=== PATIENT | female | born 1955 | race Caucasian/White ===

== ENCOUNTER 2017-02-09 13:16 | Emergency (ER) | payer MEDICAID ==
--- NOTE | 2017-02-09 13:21 | EDM.PDOC ---
ED HPI GENERAL MEDICAL PROBLEM - General Stated Complaint: HIGH BP Time Seen by Provider: 02/09/17 13:18 Source of Information: Reports: Patient History Limitations: Reports: No Limitations - History of Present Illness INITIAL COMMENTS - FREE TEXT/NARRATIVE: HISTORY AND PHYSICAL: Hypertension HISTORY AND PHYSICAL: Hypertension History of present illness: Patient is a 68-year-old female that presents to the emergency room today from the [facility] with complaints of high blood pressure. This morning patient states she was in a hurry and did not take her blood pressure medication and continued to her doctor's appointment with Dr. Jackson. She reports that she was seeing Dr. Scout Jackson for a COPD exacerbation follow-up. Reports she has had productive cough with thick yellow sputum and mild low back pain when coughing/week. She was seen in the clinic on Sunday02/06/2017 and put on doxycycline and a Z-Deng which she has been taking. While being seen in the clinic Dr. Jackson noted a blood pressure of 218/108 and had been given 0.2 of clonidine by mouth without any change in blood pressure reading. Patient denies any chest pain, nausea, vomiting, change in vision. History of COPD, hypertension, depression Review of systems: As per history of present illness and below otherwise all systems reviewed and negative. Past medical history: As per history of present illness and as reviewed below otherwise noncontributory. Surgical history: As per history of present illness and as reviewed below otherwise noncontributory. Social history: No reported history of drug or alcohol abuse. Family history: As per history of present illness and as reviewed below otherwise noncontributory. Physical exam: HEENT: Atraumatic, normocephalic, pupils reactive, negative for conjunctival pallor or scleral icterus, mucous membranes moist, throat clear, neck supple, nontender, trachea midline. Lungs: Clear to auscultation, breath sounds equal bilaterally, chest nontender. Loose cough noted. Heart: S1S2, regular, negative for clicks, rubs, or JVD. Abdomen: Soft, nondistended, nontender. Negative for masses or hepatosplenomegaly. Negative for costovertebral tenderness. Pelvis: Stable nontender. Genitourinary: Deferred. Rectal: Deferred. Extremities: Atraumatic, negative for cords or calf pain. Neurovascular unremarkable. Neuro: Awake, alert, oriented. Cranial nerves II through XII unremarkable. Cerebellum unremarkable. Motor and sensory unremarkable throughout. Exam nonfocal. Diagnostics: CBC, CMP, EKG, CXR Therapeutics: BP monitoring Impression: Hypertension Definitive disposition and diagnosis as appropriate pending reevaluation and review of above. Onset: Today Improves with: Reports: None Worsens with: Reports: Other (Coughing) Associated Symptoms: Reports: Cough head Pain Score (Numeric/FACES): 5 chest Pain Score (Numeric/FACES): 3 - Related Data Allergies Allergy/AdvReac Type Severity Reaction Status Date / Time No Known Allergies Allergy Verified 02/09/17 13:20 Home Meds: Home Meds Venlafaxine [Effexor XR] 75 mg PO DAILY 11/07/13 [History] Albuterol [Proair HFA] 1 - 2 puff INH Q4H PRN 06/02/14 [History] Verapamil HCl [Calan Sr] 180 mg PO DAILY 05/22/16 [History] Albuterol/Ipratropium [DuoNeb 3.0-0.5 MG/3 ML] 3 ml NEB Q6H PRN #1 box 05/26/16 [Rx] Citalopram [Celexa] 20 mg PO DAILY #30 tablet 05/26/16 [Rx] Fluticasone/Salmeterol [Advair Diskus 500-50] 1 puff INH BID #1 diskus 05/26/16 [Rx] Levofloxacin [Levaquin] 750 mg PO Q48H #3 tablet 05/26/16 [Rx] Lisinopril 20 mg PO DAILY #30 tablet 05/26/16 [Rx] Multivitamin [Multi-Day Vitamins] 1 each PO DAILY #1 bottle 05/26/16 [Rx] Venlafaxine [Effexor] 75 mg PO DAILY #60 tablet 05/26/16 [Rx] predniSONE 10 mg PO .TAPER #30 tablet 05/26/16 [Rx] Past Medical History HEENT History: Reports: None Cardiovascular History: Reports: Hypertension Respiratory History: Reports: COPD Gastrointestinal History: Reports: Diverticulosis Other Genitourinary History: kidney stones 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 Denies: Diabetes, Type II, Hypothyroidism Hematologic History: Reports: None Dermatologic History: Reports: None - Infectious Disease History Infectious Disease History: Reports: Chicken Pox, Hepatitis C, Measles, Mumps - Past Surgical History HEENT Surgical History: Reports: None Cardiovascular Surgical History: Reports: None GI Surgical History: Reports: Appendectomy Female Surgical History: Reports: None Other Musculoskeletal Surgeries/Procedures:: rt shoulder surg Social & Family History - Family History Family Medical History: Noncontributory - Tobacco Use Smoking Status *Q: Former Smoker Years of Tobacco use: 30 Packs/Tins Daily: 0.2 Used Tobacco, but Quit: No Month Tobacco Last Used: 11/2014 Second Hand Smoke Exposure: Yes - Caffeine Use Caffeine Use: Reports: Coffee, Soda, Tea - Alcohol Use Days Per Week of Alcohol Use: 7 Number of Drinks Per Day: 4 Total Drinks Per Week: 28 - Recreational Drug Use Recreational Drug Use: No Drug Use in Last 12 Months: Yes Recreational Drug Type: Reports: Methamphetamine ED ROS GENERAL - Review of Systems Review Of Systems: ROS reveals no pertinent complaints other than HPI. ED EXAM, GENERAL - Physical Exam Exam: See Below (See dictation) Course - Vital Signs Last Recorded V/S: Last Vital Signs Temp 36.2 C 02/09/17 13:16 Pulse 79 02/09/17 14:57 Resp 18 02/09/17 14:57 BP 194/109 H 02/09/17 14:57 Pulse Ox 95 02/09/17 14:57 - Orders/Labs/Meds Orders: Active Orders 24 hr Category Date Time Status EKG Documentation Completion [RC] STAT Care 02/09/17 13:35 Active Labs: Laboratory Tests 02/09/17 02/09/17 Range/Units 13:40 13:40 WBC 11.68 H (4.0-11.0) K/uL RBC 4.79 (4.30-5.90) M/uL Hgb 13.8 (12.0-16.0) g/dL Hct 40.1 (36.0-46.0) % MCV 83.7 (80.0-98.0) fL MCH 28.8 (27.0-32.0) pg MCHC 34.4 (31.0-37.0) g/dL RDW Std Deviation 42.7 (28.0-62.0) fl RDW Coeff of Jamil 14 (11.0-15.0) % Plt Count 225 (150-400) K/uL MPV 9.30 (7.40-12.00) fL Neut % (Auto) 73.4 (48.0-80.0) % Lymph % (Auto) 17.2 (16.0-40.0) % [place] % (Auto) 8.8 (0.0-15.0) % Eos % (Auto) 0.4 (0.0-7.0) % Baso % (Auto) 0.2 (0.0-1.5) % Neut # (Auto) 8.6 H (1.4-5.7) K/uL Lymph # (Auto) 2.0 (0.6-2.4) K/uL [place] # (Auto) 1.0 H (0.0-0.8) K/uL Eos # (Auto) 0.1 (0.0-0.7) K/uL Baso # (Auto) 0.0 (0.0-0.1) K/uL Nucleated RBC % 0.0 /100WBC Nucleated RBCs # 0 K/uL Sodium 136 (136-146) mmol/L Potassium 4.0 (3.5-5.1) mmol/L Chloride 104 (98-110) mmol/L Carbon Dioxide 21 (21-31) mmol/L BUN 30 H (6.0-23.0) mg/dL Creatinine 1.2 (0.6-1.5) mg/dL Est Cr Clr Drug Dosing TNP Estimated GFR (MDRD) 45.8 ml/min Glucose 107 (60-110) mg/dL Calcium 9.7 (8.8-10.8) mg/dL Total Bilirubin 0.4 (0.1-1.5) mg/dL AST 19 (5-40) IU/L ALT 12 (8-54) IU/L Alkaline Phosphatase 128 (40-150) Total Protein 8.0 (6.0-8.0) g/dL Albumin 4.2 (3.4-4.8) g/dL Globulin 3.8 H (2.0-3.5) g/dL Albumin/Globulin Ratio 1.1 L (1.3-2.8) Meds: Medications Discontinued Medications Generic Name Dose Route Start Last Admin Trade Name Nancy PRN Reason Stop Dose Admin Lisinopril 20 mg 02/09/17 13:53 02/09/17 14:04 Prinivil PO 02/09/17 13:54 20 mg ONETIME ONE Administration Verapamil HCl 180 mg 02/09/17 13:53 02/09/17 14:12 Calan Sr PO 02/09/17 13:54 180 mg ONETIME ONE Administration Departure - Departure Time of Disposition: 15:27 Disposition: Home, Self-Care 01 Clinical Impression: Hypertension Qualifiers: Hypertension type: essential hypertension Qualified Code(s): I10 - Essential ( primary) hypertension - Discharge Information Additional Instructions: The following information is given to patients seen in the emergency department who are being discharged to home. This information is to outline your options for follow-up care. We provide all patients seen in our emergency department with a follow-up referral. The need for follow-up, as well as the timing and circumstances, are variable depending upon the specifics of your emergency department visit. If you don't have a primary care physician on staff, we will provide you with a referral. We always advise you to contact your personal physician following an emergency department visit to inform them of the circumstance of the visit and for follow-up with them and/or the need for any referrals to a consulting specialist. The emergency department will also refer you to a specialist when appropriate. This referral assures that you have the opportunity for followup care with a specialist. All of these measure are taken in an effort to provide you with optimal care, which includes your followup. Under all circumstances we always encourage you to contact your private physician who remains a resource for coordinating your care. When calling for followup care, please make the office aware that this follow-up is from your recent emergency room visit. If for any reason you are refused follow-up, please contact the [facility] emergency department at and asked to speak to the emergency department charge nurse. [facility] [address] [place] [id number] 1. Please take all your medications as prescribed. 2. Follow-up with her primary care provider in the next 1-2 days. Return to the ED as needed as discussed - My Orders Last 24 Hours: My Active Orders 02/09/17 13:35 EKG Documentation Completion [RC] STAT - Assessment/Plan Last 24 Hours: My Active Orders 02/09/17 13:35 EKG Documentation Completion [RC] STAT
[2017-02-09] MEDS ORDERED: Lisinopril 10 MG Tab PO ONE (13:53)
[2017-02-09] MEDS ORDERED: Verapamil 180 MG Tab.ER PO ONE (13:53)
[2017-02-09 14:05] LABS: CHLORIDE,CL 104 mmol/L (98-110); SODIUM,NA 136 mmol/L (136-146)
--- NOTE | 2017-02-09 14:38 | CR ---
EXAMINATION: Two-view chest (PA and Lateral views). HISTORY: Hypertension. Comparison: 08/02/2016. FINDINGS: The trachea is midline. The cardiomediastinal silhouette is within normal limits. No pulmonary infilt rates, effusions or pneumothorax. Mild chronic interstitial prominence most prominent within the lung bases. Osseous structures appear unremarkable. IMPRESSION: No acute cardiopulmonary process.
[2017-02-09 15:56] VITALS: BP 156/92
== END 2017-02-09 15:54 | disposition home or self-care (01) ==
LOC: MW.ED 13:16
DX: I10 Essential (primary) hypertension (principal); J44.9 Chronic obstructive pulmonary disease, unspecified; F32.9 Major depressive disorder, single episode, unspecified; Z79.899 Other long term (current) drug therapy; Z87.442 Personal history of urinary calculi; Z90.49 Acquired absence of other specified parts of digestive tract; Z87.891 Personal history of nicotine dependence
CPT/HCPCS: 36415; 71020; 80053; 85025; 93005; 99284; A9270

== ENCOUNTER 2017-05-14 18:23 | Emergency (ER) | payer SELFPAY ==
--- NOTE | 2017-05-14 18:31 | EDM.PDOC ---
ED HPI GENERAL MEDICAL PROBLEM - General Stated Complaint: PT HAS HIGH BLOOD PRESSURE Time Seen by Provider: 05/14/17 18:55 Source of Information: Reports: Patient History Limitations: Reports: No Limitations - History of Present Illness INITIAL COMMENTS - FREE TEXT/NARRATIVE: HISTORY AND PHYSICAL: High Blood Pressure History of present illness: Patient is a 61-year-old female who presents to the emergency room today with complaints of high blood pressure. She is currently incarcerated in [facility] and is chaperoned by a law officer. Today she has had a headache with some nausea. She' s had similar symptoms when her blood pressure high. Today's reading was 173/ 118. States she is on lisinopril, which she takes daily. Sees Dr. Scout Jackson regularly, which she saw approximately 2 months ago. She is on a where she had an adjustment in her blood pressure medication at that time. Denies any change in vision, chest pain, shortness of breath, vomiting or diarrhea. She denies any recent trauma, head injury, loss of consciousness or seizures. Denies any dysuria, change in bowel pattern. Patient has a past medical history of COPD, hypertension, and diabetes. She was seen in the emergency room 02/09/2017 complaints of high blood pressure. Review of systems: As per history of present illness and below otherwise all systems reviewed and negative. Past medical history: As per history of present illness and as reviewed below otherwise noncontributory. Surgical history: As per history of present illness and as reviewed below otherwise noncontributory. Social history: No reported history of drug or alcohol abuse. Family history: As per history of present illness and as reviewed below otherwise noncontributory. Physical exam: Gen.: Well-developed and under-nourished 61-year-old female. Appears nontoxic and in no acute distress. Alert and oriented HEENT: Atraumatic, normocephalic, pupils reactive, negative for conjunctival pallor or scleral icterus, mucous membranes moist, throat clear, neck supple, nontender, trachea midline. Lungs: Clear to auscultation, breath sounds equal bilaterally, chest nontender. Heart: S1S2, regular, negative for clicks, rubs, or JVD. Abdomen: Soft, nondistended, nontender. Negative for masses or hepatosplenomegaly. Negative for costovertebral tenderness. Pelvis: Stable, suprapubic tenderness. Genitourinary: Deferred. Rectal: Deferred. Extremities: Atraumatic, negative for cords or calf pain. Neurovascular unremarkable. Neuro: Awake, alert, oriented. Cranial nerves II through XII unremarkable. Cerebellum unremarkable. Motor and sensory unremarkable throughout. Exam nonfocal. Upon physical examination patient states she has had an upset stomach and has some suprapubic tenderness with palpation. I will add a UA on to assess for UTI , long with routine lab work. CT scan is negative. Lab work is within normal limits, other than a urinalysis that shows a UTI. Will increase her lisinopril to 30 mg once daily (from 20mg QD ), I will only dispense 15 tablets as I do want her to follow-up with her primary caregiver for reevaluation of her blood pressure. Current blood pressure is 178/98, which has improved since her first arrival. Her headache has also improved at a 3 out of 10. Macrobid 100 mg 1 tab twice a day 5 days will be dispensed for her UTI. I also would like her to follow-up with her primary care provider to make sure that this has resolved. 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 She voices understanding and is agreeable to plan of care. Diagnostics: CBC, CMP, UA Therapeutics: IV fluid, Zofran, Toradol, clonidine, Benadryl Impression: Hypertension UTI Plan: 1. Blood pressure continues to be elevated. Will increase the lisinopril from 20 mg now to 30 mg once daily. Only 15 tablets have been prescribed at this time as I do want to to follow-up with your primary care provider for reevaluation. He may benefit just your medications as he sees fit. 2. Your urinalysis shows a UTI. I will treat that with Macrobid 100 mg, 1 tab twice daily for 5 days. Please follow-up with your primary caregiver to ensure that this has resolved. Increase your oral fluid intake. May take Azo over-the- counter as needed. 3. Follow-up with your primary caregiver in the next 1-2 days. Return to the ED as needed and as discussed. Definitive disposition and diagnosis as appropriate pending reevaluation and review of above. Head Pain Score (Numeric/FACES): 9 - Related Data Allergies Allergy/AdvReac Type Severity Reaction Status Date / Time No Known Allergies Allergy Verified 02/09/17 13:20 Home Meds: Home Meds Lisinopril 20 mg PO DAILY #30 tablet 05/26/16 [Rx] Venlafaxine [Effexor] 75 mg PO DAILY #60 tablet 05/26/16 [Rx] Past Medical History - Past Health History Medical/Surgical History: Denies Medical/Surgical History HEENT History: Reports: None Cardiovascular History: Reports: Hypertension Respiratory History: Reports: COPD Gastrointestinal History: Reports: Diverticulosis Other Genitourinary History: kidney stones 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 Denies: Diabetes, Type II, Hypothyroidism Hematologic History: Reports: None Dermatologic History: Reports: None - Infectious Disease History Infectious Disease History: Reports: Chicken Pox, Hepatitis C, Measles, Mumps - Past Surgical History HEENT Surgical History: Reports: None Cardiovascular Surgical History: Reports: None GI Surgical History: Reports: Appendectomy Female Surgical History: Reports: None Other Musculoskeletal Surgeries/Procedures:: rt shoulder surg Social & Family History - Family History Family Medical History: Noncontributory - Tobacco Use Smoking Status *Q: Former Smoker Years of Tobacco use: 30 Packs/Tins Daily: 0.2 Used Tobacco, but Quit: No Month Tobacco Last Used: 11/2014 Second Hand Smoke Exposure: Yes - Caffeine Use Caffeine Use: Reports: Coffee, Soda, Tea - Alcohol Use Days Per Week of Alcohol Use: 7 Number of Drinks Per Day: 4 Total Drinks Per Week: 28 - Recreational Drug Use Recreational Drug Use: No Drug Use in Last 12 Months: Yes Recreational Drug Type: Reports: Methamphetamine ED ROS GENERAL - Review of Systems Review Of Systems: ROS reveals no pertinent complaints other than HPI. ED EXAM, GENERAL - Physical Exam Exam: See Below (See dictation) Course - Vital Signs Last Recorded V/S: Last Vital Signs Temp 98.8 F 05/14/17 18:41 Pulse 118 H 05/14/17 18:41 Resp 20 05/14/17 18:41 BP 184/112 H 05/14/17 19:16 Pulse Ox 97 05/14/17 18:41 - Orders/Labs/Meds Orders: Active Orders 24 hr Category Date Time Status Head wo Cont [CT] Stat Exams 05/14/17 19:23 Taken Labs: Laboratory Tests 05/14/17 05/14/17 05/14/17 Range/Units 19:06 19:06 19:50 WBC 8.58 (4.0-11.0) K/uL RBC 5.20 (4.30-5.90) M/uL Hgb 14.8 (12.0-16.0) g/dL Hct 42.5 (36.0-46.0) % MCV 81.7 (80.0-98.0) fL MCH 28.5 (27.0-32.0) pg MCHC 34.8 (31.0-37.0) g/dL RDW Std Deviation 37.9 (28.0-62.0) fl RDW Coeff of Jamil 13 (11.0-15.0) % Plt Count 189 (150-400) K/uL MPV 9.20 (7.40-12.00) fL Neut % (Auto) 68.3 (48.0-80.0) % Lymph % (Auto) 25.9 (16.0-40.0) % [place] % (Auto) 4.8 (0.0-15.0) % Eos % (Auto) 0.8 (0.0-7.0) % Baso % (Auto) 0.2 (0.0-1.5) % Neut # (Auto) 5.9 H (1.4-5.7) K/uL Lymph # (Auto) 2.2 (0.6-2.4) K/uL [place] # (Auto) 0.4 (0.0-0.8) K/uL Eos # (Auto) 0.1 (0.0-0.7) K/uL Baso # (Auto) 0.0 (0.0-0.1) K/uL Nucleated RBC % 0.0 /100WBC Nucleated RBCs # 0 K/uL Sodium 138 (136-146) mmol/L Potassium 4.1 (3.5-5.1) mmol/L Chloride 107 (98-110) mmol/L Carbon Dioxide 21 (21-31) mmol/L BUN 23 (6.0-23.0) mg/dL Creatinine 1.3 (0.6-1.5) mg/dL Est Cr Clr Drug Dosing TNP Estimated GFR (MDRD) 41.8 ml/min Glucose 142 H (60-110) mg/dL Calcium 10.1 (8.8-10.8) mg/dL Total Bilirubin 0.5 (0.1-1.5) mg/dL AST 24 (5-40) IU/L ALT 19 (8-54) IU/L Alkaline Phosphatase 86 (40-150) Total Protein 8.0 (6.0-8.0) g/dL Albumin 4.5 (3.4-4.8) g/dL Globulin 3.5 (2.0-3.5) g/dL Albumin/Globulin Ratio 1.29 Urine Color YELLOW Urine Appearance CLEAR Urine pH 6.5 (5.0-8.0) Ur Specific [place] <= 1.005 (1.001-1.035) Urine Protein NEGATIVE (NEGATIVE) mg/dL Urine Glucose (UA) NEGATIVE (NEGATIVE) mg/dL Urine Ketones NEGATIVE (NEGATIVE) mg/dL Urine Occult Blood MODERATE (NEGATIVE) Urine Nitrite NEGATIVE (NEGATIVE) Urine Bilirubin NEGATIVE (NEGATIVE) Urine Urobilinogen 0.2 (<2.0) EU/dL Ur Leukocyte Esterase LARGE (NEGATIVE) Urine RBC 2-3 (0-2/HPF) Urine WBC 8-12 (0-5/HPF) Ur Epithelial Cells MODERATE (NONE-FEW) Urine Bacteria 2+ H (NEGATIVE) Meds: Medications Discontinued Medications Generic Name Dose Route Start Last Admin Trade Name Freq PRN Reason Stop Dose Admin Clonidine HCl 0.1 mg 05/14/17 18:51 05/14/17 19:16 Catapres PO 05/14/17 18:52 0.1 mg ONETIME ONE Administration Diphenhydramine HCl 25 mg 05/14/17 20:17 Benadryl IVPUSH 05/14/17 20:18 ONETIME ONE Sodium Chloride 1,000 mls @ 999 mls/hr 05/14/17 18:50 05/14/17 19:16 Normal Saline IV 05/14/17 19:50 999 mls/hr STAT ONE Administration Ketorolac Tromethamine 30 mg 05/14/17 18:54 05/14/17 19:16 Toradol IVPUSH 05/14/17 18:55 30 mg ONETIME ONE Administration Nitrofurantoin Macrocrystals 100 mg 05/14/17 20:24 Macrobid PO 05/14/17 20:25 ONETIME ONE Ondansetron HCl 4 mg 05/14/17 18:50 05/14/17 19:17 Zofran IVPUSH 05/14/17 18:51 4 mg ONETIME ONE Administration Departure - Departure Time of Disposition: 20:32 Disposition: Home, Self-Care 01 Clinical Impression: Hypertension Qualifiers: Hypertension type: essential hypertension Qualified Code(s): I10 - Essential ( primary) hypertension UTI (urinary tract infection) Qualifiers: Urinary tract infection type: site unspecified Hematuria presence: without hematuria Qualified Code(s): N39.0 - Urinary tract infection, site not specified - Discharge Information Referrals: PCP,None [Primary Care Provider] - Additional Instructions: My general discharge The following information is given to patients seen in the emergency department who are being discharged to home. This information is to outline your options for follow-up care. We provide all patients seen in our emergency department with a follow-up referral. The need for follow-up, as well as the timing and circumstances, are variable depending upon the specifics of your emergency department visit. If you don't have a primary care physician on staff, we will provide you with a referral. We always advise you to contact your personal physician following an emergency department visit to inform them of the circumstance of the visit and for follow-up with them and/or the need for any referrals to a consulting specialist. The emergency department will also refer you to a specialist when appropriate. This referral assures that you have the opportunity for follow-up care with a specialist. All of these measure are taken in an effort to provide you with optimal care, which includes your follow-up. Under all circumstances we always encourage you to contact your private physician who remains a resource for coordinating your care. When calling for follow-up care, please make the office aware that this follow-up is from your recent emergency room visit. If for any reason you are refused follow-up, please contact the [facility] Emergency Department at and asked to speak to the emergency department charge nurse. [facility] [address] [place] [id number] 1. Blood pressure continues to be elevated, though has decreased since arrival. Will increase the lisinopril from 20 mg now to 30 mg once daily. Only 15 tablets have been prescribed at this time as I do want to to follow-up with your primary care provider for reevaluation. He may benefit just your medications as he sees fit. 2. Your urinalysis shows a UTI. I will treat that with Macrobid 100 mg, 1 tab twice daily for 5 days. Please follow-up with your primary caregiver to ensure that this has resolved. Increase your oral fluid intake. May take Azo over-the- counter as needed. 3. Follow-up with your primary caregiver in the next 1-2 days. Return to the ED as needed and as discussed. - My Orders Last 24 Hours: My Active Orders 05/14/17 19:23 Head wo Cont [CT] Stat - Assessment/Plan Last 24 Hours: My Active Orders 05/14/17 19:23 Head wo Cont [CT] Stat
[2017-05-14] MEDS ORDERED: Ondansetron 4 MG/2 ML SDV IVPUSH ONE (18:50)
[2017-05-14] MEDS ORDERED: Sodium Chloride 0.9% 1,000 ML IV ONE (18:50)
[2017-05-14] MEDS ORDERED: cloNIDine 0.1 MG Tab PO ONE (18:51)
[2017-05-14] MEDS ORDERED: Ketorolac 30 MG/ML SDV IVPUSH ONE (18:54)
[2017-05-14 19:42] LABS: CHLORIDE,CL 107 mmol/L (98-110); SODIUM,NA 138 mmol/L (136-146)
[2017-05-14] MEDS ORDERED: diphenhydrAMINE 50 MG/ML SDV IVPUSH ONE (20:17)
[2017-05-14] MEDS ORDERED: Nitrofurantoin Monohydrate/Macrocrystalline 100 MG Cap PO ONE (20:24)
[2017-05-15 02:49] VITALS: BP 136/58
--- NOTE | 2017-05-15 11:01 | CT ---
EXAM DATE: 05/14/17 PATIENT'S AGE: 61 Patient: BETTY VELEZ Facility: [place], [place] Site . Site : [id number] Study: CT Head [id number] 7:44:22 PM Ordering Physician: Doctor Dubon Final Report: INDICATION : Headache, elevated BP. TECHNIQUE : Noncontrast CT scan of brain. Axial images. Bone windows. COMPARISON: 05/23/16. FINDINGS : No acute intra or extra-axial hemorrhage. The ventricles and sulci are normal size, shape and configuration. No visualized intracranial mass or additional abnormal attenuation. Bony calvarium is intact. Retention cyst left maxillary sinus. IMPRESSION : No new visualized acute intracranial radiographic abnormality. No change previous. Please note that all CT scans at this facility use dose modulation, iterative reconstruction, and/or weight-based dosing when appropriate to reduce radiation dose to as low as reasonably achievable. Dictated by Enoch Tirado MD @ May 14 2017 7:50PM (Electronic Signature) Report Signed by Proxy. TELLY
== END 2017-05-14 21:25 | disposition home or self-care (01) ==
LOC: MW.ED 18:23
DX: I10 Essential (primary) hypertension (principal); N39.0 Urinary tract infection, site not specified; E11.9 Type 2 diabetes mellitus without complications; Z87.891 Personal history of nicotine dependence; Z79.899 Other long term (current) drug therapy
CPT/HCPCS: 36415; 70450; 80053; 81001; 85025; 96361; 96374; 96375; 99284; A9270; J1200; J1885; J2405; J7040

== ENCOUNTER 2017-05-21 12:25 | Emergency (ER) | payer SELFPAY ==
[2017-05-21] MEDS ORDERED: Aspirin 81 MG Tab.Chew PO ONE (13:04)
--- NOTE | 2017-05-21 13:05 | EDM.PDOC ---
ED HPI GENERAL MEDICAL PROBLEM - General Chief Complaint: Cardiovascular Problem Stated Complaint: HBP Time Seen by Provider: 05/21/17 12:55 Source of Information: Reports: Patient History Limitations: Reports: No Limitations - History of Present Illness INITIAL COMMENTS - FREE TEXT/NARRATIVE: HISTORY AND PHYSICAL: History of present illness: [Patient comes to the emergency room under the supervision of a records officer. She has a history of hypertension for which she takes lisinopril 30 mg daily, and verapamil 120mg daily. She has been taking her medication [facility]. She admits to a history of methamphetamine use approximately 30 days ago and cocaine use approximately one year ago. Describes the sensation in her chest as a sharp poking sensation in her left chest through to her back, like a stick poking her, dizziness and a pounding sensation in her chest. She also has a headache to the base of her skull. No recent falls or injury. She denies weakness and falls. No numbness or tingling. Review of systems: As per history of present illness and below otherwise all systems reviewed and negative. Past medical history: As per history of present illness and as reviewed below otherwise noncontributory. Surgical history: As per history of present illness and as reviewed below otherwise noncontributory. Social history: No reported history of drug or alcohol abuse. Family history: As per history of present illness and as reviewed below otherwise noncontributory. Physical exam: HEENT: Atraumatic, normocephalic. PERRLA. EOMI. oral mucous membranes are pink and moist. No tonsillar swelling, erythema or exudate. Lungs: Clear to auscultation, breath sounds equal bilaterally. Heart: S1S2, regular rate and rhythm Abdomen: Soft, nondistended, nontender. Bowel sounds are normoactive throughout. Negative for masses guarding or rebound. Pelvis: Stable nontender. Genitourinary: Deferred. Rectal: Deferred. Extremities: Atraumatic, no swelling or cyanosis to feet or legs Neurovascular unremarkable. Neuro: Awake, alert, oriented. Facial movements are symmetrical. Movement of upper and lower extremities are smooth and symmetrical. Cranial nerves II through XII unremarkable. No slurred speech. Motor and sensory unremarkable throughout. Exam nonfocal. Diagnostics: [CBC, CMP, troponin, chest x-ray, EKG] Therapeutics: [Clonidine 0.1 mg] Impression: [HTN] Plan: [[facility] for clonidine 0.1 mg #60 sig one tab twice a day prn, if systolic greater than 160 or diastolic greater than 95. 0 refills. Recommend follow-up with primary care upon release from [place]. Patient verbalized understanding of today's plan.] Definitive disposition and diagnosis as appropriate pending reevaluation and review of above. chest Pain Score (Numeric/FACES): 7 - Related Data Allergies Allergy/AdvReac Type Severity Reaction Status Date / Time No Known Allergies Allergy Verified 05/21/17 12:43 Home Meds: Home Meds Venlafaxine [Effexor] 75 mg PO DAILY #60 tablet 05/26/16 [Rx] Lisinopril 30 mg PO DAILY 05/21/17 [History] Nitrofurantoin Macrocrystal [Macrodantin] 100 mg PO BID 05/21/17 [History] Verapamil [Calan SR] 180 mg PO DAILY 05/21/17 [History] Past Medical History - Past Health History Medical/Surgical History: Denies Medical/Surgical History HEENT History: Reports: None Cardiovascular History: Reports: Hypertension Respiratory History: Reports: COPD Gastrointestinal History: Reports: Diverticulosis Other Genitourinary History: kidney stones 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 Musculoskeletal History: Reports: None Neurological History: Reports: None Psychiatric History: Reports: Addiction, Anxiety, Depression Endocrine/Metabolic History: Reports: None Hematologic History: Reports: None Dermatologic History: Reports: None - Infectious Disease History Infectious Disease History: Reports: Chicken Pox, Hepatitis C, Measles, Mumps - Past Surgical History HEENT Surgical History: Reports: None Cardiovascular Surgical History: Reports: None GI Surgical History: Reports: Appendectomy Female Surgical History: Reports: None Other Musculoskeletal Surgeries/Procedures:: rt shoulder surg Social & Family History - Family History Family Medical History: Noncontributory - Tobacco Use Smoking Status *Q: Former Smoker Years of Tobacco use: 30 Packs/Tins Daily: 0.2 Used Tobacco, but Quit: Yes Month Tobacco Last Used: 1 Second Hand Smoke Exposure: Yes - Caffeine Use Caffeine Use: Reports: Coffee, Soda, Tea - Alcohol Use Days Per Week of Alcohol Use: 7 Number of Drinks Per Day: 4 Total Drinks Per Week: 28 - Recreational Drug Use Recreational Drug Use: No Drug Use in Last 12 Months: Yes Recreational Drug Type: Reports: Methamphetamine ED ROS GENERAL - Review of Systems Review Of Systems: ROS reveals no pertinent complaints other than HPI. ED EXAM, GENERAL - Physical Exam Exam: See Below Course - Vital Signs Last Recorded V/S: Last Vital Signs Temp 97.1 F 05/21/17 12:40 Pulse 73 05/21/17 15:25 Resp 16 05/21/17 15:25 BP 114/87 05/21/17 15:25 Pulse Ox 95 05/21/17 15:25 - Orders/Labs/Meds Orders: Active Orders 24 hr Category Date Time Status EKG Documentation Completion [RC] STAT Care 05/21/17 12:50 Active Labs: Laboratory Tests 05/21/17 05/21/17 Range/Units 13:11 13:11 WBC 6.36 (4.0-11.0) K/uL RBC 4.92 (4.30-5.90) M/uL Hgb 13.7 (12.0-16.0) g/dL Hct 40.6 (36.0-46.0) % MCV 82.5 (80.0-98.0) fL MCH 27.8 (27.0-32.0) pg MCHC 33.7 (31.0-37.0) g/dL RDW Std Deviation 38.5 (28.0-62.0) fl RDW Coeff of Jamil 13 (11.0-15.0) % Plt Count 171 (150-400) K/uL MPV 9.60 (7.40-12.00) fL Neut % (Auto) 48.6 (48.0-80.0) % Lymph % (Auto) 35.4 (16.0-40.0) % [place] % (Auto) 11.3 (0.0-15.0) % Eos % (Auto) 4.4 (0.0-7.0) % Baso % (Auto) 0.3 (0.0-1.5) % Neut # (Auto) 3.1 (1.4-5.7) K/uL Lymph # (Auto) 2.3 (0.6-2.4) K/uL [place] # (Auto) 0.7 (0.0-0.8) K/uL Eos # (Auto) 0.3 (0.0-0.7) K/uL Baso # (Auto) 0.0 (0.0-0.1) K/uL Nucleated RBC % 0.0 /100WBC Nucleated RBCs # 0 K/uL Sodium 138 (136-146) mmol/L Potassium 4.8 (3.5-5.1) mmol/L Chloride 106 (98-110) mmol/L Carbon Dioxide 24 (21-31) mmol/L BUN 20 (6.0-23.0) mg/dL Creatinine 1.1 (0.6-1.5) mg/dL Est Cr Clr Drug Dosing TNP Estimated GFR (MDRD) 50.7 ml/min Glucose 84 (60-110) mg/dL Calcium 10.1 (8.8-10.8) mg/dL Total Bilirubin 0.4 (0.1-1.5) mg/dL AST 25 (5-40) IU/L ALT 19 (8-54) IU/L Alkaline Phosphatase 74 (40-150) Troponin I < 0.10 (0.0-0.29) NG/ML Total Protein 7.8 (6.0-8.0) g/dL Albumin 4.2 (3.4-4.8) g/dL Globulin 3.6 H (2.0-3.5) g/dL Albumin/Globulin Ratio 1.2 L (1.3-2.8) Meds: Medications Discontinued Medications Generic Name Dose Route Start Last Admin Trade Name Tristanq PRN Reason Stop Dose Admin Aspirin 324 mg 05/21/17 13:04 05/21/17 13:15 Aspirin PO 05/21/17 13:05 324 mg ONETIME ONE Administration Clonidine HCl 0.1 mg 05/21/17 14:06 05/21/17 14:17 Catapres PO 05/21/17 14:07 0.1 mg ONETIME ONE Administration Departure - Departure Time of Disposition: 15:15 Disposition: Home, Self-Care 01 Condition: Good Clinical Impression: Hypertension Qualifiers: Hypertension type: essential hypertension Qualified Code(s): I10 - Essential ( primary) hypertension Instructions: Hypertension Referrals: PCP,None [Primary Care Provider] - Forms: ED Department Discharge Additional Instructions: The following information is given to patients seen in the emergency department who are being discharged to home. This information is to outline your options for follow-up care. We provide all patients seen in our emergency department with a follow-up referral. The need for follow-up, as well as the timing and circumstances, are variable depending upon the specifics of your emergency department visit. If you don't have a primary care physician on staff, we will provide you with a referral. We always advise you to contact your personal physician following an emergency department visit to inform them of the circumstance of the visit and for follow-up with them and/or the need for any referrals to a consulting specialist. The emergency department will also refer you to a specialist when appropriate. This referral assures that you have the opportunity for follow-up care with a specialist. All of these measure are taken in an effort to provide you with optimal care, which includes your follow-up. Under all circumstances we always encourage you to contact your private physician who remains a resource for coordinating your care. When calling for follow-up care, please make the office aware that this follow-up is from your recent emergency room visit. If for any reason you are refused follow-up, please contact the [facility] emergency department at and asked to speak to the emergency department charge nurse. [facility] [address] [place] [id number] Follow-up with your primary care provider at the clinic listed above when you' re released [facility]. Add clonidine 0.1 mg twice a day. Continue to monitor blood pressure. Return to ER as needed as discussed. - My Orders Last 24 Hours: My Active Orders 05/21/17 12:50 EKG Documentation Completion [RC] STAT - Assessment/Plan Last 24 Hours: My Active Orders 05/21/17 12:50 EKG Documentation Completion [RC] STAT
[2017-05-21 13:43] LABS: CHLORIDE,CL 106 mmol/L (98-110); SODIUM,NA 138 mmol/L (136-146)
--- NOTE | 2017-05-21 13:57 | CR ---
EXAMINATION: Two-view chest (PA and Lateral views). HISTORY: Shortness of breath. FINDINGS: The trachea is midline. The cardiomediastinal silhouette is within normal limits. No pulmonary infilt rates, effusions or pneumothorax. Mild interstitial prominence and hyperinflation. Osseous structures appear unremarkable. IMPRESSION: No acute cardiopulmonary process.
[2017-05-21] MEDS ORDERED: cloNIDine 0.1 MG Tab PO ONE (14:06)
[2017-05-21 15:31] VITALS: BP 114/87
== END 2017-05-21 15:25 | disposition home or self-care (01) ==
LOC: MW.ED 12:25
DX: I10 Essential (primary) hypertension (principal); Z79.899 Other long term (current) drug therapy; Z87.891 Personal history of nicotine dependence
CPT/HCPCS: 36415; 71020; 80053; 84484; 85025; 93005; 99285; A9270; 99283

== ENCOUNTER 2017-06-07 10:43 | Emergency (ER) | payer SELFPAY ==
--- NOTE | 2017-06-07 11:16 | EDM.PDOC ---
ED HPI GENERAL MEDICAL PROBLEM - General Chief Complaint: Respiratory Problem Stated Complaint: SHORTNESS OF BREATH Time Seen by Provider: 06/07/17 11:14 Source of Information: Reports: Patient History Limitations: Reports: No Limitations - History of Present Illness INITIAL COMMENTS - FREE TEXT/NARRATIVE: History of present illness: [61-year-old female comes in complaining of left leg swelling and pain. Patient indicates that it is gotten progressively worse over the last 24 hours and she can barely tolerate ambulating.] Review of systems: As per history of present illness and below otherwise all systems reviewed and negative. Past medical history: As per history of present illness and as reviewed below otherwise noncontributory. Surgical history: As per history of present illness and as reviewed below otherwise noncontributory. Social history: No reported history of drug or alcohol abuse. Family history: As per history of present illness and as reviewed below otherwise noncontributory. Physical exam: HEENT: Atraumatic, normocephalic, pupils reactive, negative for conjunctival pallor or scleral icterus, mucous membranes moist, throat clear, neck supple, nontender, trachea midline. Lungs: Slightly diminished throughout with loose nonproductive cough, breath sounds equal bilaterally, chest nontender. Heart: S1S2, regular, negative for clicks, rubs, or JVD. Abdomen: Soft, nondistended, nontender. Negative for masses or hepatosplenomegaly. Negative for costovertebral tenderness. Pelvis: Stable nontender. Genitourinary: Deferred. Rectal: Deferred. Extremities: Left lower extremity with erythema and some amount of edema with cellulitic-looking changes, negative for cords or calf pain. Neurovascular unremarkable. Neuro: Awake, alert, oriented. Cranial nerves II through XII unremarkable. Cerebellum unremarkable. Motor and sensory unremarkable throughout. Exam nonfocal. Patient indicating some amount of pain while ambulating to the bathroom. Venous Doppler of left lower extremity obtained results were negative. Diagnostics: [CBC, CMP, influenza AB, strep, BNP, venous Doppler of left lower extremity] Therapeutics: [] Impression: [#1 cellulitis #2 leg pain #3 methamphetamine abuse] Plan: [Outpatient antibiotics follow-up with PCP] Definitive disposition and diagnosis as appropriate pending reevaluation and review of above. Left Lower Leg Pain Score (Numeric/FACES): 9 - Related Data Allergies Allergy/AdvReac Type Severity Reaction Status Date / Time No Known Allergies Allergy Verified 06/07/17 10:49 Home Meds: Home Meds Lisinopril 30 mg PO DAILY 05/21/17 [History] Cephalexin [Keflex] 500 mg PO QID #40 capsule 06/07/17 [Rx] Venlafaxine HCl [Venlafaxine ER] 75 mg PO DAILY 06/07/17 [History] cloNIDine [Catapres] 0.1 mg PO DAILY 06/07/17 [History] Past Medical History - Past Health History Medical/Surgical History: Denies Medical/Surgical History HEENT History: Reports: None Cardiovascular History: Reports: Hypertension Respiratory History: Reports: COPD Gastrointestinal History: Reports: Diverticulosis Other Genitourinary History: kidney stones [employer]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 Musculoskeletal History: Reports: None Neurological History: Reports: None Psychiatric History: Reports: Addiction, Anxiety, Depression Endocrine/Metabolic History: Reports: None Hematologic History: Reports: None Dermatologic History: Reports: None - Infectious Disease History Infectious Disease History: Reports: Chicken Pox, Hepatitis C, Measles, Mumps - Past Surgical History HEENT Surgical History: Reports: None Cardiovascular Surgical History: Reports: None GI Surgical History: Reports: Appendectomy Female Surgical History: Reports: None Other Musculoskeletal Surgeries/Procedures:: rt shoulder surg Social & Family History - Family History Family Medical History: Noncontributory - Tobacco Use Smoking Status *Q: Former Smoker Years of Tobacco use: 35 Packs/Tins Daily: 1 Used Tobacco, but Quit: Yes Month Tobacco Last Used: march Second Hand Smoke Exposure: No - Caffeine Use Caffeine Use: Reports: Coffee, Energy Drinks, Soda, Tea Caffeine Use Comment: 5 cups avg per day - Alcohol Use Days Per Week of Alcohol Use: 7 Number of Drinks Per Day: 2 Total Drinks Per Week: 14 - Recreational Drug Use Recreational Drug Use: Yes Drug Use in Last 12 Months: Yes Recreational Drug Type: Reports: Methamphetamine Recreational Drug Use Frequency: Rarely Recreational Drug Last Use: 50 days ED ROS GENERAL - Review of Systems Review Of Systems: See Below (See history of present illness) ED EXAM, GENERAL - Physical Exam Exam: See Below (See history of present illness) Course - Vital Signs Last Recorded V/S: Last Vital Signs Temp 36.3 C 06/07/17 10:54 Pulse Resp 22 H 06/07/17 10:54 BP 175/107 H 12/28/17 10:54 Pulse Ox 96 06/07/17 10:54 - Orders/Labs/Meds Orders: Active Orders 24 hr Category Date Time Status EKG Documentation Completion [RC] STAT Care 06/07/17 11:06 Active Venous Doppler Lwr Ext Lt [US] Stat Exams 06/07/17 12:33 Taken CULTURE STREP A CONFIRMATION [] Stat Lab 06/07/17 12:35 Results STREP SCRN A RAPID W CULT CONF [] Stat Lab 06/07/17 12:35 Results Labs: Laboratory Tests 06/07/17 06/07/17 06/07/17 Range/Units 11:01 11:01 11:01 WBC 6.54 (4.0-11.0) K/uL RBC 4.02 L (4.30-5.90) M/uL Hgb 11.2 L (12.0-16.0) g/dL Hct 33.1 L (36.0-46.0) % MCV 82.3 (80.0-98.0) fL MCH 27.9 (27.0-32.0) pg MCHC 33.8 (31.0-37.0) g/dL RDW Std Deviation 40.7 (28.0-62.0) fl RDW Coeff of Jamil 13 (11.0-15.0) % Plt Count 183 (150-400) K/uL MPV 9.20 (7.40-12.00) fL Neut % (Auto) 51.3 (48.0-80.0) % Lymph % (Auto) 32.0 (16.0-40.0) % [place] % (Auto) 10.9 (0.0-15.0) % Eos % (Auto) 5.5 (0.0-7.0) % Baso % (Auto) 0.3 (0.0-1.5) % Neut # (Auto) 3.4 (1.4-5.7) K/uL Lymph # (Auto) 2.1 (0.6-2.4) K/uL [place] # (Auto) 0.7 (0.0-0.8) K/uL Eos # (Auto) 0.4 (0.0-0.7) K/uL Baso # (Auto) 0.0 (0.0-0.1) K/uL Nucleated RBC % 0.0 /100WBC Nucleated RBCs # 0 K/uL D-Dimer, Quantitative (0.0-0.52) mg/LFEU Sodium 140 (136-146) mmol/L Potassium 3.2 L (3.5-5.1) mmol/L Chloride 104 (98-110) mmol/L Carbon Dioxide 24 (21-31) mmol/L BUN 15 (6.0-23.0) mg/dL Creatinine 1.1 (0.6-1.5) mg/dL Est Cr Clr Drug Dosing 56.84 mL/min Estimated GFR (MDRD) 50.7 ml/min Glucose 92 (60-110) mg/dL Calcium 8.9 (8.8-10.8) mg/dL Total Bilirubin 0.5 (0.1-1.5) mg/dL AST 36 (5-40) IU/L ALT 27 (8-54) IU/L Alkaline Phosphatase 67 (40-150) Troponin I < 0.10 (0.0-0.29) NG/ML Total Protein 6.8 (6.0-8.0) g/dL Albumin 3.9 (3.4-4.8) g/dL Globulin 2.9 (2.0-3.5) g/dL Albumin/Globulin Ratio 1.3 (1.3-2.8) Urine Color Urine Appearance Urine pH (5.0-8.0) Ur Specific [place] (1.001-1.035) Urine Protein (NEGATIVE) mg/dL Urine Glucose (UA) (NEGATIVE) mg/dL Urine Ketones (NEGATIVE) mg/dL Urine Occult Blood (NEGATIVE) Urine Nitrite (NEGATIVE) Urine Bilirubin (NEGATIVE) Urine Urobilinogen (<2.0) EU/dL Ur Leukocyte Esterase (NEGATIVE) Urine RBC (0-2/HPF) Urine WBC (0-5/HPF) Ur Epithelial Cells (NONE-FEW) Urine Bacteria (NEGATIVE) Urine Opiates Screen (NEGATIVE) Ur Oxycodone Screen (NEGATIVE) Urine Methadone Screen (NEGATIVE) Ur Barbiturates Screen (NEGATIVE) Ur Phencyclidine Scrn (NEGATIVE) Ur Amphetamine Screen (NEGATIVE) U Methamphetamines Scrn (NEGATIVE) U Benzodiazepines Scrn (NEGATIVE) U Cocaine Metab Screen (NEGATIVE) U Marijuana (THC) Screen (NEGATIVE) 06/07/17 06/07/17 06/07/17 Range/Units 11:01 12:00 12:33 WBC (4.0-11.0) K/uL RBC (4.30-5.90) M/uL Hgb (12.0-16.0) g/dL Hct (36.0-46.0) % MCV (80.0-98.0) fL MCH (27.0-32.0) pg MCHC (31.0-37.0) g/dL RDW Std Deviation (28.0-62.0) fl RDW Coeff of Jamil (11.0-15.0) % Plt Count (150-400) K/uL MPV (7.40-12.00) fL Neut % (Auto) (48.0-80.0) % Lymph % (Auto) (16.0-40.0) % [place] % (Auto) (0.0-15.0) % Eos % (Auto) (0.0-7.0) % Baso % (Auto) (0.0-1.5) % Neut # (Auto) (1.4-5.7) K/uL Lymph # (Auto) (0.6-2.4) K/uL [place] # (Auto) (0.0-0.8) K/uL Eos # (Auto) (0.0-0.7) K/uL Baso # (Auto) (0.0-0.1) K/uL Nucleated RBC % /100WBC Nucleated RBCs # K/uL D-Dimer, Quantitative 0.83 H (0.0-0.52) mg/LFEU Sodium (136-146) mmol/L Potassium (3.5-5.1) mmol/L Chloride (98-110) mmol/L Carbon Dioxide (21-31) mmol/L BUN (6.0-23.0) mg/dL Creatinine (0.6-1.5) mg/dL Est Cr Clr Drug Dosing mL/min Estimated GFR (MDRD) ml/min Glucose (60-110) mg/dL Calcium (8.8-10.8) mg/dL Total Bilirubin (0.1-1.5) mg/dL AST (5-40) IU/L ALT (8-54) IU/L Alkaline Phosphatase (40-150) Troponin I (0.0-0.29) NG/ML Total Protein (6.0-8.0) g/dL Albumin (3.4-4.8) g/dL Globulin (2.0-3.5) g/dL Albumin/Globulin Ratio (1.3-2.8) Urine Color YELLOW Urine Appearance CLEAR Urine pH 7.5 (5.0-8.0) Ur Specific [place] 1.010 (1.001-1.035) Urine Protein NEGATIVE (NEGATIVE) mg/dL Urine Glucose (UA) NEGATIVE (NEGATIVE) mg/dL Urine Ketones NEGATIVE (NEGATIVE) mg/dL Urine Occult Blood NEGATIVE (NEGATIVE) Urine Nitrite NEGATIVE (NEGATIVE) Urine Bilirubin NEGATIVE (NEGATIVE) Urine Urobilinogen 0.2 (<2.0) EU/dL Ur Leukocyte Esterase TRACE (NEGATIVE) Urine RBC 0-1 (0-2/HPF) Urine WBC 0-1 (0-5/HPF) Ur Epithelial Cells RARE (NONE-FEW) Urine Bacteria RARE (NEGATIVE) Urine Opiates Screen NEGATIVE (NEGATIVE) Ur Oxycodone Screen NEGATIVE (NEGATIVE) Urine Methadone Screen NEGATIVE (NEGATIVE) Ur Barbiturates Screen NEGATIVE (NEGATIVE) Ur Phencyclidine Scrn NEGATIVE (NEGATIVE) Ur Amphetamine Screen NEGATIVE (NEGATIVE) U Methamphetamines Scrn POSITIVE (NEGATIVE) U Benzodiazepines Scrn NEGATIVE (NEGATIVE) U Cocaine Metab Screen NEGATIVE (NEGATIVE) U Marijuana (THC) Screen NEGATIVE (NEGATIVE) Departure - Departure Time of Disposition: 13:31 Disposition: Home, Self-Care 01 Condition: Good Clinical Impression: Drug abuse, episodic use Cellulitis Qualifiers: Site of cellulitis: extremity Site of cellulitis of extremity: lower extremity Laterality: left Qualified Code(s): L03.116 - Cellulitis of left lower limb - Discharge Information Prescriptions: Cephalexin [Keflex] 500 mg PO QID #40 capsule Forms: ED Department Discharge Additional Instructions: The following information is given to patients seen in the emergency department who are being discharged to home. This information is to outline your options for follow-up care. We provide all patients seen in our emergency department with a follow-up referral. The need for follow-up, as well as the timing and circumstances, are variable depending upon the specifics of your emergency department visit. If you don't have a primary care physician on staff, we will provide you with a referral. We always advise you to contact your personal physician following an emergency department visit to inform them of the circumstance of the visit and for follow-up with them and/or the need for any referrals to a consulting specialist. The emergency department will also refer you to a specialist when appropriate. This referral assures that you have the opportunity for follow-up care with a specialist. All of these measure are taken in an effort to provide you with optimal care, which includes your follow-up. Under all circumstances we always encourage you to contact your private physician who remains a resource for coordinating your care. When calling for follow-up care, please make the office aware that this follow-up is from your recent emergency room visit. If for any reason you are refused follow-up, please contact the [facility] Emergency Department at and asked to speak to the emergency department charge nurse. Take medication as directed Follow-up with PCP in 3-5 days Return to ED as needed as discussed - My Orders Last 24 Hours: My Active Orders 06/07/17 12:33 Venous Doppler Lwr Ext Lt [US] Stat 06/07/17 12:35 CULTURE STREP A CONFIRMATION [RM] Stat STREP SCRN A RAPID W CULT CONF [RM] Stat - Assessment/Plan Last 24 Hours: My Active Orders 06/07/17 12:33 Venous Doppler Lwr Ext Lt [US] Stat 06/07/17 12:35 CULTURE STREP A CONFIRMATION [RM] Stat STREP SCRN A RAPID W CULT CONF [RM] Stat
[2017-06-07 13:53] VITALS: BP 166/115
--- NOTE | 2017-06-07 17:15 | US ---
EXAM DATE: 06/07/17 PATIENT'S AGE: 61 Patient: BETTY VELEZ Facility: [place], [place] Site . Site : [id number] Study: US Extremity Venous LT [id number]/07/2017 1:26:03 PM Ordering Physician: Doctor Dubon Final Report: INDICATION: Left leg pain and swelling. TECHNIQUE: Ultrasound venous duplex lower left extremity. Compression venous exam was performed using borden-scale, color Doppler, and spectral Doppler analysis. COMPARISON: None. FINDINGS: Sonographic imaging demonstrates the left common femoral, deep femoral, superficial femoral, popliteal, posterior tibial veins to be fully compressible with normal color Doppler blood flow. IMPRESSION: 1. No evidence of left lower extremity DVT. Dictated by Leonardo Rodriguez MD @ 06/07/2017 1:52:50 PM Dictated by: Leonardo Rodriguez MD @ 06/07/2017 13:52:56 (Electronic Signature) Report Signed by Proxy. [facility]ITALLenore
== END 2017-06-07 14:02 | disposition home or self-care (01) ==
LOC: MW.ED 10:43
DX: L03.116 Cellulitis of left lower limb (principal); F15.10 Other stimulant abuse, uncomplicated; I10 Essential (primary) hypertension; F32.9 Major depressive disorder, single episode, unspecified; Z87.891 Personal history of nicotine dependence; Z79.899 Other long term (current) drug therapy
CPT/HCPCS: 36415; 80053; 80305; 81001; 84484; 85025; 85379; 87081; 87804; 87880; 93005; 93971-26-LT; 93971-LT; 99284; 99284-25

== ENCOUNTER 2018-09-22 17:17 | Emergency (ER) | payer MEDICAID, OTHER ==
[2018-09-22] MEDS ORDERED: Albuterol/Ipratropium 3.0-0.5 MG/3 ML Neb Soln NEB ONE (17:59)
[2018-09-22] MEDS ORDERED: methylPREDNISolone Sodium Succinate 125 MG/2 ML SDV IVPUSH ONE (18:00)
[2018-09-22] MEDS ORDERED: Sodium Chloride 0.9% 2.5 ML Syringe FLUSH PRN (18:01)
[2018-09-22] MEDS ORDERED: Sodium Chloride 0.9% 10 ML Syringe FLUSH PRN (18:01)
--- NOTE | 2018-09-22 18:05 | EDM.PDOC ---
ED HPI GENERAL MEDICAL PROBLEM - General Chief Complaint: Respiratory Problem Stated Complaint: SOB Time Seen by Provider: 09/22/18 17:54 Source of Information: Reports: Patient History Limitations: Reports: No Limitations - History of Present Illness INITIAL COMMENTS - FREE TEXT/NARRATIVE: HISTORY AND PHYSICAL: History of present illness: Patient is a 63-year-old female who presents to the ED today with concern for shortness of breath. Patient states that she feels as if she is unsure if she inhaled food 2 days ago as she has been feeling more short of breath. Patient states she does have a history of underlying COPD and thinks that this may be related to her symptoms. Patient states she also recently ran out of her Symbicort inhaler and does not have a refill and has an appointment in a few weeks. Patient states she does have an increase in sputum production over the past couple days as well. Patient denies fever, chills, chest pain, or cough. Denies headache, neck stiff ness, change in vision, syncope, or near syncope. Denies nausea, vomiting, abdominal pain, diarrhea, constipation, or dysuria. Has not noted any blood in urine or stool. Patient has been eating and drinking appropriately. Patient also has a history of hypertension. Review of systems: As per history of present illness and below otherwise all systems reviewed and negative. Past medical history: As per history of present illness and as reviewed below otherwise noncontributory. Surgical history: As per history of present illness and as reviewed below otherwise noncontributory. Social history: See social history for further information Family history: As per history of present illness and as reviewed below otherwise noncontributory. Physical exam: General: Patient is alert, oriented, and in no acute distress. Patient sitting comfortably on exam table. Patient speaking in full sentences but does appear chronically ill. HEENT: Atraumatic, normocephalic, pupils equal and reactive bilaterally, negative for conjunctival pallor or scleral icterus, mucous membranes moist, TMs normal bilaterally, throat clear, neck supple, nontender, trachea midline. No drooling or trismus noted. No meningeal signs. No hot potato voice noted. Lungs: Diffuse wheezing to auscultation of bilateral lung bases, breath sounds equal bilaterally, chest nontender. No stridor or retractions. Patient is breathing comfortably on exam. Heart: Heart sounds limited to 2 wheezing of the lungs. S1S2, regular rate and rhythm without overt murmur Abdomen: Soft, nondistended, nontender. Negative for masses or hepatosplenomegaly. Negative for costovertebral tenderness. Pelvis: Stable nontender. Genitourinary: Deferred. Rectal: Deferred. Skin: Intact, warm, dry. No lesions or rashes noted. Extremities: Atraumatic, negative for cords or calf pain. Neurovascular unremarkable. Neuro: Awake, alert, oriented. Cranial nerves II through XII unremarkable. Cerebellum unremarkable. Motor and sensory unremarkable throughout. Exam nonfocal. Notes: Dr. Villafana was verbally involved in patients care. Patient has recently run out of her Symbicort inhaler and has an appointment scheduled with her primary care provider. Patient does have nebulizers at home but not albuterol inhaler. Patient expresses resolution of symptoms following DuoNeb and Solu-Medrol. Patient states she does have Duonebs at home. I will give patient 1 refill of Symbicort and albuterol inhaler as well as treatment for her COPD exacerbation. Discussed the need to follow up with her primary care provider for further care and management. Discussed the importance for follow-up with a primary care provider. Voices understanding and is agreeable to plan of care. Denies any further questions or concerns at this time. Diagnostics: CBC, CMP, UA, chest x-ray, EKG, troponin, Therapeutics: DuoNeb, Solu-Medrol, saline lock Prescription: Prednisone, Azithromycin, Symbicort inhaler, Proair inhaler Impression: COPD Exacerbation Plan: 1. Take medications as prescribed. 2. Follow-up with primary care provider as discussed. 3. Return to the ED as needed and as discussed. Definitive disposition and diagnosis as appropriate pending reevaluation and review of above. chest Pain Score (Numeric/FACES): 7 - Related Data Allergies Allergy/AdvReac Type Severity Reaction Status Date / Time No Known Allergies Allergy Verified 09/22/18 17:36 Home Meds: Home Meds Albuterol [Proventil HFA] 1 puff INH QID PRN 09/22/18 [History] Albuterol/Ipratropium [DuoNeb 3.0-0.5 MG/3 ML] 3 ml .XX Q8HR PRN 09/22/18 [ History] Budesonide/Formoterol Fumarate [Symbicort 80-4.5 Mcg Inhaler] 1 puff IH DAILY [History] Citalopram [Citalopram HBr] 20 mg PO DAILY 09/22/18 [History] Prazosin HCl [Prazosin] 2 mg PO DAILY 09/22/18 [History] Simvastatin [Zocor] 10 mg PO BEDTIME 09/22/18 [History] Venlafaxine HCl [Venlafaxine ER] 1 tab PO DAILY 09/22/18 [History] cloNIDine [Catapres] 0.1 mg PO DAILY 09/22/18 [History] Past Medical History - Past Health History Medical/Surgical History: Denies Medical/Surgical History HEENT History: Reports: None Cardiovascular History: Reports: Hypertension Respiratory History: Reports: COPD Gastrointestinal History: Reports: Diverticulosis Other Genitourinary History: kidney stones 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 Musculoskeletal History: Reports: None Neurological History: Reports: None Psychiatric History: Reports: Addiction, Anxiety, Depression Endocrine/Metabolic History: Reports: None Hematologic History: Reports: None Dermatologic History: Reports: None - Infectious Disease History Infectious Disease History: Reports: Hepatitis A, Hepatitis B, Hepatitis C Other Infectious Disease History: unsure of which kind of hepatitis - Past Surgical History HEENT Surgical History: Reports: None Cardiovascular Surgical History: Reports: None GI Surgical History: Reports: Appendectomy Female Surgical History: Reports: None Other Musculoskeletal Surgeries/Procedures:: rt shoulder surg Social & Family History - Family History Family Medical History: Noncontributory - Tobacco Use Smoking Status *Q: Light Tobacco Smoker Years of Tobacco use: 50 Packs/Tins Daily: 0.1 Used Tobacco, but Quit: No - Caffeine Use Caffeine Use: Reports: Coffee, Energy Drinks, Soda, Tea Caffeine Use Comment: 5 cups avg per day - Recreational Drug Use Recreational Drug Use: No ED ROS GENERAL - Review of Systems Review Of Systems: ROS reveals no pertinent complaints other than HPI. ED EXAM, GENERAL - Physical Exam Exam: See Below (See dictation) Course - Vital Signs Last Recorded V/S: Last Vital Signs Temp 36.3 C 09/22/18 19:24 Pulse 78 09/22/18 19:24 Resp 19 09/22/18 19:24 BP 107/100 H 09/22/18 19:24 Pulse Ox 93 L 09/22/18 19:24 - Orders/Labs/Meds Orders: Active Orders 24 hr Category Date Time Status EKG Documentation Completion [RC] STAT Care 09/22/18 18:01 Active RT Aerosol Therapy [RC] ASDIRECTED Care 09/22/18 18:00 Active Sodium Chloride 0.9% [Saline Flush] Med 09/22/18 18:01 Active 10 ml FLUSH ASDIRECTED PRN Sodium Chloride 0.9% [Saline Flush] Med 09/22/18 18:01 Active 2.5 ml FLUSH ASDIRECTED PRN Saline Lock Insert [OM.PC] Stat Oth 09/22/18 18:01 Ordered Medication Orders Sodium Chloride (Saline Flush) 10 ml FLUSH ASDIRECTED PRN PRN Reason: Keep Vein Open Sodium Chloride (Saline Flush) 2.5 ml FLUSH ASDIRECTED PRN PRN Reason: Keep Vein Open Labs: Laboratory Tests 09/22/18 09/22/18 09/22/18 Range/Units 18:10 18:10 18:30 WBC 8.05 (4.0-11.0) K/uL RBC 4.52 (4.30-5.90) M/uL Hgb 13.2 (12.0-16.0) g/dL Hct 38.5 (36.0-46.0) % MCV 85.2 (80.0-98.0) fL MCH 29.2 (27.0-32.0) pg MCHC 34.3 (31.0-37.0) g/dL RDW Std Deviation 42.2 (28.0-62.0) fl RDW Coeff of Jamil 14 (11.0-15.0) % Plt Count 258 (150-400) K/uL MPV 9.10 (7.40-12.00) fL Neut % (Auto) 54.8 (48.0-80.0) % Lymph % (Auto) 34.9 (16.0-40.0) % [place] % (Auto) 5.6 (0.0-15.0) % Eos % (Auto) 4.5 (0.0-7.0) % Baso % (Auto) 0.2 (0.0-1.5) % Neut # (Auto) 4.4 (1.4-5.7) K/uL Lymph # (Auto) 2.8 H (0.6-2.4) K/uL [place] # (Auto) 0.5 (0.0-0.8) K/uL Eos # (Auto) 0.4 (0.0-0.7) K/uL Baso # (Auto) 0.0 (0.0-0.1) K/uL Nucleated RBC % 0.0 /100WBC Nucleated RBCs # 0 K/uL Sodium 139 (136-145) mmol/L Potassium 4.4 (3.5-5.1) mmol/L Chloride 103 (98-107) mmol/L Carbon Dioxide 26.9 (21.0-32.0) mmol/L BUN 17 (7.0-18.0) mg/dL Creatinine 1.1 H (0.6-1.0) mg/dL Est Cr Clr Drug Dosing 53.16 mL/min Estimated GFR (MDRD) 50.3 ml/min Glucose 95 (74-106) mg/dL Calcium 9.5 (8.5-10.1) mg/dL Total Bilirubin 0.3 (0.2-1.0) mg/dL AST 18 (15-37) IU/L ALT 16 (14-63) IU/L Alkaline Phosphatase 96 (46-116) U/L Troponin I < 0.050 (0.000-0.056) ng/mL Total Protein 8.2 (6.4-8.2) g/dL Albumin 3.9 (3.4-5.0) g/dL Globulin 4.3 H (2.6-4.0) g/dL Albumin/Globulin Ratio 0.9 (0.9-1.6) Urine Color YELLOW Urine Appearance CLEAR Urine pH 5.5 (5.0-8.0) Ur Specific [place] 1.015 (1.001-1.035) Urine Protein NEGATIVE (NEGATIVE) mg/dL Urine Glucose (UA) NEGATIVE (NEGATIVE) mg/dL Urine Ketones NEGATIVE (NEGATIVE) mg/dL Urine Occult Blood NEGATIVE (NEGATIVE) Urine Nitrite NEGATIVE (NEGATIVE) Urine Bilirubin NEGATIVE (NEGATIVE) Urine Urobilinogen 0.2 (<2.0) EU/dL Ur Leukocyte Esterase NEGATIVE (NEGATIVE) Meds: Medications Generic Name Dose Route Start Last Admin Trade Name Freq PRN Reason Stop Dose Admin Sodium Chloride 10 ml 04/14/19 18:01 Saline Flush FLUSH ASDIRECTED PRN Keep Vein Open Sodium Chloride 2.5 ml 09/22/18 18:01 Saline Flush FLUSH ASDIRECTED PRN Keep Vein Open Discontinued Medications Generic Name Dose Route Start Last Admin Trade Name Freq PRN Reason Stop Dose Admin Albuterol/Ipratropium 3 ml 09/22/18 17:59 09/22/18 18:15 Duoneb 3.0-0.5 Mg/3 Ml NEB 09/22/18 18:00 3 ml ONETIME ONE Administration Methylprednisolone Sodium Succinate 125 mg 09/22/18 18:00 09/22/18 18:15 Solu-Medrol IVPUSH 09/22/18 18:01 125 mg ONETIME ONE Administration Departure - Departure Time of Disposition: 19:51 Disposition: Home, Self-Care 01 Clinical Impression: COPD exacerbation - Discharge Information Instructions: Chronic Obstructive Pulmonary Disease, [id number] Referrals: PCP,None [Primary Care Provider] - Forms: ED Department Discharge Additional Instructions: The following information is given to patients seen in the emergency department who are being discharged to home. This information is to outline your options for follow-up care. We provide all patients seen in our emergency department with a follow-up referral. The need for follow-up, as well as the timing and circumstances, are variable depending upon the specifics of your emergency department visit. If you don't have a primary care physician on staff, we will provide you with a referral. We always advise you to contact your personal physician following an emergency department visit to inform them of the circumstance of the visit and for follow-up with them and/or the need for any referrals to a consulting specialist. The emergency department will also refer you to a specialist when appropriate. This referral assures that you have the opportunity for follow-up care with a specialist. All of these measure are taken in an effort to provide you with optimal care, which includes your follow-up. Under all circumstances we always encourage you to contact your private physician who remains a resource for coordinating your care. When calling for follow-up care, please make the office aware that this follow-up is from your recent emergency room visit. If for any reason you are refused follow-up, please contact the [facility] Emergency Department at and asked to speak to the emergency department charge nurse. [facility] [address] [place] [address] [facility] [address] [place] [address] 1. Take medications as prescribed. You can alternate ibuprofen and Tylenol as directed for pain and discomfort. 2. Follow up with her primary care provider as discussed. 3. Return to the ED as needed and as discussed. - My Orders Last 24 Hours: My Active Orders 09/22/18 18:00 RT Aerosol Therapy [RC] ASDIRECTED 09/22/18 18:01 EKG Documentation Completion [RC] STAT Sodium Chloride 0.9% [Saline Flush] 10 ml FLUSH ASDIRECTED PRN Sodium Chloride 0.9% [Saline Flush] 2.5 ml FLUSH ASDIRECTED PRN Saline Lock Insert [OM.PC] Stat - Assessment/Plan Last 24 Hours: My Active Orders 09/22/18 18:00 RT Aerosol Therapy [RC] ASDIRECTED 09/22/18 18:01 EKG Documentation Completion [RC] STAT Sodium Chloride 0.9% [Saline Flush] 10 ml FLUSH ASDIRECTED PRN Sodium Chloride 0.9% [Saline Flush] 2.5 ml FLUSH ASDIRECTED PRN Saline Lock Insert [OM.PC] Stat
[2018-09-22 18:48] LABS: CHLORIDE,CL 103 mmol/L (98-107); SODIUM,NA 139 mmol/L (136-145)
--- NOTE | 2018-09-22 19:33 | CR ---
INDICATION: pain/sob TECHNIQUE: Chest 1 view. COMPARISON: None. FINDINGS: Cardiovascular and mediastinum: Heart size and vasculature are normal in caliber and appearance. Mediastinum is within normal limits. Lungs and pleural space: Lungs are clear. No sign of infiltrate or mass. No sign of pleural effusion. No pneumothorax. Bones and soft tissues: No significant findings. IMPRESSION: Unremarkable chest. Dictated by: Scout Campbell MD @ 09/22/2018 19:31:30 (Electronically Signed)
[2018-09-22 20:08] VITALS: BP 165/100
== END 2018-09-22 20:00 | disposition home or self-care (01) ==
LOC: MW.ED 17:17
DX: J44.1 Chronic obstructive pulmonary disease with (acute) exacerbation (principal); I10 Essential (primary) hypertension; J44.9 Chronic obstructive pulmonary disease, unspecified; F41.9 Anxiety disorder, unspecified; F32.9 Major depressive disorder, single episode, unspecified; F17.210 Nicotine dependence, cigarettes, uncomplicated; Z79.899 Other long term (current) drug therapy
CPT/HCPCS: 71045; 80053; 81003; 84484; 85025; 93005; 94640; 96374; 99285; J2930; 99284; J7620-GY

== ENCOUNTER 2018-09-30 20:47 | Inpatient (IN) | payer MEDICAID ==
[2018-09-30] MEDS ORDERED: Albuterol 0.083% 2.5 MG/3 ML Neb Soln NEB ONE (20:50)
[2018-09-30] MEDS ORDERED: methylPREDNISolone Sodium Succinate 125 MG/2 ML SDV IVPUSH ONE (20:50)
--- NOTE | 2018-09-30 20:53 | EDM.PDOC ---
ED HPI GENERAL MEDICAL PROBLEM - General Chief Complaint: Respiratory Problem Stated Complaint: BREATHING PROBLEMS Time Seen by Provider: 09/30/18 20:52 Source of Information: Reports: Patient - History of Present Illness INITIAL COMMENTS - FREE TEXT/NARRATIVE: HISTORY AND PHYSICAL: History of present illness: [A shunt arrives via EMS with shortness of breath or wheeze ] Review of systems: As per history of present illness and below otherwise all systems reviewed and negative. Past medical history: As per history of present illness and as reviewed below otherwise noncontributory. Surgical history: As per history of present illness and as reviewed below otherwise noncontributory. Social history: No reported history of drug or alcohol abuse. Family history: As per history of present illness and as reviewed below otherwise noncontributory. Physical exam: HEENT: Atraumatic, normocephalic, pupils reactive, negative for conjunctival pallor or scleral icterus, mucous membranes moist, throat clear, neck supple, nontender, trachea midline. Lungs: Clear to auscultation, breath sounds equal bilaterally, chest nontender. Heart: S1S2, regular, negative for clicks, rubs, or JVD. Abdomen: Soft, nondistended, nontender. Negative for masses or hepatosplenomegaly. Negative for costovertebral tenderness. Pelvis: Stable nontender. Genitourinary: Deferred. Rectal: Deferred. Extremities: Atraumatic, negative for cords or calf pain. Neurovascular unremarkable. Neuro: Awake, alert, oriented. Cranial nerves II through XII unremarkable. Cerebellum unremarkable. Motor and sensory unremarkable throughout. Exam nonfocal. Diagnostics: [CBC CMP UA troponin d-dimer CPK G Chest 1 view ABG] Therapeutics: [ normal saline Solu-Medrol Albuterol neb Other: 750 mg IV ] Impression: [ COPD ] Infiltrate on chest x-ray Chronic history of baseline Definitive disposition and diagnosis as appropriate pending reevaluation and review of above. 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 - Related Data Allergies Allergy/AdvReac Type Severity Reaction Status Date / Time No Known Allergies Allergy Verified 09/22/18 17:36 Home Meds: Home Meds Albuterol [Proventil HFA] 1 puff INH QID PRN 09/22/18 [History] Albuterol/Ipratropium [DuoNeb 3.0-0.5 MG/3 ML] 3 ml .XX Q8HR PRN 09/22/18 [ History] Budesonide/Formoterol Fumarate [Symbicort 80-4.5 Mcg Inhaler] 1 puff IH DAILY [History] Prazosin HCl [Prazosin] 2 mg PO DAILY 09/22/18 [History] Simvastatin [Zocor] 10 mg PO BEDTIME 09/22/18 [History] Venlafaxine HCl [Venlafaxine ER] 1 tab PO DAILY 09/22/18 [History] cloNIDine [Catapres] 0.1 mg PO DAILY 09/22/18 [History] Escitalopram [Lexapro] 10 mg PO DAILY 09/30/18 [History] Verapamil [Calan SR] 180 mg PO DAILY 09/30/18 [History] Past Medical History - Past Health History Medical/Surgical History: Denies Medical/Surgical History HEENT History: Reports: None Cardiovascular History: Reports: Hypertension Respiratory History: Reports: COPD Gastrointestinal History: Reports: Diverticulosis Other Genitourinary History: kidney stones 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 Musculoskeletal History: Reports: None Neurological History: Reports: None Psychiatric History: Reports: Addiction, Anxiety, Depression Endocrine/Metabolic History: Reports: None Hematologic History: Reports: None Dermatologic History: Reports: None - Infectious Disease History Infectious Disease History: Reports: Hepatitis A, Hepatitis B, Hepatitis C Other Infectious Disease History: unsure of which kind of hepatitis - Past Surgical History HEENT Surgical History: Reports: None Cardiovascular Surgical History: Reports: None GI Surgical History: Reports: Appendectomy Female Surgical History: Reports: None Other Musculoskeletal Surgeries/Procedures:: rt shoulder surg Social & Family History - Family History Family Medical History: Noncontributory - Caffeine Use Caffeine Use: Reports: Coffee, Energy Drinks, Soda, Tea Caffeine Use Comment: 5 cups avg per day ED ROS GENERAL - Review of Systems Review Of Systems: See Below ED EXAM, GENERAL - Physical Exam Exam: See Below Course - Vital Signs Last Recorded V/S: Last Vital Signs Temp 97.1 F 09/30/18 20:49 Pulse 96 09/30/18 21:14 Resp 26 H 09/30/18 21:44 BP 170/111 H 09/30/18 21:14 Pulse Ox 94 L 09/30/18 21:44 - Orders/Labs/Meds Orders: Active Orders 24 hr Category Date Time Status EKG Documentation Completion [RC] STAT Care 09/30/18 20:51 Active Oxygen Therapy Adult [Oxygen Therapy, ED] [RC] Care 09/30/18 21:06 Active ASDIRECTED RT Aerosol Therapy [RC] ASDIRECTED Care 09/30/18 20:51 Active RT Aerosol Therapy [RC] ASDIRECTED Care 09/30/18 20:58 Active UA RFX RYLEE AND CULT IF INDIC [URIN] Stat Lab 09/30/18 20:51 Ordered Levofloxacin/Dextrose 5%-Water [Levaquin in D5W 750 MG/ Med 09/30/18 22:08 Active 150 ML] 750 mg Premix Bag 1 bag IV ONETIME Sodium Chloride 0.9% [Normal Saline] 1,000 ml Med 09/30/18 21:00 Active IV STAT Medication Orders Sodium Chloride (Normal Saline) 1,000 mls @ 125 mls/hr IV STAT YASIR Last Admin: 09/30/18 20:58 Dose: 125 mls/hr Levofloxacin/Dextrose 750 mg/ (Premix) 150 mls @ 100 mls/hr IV ONETIME ONE Stop: 09/30/18 23:37 Labs: Laboratory Tests 09/30/18 09/30/18 09/30/18 Range/Units 20:50 20:50 20:50 WBC 20.01 H (4.0-11.0) K/uL RBC 5.00 (4.30-5.90) M/uL Hgb 14.4 (12.0-16.0) g/dL Hct 44.2 (36.0-46.0) % MCV 88.4 (80.0-98.0) fL MCH 28.8 (27.0-32.0) pg MCHC 32.6 (31.0-37.0) g/dL RDW Std Deviation 44.6 (28.0-62.0) fl RDW Coeff of Jamil 14 (11.0-15.0) % Plt Count 272 (150-400) K/uL MPV 9.60 (7.40-12.00) fL Add Manual Diff YES Neutrophils % (Manual) 76 (48.0-80.0) % Band Neutrophils % 6 % Lymphocytes % (Manual) 12 L (16.0-40.0) % Monocytes % (Manual) 3 (0.0-15.0) % Eosinophils % (Manual) 2 (0.0-7.0) % Myelocytes % 1 % Nucleated RBC % 0.0 /100WBC Absolute Seg Neuts 15.2 H (1.4-5.7) Band Neutrophils # 1.2 Lymphocytes # (Manual) 2.4 (0.6-2.4) Monocytes # (Manual) 0.6 (0.0-0.8) Eosinophils # (Manual) 0.4 (0.0-0.7) Absolute Myelocytes 0.2 Nucleated RBCs # 0 K/uL INR 0.98 D-Dimer, Quantitative 0.26 (0.0-0.50) mg/L FEU ABG pH (7.35-7.45) ABG pCO2 (35-45) mmHG ABG pO2 (75-100) mmHG ABG HCO3 (22-26) mEq/L ABG Total CO2 ABG Base Excess (-2.0-2.0) Sodium (136-145) mmol/L Potassium (3.5-5.1) mmol/L Chloride (98-107) mmol/L Carbon Dioxide (21.0-32.0) mmol/L BUN (7.0-18.0) mg/dL Creatinine (0.6-1.0) mg/dL Est Cr Clr Drug Dosing mL/min Estimated GFR (MDRD) ml/min Glucose (74-106) mg/dL Calcium (8.5-10.1) mg/dL Total Bilirubin (0.2-1.0) mg/dL AST (15-37) IU/L ALT (14-63) IU/L Alkaline Phosphatase (46-116) U/L Creatine Kinase (26-308) U/L Troponin I (0.000-0.056) ng/mL Total Protein (6.4-8.2) g/dL Albumin (3.4-5.0) g/dL Globulin (2.6-4.0) g/dL Albumin/Globulin Ratio (0.9-1.6) 09/30/18 09/30/18 Range/Units 20:50 21:15 WBC (4.0-11.0) K/uL RBC (4.30-5.90) M/uL Hgb (12.0-16.0) g/dL Hct (36.0-46.0) % MCV (80.0-98.0) fL MCH (27.0-32.0) pg MCHC (31.0-37.0) g/dL RDW Std Deviation (28.0-62.0) fl RDW Coeff of Jamil (11.0-15.0) % Plt Count (150-400) K/uL MPV (7.40-12.00) fL Add Manual Diff Neutrophils % (Manual) (48.0-80.0) % Band Neutrophils % % Lymphocytes % (Manual) (16.0-40.0) % Monocytes % (Manual) (0.0-15.0) % Eosinophils % (Manual) (0.0-7.0) % Myelocytes % % Nucleated RBC % /100WBC Absolute Seg Neuts (1.4-5.7) Band Neutrophils # Lymphocytes # (Manual) (0.6-2.4) Monocytes # (Manual) (0.0-0.8) Eosinophils # (Manual) (0.0-0.7) Absolute Myelocytes Nucleated RBCs # K/uL INR D-Dimer, Quantitative (0.0-0.50) mg/L FEU ABG pH 7.447 (7.35-7.45) ABG pCO2 36 (35-45) mmHG ABG pO2 65 L (75-100) mmHG ABG HCO3 25 (22-26) mEq/L ABG Total CO2 22.1 ABG Base Excess 1.2 (-2.0-2.0) Sodium 135 L (136-145) mmol/L Potassium 4.2 (3.5-5.1) mmol/L Chloride 101 (98-107) mmol/L Carbon Dioxide 26.6 (21.0-32.0) mmol/L BUN 26 H (7.0-18.0) mg/dL Creatinine 1.2 H (0.6-1.0) mg/dL Est Cr Clr Drug Dosing 48.73 mL/min Estimated GFR (MDRD) 45.5 ml/min Glucose 100 (74-106) mg/dL Calcium 9.2 (8.5-10.1) mg/dL Total Bilirubin 0.6 (0.2-1.0) mg/dL AST 17 (15-37) IU/L ALT 28 (14-63) IU/L Alkaline Phosphatase 105 (46-116) U/L Creatine Kinase 65 (26-308) U/L Troponin I < 0.050 (0.000-0.056) ng/mL Total Protein 8.2 (6.4-8.2) g/dL Albumin 3.9 (3.4-5.0) g/dL Globulin 4.3 H (2.6-4.0) g/dL Albumin/Globulin Ratio 0.9 (0.9-1.6) Meds: Medications Generic Name Dose Route Start Last Admin Trade Name Freq PRN Reason Stop Dose Admin Sodium Chloride 1,000 mls @ 125 mls/hr 09/30/18 21:00 09/30/18 20:58 Normal Saline IV 125 mls/hr STAT YASIR Administration Levofloxacin/Dextrose 750 mg/ 150 mls @ 100 mls/hr 09/30/18 22:08 Premix IV 09/30/18 23:37 ONETIME ONE Discontinued Medications Generic Name Dose Route Start Last Admin Trade Name Freq PRN Reason Stop Dose Admin Albuterol 2.5 mg 09/30/18 20:50 09/30/18 21:07 Proventil Neb Soln NEB 09/30/18 20:51 2.5 mg ONETIME ONE Administration Albuterol/Ipratropium 3 ml 09/30/18 20:58 09/30/18 20:50 Duoneb 3.0-0.5 Mg/3 Ml NEB 09/30/18 20:59 3 ml ONETIME ONE Administration Piperacillin Sod/Tazobactam 50 mls @ 100 mls/hr 09/30/18 21:58 09/30/18 22:05 Sod 3.375 gm/ Sodium Chloride IV 09/30/18 22:27 100 mls/hr ONETIME ONE Administration Methylprednisolone Sodium Succinate 125 mg 09/30/18 20:50 09/30/18 20:58 Solu-Medrol IVPUSH 09/30/18 20:51 125 mg ONETIME ONE Administration Departure - Departure Time of Disposition: 22:11 Disposition: Admitted As Inpatient 67 Condition: Fair Clinical Impression: Infiltrate of lung present on chest x-ray COPD (chronic obstructive pulmonary disease) Qualifiers: COPD type: COPD with acute exacerbation Qualified Code(s): J44.1 - Chronic obstructive pulmonary disease with (acute) exacerbation - Discharge Information Forms: ED Department Discharge - My Orders Last 24 Hours: My Active Orders 09/30/18 20:51 EKG Documentation Completion [RC] STAT RT Aerosol Therapy [RC] ASDIRECTED UA RFX RYLEE AND CULT IF INDIC [URIN] Stat 09/30/18 20:58 RT Aerosol Therapy [RC] ASDIRECTED 09/30/18 21:00 Sodium Chloride 0.9% [Normal Saline] 1,000 ml IV STAT 09/30/18 21:06 Oxygen Therapy Adult [Oxygen Therapy, ED] [RC] ASDIRECTED 09/30/18 22:08 Levofloxacin/Dextrose 5%-Water [Levaquin in D5W 750 MG/150 ML] 750 mg Premix Bag 1 bag IV ONETIME - Assessment/Plan Last 24 Hours: My Active Orders 09/30/18 20:51 EKG Documentation Completion [RC] STAT RT Aerosol Therapy [RC] ASDIRECTED UA RFX RYLEE AND CULT IF INDIC [URIN] Stat 09/30/18 20:58 RT Aerosol Therapy [RC] ASDIRECTED 09/30/18 21:00 Sodium Chloride 0.9% [Normal Saline] 1,000 ml IV STAT 09/30/18 21:06 Oxygen Therapy Adult [Oxygen Therapy, ED] [RC] ASDIRECTED 09/30/18 22:08 Levofloxacin/Dextrose 5%-Water [Levaquin in D5W 750 MG/150 ML] 750 mg Premix Bag 1 bag IV ONETIME
[2018-09-30] MEDS: Sodium Chloride 0.9% 1,000 ML IV SCH (20:58)
[2018-09-30] MEDS ORDERED: Albuterol/Ipratropium 3.0-0.5 MG/3 ML Neb Soln NEB ONE (20:58)
[2018-09-30 21:27] LABS: CHLORIDE,CL 101 mmol/L (98-107); SODIUM,NA 135 mmol/L (136-145)
--- NOTE | 2018-09-30 21:45 | CR ---
Indication: COPD, shortness of breath Technique: Chest 1 view Comparison: None Findings: Cardiovascular and mediastinum: Heart size and vasculature are normal in caliber and appearance. Mediastinum is within normal limits. Lungs and pleural space: Mild lung hyperexpansion. Lungs are clear. No sign of infiltrate or mass. No sign of pleural effusion. No pneumothorax. Bones and soft tissues: No significant findings. Impression: : Mild lung hyperexpansion. No focal infiltrate, effusion, or pneumothorax. Dictated by Luz Elena Arriola MD @ Sep 30 2018 9:42PM Signed by Dr. Luz Elena Arriola @ Sep 30 2018 9:44PM
[2018-09-30] MEDS ORDERED: Piperacillin/Tazobactam 3.375 GM in Sodium Chloride 0.9% 50 ML IV ONE ×2 (21:58→22:17)
[2018-09-30] MEDS ORDERED: Levofloxacin/Dextrose 5%-Water 750 MG in Premix Bag 1 BAG IV ONE (22:08)
--- NOTE | 2018-09-30 23:33 | PCM.HP ---
H&P History of Present Illness - General Date of Service: 09/30/18 Admit Problem/Dx: Admission Diagnosis/Problem Admission Diagnosis/Problem COPD with acute lower respiratory infection - History of Present Illness Initial Comments - Free Text/Narative: 63 yo female with pmh of COPD who presents with shortness of breath for two weeks. She reports this started after something got stuck in her chest after swallowing food that inflamed her COPD. Since then she is having difficuly walking to the bathroom due to her shortness of breath. She reports chest congestion, and sweats. She has been using her nebulizer frequently. She has a productive cough that is tinged yellow. - Related Data Allergies/Adverse Reactions: Allergies Allergy/AdvReac Type Severity Reaction Status Date / Time No Known Allergies Allergy Verified 09/22/18 17:36 Home Medications: Home Meds Albuterol [Proventil HFA] 1 puff INH QID PRN 09/22/18 [History] Albuterol/Ipratropium [DuoNeb 3.0-0.5 MG/3 ML] 3 ml .XX Q8HR PRN 09/22/18 [ History] Budesonide/Formoterol Fumarate [Symbicort 80-4.5 Mcg Inhaler] 1 puff IH DAILY [History] Prazosin HCl [Prazosin] 2 mg PO DAILY 09/22/18 [History] Simvastatin [Zocor] 10 mg PO BEDTIME 09/22/18 [History] Venlafaxine HCl [Venlafaxine ER] 1 tab PO DAILY 09/22/18 [History] cloNIDine [Catapres] 0.1 mg PO DAILY 09/22/18 [History] Escitalopram [Lexapro] 10 mg PO DAILY 09/30/18 [History] Verapamil [Calan SR] 180 mg PO DAILY 09/30/18 [History] Past Medical History - Past Health History Medical/Surgical History: Denies Medical/Surgical History HEENT History: Reports: None Cardiovascular History: Reports: Hypertension Respiratory History: Reports: COPD Gastrointestinal History: Reports: Diverticulosis Other Genitourinary History: kidney stones [employer] History: Reports: None Musculoskeletal History: Reports: None Neurological History: Reports: None Psychiatric History: Reports: Addiction, Anxiety, Depression Endocrine/Metabolic History: Reports: None Hematologic History: Reports: None Dermatologic History: Reports: None - Infectious Disease History Infectious Disease History: Reports: Hepatitis A, Hepatitis B, Hepatitis C Other Infectious Disease History: unsure of which kind of hepatitis - Past Surgical History HEENT Surgical History: Reports: None Cardiovascular Surgical History: Reports: None GI Surgical History: Reports: Appendectomy Female Surgical History: Reports: None Other Musculoskeletal Surgeries/Procedures:: rt shoulder surg Social & Family History - Family History Family Medical History: Noncontributory - Tobacco Use Smoking Status *Q: Current Every Day Smoker Years of Tobacco use: 40 Packs/Tins Daily: 0.1 - Caffeine Use Caffeine Use: Reports: Coffee, Energy Drinks, Soda, Tea Caffeine Use Comment: 5 cups avg per day - Recreational Drug Use Recreational Drug Use: No H&P Review of Systems - Review of Systems: Review Of Systems: ROS reveals no pertinent complaints other than HPI. Exam - Exam Exam: See Below - Vital Signs Vital Signs: Last Vital Signs Temp 36.1 C 09/30/18 21:44 Pulse 76 09/30/18 21:44 Resp 26 H 09/30/18 21:44 BP 179/107 H 09/30/18 21:44 Pulse Ox 94 L 09/30/18 21:44 Weight: 63.503 kg - Exam General: Alert, Severe Distress HEENT: Hearing Intact, Mucosa Moist & Lucien Lungs: Decreased Breath Sounds, Wheezing Cardiovascular: Regular Rate, Regular Rhythm GI/Abdominal Exam: Soft, Non-Tender Extremities: Non-Tender, No Pedal Edema Skin: Warm, Dry, Intact - Patient Data Lab Results Last 24 hrs: Laboratory Results - last 24 hr 09/30/18 09/30/18 09/30/18 Range/Units 20:50 20:50 20:50 WBC 20.01 H (4.0-11.0) K/uL RBC 5.00 (4.30-5.90) M/uL Hgb 14.4 (12.0-16.0) g/dL Hct 44.2 (36.0-46.0) % MCV 88.4 (80.0-98.0) fL MCH 28.8 (27.0-32.0) pg MCHC 32.6 (31.0-37.0) g/dL RDW Std Deviation 44.6 (28.0-62.0) fl RDW Coeff of Jamil 14 (11.0-15.0) % Plt Count 272 (150-400) K/uL MPV 9.60 (7.40-12.00) fL Add Manual Diff YES Neutrophils % (Manual) 76 (48.0-80.0) % Band Neutrophils % 6 % Lymphocytes % (Manual) 12 L (16.0-40.0) % Monocytes % (Manual) 3 (0.0-15.0) % Eosinophils % (Manual) 2 (0.0-7.0) % Myelocytes % 1 % Nucleated RBC % 0.0 /100WBC Absolute Seg Neuts 15.2 H (1.4-5.7) Band Neutrophils # 1.2 Lymphocytes # (Manual) 2.4 (0.6-2.4) Monocytes # (Manual) 0.6 (0.0-0.8) Eosinophils # (Manual) 0.4 (0.0-0.7) Absolute Myelocytes 0.2 Nucleated RBCs # 0 K/uL INR 0.98 D-Dimer, Quantitative 0.26 (0.0-0.50) mg/L FEU ABG pH (7.35-7.45) ABG pCO2 (35-45) mmHG ABG pO2 (75-100) mmHG ABG HCO3 (22-26) mEq/L ABG Total CO2 ABG Base Excess (-2.0-2.0) Sodium (136-145) mmol/L Potassium (3.5-5.1) mmol/L Chloride (98-107) mmol/L Carbon Dioxide (21.0-32.0) mmol/L BUN (7.0-18.0) mg/dL Creatinine (0.6-1.0) mg/dL Est Cr Clr Drug Dosing mL/min Estimated GFR (MDRD) ml/min Glucose (74-106) mg/dL Calcium (8.5-10.1) mg/dL Total Bilirubin (0.2-1.0) mg/dL AST (15-37) IU/L ALT (14-63) IU/L Alkaline Phosphatase (46-116) U/L Creatine Kinase (26-308) U/L Troponin I (0.000-0.056) ng/mL Total Protein (6.4-8.2) g/dL Albumin (3.4-5.0) g/dL Globulin (2.6-4.0) g/dL Albumin/Globulin Ratio (0.9-1.6) 09/30/18 09/30/18 Range/Units 20:50 21:15 WBC (4.0-11.0) K/uL RBC (4.30-5.90) M/uL Hgb (12.0-16.0) g/dL Hct (36.0-46.0) % MCV (80.0-98.0) fL MCH (27.0-32.0) pg MCHC (31.0-37.0) g/dL RDW Std Deviation (28.0-62.0) fl RDW Coeff of Jamil (11.0-15.0) % Plt Count (150-400) K/uL MPV (7.40-12.00) fL Add Manual Diff Neutrophils % (Manual) (48.0-80.0) % Band Neutrophils % % Lymphocytes % (Manual) (16.0-40.0) % Monocytes % (Manual) (0.0-15.0) % Eosinophils % (Manual) (0.0-7.0) % Myelocytes % % Nucleated RBC % /100WBC Absolute Seg Neuts (1.4-5.7) Band Neutrophils # Lymphocytes # (Manual) (0.6-2.4) Monocytes # (Manual) (0.0-0.8) Eosinophils # (Manual) (0.0-0.7) Absolute Myelocytes Nucleated RBCs # K/uL INR D-Dimer, Quantitative (0.0-0.50) mg/L FEU ABG pH 7.447 (7.35-7.45) ABG pCO2 36 (35-45) mmHG ABG pO2 65 L (75-100) mmHG ABG HCO3 25 (22-26) mEq/L ABG Total CO2 22.1 ABG Base Excess 1.2 (-2.0-2.0) Sodium 135 L (136-145) mmol/L Potassium 4.2 (3.5-5.1) mmol/L Chloride 101 (98-107) mmol/L Carbon Dioxide 26.6 (21.0-32.0) mmol/L BUN 26 H (7.0-18.0) mg/dL Creatinine 1.2 H (0.6-1.0) mg/dL Est Cr Clr Drug Dosing 48.73 mL/min Estimated GFR (MDRD) 45.5 ml/min Glucose 100 (74-106) mg/dL Calcium 9.2 (8.5-10.1) mg/dL Total Bilirubin 0.6 (0.2-1.0) mg/dL AST 17 (15-37) IU/L ALT 28 (14-63) IU/L Alkaline Phosphatase 105 (46-116) U/L Creatine Kinase 65 (26-308) U/L Troponin I < 0.050 (0.000-0.056) ng/mL Total Protein 8.2 (6.4-8.2) g/dL Albumin 3.9 (3.4-5.0) g/dL Globulin 4.3 H (2.6-4.0) g/dL Albumin/Globulin Ratio 0.9 (0.9-1.6) Result Diagrams: 09/30/18 20:50 09/30/18 20:50 Problem List Initiated/Reviewed/Updated: Yes Orders Last 24hrs: Active Orders 24 hr Category Date Time Status Admission Status [Patient Status] [ADT] Stat ADT 09/30/18 22:11 Active Antiembolic Devices [RC] PER UNIT ROUTINE Care 09/30/18 23:26 Ordered EKG Documentation Completion [RC] STAT Care 09/30/18 20:51 Active Oxygen Therapy Adult [Oxygen Therapy, ED] [RC] Care 09/30/18 21:06 Active ASDIRECTED Oxygen Therapy [RC] PRN Care 09/30/18 23:25 Ordered RT Aerosol Therapy [RC] ASDIRECTED Care 09/30/18 20:51 Active RT Aerosol Therapy [RC] ASDIRECTED Care 09/30/18 20:58 Active RT Aerosol Therapy [RC] ASDIRECTED Care 09/30/18 23:25 Ordered RT Aerosol Therapy [RC] ASDIRECTED Care 09/30/18 23:26 Ordered Up ad Elma [RC] ASDIRECTED Care 09/30/18 23:25 Ordered VTE/DVT Education [RC] PER UNIT ROUTINE Care 09/30/18 23:25 Ordered Vital Signs [RC] Q4H Care 09/30/18 23:25 Ordered Regular Diet [DIET] Diet 09/30/18 Breakfast Ordered BASIC METABOLIC PANEL,BMP [CHEM] AM Lab 10/01/18 05:11 Ordered CBC WITH AUTO DIFF [HEME] AM Lab 10/01/18 05:11 Ordered UA RFX RYLEE AND CULT IF INDIC [URIN] Stat Lab 09/30/18 20:51 Ordered Albuterol/Ipratropium [DuoNeb 3.0-0.5 MG/3 ML] Med 09/30/18 23:25 Ordered 3 ml NEB Q2H PRN Albuterol/Ipratropium [DuoNeb 3.0-0.5 MG/3 ML] Med 10/01/18 00:00 Ordered 3 ml NEB Q6HRRT Enoxaparin [Lovenox] Med 09/30/18 23:30 Ordered 40 mg SUBCUT Q24H Escitalopram [Lexapro] Med 10/01/18 09:00 Ordered 10 mg PO DAILY Levofloxacin/Dextrose 5%-Water [Levaquin in D5W 750 MG/ Med 09/30/18 22:08 Active 150 ML] 750 mg Premix Bag 1 bag IV ONETIME Levofloxacin/Dextrose 5%-Water [Levaquin in D5W 750 MG/ Med 10/01/18 23:30 Ordered 150 ML] 750 mg Premix Bag 1 bag IV Q24H Prazosin HCl [Prazosin] Med 10/01/18 09:00 Ordered 2 mg PO DAILY Simvastatin [Zocor] Med 10/01/18 21:00 Ordered 10 mg PO BEDTIME Sodium Chloride 0.9% [Normal Saline] 1,000 ml Med 09/30/18 21:00 Active IV STAT Venlafaxine [Effexor XR] Med 10/01/18 09:00 Ordered 75 mg PO DAILY Verapamil [Calan SR] Med 10/01/18 09:00 Ordered 180 mg PO DAILY cloNIDine [Catapres] Med 10/01/18 09:00 Ordered 0.1 mg PO DAILY methylPREDNISolone Sod Succ [Solu-MEDROL] Med 10/01/18 07:00 Ordered 125 mg IVPUSH Q6H Sequential Compression Device [OM.PC] Per Unit Routine Oth 09/30/18 23:25 Ordered Resuscitation Status Routine Resus Stat 09/30/18 23:25 Ordered Medication Orders Albuterol/Ipratropium (Duoneb 3.0-0.5 Mg/3 Ml) 3 ml NEB Q6HRRT YASIR Albuterol/Ipratropium (Duoneb 3.0-0.5 Mg/3 Ml) 3 ml NEB Q2H PRN PRN Reason: Shortness Of Breath/wheezing Enoxaparin Sodium (Lovenox) 40 mg SUBCUT Q24H YASRI Sodium Chloride (Normal Saline) 1,000 mls @ 125 mls/hr IV STAT YASIR Last Admin: 09/30/18 20:58 Dose: 125 mls/hr Levofloxacin/Dextrose 750 mg/ (Premix) 150 mls @ 100 mls/hr IV ONETIME ONE Stop: 09/30/18 23:37 Last Admin: 09/30/18 22:47 Dose: 100 mls/hr Levofloxacin/Dextrose 750 mg/ (Premix) 150 mls @ 100 mls/hr IV Q24H YASIR Methylprednisolone Sodium Succinate (Solu-Medrol) 125 mg IVPUSH Q6H [facility] Assessment/Plan Comment:: 63 yo female admitted for COPD exacerbation. We will treat with solumedrol, duonebs and levaquin.
[2018-09-30] MEDS: Enoxaparin 40 MG/0.4 ML Syringe SUBCUT SCH (23:36)
[2018-09-30] MEDS: Albuterol/Ipratropium 3.0-0.5 MG/3 ML Neb Soln NEB SCH (23:36)
[2018-10-01] MEDS: Albuterol/Ipratropium 3.0-0.5 MG/3 ML Neb Soln NEB SCH ×4 (06:10→23:55)
[2018-10-01] MEDS: methylPREDNISolone Sodium Succinate 125 MG/2 ML SDV IVPUSH SCH ×3 (06:10→20:56)
[2018-10-01] MEDS: Sodium Chloride 0.9% 1,000 ML IV SCH ×2 (06:34→15:53)
[2018-10-01] MEDS: Escitalopram 10 MG Tab PO SCH (08:36)
[2018-10-01] MEDS: Verapamil 180 MG Tab.ER PO SCH (08:36)
[2018-10-01] MEDS: Venlafaxine 75 MG Cap.ER PO SCH (08:36)
[2018-10-01] MEDS: Prazosin 1 MG Cap PO SCH (08:45)
[2018-10-01] MEDS ORDERED: cloNIDine 0.1 MG Tab PO SCH (09:00)
[2018-10-01] MEDS: cloNIDine 0.1 MG Tab PO SCH ×2 (09:10→20:54)
--- NOTE | 2018-10-01 14:19 | PCM.PN ---
- General Info Date of Service: 10/01/18 - Patient Data Vitals - Most Recent: Last Vital Signs Temp 35.6 C 10/01/18 11:44 Pulse 83 10/01/18 11:44 Resp 22 H 10/01/18 11:44 BP 146/71 H 10/01/18 11:44 Pulse Ox 94 L 10/01/18 11:44 Weight - Most Recent: 64.954 kg I&O - Last 24 Hours: Intake & Output 09/30/18 10/01/18 10/01/18 22:59 06:59 14:59 Intake Total 735 Output Total 300 Balance 435 Lab Results Last 24 Hours: Laboratory Results - last 24 hr 09/30/18 09/30/18 09/30/18 Range/Units 20:50 20:50 20:50 WBC 20.01 H (4.0-11.0) K/uL RBC 5.00 (4.30-5.90) M/uL Hgb 14.4 (12.0-16.0) g/dL Hct 44.2 (36.0-46.0) % MCV 88.4 (80.0-98.0) fL MCH 28.8 (27.0-32.0) pg MCHC 32.6 (31.0-37.0) g/dL RDW Std Deviation 44.6 (28.0-62.0) fl RDW Coeff of Jamil 14 (11.0-15.0) % Plt Count 272 (150-400) K/uL MPV 9.60 (7.40-12.00) fL Neut % (Auto) (48.0-80.0) % Lymph % (Auto) (16.0-40.0) % [place] % (Auto) (0.0-15.0) % Eos % (Auto) (0.0-7.0) % Baso % (Auto) (0.0-1.5) % Neut # (Auto) (1.4-5.7) K/uL Lymph # (Auto) (0.6-2.4) K/uL [place] # (Auto) (0.0-0.8) K/uL Eos # (Auto) (0.0-0.7) K/uL Baso # (Auto) (0.0-0.1) K/uL Add Manual Diff YES Neutrophils % (Manual) 76 (48.0-80.0) % Band Neutrophils % 6 % Lymphocytes % (Manual) 12 L (16.0-40.0) % Monocytes % (Manual) 3 (0.0-15.0) % Eosinophils % (Manual) 2 (0.0-7.0) % Myelocytes % 1 % Nucleated RBC % 0.0 /100WBC Absolute Seg Neuts 15.2 H (1.4-5.7) Band Neutrophils # 1.2 Lymphocytes # (Manual) 2.4 (0.6-2.4) Monocytes # (Manual) 0.6 (0.0-0.8) Eosinophils # (Manual) 0.4 (0.0-0.7) Absolute Myelocytes 0.2 Nucleated RBCs # 0 K/uL INR 0.98 D-Dimer, Quantitative 0.26 (0.0-0.50) mg/L FEU ABG pH (7.35-7.45) ABG pCO2 (35-45) mmHG ABG pO2 (75-100) mmHG ABG HCO3 (22-26) mEq/L ABG Total CO2 ABG Base Excess (-2.0-2.0) Sodium (136-145) mmol/L Potassium (3.5-5.1) mmol/L Chloride (98-107) mmol/L Carbon Dioxide (21.0-32.0) mmol/L BUN (7.0-18.0) mg/dL Creatinine (0.6-1.0) mg/dL Est Cr Clr Drug Dosing mL/min Estimated GFR (MDRD) ml/min Glucose (74-106) mg/dL Calcium (8.5-10.1) mg/dL Total Bilirubin (0.2-1.0) mg/dL AST (15-37) IU/L ALT (14-63) IU/L Alkaline Phosphatase (46-116) U/L Creatine Kinase (26-308) U/L Troponin I (0.000-0.056) ng/mL Total Protein (6.4-8.2) g/dL Albumin (3.4-5.0) g/dL Globulin (2.6-4.0) g/dL Albumin/Globulin Ratio (0.9-1.6) Urine Color Urine Appearance Urine pH (5.0-8.0) Ur Specific [place] (1.001-1.035) Urine Protein (NEGATIVE) mg/dL Urine Glucose (UA) (NEGATIVE) mg/dL Urine Ketones (NEGATIVE) mg/dL Urine Occult Blood (NEGATIVE) Urine Nitrite (NEGATIVE) Urine Bilirubin (NEGATIVE) Urine Urobilinogen (<2.0) EU/dL Ur Leukocyte Esterase (NEGATIVE) 09/30/18 09/30/18 10/01/18 Range/Units 20:50 21:15 00:30 WBC (4.0-11.0) K/uL RBC (4.30-5.90) M/uL Hgb (12.0-16.0) g/dL Hct (36.0-46.0) % MCV (80.0-98.0) fL MCH (27.0-32.0) pg MCHC (31.0-37.0) g/dL RDW Std Deviation (28.0-62.0) fl RDW Coeff of Jamil (11.0-15.0) % Plt Count (150-400) K/uL MPV (7.40-12.00) fL Neut % (Auto) (48.0-80.0) % Lymph % (Auto) (16.0-40.0) % [place] % (Auto) (0.0-15.0) % Eos % (Auto) (0.0-7.0) % Baso % (Auto) (0.0-1.5) % Neut # (Auto) (1.4-5.7) K/uL Lymph # (Auto) (0.6-2.4) K/uL [place] # (Auto) (0.0-0.8) K/uL Eos # (Auto) (0.0-0.7) K/uL Baso # (Auto) (0.0-0.1) K/uL Add Manual Diff Neutrophils % (Manual) (48.0-80.0) % Band Neutrophils % % Lymphocytes % (Manual) (16.0-40.0) % Monocytes % (Manual) (0.0-15.0) % Eosinophils % (Manual) (0.0-7.0) % Myelocytes % % Nucleated RBC % /100WBC Absolute Seg Neuts (1.4-5.7) Band Neutrophils # Lymphocytes # (Manual) (0.6-2.4) Monocytes # (Manual) (0.0-0.8) Eosinophils # (Manual) (0.0-0.7) Absolute Myelocytes Nucleated RBCs # K/uL INR D-Dimer, Quantitative (0.0-0.50) mg/L FEU ABG pH 7.447 (7.35-7.45) ABG pCO2 36 (35-45) mmHG ABG pO2 65 L (75-100) mmHG ABG HCO3 25 (22-26) mEq/L ABG Total CO2 22.1 ABG Base Excess 1.2 (-2.0-2.0) Sodium 135 L (136-145) mmol/L Potassium 4.2 (3.5-5.1) mmol/L Chloride 101 (98-107) mmol/L Carbon Dioxide 26.6 (21.0-32.0) mmol/L BUN 26 H (7.0-18.0) mg/dL Creatinine 1.2 H (0.6-1.0) mg/dL Est Cr Clr Drug Dosing 48.73 mL/min Estimated GFR (MDRD) 45.5 ml/min Glucose 100 (74-106) mg/dL Calcium 9.2 (8.5-10.1) mg/dL Total Bilirubin 0.6 (0.2-1.0) mg/dL AST 17 (15-37) IU/L ALT 28 (14-63) IU/L Alkaline Phosphatase 105 (46-116) U/L Creatine Kinase 65 (26-308) U/L Troponin I < 0.050 (0.000-0.056) ng/mL Total Protein 8.2 (6.4-8.2) g/dL Albumin 3.9 (3.4-5.0) g/dL Globulin 4.3 H (2.6-4.0) g/dL Albumin/Globulin Ratio 0.9 (0.9-1.6) Urine Color YELLOW Urine Appearance CLEAR Urine pH 5.5 (5.0-8.0) Ur Specific [place] 1.025 (1.001-1.035) Urine Protein NEGATIVE (NEGATIVE) mg/dL Urine Glucose (UA) NEGATIVE (NEGATIVE) mg/dL Urine Ketones NEGATIVE (NEGATIVE) mg/dL Urine Occult Blood NEGATIVE (NEGATIVE) Urine Nitrite NEGATIVE (NEGATIVE) Urine Bilirubin NEGATIVE (NEGATIVE) Urine Urobilinogen 0.2 (<2.0) EU/dL Ur Leukocyte Esterase NEGATIVE (NEGATIVE) 10/01/18 10/01/18 Range/Units 04:52 04:52 WBC 14.45 H (4.0-11.0) K/uL RBC 4.90 (4.30-5.90) M/uL Hgb 13.9 (12.0-16.0) g/dL Hct 43.4 (36.0-46.0) % MCV 88.6 (80.0-98.0) fL MCH 28.4 (27.0-32.0) pg MCHC 32.0 (31.0-37.0) g/dL RDW Std Deviation 44.5 (28.0-62.0) fl RDW Coeff of Jamil 14 (11.0-15.0) % Plt Count 230 (150-400) K/uL MPV 9.80 (7.40-12.00) fL Neut % (Auto) 92.5 H (48.0-80.0) % Lymph % (Auto) 6.4 L (16.0-40.0) % [place] % (Auto) 1.0 (0.0-15.0) % Eos % (Auto) 0.0 (0.0-7.0) % Baso % (Auto) 0.1 (0.0-1.5) % Neut # (Auto) 13.4 H (1.4-5.7) K/uL Lymph # (Auto) 0.9 (0.6-2.4) K/uL [place] # (Auto) 0.2 (0.0-0.8) K/uL Eos # (Auto) 0.0 (0.0-0.7) K/uL Baso # (Auto) 0.0 (0.0-0.1) K/uL Add Manual Diff Neutrophils % (Manual) (48.0-80.0) % Band Neutrophils % % Lymphocytes % (Manual) (16.0-40.0) % Monocytes % (Manual) (0.0-15.0) % Eosinophils % (Manual) (0.0-7.0) % Myelocytes % % Nucleated RBC % 0.0 /100WBC Absolute Seg Neuts (1.4-5.7) Band Neutrophils # Lymphocytes # (Manual) (0.6-2.4) Monocytes # (Manual) (0.0-0.8) Eosinophils # (Manual) (0.0-0.7) Absolute Myelocytes Nucleated RBCs # 0 K/uL INR D-Dimer, Quantitative (0.0-0.50) mg/L FEU ABG pH (7.35-7.45) ABG pCO2 (35-45) mmHG ABG pO2 (75-100) mmHG ABG HCO3 (22-26) mEq/L ABG Total CO2 ABG Base Excess (-2.0-2.0) Sodium 137 (136-145) mmol/L Potassium 4.7 (3.5-5.1) mmol/L Chloride 102 (98-107) mmol/L Carbon Dioxide 26.3 (21.0-32.0) mmol/L BUN 23 H (7.0-18.0) mg/dL Creatinine 1.2 H (0.6-1.0) mg/dL Est Cr Clr Drug Dosing 49.03 mL/min Estimated GFR (MDRD) 45.5 ml/min Glucose 157 H (74-106) mg/dL Calcium 9.3 (8.5-10.1) mg/dL Total Bilirubin (0.2-1.0) mg/dL AST (15-37) IU/L ALT (14-63) IU/L Alkaline Phosphatase (46-116) U/L Creatine Kinase (26-308) U/L Troponin I (0.000-0.056) ng/mL Total Protein (6.4-8.2) g/dL Albumin (3.4-5.0) g/dL Globulin (2.6-4.0) g/dL Albumin/Globulin Ratio (0.9-1.6) Urine Color Urine Appearance Urine pH (5.0-8.0) Ur Specific [place] (1.001-1.035) Urine Protein (NEGATIVE) mg/dL Urine Glucose (UA) (NEGATIVE) mg/dL Urine Ketones (NEGATIVE) mg/dL Urine Occult Blood (NEGATIVE) Urine Nitrite (NEGATIVE) Urine Bilirubin (NEGATIVE) Urine Urobilinogen (<2.0) EU/dL Ur Leukocyte Esterase (NEGATIVE) Med Orders - Current: Current Medications Albuterol/Ipratropium (Duoneb 3.0-0.5 Mg/3 Ml) 3 ml NEB Q6HRRT [facility] Last Admin: 10/01/18 11:11 Dose: 3 ml Albuterol/Ipratropium (Duoneb 3.0-0.5 Mg/3 Ml) 3 ml NEB Q2H PRN PRN Reason: Shortness Of Breath/wheezing Clonidine HCl (Catapres) 0.1 mg PO BID [facility] Last Admin: 10/01/18 09:10 Dose: Not Given Enoxaparin Sodium (Lovenox) 40 mg SUBCUT Q24H [facility] Last Admin: 09/30/18 23:36 Dose: 40 mg Escitalopram Oxalate (Lexapro) 10 mg PO DAILY [facility] Last Admin: 10/01/18 08:36 Dose: 10 mg Sodium Chloride (Normal Saline) 1,000 mls @ 125 mls/hr IV STAT [facility] Last Admin: 10/01/18 06:34 Dose: 125 mls/hr Levofloxacin/Dextrose 750 mg/ (Premix) 150 mls @ 100 mls/hr IV Q24H [facility] Methylprednisolone Sodium Succinate (Solu-Medrol) 125 mg IVPUSH Q6H [facility] Last Admin: 10/01/18 13:08 Dose: 125 mg Prazosin HCl (Minpress) 2 mg PO DAILY [facility] Last Admin: 10/01/18 08:45 Dose: 2 mg Simvastatin (Zocor) 10 mg PO BEDTIME [facility] Venlafaxine HCl (Effexor Xr) 75 mg PO DAILY [facility] Last Admin: 10/01/18 08:36 Dose: 75 mg Verapamil HCl (Calan Sr) 180 mg PO DAILY [facility] Last Admin: 10/01/18 08:36 Dose: 180 mg Discontinued Medications Albuterol (Proventil Neb Soln) 2.5 mg NEB ONETIME ONE Stop: 09/30/18 20:51 Last Admin: 09/30/18 21:07 Dose: 2.5 mg Albuterol/Ipratropium (Duoneb 3.0-0.5 Mg/3 Ml) 3 ml NEB ONETIME ONE Stop: 09/30/18 20:59 Last Admin: 09/30/18 20:50 Dose: 3 ml Clonidine HCl (Catapres) 0.1 mg PO DAILY [facility] Last Admin: 10/01/18 08:36 Dose: 0.1 mg Piperacillin Sod/Tazobactam (Sod 3.375 gm/ Sodium Chloride) 50 mls @ 100 mls/ hr IV ONETIME ONE Stop: 09/30/18 22:27 Last Admin: 09/30/18 22:05 Dose: 100 mls/hr Levofloxacin/Dextrose 750 mg/ (Premix) 150 mls @ 100 mls/hr IV ONETIME ONE Stop: 09/30/18 23:37 Last Admin: 09/30/18 22:47 Dose: 100 mls/hr Piperacillin Sod/Tazobactam (Sod 3.375 gm/ Sodium Chloride) 50 mls @ 100 mls/ hr IV ONETIME ONE Stop: 09/30/18 22:46 Last Admin: 09/30/18 22:50 Dose: Not Given Methylprednisolone Sodium Succinate (Solu-Medrol) 125 mg IVPUSH ONETIME ONE Stop: 09/30/18 20:51 Last Admin: 09/30/18 20:58 Dose: 125 mg - Exam General: Alert, Oriented HEENT: Pupils Equal Neck: Supple Lungs: Decreased Breath Sounds, Rhonchi, Wheezing Cardiovascular: Regular Rate, Regular Rhythm GI/Abdominal Exam: Normal Bowel Sounds, Soft, Non-Tender Skin: Warm, Dry, Intact - Problem List Review Problem List Initiated/Reviewed/Updated: Yes - My Orders Last 24 Hours: My Active Orders 09/30/18 22:11 Telemetry Monitoring [Cardiac Monitoring] [RC] . DIRECTED 09/30/18 23:25 Oxygen Therapy [RC] PRN RT Aerosol Therapy [RC] ASDIRECTED Up ad [place] [RC] ASDIRECTED VTE/DVT Education [RC] PER UNIT ROUTINE Vital Signs [RC] Q4H Albuterol/Ipratropium [DuoNeb 3.0-0.5 MG/3 ML] 3 ml NEB Q2H PRN Sequential Compression Device [OM.PC] Per Unit Routine Resuscitation Status Routine 09/30/18 23:26 Antiembolic Devices [RC] PER UNIT ROUTINE RT Aerosol Therapy [RC] ASDIRECTED 09/30/18 23:30 Enoxaparin [Lovenox] 40 mg SUBCUT Q24H 10/01/18 00:00 Albuterol/Ipratropium [DuoNeb 3.0-0.5 MG/3 ML] 3 ml NEB Q6HRRT 10/01/18 07:00 methylPREDNISolone Sod Succ [Solu-MEDROL] 125 mg IVPUSH Q6H 10/01/18 09:00 Escitalopram [Lexapro] 10 mg PO DAILY Prazosin [Minpress] 2 mg PO DAILY Venlafaxine [Effexor XR] 75 mg PO DAILY Verapamil [Calan SR] 180 mg PO DAILY 10/01/18 21:00 Simvastatin [Zocor] 10 mg PO BEDTIME 10/01/18 23:30 Levofloxacin/Dextrose 5%-Water [Levaquin in D5W 750 MG/150 ML] 750 mg Premix Bag 1 bag IV Q24H 10/02/18 05:11 BASIC METABOLIC PANEL,BMP [CHEM] AM CBC WITH AUTO DIFF [HEME] AM 10/03/18 05:11 BASIC METABOLIC PANEL,BMP [CHEM] AM CBC WITH AUTO DIFF [HEME] AM - Plan Plan:: 63 yo female admitted for COPD exacerbation. White count has improved and patient is feeling better. We will continue with solumedrol, duonebs and Levaquin. We will wean oxygen as tolerated.
[2018-10-01] MEDS ORDERED: methylPREDNISolone Sodium Succinate 125 MG/2 ML SDV IVPUSH SCH (14:30)
[2018-10-01] MEDS: Acetaminophen 325 MG Tab PO PRN (20:16)
[2018-10-01] MEDS: Simvastatin 10 MG Tab PO SCH (20:54)
[2018-10-01] MEDS: Enoxaparin 40 MG/0.4 ML Syringe SUBCUT SCH (23:04)
[2018-10-01] MEDS: Levofloxacin/Dextrose 5%-Water 750 MG in Premix Bag 1 BAG IV SCH (23:04)
[2018-10-02] MEDS: Sodium Chloride 0.9% 1,000 ML IV SCH (01:29)
[2018-10-02] MEDS: Acetaminophen 325 MG Tab PO PRN ×2 (03:45→14:52)
[2018-10-02] MEDS: methylPREDNISolone Sodium Succinate 125 MG/2 ML SDV IVPUSH SCH ×2 (04:45→16:11)
[2018-10-02] MEDS: Albuterol/Ipratropium 3.0-0.5 MG/3 ML Neb Soln NEB SCH ×3 (06:00→17:26)
[2018-10-02] MEDS: cloNIDine 0.1 MG Tab PO SCH ×3 (06:04→20:49)
[2018-10-02] MEDS: Escitalopram 10 MG Tab PO SCH (08:46)
[2018-10-02] MEDS: Venlafaxine 75 MG Cap.ER PO SCH (08:46)
[2018-10-02] MEDS: Verapamil 180 MG Tab.ER PO SCH (08:46)
[2018-10-02] MEDS: Prazosin 1 MG Cap PO SCH (08:53)
--- NOTE | 2018-10-02 10:43 | PCM.PN ---
- General Info Date of Service: 10/02/18 - Review of Systems Systems Review Comment:: feeling better, wheezing and shortness of breath improved. - Patient Data Vitals - Most Recent: Last Vital Signs Temp 36.4 C 10/02/18 07:53 Pulse 75 10/02/18 07:53 Resp 18 10/02/18 07:53 BP 181/92 H 10/02/18 08:53 Pulse Ox 96 10/02/18 07:53 Weight - Most Recent: 63.503 kg I&O - Last 24 Hours: Intake & Output 10/01/18 10/02/18 10/02/18 22:59 06:59 14:59 Intake Total 2618 1465 937 Output Total 940 600 Balance 1678 865 937 Lab Results Last 24 Hours: Laboratory Results - last 24 hr 10/02/18 10/02/18 Range/Units 04:55 04:55 WBC 20.82 H (4.0-11.0) K/uL RBC 4.36 (4.30-5.90) M/uL Hgb 12.4 (12.0-16.0) g/dL Hct 38.2 (36.0-46.0) % MCV 87.6 (80.0-98.0) fL MCH 28.4 (27.0-32.0) pg MCHC 32.5 (31.0-37.0) g/dL RDW Std Deviation 43.3 (28.0-62.0) fl RDW Coeff of Jamil 14 (11.0-15.0) % Plt Count 201 (150-400) K/uL MPV 9.60 (7.40-12.00) fL Neut % (Auto) 91.8 H (48.0-80.0) % Lymph % (Auto) 5.7 L (16.0-40.0) % [place] % (Auto) 2.4 (0.0-15.0) % Eos % (Auto) 0.0 (0.0-7.0) % Baso % (Auto) 0.1 (0.0-1.5) % Neut # (Auto) 19.1 H (1.4-5.7) K/uL Lymph # (Auto) 1.2 (0.6-2.4) K/uL [place] # (Auto) 0.5 (0.0-0.8) K/uL Eos # (Auto) 0.0 (0.0-0.7) K/uL Baso # (Auto) 0.0 (0.0-0.1) K/uL Nucleated RBC % 0.0 /100WBC Nucleated RBCs # 0 K/uL Sodium 136 (136-145) mmol/L Potassium 4.4 (3.5-5.1) mmol/L Chloride 103 (98-107) mmol/L Carbon Dioxide 23.1 (21.0-32.0) mmol/L BUN 23 H (7.0-18.0) mg/dL Creatinine 1.0 (0.6-1.0) mg/dL Est Cr Clr Drug Dosing 58.47 mL/min Estimated GFR (MDRD) 56.2 ml/min Glucose 149 H (74-106) mg/dL Calcium 8.8 (8.5-10.1) mg/dL Med Orders - Current: Current Medications Acetaminophen (Tylenol) 650 mg PO Q6H PRN PRN Reason: Pain Last Admin: 10/02/18 03:45 Dose: 650 mg Albuterol/Ipratropium (Duoneb 3.0-0.5 Mg/3 Ml) 3 ml NEB Q6HRRT [facility] Last Admin: 10/02/18 06:00 Dose: 3 ml Albuterol/Ipratropium (Duoneb 3.0-0.5 Mg/3 Ml) 3 ml NEB Q2H PRN PRN Reason: Shortness Of Breath/wheezing Clonidine HCl (Catapres) 0.1 mg PO BID [facility] Last Admin: 10/02/18 09:24 Dose: Not Given Enoxaparin Sodium (Lovenox) 40 mg SUBCUT Q24H [facility] Last Admin: 10/01/18 23:04 Dose: 40 mg Escitalopram Oxalate (Lexapro) 10 mg PO DAILY [facility] Last Admin: 10/02/18 08:46 Dose: 10 mg Levofloxacin/Dextrose 750 mg/ (Premix) 150 mls @ 100 mls/hr IV Q24H [facility] Last Admin: 10/01/18 23:04 Dose: 100 mls/hr Methylprednisolone Sodium Succinate (Solu-Medrol) 125 mg IVPUSH Q12H [facility] Prazosin HCl (Minpress) 2 mg PO DAILY [facility] Last Admin: 10/02/18 08:53 Dose: 2 mg Simvastatin (Zocor) 10 mg PO BEDTIME [facility] Last Admin: 10/01/18 20:54 Dose: 10 mg Venlafaxine HCl (Effexor Xr) 75 mg PO DAILY [facility] Last Admin: 10/02/18 08:46 Dose: 75 mg Verapamil HCl (Calan Sr) 180 mg PO DAILY [facility] Last Admin: 10/02/18 08:46 Dose: 180 mg Discontinued Medications Albuterol (Proventil Neb Soln) 2.5 mg NEB ONETIME ONE Stop: 09/30/18 20:51 Last Admin: 09/30/18 21:07 Dose: 2.5 mg Albuterol/Ipratropium (Duoneb 3.0-0.5 Mg/3 Ml) 3 ml NEB ONETIME ONE Stop: 09/30/18 20:59 Last Admin: 09/30/18 20:50 Dose: 3 ml Clonidine HCl (Catapres) 0.1 mg PO DAILY [facility] Last Admin: 10/01/18 08:36 Dose: 0.1 mg Sodium Chloride (Normal Saline) 1,000 mls @ 125 mls/hr IV STAT [facility] Last Admin: 10/02/18 01:29 Dose: 125 mls/hr Piperacillin Sod/Tazobactam (Sod 3.375 gm/ Sodium Chloride) 50 mls @ 100 mls/ hr IV ONETIME ONE Stop: 09/30/18 22:27 Last Admin: 09/30/18 22:05 Dose: 100 mls/hr Levofloxacin/Dextrose 750 mg/ (Premix) 150 mls @ 100 mls/hr IV ONETIME ONE Stop: 09/30/18 23:37 Last Admin: 09/30/18 22:47 Dose: 100 mls/hr Piperacillin Sod/Tazobactam (Sod 3.375 gm/ Sodium Chloride) 50 mls @ 100 mls/ hr IV ONETIME ONE Stop: 09/30/18 22:46 Last Admin: 09/30/18 22:50 Dose: Not Given Methylprednisolone Sodium Succinate (Solu-Medrol) 125 mg IVPUSH ONETIME ONE Stop: 09/30/18 20:51 Last Admin: 09/30/18 20:58 Dose: 125 mg Methylprednisolone Sodium Succinate (Solu-Medrol) 125 mg IVPUSH Q6H [facility] Last Admin: 10/01/18 13:08 Dose: 125 mg Methylprednisolone Sodium Succinate (Solu-Medrol) 125 mg IVPUSH Q8H [facility] Last Admin: 10/01/18 15:49 Dose: Not Given Methylprednisolone Sodium Succinate (Solu-Medrol) 125 mg IVPUSH Q8H [facility] Last Admin: 10/02/18 04:45 Dose: 125 mg - Exam General: Alert, Oriented Neck: Supple Lungs: Normal Respiratory Effort, Wheezing Cardiovascular: Regular Rate, Regular Rhythm GI/Abdominal Exam: Soft, Non-Tender Skin: Warm, Dry, Intact - Problem List Review Problem List Initiated/Reviewed/Updated: Yes - My Orders Last 24 Hours: My Active Orders 10/01/18 19:58 Acetaminophen [Tylenol] 650 mg PO Q6H PRN 10/01/18 21:00 Simvastatin [Zocor] 10 mg PO BEDTIME 10/01/18 23:30 Levofloxacin/Dextrose 5%-Water [Levaquin in D5W 750 MG/150 ML] 750 mg Premix Bag 1 bag IV Q24H 10/03/18 05:11 BASIC METABOLIC PANEL,BMP [CHEM] AM CBC WITH AUTO DIFF [HEME] AM - Plan Plan:: 63 yo female admitted for COPD exacerbation. We will continue solumedrol, duonebs and levaquin. We will wean oxygen as tolerated. Dispo home in next 1- 2 days
[2018-10-02] MEDS: Albuterol/Ipratropium 3.0-0.5 MG/3 ML Neb Soln NEB PRN ×2 (14:34→21:47)
[2018-10-02] MEDS: Simvastatin 10 MG Tab PO SCH (20:49)
[2018-10-02] MEDS: Levofloxacin/Dextrose 5%-Water 750 MG in Premix Bag 1 BAG IV SCH (23:26)
[2018-10-02] MEDS: Enoxaparin 40 MG/0.4 ML Syringe SUBCUT SCH (23:27)
[2018-10-03] MEDS: Albuterol/Ipratropium 3.0-0.5 MG/3 ML Neb Soln NEB SCH ×5 (00:21→21:12)
[2018-10-03] MEDS: methylPREDNISolone Sodium Succinate 125 MG/2 ML SDV IVPUSH SCH ×2 (04:36→16:23)
[2018-10-03] MEDS: Venlafaxine 75 MG Cap.ER PO SCH (09:42)
[2018-10-03] MEDS: Escitalopram 10 MG Tab PO SCH (09:43)
[2018-10-03] MEDS: Acetaminophen 325 MG Tab PO PRN ×2 (09:43→16:26)
[2018-10-03] MEDS: Verapamil 180 MG Tab.ER PO SCH (09:43)
[2018-10-03] MEDS: cloNIDine 0.1 MG Tab PO SCH ×2 (09:43→21:00)
--- NOTE | 2018-10-03 10:06 | PCM.PN ---
- General Info Date of Service: 10/03/18 - Review of Systems Systems Review Comment:: feeling better, cough and shortness of breath is improving. - Patient Data Vitals - Most Recent: Last Vital Signs Temp 36.1 C 10/03/18 08:00 Pulse 73 10/03/18 08:00 Resp 20 10/03/18 08:00 BP 194/108 H 10/03/18 09:43 Pulse Ox 97 10/03/18 08:00 Weight - Most Recent: 63.503 kg I&O - Last 24 Hours: Intake & Output 10/02/18 10/03/18 10/03/18 22:59 06:59 14:59 Intake Total 900 850 Output Total 1200 800 Balance -300 50 Lab Results Last 24 Hours: Laboratory Results - last 24 hr 10/03/18 10/03/18 Range/Units 05:16 05:16 WBC 23.27 H (4.0-11.0) K/uL RBC 4.36 (4.30-5.90) M/uL Hgb 12.4 (12.0-16.0) g/dL Hct 38.3 (36.0-46.0) % MCV 87.8 (80.0-98.0) fL MCH 28.4 (27.0-32.0) pg MCHC 32.4 (31.0-37.0) g/dL RDW Std Deviation 43.8 (28.0-62.0) fl RDW Coeff of Jamil 14 (11.0-15.0) % Plt Count 227 (150-400) K/uL MPV 9.60 (7.40-12.00) fL Add Manual Diff YES Neutrophils % (Manual) 85 H (48.0-80.0) % Band Neutrophils % 10 % Lymphocytes % (Manual) 4 L (16.0-40.0) % Monocytes % (Manual) 1 (0.0-15.0) % Nucleated RBC % 0.0 /100WBC Absolute Seg Neuts 19.8 H (1.4-5.7) Band Neutrophils # 2.3 Lymphocytes # (Manual) 0.9 (0.6-2.4) Monocytes # (Manual) 0.2 (0.0-0.8) Nucleated RBCs # 0 K/uL Sodium 137 (136-145) mmol/L Potassium 4.5 (3.5-5.1) mmol/L Chloride 103 (98-107) mmol/L Carbon Dioxide 23.9 (21.0-32.0) mmol/L BUN 25 H (7.0-18.0) mg/dL Creatinine 1.0 (0.6-1.0) mg/dL Est Cr Clr Drug Dosing 58.47 mL/min Estimated GFR (MDRD) 56.2 ml/min Glucose 144 H (74-106) mg/dL Calcium 8.7 (8.5-10.1) mg/dL Med Orders - Current: Current Medications Acetaminophen (Tylenol) 650 mg PO Q6H PRN PRN Reason: Pain Last Admin: 10/03/18 09:43 Dose: 650 mg Albuterol/Ipratropium (Duoneb 3.0-0.5 Mg/3 Ml) 3 ml NEB Q6HRRT [facility] Last Admin: 10/03/18 06:04 Dose: 3 ml Albuterol/Ipratropium (Duoneb 3.0-0.5 Mg/3 Ml) 3 ml NEB Q2H PRN PRN Reason: Shortness Of Breath/wheezing Last Admin: 10/02/18 21:47 Dose: 3 ml Clonidine HCl (Catapres) 0.1 mg PO BID [facility] Last Admin: 10/03/18 09:43 Dose: 0.1 mg Enoxaparin Sodium (Lovenox) 40 mg SUBCUT Q24H [facility] Last Admin: 10/02/18 23:27 Dose: 40 mg Escitalopram Oxalate (Lexapro) 10 mg PO DAILY [facility] Last Admin: 10/03/18 09:43 Dose: 10 mg Levofloxacin/Dextrose 750 mg/ (Premix) 150 mls @ 100 mls/hr IV Q24H [facility] Last Admin: 10/02/18 23:26 Dose: 100 mls/hr Methylprednisolone Sodium Succinate (Solu-Medrol) 125 mg IVPUSH Q12H [facility] Last Admin: 10/03/18 04:36 Dose: 125 mg Prazosin HCl (Minpress) 2 mg PO DAILY [facility] Last Admin: 10/02/18 08:53 Dose: 2 mg Simvastatin (Zocor) 10 mg PO BEDTIME [facility] Last Admin: 10/02/18 20:49 Dose: 10 mg Venlafaxine HCl (Effexor Xr) 75 mg PO DAILY [facility] Last Admin: 10/03/18 09:42 Dose: 75 mg Verapamil HCl (Calan Sr) 180 mg PO DAILY [facility] Last Admin: 10/03/18 09:43 Dose: 180 mg Discontinued Medications Albuterol (Proventil Neb Soln) 2.5 mg NEB ONETIME ONE Stop: 09/30/18 20:51 Last Admin: 09/30/18 21:07 Dose: 2.5 mg Albuterol/Ipratropium (Duoneb 3.0-0.5 Mg/3 Ml) 3 ml NEB ONETIME ONE Stop: 09/30/18 20:59 Last Admin: 09/30/18 20:50 Dose: 3 ml Clonidine HCl (Catapres) 0.1 mg PO DAILY [facility] Last Admin: 10/01/18 08:36 Dose: 0.1 mg Sodium Chloride (Normal Saline) 1,000 mls @ 125 mls/hr IV STAT [facility] Last Admin: 10/02/18 01:29 Dose: 125 mls/hr Piperacillin Sod/Tazobactam (Sod 3.375 gm/ Sodium Chloride) 50 mls @ 100 mls/ hr IV ONETIME ONE Stop: 09/30/18 22:27 Last Admin: 09/30/18 22:05 Dose: 100 mls/hr Levofloxacin/Dextrose 750 mg/ (Premix) 150 mls @ 100 mls/hr IV ONETIME ONE Stop: 09/30/18 23:37 Last Admin: 09/30/18 22:47 Dose: 100 mls/hr Piperacillin Sod/Tazobactam (Sod 3.375 gm/ Sodium Chloride) 50 mls @ 100 mls/ hr IV ONETIME ONE Stop: 09/30/18 22:46 Last Admin: 09/30/18 22:50 Dose: Not Given Methylprednisolone Sodium Succinate (Solu-Medrol) 125 mg IVPUSH ONETIME ONE Stop: 09/30/18 20:51 Last Admin: 09/30/18 20:58 Dose: 125 mg Methylprednisolone Sodium Succinate (Solu-Medrol) 125 mg IVPUSH Q6H [facility] Last Admin: 10/01/18 13:08 Dose: 125 mg Methylprednisolone Sodium Succinate (Solu-Medrol) 125 mg IVPUSH Q8H [facility] Last Admin: 10/01/18 15:49 Dose: Not Given Methylprednisolone Sodium Succinate (Solu-Medrol) 125 mg IVPUSH Q8H [facility] Last Admin: 10/02/18 04:45 Dose: 125 mg - Exam General: Alert, Oriented Lungs: Normal Respiratory Effort, Wheezing GI/Abdominal Exam: Normal Bowel Sounds, Soft Extremities: Normal Inspection, Non-Tender Skin: Warm, Dry, Intact Neurological: No New Focal Deficit - Problem List Review Problem List Initiated/Reviewed/Updated: Yes - Plan Plan:: 63 yo female admitted for COPD exacerbation. We will continue solumedrol, duonebs and levaquin. We will wean oxygen as tolerated. Anticipate discharge home tomorrow.
[2018-10-03] MEDS: Prazosin 1 MG Cap PO SCH (10:32)
[2018-10-03] MEDS: Simvastatin 10 MG Tab PO SCH (21:00)
[2018-10-03] MEDS: Levofloxacin/Dextrose 5%-Water 750 MG in Premix Bag 1 BAG IV SCH (23:18)
[2018-10-03] MEDS: Enoxaparin 40 MG/0.4 ML Syringe SUBCUT SCH (23:24)
[2018-10-04] MEDS: Albuterol/Ipratropium 3.0-0.5 MG/3 ML Neb Soln NEB SCH ×6 (01:56→21:03)
[2018-10-04] MEDS: methylPREDNISolone Sodium Succinate 125 MG/2 ML SDV IVPUSH SCH ×2 (04:01→16:18)
[2018-10-04] MEDS: cloNIDine 0.1 MG Tab PO SCH ×3 (05:07→20:19)
[2018-10-04] MEDS: Verapamil 180 MG Tab.ER PO SCH (08:35)
[2018-10-04] MEDS: Escitalopram 10 MG Tab PO SCH (08:35)
[2018-10-04] MEDS: Venlafaxine 75 MG Cap.ER PO SCH (08:35)
[2018-10-04] MEDS: Prazosin 1 MG Cap PO SCH (08:36)
--- NOTE | 2018-10-04 10:11 | PCM.PN ---
- General Info Date of Service: 10/04/18 Admission Dx/Problem (Free Text): Admission Diagnosis/Problem Admission Diagnosis/Problem COPD with acute lower respiratory infection Subjective Update: Continues to feel poor today, mild improvement. Doesn't feel ready to go home. Dyspnea better, but not near baseline. No chest pain. Continues to require oxygen. Functional Status: Reports: Pain Controlled, Tolerating Diet, Ambulating, Urinating - Review of Systems General: Reports: Malaise. Denies: Fever HEENT: Reports: No Symptoms. Denies: Headaches, Sore Throat, Visual Changes Pulmonary: Reports: Shortness of Breath, Cough, Wheezing. Denies: Hemoptysis Cardiovascular: Reports: No Symptoms. Denies: Chest Pain, Palpitations Gastrointestinal: Reports: No Symptoms. Denies: Abdominal Pain, Nausea, Vomiting Genitourinary: Reports: No Symptoms Musculoskeletal: Reports: No Symptoms Skin: Reports: No Symptoms Neurological: Reports: No Symptoms Psychiatric: Reports: No Symptoms - Patient Data Vitals - Most Recent: Last Vital Signs Temp 97.4 F 10/04/18 08:00 Pulse 70 10/04/18 04:00 Resp 16 10/04/18 08:00 BP 186/96 H 10/04/18 08:36 Pulse Ox 96 10/04/18 09:08 Weight - Most Recent: 63.503 kg I&O - Last 24 Hours: Intake & Output 10/03/18 10/04/18 10/04/18 22:59 06:59 14:59 Intake Total 710 640 Output Total 250 900 Balance 460 -260 Lab Results Last 24 Hours: Laboratory Results - last 24 hr 10/04/18 10/04/18 Range/Units 05:23 05:23 WBC 15.27 H (4.0-11.0) K/uL RBC 4.64 (4.30-5.90) M/uL Hgb 13.3 (12.0-16.0) g/dL Hct 40.4 (36.0-46.0) % MCV 87.1 (80.0-98.0) fL MCH 28.7 (27.0-32.0) pg MCHC 32.9 (31.0-37.0) g/dL RDW Std Deviation 43.1 (28.0-62.0) fl RDW Coeff of Jamil 14 (11.0-15.0) % Plt Count 207 (150-400) K/uL MPV 9.20 (7.40-12.00) fL Neut % (Auto) 92.0 H (48.0-80.0) % Lymph % (Auto) 5.4 L (16.0-40.0) % [place] % (Auto) 2.5 (0.0-15.0) % Eos % (Auto) 0.0 (0.0-7.0) % Baso % (Auto) 0.1 (0.0-1.5) % Neut # (Auto) 14.1 H (1.4-5.7) K/uL Lymph # (Auto) 0.8 (0.6-2.4) K/uL [place] # (Auto) 0.4 (0.0-0.8) K/uL Eos # (Auto) 0.0 (0.0-0.7) K/uL Baso # (Auto) 0.0 (0.0-0.1) K/uL Nucleated RBC % 0.0 /100WBC Nucleated RBCs # 0 K/uL Sodium 136 (136-145) mmol/L Potassium 4.4 (3.5-5.1) mmol/L Chloride 101 (98-107) mmol/L Carbon Dioxide 25.8 (21.0-32.0) mmol/L BUN 27 H (7.0-18.0) mg/dL Creatinine 1.0 (0.6-1.0) mg/dL Est Cr Clr Drug Dosing 58.47 mL/min Estimated GFR (MDRD) 56.2 ml/min Glucose 150 H (74-106) mg/dL Calcium 9.1 (8.5-10.1) mg/dL Med Orders - Current: Current Medications Acetaminophen (Tylenol) 650 mg PO Q6H PRN PRN Reason: Pain Last Admin: 10/03/18 16:26 Dose: 650 mg Albuterol/Ipratropium (Duoneb 3.0-0.5 Mg/3 Ml) 3 ml NEB Q2H PRN PRN Reason: Shortness Of Breath/wheezing Last Admin: 10/02/18 21:47 Dose: 3 ml Albuterol/Ipratropium (Duoneb 3.0-0.5 Mg/3 Ml) 3 ml NEB Q4HRRT [facility] Last Admin: 10/04/18 09:08 Dose: 3 ml Clonidine HCl (Catapres) 0.1 mg PO BID [facility] Last Admin: 10/04/18 05:07 Dose: 0.1 mg Enoxaparin Sodium (Lovenox) 40 mg SUBCUT Q24H [facility] Last Admin: 10/03/18 23:24 Dose: 40 mg Escitalopram Oxalate (Lexapro) 10 mg PO DAILY [facility] Last Admin: 10/04/18 08:35 Dose: 10 mg Levofloxacin/Dextrose 750 mg/ (Premix) 150 mls @ 100 mls/hr IV Q24H [facility] Last Admin: 10/03/18 23:18 Dose: 100 mls/hr Methylprednisolone Sodium Succinate (Solu-Medrol) 125 mg IVPUSH Q12H [facility] Last Admin: 10/04/18 04:01 Dose: 125 mg Prazosin HCl (Minpress) 2 mg PO DAILY [facility] Last Admin: 10/04/18 08:36 Dose: 2 mg Simvastatin (Zocor) 10 mg PO BEDTIME [facility] Last Admin: 10/03/18 21:00 Dose: 10 mg Venlafaxine HCl (Effexor Xr) 75 mg PO DAILY [facility] Last Admin: 10/04/18 08:35 Dose: 75 mg Verapamil HCl (Calan Sr) 180 mg PO DAILY [facility] Last Admin: 10/04/18 08:35 Dose: 180 mg Discontinued Medications Albuterol (Proventil Neb Soln) 2.5 mg NEB ONETIME ONE Stop: 09/30/18 20:51 Last Admin: 09/30/18 21:07 Dose: 2.5 mg Albuterol/Ipratropium (Duoneb 3.0-0.5 Mg/3 Ml) 3 ml NEB ONETIME ONE Stop: 09/30/18 20:59 Last Admin: 09/30/18 20:50 Dose: 3 ml Albuterol/Ipratropium (Duoneb 3.0-0.5 Mg/3 Ml) 3 ml NEB Q6HRRT [facility] Last Admin: 10/03/18 11:11 Dose: 3 ml Clonidine HCl (Catapres) 0.1 mg PO DAILY [facility] Last Admin: 10/01/18 08:36 Dose: 0.1 mg Sodium Chloride (Normal Saline) 1,000 mls @ 125 mls/hr IV STAT [facility] Last Admin: 10/02/18 01:29 Dose: 125 mls/hr Piperacillin Sod/Tazobactam (Sod 3.375 gm/ Sodium Chloride) 50 mls @ 100 mls/ hr IV ONETIME ONE Stop: 09/30/18 22:27 Last Admin: 09/30/18 22:05 Dose: 100 mls/hr Levofloxacin/Dextrose 750 mg/ (Premix) 150 mls @ 100 mls/hr IV ONETIME ONE Stop: 09/30/18 23:37 Last Admin: 09/30/18 22:47 Dose: 100 mls/hr Piperacillin Sod/Tazobactam (Sod 3.375 gm/ Sodium Chloride) 50 mls @ 100 mls/ hr IV ONETIME ONE Stop: 09/30/18 22:46 Last Admin: 09/30/18 22:50 Dose: Not Given Methylprednisolone Sodium Succinate (Solu-Medrol) 125 mg IVPUSH ONETIME ONE Stop: 09/30/18 20:51 Last Admin: 09/30/18 20:58 Dose: 125 mg Methylprednisolone Sodium Succinate (Solu-Medrol) 125 mg IVPUSH Q6H [facility] Last Admin: 10/01/18 13:08 Dose: 125 mg Methylprednisolone Sodium Succinate (Solu-Medrol) 125 mg IVPUSH Q8H [facility] Last Admin: 10/01/18 15:49 Dose: Not Given Methylprednisolone Sodium Succinate (Solu-Medrol) 125 mg IVPUSH Q8H [facility] Last Admin: 10/02/18 04:45 Dose: 125 mg - Exam Quality Assessment: Supplemental Oxygen, DVT Prophylaxis General: Alert, Oriented, Cooperative HEENT: Pupils Equal, Mucous Membr. Moist/[place] Neck: Supple Lungs: Wheezing (throughout lung lerma, improved from previous day.). No: Normal Respiratory Effort (dyspnea with speech and acitivity), Rhonchi Cardiovascular: Regular Rate, Regular Rhythm, No Murmurs GI/Abdominal Exam: Normal Bowel Sounds, Soft, Non-Tender Extremities: Normal Inspection, Normal Range of Motion, Non-Tender Neurological: No New Focal Deficit Psy/Mental Status: Alert, Normal Affect, Normal Mood - Problem List & Annotations (1) COPD (chronic obstructive pulmonary disease) SNOMED Code(s): 77311735 Code(s): J44.9 - CHRONIC OBSTRUCTIVE PULMONARY DISEASE, UNSPECIFIED Status : Acute Current Visit: Yes Qualifiers: COPD type: COPD with acute exacerbation Qualified Code(s): J44.1 - Chronic obstructive pulmonary disease with (acute) exacerbation (2) Depression SNOMED Code(s): 50446324 Code(s): F32.9 - MAJOR DEPRESSIVE DISORDER, SINGLE EPISODE, UNSPECIFIED Status: Chronic Current Visit: No Qualifiers: Depression Type: unspecified Qualified Code(s): F32.9 - Major depressive disorder, single episode, unspecified (3) HTN (hypertension) SNOMED Code(s): 62148679 Code(s): I10 - ESSENTIAL (PRIMARY) HYPERTENSION Status: Chronic Current Visit: No Qualifiers: Hypertension type: essential hypertension Qualified Code(s): I10 - Essential (primary) hypertension - Problem List Review Problem List Initiated/Reviewed/Updated: Yes - My Orders Last 24 Hours: My Active Orders 10/03/18 11:19 Consult to Respiratory Therapy [Respiratory Care Assess and Treatment] [CONS] Routine 10/03/18 15:36 [place] Discontinue [Cardiac Monitoring Discontinue] [RC] Click to Edit 10/03/18 18:00 Albuterol/Ipratropium [DuoNeb 3.0-0.5 MG/3 ML] 3 ml NEB Q4HRRT - Plan Plan:: 63 yo female admitted for COPD exacerbation. 1. COPD exacerbation: Slow steady improvement noted. We will continue Solumedrol , duonebs and Levaquin. Wean oxygen as tolerated, remains on 1.5 L NC. RT consulted for COPD education. Continue inhalers 2. HTN: Elevated intermittently. Continue home medications VTE prophylaxis: Lovenox Dispo: 1-2 days pending improvement
[2018-10-04] MEDS: Acetaminophen 325 MG Tab PO PRN (19:01)
[2018-10-04] MEDS: Simvastatin 10 MG Tab PO SCH (20:19)
[2018-10-04] MEDS: Levofloxacin/Dextrose 5%-Water 750 MG in Premix Bag 1 BAG IV SCH (22:34)
[2018-10-04] MEDS: Enoxaparin 40 MG/0.4 ML Syringe SUBCUT SCH (22:34)
[2018-10-05] MEDS: Albuterol/Ipratropium 3.0-0.5 MG/3 ML Neb Soln NEB SCH ×4 (02:30→13:35)
[2018-10-05] MEDS: methylPREDNISolone Sodium Succinate 125 MG/2 ML SDV IVPUSH SCH (03:38)
[2018-10-05] MEDS: Verapamil 180 MG Tab.ER PO SCH (10:18)
[2018-10-05] MEDS: cloNIDine 0.1 MG Tab PO SCH (10:18)
[2018-10-05] MEDS: Venlafaxine 75 MG Cap.ER PO SCH (10:18)
[2018-10-05] MEDS: Escitalopram 10 MG Tab PO SCH (10:18)
[2018-10-05] MEDS: Prazosin 1 MG Cap PO SCH (10:32)
[2018-10-05 13:12] VITALS: BP 174/103
--- NOTE | 2018-10-05 13:25 | PCM.DCSUM1 ---
Discharge Summary - Discharge Data Discharge Date: 10/05/18 Discharge Disposition: Home, Self-Care 01 Condition: Fair - Patient Summary/Data Consults: Consultations 10/03/18 11:19 Consult to Respiratory Therapy [Respiratory Care Assess and Treatment] [CONS] Routine Hospital Course: 63 yo female with pmh of COPD who was admitted for COPD exacerbation. She presented with shortness of breath and productive cough for two weeks. WBC was 20,000 and CXR reported hyperexpanded lungs. She was treated with Solumedrol, duonebs and levaquin. Today patient is requesting discharge home. She is satting 90% on room air. She is to follow up with Dr. Bran. - Patient Instructions Diet: Usual Diet as Tolerated Activity: As Tolerated Notify Provider of: Fever - Discharge Plan Prescriptions/Med Rec: predniSONE [Prednisone] 40 mg PO DAILY #5 tablet Home Medications: Home Meds Albuterol [Proventil HFA] 1 puff INH QID PRN 09/22/18 [History] Albuterol/Ipratropium [DuoNeb 3.0-0.5 MG/3 ML] 3 ml NEB Q8HR PRN 09/22/18 [ History] Budesonide/Formoterol Fumarate [Symbicort 80-4.5 Mcg Inhaler] 1 puff IH DAILY [History] Prazosin HCl [Prazosin] 2 mg PO DAILY 09/22/18 [History] Simvastatin [Zocor] 10 mg PO BEDTIME 09/22/18 [History] Venlafaxine HCl [Venlafaxine ER] 75 mg PO DAILY 09/22/18 [History] cloNIDine [Catapres] 0.1 mg PO BID 09/22/18 [History] Escitalopram [Lexapro] 10 mg PO DAILY 09/30/18 [History] Verapamil [Calan SR] 180 mg PO DAILY 09/30/18 [History] predniSONE [Prednisone] 40 mg PO DAILY #5 tablet 10/05/18 [Rx] Referrals: Elda Bran MD [Physician] - 10/16/18 3:15 pm - Discharge Summary/Plan Comment DC Time >30 min.: No - Patient Data Vitals - Most Recent: Last Vital Signs Temp 36.1 C 10/05/18 12:00 Pulse 79 10/05/18 12:00 Resp 22 H 04/27/19 12:00 BP 174/103 H 10/05/18 12:00 Pulse Ox 90 L 10/05/18 12:00 Weight - Most Recent: 63.503 kg I&O - Last 24 hours: Intake & Output 10/04/18 10/05/18 10/05/18 22:59 06:59 14:59 Intake Total 250 50 Output Total 950 500 Balance -700 -450 Med Orders - Current: Current Medications Acetaminophen (Tylenol) 650 mg PO Q6H PRN PRN Reason: Pain Last Admin: 10/04/18 19:01 Dose: 650 mg Albuterol/Ipratropium (Duoneb 3.0-0.5 Mg/3 Ml) 3 ml NEB Q2H PRN PRN Reason: Shortness Of Breath/wheezing Last Admin: 10/02/18 21:47 Dose: 3 ml Albuterol/Ipratropium (Duoneb 3.0-0.5 Mg/3 Ml) 3 ml NEB Q4HRRT [facility] Last Admin: 10/05/18 09:28 Dose: 3 ml Clonidine HCl (Catapres) 0.1 mg PO BID [facility] Last Admin: 10/05/18 10:18 Dose: 0.1 mg Enoxaparin Sodium (Lovenox) 40 mg SUBCUT Q24H [facility] Last Admin: 10/04/18 22:34 Dose: 40 mg Escitalopram Oxalate (Lexapro) 10 mg PO DAILY [facility] Last Admin: 10/05/18 10:18 Dose: 10 mg Levofloxacin/Dextrose 750 mg/ (Premix) 150 mls @ 100 mls/hr IV Q24H [facility] Last Admin: 10/04/18 22:34 Dose: 100 mls/hr Methylprednisolone Sodium Succinate (Solu-Medrol) 125 mg IVPUSH Q12H [facility] Last Admin: 10/05/18 03:38 Dose: 125 mg Prazosin HCl (Minpress) 2 mg PO DAILY [facility] Last Admin: 10/05/18 10:32 Dose: 2 mg Simvastatin (Zocor) 10 mg PO BEDTIME [facility] Last Admin: 10/04/18 20:19 Dose: 10 mg Venlafaxine HCl (Effexor Xr) 75 mg PO DAILY [facility] Last Admin: 10/05/18 10:18 Dose: 75 mg Verapamil HCl (Calan Sr) 180 mg PO DAILY [facility] Last Admin: 10/05/18 10:18 Dose: 180 mg Discontinued Medications Albuterol (Proventil Neb Soln) 2.5 mg NEB ONETIME ONE Stop: 09/30/18 20:51 Last Admin: 09/30/18 21:07 Dose: 2.5 mg Albuterol/Ipratropium (Duoneb 3.0-0.5 Mg/3 Ml) 3 ml NEB ONETIME ONE Stop: 09/30/18 20:59 Last Admin: 09/30/18 20:50 Dose: 3 ml Albuterol/Ipratropium (Duoneb 3.0-0.5 Mg/3 Ml) 3 ml NEB Q6HRRT [facility] Last Admin: 10/03/18 11:11 Dose: 3 ml Clonidine HCl (Catapres) 0.1 mg PO DAILY [facility] Last Admin: 10/01/18 08:36 Dose: 0.1 mg Sodium Chloride (Normal Saline) 1,000 mls @ 125 mls/hr IV STAT [facility] Last Admin: 10/02/18 01:29 Dose: 125 mls/hr Piperacillin Sod/Tazobactam (Sod 3.375 gm/ Sodium Chloride) 50 mls @ 100 mls/ hr IV ONETIME ONE Stop: 09/30/18 22:27 Last Admin: 09/30/18 22:05 Dose: 100 mls/hr Levofloxacin/Dextrose 750 mg/ (Premix) 150 mls @ 100 mls/hr IV ONETIME ONE Stop: 09/30/18 23:37 Last Admin: 09/30/18 22:47 Dose: 100 mls/hr Piperacillin Sod/Tazobactam (Sod 3.375 gm/ Sodium Chloride) 50 mls @ 100 mls/ hr IV ONETIME ONE Stop: 09/30/18 22:46 Last Admin: 09/30/18 22:50 Dose: Not Given Methylprednisolone Sodium Succinate (Solu-Medrol) 125 mg IVPUSH ONETIME ONE Stop: 09/30/18 20:51 Last Admin: 09/30/18 20:58 Dose: 125 mg Methylprednisolone Sodium Succinate (Solu-Medrol) 125 mg IVPUSH Q6H [facility] Last Admin: 10/01/18 13:08 Dose: 125 mg Methylprednisolone Sodium Succinate (Solu-Medrol) 125 mg IVPUSH Q8H [facility] Last Admin: 10/01/18 15:49 Dose: Not Given Methylprednisolone Sodium Succinate (Solu-Medrol) 125 mg IVPUSH Q8H [facility] Last Admin: 10/02/18 04:45 Dose: 125 mg
== END 2018-10-05 14:20 | disposition home or self-care (01) | DRG 192 ==
LOC: MW.ED 20:47 → MW.MS 22:11
PROVIDERS: ADMIT Internal Medicine; ATTEND Internal Medicine
DX: J44.1 Chronic obstructive pulmonary disease with (acute) exacerbation (principal); I10 Essential (primary) hypertension; F41.9 Anxiety disorder, unspecified; F32.9 Major depressive disorder, single episode, unspecified; F17.210 Nicotine dependence, cigarettes, uncomplicated; Z79.899 Other long term (current) drug therapy; Z87.442 Personal history of urinary calculi; Z90.49 Acquired absence of other specified parts of digestive tract
CPT/HCPCS: 36415; 36600; 71045; 71045-26; 80048; 80053; 81003; 82550; 82803; 84484; 85025; 85379; 85610; 93005; 94640; 94667; 96361; 96365; 96367; 96375; 99285-25; A9270-GY; J1650; J1956; J2543; J2930; J7040; J7050; J7620-GY

== ENCOUNTER 2018-12-22 17:57 | Emergency (ER) | payer MEDICARE, MEDICAID ==
[2018-12-22] MEDS ORDERED: Sodium Chloride 0.9% 10 ML Syringe FLUSH PRN (18:18)
[2018-12-22] MEDS ORDERED: cefTRIAXone 1 GM in Premix Bag 1 BAG IV ONE (18:18)
[2018-12-22] MEDS ORDERED: Sodium Chloride 0.9% 2.5 ML Syringe FLUSH PRN (18:18)
[2018-12-22] MEDS ORDERED: Ketorolac 30 MG/ML SDV IVPUSH ONE (18:21)
[2018-12-22] MEDS ORDERED: Diphtheria/Tetanus Toxoids,Adult (Td) 0.5 ML Syringe IM ONE (18:21)
--- NOTE | 2018-12-22 18:22 | EDM.PDOC ---
ED HPI GENERAL MEDICAL PROBLEM - General Chief Complaint: Upper Extremity Injury/Pain Stated Complaint: LEFT HAND SWOLLEN Time Seen by Provider: 12/22/18 18:01 Source of Information: Reports: Patient History Limitations: Reports: No Limitations - History of Present Illness INITIAL COMMENTS - FREE TEXT/NARRATIVE: History of present illness: []Patient dropped an oxygen bottle on her left ankle 3 days ago and the next day developed left hand swelling, pain and redness. She has been having subjective fevers. Review of systems: As per history of present illness and below otherwise all systems reviewed and negative. Past medical history: As per history of present illness and as reviewed below otherwise noncontributory. Surgical history: As per history of present illness and as reviewed below otherwise noncontributory. Social history: No reported history of drug or alcohol abuse. Family history: As per history of present illness and as reviewed below otherwise noncontributory. Physical exam: General: Well developed, well nourished in NAD HEENT: Atraumatic, normocephalic, pupils reactive, negative for conjunctival pallor or scleral icterus, mucous membranes moist, throat clear, neck supple, nontender, trachea midline. Lungs: Clear to auscultation, breath sounds equal bilaterally, chest nontender. Heart: S1S2, regular, negative for clicks, rubs, or JVD. Abdomen: NABS, Soft, nondistended, nontender. Negative for masses or hepatosplenomegaly. Negative for costovertebral tenderness. Pelvis: Stable nontender. Genitourinary: Deferred. Rectal: Deferred. Extremities: Left medial ankle no swelling or decreased range of motion, left hand is edematous and erythematous tenderness with movement of her thumb she is able to move all fingers is brisk capillary refill and sensations intact., negative for cords or calf pain. Neurovascular unremarkable. Neuro: Awake, alert, oriented. Cranial nerves II through XII unremarkable. Cerebellum unremarkable. Motor and sensory unremarkable throughout. Exam nonfocal. Skin:warm and dry Diagnostics: X-ray left hand, ceftriaxone, blood cultures, CBC, tetanus update Therapeutics: ED Course: Impression: Prescriptions: Plan: Definitive disposition and diagnosis as appropriate pending reevaluation and review of above. left hand Pain Score (Numeric/FACES): 7 left ankle Pain Score (Numeric/FACES): 7 - Related Data Allergies Allergy/AdvReac Type Severity Reaction Status Date / Time No Known Allergies Allergy Verified 12/22/18 18:07 Home Meds: Home Meds Albuterol [Proventil HFA] 1 puff INH QID PRN 09/22/18 [History] Albuterol/Ipratropium [DuoNeb 3.0-0.5 MG/3 ML] 3 ml NEB Q8HR PRN 09/22/18 [ History] Budesonide/Formoterol Fumarate [Symbicort 80-4.5 Mcg Inhaler] 1 puff IH DAILY [History] Prazosin HCl [Prazosin] 2 mg PO DAILY 09/22/18 [History] Simvastatin [Zocor] 10 mg PO BEDTIME 09/22/18 [History] Venlafaxine HCl [Venlafaxine ER] 75 mg PO DAILY 09/22/18 [History] cloNIDine [Catapres] 0.1 mg PO BID 09/22/18 [History] Escitalopram [Lexapro] 10 mg PO DAILY 09/30/18 [History] Diclofenac Sodium [Voltaren] 75 mg PO BIDMEALS PRN #20 tab.cr 12/22/18 [Rx] Sulfamethoxazole/Trimethoprim [Bactrim Ds Tablet] 1 each PO BID #20 tablet 12/22 [Rx] Past Medical History - Past Health History Medical/Surgical History: Denies Medical/Surgical History HEENT History: Reports: None Cardiovascular History: Reports: Hypertension Respiratory History: Reports: COPD Gastrointestinal History: Reports: Diverticulosis Genitourinary History: Reports: Other (See Below) Other Genitourinary History: kidney stones SIGNAL PERSON History: Reports: None Musculoskeletal History: Reports: None Neurological History: Reports: None Psychiatric History: Reports: Addiction, Anxiety, Depression Endocrine/Metabolic History: Reports: None Hematologic History: Reports: None Immunologic History: Reports: None Oncologic (Cancer) History: Reports: None Dermatologic History: Reports: None - Infectious Disease History Infectious Disease History: Reports: Hepatitis A, Hepatitis B, Hepatitis C Other Infectious Disease History: unsure of which kind of hepatitis - Past Surgical History Head Surgeries/Procedures: Reports: None HEENT Surgical History: Reports: None Cardiovascular Surgical History: Reports: None Respiratory Surgical History: Reports: None GI Surgical History: Reports: Appendectomy Female Surgical History: Reports: None Endocrine Surgical History: Reports: None Neurological Surgical History: Reports: None Musculoskeletal Surgical History: Reports: Other (See Below) Other Musculoskeletal Surgeries/Procedures:: rt shoulder surg Oncologic Surgical History: Reports: None Dermatological Surgical History: Reports: None Social & Family History - Family History Family Medical History: Noncontributory - Tobacco Use Smoking Status *Q: Current Every Day Smoker Years of Tobacco use: 40 Packs/Tins Daily: 0.1 - Caffeine Use Caffeine Use: Reports: Coffee, Soda Caffeine Use Comment: 5 cups avg per day - Recreational Drug Use Recreational Drug Use: No Review of Systems - Review of Systems Review Of Systems: See Below ED EXAM, GENERAL - Physical Exam Exam: See Below Course - Vital Signs Last Recorded V/S: Last Vital Signs Temp 97.6 F 12/22/18 18:07 Pulse 87 12/22/18 18:07 Resp 20 12/22/18 18:07 BP 158/94 H 12/22/18 18:07 Pulse Ox 92 L 12/22/18 18:07 - Orders/Labs/Meds Orders: Active Orders 24 hr Category Date Time Status Vaccines to be Administered [RC] PER UNIT ROUTINE Care 12/22/18 18:22 Active CULTURE BLOOD [BC] Stat Lab 12/22/18 18:28 Received CULTURE BLOOD [BC] Stat Lab 12/22/18 18:36 Received Sodium Chloride 0.9% [Saline Flush] Med 12/22/18 18:18 Active 10 ml FLUSH ASDIRECTED PRN Sodium Chloride 0.9% [Saline Flush] Med 12/22/18 18:18 Active 2.5 ml FLUSH ASDIRECTED PRN Blood Culture x2 Reflex Set [OM.PC] Stat Oth 12/22/18 18:18 Ordered Saline Lock Insert [OM.PC] Stat Oth 12/22/18 18:18 Ordered Medication Orders Sodium Chloride (Saline Flush) 10 ml FLUSH ASDIRECTED PRN PRN Reason: Keep Vein Open Sodium Chloride (Saline Flush) 2.5 ml FLUSH ASDIRECTED PRN PRN Reason: Keep Vein Open Labs: Laboratory Tests 12/22/18 Range/Units 18:28 WBC 10.07 (4.0-11.0) K/uL RBC 4.56 (4.30-5.90) M/uL Hgb 12.9 (12.0-16.0) g/dL Hct 39.0 (36.0-46.0) % MCV 85.5 (80.0-98.0) fL MCH 28.3 (27.0-32.0) pg MCHC 33.1 (31.0-37.0) g/dL RDW Std Deviation 42.9 (28.0-62.0) fl RDW Coeff of Jamil 14 (11.0-15.0) % Plt Count 210 (150-400) K/uL MPV 9.30 (7.40-12.00) fL Neut % (Auto) 68.9 (48.0-80.0) % Lymph % (Auto) 21.6 (16.0-40.0) % [place] % (Auto) 7.0 (0.0-15.0) % Eos % (Auto) 2.3 (0.0-7.0) % Baso % (Auto) 0.2 (0.0-1.5) % Neut # (Auto) 6.9 H (1.4-5.7) K/uL Lymph # (Auto) 2.2 (0.6-2.4) K/uL [place] # (Auto) 0.7 (0.0-0.8) K/uL Eos # (Auto) 0.2 (0.0-0.7) K/uL Baso # (Auto) 0.0 (0.0-0.1) K/uL Nucleated RBC % 0.0 /100WBC Nucleated RBCs # 0 K/uL Meds: Medications Generic Name Dose Route Start Last Admin Trade Name Freq PRN Reason Stop Dose Admin Sodium Chloride 10 ml 12/22/18 18:18 Saline Flush FLUSH ASDIRECTED PRN Keep Vein Open Sodium Chloride 2.5 ml 12/22/18 18:18 Saline Flush FLUSH ASDIRECTED PRN Keep Vein Open Discontinued Medications Generic Name Dose Route Start Last Admin Trade Name Freq PRN Reason Stop Dose Admin Ceftriaxone Sodium/Dextrose 1 50 mls @ 100 mls/hr 12/22/18 18:18 12/22/18 18: 33 gm/ Premix IV 12/22/18 18:47 100 mls/hr ONETIME ONE Administration Ketorolac Tromethamine 15 mg 12/22/18 18:21 12/22/18 18:32 Toradol IVPUSH 12/22/18 18:22 15 mg ONETIME ONE Administration Tetanus/Diphtheria Toxoids 0.5 ml 12/22/18 18:21 12/22/18 18:33 Tenivac IM 12/22/18 18:22 0.5 ml .ONCE ONE Administration Departure - Departure Time of Disposition: 19:04 Disposition: Home, Self-Care 01 Condition: Good Clinical Impression: Cellulitis of left hand, Abrasion, left ankle, initial encounter - Discharge Information *PRESCRIPTION DRUG MONITORING PROGRAM REVIEWED*: No *COPY OF PRESCRIPTION DRUG MONITORING REPORT IN PATIENT KARIE: No Prescriptions: Diclofenac Sodium [Voltaren] 75 mg PO BIDMEALS PRN #20 tab.cr PRN Reason: Pain Sulfamethoxazole/Trimethoprim [Bactrim Ds Tablet] 1 each PO BID #20 tablet Referrals: Elda Bran MD [Primary Care Provider] - Forms: ED Department Discharge Additional Instructions: The following information is given to patients seen in the emergency department who are being discharged to home. This information is to outline your options for follow-up care. We provide all patients seen in our emergency department with a follow-up referral. The need for follow-up, as well as the timing and circumstances, are variable depending upon the specifics of your emergency department visit. If you don't have a primary care physician on staff, we will provide you with a referral. We always advise you to contact your personal physician following an emergency department visit to inform them of the circumstance of the visit and for follow-up with them and/or the need for any referrals to a consulting specialist. The emergency department will also refer you to a specialist when appropriate. This referral assures that you have the opportunity for follow-up care with a specialist. All of these measure are taken in an effort to provide you with optimal care, which includes your follow-up. Under all circumstances we always encourage you to contact your private physician who remains a resource for coordinating your care. When calling for follow-up care, please make the office aware that this follow-up is from your recent emergency room visit. If for any reason you are refused follow-up, please contact the [facility] Emergency Department at and asked to speak to the emergency department charge nurse. Take meds as directed, follow up with your primary care physician, return to ER if symptoms worsen or change. [facility] [address] [place] [id number] - My Orders Last 24 Hours: My Active Orders 12/22/18 18:18 Sodium Chloride 0.9% [Saline Flush] 10 ml FLUSH ASDIRECTED PRN Sodium Chloride 0.9% [Saline Flush] 2.5 ml FLUSH ASDIRECTED PRN Blood Culture x2 Reflex Set [OM.PC] Stat Saline Lock Insert [OM.PC] Stat 12/22/18 18:22 Vaccines to be Administered [RC] PER UNIT ROUTINE 12/22/18 18:28 CULTURE BLOOD [BC] Stat 12/22/18 18:36 CULTURE BLOOD [BC] Stat - Assessment/Plan Last 24 Hours: My Active Orders 12/22/18 18:18 Sodium Chloride 0.9% [Saline Flush] 10 ml FLUSH ASDIRECTED PRN Sodium Chloride 0.9% [Saline Flush] 2.5 ml FLUSH ASDIRECTED PRN Blood Culture x2 Reflex Set [OM.PC] Stat Saline Lock Insert [OM.PC] Stat 12/22/18 18:22 Vaccines to be Administered [RC] PER UNIT ROUTINE 12/22/18 18:28 CULTURE BLOOD [BC] Stat 12/22/18 18:36 CULTURE BLOOD [BC] Stat
--- NOTE | 2018-12-22 18:59 | CR ---
Indication: Pain and swelling. Findings: : Three views of the left hand show no evidence of acute fracture or dislocation. Soft tissue swelling over the dorsum of the hand. No other bony or soft tissue abnormalities identified. Dictated by Laron Rosado MD @ 12/22/2018 6:57:14 PM Dictated by: Laron Rosado MD @ 12/22/2018 18:57:36 (Electronically Signed)
[2018-12-23 00:03] VITALS: BP 126/86
== END 2018-12-22 19:50 | disposition home or self-care (01) ==
LOC: MW.ED 17:57
DX: S90.512A Abrasion, left ankle, initial encounter (principal); L03.114 Cellulitis of left upper limb; I10 Essential (primary) hypertension; F41.9 Anxiety disorder, unspecified; F32.9 Major depressive disorder, single episode, unspecified; J44.9 Chronic obstructive pulmonary disease, unspecified; F17.210 Nicotine dependence, cigarettes, uncomplicated; Z79.899 Other long term (current) drug therapy; Z90.49 Acquired absence of other specified parts of digestive tract; W20.8XXA Other cause of strike by thrown, projected or falling object, initial encounter
CPT/HCPCS: 36415; 73130; 85025; 87040; 90471; 90714; 96365; 96375; 99283; A4217; J0696; J1885

== ENCOUNTER 2019-04-01 19:03 | Emergency (ER) | payer MEDICARE, MEDICAID ==
--- NOTE | 2019-04-01 19:46 | EDM.PDOC ---
ED HPI GENERAL MEDICAL PROBLEM - General Chief Complaint: Respiratory Problem Stated Complaint: MEDICAL CLEARANCE Time Seen by Provider: 04/01/19 19:45 Source of Information: Reports: Patient - History of Present Illness INITIAL COMMENTS - FREE TEXT/NARRATIVE: HISTORY AND PHYSICAL: History of present illness: Patient is a 63-year-old female presents to the ED with maritime officer for medical clearance. Patient has no complaints at this time other than needing inhalers and oxygen for COPD. Patient is on 2.5L O2 24 hours per day and does not have enough oxygen in her tank for an overnight stay in retirement. Officer states they need a kit to do an etoh level as she refused breathalyzer test. Police will book patient tonight then release her home tonight so she will not need refills or oxygen at this time. Review of systems: As per history of present illness and below otherwise all systems reviewed and negative. Past medical history: As per history of present illness and as reviewed below otherwise noncontributory. Surgical history: As per history of present illness and as reviewed below otherwise noncontributory. Social history: No reported history of drug or alcohol abuse. Family history: As per history of present illness and as reviewed below otherwise noncontributory. Physical exam: General: Patient sitting comfortably in no acute distress and nontoxic appearing HEENT: Atraumatic, normocephalic, pupils reactive, negative for conjunctival pallor or scleral icterus, mucous membranes moist, throat clear, neck supple, nontender, trachea midline. No meningeal signs. Lungs: Clear to auscultation, breath sounds equal bilaterally, chest nontender. Heart: S1S2, regular, negative for clicks, rubs, or overt murmur. Abdomen: Soft, nondistended, nontender. Negative for masses or hepatosplenomegaly. Negative for costovertebral tenderness. No rigidity, rebound , guarding. Pelvis: Stable nontender. Genitourinary: Deferred. Rectal: Deferred. Extremities: Atraumatic, negative for cords or calf pain. Neurovascular unremarkable. Neuro: Awake, alert, oriented. Cranial nerves II through XII unremarkable. Cerebellum unremarkable. Motor and sensory unremarkable throughout. Exam nonfocal. Notes: Diagnostics: none Therapeutics: [] Prescriptions: Impression: Medical clearance for incarceration Plan: Follow up with Primary care provider Return to ED as needed as discussed Definitive disposition and diagnosis as appropriate pending reevaluation and review of above. - Related Data Allergies Allergy/AdvReac Type Severity Reaction Status Date / Time No Known Allergies Allergy Verified 12/22/18 18:07 Home Meds: Home Meds Albuterol [Proventil HFA] 1 puff INH QID PRN 09/22/18 [History] Albuterol/Ipratropium [DuoNeb 3.0-0.5 MG/3 ML] 3 ml NEB Q8HR PRN 09/22/18 [ History] Budesonide/Formoterol Fumarate [Symbicort 80-4.5 MCG] 1 puff IH DAILY 09/22/18 [ History] Prazosin HCl [Prazosin] 2 mg PO DAILY 09/22/18 [History] Simvastatin [Zocor] 10 mg PO BEDTIME 09/22/18 [History] Venlafaxine HCl [Venlafaxine ER] 75 mg PO DAILY 09/22/18 [History] cloNIDine [Catapres] 0.1 mg PO BID 09/22/18 [History] Escitalopram [Lexapro] 10 mg PO DAILY 09/30/18 [History] Diclofenac Sodium [Voltaren] 75 mg PO BIDMEALS PRN #20 tab.cr 12/22/18 [Rx] Sulfamethoxazole/Trimethoprim [Bactrim Ds Tablet] 1 each PO BID #20 tablet 12/22 [Rx] Past Medical History - Past Health History Medical/Surgical History: Denies Medical/Surgical History HEENT History: Reports: None Cardiovascular History: Reports: Hypertension Respiratory History: Reports: COPD Gastrointestinal History: Reports: Diverticulosis Genitourinary History: Reports: Other (See Below) Other Genitourinary History: kidney stones INSURANCE RATER History: Reports: None Musculoskeletal History: Reports: None Neurological History: Reports: None Psychiatric History: Reports: Addiction, Anxiety, Depression Endocrine/Metabolic History: Reports: None Hematologic History: Reports: None Immunologic History: Reports: None Oncologic (Cancer) History: Reports: None Dermatologic History: Reports: None - Infectious Disease History Infectious Disease History: Reports: Hepatitis A, Hepatitis B, Hepatitis C Other Infectious Disease History: unsure of which kind of hepatitis - Past Surgical History Head Surgeries/Procedures: Reports: None HEENT Surgical History: Reports: None Cardiovascular Surgical History: Reports: None Respiratory Surgical History: Reports: None GI Surgical History: Reports: Appendectomy Female Surgical History: Reports: None Endocrine Surgical History: Reports: None Neurological Surgical History: Reports: None Musculoskeletal Surgical History: Reports: Other (See Below) Other Musculoskeletal Surgeries/Procedures:: rt shoulder surg Oncologic Surgical History: Reports: None Dermatological Surgical History: Reports: None Social & Family History - Family History Family Medical History: Noncontributory - Caffeine Use Caffeine Use: Reports: Coffee, Soda Caffeine Use Comment: 5 cups avg per day ED ROS GENERAL - Review of Systems Review Of Systems: ROS reveals no pertinent complaints other than HPI. ED EXAM, GENERAL - Physical Exam Exam: See Below (see dictation) Departure - Departure Time of Disposition: 19:45 Disposition: Home, Self-Care 01 Condition: Good Clinical Impression: Encounter for medical screening examination - Discharge Information Referrals: PCP,None [Primary Care Provider] - Forms: ED Department Discharge Additional Instructions: The following information is given to patients seen in the emergency department who are being discharged to home. This information is to outline your options for follow-up care. We provide all patients seen in our emergency department with a follow-up referral. The need for follow-up, as well as the timing and circumstances, are variable depending upon the specifics of your emergency department visit. If you don't have a primary care physician on staff, we will provide you with a referral. We always advise you to contact your personal physician following an emergency department visit to inform them of the circumstance of the visit and for follow-up with them and/or the need for any referrals to a consulting specialist. The emergency department will also refer you to a specialist when appropriate. This referral assures that you have the opportunity for follow-up care with a specialist. All of these measure are taken in an effort to provide you with optimal care, which includes your follow-up. Under all circumstances we always encourage you to contact your private physician who remains a resource for coordinating your care. When calling for follow-up care, please make the office aware that this follow-up is from your recent emergency room visit. If for any reason you are refused follow-up, please contact the [facility] Emergency Department at and asked to speak to the emergency department charge nurse. [facility] Primary [facility] [address] [place] [address] [id number] [address] [address] Follow up with Primary care provider Return to ED as needed as discussed
[2019-04-01 20:53] VITALS: BP 225/118; PULSE 84
== END 2019-04-01 20:59 | disposition home or self-care (01) ==
LOC: MW.ED 19:03
DX: Z02.89 Encounter for other administrative examinations (principal); J44.9 Chronic obstructive pulmonary disease, unspecified; I10 Essential (primary) hypertension; F41.9 Anxiety disorder, unspecified; F32.9 Major depressive disorder, single episode, unspecified; Z79.899 Other long term (current) drug therapy; Z79.51 Long term (current) use of inhaled steroids
CPT/HCPCS: 93005; 99282; 99283-25

== ENCOUNTER 2019-05-19 09:39 | Inpatient (IN) | payer MEDICAID, MEDICARE ==
[2019-05-19] MEDS ORDERED: Albuterol/Ipratropium 3.0-0.5 MG/3 ML Neb Soln ONE ×2 (09:42→10:01)
[2019-05-19] MEDS ORDERED: methylPREDNISolone Sodium Succinate 125 MG/2 ML SDV IVPUSH ONE ×2 (09:47→10:30)
--- NOTE | 2019-05-19 09:48 | EDM.PDOC ---
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 Past medical history: As per history of present illness and as reviewed below otherwise noncontributory. Surgical history: As per history of present illness and as reviewed below otherwise noncontributory. Social history: No reported history of drug or alcohol abuse. Family history: As per history of present illness and as reviewed below otherwise noncontributory. Physical exam: HEENT: Atraumatic, normocephalic, pupils reactive, negative for conjunctival pallor or scleral icterus, mucous membranes moist, throat clear, neck supple, nontender, trachea midline. Lungs: On arrivawheeze throughout, breath sounds equal bilaterally, chest nontender. Improved with DuoNeb and Solu-Medrol Heart: S1S2, regular, negative for clicks, rubs, or JVD. Abdomen: Soft, nondistended, nontender. Negative for masses or hepatosplenomegaly. Negative for costovertebral tenderness. Pelvis: Stable nontender. Genitourinary: Deferred. Rectal: Deferred. Extremities: Atraumatic, negative for cords or calf pain. Neurovascular unremarkable. Neuro: Awake, alert, oriented. Cranial nerves II through XII unremarkable. Cerebellum unremarkable. Motor and sensory unremarkable throughout. Exam nonfocal. Diagnostics: [CBC CMP troponin UA EKG Chest 1 view ] Therapeutics: [ saline neb Solu-Medrol IV ] vasotec Impression: []C OPD exacerbation Oxygen dependence Hypertension Chronic history of baseline Definitive disposition and diagnosis as appropriate pending reevaluation and review of above. chest pain when breathing Pain Score (Numeric/FACES): 5 - Related Data Allergies Allergy/AdvReac Type Severity Reaction Status Date / Time No Known Allergies Allergy Verified 12/22/18 18:07 Home Meds: Home Meds Albuterol [Proventil HFA] 1 puff INH QID PRN 09/22/18 [History] Albuterol/Ipratropium [DuoNeb 3.0-0.5 MG/3 ML] 3 ml NEB Q8HR PRN 09/22/18 [ History] Budesonide/Formoterol Fumarate [Symbicort 80-4.5 MCG] 1 puff IH DAILY 09/22/18 [ History] Prazosin HCl [Prazosin] 2 mg PO DAILY 09/22/18 [History] Simvastatin [Zocor] 10 mg PO BEDTIME 09/22/18 [History] Venlafaxine HCl [Venlafaxine ER] 75 mg PO DAILY 09/22/18 [History] cloNIDine [Catapres] 0.1 mg PO BID 09/22/18 [History] Escitalopram [Lexapro] 10 mg PO DAILY 09/30/18 [History] Diclofenac Sodium [Voltaren] 75 mg PO BIDMEALS PRN #20 tab.cr 12/22/18 [Rx] Sulfamethoxazole/Trimethoprim [Bactrim Ds Tablet] 1 each PO BID #20 tablet 12/22 [Rx] Past Medical History - Past Health History Medical/Surgical History: Denies Medical/Surgical History HEENT History: Reports: None Cardiovascular History: Reports: Hypertension Respiratory History: Reports: COPD, Other (See Below) Other Respiratory History: Home O2 @ 2LPM Gastrointestinal History: Reports: Diverticulosis Genitourinary History: Reports: Other (See Below) Other Genitourinary History: kidney stones 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 History: Reports: None Musculoskeletal History: Reports: None Neurological History: Reports: None Psychiatric History: Reports: Addiction, Anxiety, Depression Endocrine/Metabolic History: Reports: None Hematologic History: Reports: None Immunologic History: Reports: None Oncologic (Cancer) History: Reports: None Dermatologic History: Reports: None - Infectious Disease History Infectious Disease History: Reports: Hepatitis A, Hepatitis B, Hepatitis C Other Infectious Disease History: unsure of which kind of hepatitis - Past Surgical History Head Surgeries/Procedures: Reports: None HEENT Surgical History: Reports: None Cardiovascular Surgical History: Reports: None Respiratory Surgical History: Reports: None GI Surgical History: Reports: Appendectomy Female Surgical History: Reports: None Endocrine Surgical History: Reports: None Neurological Surgical History: Reports: None Musculoskeletal Surgical History: Reports: Other (See Below) Other Musculoskeletal Surgeries/Procedures:: rt shoulder surg Oncologic Surgical History: Reports: None Dermatological Surgical History: Reports: None Social & Family History - Family History Family Medical History: Noncontributory - Caffeine Use Caffeine Use: Reports: Coffee, Soda Caffeine Use Comment: 5 cups avg per day ED ROS GENERAL - Review of Systems Review Of Systems: See Below ED EXAM, GENERAL - Physical Exam Exam: See Below Course - Vital Signs Last Recorded V/S: Last Vital Signs Temp 97.4 F 05/19/19 09:47 Pulse 77 05/19/19 11:38 Resp 18 05/19/19 11:38 BP 186/104 H 05/19/19 11:38 Pulse Ox 98 05/19/19 11:38 - Orders/Labs/Meds Orders: Active Orders 24 hr Category Date Time Status EKG Documentation Completion [RC] STAT Care 05/19/19 09:58 Active RT Aerosol Therapy [RC] ASDIRECTED Care 05/19/19 10:03 Active RT Aerosol Therapy [RC] ASDIRECTED Care 05/19/19 11:32 Active Sodium Chloride 0.9% [Normal Saline] 1,000 ml Med 05/19/19 11:30 Active IV STAT cloNIDine [Catapres] Med 05/19/19 11:39 Once 0.1 mg PO ONETIME ONE Medication Orders Clonidine HCl (Catapres) 0.1 mg PO ONETIME ONE Stop: 05/19/19 11:40 Sodium Chloride (Normal Saline) 1,000 mls @ 125 mls/hr IV STAT YASIR Last Admin: 05/19/19 11:30 Dose: 125 mls/hr Labs: Laboratory Tests 05/19/19 05/19/19 05/19/19 Range/Units 09:50 09:50 09:50 WBC 11.29 H (4.0-11.0) K/uL RBC 4.88 (4.30-5.90) M/uL Hgb 13.8 (12.0-16.0) g/dL Hct 42.1 (36.0-46.0) % MCV 86.3 (80.0-98.0) fL MCH 28.3 (27.0-32.0) pg MCHC 32.8 (31.0-37.0) g/dL RDW Std Deviation 41.7 (28.0-62.0) fl RDW Coeff of Jamil 13 (11.0-15.0) % Plt Count 226 (150-400) K/uL MPV 9.70 (7.40-12.00) fL Neut % (Auto) 65.6 (48.0-80.0) % Lymph % (Auto) 25.2 (16.0-40.0) % Sutter % (Auto) 7.2 (0.0-15.0) % Eos % (Auto) 1.7 (0.0-7.0) % Baso % (Auto) 0.3 (0.0-1.5) % Neut # (Auto) 7.4 H (1.4-5.7) K/uL Lymph # (Auto) 2.8 H (0.6-2.4) K/uL Sutter # (Auto) 0.8 (0.0-0.8) K/uL Eos # (Auto) 0.2 (0.0-0.7) K/uL Baso # (Auto) 0.0 (0.0-0.1) K/uL Nucleated RBC % 0.0 /100WBC Nucleated RBCs # 0 K/uL INR 1.01 Sodium 138 (136-145) mmol/L Potassium 4.2 (3.5-5.1) mmol/L Chloride 102 (98-107) mmol/L Carbon Dioxide 24.9 (21.0-32.0) mmol/L BUN 17 (7.0-18.0) mg/dL Creatinine 1.1 H (0.6-1.0) mg/dL Est Cr Clr Drug Dosing 53.16 mL/min Estimated GFR (MDRD) 50.3 ml/min Glucose 102 (74-106) mg/dL Calcium 9.1 (8.5-10.1) mg/dL Total Bilirubin 0.4 (0.2-1.0) mg/dL AST 22 (15-37) IU/L ALT 17 (14-63) IU/L Alkaline Phosphatase 100 (46-116) U/L Troponin I < 0.050 (0.000-0.056) ng/mL Total Protein 8.1 (6.4-8.2) g/dL Albumin 4.1 (3.4-5.0) g/dL Globulin 4.0 (2.6-4.0) g/dL Albumin/Globulin Ratio 1.0 (0.9-1.6) Urine Color Urine Appearance Urine pH (5.0-8.0) Ur Specific [place] (1.001-1.035) Urine Protein (NEGATIVE) mg/dL Urine Glucose (UA) (NEGATIVE) mg/dL Urine Ketones (NEGATIVE) mg/dL Urine Occult Blood (NEGATIVE) Urine Nitrite (NEGATIVE) Urine Bilirubin (NEGATIVE) Urine Urobilinogen (<2.0) EU/dL Ur Leukocyte Esterase (NEGATIVE) 05/19/19 Range/Units 10:49 WBC (4.0-11.0) K/uL RBC (4.30-5.90) M/uL Hgb (12.0-16.0) g/dL Hct (36.0-46.0) % MCV (80.0-98.0) fL MCH (27.0-32.0) pg MCHC (31.0-37.0) g/dL RDW Std Deviation (28.0-62.0) fl RDW Coeff of Jamil (11.0-15.0) % Plt Count (150-400) K/uL MPV (7.40-12.00) fL Neut % (Auto) (48.0-80.0) % Lymph % (Auto) (16.0-40.0) % Sutter % (Auto) (0.0-15.0) % Eos % (Auto) (0.0-7.0) % Baso % (Auto) (0.0-1.5) % Neut # (Auto) (1.4-5.7) K/uL Lymph # (Auto) (0.6-2.4) K/uL Sutter # (Auto) (0.0-0.8) K/uL Eos # (Auto) (0.0-0.7) K/uL Baso # (Auto) (0.0-0.1) K/uL Nucleated RBC % /100WBC Nucleated RBCs # K/uL INR Sodium (136-145) mmol/L Potassium (3.5-5.1) mmol/L Chloride (98-107) mmol/L Carbon Dioxide (21.0-32.0) mmol/L BUN (7.0-18.0) mg/dL Creatinine (0.6-1.0) mg/dL Est Cr Clr Drug Dosing mL/min Estimated GFR (MDRD) ml/min Glucose (74-106) mg/dL Calcium (8.5-10.1) mg/dL Total Bilirubin (0.2-1.0) mg/dL AST (15-37) IU/L ALT (14-63) IU/L Alkaline Phosphatase (46-116) U/L Troponin I (0.000-0.056) ng/mL Total Protein (6.4-8.2) g/dL Albumin (3.4-5.0) g/dL Globulin (2.6-4.0) g/dL Albumin/Globulin Ratio (0.9-1.6) Urine Color YELLOW Urine Appearance CLEAR Urine pH 6.0 (5.0-8.0) Ur Specific [place] 1.015 (1.001-1.035) Urine Protein NEGATIVE (NEGATIVE) mg/dL Urine Glucose (UA) NEGATIVE (NEGATIVE) mg/dL Urine Ketones NEGATIVE (NEGATIVE) mg/dL Urine Occult Blood NEGATIVE (NEGATIVE) Urine Nitrite NEGATIVE (NEGATIVE) Urine Bilirubin NEGATIVE (NEGATIVE) Urine Urobilinogen 0.2 (<2.0) EU/dL Ur Leukocyte Esterase NEGATIVE (NEGATIVE) Meds: Medications Generic Name Dose Route Start Last Admin Trade Name Freq PRN Reason Stop Dose Admin Clonidine HCl 0.1 mg 05/19/19 11:39 Catapres PO 05/19/19 11:40 ONETIME ONE Sodium Chloride 1,000 mls @ 125 mls/hr 05/19/19 11:30 05/19/19 11:30 Normal Saline IV 125 mls/hr STAT YASIR Administration Discontinued Medications Generic Name Dose Route Start Last Admin Trade Name Freq PRN Reason Stop Dose Admin Albuterol 2.5 mg 05/19/19 11:32 Proventil Neb Soln NEB 05/19/19 11:33 ONETIME ONE Albuterol/Ipratropium Confirm 05/19/19 09:42 05/19/19 09:55 Duoneb 3.0-0.5 Mg/3 Ml Administered 05/19/19 09:43 3 ml Dose Administration 3 ml .ROUTE .STK-MED ONE Albuterol/Ipratropium 3 ml 05/19/19 10:02 05/19/19 10:04 Duoneb 3.0-0.5 Mg/3 Ml NEB 05/19/19 10:03 3 ml ONETIME ONE Administration Albuterol/Ipratropium Confirm 05/19/19 10:01 05/19/19 10:05 Duoneb 3.0-0.5 Mg/3 Ml Administered 05/19/19 10:02 Not Given Dose 3 ml .ROUTE .STK-MED ONE Enalaprilat 1.25 mg 05/19/19 11:20 05/19/19 11:31 Vasotec Iv IVPUSH 05/19/19 11:21 1.25 mg ONETIME ONE Administration Methylprednisolone Sodium Succinate 125 mg 05/19/19 09:47 05/19/19 09:55 Solu-Medrol IVPUSH 05/19/19 09:48 125 mg ONETIME ONE Administration Methylprednisolone Sodium Succinate 125 mg 05/19/19 10:30 05/19/19 10:42 Solu-Medrol IVPUSH 05/19/19 10:31 125 mg ONETIME ONE Administration Departure - Departure Time of Disposition: 11:40 Disposition: Admitted As Inpatient 67 Condition: Poor Clinical Impression: COPD exacerbation - Discharge Information Referrals: Elda Bran MD [Primary Care Provider] - Forms: ED Department Discharge - My Orders Last 24 Hours: My Active Orders 05/19/19 09:58 EKG Documentation Completion [RC] STAT 05/19/19 10:03 RT Aerosol Therapy [RC] ASDIRECTED 05/19/19 11:30 Sodium Chloride 0.9% [Normal Saline] 1,000 ml IV STAT 05/19/19 11:32 RT Aerosol Therapy [RC] ASDIRECTED 05/19/19 11:39 cloNIDine [Catapres] 0.1 mg PO ONETIME ONE - Assessment/Plan Last 24 Hours: My Active Orders 05/19/19 09:58 EKG Documentation Completion [RC] STAT 05/19/19 10:03 RT Aerosol Therapy [RC] ASDIRECTED 05/19/19 11:30 Sodium Chloride 0.9% [Normal Saline] 1,000 ml IV STAT 05/19/19 11:32 RT Aerosol Therapy [RC] ASDIRECTED 05/19/19 11:39 cloNIDine [Catapres] 0.1 mg PO ONETIME ONE
[2019-05-19] MEDS ORDERED: Albuterol/Ipratropium 3.0-0.5 MG/3 ML Neb Soln NEB ONE (10:02)
--- NOTE | 2019-05-19 10:27 | CR ---
EXAM DATE: 05/19/19 PATIENT'S AGE: 63 Chest: Portable view of the chest was obtained in AP projection. Comparison: Prior chest x-ray 09/30/18 as well as prior chest CT exam of . Heart size and mediastinum are normal. Lungs are hyperinflated compatible with emphysematous change. No acute parenchymal process is seen. Heart size and mediastinum are normal. Impression: 1. Emphysematous change. 2. Nothing acute is appreciated on AP portable chest x-ray. Diagnostic code #2 This report was dictated in [place] Standard Time Report Signed by Proxy. TELLY
[2019-05-19 10:45] LABS: BLOOD UREA NITROGEN,BUN 17 mg/dL (7.0-18.0); CARBON DIOXIDE,CO2 24.9 mmol/L (21.0-32.0); CHLORIDE,CL 102 mmol/L (98-107); GLUCOSE RANDOM 102 mg/dL (74-106); POTASSIUM,K 4.2 mmol/L (3.5-5.1); SODIUM,NA 138 mmol/L (136-145)
[2019-05-19] MEDS ORDERED: Enalaprilat 1.25 MG/ML SDV IVPUSH ONE (11:20)
[2019-05-19] MEDS: Sodium Chloride 0.9% 1,000 ML IV SCH ×2 (11:30→21:15)
[2019-05-19] MEDS ORDERED: Albuterol 0.083% 2.5 MG/3 ML Neb Soln NEB ONE (11:32)
[2019-05-19] MEDS ORDERED: cloNIDine 0.1 MG Tab PO ONE (11:39)
[2019-05-19] MEDS ORDERED: Ondansetron 4 MG Tab.DIS PO PRN (12:20)
[2019-05-19] MEDS ORDERED: Ondansetron 4 MG/2 ML SDV IVPUSH PRN (12:20)
--- NOTE | 2019-05-19 12:20 | PCM.HP.2 ---
<Evangelist Vernon M - Last Filed: 05/19/19 18:08> H&P History of Present Illness - General Date of Service: 05/19/19 Admit Problem/Dx: Admission Diagnosis/Problem Admission Diagnosis/Problem COPD, Moderate chronic obstructive pulmonary disease Source of Information: Patient History Limitations: Reports: No Limitations - History of Present Illness Initial Comments - Free Text/Narative: 63-year-old female presented to ER with complaints of shortness of breath. She has a PMH of COPD, HTN, Hep C, anxiety and panic attacks. Patient reports that for the past week she has had to increase her home oxygen from 2 L to 3L and she has been coughing for the past few days. Her cough is productive of green/ whitish colored sputum. She had been taking her home inhalers but they have not seemed to help. Furthermore, she reports that last night part of her hamburger "went down the wrong pipe" and worsened her breathing even more. She reports having an occasional headache and nausea. She also reports urinating more frequently over the past few weeks. She denies fevers, chills, chest pain, vomiting, diarrhea, abdominal pain, blood in urine, pain when urinating, blood in stool, hemoptysis or leg swelling. Quit tobacco 5 years ago. Currently drinks alcohol 1 beer every 2-3 days. Denies illicit drug use. In the ER, patient was requiring 4 L of oxygen, received duonebs x3 and solumedrol 125 mg x2. WBC was 11.29. Creatinine 1.1. She was given her home dose of enalapril. CXR showed emphysema but no acute processes. UA was unremarkable. Patient admitted for further evaluation. chest pain when breathing Pain Score (Numeric/FACES): 5 - Related Data Allergies/Adverse Reactions: Allergies Allergy/AdvReac Type Severity Reaction Status Date / Time No Known Allergies Allergy Verified 05/19/19 13:48 Home Medications: Home Meds Albuterol [Proventil HFA] 1 puff INH QID PRN 09/22/18 [History] Albuterol/Ipratropium [DuoNeb 3.0-0.5 MG/3 ML] 3 ml NEB Q8HR PRN 09/22/18 [ History] Budesonide/Formoterol Fumarate [Symbicort 80-4.5 MCG] 1 puff IH BID 09/22/18 [ History] Prazosin HCl [Prazosin] 2 mg PO DAILY 09/22/18 [History] Simvastatin [Zocor] 10 mg PO BEDTIME 09/22/18 [History] Venlafaxine HCl [Venlafaxine ER] 75 mg PO DAILY 09/22/18 [History] cloNIDine [Catapres] 0.1 mg PO BID 09/22/18 [History] Escitalopram [Lexapro] 10 mg PO DAILY 09/30/18 [History] Fluticasone/Salmeterol [Advair 500-50] 1 puff IH DAILY 05/19/19 [History] Umeclidinium Imbler [Incruse Ellipta*] 1 puff DAILY 05/19/19 [History] Varenicline Tartrate [Chantix] 1 mg PO BID 05/19/19 [History] Past Medical History - Past Health History Medical/Surgical History: Denies Medical/Surgical History HEENT History: Reports: None Cardiovascular History: Reports: Hypertension Respiratory History: Reports: COPD, Other (See Below) Other Respiratory History: Home O2 @ 2LPM Gastrointestinal History: Reports: Diverticulosis Genitourinary History: Reports: Other (See Below) Other Genitourinary History: kidney stones [employer]IED [employer]ICIAN History: Reports: None Musculoskeletal History: Reports: None Neurological History: Reports: None Psychiatric History: Reports: Addiction, Anxiety, Depression Endocrine/Metabolic History: Reports: None Hematologic History: Reports: None Immunologic History: Reports: None Oncologic (Cancer) History: Reports: None Dermatologic History: Reports: None - Infectious Disease History Infectious Disease History: Reports: Hepatitis A, Hepatitis B, Hepatitis C Other Infectious Disease History: unsure of which kind of hepatitis - Past Surgical History Head Surgeries/Procedures: Reports: None HEENT Surgical History: Reports: None Cardiovascular Surgical History: Reports: None Respiratory Surgical History: Reports: None GI Surgical History: Reports: Appendectomy Female Surgical History: Reports: None Endocrine Surgical History: Reports: None Neurological Surgical History: Reports: None Musculoskeletal Surgical History: Reports: Other (See Below) Other Musculoskeletal Surgeries/Procedures:: rt shoulder surg Oncologic Surgical History: Reports: None Dermatological Surgical History: Reports: None Social & Family History - Family History Family Medical History: Noncontributory - Tobacco Use Smoking Status *Q: Former Smoker Used Tobacco, but Quit: Yes Month/Year Tobacco Last Used: 4 months - Caffeine Use Caffeine Use: Reports: Coffee, Soda Caffeine Use Comment: 5 cups avg per day - Recreational Drug Use Recreational Drug Use: No H&P Review of Systems - Review of Systems: Review Of Systems: Comprehensive ROS is negative, except as noted in HPI. Exam - Exam Exam: See Below - Vital Signs Vital Signs: Last Vital Signs Temp 97.4 F 05/19/19 09:47 Pulse 77 05/19/19 11:38 Resp 18 05/19/19 11:38 BP 181/103 H 05/19/19 11:48 Pulse Ox 98 05/19/19 11:38 Weight: 63.503 kg - Exam General: Alert, Oriented, Cooperative, Mild Distress HEENT: Conjunctiva Clear, EOMI, Hearing Intact, Mucosa Moist & [place], Posterior Pharynx Clear Neck: Supple, Trachea Midline Lungs: Other (scattered wheezing bilaterally.) Cardiovascular: Regular Rate, Regular Rhythm GI/Abdominal Exam: Normal Bowel Sounds, Soft, Non-Tender, No Distention Extremities: Normal Inspection, No Pedal Edema Peripheral Pulses: 1+: Posterior Tibial (L), Posterior Tibial (R) Skin: Warm, Dry, Intact Neurological: Cranial Nerves Intact, Strength Equal Bilateral, Normal Speech, Normal Tone Neuro Extensive - Mental Status: Alert, Oriented x3, Normal Mood/Affect - Patient Data Lab Results Last 24 hrs: Laboratory Results - last 24 hr 05/19/19 05/19/19 05/19/19 Range/Units 09:50 09:50 09:50 WBC 11.29 H (4.0-11.0) K/uL RBC 4.88 (4.30-5.90) M/uL Hgb 13.8 (12.0-16.0) g/dL Hct 42.1 (36.0-46.0) % MCV 86.3 (80.0-98.0) fL MCH 28.3 (27.0-32.0) pg MCHC 32.8 (31.0-37.0) g/dL RDW Std Deviation 41.7 (28.0-62.0) fl RDW Coeff of Jamil 13 (11.0-15.0) % Plt Count 226 (150-400) K/uL MPV 9.70 (7.40-12.00) fL Neut % (Auto) 65.6 (48.0-80.0) % Lymph % (Auto) 25.2 (16.0-40.0) % Mckinley % (Auto) 7.2 (0.0-15.0) % Eos % (Auto) 1.7 (0.0-7.0) % Baso % (Auto) 0.3 (0.0-1.5) % Neut # (Auto) 7.4 H (1.4-5.7) K/uL Lymph # (Auto) 2.8 H (0.6-2.4) K/uL Mckinley # (Auto) 0.8 (0.0-0.8) K/uL Eos # (Auto) 0.2 (0.0-0.7) K/uL Baso # (Auto) 0.0 (0.0-0.1) K/uL Nucleated RBC % 0.0 /100WBC Nucleated RBCs # 0 K/uL INR 1.01 Sodium 138 (136-145) mmol/L Potassium 4.2 (3.5-5.1) mmol/L Chloride 102 (98-107) mmol/L Carbon Dioxide 24.9 (21.0-32.0) mmol/L BUN 17 (7.0-18.0) mg/dL Creatinine 1.1 H (0.6-1.0) mg/dL Est Cr Clr Drug Dosing 53.16 mL/min Estimated GFR (MDRD) 50.3 ml/min Glucose 102 (74-106) mg/dL Calcium 9.1 (8.5-10.1) mg/dL Total Bilirubin 0.4 (0.2-1.0) mg/dL AST 22 (15-37) IU/L ALT 17 (14-63) IU/L Alkaline Phosphatase 100 (46-116) U/L Troponin I < 0.050 (0.000-0.056) ng/mL Total Protein 8.1 (6.4-8.2) g/dL Albumin 4.1 (3.4-5.0) g/dL Globulin 4.0 (2.6-4.0) g/dL Albumin/Globulin Ratio 1.0 (0.9-1.6) Urine Color Urine Appearance Urine pH (5.0-8.0) Ur Specific Ewing (1.001-1.035) Urine Protein (NEGATIVE) mg/dL Urine Glucose (UA) (NEGATIVE) mg/dL Urine Ketones (NEGATIVE) mg/dL Urine Occult Blood (NEGATIVE) Urine Nitrite (NEGATIVE) Urine Bilirubin (NEGATIVE) Urine Urobilinogen (<2.0) EU/dL Ur Leukocyte Esterase (NEGATIVE) 05/19/19 Range/Units 10:49 WBC (4.0-11.0) K/uL RBC (4.30-5.90) M/uL Hgb (12.0-16.0) g/dL Hct (36.0-46.0) % MCV (80.0-98.0) fL MCH (27.0-32.0) pg MCHC (31.0-37.0) g/dL RDW Std Deviation (28.0-62.0) fl RDW Coeff of Jamil (11.0-15.0) % Plt Count (150-400) K/uL MPV (7.40-12.00) fL Neut % (Auto) (48.0-80.0) % Lymph % (Auto) (16.0-40.0) % Mckinley % (Auto) (0.0-15.0) % Eos % (Auto) (0.0-7.0) % Baso % (Auto) (0.0-1.5) % Neut # (Auto) (1.4-5.7) K/uL Lymph # (Auto) (0.6-2.4) K/uL Mckinley # (Auto) (0.0-0.8) K/uL Eos # (Auto) (0.0-0.7) K/uL Baso # (Auto) (0.0-0.1) K/uL Nucleated RBC % /100WBC Nucleated RBCs # K/uL INR Sodium (136-145) mmol/L Potassium (3.5-5.1) mmol/L Chloride (98-107) mmol/L Carbon Dioxide (21.0-32.0) mmol/L BUN (7.0-18.0) mg/dL Creatinine (0.6-1.0) mg/dL Est Cr Clr Drug Dosing mL/min Estimated GFR (MDRD) ml/min Glucose (74-106) mg/dL Calcium (8.5-10.1) mg/dL Total Bilirubin (0.2-1.0) mg/dL AST (15-37) IU/L ALT (14-63) IU/L Alkaline Phosphatase (46-116) U/L Troponin I (0.000-0.056) ng/mL Total Protein (6.4-8.2) g/dL Albumin (3.4-5.0) g/dL Globulin (2.6-4.0) g/dL Albumin/Globulin Ratio (0.9-1.6) Urine Color YELLOW Urine Appearance CLEAR Urine pH 6.0 (5.0-8.0) Ur Specific Ewing 1.015 (1.001-1.035) Urine Protein NEGATIVE (NEGATIVE) mg/dL Urine Glucose (UA) NEGATIVE (NEGATIVE) mg/dL Urine Ketones NEGATIVE (NEGATIVE) mg/dL Urine Occult Blood NEGATIVE (NEGATIVE) Urine Nitrite NEGATIVE (NEGATIVE) Urine Bilirubin NEGATIVE (NEGATIVE) Urine Urobilinogen 0.2 (<2.0) EU/dL Ur Leukocyte Esterase NEGATIVE (NEGATIVE) Result Diagrams: 05/19/19 09:50 05/19/19 09:50 Problem List Initiated/Reviewed/Updated: Yes Orders Last 24hrs: Active Orders 24 hr Category Date Time Status Admission Status [Patient Status] [ADT] Stat ADT 05/19/19 11:40 Active EKG Documentation Completion [RC] STAT Care 05/19/19 09:58 Active RT Aerosol Therapy [RC] ASDIRECTED Care 05/19/19 10:03 Active RT Aerosol Therapy [RC] ASDIRECTED Care 05/19/19 11:32 Active Sodium Chloride 0.9% [Normal Saline] 1,000 ml Med 05/19/19 11:30 Active IV STAT Medication Orders Sodium Chloride (Normal Saline) 1,000 mls @ 125 mls/hr IV STAT YASIR Last Admin: 05/19/19 11:30 Dose: 125 mls/hr Assessment/Plan Comment:: Assessment and Plan: 1. Acute on chronic hypoxic respiratory failure secondary to COPD exacerbation: Continue supplemental oxygen, duonebs q4, solumedrol 40 mg q8 and will start PO azithromycin. Patient currently on 4L of oxygen. Home baseline oxygen requirement is 2 L. CXR showed emphysema with no acute processes. Troponin negative. Patient is non-toxic appearing. No suspicion of sepsis at this time, WBC mildly elevated, VSS stable, no source of infection. 2. Hypertension: Continue home medications, will continue to monitor. 3. ALICIA: IV NS 1L @ 100 cc/hr. Will monitor. 4. Past medical history of Hep C, anxiety, depression and panic attacks: Will continue home medications. Patient reports her hepatitis C was treated many years ago. 5. VTE prophylaxis: heparin. <Wisam Young - Last Filed: 05/20/19 11:00> H&P History of Present Illness - General Admit Problem/Dx: Admission Diagnosis/Problem Admission Diagnosis/Problem COPD, Moderate chronic obstructive pulmonary disease - History of Present Illness Initial Comments - Free Text/Narative: I performed a history and physical exam of the patient and discussed management with resident. I have reviewed the residents note and agree with documented findings and plan unless otherwise specified in my note. Exam - Vital Signs Vital Signs: Last Vital Signs Temp 36.3 C 05/20/19 07:57 Pulse 89 05/20/19 07:57 Resp 20 05/20/19 07:57 BP 174/85 H 05/20/19 10:09 Pulse Ox 94 L 05/20/19 07:57 - Patient Data Lab Results Last 24 hrs: Laboratory Results - last 24 hr 05/19/19 05/20/19 05/20/19 Range/Units 10:49 06:04 06:04 WBC 13.91 H (4.0-11.0) K/uL RBC 4.51 (4.30-5.90) M/uL Hgb 12.5 (12.0-16.0) g/dL Hct 38.8 (36.0-46.0) % MCV 86.0 (80.0-98.0) fL MCH 27.7 (27.0-32.0) pg MCHC 32.2 (31.0-37.0) g/dL RDW Std Deviation 40.9 (28.0-62.0) fl RDW Coeff of Jamil 13 (11.0-15.0) % Plt Count 211 (150-400) K/uL MPV 10.10 (7.40-12.00) fL Neut % (Auto) 90.5 H (48.0-80.0) % Lymph % (Auto) 7.3 L (16.0-40.0) % Mckinley % (Auto) 2.2 (0.0-15.0) % Eos % (Auto) 0.0 (0.0-7.0) % Baso % (Auto) 0.0 (0.0-1.5) % Neut # (Auto) 12.6 H (1.4-5.7) K/uL Lymph # (Auto) 1.0 (0.6-2.4) K/uL Mckinley # (Auto) 0.3 (0.0-0.8) K/uL Eos # (Auto) 0.0 (0.0-0.7) K/uL Baso # (Auto) 0.0 (0.0-0.1) K/uL Nucleated RBC % 0.0 /100WBC Nucleated RBCs # 0 K/uL Sodium 137 (136-145) mmol/L Potassium 4.5 (3.5-5.1) mmol/L Chloride 104 (98-107) mmol/L Carbon Dioxide 23.7 (21.0-32.0) mmol/L BUN 20 H (7.0-18.0) mg/dL Creatinine 1.0 (0.6-1.0) mg/dL Est Cr Clr Drug Dosing 58.47 mL/min Estimated GFR (MDRD) 56.2 ml/min Glucose 143 H (74-106) mg/dL Calcium 8.7 (8.5-10.1) mg/dL Total Bilirubin 0.2 (0.2-1.0) mg/dL AST 16 (15-37) IU/L ALT 15 (14-63) IU/L Alkaline Phosphatase 85 (46-116) U/L Total Protein 7.2 (6.4-8.2) g/dL Albumin 3.4 (3.4-5.0) g/dL Globulin 3.8 (2.6-4.0) g/dL Albumin/Globulin Ratio 0.9 (0.9-1.6) Urine Color YELLOW Urine Appearance CLEAR Urine pH 6.0 (5.0-8.0) Ur Specific Ewing 1.015 (1.001-1.035) Urine Protein NEGATIVE (NEGATIVE) mg/dL Urine Glucose (UA) NEGATIVE (NEGATIVE) mg/dL Urine Ketones NEGATIVE (NEGATIVE) mg/dL Urine Occult Blood NEGATIVE (NEGATIVE) Urine Nitrite NEGATIVE (NEGATIVE) Urine Bilirubin NEGATIVE (NEGATIVE) Urine Urobilinogen 0.2 (<2.0) EU/dL Ur Leukocyte Esterase NEGATIVE (NEGATIVE) Result Diagrams: 05/20/19 06:04 05/20/19 06:04 Sepsis Event Note - Focused Exam Vital Signs: Vital Signs Temp Pulse Resp BP BP BP Pulse Ox 05/20/19 10:09 174/85 H 05/20/19 08:13 163/86 H 05/20/19 07:57 36.3 C 89 20 163/86 H 94 L 05/20/19 07:11 89 20 148/95 H 95 05/20/19 07:06 88 20 192/102 H 95 05/20/19 07:00 102 H 40 H 226/130 H 95 05/20/19 06:00 74 191/101 H 05/20/19 04:56 36.3 C 80 20 191/96 H 97 05/20/19 00:14 36.5 C 80 20 170/89 H 93 L Date Exam was Performed: 05/20/19 Time Exam was Performed: 10:57 Orders Last 24hrs: Active Orders 24 hr Category Date Time Status Admission Status [Patient Status] [ADT] Stat ADT 05/19/19 11:40 Active Oxygen Therapy [RC] PRN Care 05/19/19 12:20 Active RT Aerosol Therapy [RC] ASDIRECTED Care 05/19/19 12:24 Active RT Aerosol Therapy [RC] ASDIRECTED Care 05/20/19 09:56 Active Telemetry Monitoring [Cardiac Monitoring] [RC] Q8H Care 05/19/19 12:10 Active Up ad Elma [RC] ASDIRECTED Care 05/19/19 12:20 Active VTE/DVT Education [RC] PER UNIT ROUTINE Care 05/19/19 12:20 Active Vital Signs [RC] Q4H Care 05/19/19 12:20 Active Heart Healthy Diet [DIET] Diet 05/19/19 Lunch Active Acetaminophen [Tylenol] Med 05/19/19 12:20 Active 650 mg PO Q4H PRN Albuterol/Ipratropium [DuoNeb 3.0-0.5 MG/3 ML] Med 05/20/19 09:56 Active 3 ml NEB Q4H PRN Benzonatate [Tessalon Perles] Med 05/20/19 10:00 Active 200 mg PO TID PRN Escitalopram [Lexapro] Med 05/20/19 09:00 Active 10 mg PO DAILY Heparin Sodium Med 05/19/19 12:30 Active 5,000 units SUBCUT Q8H Lisinopril [Prinivil] Med 05/20/19 10:00 Active 10 mg PO DAILY Ondansetron [Zofran ODT] Med 05/19/19 12:20 Active 4 mg PO Q4H PRN Ondansetron [Zofran] Med 05/19/19 12:20 Active 4 mg IVPUSH Q4H PRN Pantoprazole [ProTONIX] Med 05/19/19 12:30 Active 40 mg PO DAILY Patient's Own Medication [Ptom] Med 05/19/19 21:00 Active 1 each PO BID Simvastatin [Zocor] Med 05/19/19 21:00 Active 10 mg PO BEDTIME Venlafaxine [Effexor XR] Med 05/20/19 09:00 Active 75 mg PO DAILY cloNIDine [Catapres] Med 05/19/19 21:00 Active 0.1 mg PO BID methylPREDNISolone Sod Succ [Solu-MEDROL] Med 05/20/19 21:00 Active 40 mg IV Q12H Resuscitation Status Routine Resus Stat 05/19/19 12:20 Ordered Medication Orders Acetaminophen (Tylenol) 650 mg PO Q4H PRN PRN Reason: Pain (Mild 1-3)/fever Last Admin: 05/20/19 10:00 Dose: 650 mg Admin: 05/20/19 00:30 Dose: 650 mg Albuterol/Ipratropium (Duoneb 3.0-0.5 Mg/3 Ml) 3 ml NEB Q4H PRN PRN Reason: SOB/wheezing Benzonatate (Tessalon Perles) 200 mg PO TID PRN PRN Reason: Cough Last Admin: 05/20/19 10:10 Dose: 200 mg Clonidine HCl (Catapres) 0.1 mg PO BID [facility] Last Admin: 05/20/19 08:13 Dose: 0.1 mg Admin: 05/19/19 21:19 Dose: 0.1 mg Escitalopram Oxalate (Lexapro) 10 mg PO DAILY YASIR Last Admin: 05/20/19 08:14 Dose: 10 mg Heparin Sodium (Porcine) (Heparin Sodium) 5,000 units SUBCUT Q8H YASIR Last Admin: 05/20/19 05:03 Dose: 5,000 units Admin: 05/19/19 21:19 Dose: 5,000 units Admin: 05/19/19 13:43 Dose: 5,000 units Lisinopril (Prinivil) 10 mg PO DAILY [facility] Last Admin: 05/20/19 10:09 Dose: 10 mg Methylprednisolone Sodium Succinate (Solu-Medrol) 40 mg IV Q12H [facility] Ondansetron HCl (Zofran Odt) 4 mg PO Q4H PRN PRN Reason: nausea, able to take PO Ondansetron HCl (Zofran) 4 mg IVPUSH Q4H PRN PRN Reason: Nausea Pantoprazole Sodium (Protonix) 40 mg PO DAILY [facility] Last Admin: 05/20/19 08:13 Dose: 40 mg Admin: 05/19/19 13:42 Dose: 40 mg Varenicline Tartrate ([Chantix] 1 Mg) 1 each PO BID [facility] Last Admin: 05/20/19 08:14 Dose: 1 each Admin: 05/19/19 22:03 Dose: 1 each Simvastatin (Zocor) 10 mg PO BEDTIME [facility] Last Admin: 05/19/19 21:19 Dose: 10 mg Venlafaxine HCl (Effexor Xr) 75 mg PO DAILY [facility] Last Admin: 05/20/19 08:13 Dose: 75 mg
[2019-05-19] MEDS ORDERED: Azithromycin 250 MG Tab PO ONE (12:25)
[2019-05-19] MEDS ORDERED: methylPREDNISolone Sodium Succinate 40 MG/1 ML SDV IV SCH (12:30)
[2019-05-19] MEDS ORDERED: Albuterol/Ipratropium 3.0-0.5 MG/3 ML Neb Soln NEB SCH (12:30)
[2019-05-19] MEDS ORDERED: Sodium Chloride 0.9% 1,000 ML IV ONE (12:38)
[2019-05-19] MEDS: Pantoprazole 40 MG Tab.CR PO SCH (13:42)
[2019-05-19] MEDS: Heparin Sodium 5,000 Units/ML Vial SUBCUT SCH ×2 (13:43→21:19)
[2019-05-19] MEDS: methylPREDNISolone Sodium Succinate 40 MG/1 ML SDV IV SCH (17:39)
[2019-05-19] MEDS: Albuterol/Ipratropium 3.0-0.5 MG/3 ML Neb Soln NEB SCH ×2 (18:02→21:48)
[2019-05-19] MEDS: Simvastatin 10 MG Tab PO SCH (21:19)
[2019-05-19] MEDS: cloNIDine 0.1 MG Tab PO SCH (21:19)
[2019-05-19] MEDS: Varenicline Tartrate [Chantix] 1 MG PO SCH (22:03)
[2019-05-20] MEDS: Acetaminophen 325 MG Tab PO PRN ×3 (00:30→16:53)
[2019-05-20] MEDS: Albuterol/Ipratropium 3.0-0.5 MG/3 ML Neb Soln NEB SCH ×2 (02:04→05:56)
[2019-05-20] MEDS: methylPREDNISolone Sodium Succinate 40 MG/1 ML SDV IV SCH ×3 (02:05→20:42)
[2019-05-20] MEDS: Heparin Sodium 5,000 Units/ML Vial SUBCUT SCH ×3 (05:03→20:42)
[2019-05-20] MEDS ORDERED: hydrALAZINE 20 MG/ML SDV IVPUSH ONE (05:43)
[2019-05-20] MEDS ORDERED: amLODIPine 5 MG Tab PO ONE (05:46)
[2019-05-20 07:16] LABS: CARBON DIOXIDE,CO2 23.7 mmol/L (21.0-32.0); POTASSIUM,K 4.5 mmol/L (3.5-5.1)
[2019-05-20] MEDS: cloNIDine 0.1 MG Tab PO SCH ×2 (08:13→20:42)
[2019-05-20] MEDS: Pantoprazole 40 MG Tab.CR PO SCH (08:13)
[2019-05-20] MEDS: Venlafaxine 75 MG Cap.ER PO SCH (08:13)
[2019-05-20] MEDS: Escitalopram 10 MG Tab PO SCH (08:14)
[2019-05-20] MEDS: Varenicline Tartrate [Chantix] 1 MG PO SCH ×2 (08:14→20:50)
--- NOTE | 2019-05-20 08:44 | PCM.PN ---
<Evangelist Vernon M - Last Filed: 05/20/19 12:05> - General Info Date of Service: 05/20/19 Subjective Update: Reports breathing has improved significantly since yesterday. Tolerating PO diet. Urinating frequently. Reports elevated blood pressure this morning with headache but has since resolved with blood pressure going down. - Patient Data Vitals - Most Recent: Last Vital Signs Temp 97.4 F 05/20/19 07:57 Pulse 89 05/20/19 07:57 Resp 20 05/20/19 07:57 BP 163/86 H 05/20/19 08:13 Pulse Ox 94 L 05/20/19 07:57 Weight - Most Recent: 63.503 kg I&O - Last 24 Hours: Intake & Output 05/19/19 05/20/19 05/20/19 22:59 06:59 14:59 Intake Total 578 2238 Output Total 700 Balance 578 1538 Lab Results Last 24 Hours: Laboratory Results - last 24 hr 05/19/19 05/19/19 05/19/19 Range/Units 09:50 09:50 09:50 WBC 11.29 H (4.0-11.0) K/uL RBC 4.88 (4.30-5.90) M/uL Hgb 13.8 (12.0-16.0) g/dL Hct 42.1 (36.0-46.0) % MCV 86.3 (80.0-98.0) fL MCH 28.3 (27.0-32.0) pg MCHC 32.8 (31.0-37.0) g/dL RDW Std Deviation 41.7 (28.0-62.0) fl RDW Coeff of Jamil 13 (11.0-15.0) % Plt Count 226 (150-400) K/uL MPV 9.70 (7.40-12.00) fL Neut % (Auto) 65.6 (48.0-80.0) % Lymph % (Auto) 25.2 (16.0-40.0) % Webb % (Auto) 7.2 (0.0-15.0) % Eos % (Auto) 1.7 (0.0-7.0) % Baso % (Auto) 0.3 (0.0-1.5) % Neut # (Auto) 7.4 H (1.4-5.7) K/uL Lymph # (Auto) 2.8 H (0.6-2.4) K/uL Webb # (Auto) 0.8 (0.0-0.8) K/uL Eos # (Auto) 0.2 (0.0-0.7) K/uL Baso # (Auto) 0.0 (0.0-0.1) K/uL Nucleated RBC % 0.0 /100WBC Nucleated RBCs # 0 K/uL INR 1.01 Sodium 138 (136-145) mmol/L Potassium 4.2 (3.5-5.1) mmol/L Chloride 102 (98-107) mmol/L Carbon Dioxide 24.9 (21.0-32.0) mmol/L BUN 17 (7.0-18.0) mg/dL Creatinine 1.1 H (0.6-1.0) mg/dL Est Cr Clr Drug Dosing 53.16 mL/min Estimated GFR (MDRD) 50.3 ml/min Glucose 102 (74-106) mg/dL Calcium 9.1 (8.5-10.1) mg/dL Total Bilirubin 0.4 (0.2-1.0) mg/dL AST 22 (15-37) IU/L ALT 17 (14-63) IU/L Alkaline Phosphatase 100 (46-116) U/L Troponin I < 0.050 (0.000-0.056) ng/mL Total Protein 8.1 (6.4-8.2) g/dL Albumin 4.1 (3.4-5.0) g/dL Globulin 4.0 (2.6-4.0) g/dL Albumin/Globulin Ratio 1.0 (0.9-1.6) Urine Color Urine Appearance Urine pH (5.0-8.0) Ur Specific [place] (1.001-1.035) Urine Protein (NEGATIVE) mg/dL Urine Glucose (UA) (NEGATIVE) mg/dL Urine Ketones (NEGATIVE) mg/dL Urine Occult Blood (NEGATIVE) Urine Nitrite (NEGATIVE) Urine Bilirubin (NEGATIVE) Urine Urobilinogen (<2.0) EU/dL Ur Leukocyte Esterase (NEGATIVE) 05/19/19 05/20/19 05/20/19 Range/Units 10:49 06:04 06:04 WBC 13.91 H (4.0-11.0) K/uL RBC 4.51 (4.30-5.90) M/uL Hgb 12.5 (12.0-16.0) g/dL Hct 38.8 (36.0-46.0) % MCV 86.0 (80.0-98.0) fL MCH 27.7 (27.0-32.0) pg MCHC 32.2 (31.0-37.0) g/dL RDW Std Deviation 40.9 (28.0-62.0) fl RDW Coeff of Jamil 13 (11.0-15.0) % Plt Count 211 (150-400) K/uL MPV 10.10 (7.40-12.00) fL Neut % (Auto) 90.5 H (48.0-80.0) % Lymph % (Auto) 7.3 L (16.0-40.0) % Webb % (Auto) 2.2 (0.0-15.0) % Eos % (Auto) 0.0 (0.0-7.0) % Baso % (Auto) 0.0 (0.0-1.5) % Neut # (Auto) 12.6 H (1.4-5.7) K/uL Lymph # (Auto) 1.0 (0.6-2.4) K/uL Webb # (Auto) 0.3 (0.0-0.8) K/uL Eos # (Auto) 0.0 (0.0-0.7) K/uL Baso # (Auto) 0.0 (0.0-0.1) K/uL Nucleated RBC % 0.0 /100WBC Nucleated RBCs # 0 K/uL INR Sodium 137 (136-145) mmol/L Potassium 4.5 (3.5-5.1) mmol/L Chloride 104 (98-107) mmol/L Carbon Dioxide 23.7 (21.0-32.0) mmol/L BUN 20 H (7.0-18.0) mg/dL Creatinine 1.0 (0.6-1.0) mg/dL Est Cr Clr Drug Dosing 58.47 mL/min Estimated GFR (MDRD) 56.2 ml/min Glucose 143 H (74-106) mg/dL Calcium 8.7 (8.5-10.1) mg/dL Total Bilirubin 0.2 (0.2-1.0) mg/dL AST 16 (15-37) IU/L ALT 15 (14-63) IU/L Alkaline Phosphatase 85 (46-116) U/L Troponin I (0.000-0.056) ng/mL Total Protein 7.2 (6.4-8.2) g/dL Albumin 3.4 (3.4-5.0) g/dL Globulin 3.8 (2.6-4.0) g/dL Albumin/Globulin Ratio 0.9 (0.9-1.6) Urine Color YELLOW Urine Appearance CLEAR Urine pH 6.0 (5.0-8.0) Ur Specific [place] 1.015 (1.001-1.035) Urine Protein NEGATIVE (NEGATIVE) mg/dL Urine Glucose (UA) NEGATIVE (NEGATIVE) mg/dL Urine Ketones NEGATIVE (NEGATIVE) mg/dL Urine Occult Blood NEGATIVE (NEGATIVE) Urine Nitrite NEGATIVE (NEGATIVE) Urine Bilirubin NEGATIVE (NEGATIVE) Urine Urobilinogen 0.2 (<2.0) EU/dL Ur Leukocyte Esterase NEGATIVE (NEGATIVE) Med Orders - Current: Current Medications Acetaminophen (Tylenol) 650 mg PO Q4H PRN PRN Reason: Pain (Mild 1-3)/fever Last Admin: 05/20/19 00:30 Dose: 650 mg Albuterol/Ipratropium (Duoneb 3.0-0.5 Mg/3 Ml) 3 ml NEB Q4HRRT [facility] Last Admin: 05/20/19 05:56 Dose: 3 ml Clonidine HCl (Catapres) 0.1 mg PO BID [facility] Last Admin: 05/20/19 08:13 Dose: 0.1 mg Escitalopram Oxalate (Lexapro) 10 mg PO DAILY [facility] Last Admin: 05/20/19 08:14 Dose: 10 mg Heparin Sodium (Porcine) (Heparin Sodium) 5,000 units SUBCUT Q8H [facility] Last Admin: 05/20/19 05:03 Dose: 5,000 units Methylprednisolone Sodium Succinate (Solu-Medrol) 40 mg IV Q8H [facility] Last Admin: 05/20/19 02:05 Dose: 40 mg Ondansetron HCl (Zofran Odt) 4 mg PO Q4H PRN PRN Reason: nausea, able to take PO Ondansetron HCl (Zofran) 4 mg IVPUSH Q4H PRN PRN Reason: Nausea Pantoprazole Sodium (Protonix) 40 mg PO DAILY [facility] Last Admin: 05/20/19 08:13 Dose: 40 mg Varenicline Tartrate ([Chantix] 1 Mg) 1 each PO BID [facility] Last Admin: 05/20/19 08:14 Dose: 1 each Simvastatin (Zocor) 10 mg PO BEDTIME [facility] Last Admin: 05/19/19 21:19 Dose: 10 mg Venlafaxine HCl (Effexor Xr) 75 mg PO DAILY [facility] Last Admin: 05/20/19 08:13 Dose: 75 mg Discontinued Medications Albuterol (Proventil Neb Soln) 2.5 mg NEB ONETIME ONE Stop: 05/19/19 11:33 Last Admin: 05/19/19 11:40 Dose: 2.5 mg Albuterol/Ipratropium (Duoneb 3.0-0.5 Mg/3 Ml) Confirm Administered Dose 3 ml .ROUTE .STK-MED ONE Stop: 05/19/19 09:43 Last Admin: 05/19/19 09:55 Dose: 3 ml Albuterol/Ipratropium (Duoneb 3.0-0.5 Mg/3 Ml) 3 ml NEB ONETIME ONE Stop: 05/19/19 10:03 Last Admin: 05/19/19 10:04 Dose: 3 ml Albuterol/Ipratropium (Duoneb 3.0-0.5 Mg/3 Ml) Confirm Administered Dose 3 ml .ROUTE .STK-MED ONE Stop: 05/19/19 10:02 Last Admin: 05/19/19 10:05 Dose: Not Given Albuterol/Ipratropium (Duoneb 3.0-0.5 Mg/3 Ml) 3 ml NEB Q4H [facility] Last Admin: 05/19/19 19:46 Dose: Not Given Amlodipine Besylate (Norvasc) 10 mg PO ONETIME ONE Stop: 05/20/19 05:47 Last Admin: 05/20/19 06:00 Dose: 10 mg Azithromycin (Zithromax) 500 mg PO Q24H ONE Stop: 05/19/19 12:26 Last Admin: 05/19/19 13:42 Dose: 500 mg Clonidine HCl (Catapres) 0.1 mg PO ONETIME ONE Stop: 05/19/19 11:40 Last Admin: 05/19/19 11:48 Dose: 0.1 mg Enalaprilat (Vasotec Iv) 1.25 mg IVPUSH ONETIME ONE Stop: 05/19/19 11:21 Last Admin: 05/19/19 11:31 Dose: 1.25 mg Hydralazine HCl (Apresoline) 20 mg IVPUSH ONETIME ONE Stop: 05/20/19 05:44 Last Admin: 05/20/19 06:00 Dose: 20 mg Sodium Chloride (Normal Saline) 1,000 mls @ 125 mls/hr IV STAT [facility] Last Admin: 05/19/19 21:15 Dose: 100 mls/hr Sodium Chloride (Normal Saline) 1,000 mls @ 100 mls/hr IV STAT ONE Stop: 05/19/19 22:37 Last Admin: 05/19/19 14:42 Dose: Not Given Methylprednisolone Sodium Succinate (Solu-Medrol) 125 mg IVPUSH ONETIME ONE Stop: 05/19/19 09:48 Last Admin: 05/19/19 09:55 Dose: 125 mg Methylprednisolone Sodium Succinate (Solu-Medrol) 125 mg IVPUSH ONETIME ONE Stop: 05/19/19 10:31 Last Admin: 05/19/19 10:42 Dose: 125 mg Methylprednisolone Sodium Succinate (Solu-Medrol) 40 mg IV Q8H [facility] Last Admin: 05/19/19 19:46 Dose: Not Given - Exam General: Alert, Oriented, Cooperative, Mild Distress Lungs: Other (Wheezing bilaterally.) Cardiovascular: Regular Rate, Regular Rhythm GI/Abdominal Exam: Normal Bowel Sounds, Soft, Non-Tender, No Distention Extremities: Normal Inspection, No Pedal Edema - Problem List Review Problem List Initiated/Reviewed/Updated: Yes - My Orders Last 24 Hours: My Active Orders 05/19/19 12:20 Oxygen Therapy [RC] PRN Up ad Elma [RC] ASDIRECTED VTE/DVT Education [RC] PER UNIT ROUTINE Vital Signs [RC] Q4H Acetaminophen [Tylenol] 650 mg PO Q4H PRN Ondansetron [Zofran ODT] 4 mg PO Q4H PRN Ondansetron [Zofran] 4 mg IVPUSH Q4H PRN Resuscitation Status Routine 05/19/19 12:24 RT Aerosol Therapy [RC] ASDIRECTED 05/19/19 12:30 Heparin Sodium 5,000 units SUBCUT Q8H Pantoprazole [ProTONIX] 40 mg PO DAILY 05/19/19 18:00 Albuterol/Ipratropium [DuoNeb 3.0-0.5 MG/3 ML] 3 ml NEB Q4HRRT methylPREDNISolone Sod Succ [Solu-MEDROL] 40 mg IV Q8H 05/19/19 21:00 Patient's Own Medication [Ptom] 1 each PO BID Simvastatin [Zocor] 10 mg PO BEDTIME cloNIDine [Catapres] 0.1 mg PO BID 05/19/19 Lunch Heart Healthy Diet [DIET] 05/20/19 09:00 Escitalopram [Lexapro] 10 mg PO DAILY Venlafaxine [Effexor XR] 75 mg PO DAILY - Plan Plan:: Assessment and Plan: 1. Acute on chronic hypoxic respiratory failure secondary to COPD exacerbation: Continue supplemental oxygen. Will change to duonebs q4 prn and solumedrol 40 mg BID. Continue PO azithromycin. Patient has been weaned down to 3L of oxygen. Will add Tessalon pearles. 2. Hypertension: Continue home dose of clonidine. Will add lisinopril 10 mg qd. Will continue to monitor. 3. ALICIA, resolved. 4. Past medical history of Hep C, anxiety, depression and panic attacks: Will continue home medications. Patient reports her hepatitis C was treated many years ago. 5. VTE prophylaxis: heparin. <Wisam Young - Last Filed: 05/24/19 21:04> - Patient Data Vitals - Most Recent: Last Vital Signs Temp 36.1 C 05/22/19 09:00 Pulse 77 05/22/19 09:00 Resp 18 05/22/19 09:00 BP 166/90 H 05/22/19 09:51 Pulse Ox 97 05/22/19 09:00 Med Orders - Current: Current Medications Discontinued Medications Acetaminophen (Tylenol) 650 mg PO Q4H PRN PRN Reason: Pain (Mild 1-3)/fever Last Admin: 05/21/19 18:12 Dose: 650 mg Albuterol (Proventil Neb Soln) 2.5 mg NEB ONETIME ONE Stop: 05/19/19 11:33 Last Admin: 05/19/19 11:40 Dose: 2.5 mg Albuterol/Ipratropium (Duoneb 3.0-0.5 Mg/3 Ml) Confirm Administered Dose 3 ml .ROUTE .STK-MED ONE Stop: 05/19/19 09:43 Last Admin: 05/19/19 09:55 Dose: 3 ml Albuterol/Ipratropium (Duoneb 3.0-0.5 Mg/3 Ml) 3 ml NEB ONETIME ONE Stop: 05/19/19 10:03 Last Admin: 05/19/19 10:04 Dose: 3 ml Albuterol/Ipratropium (Duoneb 3.0-0.5 Mg/3 Ml) Confirm Administered Dose 3 ml .ROUTE .STK-MED ONE Stop: 05/19/19 10:02 Last Admin: 05/19/19 10:05 Dose: Not Given Albuterol/Ipratropium (Duoneb 3.0-0.5 Mg/3 Ml) 3 ml NEB Q4H [facility] Last Admin: 05/19/19 19:46 Dose: Not Given Albuterol/Ipratropium (Duoneb 3.0-0.5 Mg/3 Ml) 3 ml NEB Q4HRRT [facility] Last Admin: 05/20/19 05:56 Dose: 3 ml Albuterol/Ipratropium (Duoneb 3.0-0.5 Mg/3 Ml) 3 ml NEB Q4H PRN PRN Reason: SOB/wheezing Last Admin: 05/22/19 06:33 Dose: 3 ml Amlodipine Besylate (Norvasc) 10 mg PO ONETIME ONE Stop: 05/20/19 05:47 Last Admin: 05/20/19 06:00 Dose: 10 mg Azithromycin (Zithromax) 500 mg PO Q24H ONE Stop: 05/19/19 12:26 Last Admin: 05/19/19 13:42 Dose: 500 mg Benzonatate (Tessalon Perles) 200 mg PO TID PRN PRN Reason: Cough Last Admin: 05/21/19 20:01 Dose: 200 mg Clonidine HCl (Catapres) 0.1 mg PO ONETIME ONE Stop: 05/19/19 11:40 Last Admin: 05/19/19 11:48 Dose: 0.1 mg Clonidine HCl (Catapres) 0.1 mg PO BID [facility] Last Admin: 05/22/19 09:51 Dose: 0.1 mg Enalaprilat (Vasotec Iv) 1.25 mg IVPUSH ONETIME ONE Stop: 05/19/19 11:21 Last Admin: 05/19/19 11:31 Dose: 1.25 mg Escitalopram Oxalate (Lexapro) 10 mg PO DAILY [facility] Last Admin: 05/22/19 09:51 Dose: 10 mg Heparin Sodium (Porcine) (Heparin Sodium) 5,000 units SUBCUT Q8H [facility] Last Admin: 05/22/19 05:08 Dose: 5,000 units Hydralazine HCl (Apresoline) 20 mg IVPUSH ONETIME ONE Stop: 05/20/19 05:44 Last Admin: 05/20/19 06:00 Dose: 20 mg Sodium Chloride (Normal Saline) 1,000 mls @ 125 mls/hr IV STAT [facility] Last Admin: 05/19/19 21:15 Dose: 100 mls/hr Sodium Chloride (Normal Saline) 1,000 mls @ 100 mls/hr IV STAT ONE Stop: 05/19/19 22:37 Last Admin: 05/19/19 14:42 Dose: Not Given Lisinopril (Prinivil) 10 mg PO DAILY [facility] Last Admin: 05/22/19 09:51 Dose: 10 mg Methylprednisolone Sodium Succinate (Solu-Medrol) 125 mg IVPUSH ONETIME ONE Stop: 05/19/19 09:48 Last Admin: 05/19/19 09:55 Dose: 125 mg Methylprednisolone Sodium Succinate (Solu-Medrol) 125 mg IVPUSH ONETIME ONE Stop: 05/19/19 10:31 Last Admin: 05/19/19 10:42 Dose: 125 mg Methylprednisolone Sodium Succinate (Solu-Medrol) 40 mg IV Q8H [facility] Last Admin: 05/19/19 19:46 Dose: Not Given Methylprednisolone Sodium Succinate (Solu-Medrol) 40 mg IV Q8H [facility] Last Admin: 05/20/19 09:50 Dose: 40 mg Methylprednisolone Sodium Succinate (Solu-Medrol) 40 mg IV Q12H [facility] Last Admin: 05/22/19 09:51 Dose: 40 mg Ondansetron HCl (Zofran Odt) 4 mg PO Q4H PRN PRN Reason: nausea, able to take PO Ondansetron HCl (Zofran) 4 mg IVPUSH Q4H PRN PRN Reason: Nausea Pantoprazole Sodium (Protonix) 40 mg PO DAILY [facility] Last Admin: 05/22/19 09:51 Dose: 40 mg Varenicline Tartrate ([Chantix] 1 Mg) 1 each PO BID [facility] Last Admin: 05/22/19 09:52 Dose: Not Given Simvastatin (Zocor) 10 mg PO BEDTIME [facility] Last Admin: 05/21/19 20:24 Dose: 10 mg Venlafaxine HCl (Effexor Xr) 75 mg PO DAILY [facility] Last Admin: 05/22/19 09:51 Dose: 75 mg - Plan Plan:: I have seen and evaluated the patient and agree with the residents note unless specified in my note
[2019-05-20] MEDS: Lisinopril 10 MG Tab PO SCH (10:09)
[2019-05-20] MEDS: Benzonatate 100 MG Cap PO PRN ×2 (10:10→22:44)
[2019-05-20] MEDS: Albuterol/Ipratropium 3.0-0.5 MG/3 ML Neb Soln NEB PRN ×2 (13:01→22:25)
[2019-05-20] MEDS: Simvastatin 10 MG Tab PO SCH (20:43)
[2019-05-21] MEDS: Albuterol/Ipratropium 3.0-0.5 MG/3 ML Neb Soln NEB PRN ×2 (04:11→18:51)
[2019-05-21] MEDS: Heparin Sodium 5,000 Units/ML Vial SUBCUT SCH ×3 (04:12→20:22)
[2019-05-21 05:57] LABS: CARBON DIOXIDE,CO2 25.9 mmol/L (21.0-32.0); POTASSIUM,K 4.3 mmol/L (3.5-5.1)
[2019-05-21] MEDS: Pantoprazole 40 MG Tab.CR PO SCH (09:38)
[2019-05-21] MEDS: Escitalopram 10 MG Tab PO SCH (09:38)
[2019-05-21] MEDS: Venlafaxine 75 MG Cap.ER PO SCH (09:38)
[2019-05-21] MEDS: Lisinopril 10 MG Tab PO SCH (09:38)
[2019-05-21] MEDS: cloNIDine 0.1 MG Tab PO SCH ×2 (09:38→20:23)
[2019-05-21] MEDS: Varenicline Tartrate [Chantix] 1 MG PO SCH ×2 (09:39→20:24)
[2019-05-21] MEDS: methylPREDNISolone Sodium Succinate 40 MG/1 ML SDV IV SCH ×2 (09:39→20:24)
--- NOTE | 2019-05-21 11:24 | PCM.PN ---
- General Info Date of Service: 05/21/19 Subjective Update: Reports continued improvement in breathing today. No complaints at bedside this morning. Has not been ambulating very much. - Patient Data Vitals - Most Recent: Last Vital Signs Temp 98.1 F 05/21/19 08:00 Pulse 71 05/21/19 08:00 Resp 16 05/21/19 08:00 BP 164/92 H 05/21/19 09:38 Pulse Ox 97 05/21/19 08:00 Weight - Most Recent: 140 lb I&O - Last 24 Hours: Intake & Output 05/20/19 05/21/19 05/21/19 22:59 06:59 14:59 Intake Total 400 Output Total 600 Balance -200 Lab Results Last 24 Hours: Laboratory Results - last 24 hr 05/21/19 05/21/19 Range/Units 05:25 05:25 WBC 20.84 H (4.0-11.0) K/uL RBC 4.57 (4.30-5.90) M/uL Hgb 12.8 (12.0-16.0) g/dL Hct 39.1 (36.0-46.0) % MCV 85.6 (80.0-98.0) fL MCH 28.0 (27.0-32.0) pg MCHC 32.7 (31.0-37.0) g/dL RDW Std Deviation 41.8 (28.0-62.0) fl RDW Coeff of Jamil 14 (11.0-15.0) % Plt Count 217 (150-400) K/uL MPV 9.50 (7.40-12.00) fL Neut % (Auto) 88.2 H (48.0-80.0) % Lymph % (Auto) 7.1 L (16.0-40.0) % Wilson % (Auto) 4.7 (0.0-15.0) % Eos % (Auto) 0.0 (0.0-7.0) % Baso % (Auto) 0.0 (0.0-1.5) % Neut # (Auto) 18.4 H (1.4-5.7) K/uL Lymph # (Auto) 1.5 (0.6-2.4) K/uL Wilson # (Auto) 1.0 H (0.0-0.8) K/uL Eos # (Auto) 0.0 (0.0-0.7) K/uL Baso # (Auto) 0.0 (0.0-0.1) K/uL Nucleated RBC % 0.0 /100WBC Nucleated RBCs # 0 K/uL Sodium 136 (136-145) mmol/L Potassium 4.3 (3.5-5.1) mmol/L Chloride 102 (98-107) mmol/L Carbon Dioxide 25.9 (21.0-32.0) mmol/L BUN 22 H (7.0-18.0) mg/dL Creatinine 1.0 (0.6-1.0) mg/dL Est Cr Clr Drug Dosing 58.47 mL/min Estimated GFR (MDRD) 56.2 ml/min Glucose 155 H (74-106) mg/dL Calcium 8.9 (8.5-10.1) mg/dL Total Bilirubin 0.2 (0.2-1.0) mg/dL AST 13 L (15-37) IU/L ALT 17 (14-63) IU/L Alkaline Phosphatase 81 (46-116) U/L Total Protein 7.1 (6.4-8.2) g/dL Albumin 3.3 L (3.4-5.0) g/dL Globulin 3.8 (2.6-4.0) g/dL Albumin/Globulin Ratio 0.9 (0.9-1.6) Med Orders - Current: Current Medications Acetaminophen (Tylenol) 650 mg PO Q4H PRN PRN Reason: Pain (Mild 1-3)/fever Last Admin: 05/20/19 16:53 Dose: 650 mg Albuterol/Ipratropium (Duoneb 3.0-0.5 Mg/3 Ml) 3 ml NEB Q4H PRN PRN Reason: SOB/wheezing Last Admin: 05/21/19 04:11 Dose: 3 ml Benzonatate (Tessalon Perles) 200 mg PO TID PRN PRN Reason: Cough Last Admin: 05/20/19 22:44 Dose: 200 mg Clonidine HCl (Catapres) 0.1 mg PO BID [facility] Last Admin: 05/21/19 09:38 Dose: 0.1 mg Escitalopram Oxalate (Lexapro) 10 mg PO DAILY [facility] Last Admin: 05/21/19 09:38 Dose: 10 mg Heparin Sodium (Porcine) (Heparin Sodium) 5,000 units SUBCUT Q8H [facility] Last Admin: 05/21/19 04:12 Dose: 5,000 units Lisinopril (Prinivil) 10 mg PO DAILY [facility] Last Admin: 05/21/19 09:38 Dose: 10 mg Methylprednisolone Sodium Succinate (Solu-Medrol) 40 mg IV Q12H [facility] Last Admin: 05/21/19 09:39 Dose: 40 mg Ondansetron HCl (Zofran Odt) 4 mg PO Q4H PRN PRN Reason: nausea, able to take PO Ondansetron HCl (Zofran) 4 mg IVPUSH Q4H PRN PRN Reason: Nausea Pantoprazole Sodium (Protonix) 40 mg PO DAILY [facility] Last Admin: 05/21/19 09:38 Dose: 40 mg Varenicline Tartrate ([Chantix] 1 Mg) 1 each PO BID [facility] Last Admin: 05/21/19 09:39 Dose: 1 each Simvastatin (Zocor) 10 mg PO BEDTIME [facility] Last Admin: 05/20/19 20:43 Dose: 10 mg Venlafaxine HCl (Effexor Xr) 75 mg PO DAILY [facility] Last Admin: 05/21/19 09:38 Dose: 75 mg Discontinued Medications Albuterol (Proventil Neb Soln) 2.5 mg NEB ONETIME ONE Stop: 05/19/19 11:33 Last Admin: 05/19/19 11:40 Dose: 2.5 mg Albuterol/Ipratropium (Duoneb 3.0-0.5 Mg/3 Ml) Confirm Administered Dose 3 ml .ROUTE .STK-MED ONE Stop: 05/19/19 09:43 Last Admin: 05/19/19 09:55 Dose: 3 ml Albuterol/Ipratropium (Duoneb 3.0-0.5 Mg/3 Ml) 3 ml NEB ONETIME ONE Stop: 05/19/19 10:03 Last Admin: 05/19/19 10:04 Dose: 3 ml Albuterol/Ipratropium (Duoneb 3.0-0.5 Mg/3 Ml) Confirm Administered Dose 3 ml .ROUTE .STK-MED ONE Stop: 05/19/19 10:02 Last Admin: 05/19/19 10:05 Dose: Not Given Albuterol/Ipratropium (Duoneb 3.0-0.5 Mg/3 Ml) 3 ml NEB Q4H [facility] Last Admin: 05/19/19 19:46 Dose: Not Given Albuterol/Ipratropium (Duoneb 3.0-0.5 Mg/3 Ml) 3 ml NEB Q4HRRT [facility] Last Admin: 05/20/19 05:56 Dose: 3 ml Amlodipine Besylate (Norvasc) 10 mg PO ONETIME ONE Stop: 05/20/19 05:47 Last Admin: 05/20/19 06:00 Dose: 10 mg Azithromycin (Zithromax) 500 mg PO Q24H ONE Stop: 05/19/19 12:26 Last Admin: 05/19/19 13:42 Dose: 500 mg Clonidine HCl (Catapres) 0.1 mg PO ONETIME ONE Stop: 05/19/19 11:40 Last Admin: 05/19/19 11:48 Dose: 0.1 mg Enalaprilat (Vasotec Iv) 1.25 mg IVPUSH ONETIME ONE Stop: 05/19/19 11:21 Last Admin: 05/19/19 11:31 Dose: 1.25 mg Hydralazine HCl (Apresoline) 20 mg IVPUSH ONETIME ONE Stop: 05/20/19 05:44 Last Admin: 05/20/19 06:00 Dose: 20 mg Sodium Chloride (Normal Saline) 1,000 mls @ 125 mls/hr IV STAT [facility] Last Admin: 05/19/19 21:15 Dose: 100 mls/hr Sodium Chloride (Normal Saline) 1,000 mls @ 100 mls/hr IV STAT ONE Stop: 05/19/19 22:37 Last Admin: 05/19/19 14:42 Dose: Not Given Methylprednisolone Sodium Succinate (Solu-Medrol) 125 mg IVPUSH ONETIME ONE Stop: 05/19/19 09:48 Last Admin: 05/19/19 09:55 Dose: 125 mg Methylprednisolone Sodium Succinate (Solu-Medrol) 125 mg IVPUSH ONETIME ONE Stop: 05/19/19 10:31 Last Admin: 05/19/19 10:42 Dose: 125 mg Methylprednisolone Sodium Succinate (Solu-Medrol) 40 mg IV Q8H [facility] Last Admin: 05/19/19 19:46 Dose: Not Given Methylprednisolone Sodium Succinate (Solu-Medrol) 40 mg IV Q8H [facility] Last Admin: 05/20/19 09:50 Dose: 40 mg - Exam General: Alert, Oriented, No Acute Distress Lungs: Other (mild wheezing bilaterally) Cardiovascular: Regular Rate, Regular Rhythm GI/Abdominal Exam: Normal Bowel Sounds, Non-Tender, No Distention Extremities: Normal Inspection, No Pedal Edema Sepsis Event Note - Evaluation Sepsis Screening Result: No Definite Risk - Focused Exam Vital Signs: Vital Signs Temp Pulse Resp BP BP Pulse Ox 05/21/19 09:38 164/92 H 05/21/19 08:00 98.1 F 71 16 164/92 H 97 05/21/19 04:00 97.7 F 77 18 161/86 H 97 05/21/19 00:00 97.8 F 91 20 143/86 H 96 Date Exam was Performed: 05/21/19 Time Exam was Performed: 11:19 - Problem List Review Problem List Initiated/Reviewed/Updated: Yes - Plan Plan:: Assessment and Plan: 1. Acute on chronic hypoxic respiratory failure secondary to COPD exacerbation, improving: Continue supplemental oxygen. Patient currently weaned down to 2L. Continue duonebs q4 prn and solumedrol 40 mg BID. Continue PO azithromycin. Will encourage ambulation today. WBC increased which is likely secondary to steroids. Will monitor. 2. Hypertension: Currently on clonidine and lisinopril 10 mg qd. Will continue to monitor. 3. ALICIA, resolved. 4. Past medical history of Hep C, anxiety, depression and panic attacks: Will continue home medications. Patient reports her hepatitis C was treated many years ago. 5. VTE prophylaxis: heparin.
[2019-05-21] MEDS: Acetaminophen 325 MG Tab PO PRN (18:12)
[2019-05-21] MEDS: Benzonatate 100 MG Cap PO PRN (20:01)
[2019-05-21] MEDS: Simvastatin 10 MG Tab PO SCH (20:24)
[2019-05-22] MEDS: Heparin Sodium 5,000 Units/ML Vial SUBCUT SCH (05:08)
[2019-05-22 05:58] LABS: CARBON DIOXIDE,CO2 25.7 mmol/L (21.0-32.0); POTASSIUM,K 4.7 mmol/L (3.5-5.1)
[2019-05-22] MEDS: Albuterol/Ipratropium 3.0-0.5 MG/3 ML Neb Soln NEB PRN (06:33)
[2019-05-22 09:50] VITALS: BP 166/90; PULSE 77
[2019-05-22] MEDS: Varenicline Tartrate [Chantix] 1 MG PO SCH ×2 (09:51→09:52)
[2019-05-22] MEDS: Venlafaxine 75 MG Cap.ER PO SCH (09:51)
[2019-05-22] MEDS: Escitalopram 10 MG Tab PO SCH (09:51)
[2019-05-22] MEDS: Lisinopril 10 MG Tab PO SCH (09:51)
[2019-05-22] MEDS: cloNIDine 0.1 MG Tab PO SCH (09:51)
[2019-05-22] MEDS: methylPREDNISolone Sodium Succinate 40 MG/1 ML SDV IV SCH (09:51)
[2019-05-22] MEDS: Pantoprazole 40 MG Tab.CR PO SCH (09:51)
--- NOTE | 2019-05-22 10:25 | PCM.DCSUM1 ---
<Evangelist Vernon - Last Filed: 05/22/19 10:25> Discharge Summary - Hospital Course Free Text/Narrative:: 63-year-old female admitted for acute on chronic hypoxic respiratory failure secondary to COPD exacerbation. She has a PMH of HTN, anxiety, depression and hepatitis C. She was treated with supplemental oxygen, duonebs and solumedrol. Patient was successfully weaned down to her baseline home oxygen requirement of 2 L. She was discharged on course of azithromycin x 5 days and prednisone 40 mg qd x 4 days. Her blood pressures were also elevated during hospitalization. She was started on lisinopril 10 mg qd in addition to her clonidine which she takes for her blood pressure. Advised to follow-up with PCP on discharge. - Discharge Data Discharge Date: 05/22/19 Discharge Disposition: Home, Self-Care 01 Condition: Stable - Referral to Home Health Primary Care Physician: Elda Bran MD - Patient Instructions Diet: Heart Healthy Diet Activity: As Tolerated Notify Provider of: Fever, Increased Pain, Swelling and Redness, Drainage, Nausea and/or Vomiting - Discharge Plan *PRESCRIPTION DRUG MONITORING PROGRAM REVIEWED*: Not Applicable *COPY OF PRESCRIPTION DRUG MONITORING REPORT IN PATIENT KARIE: Not Applicable Prescriptions/Med Rec: Azithromycin [Zithromax] 250 mg PO DAILY 5 Days #6 tab Benzonatate 100 mg PO TID PRN 3 Days #9 capsule PRN Reason: Cough Lisinopril [Prinivil] 10 mg PO DAILY 30 Days #30 tablet predniSONE [Prednisone] 40 mg PO DAILY 4 Days #8 tablet Home Medications: Home Meds Albuterol [Proventil HFA] 1 puff INH QID PRN 09/22/18 [History] Albuterol/Ipratropium [DuoNeb 3.0-0.5 MG/3 ML] 3 ml NEB Q8HR PRN 09/22/18 [ History] Budesonide/Formoterol Fumarate [Symbicort 80-4.5 MCG] 1 puff IH BID 09/22/18 [ History] Simvastatin [Zocor] 10 mg PO BEDTIME 09/22/18 [History] Venlafaxine HCl [Venlafaxine ER] 75 mg PO DAILY 09/22/18 [History] cloNIDine [Catapres] 0.1 mg PO BID 09/22/18 [History] Escitalopram [Lexapro] 10 mg PO DAILY 09/30/18 [History] Fluticasone/Salmeterol [Advair 500-50] 1 puff IH DAILY 05/19/19 [History] Umeclidinium Gore [Incruse Ellipta*] 1 puff DAILY 05/19/19 [History] Varenicline Tartrate [Chantix] 1 mg PO BID 05/19/19 [History] Azithromycin [Zithromax] 250 mg PO DAILY 5 Days #6 tab 05/22/19 [Rx] Benzonatate 100 mg PO TID PRN 3 Days #9 capsule 05/22/19 [Rx] Lisinopril [Prinivil] 10 mg PO DAILY 30 Days #30 tablet 05/22/19 [Rx] predniSONE [Prednisone] 40 mg PO DAILY 4 Days #8 tablet 05/22/19 [Rx] Oxygen Therapy Mode: Nasal Cannula Patient Handouts: Chronic Obstructive Pulmonary Disease Exacerbation, Easy-to- Read, Azithromycin tablets, Lisinopril tablets, Prednisone tablets Referrals: [facility] [Outside] Madyson Vera THERMAL INTELLIGENCE ANALYST [Nurse Practitioner] - 05/26/19 4:30 pm - Discharge Summary/Plan Comment DC Time >30 min.: No - Patient Data Vitals - Most Recent: Last Vital Signs Temp 97 F 05/22/19 09:00 Pulse 77 05/22/19 09:00 Resp 18 05/22/19 09:00 BP 166/90 H 05/22/19 09:51 Pulse Ox 97 05/22/19 09:00 Weight - Most Recent: 63.503 kg I&O - Last 24 hours: Intake & Output 05/21/19 05/22/19 05/22/19 22:59 06:59 14:59 Intake Total 600 1140 Output Total 500 800 Balance 100 340 Lab Results - Last 24 hrs: Laboratory Results - last 24 hr 05/22/19 05/22/19 Range/Units 05:16 05:16 WBC 15.69 H (4.0-11.0) K/uL RBC 4.59 (4.30-5.90) M/uL Hgb 12.9 (12.0-16.0) g/dL Hct 39.4 (36.0-46.0) % MCV 85.8 (80.0-98.0) fL MCH 28.1 (27.0-32.0) pg MCHC 32.7 (31.0-37.0) g/dL RDW Std Deviation 41.7 (28.0-62.0) fl RDW Coeff of Jamil 13 (11.0-15.0) % Plt Count 227 (150-400) K/uL MPV 9.60 (7.40-12.00) fL Neut % (Auto) 88.4 H (48.0-80.0) % Lymph % (Auto) 7.7 L (16.0-40.0) % [place] % (Auto) 3.8 (0.0-15.0) % Eos % (Auto) 0.0 (0.0-7.0) % Baso % (Auto) 0.1 (0.0-1.5) % Neut # (Auto) 13.9 H (1.4-5.7) K/uL Lymph # (Auto) 1.2 (0.6-2.4) K/uL [place] # (Auto) 0.6 (0.0-0.8) K/uL Eos # (Auto) 0.0 (0.0-0.7) K/uL Baso # (Auto) 0.0 (0.0-0.1) K/uL Nucleated RBC % 0.0 /100WBC Nucleated RBCs # 0 K/uL Sodium 136 (136-145) mmol/L Potassium 4.7 (3.5-5.1) mmol/L Chloride 102 (98-107) mmol/L Carbon Dioxide 25.7 (21.0-32.0) mmol/L BUN 27 H (7.0-18.0) mg/dL Creatinine 1.0 (0.6-1.0) mg/dL Est Cr Clr Drug Dosing 58.47 mL/min Estimated GFR (MDRD) 56.2 ml/min Glucose 128 H (74-106) mg/dL Calcium 8.9 (8.5-10.1) mg/dL Total Bilirubin 0.2 (0.2-1.0) mg/dL AST 12 L (15-37) IU/L ALT 21 (14-63) IU/L Alkaline Phosphatase 74 (46-116) U/L Total Protein 6.7 (6.4-8.2) g/dL Albumin 3.2 L (3.4-5.0) g/dL Globulin 3.5 (2.6-4.0) g/dL Albumin/Globulin Ratio 0.9 (0.9-1.6) Med Orders - Current: Current Medications Acetaminophen (Tylenol) 650 mg PO Q4H PRN PRN Reason: Pain (Mild 1-3)/fever Last Admin: 05/21/19 18:12 Dose: 650 mg Albuterol/Ipratropium (Duoneb 3.0-0.5 Mg/3 Ml) 3 ml NEB Q4H PRN PRN Reason: SOB/wheezing Last Admin: 05/22/19 06:33 Dose: 3 ml Benzonatate (Tessalon Perles) 200 mg PO TID PRN PRN Reason: Cough Last Admin: 05/21/19 20:01 Dose: 200 mg Clonidine HCl (Catapres) 0.1 mg PO BID [facility] Last Admin: 05/22/19 09:51 Dose: 0.1 mg Escitalopram Oxalate (Lexapro) 10 mg PO DAILY [facility] Last Admin: 05/22/19 09:51 Dose: 10 mg Heparin Sodium (Porcine) (Heparin Sodium) 5,000 units SUBCUT Q8H [facility] Last Admin: 05/22/19 05:08 Dose: 5,000 units Lisinopril (Prinivil) 10 mg PO DAILY [facility] Last Admin: 05/22/19 09:51 Dose: 10 mg Methylprednisolone Sodium Succinate (Solu-Medrol) 40 mg IV Q12H [facility] Last Admin: 05/22/19 09:51 Dose: 40 mg Ondansetron HCl (Zofran Odt) 4 mg PO Q4H PRN PRN Reason: nausea, able to take PO Ondansetron HCl (Zofran) 4 mg IVPUSH Q4H PRN PRN Reason: Nausea Pantoprazole Sodium (Protonix) 40 mg PO DAILY [facility] Last Admin: 05/22/19 09:51 Dose: 40 mg Varenicline Tartrate ([Chantix] 1 Mg) 1 each PO BID [facility] Last Admin: 05/22/19 09:52 Dose: Not Given Simvastatin (Zocor) 10 mg PO BEDTIME [facility] Last Admin: 05/21/19 20:24 Dose: 10 mg Venlafaxine HCl (Effexor Xr) 75 mg PO DAILY [facility] Last Admin: 05/22/19 09:51 Dose: 75 mg Discontinued Medications Albuterol (Proventil Neb Soln) 2.5 mg NEB ONETIME ONE Stop: 05/19/19 11:33 Last Admin: 05/19/19 11:40 Dose: 2.5 mg Albuterol/Ipratropium (Duoneb 3.0-0.5 Mg/3 Ml) Confirm Administered Dose 3 ml .ROUTE .STK-MED ONE Stop: 05/19/19 09:43 Last Admin: 05/19/19 09:55 Dose: 3 ml Albuterol/Ipratropium (Duoneb 3.0-0.5 Mg/3 Ml) 3 ml NEB ONETIME ONE Stop: 05/19/19 10:03 Last Admin: 05/19/19 10:04 Dose: 3 ml Albuterol/Ipratropium (Duoneb 3.0-0.5 Mg/3 Ml) Confirm Administered Dose 3 ml .ROUTE .STK-MED ONE Stop: 05/19/19 10:02 Last Admin: 05/19/19 10:05 Dose: Not Given Albuterol/Ipratropium (Duoneb 3.0-0.5 Mg/3 Ml) 3 ml NEB Q4H [facility] Last Admin: 05/19/19 19:46 Dose: Not Given Albuterol/Ipratropium (Duoneb 3.0-0.5 Mg/3 Ml) 3 ml NEB Q4HRRT [facility] Last Admin: 05/20/19 05:56 Dose: 3 ml Amlodipine Besylate (Norvasc) 10 mg PO ONETIME ONE Stop: 05/20/19 05:47 Last Admin: 05/20/19 06:00 Dose: 10 mg Azithromycin (Zithromax) 500 mg PO Q24H ONE Stop: 05/19/19 12:26 Last Admin: 05/19/19 13:42 Dose: 500 mg Clonidine HCl (Catapres) 0.1 mg PO ONETIME ONE Stop: 05/19/19 11:40 Last Admin: 05/19/19 11:48 Dose: 0.1 mg Enalaprilat (Vasotec Iv) 1.25 mg IVPUSH ONETIME ONE Stop: 05/19/19 11:21 Last Admin: 05/19/19 11:31 Dose: 1.25 mg Hydralazine HCl (Apresoline) 20 mg IVPUSH ONETIME ONE Stop: 05/20/19 05:44 Last Admin: 05/20/19 06:00 Dose: 20 mg Sodium Chloride (Normal Saline) 1,000 mls @ 125 mls/hr IV STAT YASIR Last Admin: 05/19/19 21:15 Dose: 100 mls/hr Sodium Chloride (Normal Saline) 1,000 mls @ 100 mls/hr IV STAT ONE Stop: 05/19/19 22:37 Last Admin: 05/19/19 14:42 Dose: Not Given Methylprednisolone Sodium Succinate (Solu-Medrol) 125 mg IVPUSH ONETIME ONE Stop: 05/19/19 09:48 Last Admin: 05/19/19 09:55 Dose: 125 mg Methylprednisolone Sodium Succinate (Solu-Medrol) 125 mg IVPUSH ONETIME ONE Stop: 05/19/19 10:31 Last Admin: 05/19/19 10:42 Dose: 125 mg Methylprednisolone Sodium Succinate (Solu-Medrol) 40 mg IV Q8H YASIR Last Admin: 05/19/19 19:46 Dose: Not Given Methylprednisolone Sodium Succinate (Solu-Medrol) 40 mg IV Q8H [facility] Last Admin: 05/20/19 09:50 Dose: 40 mg <Didier King - Last Filed: 05/23/19 19:50> Discharge Summary - Referral to Home Health Primary Care Physician: Elda Bran MD - Patient Data Vitals - Most Recent: Last Vital Signs Temp 36.1 C 05/22/19 09:00 Pulse 77 05/22/19 09:00 Resp 18 05/22/19 09:00 BP 166/90 H 05/22/19 09:51 Pulse Ox 97 05/22/19 09:00 Med Orders - Current: Current Medications Discontinued Medications Acetaminophen (Tylenol) 650 mg PO Q4H PRN PRN Reason: Pain (Mild 1-3)/fever Last Admin: 05/21/19 18:12 Dose: 650 mg Albuterol (Proventil Neb Soln) 2.5 mg NEB ONETIME ONE Stop: 05/19/19 11:33 Last Admin: 05/19/19 11:40 Dose: 2.5 mg Albuterol/Ipratropium (Duoneb 3.0-0.5 Mg/3 Ml) Confirm Administered Dose 3 ml .ROUTE .STK-MED ONE Stop: 05/19/19 09:43 Last Admin: 05/19/19 09:55 Dose: 3 ml Albuterol/Ipratropium (Duoneb 3.0-0.5 Mg/3 Ml) 3 ml NEB ONETIME ONE Stop: 05/19/19 10:03 Last Admin: 05/19/19 10:04 Dose: 3 ml Albuterol/Ipratropium (Duoneb 3.0-0.5 Mg/3 Ml) Confirm Administered Dose 3 ml .ROUTE .STK-MED ONE Stop: 05/19/19 10:02 Last Admin: 05/19/19 10:05 Dose: Not Given Albuterol/Ipratropium (Duoneb 3.0-0.5 Mg/3 Ml) 3 ml NEB Q4H [facility] Last Admin: 05/19/19 19:46 Dose: Not Given Albuterol/Ipratropium (Duoneb 3.0-0.5 Mg/3 Ml) 3 ml NEB Q4HRRT YASIR Last Admin: 05/20/19 05:56 Dose: 3 ml Albuterol/Ipratropium (Duoneb 3.0-0.5 Mg/3 Ml) 3 ml NEB Q4H PRN PRN Reason: SOB/wheezing Last Admin: 05/22/19 06:33 Dose: 3 ml Amlodipine Besylate (Norvasc) 10 mg PO ONETIME ONE Stop: 05/20/19 05:47 Last Admin: 05/20/19 06:00 Dose: 10 mg Azithromycin (Zithromax) 500 mg PO Q24H ONE Stop: 05/19/19 12:26 Last Admin: 05/19/19 13:42 Dose: 500 mg Benzonatate (Tessalon Perles) 200 mg PO TID PRN PRN Reason: Cough Last Admin: 05/21/19 20:01 Dose: 200 mg Clonidine HCl (Catapres) 0.1 mg PO ONETIME ONE Stop: 05/19/19 11:40 Last Admin: 05/19/19 11:48 Dose: 0.1 mg Clonidine HCl (Catapres) 0.1 mg PO BID YASIR Last Admin: 05/22/19 09:51 Dose: 0.1 mg Enalaprilat (Vasotec Iv) 1.25 mg IVPUSH ONETIME ONE Stop: 05/19/19 11:21 Last Admin: 05/19/19 11:31 Dose: 1.25 mg Escitalopram Oxalate (Lexapro) 10 mg PO DAILY [facility] Last Admin: 05/22/19 09:51 Dose: 10 mg Heparin Sodium (Porcine) (Heparin Sodium) 5,000 units SUBCUT Q8H [facility] Last Admin: 05/22/19 05:08 Dose: 5,000 units Hydralazine HCl (Apresoline) 20 mg IVPUSH ONETIME ONE Stop: 05/20/19 05:44 Last Admin: 05/20/19 06:00 Dose: 20 mg Sodium Chloride (Normal Saline) 1,000 mls @ 125 mls/hr IV STAT [facility] Last Admin: 05/19/19 21:15 Dose: 100 mls/hr Sodium Chloride (Normal Saline) 1,000 mls @ 100 mls/hr IV STAT ONE Stop: 05/19/19 22:37 Last Admin: 05/19/19 14:42 Dose: Not Given Lisinopril (Prinivil) 10 mg PO DAILY [facility] Last Admin: 05/22/19 09:51 Dose: 10 mg Methylprednisolone Sodium Succinate (Solu-Medrol) 125 mg IVPUSH ONETIME ONE Stop: 05/19/19 09:48 Last Admin: 05/19/19 09:55 Dose: 125 mg Methylprednisolone Sodium Succinate (Solu-Medrol) 125 mg IVPUSH ONETIME ONE Stop: 05/19/19 10:31 Last Admin: 05/19/19 10:42 Dose: 125 mg Methylprednisolone Sodium Succinate (Solu-Medrol) 40 mg IV Q8H [facility] Last Admin: 05/19/19 19:46 Dose: Not Given Methylprednisolone Sodium Succinate (Solu-Medrol) 40 mg IV Q8H [facility] Last Admin: 05/20/19 09:50 Dose: 40 mg Methylprednisolone Sodium Succinate (Solu-Medrol) 40 mg IV Q12H [facility] Last Admin: 05/22/19 09:51 Dose: 40 mg Ondansetron HCl (Zofran Odt) 4 mg PO Q4H PRN PRN Reason: nausea, able to take PO Ondansetron HCl (Zofran) 4 mg IVPUSH Q4H PRN PRN Reason: Nausea Pantoprazole Sodium (Protonix) 40 mg PO DAILY YASIR Last Admin: 05/22/19 09:51 Dose: 40 mg Varenicline Tartrate ([Chantix] 1 Mg) 1 each PO BID [facility] Last Admin: 05/22/19 09:52 Dose: Not Given Simvastatin (Zocor) 10 mg PO BEDTIME [facility] Last Admin: 05/21/19 20:24 Dose: 10 mg Venlafaxine HCl (Effexor Xr) 75 mg PO DAILY [facility] Last Admin: 05/22/19 09:51 Dose: 75 mg - Free Text/Narrative Note: I have seen and examined the patient with the resident. I have discussed findings and treatment plan with the resident. I agree with the assessment and plan outlined in the following note.
== END 2019-05-22 13:00 | disposition home or self-care (01) | DRG 189 ==
LOC: MW.ED 09:39 → MW.MS 11:40
PROVIDERS: ADMIT Student in an Organized Health Care Education/Training Program; ATTEND Student in an Organized Health Care Education/Training Program
DX: J96.21 Acute and chronic respiratory failure with hypoxia (principal); N17.9 Acute kidney failure, unspecified; J43.9 Emphysema, unspecified; Z79.899 Other long term (current) drug therapy; I10 Essential (primary) hypertension; F41.0 Panic disorder [episodic paroxysmal anxiety]; F32.9 Major depressive disorder, single episode, unspecified; Z86.19 Personal history of other infectious and parasitic diseases; Z99.81 Dependence on supplemental oxygen; Z79.51 Long term (current) use of inhaled steroids; Z79.52 Long term (current) use of systemic steroids; Z87.442 Personal history of urinary calculi; Z87.891 Personal history of nicotine dependence
CPT/HCPCS: 36415; 71045; 80053; 81003; 84484; 85025; 85610; 93005; 94640; 96374; 96375; 96376; 99285; J2930 ×2; J7030; 99284; A9270-GY; J0360; J1644; J2920; J7620-GY

== ENCOUNTER 2019-07-30 12:39 | Observation (INO) | payer MEDICAID, MEDICARE, OTHER ==
[2019-07-30] MEDS ORDERED: Albuterol/Ipratropium 3.0-0.5 MG/3 ML Neb Soln NEB ONE ×3 (12:46→14:20)
[2019-07-30] MEDS ORDERED: methylPREDNISolone Sodium Succinate 2 GM Vial IV ONE (12:46)
--- NOTE | 2019-07-30 13:17 | EDM.PDOC ---
ED HPI GENERAL MEDICAL PROBLEM - General Chief Complaint: Respiratory Problem Stated Complaint: TROUBLE BREATHING Time Seen by Provider: 07/30/19 13:15 Source of Information: Reports: Patient History Limitations: Reports: No Limitations - History of Present Illness INITIAL COMMENTS - FREE TEXT/NARRATIVE: 64-year-old female with a past medical history of hypertension and COPD. Patient presents with a chief complaint of shortness of breath. Patient states the symptom started last night. Patient reports symptoms similar to prior COPD exacerbations. Patient took nebulizer and inhaler without any improvement of her symptoms. Patient reports mild increase in cough but nonproductive. Shortness of breath is moderate in nature. Patient denies any palpitations. Patient does report some right-sided chest discomfort which she says is worsened with coughing. Patient denies any lower extremity swelling. Patient denies any cardiovascular history. Pmhx: COPD Pshx: None Family Hx: noncontributory Smoking history? Yes Etoh use? none Drug use? none In addition to that documented in the HPI above, the additional ROS was obtained : Constitutional: Denies fevers or chills Eyes: Denies vision changes ENMT: Denies sore throat CV: Denies chest pain Resp: Per HPI GI: Denies vomiting or diarrhea : Denies painful urination MSK: Denies recent trauma Skin: Denies new rashes Neuro: Denies new numbness or tingling or weakness Endocrine: Denies unexpected weight loss Heme: Denies bleeding disorders I have reviewed the triage vital signs Const: Well nourished, well developed, appears stated age. Mildly anxious but nontoxic in appearance Eyes: PERRL, no conjunctival injection HENT: NCAT, Neck supple without meningismus CV: RRR, Warm, well-perfused extremities RESP: No shortness of breath increased respiratory rate, bilateral wheezing on lung exam GI: soft, non-tender, non-distended, no masses MSK: No gross deformities appreciated Skin: Warm, dry. No rashes Neuro: Alert, worship director II-XII grossly intact. Sensation and motor function of extremities grossly intact. Psych: Appropriate mood and affect Assessment and plan: Patient is 64-year-old female with COPD presenting with shortness of breath. Patient has no evidence of pneumonia on chest x-ray but continues to be dyspneic and have wheezing on pulmonary exam. Patient mildly improved with steroids and several rounds of duo nebs. Patient will require observation in the hospital for respiratory status. Other differentials include pneumonia, PE. However, these seem less likely given the clinical presentation and work- up. - Related Data Allergies Allergy/AdvReac Type Severity Reaction Status Date / Time No Known Allergies Allergy Verified 07/30/19 12:51 Home Meds: Home Meds Albuterol [Proventil HFA] 1 puff INH QID PRN 09/22/18 [History] Albuterol/Ipratropium [DuoNeb 3.0-0.5 MG/3 ML] 3 ml NEB Q8HR PRN 09/22/18 [ History] Budesonide/Formoterol Fumarate [Symbicort 80-4.5 MCG] 1 puff IH BID 09/22/18 [ History] Simvastatin [Zocor] 10 mg PO BEDTIME 09/22/18 [History] Venlafaxine HCl [Venlafaxine ER] 75 mg PO DAILY 09/22/18 [History] cloNIDine [Catapres] 0.1 mg PO BID 09/22/18 [History] Escitalopram [Lexapro] 10 mg PO DAILY 09/30/18 [History] Fluticasone/Salmeterol [Advair 500-50] 1 puff IH DAILY 05/19/19 [History] Umeclidinium Sylvia [Incruse Ellipta*] 1 puff DAILY 05/19/19 [History] Varenicline Tartrate [Chantix] 1 mg PO BID 05/19/19 [History] Azithromycin [Zithromax] 250 mg PO DAILY 5 Days #6 tab 05/22/19 [Rx] Benzonatate 100 mg PO TID PRN 3 Days #9 capsule 05/22/19 [Rx] lisinopriL [Prinivil] 10 mg PO DAILY 30 Days #30 tablet 05/22/19 [Rx] predniSONE [Prednisone] 40 mg PO DAILY 4 Days #8 tablet 05/22/19 [Rx] Past Medical History - Past Health History Medical/Surgical History: Denies Medical/Surgical History HEENT History: Reports: None Cardiovascular History: Reports: Hypertension Respiratory History: Reports: COPD, Other (See Below) Other Respiratory History: Home O2 @ 2LPM Gastrointestinal History: Reports: Diverticulosis Genitourinary History: Reports: Other (See Below) Other Genitourinary History: kidney stones ASSOCIATE PROFESSOR OF LITERACY History: Reports: None Musculoskeletal History: Reports: None Neurological History: Reports: None Psychiatric History: Reports: Addiction, Anxiety, Depression Endocrine/Metabolic History: Reports: None Hematologic History: Reports: None Immunologic History: Reports: None Oncologic (Cancer) History: Reports: None Dermatologic History: Reports: None - Infectious Disease History Infectious Disease History: Reports: Hepatitis C Other Infectious Disease History: unsure of which kind of hepatitis - Past Surgical History Head Surgeries/Procedures: Reports: None HEENT Surgical History: Reports: None Cardiovascular Surgical History: Reports: None Respiratory Surgical History: Reports: None GI Surgical History: Reports: Appendectomy Female Surgical History: Reports: None Endocrine Surgical History: Reports: None Neurological Surgical History: Reports: None Musculoskeletal Surgical History: Reports: Other (See Below) Other Musculoskeletal Surgeries/Procedures:: rt shoulder surg Oncologic Surgical History: Reports: None Dermatological Surgical History: Reports: None Social & Family History - Family History Family Medical History: Noncontributory Endocrine/Metabolic: Reports: Diabetes, type II Oncologic: Reports: Hodgkin's Lymphoma - Tobacco Use Smoking Status *Q: Never Smoker - Caffeine Use Caffeine Use: Reports: Coffee, Soda Caffeine Use Comment: 5 cups avg per day - Recreational Drug Use Recreational Drug Use: No ED ROS GENERAL - Review of Systems Review Of Systems: See Below ED EXAM, GENERAL - Physical Exam Exam: See Below Course - Vital Signs Last Recorded V/S: Last Vital Signs Temp 36.1 C 07/30/19 13:24 Pulse 74 07/30/19 14:34 Resp 20 07/30/19 14:34 BP 155/85 H 07/30/19 14:34 Pulse Ox 98 07/30/19 14:34 - Orders/Labs/Meds Orders: Active Orders 24 hr Category Date Time Status EKG 12 Lead [EKG Documentation Completion] [RC] ROUTINE Care 07/30/19 13:48 Active RT Aerosol Therapy [RC] ASDIRECTED Care 07/30/19 12:47 Active RT Aerosol Therapy [RC] ASDIRECTED Care 07/30/19 13:50 Active RT Aerosol Therapy [RC] ASDIRECTED Care 07/30/19 14:20 Active Labs: Laboratory Tests 07/30/19 07/30/19 07/30/19 Range/Units 12:55 12:55 12:55 WBC 8.73 (4.0-11.0) K/uL RBC 5.04 (4.30-5.90) M/uL Hgb 14.3 (12.0-16.0) g/dL Hct 43.4 (36.0-46.0) % MCV 86.1 (80.0-98.0) fL MCH 28.4 (27.0-32.0) pg MCHC 32.9 (31.0-37.0) g/dL RDW Std Deviation 45.0 (28.0-62.0) fl RDW Coeff of Jamil 15 (11.0-15.0) % Plt Count 261 (150-400) K/uL MPV 9.30 (7.40-12.00) fL Neut % (Auto) 51.0 (48.0-80.0) % Lymph % (Auto) 34.6 (16.0-40.0) % [place] % (Auto) 8.8 (0.0-15.0) % Eos % (Auto) 5.3 (0.0-7.0) % Baso % (Auto) 0.3 (0.0-1.5) % Neut # (Auto) 4.5 (1.4-5.7) K/uL Lymph # (Auto) 3.0 H (0.6-2.4) K/uL [place] # (Auto) 0.8 (0.0-0.8) K/uL Eos # (Auto) 0.5 (0.0-0.7) K/uL Baso # (Auto) 0.0 (0.0-0.1) K/uL Nucleated RBC % 0.0 /100WBC Nucleated RBCs # 0 K/uL VBG pH 7.35 (7.31-7.41) VBG pCO2 49 H (35-45) mmHG VBG pO2 31 (30-40) mmHG VBG HCO3 27 (22-30) mEq/L VBG Total CO2 28 L (41-51) mmol/L VBG Base Excess 1 (-3.0-3.0) Sodium 143 (136-145) mmol/L Potassium 4.2 (3.5-5.1) mmol/L Chloride 105 (98-107) mmol/L Carbon Dioxide 26.9 (21.0-32.0) mmol/L BUN 22 H (7.0-18.0) mg/dL Creatinine 1.1 H (0.6-1.0) mg/dL Est Cr Clr Drug Dosing 52.48 mL/min Estimated GFR (MDRD) 50.2 ml/min Glucose 91 (74-106) mg/dL Calcium 9.4 (8.5-10.1) mg/dL Troponin I < 0.050 (0.000-0.056) ng/mL Meds: Medications Discontinued Medications Generic Name Dose Route Start Last Admin Trade Name Freq PRN Reason Stop Dose Admin Albuterol/Ipratropium 3 ml 07/30/19 12:46 07/30/19 12:50 Duoneb 3.0-0.5 Mg/3 Ml NEB 07/30/19 12:47 3 ml ONETIME ONE Administration Albuterol/Ipratropium 3 ml 07/30/19 13:50 07/30/19 13:58 Duoneb 3.0-0.5 Mg/3 Ml NEB 07/30/19 13:51 3 ml ONETIME ONE Administration Albuterol/Ipratropium 3 ml 07/30/19 14:20 07/30/19 14:27 Duoneb 3.0-0.5 Mg/3 Ml NEB 07/30/19 14:21 3 ml ONETIME ONE Administration Methylprednisolone Sodium Succinate 125 mg 07/30/19 14:24 07/30/19 14:33 Solu-Medrol IV 07/30/19 14:25 125 mg ONETIME ONE Administration Departure - Departure Time of Disposition: 15:07 Disposition: Refer to Observation Clinical Impression: COPD exacerbation - Discharge Information Referrals: Elda Bran MD [Primary Care Provider] - Forms: ED Department Discharge Sepsis Event Note - Evaluation Sepsis Screening Result: No Definite Risk - Focused Exam Vital Signs: Vital Signs Temp Pulse Resp BP Pulse Ox 07/30/19 14:34 74 20 155/85 H 98 07/30/19 13:48 80 22 H 148/94 H 98 07/30/19 13:24 36.1 C 81 147/82 H 98 07/30/19 12:47 36.5 C 84 30 H 169/109 H 96 Date Exam was Performed: 07/30/19 Time Exam was Performed: 15:05 - My Orders Last 24 Hours: My Active Orders 07/30/19 12:47 RT Aerosol Therapy [RC] ASDIRECTED 07/30/19 13:48 EKG 12 Lead [EKG Documentation Completion] [RC] ROUTINE 07/30/19 13:50 RT Aerosol Therapy [RC] ASDIRECTED 07/30/19 14:20 RT Aerosol Therapy [RC] ASDIRECTED - Assessment/Plan Last 24 Hours: My Active Orders 07/30/19 12:47 RT Aerosol Therapy [RC] ASDIRECTED 07/30/19 13:48 EKG 12 Lead [EKG Documentation Completion] [RC] ROUTINE 07/30/19 13:50 RT Aerosol Therapy [RC] ASDIRECTED 07/30/19 14:20 RT Aerosol Therapy [RC] ASDIRECTED
[2019-07-30 13:35] LABS: BLOOD UREA NITROGEN,BUN 22 mg/dL (7.0-18.0); CARBON DIOXIDE,CO2 26.9 mmol/L (21.0-32.0); CHLORIDE,CL 105 mmol/L (98-107); GLUCOSE RANDOM 91 mg/dL (74-106); POTASSIUM,K 4.2 mmol/L (3.5-5.1); SODIUM,NA 143 mmol/L (136-145)
[2019-07-30] MEDS ORDERED: methylPREDNISolone Sodium Succinate 125 MG/2 ML SDV IV ONE (14:24)
--- NOTE | 2019-07-30 14:24 | CR ---
Chest: Frontal view of the chest was obtained utilizing portable technique. Comparison: Prior chest x-ray of 05/19/19. Heart size and mediastinum are within normal limits. Lungs are hyperinflated compatible with emphysematous change. Slight scarring is noted within the right midlung. Lungs otherwise are clear with no acute parenchymal change. Bony structures are grossly intact. Impression: 1. Emphysematous change. 2. Slight scarring within the right midlung. 3. Nothing acute is otherwise seen. Diagnostic code #2 Study was dictated in [place] [employer] Time
--- NOTE | 2019-07-30 16:15 | PCM.HP.2 ---
H&P History of Present Illness - General Date of Service: 07/30/19 Admit Problem/Dx: Admission Diagnosis/Problem Admission Diagnosis/Problem COPD, Moderate chronic obstructive pulmonary disease Source of Information: Patient History Limitations: Reports: No Limitations - History of Present Illness Initial Comments - Free Text/Narative: This 64 year old female with pmh of oxygen dependent COPD, HTN, Hep C, anxiety and hx tobacco use presented to the ED with complaints of dyspnea and cough which started approximately 4 days ago. She was previously admitted for COPD exacerbation May 2019 and done well outpatient, but was recently around grandchildren who had some colds, then she started getting sick. She denies fevers or chills. Reports generalized malaise, non productive cough, dyspnea with exertion and significant wheezing, which does not improve with rescue inhaler. She uses Symbicort and Incruse at home as well as rescue inhaler. She called the clinic today for appointment but they directed her here due to severity of symptoms. She denies chest pain. Reports dysuria and lower abdominal along with foul smelling urine. She reports she feels dehydrated due to mild nausea and poor appetite with this cold. She denies tobacco use now, quit approximately 5 years ago, rare social alcohol use and no recreational drug use. In the ED no leukocytosis noted, mild BUN cr elevation, which is near baseline. CXR revealed emphysematous changes, no acute process noted. She was treated with Solumedrol and Duonebs in the ED. She reports feeling improved since then. She will be admitted observation for COPD exacerbation. PCP, Dr. Bran - Related Data Allergies/Adverse Reactions: Allergies Allergy/AdvReac Type Severity Reaction Status Date / Time No Known Allergies Allergy Verified 07/30/19 12:51 Home Medications: Home Meds Albuterol [Proventil HFA] 1 puff INH QID PRN 09/22/18 [History] Albuterol/Ipratropium [DuoNeb 3.0-0.5 MG/3 ML] 3 ml NEB Q8HR PRN 09/22/18 [ History] Budesonide/Formoterol Fumarate [Symbicort 80-4.5 MCG] 1 puff IH BID 09/22/18 [ History] Simvastatin [Zocor] 10 mg PO BEDTIME 09/22/18 [History] Venlafaxine HCl [Venlafaxine ER] 75 mg PO DAILY 09/22/18 [History] cloNIDine [Catapres] 0.1 mg PO BID 09/22/18 [History] Escitalopram [Lexapro] 10 mg PO DAILY 09/30/18 [History] Fluticasone/Salmeterol [Advair 500-50] 1 puff IH DAILY 05/19/19 [History] Umeclidinium [place] [Incruse Ellipta*] 1 puff DAILY 05/19/19 [History] Varenicline Tartrate [Chantix] 1 mg PO BID 05/19/19 [History] Azithromycin [Zithromax] 250 mg PO DAILY 5 Days #6 tab 05/22/19 [Rx] Benzonatate 100 mg PO TID PRN 3 Days #9 capsule 05/22/19 [Rx] lisinopriL [Prinivil] 10 mg PO DAILY 30 Days #30 tablet 05/22/19 [Rx] predniSONE [Prednisone] 40 mg PO DAILY 4 Days #8 tablet 05/22/19 [Rx] Past Medical History - Past Health History Medical/Surgical History: Denies Medical/Surgical History HEENT History: Reports: None Cardiovascular History: Reports: Hypertension Respiratory History: Reports: COPD, Other (See Below) Other Respiratory History: Home O2 @ 2LPM Gastrointestinal History: Reports: Diverticulosis Genitourinary History: Reports: Other (See Below) Other Genitourinary History: kidney stones [employer] History: Reports: None Musculoskeletal History: Reports: None Neurological History: Reports: None Psychiatric History: Reports: Addiction, Anxiety, Depression Endocrine/Metabolic History: Reports: None Hematologic History: Reports: None Immunologic History: Reports: None Oncologic (Cancer) History: Reports: None Dermatologic History: Reports: None - Infectious Disease History Infectious Disease History: Reports: Hepatitis C Other Infectious Disease History: unsure of which kind of hepatitis - Past Surgical History Head Surgeries/Procedures: Reports: None HEENT Surgical History: Reports: None Cardiovascular Surgical History: Reports: None Respiratory Surgical History: Reports: None GI Surgical History: Reports: Appendectomy Female Surgical History: Reports: None Endocrine Surgical History: Reports: None Neurological Surgical History: Reports: None Musculoskeletal Surgical History: Reports: Other (See Below) Other Musculoskeletal Surgeries/Procedures:: rt shoulder surg Oncologic Surgical History: Reports: None Dermatological Surgical History: Reports: None Social & Family History - Family History Family Medical History: Noncontributory Endocrine/Metabolic: Reports: Diabetes, type II Oncologic: Reports: Hodgkin's Lymphoma - Tobacco Use Smoking Status *Q: Never Smoker - Caffeine Use Caffeine Use: Reports: Coffee, Soda Caffeine Use Comment: 5 cups avg per day - Alcohol Use Alcohol Use History: No - Recreational Drug Use Recreational Drug Use: No - Living Situation & Occupation Living situation: Reports: Single H&P Review of Systems - Review of Systems: Review Of Systems: See Below General: Reports: Malaise. Denies: Fever, Chills Pulmonary: Reports: Shortness of Breath, Wheezing, Cough. Denies: Sputum, Hemoptysis Cardiovascular: Reports: No Symptoms. Denies: Chest Pain, Lightheadedness Gastrointestinal: Reports: Abdominal Pain (lower abdominal pain), Nausea. Denies: Black Stool, Bloody Stool Genitourinary: Reports: Dysuria Musculoskeletal: Reports: No Symptoms Psychiatric: Reports: No Symptoms Neurological: Reports: No Symptoms Hematologic/Lymphatic: Reports: No Symptoms Immunologic: Reports: No Symptoms Exam - Exam Exam: See Below - Vital Signs Vital Signs: Last Vital Signs Temp 96.9 F 07/30/19 13:24 Pulse 74 07/30/19 14:34 Resp 20 07/30/19 14:34 BP 155/85 H 07/30/19 14:34 Pulse Ox 98 07/30/19 14:34 Weight: 63.503 kg - Exam Quality Assessment: Supplemental Oxygen (3 L NC, baseline 2 L ) General: Alert, Oriented Lungs: Decreased Breath Sounds (bibasilar). No: Normal Respiratory Effort ( dyspnea with speech, pursed lip breathing) Cardiovascular: Regular Rate, Regular Rhythm GI/Abdominal Exam: Normal Bowel Sounds, Soft, Non-Tender Back Exam: Normal Inspection, Full Range of Motion Extremities: Normal Inspection, Normal Range of Motion, Non-Tender, No Pedal Edema Neuro Extensive - Mental Status: Alert, Oriented x3 Neuro Extensive - Motor, Sensory, Reflexes: CN II-XII Intact Psychiatric: Alert, Normal Affect, Normal Mood - Patient Data Lab Results Last 24 hrs: Laboratory Results - last 24 hr 07/30/19 07/30/19 07/30/19 Range/Units 12:55 12:55 12:55 WBC 8.73 (4.0-11.0) K/uL RBC 5.04 (4.30-5.90) M/uL Hgb 14.3 (12.0-16.0) g/dL Hct 43.4 (36.0-46.0) % MCV 86.1 (80.0-98.0) fL MCH 28.4 (27.0-32.0) pg MCHC 32.9 (31.0-37.0) g/dL RDW Std Deviation 45.0 (28.0-62.0) fl RDW Coeff of Jamil 15 (11.0-15.0) % Plt Count 261 (150-400) K/uL MPV 9.30 (7.40-12.00) fL Neut % (Auto) 51.0 (48.0-80.0) % Lymph % (Auto) 34.6 (16.0-40.0) % [place] % (Auto) 8.8 (0.0-15.0) % Eos % (Auto) 5.3 (0.0-7.0) % Baso % (Auto) 0.3 (0.0-1.5) % Neut # (Auto) 4.5 (1.4-5.7) K/uL Lymph # (Auto) 3.0 H (0.6-2.4) K/uL [place] # (Auto) 0.8 (0.0-0.8) K/uL Eos # (Auto) 0.5 (0.0-0.7) K/uL Baso # (Auto) 0.0 (0.0-0.1) K/uL Nucleated RBC % 0.0 /100WBC Nucleated RBCs # 0 K/uL VBG pH 7.35 (7.31-7.41) VBG pCO2 49 H (35-45) mmHG VBG pO2 31 (30-40) mmHG VBG HCO3 27 (22-30) mEq/L VBG Total CO2 28 L (41-51) mmol/L VBG Base Excess 1 (-3.0-3.0) Sodium 143 (136-145) mmol/L Potassium 4.2 (3.5-5.1) mmol/L Chloride 105 (98-107) mmol/L Carbon Dioxide 26.9 (21.0-32.0) mmol/L BUN 22 H (7.0-18.0) mg/dL Creatinine 1.1 H (0.6-1.0) mg/dL Est Cr Clr Drug Dosing 52.48 mL/min Estimated GFR (MDRD) 50.2 ml/min Glucose 91 (74-106) mg/dL Calcium 9.4 (8.5-10.1) mg/dL Troponin I < 0.050 (0.000-0.056) ng/mL Result Diagrams: 07/30/19 12:55 07/30/19 12:55 Sepsis Event Note - Evaluation Sepsis Screening Result: No Definite Risk - Focused Exam Vital Signs: Vital Signs Temp Pulse Resp BP Pulse Ox 07/30/19 14:34 74 20 155/85 H 98 07/30/19 13:48 80 22 H 148/94 H 98 07/30/19 13:24 96.9 F 81 147/82 H 98 07/30/19 12:47 97.7 F 84 30 H 169/109 H 96 Date Exam was Performed: 07/30/19 Time Exam was Performed: 16:07 - Problem List (1) COPD exacerbation SNOMED Code(s): 122905975, 090780419 ICD Code: J44.1 - CHRONIC OBSTRUCTIVE PULMONARY DISEASE W (ACUTE) EXACERBATION Status: Acute Current Visit: Yes (2) Hx of hepatitis C SNOMED Code(s): 77977048228479, 36681563707798 ICD Code: Z86.19 - PERSONAL HISTORY OF OTHER INFECTIOUS AND PARASITIC DISEASES Status: Chronic Current Visit: Yes (3) HTN (hypertension) SNOMED Code(s): 31550123 ICD Code: I10 - ESSENTIAL (PRIMARY) HYPERTENSION Status: Chronic Current Visit: No Qualifiers: Hypertension type: essential hypertension Qualified Code(s): I10 - Essential (primary) hypertension (4) Depression SNOMED Code(s): 27595596 ICD Code: F32.9 - MAJOR DEPRESSIVE DISORDER, SINGLE EPISODE, UNSPECIFIED Status: Chronic Current Visit: No Qualifiers: Depression Type: unspecified Qualified Code(s): F32.9 - Major depressive disorder, single episode, unspecified (5) Anxiety SNOMED Code(s): 33466221 ICD Code: F41.9 - ANXIETY DISORDER, UNSPECIFIED Status: Chronic Current Visit: Yes (6) Oxygen dependent SNOMED Code(s): 444838650297 ICD Code: Z99.81 - DEPENDENCE ON SUPPLEMENTAL OXYGEN Status: Chronic Current Visit: Yes (7) History of tobacco abuse SNOMED Code(s): 609793204, 484267616 ICD Code: Z87.891 - PERSONAL HISTORY OF NICOTINE DEPENDENCE Status: Chronic Current Visit: Yes Problem List Initiated/Reviewed/Updated: Yes Orders Last 24hrs: Active Orders 24 hr Category Date Time Status Admission Status [Patient Status] [ADT] Stat ADT 07/30/19 15:51 Active EKG 12 Lead [EKG Documentation Completion] [RC] ROUTINE Care 07/30/19 13:48 Active RT Aerosol Therapy [RC] ASDIRECTED Care 07/30/19 12:47 Active RT Aerosol Therapy [RC] ASDIRECTED Care 07/30/19 13:50 Active RT Aerosol Therapy [RC] ASDIRECTED Care 07/30/19 14:20 Active Assessment/Plan Comment:: This 64 year old female admitted with COPD exacerbation 1. COPD exacerbation - Obtain influenza swab due to sick contacts, exacerbation likely due to URI - Duonebs Q4hrs as well as PRN - Solumedrol 80 mg Q8hr IV - Levaquin 750 mg IV for COPD exacerbation - Oxygen PRN, keep sats 88% or higher. Does wear 2 L NC at home continuously 2. dysuria - Obtain UA/UC - Give 1 L NS for mild dehydration 3. HTN - Stable, will continue home medications 4. Anxiety -Stable, continue home medications. Diet: Regular VTE prophylaxis: Heparin CODE Status: Full Code Disposition: 1-2 days pending improvement - Mortality Measure Prognosis:: Good
[2019-07-30] MEDS ORDERED: Sodium Chloride 0.9% 10 ML Syringe FLUSH PRN (16:26)
[2019-07-30] MEDS ORDERED: Sodium Chloride 0.9% 1,000 ML IV ONE (16:27)
[2019-07-30] MEDS ORDERED: Albuterol 0.083% 2.5 MG/3 ML Neb Soln NEB PRN (16:35)
[2019-07-30] MEDS: Levofloxacin/Dextrose 5%-Water 750 MG in Premix Bag 1 BAG IV SCH (18:04)
[2019-07-30] MEDS: Albuterol/Ipratropium 3.0-0.5 MG/3 ML Neb Soln NEB SCH ×2 (18:15→21:10)
[2019-07-30] MEDS ORDERED: Thiamine 100 MG Tab PO SCH (21:00)
[2019-07-30] MEDS: Ondansetron 4 MG/2 ML SDV IVPUSH PRN (21:49)
[2019-07-30] MEDS: Thiamine 100 MG in Sodium Chloride 0.9% 50 ML IV SCH (21:51)
[2019-07-30] MEDS: Heparin Sodium 5,000 Units/ML Vial SUBCUT SCH (21:55)
[2019-07-30] MEDS: Folic Acid 1 MG Tab PO SCH (21:58)
[2019-07-30] MEDS: cloNIDine 0.1 MG Tab PO SCH (21:58)
[2019-07-30] MEDS: FORMOTEROL INH SCH (23:14)
[2019-07-30] MEDS: BUDESONIDE INH SCH (23:14)
[2019-07-30] MEDS: Acetaminophen 325 MG Tab PO PRN (23:15)
[2019-07-30] MEDS: methylPREDNISolone Sodium Succinate 40 MG/1 ML SDV IVPUSH SCH (23:16)
[2019-07-31] MEDS: Albuterol/Ipratropium 3.0-0.5 MG/3 ML Neb Soln NEB SCH ×6 (01:59→21:20)
[2019-07-31] MEDS: Acetaminophen 325 MG Tab PO PRN (05:57)
[2019-07-31] MEDS: Ondansetron 4 MG/2 ML SDV IVPUSH PRN (06:06)
[2019-07-31 06:31] LABS: CARBON DIOXIDE,CO2 25.8 mmol/L (21.0-32.0)
[2019-07-31] MEDS: methylPREDNISolone Sodium Succinate 40 MG/1 ML SDV IVPUSH SCH (06:40)
[2019-07-31] MEDS ORDERED: Benzonatate 100 MG Cap PO PRN (08:26)
[2019-07-31] MEDS ORDERED: Ketorolac 30 MG/ML SDV IVPUSH ONE ×2 (08:26→12:37)
--- NOTE | 2019-07-31 08:38 | PCM.PN ---
- General Info Date of Service: 07/31/19 Admission Dx/Problem (Free Text): Admission Diagnosis/Problem Admission Diagnosis/Problem COPD, Moderate chronic obstructive pulmonary disease Subjective Update: Feeling improved today, still dyspneic with walking more than usual. At baseline 2 L. No chest pain. reports headache, started last night, Tylenol helped slightly, but back again this morning. Mild nausea as well. Reports cough , non productive. Functional Status: Reports: Tolerating Diet, Ambulating, Urinating. Denies: Pain Controlled - Review of Systems General: Reports: No Symptoms HEENT: Reports: Headaches. Denies: Visual Changes Pulmonary: Reports: Shortness of Breath, Cough, Wheezing. Denies: Sputum Cardiovascular: Reports: Dyspnea on Exertion Gastrointestinal: Reports: Nausea. Denies: Abdominal Pain, Vomiting Genitourinary: Reports: No Symptoms Musculoskeletal: Reports: No Symptoms Skin: Reports: No Symptoms Neurological: Reports: No Symptoms Psychiatric: Reports: No Symptoms - Patient Data Vitals - Most Recent: Last Vital Signs Temp 97.5 F 07/31/19 03:45 Pulse 75 07/31/19 03:45 Resp 20 07/31/19 03:45 BP 152/79 H 07/31/19 03:45 Pulse Ox 96 07/31/19 03:45 Weight - Most Recent: 62.686 kg I&O - Last 24 Hours: Intake & Output 07/30/19 07/31/19 07/31/19 22:59 06:59 14:59 Intake Total 200 1514 Output Total 350 Balance 200 1164 Lab Results Last 24 Hours: Laboratory Results - last 24 hr 07/30/19 07/30/19 07/30/19 Range/Units 12:55 12:55 12:55 WBC 8.73 (4.0-11.0) K/uL RBC 5.04 (4.30-5.90) M/uL Hgb 14.3 (12.0-16.0) g/dL Hct 43.4 (36.0-46.0) % MCV 86.1 (80.0-98.0) fL MCH 28.4 (27.0-32.0) pg MCHC 32.9 (31.0-37.0) g/dL RDW Std Deviation 45.0 (28.0-62.0) fl RDW Coeff of Jamil 15 (11.0-15.0) % Plt Count 261 (150-400) K/uL MPV 9.30 (7.40-12.00) fL Neut % (Auto) 51.0 (48.0-80.0) % Lymph % (Auto) 34.6 (16.0-40.0) % [place] % (Auto) 8.8 (0.0-15.0) % Eos % (Auto) 5.3 (0.0-7.0) % Baso % (Auto) 0.3 (0.0-1.5) % Neut # (Auto) 4.5 (1.4-5.7) K/uL Lymph # (Auto) 3.0 H (0.6-2.4) K/uL [place] # (Auto) 0.8 (0.0-0.8) K/uL Eos # (Auto) 0.5 (0.0-0.7) K/uL Baso # (Auto) 0.0 (0.0-0.1) K/uL Nucleated RBC % 0.0 /100WBC Nucleated RBCs # 0 K/uL VBG pH 7.35 (7.31-7.41) VBG pCO2 49 H (35-45) mmHG VBG pO2 31 (30-40) mmHG VBG HCO3 27 (22-30) mEq/L VBG Total CO2 28 L (41-51) mmol/L VBG Base Excess 1 (-3.0-3.0) Sodium 143 (136-145) mmol/L Potassium 4.2 (3.5-5.1) mmol/L Chloride 105 (98-107) mmol/L Carbon Dioxide 26.9 (21.0-32.0) mmol/L BUN 22 H (7.0-18.0) mg/dL Creatinine 1.1 H (0.6-1.0) mg/dL Est Cr Clr Drug Dosing 52.48 mL/min Estimated GFR (MDRD) 50.2 ml/min Glucose 91 (74-106) mg/dL Calcium 9.4 (8.5-10.1) mg/dL Troponin I < 0.050 (0.000-0.056) ng/mL Urine Color Urine Appearance Urine pH (5.0-8.0) Ur Specific [place] (1.001-1.035) Urine Protein (NEGATIVE) mg/dL Urine Glucose (UA) (NEGATIVE) mg/dL Urine Ketones (NEGATIVE) mg/dL Urine Occult Blood (NEGATIVE) Urine Nitrite (NEGATIVE) Urine Bilirubin (NEGATIVE) Urine Urobilinogen (<2.0) EU/dL Ur Leukocyte Esterase (NEGATIVE) Urine RBC (0-2/HPF) Urine WBC (0-5/HPF) Ur Epithelial Cells (NONE-FEW) Urine Bacteria (NEGATIVE) Urine Mucus (NONE-MOD) 07/30/19 07/31/19 07/31/19 Range/Units 18:00 05:49 05:49 WBC 8.89 (4.0-11.0) K/uL RBC 4.53 (4.30-5.90) M/uL Hgb 12.6 (12.0-16.0) g/dL Hct 38.2 (36.0-46.0) % MCV 84.3 (80.0-98.0) fL MCH 27.8 (27.0-32.0) pg MCHC 33.0 (31.0-37.0) g/dL RDW Std Deviation 42.7 (28.0-62.0) fl RDW Coeff of Jamil 14 (11.0-15.0) % Plt Count 215 (150-400) K/uL MPV 10.00 (7.40-12.00) fL Neut % (Auto) 89.2 H (48.0-80.0) % Lymph % (Auto) 10.2 L (16.0-40.0) % [place] % (Auto) 0.6 (0.0-15.0) % Eos % (Auto) 0.0 (0.0-7.0) % Baso % (Auto) 0.0 (0.0-1.5) % Neut # (Auto) 7.9 H (1.4-5.7) K/uL Lymph # (Auto) 0.9 (0.6-2.4) K/uL [place] # (Auto) 0.1 (0.0-0.8) K/uL Eos # (Auto) 0.0 (0.0-0.7) K/uL Baso # (Auto) 0.0 (0.0-0.1) K/uL Nucleated RBC % 0.0 /100WBC Nucleated RBCs # 0 K/uL VBG pH (7.31-7.41) VBG pCO2 (35-45) mmHG VBG pO2 (30-40) mmHG VBG HCO3 (22-30) mEq/L VBG Total CO2 (41-51) mmol/L VBG Base Excess (-3.0-3.0) Sodium 140 (136-145) mmol/L Potassium 5.0 (3.5-5.1) mmol/L Chloride 105 (98-107) mmol/L Carbon Dioxide 25.8 (21.0-32.0) mmol/L BUN 22 H (7.0-18.0) mg/dL Creatinine 1.1 H (0.6-1.0) mg/dL Est Cr Clr Drug Dosing 51.80 mL/min Estimated GFR (MDRD) 50.2 ml/min Glucose 150 H (74-106) mg/dL Calcium 9.1 (8.5-10.1) mg/dL Troponin I (0.000-0.056) ng/mL Urine Color YELLOW Urine Appearance SLT CLOUDY Urine pH 6.0 (5.0-8.0) Ur Specific [place] >= 1.030 (1.001-1.035) Urine Protein NEGATIVE (NEGATIVE) mg/dL Urine Glucose (UA) NEGATIVE (NEGATIVE) mg/dL Urine Ketones NEGATIVE (NEGATIVE) mg/dL Urine Occult Blood NEGATIVE (NEGATIVE) Urine Nitrite POSITIVE H (NEGATIVE) Urine Bilirubin NEGATIVE (NEGATIVE) Urine Urobilinogen 1.0 (<2.0) EU/dL Ur Leukocyte Esterase NEGATIVE (NEGATIVE) Urine RBC 0-2 (0-2/HPF) Urine WBC 0-3 (0-5/HPF) Ur Epithelial Cells FEW (NONE-FEW) Urine Bacteria 4+ H (NEGATIVE) Urine Mucus LIGHT (NONE-MOD) Yran Results Last 24 Hours: Microbiology 07/30/19 18:00 Influenza Type A Antigen Screen - Final Nasopharyngeal Swab NEGATIVE INFLUENZA A VIRUS AG REFERENCE RANGE: NEGATIVE Influenza Type B Antigen Screen - Final NEGATIVE INFLUENZA B VIRUS AG REFERENCE RANGE: NEGATIVE Med Orders - Current: Current Medications Acetaminophen (Tylenol) 650 mg PO Q4H PRN PRN Reason: Pain Last Admin: 07/31/19 05:57 Dose: 650 mg Albuterol (Proventil Neb Soln) 2.5 mg NEB Q2H PRN PRN Reason: Shortness Of Breath/wheezing Albuterol/Ipratropium (Duoneb 3.0-0.5 Mg/3 Ml) 3 ml NEB Q4HRRT [facility] Last Admin: 07/31/19 06:15 Dose: 3 ml Benzonatate (Tessalon Perles) 100 mg PO TID PRN PRN Reason: Cough Clonidine HCl (Catapres) 0.1 mg PO Q12HR [facility] Last Admin: 07/30/19 21:58 Dose: 0.1 mg Escitalopram Oxalate (Lexapro) 20 mg PO DAILY [facility] Folic Acid (Folic Acid) 1 mg PO BEDTIME [facility] Last Admin: 07/30/19 21:58 Dose: 1 mg Heparin Sodium (Porcine) (Heparin Sodium) 5,000 units SUBCUT Q12H [facility] Last Admin: 07/30/19 21:55 Dose: 5,000 units Levofloxacin/Dextrose 750 mg/ (Premix) 150 mls @ 100 mls/hr IV Q24H [facility] Last Admin: 07/30/19 18:04 Dose: 100 mls/hr Thiamine HCl 100 mg/ Sodium (Chloride) 51 mls @ 204 mls/hr IV BEDTIME [facility] Last Admin: 07/30/19 21:51 Dose: 204 mls/hr Lisinopril (Prinivil) 10 mg PO DAILY [facility] Ondansetron HCl (Zofran) 4 mg IVPUSH Q4H PRN PRN Reason: Nausea Last Admin: 07/31/19 06:06 Dose: 4 mg Oxybutynin Chloride (Oxybutynin) 5 mg PO BEDTIME [facility] Budesonide/Formoterol [ Symbicort] 160-4.5 Mcg/Puff 6 Gm Inhaler 0 each INH BID [facility] Last Admin: 07/30/19 23:14 Dose: Not Given Varenicline Tartrate ([Chantix] 1 Mg) 1 each PO BID [facility] Prednisone (Prednisone) 40 mg PO WITHBREAKFAST [facility] Sodium Chloride (Saline Flush) 10 ml FLUSH ASDIRECTED PRN PRN Reason: Keep Vein Open Sodium Chloride (Saline Flush) 2.5 ml FLUSH ASDIRECTED PRN PRN Reason: Keep Vein Open Venlafaxine HCl (Effexor Xr) 75 mg PO DAILY [facility] Discontinued Medications Albuterol/Ipratropium (Duoneb 3.0-0.5 Mg/3 Ml) 3 ml NEB ONETIME ONE Stop: 07/30/19 12:47 Last Admin: 07/30/19 12:50 Dose: 3 ml Albuterol/Ipratropium (Duoneb 3.0-0.5 Mg/3 Ml) 3 ml NEB ONETIME ONE Stop: 07/30/19 13:51 Last Admin: 07/30/19 13:58 Dose: 3 ml Albuterol/Ipratropium (Duoneb 3.0-0.5 Mg/3 Ml) 3 ml NEB ONETIME ONE Stop: 07/30/19 14:21 Last Admin: 07/30/19 14:27 Dose: 3 ml Sodium Chloride (Normal Saline) 1,000 mls @ 125 mls/hr IV ONETIME ONE Stop: 07/31/19 00:26 Last Admin: 07/30/19 17:56 Dose: 125 mls/hr Ketorolac Tromethamine (Toradol) 15 mg IVPUSH ONETIME ONE Stop: 07/31/19 08:27 Methylprednisolone Sodium Succinate (Solu-Medrol) 125 mg IV ONETIME ONE Stop: 07/30/19 14:25 Last Admin: 07/30/19 14:33 Dose: 125 mg Methylprednisolone Sodium Succinate (Solu-Medrol) 80 mg IVPUSH Q8H [facility] Last Admin: 07/31/19 06:40 Dose: 80 mg - Exam General: Alert, Oriented, Cooperative, No Acute Distress HEENT: Pupils Equal, Pupils Reactive Lungs: Normal Respiratory Effort, Decreased Breath Sounds, Rhonchi, Wheezing ( scant heard to L lung lerma) Cardiovascular: Regular Rate, Regular Rhythm GI/Abdominal Exam: Normal Bowel Sounds, Soft, Non-Tender Extremities: Normal Inspection, Normal Range of Motion, Non-Tender Neurological: No New Focal Deficit Psy/Mental Status: Alert, Normal Affect, Normal Mood Sepsis Event Note - Evaluation Sepsis Screening Result: No Definite Risk - Focused Exam Vital Signs: Vital Signs Temp Pulse Resp BP BP Pulse Ox 07/31/19 03:45 97.5 F 75 20 152/79 H 96 07/30/19 23:13 97.8 F 82 20 132/73 96 07/30/19 21:58 158/88 H Date Exam was Performed: 07/31/19 Time Exam was Performed: 08:33 - Problem List & Annotations (1) COPD exacerbation SNOMED Code(s): 131922292, 052090968 Code(s): J44.1 - CHRONIC OBSTRUCTIVE PULMONARY DISEASE W (ACUTE) EXACERBATION Status: Acute Current Visit: Yes (2) Hx of hepatitis C SNOMED Code(s): 90629519726490, 86188504215844 Code(s): Z86.19 - PERSONAL HISTORY OF OTHER INFECTIOUS AND PARASITIC DISEASES Status: Chronic Current Visit: Yes (3) HTN (hypertension) SNOMED Code(s): 13822768 Code(s): I10 - ESSENTIAL (PRIMARY) HYPERTENSION Status: Chronic Current Visit: No Qualifiers: Hypertension type: essential hypertension Qualified Code(s): I10 - Essential (primary) hypertension (4) Depression SNOMED Code(s): 29052805 Code(s): F32.9 - MAJOR DEPRESSIVE DISORDER, SINGLE EPISODE, UNSPECIFIED Status: Chronic Current Visit: No Qualifiers: Depression Type: unspecified Qualified Code(s): F32.9 - Major depressive disorder, single episode, unspecified (5) Anxiety SNOMED Code(s): 71655208 Code(s): F41.9 - ANXIETY DISORDER, UNSPECIFIED Status: Chronic Current Visit: Yes (6) Oxygen dependent SNOMED Code(s): 818031928830 Code(s): Z99.81 - DEPENDENCE ON SUPPLEMENTAL OXYGEN Status: Chronic Current Visit: Yes (7) History of tobacco abuse SNOMED Code(s): 726672861, 796628406 Code(s): Z87.891 - PERSONAL HISTORY OF NICOTINE DEPENDENCE Status: Chronic Current Visit: Yes - Problem List Review Problem List Initiated/Reviewed/Updated: Yes - My Orders Last 24 Hours: My Active Orders 07/30/19 16:26 Intake and Output [RC] Q12H May Shower [RC] ASDIRECTED Oxygen Therapy [RC] PRN Up With Assistance [RC] ASDIRECTED VTE/DVT Education [RC] PER UNIT ROUTINE Vital Signs [RC] Q4H Sodium Chloride 0.9% [Saline Flush] 10 ml FLUSH ASDIRECTED PRN Sodium Chloride 0.9% [Saline Flush] 2.5 ml FLUSH ASDIRECTED PRN Saline Lock Insert [OM.PC] Routine Resuscitation Status Routine 07/30/19 16:30 Acetaminophen [Tylenol] 650 mg PO Q4H PRN Levofloxacin/Dextrose 5%-Water [Levaquin in D5W 750 MG/150 ML] 750 mg Premix Bag 1 bag IV Q24H Ondansetron [Zofran] 4 mg IVPUSH Q4H PRN 07/30/19 16:32 RT Aerosol Therapy [RC] ASDIRECTED 07/30/19 16:35 RT Aerosol Therapy [RC] ASDIRECTED Consult to Respiratory Therapy [Respiratory Care Assess and Treatment] [CONS] Routine Albuterol [Proventil Neb Soln] 2.5 mg NEB Q2H PRN 07/30/19 16:37 RT Post Treatment Assessment [RC] Click to Edit RT Pre-Treatment Assessment [RC] Click to Edit 07/30/19 18:00 CULTURE URINE [RM] Urgent Albuterol/Ipratropium [DuoNeb 3.0-0.5 MG/3 ML] 3 ml NEB Q4HRRT 07/30/19 21:00 Folic Acid 1 mg PO BEDTIME Heparin Sodium 5,000 units SUBCUT Q12H Patient's Own Medication [Ptom] See Dose Instructions INH BID Thiamine [Vitamin B-1] 100 mg Sodium Chloride 0.9% [Normal Saline] 50 ml IV BEDTIME cloNIDine [Catapres] 0.1 mg PO Q12HR 07/30/19 Dinner Regular Diet [DIET] 07/31/19 08:26 Benzonatate [Tessalon Perles] 100 mg PO TID PRN 07/31/19 09:00 Escitalopram [Lexapro] 20 mg PO DAILY Varenicline Tartrate [Chantix] 1 mg PO BID Venlafaxine [Effexor XR] 75 mg PO DAILY lisinopriL [Prinivil] 10 mg PO DAILY 07/31/19 21:00 Oxybutynin 5 mg PO BEDTIME 08/01/19 05:11 BMP [BASIC METABOLIC PANEL,BMP] [CHEM] AM CBC WITH AUTO DIFF [HEME] AM 08/01/19 08:00 predniSONE 40 mg PO WITHBREAKFAST - Plan Plan:: This 64 year old female admitted with COPD exacerbation 1. COPD exacerbation - Improved - Influenza swab negative exacerbation likely due to URI - Duonebs Q4hrs as well as PRN - Prednisone 40 mg daily starting tomorrow - Levaquin 750 mg IV for COPD exacerbation - Oxygen PRN, keep sats 88% or higher. Does wear 2 L NC at home continuously - Continue Symbicort and Incruse. 2. UTI - UC pending - Continue Levaquin as above. 3. HTN - Stable, will continue home medications of Clonidine and Lisinopril 4. Anxiety -Stable, continue home medications. Diet: Regular VTE prophylaxis: Heparin CODE Status: Full Code Disposition: 1 day
[2019-07-31] MEDS: Sodium Chloride 0.9% 2.5 ML Syringe FLUSH PRN ×2 (08:47→13:23)
[2019-07-31] MEDS: Escitalopram 10 MG Tab PO SCH (08:51)
[2019-07-31] MEDS: Venlafaxine 75 MG Cap.ER PO SCH (08:51)
[2019-07-31] MEDS: cloNIDine 0.1 MG Tab PO SCH ×2 (08:51→20:52)
[2019-07-31] MEDS: Lisinopril 10 MG Tab PO SCH (08:52)
[2019-07-31] MEDS: Heparin Sodium 5,000 Units/ML Vial SUBCUT SCH ×2 (08:53→20:52)
[2019-07-31] MEDS: UMECLIDINIUM BROMIDE 62.5 MG INH SCH ×2 (10:50→11:15)
[2019-07-31] MEDS: Varenicline Tartrate [Chantix] 1 MG PO SCH ×3 (10:50→20:55)
[2019-07-31] MEDS: FORMOTEROL INH SCH ×2 (11:24→20:54)
[2019-07-31] MEDS: BUDESONIDE INH SCH ×2 (11:24→20:54)
[2019-07-31] MEDS ORDERED: diphenhydrAMINE 50 MG/ML SDV IVPUSH ONE (12:37)
[2019-07-31] MEDS ORDERED: Metoclopramide 10 MG/2 ML SDV IVPUSH ONE (12:37)
[2019-07-31] MEDS: Levofloxacin/Dextrose 5%-Water 750 MG in Premix Bag 1 BAG IV SCH (17:16)
[2019-07-31] MEDS: Folic Acid 1 MG Tab PO SCH (20:51)
[2019-07-31] MEDS: Thiamine 100 MG in Sodium Chloride 0.9% 50 ML IV SCH (20:54)
[2019-07-31] MEDS ORDERED: Oxybutynin 5 MG Tab PO SCH (21:00)
[2019-08-01] MEDS: Albuterol/Ipratropium 3.0-0.5 MG/3 ML Neb Soln NEB SCH ×2 (02:14→06:15)
[2019-08-01 06:45] LABS: POTASSIUM,K 4.7 mmol/L (3.5-5.1)
[2019-08-01] MEDS ORDERED: predniSONE 20 MG Tab PO SCH (08:00)
[2019-08-01] MEDS: Escitalopram 10 MG Tab PO SCH (09:19)
[2019-08-01] MEDS: Venlafaxine 75 MG Cap.ER PO SCH (09:20)
[2019-08-01] MEDS: cloNIDine 0.1 MG Tab PO SCH (09:21)
[2019-08-01] MEDS: Lisinopril 10 MG Tab PO SCH (09:22)
[2019-08-01] MEDS: Heparin Sodium 5,000 Units/ML Vial SUBCUT SCH (09:23)
[2019-08-01 09:31] VITALS: BP 140/78
[2019-08-01] MEDS: UMECLIDINIUM BROMIDE 62.5 MG INH SCH (09:50)
[2019-08-01] MEDS: FORMOTEROL INH SCH (09:51)
[2019-08-01] MEDS: BUDESONIDE INH SCH (09:51)
[2019-08-01] MEDS: Varenicline Tartrate [Chantix] 1 MG PO SCH (09:52)
--- NOTE | 2019-08-01 10:36 | PCM.DCSUM1 ---
Discharge Summary - Hospital Course Brief History: This 64 year old female with pmh of oxygen dependent COPD, HTN, Hep C, anxiety and hx tobacco use presented to the ED with complaints of dyspnea and cough which started approximately 4 days ago. She was previously admitted for COPD exacerbation May 2019 and done well outpatient, but was recently around grandchildren who had some colds, then she started getting sick. She denies fevers or chills. Reports generalized malaise, non productive cough, dyspnea with exertion and significant wheezing, which does not improve with rescue inhaler. She uses Symbicort and Incruse at home as well as rescue inhaler. She called the clinic today for appointment but they directed her here due to severity of symptoms. She denies chest pain. Reports dysuria and lower abdominal along with foul smelling urine. She reports she feels dehydrated due to mild nausea and poor appetite with this cold. She denies tobacco use now, quit approximately 5 years ago, rare social alcohol use and no recreational drug use. In the ED no leukocytosis noted, mild BUN cr elevation, which is near baseline. CXR revealed emphysematous changes, no acute process noted. She was treated with Solumedrol and Duonebs in the ED. She reports feeling improved since then. She will be admitted observation for COPD exacerbation. PCP, Dr. Bran Diagnosis: Stroke: No - Discharge Data Discharge Date: 08/01/19 Discharge Disposition: Home, Self-Care 01 Condition: Stable - Referral to Home Health Primary Care Physician: Elda Bran MD - Discharge Diagnosis/Problem(s) (1) COPD exacerbation SNOMED Code(s): 792232549, 567328661 ICD Code: J44.1 - CHRONIC OBSTRUCTIVE PULMONARY DISEASE W (ACUTE) EXACERBATION Status: Acute (2) Hx of hepatitis C SNOMED Code(s): 79768022621922, 00088006891866 ICD Code: Z86.19 - PERSONAL HISTORY OF OTHER INFECTIOUS AND PARASITIC DISEASES Status: Chronic (3) HTN (hypertension) SNOMED Code(s): 64131471 ICD Code: I10 - ESSENTIAL (PRIMARY) HYPERTENSION Status: Chronic Qualifiers: Hypertension type: essential hypertension Qualified Code(s): I10 - Essential (primary) hypertension (4) Depression SNOMED Code(s): 48077076 ICD Code: F32.9 - MAJOR DEPRESSIVE DISORDER, SINGLE EPISODE, UNSPECIFIED Status: Chronic Qualifiers: Depression Type: unspecified Qualified Code(s): F32.9 - Major depressive disorder, single episode, unspecified (5) Anxiety SNOMED Code(s): 52046420 ICD Code: F41.9 - ANXIETY DISORDER, UNSPECIFIED Status: Chronic (6) Oxygen dependent SNOMED Code(s): 281735433275 ICD Code: Z99.81 - DEPENDENCE ON SUPPLEMENTAL OXYGEN Status: Chronic (7) History of tobacco abuse SNOMED Code(s): 073528542, 632886734 ICD Code: Z87.891 - PERSONAL HISTORY OF NICOTINE DEPENDENCE Status: Chronic - Patient Summary/Data Consults: Consultations 07/30/19 16:35 Consult to Respiratory Therapy [Respiratory Care Assess and Treatment] [CONS] Routine - Patient Instructions Diet: Regular Diet as Tolerated Activity: As Tolerated, No Strenuous Activities Showering/Bathing: May Shower Notify Provider of: Fever, Increased Pain, Swelling and Redness, Drainage, Nausea and/or Vomiting - Discharge Plan *PRESCRIPTION DRUG MONITORING PROGRAM REVIEWED*: Not Applicable *COPY OF PRESCRIPTION DRUG MONITORING REPORT IN PATIENT KARIE: Not Applicable Prescriptions/Med Rec: levoFLOXacin [Levaquin] 750 mg PO DAILY #5 tab predniSONE 40 mg PO WITHBREAKFAST #8 tablet Home Medications: Home Meds Albuterol [Proventil HFA] 1 puff INH QID PRN 09/22/18 [History] Albuterol/Ipratropium [DuoNeb 3.0-0.5 MG/3 ML] 3 ml NEB Q8HR PRN 09/22/18 [ History] Budesonide/Formoterol Fumarate [Symbicort 80-4.5 MCG] 1 puff IH BID 09/22/18 [ History] Venlafaxine HCl [Venlafaxine ER] 75 mg PO DAILY 09/22/18 [History] cloNIDine [Catapres] 0.1 mg PO BID 09/22/18 [History] Umeclidinium Irving [Incruse Ellipta*] 1 puff DAILY 05/19/19 [History] Varenicline Tartrate [Chantix] 1 mg PO BID 05/19/19 [History] Prazosin HCl [Prazosin] 2 mg PO DAILY 07/31/19 [History] levoFLOXacin [Levaquin] 750 mg PO DAILY #5 tab 08/01/19 [Rx] predniSONE 40 mg PO WITHBREAKFAST #8 tablet 08/01/19 [Rx] Oxygen Therapy Mode: Room Air Patient Handouts: Chronic Obstructive Pulmonary Disease Exacerbation, Easy-to- Read, Levofloxacin tablets, Prednisone tablets Referrals: Mandie Cantrell PA [Physician Control Center Operator] - 08/07/19 10:00 am - Discharge Summary/Plan Comment DC Time >30 min.: No Discharge Summary/Plan Comment: Admitting Diagnoses: COPD exacerbation UTI Discharge Diagnoses: COPD exacerbation UTI- E coli Other PMH: HTN Hep C Shanta was admitted for COPD exacerbation as well as UTI. She was treated with Duonebs and Solumedrol along with Levaquin. SHe steadily improved and today she reports she is feeling much better. UC returned with E coli sensitive to Levaquin. She is back on her baseline 2 L NC and breathing much better. She will be sent home on Prednison 40 mg X4 days and Levaquin for 5 more days. She is to continue at home inhalers. She is to see PCP in 1 week and return to ED or clinic sooner if concerns should arise - Patient Data Vitals - Most Recent: Last Vital Signs Temp 97.5 F 08/01/19 07:38 Pulse 62 08/01/19 07:38 Resp 18 08/01/19 07:38 BP 140/78 08/01/19 09:22 Pulse Ox 97 08/01/19 07:38 Weight - Most Recent: 62.686 kg I&O - Last 24 hours: Intake & Output 07/31/19 08/01/19 08/01/19 22:59 06:59 14:59 Intake Total 500 591 Output Total 500 400 Balance 0 191 Lab Results - Last 24 hrs: Laboratory Results - last 24 hr 08/01/19 08/01/19 Range/Units 06:06 06:06 WBC 15.15 H (4.0-11.0) K/uL RBC 4.08 L (4.30-5.90) M/uL Hgb 11.2 L (12.0-16.0) g/dL Hct 35.0 L (36.0-46.0) % MCV 85.8 (80.0-98.0) fL MCH 27.5 (27.0-32.0) pg MCHC 32.0 (31.0-37.0) g/dL RDW Std Deviation 43.5 (28.0-62.0) fl RDW Coeff of Jamil 14 (11.0-15.0) % Plt Count 190 (150-400) K/uL MPV 9.40 (7.40-12.00) fL Neut % (Auto) 76.9 (48.0-80.0) % Lymph % (Auto) 15.6 L (16.0-40.0) % [place] % (Auto) 7.3 (0.0-15.0) % Eos % (Auto) 0.1 (0.0-7.0) % Baso % (Auto) 0.1 (0.0-1.5) % Neut # (Auto) 11.7 H (1.4-5.7) K/uL Lymph # (Auto) 2.4 (0.6-2.4) K/uL [place] # (Auto) 1.1 H (0.0-0.8) K/uL Eos # (Auto) 0.0 (0.0-0.7) K/uL Baso # (Auto) 0.0 (0.0-0.1) K/uL Nucleated RBC % 0.0 /100WBC Nucleated RBCs # 0 K/uL Sodium 140 (136-145) mmol/L Potassium 4.7 (3.5-5.1) mmol/L Chloride 105 (98-107) mmol/L Carbon Dioxide 27.0 (21.0-32.0) mmol/L BUN 28 H (7.0-18.0) mg/dL Creatinine 1.2 H (0.6-1.0) mg/dL Est Cr Clr Drug Dosing 47.49 mL/min Estimated GFR (MDRD) 45.4 ml/min Glucose 112 H (74-106) mg/dL Calcium 8.9 (8.5-10.1) mg/dL RYLEE Results - Last 24 hrs: Microbiology 07/30/19 18:00 Urine Culture - Final Urine, Clean Catch Escherichia Coli Med Orders - Current: Current Medications Acetaminophen (Tylenol) 650 mg PO Q4H PRN PRN Reason: Pain Last Admin: 07/31/19 05:57 Dose: 650 mg Albuterol (Proventil Neb Soln) 2.5 mg NEB Q2H PRN PRN Reason: Shortness Of Breath/wheezing Albuterol/Ipratropium (Duoneb 3.0-0.5 Mg/3 Ml) 3 ml NEB Q4HRRT [facility] Last Admin: 08/01/19 06:15 Dose: 3 ml Benzonatate (Tessalon Perles) 100 mg PO TID PRN PRN Reason: Cough Last Admin: 07/31/19 08:52 Dose: 100 mg Budesonide/Formoterol Fumarate (Symbicort 160-4.5 Mcg) 0 gm INH BID [facility] Last Admin: 08/01/19 09:51 Dose: 2 puff Clonidine HCl (Catapres) 0.1 mg PO Q12HR [facility] Last Admin: 08/01/19 09:21 Dose: 0.1 mg Escitalopram Oxalate (Lexapro) 20 mg PO DAILY [facility] Last Admin: 08/01/19 09:19 Dose: 20 mg Folic Acid (Folic Acid) 1 mg PO BEDTIME [facility] Last Admin: 07/31/19 20:51 Dose: 1 mg Heparin Sodium (Porcine) (Heparin Sodium) 5,000 units SUBCUT Q12H [facility] Last Admin: 08/01/19 09:23 Dose: 5,000 units Levofloxacin/Dextrose 750 mg/ (Premix) 150 mls @ 100 mls/hr IV Q24H [facility] Last Admin: 07/31/19 17:16 Dose: 100 mls/hr Thiamine HCl 100 mg/ Sodium (Chloride) 51 mls @ 204 mls/hr IV BEDTIME [facility] Last Admin: 07/31/19 20:54 Dose: 204 mls/hr Lisinopril (Prinivil) 10 mg PO DAILY [facility] Last Admin: 08/01/19 09:22 Dose: 10 mg Ondansetron HCl (Zofran) 4 mg IVPUSH Q4H PRN PRN Reason: Nausea Last Admin: 07/31/19 06:06 Dose: 4 mg Oxybutynin Chloride (Oxybutynin) 5 mg PO BEDTIME [facility] Last Admin: 07/31/19 20:51 Dose: 5 mg Varenicline Tartrate ([Chantix] 1 Mg) 1 each PO BID [facility] Last Admin: 08/01/19 09:52 Dose: 1 each Umeclidinium Irving [Incruse Ellipta*] 62.5mg 1 Puff 1 each INH DAILY [facility] Last Admin: 08/01/19 09:50 Dose: 1 each Prednisone (Prednisone) 40 mg PO WITHBREAKFAST [facility] Last Admin: 08/01/19 09:18 Dose: 40 mg Sodium Chloride (Saline Flush) 10 ml FLUSH ASDIRECTED PRN PRN Reason: Keep Vein Open Sodium Chloride (Saline Flush) 2.5 ml FLUSH ASDIRECTED PRN PRN Reason: Keep Vein Open Last Admin: 07/31/19 13:23 Dose: 2.5 ml Venlafaxine HCl (Effexor Xr) 75 mg PO DAILY [facility] Last Admin: 08/01/19 09:20 Dose: 75 mg Discontinued Medications Albuterol/Ipratropium (Duoneb 3.0-0.5 Mg/3 Ml) 3 ml NEB ONETIME ONE Stop: 07/30/19 12:47 Last Admin: 07/30/19 12:50 Dose: 3 ml Albuterol/Ipratropium (Duoneb 3.0-0.5 Mg/3 Ml) 3 ml NEB ONETIME ONE Stop: 07/30/19 13:51 Last Admin: 07/30/19 13:58 Dose: 3 ml Albuterol/Ipratropium (Duoneb 3.0-0.5 Mg/3 Ml) 3 ml NEB ONETIME ONE Stop: 07/30/19 14:21 Last Admin: 07/30/19 14:27 Dose: 3 ml Diphenhydramine HCl (Benadryl) 25 mg IVPUSH ONETIME ONE Stop: 07/31/19 12:38 Last Admin: 07/31/19 13:14 Dose: 25 mg Sodium Chloride (Normal Saline) 1,000 mls @ 125 mls/hr IV ONETIME ONE Stop: 07/31/19 00:26 Last Admin: 07/30/19 17:56 Dose: 125 mls/hr Ketorolac Tromethamine (Toradol) 15 mg IVPUSH ONETIME ONE Stop: 07/31/19 08:27 Last Admin: 07/31/19 08:43 Dose: 15 mg Ketorolac Tromethamine (Toradol) 15 mg IVPUSH ONETIME ONE Stop: 07/31/19 12:38 Last Admin: 07/31/19 13:16 Dose: 15 mg Methylprednisolone Sodium Succinate (Solu-Medrol) 125 mg IV ONETIME ONE Stop: 07/30/19 14:25 Last Admin: 07/30/19 14:33 Dose: 125 mg Methylprednisolone Sodium Succinate (Solu-Medrol) 80 mg IVPUSH Q8H [facility] Last Admin: 07/31/19 06:40 Dose: 80 mg Metoclopramide HCl (Reglan) 10 mg IVPUSH ONETIME ONE Stop: 07/31/19 12:38 Last Admin: 07/31/19 13:07 Dose: 10 mg Budesonide/Formoterol [ Symbicort] 160-4.5 Mcg/Puff 6 Gm Inhaler 0 each INH BID [facility] Last Admin: 07/31/19 11:24 Dose: Not Given
[2019-08-01 11:42] VITALS: PULSE 76
== END 2019-08-01 12:30 | disposition home or self-care (01) ==
LOC: MW.ED 12:39 → MW.MS 15:51
PROVIDERS: ADMIT Internal Medicine; ATTEND Internal Medicine
DX: J44.1 Chronic obstructive pulmonary disease with (acute) exacerbation (principal); N39.0 Urinary tract infection, site not specified; B96.20 Unspecified Escherichia coli [E. coli] as the cause of diseases classified elsewhere; E86.0 Dehydration; I10 Essential (primary) hypertension; F32.9 Major depressive disorder, single episode, unspecified; F41.9 Anxiety disorder, unspecified; Z86.19 Personal history of other infectious and parasitic diseases; Z99.81 Dependence on supplemental oxygen; Z87.891 Personal history of nicotine dependence; Z79.899 Other long term (current) drug therapy
CPT/HCPCS: 36415; 71045; 80048; 81001; 82803; 84484; 85025; 87086; 87088; 87186; 87804; 93005; 94640; 96361; 96365; 96366; 96372; 96375; 96376; 99285; A9270; G0378; J1200; J1644; J1885; J1956; J2405; J2765; J2920; J2930; J3411; J7030; J7050; 96374; 99284; J7620-GY

== ENCOUNTER 2019-08-06 09:18 | Observation (INO) | payer MEDICAID, MEDICARE ==
[2019-08-06] MEDS ORDERED: Albuterol/Ipratropium 3.0-0.5 MG/3 ML Neb Soln NEB ONE ×2 (09:35→09:59)
[2019-08-06] MEDS ORDERED: methylPREDNISolone Sodium Succinate 125 MG/2 ML SDV IVPUSH ONE (09:37)
[2019-08-06] MEDS ORDERED: Magnesium Sulfate/Water 2 GM in Premix Bag 1 BAG IV ONE (09:38)
--- NOTE | 2019-08-06 09:39 | EDM.PDOC ---
ED HPI GENERAL MEDICAL PROBLEM - General Chief Complaint: Respiratory Problem Stated Complaint: CHEST PAIN Time Seen by Provider: 08/06/19 09:30 Source of Information: Reports: Patient History Limitations: Reports: No Limitations - History of Present Illness Severity: Mild (TO) Epigastric Pain Score (Numeric/FACES): 8 Chest Pain Score (Numeric/FACES): 7 - Related Data Allergies Allergy/AdvReac Type Severity Reaction Status Date / Time No Known Allergies Allergy Verified 08/06/19 15:09 Home Meds: Home Meds Albuterol [Proventil HFA] 1 puff INH QID PRN 09/22/18 [History] Albuterol/Ipratropium [DuoNeb 3.0-0.5 MG/3 ML] 3 ml NEB Q8HR PRN 09/22/18 [ History] Budesonide/Formoterol Fumarate [Symbicort 80-4.5 MCG] 1 puff IH BID 09/22/18 [ History] Venlafaxine HCl [Venlafaxine ER] 75 mg PO DAILY 09/22/18 [History] cloNIDine [Catapres] 0.1 mg PO BID 09/22/18 [History] Umeclidinium [place] [Incruse Ellipta*] 1 puff DAILY 05/19/19 [History] Varenicline Tartrate [Chantix] 1 mg PO BID 05/19/19 [History] Prazosin HCl [Prazosin] 2 mg PO DAILY 07/31/19 [History] levoFLOXacin [Levaquin] 750 mg PO DAILY #5 tab 08/01/19 [Rx] predniSONE 40 mg PO WITHBREAKFAST #8 tablet 08/01/19 [Rx] Albuterol Sulfate [Albuterol Sulfate Hfa] 2 puff INH ASDIRECTED PRN 08/06/19 [ History] Albuterol [Ventolin HFA] 2 puff INH ASDIRECTED PRN 08/06/19 [History] Escitalopram [Lexapro] 20 mg PO DAILY 08/06/19 [History] Cronin Seal/Echinacea Purpurea [Echinacea & Goldenseal] 1 cap PO DAILY 08/06/19 [History] Lisinopril [Zestril] 10 mg PO DAILY 08/06/19 [History] Oxybutynin 5 mg PO BEDTIME 08/06/19 [History] Zinc Gluconate [Zinc] 50 mg PO DAILY 08/06/19 [History] Past Medical History - Past Health History Medical/Surgical History: Denies Medical/Surgical History HEENT History: Reports: None Cardiovascular History: Reports: Hypertension Respiratory History: Reports: COPD, Other (See Below) Other Respiratory History: Home O2 @ 2LPM Gastrointestinal History: Reports: Diverticulosis Genitourinary History: Reports: Other (See Below) Other Genitourinary History: kidney stones [employer]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 Musculoskeletal History: Reports: None Neurological History: Reports: None Psychiatric History: Reports: Addiction, Anxiety, Depression Endocrine/Metabolic History: Reports: None Hematologic History: Reports: None Immunologic History: Reports: None Oncologic (Cancer) History: Reports: None Dermatologic History: Reports: None - Infectious Disease History Infectious Disease History: Reports: Hepatitis C Other Infectious Disease History: unsure of which kind of hepatitis - Past Surgical History Head Surgeries/Procedures: Reports: None HEENT Surgical History: Reports: None Cardiovascular Surgical History: Reports: None Respiratory Surgical History: Reports: None GI Surgical History: Reports: Appendectomy Female Surgical History: Reports: None Endocrine Surgical History: Reports: None Neurological Surgical History: Reports: None Musculoskeletal Surgical History: Reports: Other (See Below) Other Musculoskeletal Surgeries/Procedures:: rt shoulder surg Oncologic Surgical History: Reports: None Dermatological Surgical History: Reports: None Social & Family History - Family History Family Medical History: Noncontributory Endocrine/Metabolic: Reports: Diabetes, type II Oncologic: Reports: Hodgkin's Lymphoma - Caffeine Use Caffeine Use: Reports: Coffee, Soda Caffeine Use Comment: 5 cups avg per day - Living Situation & Occupation Living situation: Reports: Single ED ROS GENERAL - Review of Systems Review Of Systems: See Below Constitutional: Reports: No Symptoms HEENT: Reports: No Symptoms Respiratory: Reports: Shortness of Breath (mild) Cardiovascular: Reports: Chest Pain (with pressure and mild SOB) Endocrine: Reports: No Symptoms GI/Abdominal: Reports: Nausea : Reports: No Symptoms Musculoskeletal: Reports: No Symptoms Skin: Reports: No Symptoms Neurological: Reports: No Symptoms ED EXAM, GENERAL - Physical Exam Exam: See Below Exam Limited By: No Limitations General Appearance: Alert, WD/WN, No Apparent Distress Eye Exam: Bilateral Eye: EOMI, Normal Inspection, PERRL Ears: Normal External Exam, Normal Canal, Hearing Grossly Normal, Normal TMs Ear Exam: Bilateral Ear: Auricle Normal, Canal Normal, TM normal Nose: Normal Inspection, Normal Mucosa, No Blood Throat/Mouth: Normal Inspection, Normal Lips, Normal Teeth, Normal Gums, Normal Oropharynx, Normal Voice, No Airway Compromise Head: Atraumatic, Normocephalic Neck: Normal Inspection, Supple, Non-Tender, Full Range of Motion Respiratory/Chest: No Respiratory Distress, Lungs Clear, Normal Breath Sounds, No Accessory Muscle Use, Chest Non-Tender Cardiovascular: Normal Peripheral Pulses, Regular Rate, Rhythm, No Edema, No Gallop, Systolic Murmur (systolic ejection murmur at the apex 2/6 without radiation) Peripheral Pulses: 3+: Carotid (L), Carotid (R), Radial (L), Radial (R), Dorsalis Pedis (L), Dorsalis Pedis (R) GI/Abdominal: Normal Bowel Sounds, Soft, Non-Tender, No Organomegaly, No Distention, No Abnormal Bruit, No Mass (Female) Exam: Deferred Rectal (Female) Exam: Deferred Back Exam: Normal Inspection Extremities: Normal Inspection, Normal Range of Motion, Non-Tender, Normal Capillary Refill, No Pedal Edema Neurological: Alert, Oriented, CN II-XII Intact, Normal Cognition, Normal Reflexes, No Motor/Sensory Deficits Psychiatric: Normal Affect, Normal Mood Skin Exam: Warm, Dry, Intact, Normal Color, No Rash Lymphatic: No Adenopathy Course - Vital Signs Text/Narrative:: With the exception of an elevated white count, all cardiac work up is negative. I spoke with Dr. King regarding this patient. She will be admitted to [facility] for further evaluation. The patient agrees with the admission plan. Last Recorded V/S: Last Vital Signs Temp 97.4 F 08/08/19 04:00 Pulse 82 08/08/19 04:00 Resp 20 08/08/19 04:00 BP 135/79 08/08/19 04:00 Pulse Ox 96 08/08/19 04:00 - Orders/Labs/Meds Orders: Medication Orders Acetaminophen (Tylenol) 650 mg PO Q4H PRN PRN Reason: Pain (Mild 1-3)/fever Last Admin: 08/06/19 23:55 Dose: 650 mg Albuterol/Ipratropium (Duoneb 3.0-0.5 Mg/3 Ml) 3 ml NEB Q4HRRT [facility] Last Admin: 08/08/19 06:14 Dose: 3 ml Admin: 08/08/19 01:51 Dose: 3 ml Admin: 08/07/19 21:06 Dose: 3 ml Admin: 08/07/19 17:41 Dose: 3 ml Admin: 08/07/19 14:07 Dose: 3 ml Admin: 08/07/19 09:29 Dose: 3 ml Admin: 08/07/19 05:58 Dose: 3 ml Admin: 08/07/19 01:32 Dose: 3 ml Admin: 08/06/19 21:36 Dose: 3 ml Admin: 08/06/19 17:40 Dose: 3 ml Admin: 08/06/19 14:30 Dose: 3 ml Azithromycin (Zithromax) 500 mg PO Q24H [facility] Last Admin: 08/07/19 16:00 Dose: 500 mg Admin: 08/06/19 16:39 Dose: 500 mg Benzonatate (Tessalon Perles) 200 mg PO TID PRN PRN Reason: Cough Last Admin: 08/06/19 17:54 Dose: 200 mg Clonidine HCl (Catapres) 0.1 mg PO BID [facility] Last Admin: 08/07/19 21:27 Dose: 0.1 mg Admin: 08/07/19 08:07 Dose: 0.1 mg Admin: 08/06/19 22:36 Dose: 0.1 mg Docusate Sodium (Colace) 100 mg PO BID PRN PRN Reason: Constipation Escitalopram Oxalate (Lexapro) 20 mg PO DAILY [facility] Last Admin: 08/07/19 08:05 Dose: 20 mg Magnesium Hydroxide (Milk Of Magnesia) 30 ml PO DAILY PRN PRN Reason: Constipation Methylprednisolone Sodium Succinate (Solu-Medrol) 40 mg IVPUSH DAILY [facility] Nitroglycerin (Nitrostat) 0.4 mg SL Q5M PRN PRN Reason: Chest Pain Last Admin: 08/07/19 07:54 Dose: 0.4 mg Admin: 08/07/19 07:46 Dose: 0.4 mg Oxybutynin Chloride (Oxybutynin) 5 mg PO BEDTIME [facility] Last Admin: 08/07/19 21:27 Dose: 5 mg Admin: 08/06/19 21:24 Dose: 5 mg Pantoprazole Sodium (Protonix) 40 mg PO ACBREAKFAST [facility] Last Admin: 08/08/19 06:46 Dose: 40 mg Admin: 08/07/19 06:30 Dose: 40 mg Budesonide/Formoterol Fumarate 1 Puff 1 each INH BID [facility] Last Admin: 08/07/19 21:06 Dose: 1 each Admin: 08/07/19 08:16 Dose: 1 each Admin: 08/06/19 21:36 Dose: 1 each Umeclidinium [place] [Incruse Ellipta*] 1 Puff 1 each INH DAILY [facility] Last Admin: 08/07/19 08:16 Dose: 1 each Varenicline Tartrate ([Chantix] 1 Mg) 1 each PO BID [facility] Last Admin: 08/07/19 21:27 Dose: 1 each Admin: 08/07/19 08:15 Dose: 1 each Admin: 08/06/19 21:21 Dose: 1 each Zinc Gluconate 50 Mg 1 each PO DAILY [facility] Last Admin: 08/07/19 08:17 Dose: Not Given Sodium Chloride (Saline Flush) 10 ml FLUSH ASDIRECTED PRN PRN Reason: Keep Vein Open Sodium Chloride (Saline Flush) 2.5 ml FLUSH ASDIRECTED PRN PRN Reason: Keep Vein Open Sucralfate (Carafate) 1 gm PO TIDAC [facility] Last Admin: 08/08/19 06:46 Dose: 1 gm Admin: 08/07/19 16:00 Dose: 1 gm Admin: 08/07/19 11:40 Dose: 1 gm Venlafaxine HCl (Effexor Xr) 75 mg PO DAILY [facility] Last Admin: 08/07/19 08:07 Dose: 75 mg Labs: Laboratory Tests 08/06/19 08/06/19 08/06/19 Range/Units 09:37 09:37 09:37 WBC 15.86 H (4.0-11.0) K/uL RBC 4.79 (4.30-5.90) M/uL Hgb 13.2 (12.0-16.0) g/dL Hct 41.3 (36.0-46.0) % MCV 86.2 (80.0-98.0) fL MCH 27.6 (27.0-32.0) pg MCHC 32.0 (31.0-37.0) g/dL RDW Std Deviation 45.0 (28.0-62.0) fl RDW Coeff of Jamil 14 (11.0-15.0) % Plt Count 264 (150-400) K/uL MPV 9.00 (7.40-12.00) fL Neut % (Auto) 56.2 (48.0-80.0) % Lymph % (Auto) 32.8 (16.0-40.0) % [place] % (Auto) 7.6 (0.0-15.0) % Eos % (Auto) 3.2 (0.0-7.0) % Baso % (Auto) 0.2 (0.0-1.5) % Neut # (Auto) 8.9 H (1.4-5.7) K/uL Lymph # (Auto) 5.2 H (0.6-2.4) K/uL [place] # (Auto) 1.2 H (0.0-0.8) K/uL Eos # (Auto) 0.5 (0.0-0.7) K/uL Baso # (Auto) 0.0 (0.0-0.1) K/uL Nucleated RBC % 0.0 /100WBC Nucleated RBCs # 0 K/uL Sodium 137 (136-145) mmol/L Potassium 5.0 (3.5-5.1) mmol/L Chloride 99 (98-107) mmol/L Carbon Dioxide 27.7 (21.0-32.0) mmol/L BUN 54 H (7.0-18.0) mg/dL Creatinine 2.0 H (0.6-1.0) mg/dL Est Cr Clr Drug Dosing 27.63 mL/min Estimated GFR (MDRD) 25.2 ml/min Glucose 90 (74-106) mg/dL Calcium 9.6 (8.5-10.1) mg/dL Magnesium 2.2 (1.8-2.4) mg/dL Total Bilirubin 0.6 (0.2-1.0) mg/dL AST 19 (15-37) IU/L ALT 21 (14-63) IU/L Alkaline Phosphatase 77 (46-116) U/L Troponin I < 0.050 (0.000-0.056) ng/mL B-Natriuretic Peptide 36 (<100) PG/ML Total Protein 7.8 (6.4-8.2) g/dL Albumin 4.2 (3.4-5.0) g/dL Globulin 3.6 (2.6-4.0) g/dL Albumin/Globulin Ratio 1.2 (0.9-1.6) Meds: Medications Generic Name Dose Route Start Last Admin Trade Name Freq PRN Reason Stop Dose Admin Acetaminophen 650 mg 08/06/19 13:38 08/06/19 23:55 Tylenol PO 650 mg Q4H PRN Administration Pain (Mild 1-3)/fever Albuterol/Ipratropium 3 ml 08/06/19 14:00 08/08/19 06:14 Duoneb 3.0-0.5 Mg/3 Ml NEB 3 ml Q4HRRT YASIR Administration Azithromycin 500 mg 08/06/19 16:00 08/07/19 16:00 Zithromax PO 500 mg Q24H YASIR Administration Benzonatate 200 mg 08/06/19 13:42 08/06/19 17:54 Tessalon Perles PO 200 mg TID PRN Administration Cough Clonidine HCl 0.1 mg 08/06/19 21:00 08/07/19 21:27 Catapres PO 0.1 mg BID YASIR Administration Docusate Sodium 100 mg 08/07/19 14:44 Colace PO BID PRN Constipation Escitalopram Oxalate 20 mg 08/07/19 09:00 08/07/19 08:05 Lexapro PO 20 mg DAILY YASIR Administration Magnesium Hydroxide 30 ml 08/07/19 14:44 Milk Of Magnesia PO DAILY PRN Constipation Methylprednisolone Sodium Succinate 40 mg 08/08/19 09:00 Solu-Medrol IVPUSH DAILY [facility] Nitroglycerin 0.4 mg 08/07/19 07:19 08/07/19 07:54 Nitrostat SL 0.4 mg Q5M PRN Administration Chest Pain Oxybutynin Chloride 5 mg 08/06/19 21:00 08/07/19 21:27 Oxybutynin PO 5 mg BEDTIME YASIR Administration Pantoprazole Sodium 40 mg 08/07/19 07:30 08/08/19 06:46 Protonix PO 40 mg ACBREAKFAST YASIR Administration Budesonide/ 1 each 08/06/19 21:00 08/07/19 21:06 Formoterol Fumarate INH 1 each 1 Puff BID YASIR Administration Umeclidinium [place] 1 each 08/07/19 09:00 08/07/19 08:16 [Incruse Ellipta*] INH 1 each 1 Puff DAILY [facility]ASIR Administration Varenicline Tartrate 1 each 08/06/19 21:00 08/07/19 21:27 [Chantix] 1 Mg PO 1 each BID YASIR Administration Zinc Gluconate 50 Mg 1 each 08/07/19 09:00 08/07/19 08:17 PO Not Given DAILY YASIR Sodium Chloride 10 ml 08/06/19 13:38 Saline Flush FLUSH ASDIRECTED PRN Keep Vein Open Sodium Chloride 2.5 ml 08/06/19 13:38 Saline Flush FLUSH ASDIRECTED PRN Keep Vein Open Sucralfate 1 gm 08/07/19 11:30 08/08/19 06:46 Carafate PO 1 gm TIDAC YASIR Administration Venlafaxine HCl 75 mg 08/07/19 09:00 08/07/19 08:07 Effexor Xr PO 75 mg DAILY [facility]IR Administration Discontinued Medications Generic Name Dose Route Start Last Admin Trade Name Freq PRN Reason Stop Dose Admin Albuterol/Ipratropium 3 ml 08/06/19 09:35 08/06/19 10:00 Duoneb 3.0-0.5 Mg/3 Ml NEB 08/06/19 09:36 3 ml ONETIME ONE Administration Albuterol/Ipratropium Confirm 08/06/19 09:54 08/06/19 10:00 Duoneb 3.0-0.5 Mg/3 Ml Administered 08/06/19 09:55 6 ml Dose Administration 6 ml .ROUTE .STK-MED ONE Albuterol/Ipratropium 6 ml 08/06/19 09:59 08/06/19 10:01 Duoneb 3.0-0.5 Mg/3 Ml NEB 08/06/19 10:00 Not Given ONETIME ONE Aspirin 325 mg 08/07/19 07:25 08/07/19 07:45 Aspirin PO 08/07/19 07:26 325 mg ONETIME ONE Administration Aspirin 325 mg 08/07/19 07:45 08/07/19 07:40 Aspirin PO 08/07/19 07:46 Not Given ONETIME ONE Aspirin Confirm 08/07/19 07:41 08/07/19 09:39 Aspirin Administered 08/07/19 07:42 Not Given Dose 325 mg .ROUTE .STK-MED ONE Calcium Gluconate 1 gm 08/07/19 07:40 08/07/19 07:52 Calcium Gluconate IVPUSH 08/07/19 07:41 1 gm ONETIME ONE Administration Calcium Gluconate Confirm 08/07/19 07:51 08/07/19 09:40 Calcium Gluconate Administered 08/07/19 07:52 Not Given Dose 1 gm .ROUTE .STK-MED ONE Al Hydroxide/Mg Hydroxide 15 0 ml 08/06/19 11:11 08/06/19 11:33 ml/ Metoclopramide HCl 5 mg/ PO 08/06/19 11:12 1 each Lidocaine HCl 5 ml STAT ONE Administration Al Hydroxide/Mg Hydroxide 15 0 ml 08/07/19 08:30 08/07/19 08:55 ml/ Lidocaine HCl 5 ml PO 08/07/19 08:31 20 each ONETIME ONE Administration Magnesium Sulfate 2 gm/ Premix 50 mls @ 50 mls/hr 08/06/19 09:38 08/06/19 10: 24 IV 08/06/19 10:37 Not Given ONETIME ONE Magnesium Sulfate 1 gm/ Sodium 52 mls @ 52 mls/hr 08/06/19 10:00 08/06/19 10: 08 Chloride IV 08/06/19 10:59 52 mls/hr ONETIME ONE Administration Sodium Chloride 1,000 mls @ 75 mls/hr 08/06/19 15:15 08/07/19 03:45 Normal Saline IV 75 mls/hr Q13H YASIR Administration Pantoprazole Sodium 40 mg/ 10 mls @ 300 mls/hr 08/06/19 15:05 08/06/19 15:25 Sodium Chloride IV 08/06/19 15:06 300 mls/hr NOW ONE Administration Lisinopril 10 mg 08/07/19 09:00 Prinivil PO DAILY YASIR Methylprednisolone Sodium Succinate 125 mg 08/06/19 09:37 08/06/19 10:08 Solu-Medrol IVPUSH 08/06/19 09:38 125 mg ONETIME ONE Administration Methylprednisolone Sodium Succinate 40 mg 08/06/19 16:00 08/07/19 08:08 Solu-Medrol IVPUSH 40 mg Q8H YASIR Administration Nitroglycerin Confirm 08/07/19 07:42 08/07/19 09:40 Nitrostat Administered 08/07/19 07:43 Not Given Dose 0.4 mg .ROUTE .STK-MED ONE Prazosin HCl 2 mg 08/07/19 09:00 Minpress PO DAILY YASIR Departure - Departure Time of Disposition: 14:02 (08/06/2019) Disposition: Refer to Observation Condition: Good Clinical Impression: Chest pain with low risk of acute coronary syndrome - Discharge Information *PRESCRIPTION DRUG MONITORING PROGRAM REVIEWED*: Yes *COPY OF PRESCRIPTION DRUG MONITORING REPORT IN PATIENT KARIE: Yes Sepsis Event Note - Evaluation Sepsis Screening Result: No Definite Risk - Focused Exam Date Exam was Performed: 08/08/19 Time Exam was Performed: 07:24
[2019-08-06] MEDS ORDERED: Albuterol/Ipratropium 3.0-0.5 MG/3 ML Neb Soln ONE (09:54)
--- NOTE | 2019-08-06 10:18 | CR ---
Chest: Portable view of the chest was obtained. Comparison: Prior chest x-ray of 07/30/19. Heart size and mediastinum are normal. Emphysematous change is noted. Stable scar is noted within the right mid lung. Lungs otherwise are clear. Bony structures are grossly intact. Impression: 1. Emphysematous change. 2. Stable right mid lung scar. 3. Nothing acute is seen. Diagnostic code #2 This report was dictated in [place] Standard Time
[2019-08-06 10:19] LABS: CARBON DIOXIDE,CO2 27.7 mmol/L (21.0-32.0); CHLORIDE,CL 99 mmol/L (98-107); GLUCOSE RANDOM 90 mg/dL (74-106); SODIUM,NA 137 mmol/L (136-145)
[2019-08-06 10:30] LABS: BLOOD UREA NITROGEN,BUN 54 mg/dL (7.0-18.0)
[2019-08-06] MEDS ORDERED: Alum Hydrox/Mag Hydrox/Simeth 15 ML, Metoclopramide 5 MG, Lidocaine 2% 5 ML PO ONE ×3 (11:11)
[2019-08-06] MEDS ORDERED: Sodium Chloride 0.9% 2.5 ML Syringe FLUSH PRN (13:38)
[2019-08-06] MEDS ORDERED: Acetaminophen 325 MG Tab PO PRN (13:38)
[2019-08-06] MEDS ORDERED: Sodium Chloride 0.9% 10 ML Syringe FLUSH PRN (13:38)
[2019-08-06] MEDS ORDERED: Benzonatate 100 MG Cap PO PRN (13:42)
--- NOTE | 2019-08-06 13:46 | PCM.HP.2 ---
H&P History of Present Illness - General Date of Service: 08/06/19 Admit Problem/Dx: Admission Diagnosis/Problem Admission Diagnosis/Problem COPD, Severe chronic obstructive pulmonary disease Source of Information: Patient History Limitations: Reports: No Limitations - History of Present Illness Initial Comments - Free Text/Narative: This 64 year old female with pmh of oxygen dependent COPD, HTN, Hep C, anxiety and hx tobacco use presented to the ED with complaints of dyspnea and cough along with nausea, vomiting and heartburn that started on Sunday. She was previously admitted for COPD exacerbation and discharged August 01 with Prednisone and Levaquin. She reports she picked up her meds and the pharmacy also gave her a bottle of Prazosin. She started taking these all and felt very light headed and dizzy, so on Sunday she stopped all the new medicines and haven't taken any since. SHe has felt nauseated and not eating or drinking much. She denies fevers or chills. Reports generalized malaise, non productive cough, dyspnea with exertion and significant wheezing. She uses Symbicort and Incruse at home as well as rescue inhaler. She denies chest pain. She denies tobacco use now, quit approximately 5 years ago, rare social alcohol use, used to use heavily and no recreational drug use. In the ED leukocytosis noted at 15,000, mild BUN cr elevation, 54/2.0. CXR reviews emphysematous changes, no acute process noted. She was treated with Solumedrol and Duonebs in the ED. She reports feeling improved since then. She will be admitted observation for COPD exacerbation and dehydration. Epigastric Pain Score (Numeric/FACES): 8 - Related Data Allergies/Adverse Reactions: Allergies Allergy/AdvReac Type Severity Reaction Status Date / Time No Known Allergies Allergy Verified 08/06/19 15:09 Home Medications: Home Meds Albuterol [Proventil HFA] 1 puff INH QID PRN 09/22/18 [History] Albuterol/Ipratropium [DuoNeb 3.0-0.5 MG/3 ML] 3 ml NEB Q8HR PRN 09/22/18 [ History] Budesonide/Formoterol Fumarate [Symbicort 80-4.5 MCG] 1 puff IH BID 09/22/18 [ History] Venlafaxine HCl [Venlafaxine ER] 75 mg PO DAILY 09/22/18 [History] cloNIDine [Catapres] 0.1 mg PO BID 09/22/18 [History] Umeclidinium [place] [Incruse Ellipta*] 1 puff DAILY 05/19/19 [History] Varenicline Tartrate [Chantix] 1 mg PO BID 05/19/19 [History] Prazosin HCl [Prazosin] 2 mg PO DAILY 07/31/19 [History] levoFLOXacin [Levaquin] 750 mg PO DAILY #5 tab 08/01/19 [Rx] predniSONE 40 mg PO WITHBREAKFAST #8 tablet 08/01/19 [Rx] Albuterol Sulfate [Albuterol Sulfate Hfa] 2 puff INH ASDIRECTED PRN 08/06/19 [ History] Albuterol [Ventolin HFA] 2 puff INH ASDIRECTED PRN 08/06/19 [History] Escitalopram [Lexapro] 20 mg PO DAILY 08/06/19 [History] Cronin Seal/Echinacea Purpurea [Echinacea & Goldenseal] 1 cap PO DAILY 08/06/19 [History] Lisinopril [Zestril] 10 mg PO DAILY 08/06/19 [History] Oxybutynin 5 mg PO BEDTIME 08/06/19 [History] Zinc Gluconate [Zinc] 50 mg PO DAILY 08/06/19 [History] Past Medical History - Past Health History Medical/Surgical History: Denies Medical/Surgical History HEENT History: Reports: None Cardiovascular History: Reports: Hypertension Respiratory History: Reports: COPD, Other (See Below) Other Respiratory History: Home O2 @ 2LPM Gastrointestinal History: Reports: Diverticulosis Genitourinary History: Reports: Other (See Below) Other Genitourinary History: kidney stones [employer] History: Reports: None Musculoskeletal History: Reports: None Neurological History: Reports: None Psychiatric History: Reports: Addiction, Anxiety, Depression Endocrine/Metabolic History: Reports: None Hematologic History: Reports: None Immunologic History: Reports: None Oncologic (Cancer) History: Reports: None Dermatologic History: Reports: None - Infectious Disease History Infectious Disease History: Reports: Hepatitis C Other Infectious Disease History: unsure of which kind of hepatitis - Past Surgical History Head Surgeries/Procedures: Reports: None HEENT Surgical History: Reports: None Cardiovascular Surgical History: Reports: None Respiratory Surgical History: Reports: None GI Surgical History: Reports: Appendectomy Female Surgical History: Reports: None Endocrine Surgical History: Reports: None Neurological Surgical History: Reports: None Musculoskeletal Surgical History: Reports: Other (See Below) Other Musculoskeletal Surgeries/Procedures:: rt shoulder surg Oncologic Surgical History: Reports: None Dermatological Surgical History: Reports: None Social & Family History - Family History Family Medical History: Noncontributory Endocrine/Metabolic: Reports: Diabetes, type II Oncologic: Reports: Hodgkin's Lymphoma - Tobacco Use Smoking Status *Q: Former Smoker Used Tobacco, but Quit: Yes Month/Year Tobacco Last Used: 2 months - Caffeine Use Caffeine Use: Reports: Coffee, Soda Caffeine Use Comment: 5 cups avg per day - Recreational Drug Use Recreational Drug Use: No - Living Situation & Occupation Living situation: Reports: Single H&P Review of Systems - Review of Systems: Review Of Systems: See Below General: Reports: Malaise, Weakness, Fatigue. Denies: Fever, Chills Pulmonary: Reports: Shortness of Breath, Wheezing, Cough. Denies: Sputum, Hemoptysis Cardiovascular: Reports: Lightheadedness. Denies: Chest Pain Gastrointestinal: Reports: Decreased Appetite, Nausea, Vomiting. Denies: Abdominal Pain, Black Stool, Bloody Stool Genitourinary: Reports: No Symptoms. Denies: Dysuria, Frequency, Burning Skin: Reports: No Symptoms Psychiatric: Reports: No Symptoms Neurological: Reports: No Symptoms Hematologic/Lymphatic: Reports: No Symptoms Immunologic: Reports: No Symptoms Exam - Exam Exam: See Below - Vital Signs Vital Signs: Last Vital Signs Temp 96.6 F L 08/06/19 09:26 Pulse 85 08/06/19 09:26 Resp 22 H 08/06/19 09:26 BP 136/77 08/06/19 09:26 Pulse Ox 97 08/06/19 09:26 Weight: 60.8 kg - Exam Quality Assessment: Supplemental Oxygen, DVT Prophylaxis General: Alert, Oriented HEENT: Conjunctiva Clear. No: Mucosa Moist & [place] (dry) Lungs: Wheezing. No: Normal Respiratory Effort Cardiovascular: Regular Rate, Regular Rhythm GI/Abdominal Exam: Normal Bowel Sounds, Soft, Non-Tender Back Exam: Normal Inspection, Full Range of Motion Extremities: Normal Inspection, Normal Range of Motion, Non-Tender, No Pedal Edema Skin: Warm Neurological: Cranial Nerves Intact Neuro Extensive - Mental Status: Alert, Oriented x3 Neuro Extensive - Motor, Sensory, Reflexes: CN II-XII Intact, Normal Gait Psychiatric: Alert, Normal Affect, Normal Mood - Patient Data Lab Results Last 24 hrs: Laboratory Results - last 24 hr 08/06/19 08/06/19 08/06/19 Range/Units 09:37 09:37 09:37 WBC 15.86 H (4.0-11.0) K/uL RBC 4.79 (4.30-5.90) M/uL Hgb 13.2 (12.0-16.0) g/dL Hct 41.3 (36.0-46.0) % MCV 86.2 (80.0-98.0) fL MCH 27.6 (27.0-32.0) pg MCHC 32.0 (31.0-37.0) g/dL RDW Std Deviation 45.0 (28.0-62.0) fl RDW Coeff of Jamil 14 (11.0-15.0) % Plt Count 264 (150-400) K/uL MPV 9.00 (7.40-12.00) fL Neut % (Auto) 56.2 (48.0-80.0) % Lymph % (Auto) 32.8 (16.0-40.0) % [place] % (Auto) 7.6 (0.0-15.0) % Eos % (Auto) 3.2 (0.0-7.0) % Baso % (Auto) 0.2 (0.0-1.5) % Neut # (Auto) 8.9 H (1.4-5.7) K/uL Lymph # (Auto) 5.2 H (0.6-2.4) K/uL [place] # (Auto) 1.2 H (0.0-0.8) K/uL Eos # (Auto) 0.5 (0.0-0.7) K/uL Baso # (Auto) 0.0 (0.0-0.1) K/uL Nucleated RBC % 0.0 /100WBC Nucleated RBCs # 0 K/uL Sodium 137 (136-145) mmol/L Potassium 5.0 (3.5-5.1) mmol/L Chloride 99 (98-107) mmol/L Carbon Dioxide 27.7 (21.0-32.0) mmol/L BUN 54 H (7.0-18.0) mg/dL Creatinine 2.0 H (0.6-1.0) mg/dL Est Cr Clr Drug Dosing 27.63 mL/min Estimated GFR (MDRD) 25.2 ml/min Glucose 90 (74-106) mg/dL Calcium 9.6 (8.5-10.1) mg/dL Magnesium 2.2 (1.8-2.4) mg/dL Total Bilirubin 0.6 (0.2-1.0) mg/dL AST 19 (15-37) IU/L ALT 21 (14-63) IU/L Alkaline Phosphatase 77 (46-116) U/L Troponin I < 0.050 (0.000-0.056) ng/mL B-Natriuretic Peptide 36 (<100) PG/ML Total Protein 7.8 (6.4-8.2) g/dL Albumin 4.2 (3.4-5.0) g/dL Globulin 3.6 (2.6-4.0) g/dL Albumin/Globulin Ratio 1.2 (0.9-1.6) Result Diagrams: 08/06/19 09:37 08/06/19 09:37 Sepsis Event Note - Evaluation Sepsis Screening Result: No Definite Risk - Focused Exam Vital Signs: Vital Signs Temp Pulse Resp BP Pulse Ox 08/06/19 09:26 96.6 F L 85 22 H 136/77 97 Date Exam was Performed: 08/06/19 Time Exam was Performed: 15:53 - Problem List (1) COPD (chronic obstructive pulmonary disease) SNOMED Code(s): 27095501 ICD Code: J44.9 - CHRONIC OBSTRUCTIVE PULMONARY DISEASE, UNSPECIFIED Status : Chronic Current Visit: No Qualifiers: COPD type: COPD with acute exacerbation Qualified Code(s): J44.1 - Chronic obstructive pulmonary disease with (acute) exacerbation (2) ETOH abuse SNOMED Code(s): 87735451 ICD Code: F10.10 - ALCOHOL ABUSE, UNCOMPLICATED Status: Chronic Current Visit: No (3) HTN (hypertension) SNOMED Code(s): 63876170 ICD Code: I10 - ESSENTIAL (PRIMARY) HYPERTENSION Status: Chronic Current Visit: No Qualifiers: Hypertension type: essential hypertension Qualified Code(s): I10 - Essential (primary) hypertension (4) History of tobacco abuse SNOMED Code(s): 358283733, 676134938 ICD Code: Z87.891 - PERSONAL HISTORY OF NICOTINE DEPENDENCE Status: Chronic Current Visit: No (5) Hx of hepatitis C SNOMED Code(s): 55046923623499, 55225203946140 ICD Code: Z86.19 - PERSONAL HISTORY OF OTHER INFECTIOUS AND PARASITIC DISEASES Status: Chronic Current Visit: No (6) Oxygen dependent SNOMED Code(s): 925794957304 ICD Code: Z99.81 - DEPENDENCE ON SUPPLEMENTAL OXYGEN Status: Chronic Current Visit: No Problem List Initiated/Reviewed/Updated: Yes Orders Last 24hrs: Active Orders 24 hr Category Date Time Status Admission Status [Patient Status] [ADT] Stat ADT 08/06/19 13:10 Active EKG 12 Lead [EKG Documentation Completion] [RC] STAT Care 08/06/19 09:52 Active IS (RT) [RT Incentive Spirometry] [RC] Q1HWA Care 08/06/19 13:42 Ordered Intake and Output [RC] QSHIFT Care 08/06/19 13:39 Ordered May Shower [RC] ASDIRECTED Care 08/06/19 13:38 Ordered Oxygen Therapy [RC] PRN Care 08/06/19 13:38 Ordered RT Aerosol Therapy [RC] ASDIRECTED Care 08/06/19 09:36 Active RT Aerosol Therapy [RC] ASDIRECTED Care 08/06/19 09:59 Active RT Aerosol Therapy [RC] ASDIRECTED Care 08/06/19 13:40 Ordered Telemetry Monitoring [Cardiac Monitoring] [RC] . Care 08/06/19 13:41 Ordered DIRECTED Up ad [place]ma [RC] ASDIRECTED Care 08/06/19 13:38 Ordered VTE/DVT Education [RC] PER UNIT ROUTINE Care 08/06/19 13:38 Ordered Vital Signs [RC] Q4H Care 08/06/19 13:38 Ordered Regular Diet [DIET] Diet 08/06/19 Lunch Ordered BASIC METABOLIC PANEL,BMP [CHEM] AM Lab 08/07/19 05:11 Ordered CBC WITH AUTO DIFF [HEME] AM Lab 08/07/19 05:11 Ordered Acetaminophen [Tylenol] Med 08/06/19 13:38 Ordered 650 mg PO Q4H PRN Albuterol/Ipratropium [DuoNeb 3.0-0.5 MG/3 ML] Med 08/06/19 14:00 Ordered 3 ml NEB Q4HRRT Benzonatate [Tessalon Perles] Med 08/06/19 13:42 Ordered 200 mg PO TID PRN Budesonide/Formoterol Fumarate Med 08/06/19 21:00 Ordered 1 puff IH BID Escitalopram Med 08/07/19 09:00 Ordered 20 mg PO DAILY Oxybutynin Med 08/06/19 21:00 Ordered 5 mg PO BEDTIME Prazosin HCl [Prazosin] Med 08/07/19 09:00 Ordered 2 mg PO DAILY Sodium Chloride 0.9% [Saline Flush] Med 08/06/19 13:38 Ordered 10 ml FLUSH ASDIRECTED PRN Sodium Chloride 0.9% [Saline Flush] Med 08/06/19 13:38 Ordered 2.5 ml FLUSH ASDIRECTED PRN Umeclidinium [place] [Incruse Ellipta*] Med 08/07/19 09:00 Ordered 1 puff INH DAILY Varenicline Tartrate [Chantix] Med 08/06/19 21:00 Ordered 1 mg PO BID Venlafaxine [Effexor XR] Med 08/07/19 09:00 Ordered 75 mg PO DAILY Zinc Gluconate Med 08/07/19 09:00 Ordered 50 mg PO DAILY cloNIDine [Catapres] Med 08/06/19 21:00 Ordered 0.1 mg PO BID lisinopriL [Prinivil] Med 08/07/19 09:00 Ordered 10 mg PO DAILY methylPREDNISolone Sod Succ [Solu-MEDROL] Med 08/06/19 16:00 Ordered 40 mg IVPUSH Q8H Saline Lock Insert [OM.PC] Routine Oth 08/06/19 13:38 Ordered Resuscitation Status Routine Resus Stat 08/06/19 13:38 Ordered Medication Orders Acetaminophen (Tylenol) 650 mg PO Q4H PRN PRN Reason: Pain (Mild 1-3)/fever Albuterol/Ipratropium (Duoneb 3.0-0.5 Mg/3 Ml) 3 ml NEB Q4HRRT YASIR Benzonatate (Tessalon Perles) 200 mg PO TID PRN PRN Reason: Cough Clonidine HCl (Catapres) 0.1 mg PO BID YASIR Lisinopril (Prinivil) 10 mg PO DAILY YASIR Methylprednisolone Sodium Succinate (Solu-Medrol) 40 mg IVPUSH Q8H YASIR Non-Formulary Medication (Budesonide/Formoterol Fumarate) 1 puff IH BID YASIR Non-Formulary Medication (Escitalopram) 20 mg PO DAILY YASIR Non-Formulary Medication (Prazosin Hcl [Prazosin]) 2 mg PO DAILY YASIR Non-Formulary Medication (Umeclidinium [place] [Incruse Ellipta*]) 1 puff INH DAILY YASIR Non-Formulary Medication (Varenicline Tartrate [Chantix]) 1 mg PO BID YASIR Non-Formulary Medication (Zinc Gluconate) 50 mg PO DAILY YASIR Oxybutynin Chloride (Oxybutynin) 5 mg PO BEDTIME YASIR Sodium Chloride (Saline Flush) 10 ml FLUSH ASDIRECTED PRN PRN Reason: Keep Vein Open Sodium Chloride (Saline Flush) 2.5 ml FLUSH ASDIRECTED PRN PRN Reason: Keep Vein Open Venlafaxine HCl (Effexor Xr) 75 mg PO DAILY [facility] Assessment/Plan Comment:: This 64 year old female admitted with COPD exacerbation 1. COPD exacerbation - Solumedrol 40 mg Q8hr IV - Duonebs Q4hrs as well as PRN - Oxygen PRN, keep sats 88% or higher. Does wear 2 L NC at home continuously - Azithromycin 2. Dehydration - Give gentle IVF recheck labwork in am 3. HTN - Stable, will continue home medications - Reports dizziness after starting to take Prazosin, which was given at some point outpatient. Will hold this monitor BP. 4. Anxiety -Stable, continue home medications. Diet: Regular VTE prophylaxis: SCDs CODE Status: Full Code Disposition: 1-2 days pending improvement - Mortality Measure Prognosis:: Good
[2019-08-06] MEDS: Albuterol/Ipratropium 3.0-0.5 MG/3 ML Neb Soln NEB SCH ×3 (14:30→21:36)
[2019-08-06] MEDS ORDERED: Pantoprazole 40 MG in Sodium Chloride 0.9% 10 ML IV ONE (15:05)
[2019-08-06] MEDS: Sodium Chloride 0.9% 1,000 ML IV SCH (15:24)
[2019-08-06] MEDS: methylPREDNISolone Sodium Succinate 40 MG/1 ML SDV IVPUSH SCH ×2 (15:25→23:46)
[2019-08-06] MEDS: Azithromycin 250 MG Tab PO SCH (16:39)
[2019-08-06] MEDS: Varenicline Tartrate [Chantix] 1 MG PO SCH (21:21)
[2019-08-06] MEDS: Oxybutynin 5 MG Tab PO SCH (21:24)
[2019-08-06] MEDS: FORMOTEROL FUMARATE INH SCH (21:36)
[2019-08-06] MEDS: BUDESONIDE INH SCH (21:36)
[2019-08-06] MEDS: cloNIDine 0.1 MG Tab PO SCH (22:36)
[2019-08-07] MEDS: Albuterol/Ipratropium 3.0-0.5 MG/3 ML Neb Soln NEB SCH ×6 (01:32→21:06)
[2019-08-07] MEDS: Sodium Chloride 0.9% 1,000 ML IV SCH (03:45)
[2019-08-07 05:44] LABS: CARBON DIOXIDE,CO2 22.4 mmol/L (21.0-32.0); POTASSIUM,K 5.3 mmol/L (3.5-5.1)
[2019-08-07] MEDS: Pantoprazole 40 MG Tab.CR PO SCH (06:30)
[2019-08-07] MEDS ORDERED: Aspirin 325 MG Tab PO ONE ×2 (07:25→07:45)
[2019-08-07] MEDS ORDERED: Calcium Gluconate 10% 1 GM/10 ML SDV IVPUSH ONE (07:40)
[2019-08-07] MEDS ORDERED: Aspirin 325 MG Tab ONE (07:41)
[2019-08-07] MEDS ORDERED: Nitroglycerin 0.4 MG Tab.SL ONE (07:42)
[2019-08-07] MEDS: Nitroglycerin 0.4 MG Tab.SL SL PRN ×2 (07:46→07:54)
[2019-08-07] MEDS ORDERED: Calcium Gluconate 10% 1 GM/10 ML SDV ONE (07:51)
[2019-08-07] MEDS: Escitalopram 10 MG Tab PO SCH (08:05)
[2019-08-07] MEDS: Venlafaxine 75 MG Cap.ER PO SCH (08:07)
[2019-08-07] MEDS: cloNIDine 0.1 MG Tab PO SCH ×2 (08:07→21:27)
[2019-08-07] MEDS: methylPREDNISolone Sodium Succinate 40 MG/1 ML SDV IVPUSH SCH (08:08)
[2019-08-07] MEDS: Varenicline Tartrate [Chantix] 1 MG PO SCH ×2 (08:15→21:27)
[2019-08-07] MEDS: UMECLIDINIUM BROMIDE INH SCH (08:16)
[2019-08-07] MEDS: FORMOTEROL FUMARATE INH SCH ×2 (08:16→21:06)
[2019-08-07] MEDS: BUDESONIDE INH SCH ×2 (08:16→21:06)
[2019-08-07] MEDS: Zinc Gluconate 50 MG PO SCH (08:17)
--- NOTE | 2019-08-07 08:19 | CR ---
Chest: Portable view of the chest was obtained. Comparison: Prior chest x-ray of 08/06/19. Scar is noted over the right hilum. This is stable from prior chest x-ray. Emphysematous change is present. No acute parenchymal change is seen within either lung. Heart size and mediastinum are normal. Scoliosis is noted. Impression: 1. Findings as described above which are stable from prior chest x-ray. 2. Nothing acute is otherwise seen. Diagnostic code #2 This report was dictated in [place] Standard Time
[2019-08-07] MEDS ORDERED: Alum Hydrox/Mag Hydrox/Simeth 15 ML, Lidocaine 2% 5 ML PO ONE ×2 (08:30)
[2019-08-07] MEDS ORDERED: Prazosin 1 MG Cap PO SCH (09:00)
[2019-08-07] MEDS ORDERED: Lisinopril 10 MG Tab PO SCH (09:00)
--- NOTE | 2019-08-07 10:35 | PCM.PN ---
- General Info Date of Service: 08/07/19 Admission Dx/Problem (Free Text): Admission Diagnosis/Problem Admission Diagnosis/Problem COPD, Severe chronic obstructive pulmonary disease Subjective Update: Had episode of chest pain, heartburn this morning, after starting to eat breakfast. Breathing improving. No other complaints. Functional Status: Reports: Pain Controlled, Tolerating Diet, Ambulating, Urinating - Review of Systems General: Reports: No Symptoms. Denies: Fever, Fatigue HEENT: Reports: No Symptoms. Denies: Headaches, Sore Throat Pulmonary: Reports: Shortness of Breath (much improved) Gastrointestinal: Reports: No Symptoms. Denies: Abdominal Pain, Nausea, Vomiting Genitourinary: Reports: No Symptoms. Denies: Dysuria, Frequency, Burning Musculoskeletal: Reports: No Symptoms Skin: Reports: No Symptoms Neurological: Reports: No Symptoms Psychiatric: Reports: No Symptoms - Patient Data Vitals - Most Recent: Last Vital Signs Temp 96.5 F L 08/07/19 07:10 Pulse 74 08/07/19 07:10 Resp 19 08/07/19 07:10 BP 137/67 08/07/19 08:30 Pulse Ox 96 08/07/19 07:10 Weight - Most Recent: 60.8 kg I&O - Last 24 Hours: Intake & Output 08/06/19 08/07/19 08/07/19 22:59 06:59 14:59 Intake Total 60 1418 Output Total 200 600 Balance -140 818 Lab Results Last 24 Hours: Laboratory Results - last 24 hr 08/06/19 08/06/19 08/07/19 Range/Units 09:37 21:43 02:00 WBC (4.0-11.0) K/uL RBC (4.30-5.90) M/uL Hgb (12.0-16.0) g/dL Hct (36.0-46.0) % MCV (80.0-98.0) fL MCH (27.0-32.0) pg MCHC (31.0-37.0) g/dL RDW Std Deviation (28.0-62.0) fl RDW Coeff of Jamil (11.0-15.0) % Plt Count (150-400) K/uL MPV (7.40-12.00) fL Neut % (Auto) (48.0-80.0) % Lymph % (Auto) (16.0-40.0) % [place] % (Auto) (0.0-15.0) % Eos % (Auto) (0.0-7.0) % Baso % (Auto) (0.0-1.5) % Neut # (Auto) (1.4-5.7) K/uL Lymph # (Auto) (0.6-2.4) K/uL [place] # (Auto) (0.0-0.8) K/uL Eos # (Auto) (0.0-0.7) K/uL Baso # (Auto) (0.0-0.1) K/uL Nucleated RBC % /100WBC Nucleated RBCs # K/uL Sodium (136-145) mmol/L Potassium (3.5-5.1) mmol/L Chloride (98-107) mmol/L Carbon Dioxide (21.0-32.0) mmol/L BUN (7.0-18.0) mg/dL Creatinine (0.6-1.0) mg/dL Est Cr Clr Drug Dosing mL/min Estimated GFR (MDRD) ml/min Glucose (74-106) mg/dL Calcium (8.5-10.1) mg/dL Troponin I < 0.050 (0.000-0.056) ng/mL B-Natriuretic Peptide 36 (<100) PG/ML Lipase (73-393) U/L Urine Color YELLOW Urine Appearance CLEAR Urine pH 6.5 (5.0-8.0) Ur Specific [place] 1.015 (1.001-1.035) Urine Protein NEGATIVE (NEGATIVE) mg/dL Urine Glucose (UA) 250 H (NEGATIVE) mg/dL Urine Ketones NEGATIVE (NEGATIVE) mg/dL Urine Occult Blood NEGATIVE (NEGATIVE) Urine Nitrite NEGATIVE (NEGATIVE) Urine Bilirubin NEGATIVE (NEGATIVE) Urine Urobilinogen 0.2 (<2.0) EU/dL Ur Leukocyte Esterase NEGATIVE (NEGATIVE) 08/07/19 08/07/19 08/07/19 Range/Units 05:14 05:14 05:14 WBC 10.87 (4.0-11.0) K/uL RBC 4.06 L (4.30-5.90) M/uL Hgb 11.2 L (12.0-16.0) g/dL Hct 34.6 L (36.0-46.0) % MCV 85.2 (80.0-98.0) fL MCH 27.6 (27.0-32.0) pg MCHC 32.4 (31.0-37.0) g/dL RDW Std Deviation 44.5 (28.0-62.0) fl RDW Coeff of Jamil 14 (11.0-15.0) % Plt Count 207 (150-400) K/uL MPV 9.20 (7.40-12.00) fL Neut % (Auto) 88.8 H (48.0-80.0) % Lymph % (Auto) 8.5 L (16.0-40.0) % [place] % (Auto) 2.7 (0.0-15.0) % Eos % (Auto) 0.0 (0.0-7.0) % Baso % (Auto) 0.0 (0.0-1.5) % Neut # (Auto) 9.7 H (1.4-5.7) K/uL Lymph # (Auto) 0.9 (0.6-2.4) K/uL [place] # (Auto) 0.3 (0.0-0.8) K/uL Eos # (Auto) 0.0 (0.0-0.7) K/uL Baso # (Auto) 0.0 (0.0-0.1) K/uL Nucleated RBC % 0.0 /100WBC Nucleated RBCs # 0 K/uL Sodium 136 (136-145) mmol/L Potassium 5.3 H (3.5-5.1) mmol/L Chloride 103 (98-107) mmol/L Carbon Dioxide 22.4 (21.0-32.0) mmol/L BUN 43 H (7.0-18.0) mg/dL Creatinine 1.4 H (0.6-1.0) mg/dL Est Cr Clr Drug Dosing 39.48 mL/min Estimated GFR (MDRD) 38.0 ml/min Glucose 167 H (74-106) mg/dL Calcium 9.0 (8.5-10.1) mg/dL Troponin I < 0.050 (0.000-0.056) ng/mL B-Natriuretic Peptide (<100) PG/ML Lipase (73-393) U/L Urine Color Urine Appearance Urine pH (5.0-8.0) Ur Specific [place] (1.001-1.035) Urine Protein (NEGATIVE) mg/dL Urine Glucose (UA) (NEGATIVE) mg/dL Urine Ketones (NEGATIVE) mg/dL Urine Occult Blood (NEGATIVE) Urine Nitrite (NEGATIVE) Urine Bilirubin (NEGATIVE) Urine Urobilinogen (<2.0) EU/dL Ur Leukocyte Esterase (NEGATIVE) 08/07/19 Range/Units 05:14 WBC (4.0-11.0) K/uL RBC (4.30-5.90) M/uL Hgb (12.0-16.0) g/dL Hct (36.0-46.0) % MCV (80.0-98.0) fL MCH (27.0-32.0) pg MCHC (31.0-37.0) g/dL RDW Std Deviation (28.0-62.0) fl RDW Coeff of Jamil (11.0-15.0) % Plt Count (150-400) K/uL MPV (7.40-12.00) fL Neut % (Auto) (48.0-80.0) % Lymph % (Auto) (16.0-40.0) % [place] % (Auto) (0.0-15.0) % Eos % (Auto) (0.0-7.0) % Baso % (Auto) (0.0-1.5) % Neut # (Auto) (1.4-5.7) K/uL Lymph # (Auto) (0.6-2.4) K/uL [place] # (Auto) (0.0-0.8) K/uL Eos # (Auto) (0.0-0.7) K/uL Baso # (Auto) (0.0-0.1) K/uL Nucleated RBC % /100WBC Nucleated RBCs # K/uL Sodium (136-145) mmol/L Potassium (3.5-5.1) mmol/L Chloride (98-107) mmol/L Carbon Dioxide (21.0-32.0) mmol/L BUN (7.0-18.0) mg/dL Creatinine (0.6-1.0) mg/dL Est Cr Clr Drug Dosing mL/min Estimated GFR (MDRD) ml/min Glucose (74-106) mg/dL Calcium (8.5-10.1) mg/dL Troponin I (0.000-0.056) ng/mL B-Natriuretic Peptide (<100) PG/ML Lipase 118 (73-393) U/L Urine Color Urine Appearance Urine pH (5.0-8.0) Ur Specific [place] (1.001-1.035) Urine Protein (NEGATIVE) mg/dL Urine Glucose (UA) (NEGATIVE) mg/dL Urine Ketones (NEGATIVE) mg/dL Urine Occult Blood (NEGATIVE) Urine Nitrite (NEGATIVE) Urine Bilirubin (NEGATIVE) Urine Urobilinogen (<2.0) EU/dL Ur Leukocyte Esterase (NEGATIVE) Med Orders - Current: Current Medications Acetaminophen (Tylenol) 650 mg PO Q4H PRN PRN Reason: Pain (Mild 1-3)/fever Last Admin: 08/06/19 23:55 Dose: 650 mg Albuterol/Ipratropium (Duoneb 3.0-0.5 Mg/3 Ml) 3 ml NEB Q4HRRT [facility] Last Admin: 08/07/19 09:29 Dose: 3 ml Azithromycin (Zithromax) 500 mg PO Q24H [facility] Last Admin: 08/06/19 16:39 Dose: 500 mg Benzonatate (Tessalon Perles) 200 mg PO TID PRN PRN Reason: Cough Last Admin: 08/06/19 17:54 Dose: 200 mg Clonidine HCl (Catapres) 0.1 mg PO BID [facility] Last Admin: 08/07/19 08:07 Dose: 0.1 mg Escitalopram Oxalate (Lexapro) 20 mg PO DAILY [facility] Last Admin: 08/07/19 08:05 Dose: 20 mg Sodium Chloride (Normal Saline) 1,000 mls @ 75 mls/hr IV Q13H [facility] Last Admin: 08/07/19 03:45 Dose: 75 mls/hr Methylprednisolone Sodium Succinate (Solu-Medrol) 40 mg IVPUSH Q8H [facility] Last Admin: 08/07/19 08:08 Dose: 40 mg Nitroglycerin (Nitrostat) 0.4 mg SL Q5M PRN PRN Reason: Chest Pain Last Admin: 08/07/19 07:54 Dose: 0.4 mg Oxybutynin Chloride (Oxybutynin) 5 mg PO BEDTIME [facility] Last Admin: 08/06/19 21:24 Dose: 5 mg Pantoprazole Sodium (Protonix) 40 mg PO ACBREAKFAST [facility] Last Admin: 08/07/19 06:30 Dose: 40 mg Budesonide/Formoterol Fumarate 1 Puff 1 each INH BID [facility] Last Admin: 08/07/19 08:16 Dose: 1 each Umeclidinium [place] [Incruse Ellipta*] 1 Puff 1 each INH DAILY [facility] Last Admin: 08/07/19 08:16 Dose: 1 each Varenicline Tartrate ([Chantix] 1 Mg) 1 each PO BID [facility] Last Admin: 08/07/19 08:15 Dose: 1 each Zinc Gluconate 50 Mg 1 each PO DAILY [facility] Last Admin: 08/07/19 08:17 Dose: Not Given Sodium Chloride (Saline Flush) 10 ml FLUSH ASDIRECTED PRN PRN Reason: Keep Vein Open Sodium Chloride (Saline Flush) 2.5 ml FLUSH ASDIRECTED PRN PRN Reason: Keep Vein Open Sucralfate (Carafate) 1 gm PO TIDAC [facility] Venlafaxine HCl (Effexor Xr) 75 mg PO DAILY [facility] Last Admin: 08/07/19 08:07 Dose: 75 mg Discontinued Medications Albuterol/Ipratropium (Duoneb 3.0-0.5 Mg/3 Ml) 3 ml NEB ONETIME ONE Stop: 08/06/19 09:36 Last Admin: 08/06/19 10:00 Dose: 3 ml Albuterol/Ipratropium (Duoneb 3.0-0.5 Mg/3 Ml) Confirm Administered Dose 6 ml .ROUTE .STK-MED ONE Stop: 08/06/19 09:55 Last Admin: 08/06/19 10:00 Dose: 6 ml Albuterol/Ipratropium (Duoneb 3.0-0.5 Mg/3 Ml) 6 ml NEB ONETIME ONE Stop: 08/06/19 10:00 Last Admin: 08/06/19 10:01 Dose: Not Given Aspirin (Aspirin) 325 mg PO ONETIME ONE Stop: 08/07/19 07:26 Last Admin: 08/07/19 07:45 Dose: 325 mg Aspirin (Aspirin) 325 mg PO ONETIME ONE Stop: 08/07/19 07:46 Last Admin: 08/07/19 07:40 Dose: Not Given Aspirin (Aspirin) Confirm Administered Dose 325 mg .ROUTE .STK-MED ONE Stop: 08/07/19 07:42 Last Admin: 08/07/19 09:39 Dose: Not Given Calcium Gluconate (Calcium Gluconate) 1 gm IVPUSH ONETIME ONE Stop: 08/07/19 07:41 Last Admin: 08/07/19 07:52 Dose: 1 gm Calcium Gluconate (Calcium Gluconate) Confirm Administered Dose 1 gm .ROUTE .STK -MED ONE Stop: 08/07/19 07:52 Last Admin: 08/07/19 09:40 Dose: Not Given Al Hydroxide/Mg Hydroxide 15 ml/ Metoclopramide HCl 5 mg/Lidocaine HCl 5 ml 0 ml PO STAT ONE Stop: 08/06/19 11:12 Last Admin: 08/06/19 11:33 Dose: 1 each Al Hydroxide/Mg Hydroxide 15 (ml/ Lidocaine HCl 5 ml) 0 ml PO ONETIME ONE Stop: 08/07/19 08:31 Last Admin: 08/07/19 08:55 Dose: 20 each Magnesium Sulfate 2 gm/ Premix 50 mls @ 50 mls/hr IV ONETIME ONE Stop: 08/06/19 10:37 Last Admin: 08/06/19 10:24 Dose: Not Given Magnesium Sulfate 1 gm/ Sodium (Chloride) 52 mls @ 52 mls/hr IV ONETIME ONE Stop: 08/06/19 10:59 Last Admin: 08/06/19 10:08 Dose: 52 mls/hr Pantoprazole Sodium 40 mg/ (Sodium Chloride) 10 mls @ 300 mls/hr IV NOW ONE Stop: 08/06/19 15:06 Last Admin: 08/06/19 15:25 Dose: 300 mls/hr Lisinopril (Prinivil) 10 mg PO DAILY [facility] Methylprednisolone Sodium Succinate (Solu-Medrol) 125 mg IVPUSH ONETIME ONE Stop: 08/06/19 09:38 Last Admin: 08/06/19 10:08 Dose: 125 mg Nitroglycerin (Nitrostat) Confirm Administered Dose 0.4 mg .ROUTE .STK-MED ONE Stop: 08/07/19 07:43 Last Admin: 08/07/19 09:40 Dose: Not Given Prazosin HCl (Minpress) 2 mg PO DAILY [facility] - Exam General: Alert, Oriented, Cooperative, No Acute Distress Lungs: Wheezing. No: Normal Respiratory Effort (dyspnea noted with speech) Cardiovascular: Regular Rate, Regular Rhythm GI/Abdominal Exam: Normal Bowel Sounds, Soft, Non-Tender Extremities: Normal Inspection, Normal Range of Motion, Non-Tender, No Pedal Edema Psy/Mental Status: Alert, Normal Affect, Normal Mood Sepsis Event Note - Evaluation Sepsis Screening Result: No Definite Risk - Focused Exam Vital Signs: Vital Signs Temp Pulse Resp BP BP Pulse Ox 08/07/19 08:30 137/67 08/07/19 08:07 130/75 08/07/19 08:01 130/75 08/07/19 08:00 130/75 08/07/19 07:54 143/72 H 08/07/19 07:46 160/90 H 08/07/19 07:10 96.5 F L 74 19 160/90 H 96 08/07/19 03:48 97.6 F 76 20 143/81 H 98 08/07/19 00:02 97.4 F 78 22 H 128/78 98 08/06/19 22:36 136/73 Date Exam was Performed: 08/07/19 Time Exam was Performed: 11:13 - Problem List & Annotations (1) COPD (chronic obstructive pulmonary disease) SNOMED Code(s): 23462587 Code(s): J44.9 - CHRONIC OBSTRUCTIVE PULMONARY DISEASE, UNSPECIFIED Status : Chronic Current Visit: No Qualifiers: COPD type: COPD with acute exacerbation Qualified Code(s): J44.1 - Chronic obstructive pulmonary disease with (acute) exacerbation (2) ETOH abuse SNOMED Code(s): 83210064 Code(s): F10.10 - ALCOHOL ABUSE, UNCOMPLICATED Status: Chronic Current Visit: No (3) HTN (hypertension) SNOMED Code(s): 19386297 Code(s): I10 - ESSENTIAL (PRIMARY) HYPERTENSION Status: Chronic Current Visit: No Qualifiers: Hypertension type: essential hypertension Qualified Code(s): I10 - Essential (primary) hypertension (4) History of tobacco abuse SNOMED Code(s): 495202299, 386172318 Code(s): Z87.891 - PERSONAL HISTORY OF NICOTINE DEPENDENCE Status: Chronic Current Visit: No (5) Hx of hepatitis C SNOMED Code(s): 14813495721669, 70943717913291 Code(s): Z86.19 - PERSONAL HISTORY OF OTHER INFECTIOUS AND PARASITIC DISEASES Status: Chronic Current Visit: No (6) Oxygen dependent SNOMED Code(s): 777468994384 Code(s): Z99.81 - DEPENDENCE ON SUPPLEMENTAL OXYGEN Status: Chronic Current Visit: No (7) Chest pain SNOMED Code(s): 02243131 Code(s): R07.9 - CHEST PAIN, UNSPECIFIED Status: Acute Current Visit: Yes - Problem List Review Problem List Initiated/Reviewed/Updated: Yes - My Orders Last 24 Hours: My Active Orders 08/06/19 13:38 May Shower [RC] ASDIRECTED Oxygen Therapy [RC] PRN Up ad [place] [RC] ASDIRECTED VTE/DVT Education [RC] PER UNIT ROUTINE Vital Signs [RC] Q4H Acetaminophen [Tylenol] 650 mg PO Q4H PRN Sodium Chloride 0.9% [Saline Flush] 10 ml FLUSH ASDIRECTED PRN Sodium Chloride 0.9% [Saline Flush] 2.5 ml FLUSH ASDIRECTED PRN Saline Lock Insert [OM.PC] Routine Resuscitation Status Routine 08/06/19 13:39 Intake and Output [RC] Q12H 08/06/19 13:40 RT Aerosol Therapy [RC] ASDIRECTED 08/06/19 13:41 Telemetry Monitoring [Cardiac Monitoring] [RC] Q8H 08/06/19 13:42 IS (RT) [RT Incentive Spirometry] [RC] Q1HWA Benzonatate [Tessalon Perles] 200 mg PO TID PRN 08/06/19 14:00 Albuterol/Ipratropium [DuoNeb 3.0-0.5 MG/3 ML] 3 ml NEB Q4HRRT 08/06/19 15:15 Sodium Chloride 0.9% [Normal Saline] 1,000 ml IV Q13H 08/06/19 16:00 Azithromycin [Zithromax] 500 mg PO Q24H methylPREDNISolone Sod Succ [Solu-MEDROL] 40 mg IVPUSH Q8H 08/06/19 21:00 Oxybutynin 5 mg PO BEDTIME Patient's Own Medication [Ptom] 1 each INH BID Patient's Own Medication [Ptom] 1 each PO BID cloNIDine [Catapres] 0.1 mg PO BID 08/06/19 Lunch Regular Diet [DIET] 08/07/19 07:30 Pantoprazole [ProTONIX] 40 mg PO ACBREAKFAST 08/07/19 09:00 Escitalopram [Lexapro] 20 mg PO DAILY Patient's Own Medication [Ptom] 1 each INH DAILY Patient's Own Medication [Ptom] 1 each PO DAILY Venlafaxine [Effexor XR] 75 mg PO DAILY 08/07/19 11:30 Sucralfate [Carafate] 1 gm PO TIDAC 08/07/19 13:00 TROPONIN I [CHEM] Q6H 08/07/19 19:00 TROPONIN I [CHEM] Q6H - Plan Plan:: This 64 year old female admitted with COPD exacerbation 1. COPD exacerbation - Solumedrol 40 daily - Duonebs Q4hrs as well as PRN - Oxygen PRN, keep sats 88% or higher. Does wear 2 L NC at home continuously - Azithromycin 2. Chest pain: - Likely gastritis, but will trend troponins today and monitor on telemetry. 3. Dehydration - Resolved. 4. HTN - Stable, will continue home medications - Reports dizziness after starting to take Prazosin, which was given at some point outpatient. Will hold this monitor BP. 5. Anxiety -Stable, continue home medications. Diet: Regular VTE prophylaxis: SCDs CODE Status: Full Code Disposition: 1-2 days pending improvement
[2019-08-07] MEDS: Sucralfate Suspension 1 GM/10 ML Cup PO SCH ×2 (11:40→16:00)
[2019-08-07] MEDS ORDERED: Docusate Sodium 100 MG Cap PO PRN (14:44)
[2019-08-07] MEDS ORDERED: Magnesium Hydroxide 400 MG/5 ML Susp 30 ML Cup PO PRN (14:44)
[2019-08-07] MEDS: Azithromycin 250 MG Tab PO SCH (16:00)
[2019-08-07] MEDS: Oxybutynin 5 MG Tab PO SCH (21:27)
[2019-08-08] MEDS: Albuterol/Ipratropium 3.0-0.5 MG/3 ML Neb Soln NEB SCH ×3 (01:51→09:50)
[2019-08-08 06:04] LABS: CARBON DIOXIDE,CO2 22.1 mmol/L (21.0-32.0); POTASSIUM,K 4.1 mmol/L (3.5-5.1)
[2019-08-08] MEDS: Sucralfate Suspension 1 GM/10 ML Cup PO SCH ×2 (06:46→12:00)
[2019-08-08] MEDS: Pantoprazole 40 MG Tab.CR PO SCH (06:46)
[2019-08-08] MEDS: UMECLIDINIUM BROMIDE INH SCH (08:32)
[2019-08-08] MEDS: BUDESONIDE INH SCH (08:32)
[2019-08-08] MEDS: FORMOTEROL FUMARATE INH SCH (08:32)
--- NOTE | 2019-08-08 08:55 | PCM.DCSUM1 ---
Discharge Summary - Hospital Course Brief History: This 64 year old female with pmh of oxygen dependent COPD, HTN, Hep C, anxiety and hx tobacco use presented to the ED with complaints of dyspnea and cough along with nausea, vomiting and heartburn that started on Sunday. She was previously admitted for COPD exacerbation and discharged August 01 with Prednisone and Levaquin. She reports she picked up her meds and the pharmacy also gave her a bottle of Prazosin. She started taking these all and felt very light headed and dizzy, so on Sunday she stopped all the new medicines and haven't taken any since. SHe has felt nauseated and not eating or drinking much. She denies fevers or chills. Reports generalized malaise, non productive cough, dyspnea with exertion and significant wheezing. She uses Symbicort and Incruse at home as well as rescue inhaler. She denies chest pain. She denies tobacco use now, quit approximately 5 years ago, rare social alcohol use, used to use heavily and no recreational drug use. In the ED leukocytosis noted at 15,000, mild BUN cr elevation, 54/2.0. CXR reviews emphysematous changes, no acute process noted. She was treated with Solumedrol and Duonebs in the ED. She reports feeling improved since then. She will be admitted observation for COPD exacerbation and dehydration. Diagnosis: Stroke: No - Discharge Data Discharge Date: 08/08/19 Discharge Disposition: Home, Self-Care 01 Condition: Good - Referral to Home Health Primary Care Physician: PCP Unobtainable - Discharge Diagnosis/Problem(s) (1) COPD (chronic obstructive pulmonary disease) SNOMED Code(s): 65403807 ICD Code: J44.9 - CHRONIC OBSTRUCTIVE PULMONARY DISEASE, UNSPECIFIED Status : Chronic Current Visit: No Qualifiers: COPD type: COPD with acute exacerbation Qualified Code(s): J44.1 - Chronic obstructive pulmonary disease with (acute) exacerbation (2) ETOH abuse SNOMED Code(s): 01901634 ICD Code: F10.10 - ALCOHOL ABUSE, UNCOMPLICATED Status: Chronic Current Visit: No (3) HTN (hypertension) SNOMED Code(s): 06945111 ICD Code: I10 - ESSENTIAL (PRIMARY) HYPERTENSION Status: Chronic Current Visit: No Qualifiers: Hypertension type: essential hypertension Qualified Code(s): I10 - Essential (primary) hypertension (4) History of tobacco abuse SNOMED Code(s): 742273657, 615362719 ICD Code: Z87.891 - PERSONAL HISTORY OF NICOTINE DEPENDENCE Status: Chronic Current Visit: No (5) Hx of hepatitis C SNOMED Code(s): 19786237147026, 33373874550180 ICD Code: Z86.19 - PERSONAL HISTORY OF OTHER INFECTIOUS AND PARASITIC DISEASES Status: Chronic Current Visit: No (6) Oxygen dependent SNOMED Code(s): 990597661130 ICD Code: Z99.81 - DEPENDENCE ON SUPPLEMENTAL OXYGEN Status: Chronic Current Visit: No (7) Chest pain SNOMED Code(s): 08189830 ICD Code: R07.9 - CHEST PAIN, UNSPECIFIED Status: Acute Current Visit: Yes - Patient Instructions Diet: Heart Healthy Diet Activity: As Tolerated, No Strenuous Activities Showering/Bathing: May Shower Notify Provider of: Fever, Increased Pain, Swelling and Redness, Drainage, Nausea and/or Vomiting - Discharge Plan *PRESCRIPTION DRUG MONITORING PROGRAM REVIEWED*: Yes *COPY OF PRESCRIPTION DRUG MONITORING REPORT IN PATIENT KARIE: Yes Prescriptions/Med Rec: Azithromycin [Zithromax] 500 mg PO Q24H #6 tablet Pantoprazole [ProTONIX] 40 mg PO ACBREAKFAST #30 tab.cr Sucralfate [Carafate] 1 gm PO QIDACANDBED #120 tablet Home Medications: Home Meds Albuterol [Proventil HFA] 1 puff INH QID PRN 09/22/18 [History] Albuterol/Ipratropium [DuoNeb 3.0-0.5 MG/3 ML] 3 ml NEB Q8HR PRN 09/22/18 [ History] Budesonide/Formoterol Fumarate [Symbicort 80-4.5 MCG] 1 puff IH BID 09/22/18 [ History] Venlafaxine HCl [Venlafaxine ER] 75 mg PO DAILY 09/22/18 [History] cloNIDine [Catapres] 0.1 mg PO BID 09/22/18 [History] Umeclidinium [place] [Incruse Ellipta*] 1 puff DAILY 05/19/19 [History] Varenicline Tartrate [Chantix] 1 mg PO BID 05/19/19 [History] predniSONE 40 mg PO WITHBREAKFAST #8 tablet 08/01/19 [Rx] Albuterol Sulfate [Albuterol Sulfate Hfa] 2 puff INH ASDIRECTED PRN 08/06/19 [ History] Albuterol [Ventolin HFA] 2 puff INH ASDIRECTED PRN 08/06/19 [History] Escitalopram [Lexapro] 20 mg PO DAILY 08/06/19 [History] Cronin Seal/Echinacea Purpurea [Echinacea & Goldenseal] 1 cap PO DAILY 08/06/19 [History] Lisinopril [Zestril] 10 mg PO DAILY 08/06/19 [History] Oxybutynin 5 mg PO BEDTIME 08/06/19 [History] Zinc Gluconate [Zinc] 50 mg PO DAILY 08/06/19 [History] Azithromycin [Zithromax] 500 mg PO Q24H #6 tablet 08/08/19 [Rx] Pantoprazole [ProTONIX] 40 mg PO ACBREAKFAST #30 tab.cr 08/08/19 [Rx] Sucralfate [Carafate] 1 gm PO QIDACANDBED #120 tablet 08/08/19 [Rx] Oxygen Therapy Mode: Nasal Cannula Oxygen Flow Rate (L/min): 2 Patient Handouts: Chronic Obstructive Pulmonary Disease Exacerbation, Easy-to- Read, Azithromycin tablets, Sucralfate tablets, Pantoprazole tablets Referrals: [facility] [Outside] Mandie Cantrell PA [Physician Credit Card Control Clerk] - 08/19/19 10:30 am - Discharge Summary/Plan Comment DC Time >30 min.: No Discharge Summary/Plan Comment: Admitting Diagnoses: Chest pain- atypical COPD exacerbation ALICIA Discharge Diagnoses: Gastritis COPD exacerbation ALICIA resolved Shanta was admitted secondary to some atypical chest pain. She was monitored for this, troponins negative. EKG remains SR with no ST elevated. Pain likely secondary to gastritis, she was recently prescribed oral prednisone for COPD exacerbation. Pain relieved with GI cocktail. She was started on Protonic and Carafate. Solumedrol and Azithromycin started. She was also given IVFs for ALICIA, which improved and MELVI improved. She is doing much better today, no further pain. Will discharged home today with Protonix daily and Carafate QID for 1 month. She is to continue previous prednisone taper, only 2 days remaining. She is to continue all home inhalers. She is to return to the ED or clinic if concerns should arise. Follow up as outpatient in 1 week. - General Info Date of Service: 08/08/19 Admission Dx/Problem (Free Text: Admission Diagnosis/Problem Admission Diagnosis/Problem COPD, Severe chronic obstructive pulmonary disease Subjective Update: Feeling improved today, eating well no nausea. No chest pain. Breathing is at baseline. Functional Status: Reports: Pain Controlled, Tolerating Diet, Ambulating, Urinating - Review of Systems General: Reports: No Symptoms HEENT: Reports: No Symptoms Pulmonary: Reports: Cough. Denies: Shortness of Breath, Sputum Cardiovascular: Reports: No Symptoms. Denies: Chest Pain Gastrointestinal: Reports: No Symptoms. Denies: Abdominal Pain, Nausea, Vomiting Neurological: Reports: No Symptoms Psychiatric: Reports: No Symptoms - Patient Data Vitals - Most Recent: Last Vital Signs Temp 97.5 F 08/08/19 08:00 Pulse 62 08/08/19 08:00 Resp 22 H 08/08/19 08:00 BP 138/86 08/08/19 08:00 Pulse Ox 98 08/08/19 08:00 Weight - Most Recent: 60.8 kg I&O - Last 24 hours: Intake & Output 08/07/19 08/08/19 08/08/19 22:59 06:59 14:59 Intake Total 500 1724 Output Total 1000 850 Balance -500 874 Lab Results - Last 24 hrs: Laboratory Results - last 24 hr 08/07/19 08/07/19 08/07/19 Range/Units 05:14 13:15 19:10 WBC (4.0-11.0) K/uL RBC (4.30-5.90) M/uL Hgb (12.0-16.0) g/dL Hct (36.0-46.0) % MCV (80.0-98.0) fL MCH (27.0-32.0) pg MCHC (31.0-37.0) g/dL RDW Std Deviation (28.0-62.0) fl RDW Coeff of Jamil (11.0-15.0) % Plt Count (150-400) K/uL MPV (7.40-12.00) fL Neut % (Auto) (48.0-80.0) % Lymph % (Auto) (16.0-40.0) % Chaves % (Auto) (0.0-15.0) % Eos % (Auto) (0.0-7.0) % Baso % (Auto) (0.0-1.5) % Neut # (Auto) (1.4-5.7) K/uL Lymph # (Auto) (0.6-2.4) K/uL Chaves # (Auto) (0.0-0.8) K/uL Eos # (Auto) (0.0-0.7) K/uL Baso # (Auto) (0.0-0.1) K/uL Nucleated RBC % /100WBC Nucleated RBCs # K/uL Sodium (136-145) mmol/L Potassium (3.5-5.1) mmol/L Chloride (98-107) mmol/L Carbon Dioxide (21.0-32.0) mmol/L BUN (7.0-18.0) mg/dL Creatinine (0.6-1.0) mg/dL Est Cr Clr Drug Dosing mL/min Estimated GFR (MDRD) ml/min Glucose (74-106) mg/dL Calcium (8.5-10.1) mg/dL Troponin I < 0.050 < 0.050 (0.000-0.056) ng/mL Lipase 118 (73-393) U/L 08/08/19 08/08/19 Range/Units 05:17 05:17 WBC 17.36 H (4.0-11.0) K/uL RBC 4.41 (4.30-5.90) M/uL Hgb 12.2 (12.0-16.0) g/dL Hct 38.2 (36.0-46.0) % MCV 86.6 (80.0-98.0) fL MCH 27.7 (27.0-32.0) pg MCHC 31.9 (31.0-37.0) g/dL RDW Std Deviation 45.7 (28.0-62.0) fl RDW Coeff of Jamil 14 (11.0-15.0) % Plt Count 173 (150-400) K/uL MPV 10.70 (7.40-12.00) fL Neut % (Auto) 68.4 (48.0-80.0) % Lymph % (Auto) 22.9 (16.0-40.0) % Chaves % (Auto) 7.9 (0.0-15.0) % Eos % (Auto) 0.7 (0.0-7.0) % Baso % (Auto) 0.1 (0.0-1.5) % Neut # (Auto) 11.9 H (1.4-5.7) K/uL Lymph # (Auto) 4.0 H (0.6-2.4) K/uL Chaves # (Auto) 1.4 H (0.0-0.8) K/uL Eos # (Auto) 0.1 (0.0-0.7) K/uL Baso # (Auto) 0.0 (0.0-0.1) K/uL Nucleated RBC % 0.0 /100WBC Nucleated RBCs # 0 K/uL Sodium 137 (136-145) mmol/L Potassium 4.1 (3.5-5.1) mmol/L Chloride 104 (98-107) mmol/L Carbon Dioxide 22.1 (21.0-32.0) mmol/L BUN 29 H (7.0-18.0) mg/dL Creatinine 1.1 H (0.6-1.0) mg/dL Est Cr Clr Drug Dosing 50.24 mL/min Estimated GFR (MDRD) 50.2 ml/min Glucose 143 H (74-106) mg/dL Calcium 8.7 (8.5-10.1) mg/dL Troponin I (0.000-0.056) ng/mL Lipase (73-393) U/L Med Orders - Current: Current Medications Acetaminophen (Tylenol) 650 mg PO Q4H PRN PRN Reason: Pain (Mild 1-3)/fever Last Admin: 08/06/19 23:55 Dose: 650 mg Albuterol/Ipratropium (Duoneb 3.0-0.5 Mg/3 Ml) 3 ml NEB Q4HRRT [facility] Last Admin: 08/08/19 06:14 Dose: 3 ml Azithromycin (Zithromax) 500 mg PO Q24H [facility] Last Admin: 08/07/19 16:00 Dose: 500 mg Benzonatate (Tessalon Perles) 200 mg PO TID PRN PRN Reason: Cough Last Admin: 08/06/19 17:54 Dose: 200 mg Clonidine HCl (Catapres) 0.1 mg PO BID [facility] Last Admin: 08/07/19 21:27 Dose: 0.1 mg Docusate Sodium (Colace) 100 mg PO BID PRN PRN Reason: Constipation Escitalopram Oxalate (Lexapro) 20 mg PO DAILY [facility] Last Admin: 08/07/19 08:05 Dose: 20 mg Magnesium Hydroxide (Milk Of Magnesia) 30 ml PO DAILY PRN PRN Reason: Constipation Methylprednisolone Sodium Succinate (Solu-Medrol) 40 mg IVPUSH DAILY [facility] Nitroglycerin (Nitrostat) 0.4 mg SL Q5M PRN PRN Reason: Chest Pain Last Admin: 08/07/19 07:54 Dose: 0.4 mg Oxybutynin Chloride (Oxybutynin) 5 mg PO BEDTIME [facility] Last Admin: 08/07/19 21:27 Dose: 5 mg Pantoprazole Sodium (Protonix) 40 mg PO ACBREAKFAST [facility] Last Admin: 08/08/19 06:46 Dose: 40 mg Budesonide/Formoterol Fumarate 1 Puff 1 each INH BID [facility] Last Admin: 08/08/19 08:32 Dose: 1 each Umeclidinium [place] [Incruse Ellipta*] 1 Puff 1 each INH DAILY [facility] Last Admin: 08/08/19 08:32 Dose: 1 each Varenicline Tartrate ([Chantix] 1 Mg) 1 each PO BID [facility] Last Admin: 08/07/19 21:27 Dose: 1 each Zinc Gluconate 50 Mg 1 each PO DAILY [facility] Last Admin: 08/07/19 08:17 Dose: Not Given Sodium Chloride (Saline Flush) 10 ml FLUSH ASDIRECTED PRN PRN Reason: Keep Vein Open Sodium Chloride (Saline Flush) 2.5 ml FLUSH ASDIRECTED PRN PRN Reason: Keep Vein Open Sucralfate (Carafate) 1 gm PO TIDAC [facility] Last Admin: 08/08/19 06:46 Dose: 1 gm Venlafaxine HCl (Effexor Xr) 75 mg PO DAILY [facility] Last Admin: 08/07/19 08:07 Dose: 75 mg Discontinued Medications Albuterol/Ipratropium (Duoneb 3.0-0.5 Mg/3 Ml) 3 ml NEB ONETIME ONE Stop: 08/06/19 09:36 Last Admin: 08/06/19 10:00 Dose: 3 ml Albuterol/Ipratropium (Duoneb 3.0-0.5 Mg/3 Ml) Confirm Administered Dose 6 ml .ROUTE .STK-MED ONE Stop: 08/06/19 09:55 Last Admin: 08/06/19 10:00 Dose: 6 ml Albuterol/Ipratropium (Duoneb 3.0-0.5 Mg/3 Ml) 6 ml NEB ONETIME ONE Stop: 08/06/19 10:00 Last Admin: 08/06/19 10:01 Dose: Not Given Aspirin (Aspirin) 325 mg PO ONETIME ONE Stop: 08/07/19 07:26 Last Admin: 08/07/19 07:45 Dose: 325 mg Aspirin (Aspirin) 325 mg PO ONETIME ONE Stop: 08/07/19 07:46 Last Admin: 08/07/19 07:40 Dose: Not Given Aspirin (Aspirin) Confirm Administered Dose 325 mg .ROUTE .STK-MED ONE Stop: 08/07/19 07:42 Last Admin: 08/07/19 09:39 Dose: Not Given Calcium Gluconate (Calcium Gluconate) 1 gm IVPUSH ONETIME ONE Stop: 08/07/19 07:41 Last Admin: 08/07/19 07:52 Dose: 1 gm Calcium Gluconate (Calcium Gluconate) Confirm Administered Dose 1 gm .ROUTE .STK -MED ONE Stop: 08/07/19 07:52 Last Admin: 08/07/19 09:40 Dose: Not Given Al Hydroxide/Mg Hydroxide 15 ml/ Metoclopramide HCl 5 mg/Lidocaine HCl 5 ml 0 ml PO STAT ONE Stop: 08/06/19 11:12 Last Admin: 08/06/19 11:33 Dose: 1 each Al Hydroxide/Mg Hydroxide 15 (ml/ Lidocaine HCl 5 ml) 0 ml PO ONETIME ONE Stop: 08/07/19 08:31 Last Admin: 08/07/19 08:55 Dose: 20 each Magnesium Sulfate 2 gm/ Premix 50 mls @ 50 mls/hr IV ONETIME ONE Stop: 08/06/19 10:37 Last Admin: 08/06/19 10:24 Dose: Not Given Magnesium Sulfate 1 gm/ Sodium (Chloride) 52 mls @ 52 mls/hr IV ONETIME ONE Stop: 08/06/19 10:59 Last Admin: 08/06/19 10:08 Dose: 52 mls/hr Sodium Chloride (Normal Saline) 1,000 mls @ 75 mls/hr IV Q13H [facility] Last Admin: 08/07/19 03:45 Dose: 75 mls/hr Pantoprazole Sodium 40 mg/ (Sodium Chloride) 10 mls @ 300 mls/hr IV NOW ONE Stop: 08/06/19 15:06 Last Admin: 08/06/19 15:25 Dose: 300 mls/hr Lisinopril (Prinivil) 10 mg PO DAILY [facility] Methylprednisolone Sodium Succinate (Solu-Medrol) 125 mg IVPUSH ONETIME ONE Stop: 08/06/19 09:38 Last Admin: 08/06/19 10:08 Dose: 125 mg Methylprednisolone Sodium Succinate (Solu-Medrol) 40 mg IVPUSH Q8H [facility] Last Admin: 08/07/19 08:08 Dose: 40 mg Nitroglycerin (Nitrostat) Confirm Administered Dose 0.4 mg .ROUTE .STK-MED ONE Stop: 08/07/19 07:43 Last Admin: 08/07/19 09:40 Dose: Not Given Prazosin HCl (Minpress) 2 mg PO DAILY [facility] - Exam General: Reports: Alert, Oriented, Cooperative Lungs: Reports: Clear to Auscultation Cardiovascular: Reports: Regular Rate, Regular Rhythm GI/Abdominal Exam: Normal Bowel Sounds, Soft, Non-Tender Extremities: Normal Inspection, Normal Range of Motion Wound/Incisions: Reports: Healing Well Neurological: Reports: No New Focal Deficit Psy/Mental Status: Reports: Alert, Normal Affect, Normal Mood
[2019-08-08] MEDS ORDERED: methylPREDNISolone Sodium Succinate 40 MG/1 ML SDV IVPUSH SCH (09:00)
[2019-08-08] MEDS: cloNIDine 0.1 MG Tab PO SCH (09:23)
[2019-08-08] MEDS: Escitalopram 10 MG Tab PO SCH (09:23)
[2019-08-08] MEDS: Venlafaxine 75 MG Cap.ER PO SCH (09:23)
[2019-08-08] MEDS: Varenicline Tartrate [Chantix] 1 MG PO SCH (09:24)
[2019-08-08] MEDS: Zinc Gluconate 50 MG PO SCH (09:25)
[2019-08-08 11:50] VITALS: BP 136/84; PULSE 74
== END 2019-08-08 13:37 | disposition home or self-care (01) ==
LOC: MW.ED 09:18 → MW.MS 13:10
PROVIDERS: ADMIT Internal Medicine; ATTEND Internal Medicine
DX: J44.1 Chronic obstructive pulmonary disease with (acute) exacerbation (principal); E86.0 Dehydration; N17.9 Acute kidney failure, unspecified; K52.9 Noninfective gastroenteritis and colitis, unspecified; F10.10 Alcohol abuse, uncomplicated; I10 Essential (primary) hypertension; F41.9 Anxiety disorder, unspecified; F32.9 Major depressive disorder, single episode, unspecified; Z87.891 Personal history of nicotine dependence; Z99.81 Dependence on supplemental oxygen; Z86.19 Personal history of other infectious and parasitic diseases; Z79.899 Other long term (current) drug therapy
CPT/HCPCS: 36415; 71045; 80048; 80053; 81003; 83690; 83735; 83880; 84484; 85025; 93005; 94640; A9270; C9113; J0610; J2920; J2930; J3475; J7030; J7050; J7620-GY

== ENCOUNTER 2019-09-01 11:50 | Inpatient (IN) | payer MEDICARE, MEDICAID ==
--- NOTE | 2019-09-01 11:59 | EDM.PDOC ---
ED HPI GENERAL MEDICAL PROBLEM - General Chief Complaint: Respiratory Problem Stated Complaint: SOB Time Seen by Provider: 09/01/19 11:57 Source of Information: Reports: Patient History Limitations: Reports: No Limitations - History of Present Illness INITIAL COMMENTS - FREE TEXT/NARRATIVE: Patient is a 64-year-old female with a known history of COPD O2 dependent on 2 L and frequent admissions for her COPD and pneumonia. Patient is complaining of having a productive cough producing a yellow-colored mucus for the past 4 days. She is complaining of both fever and chills none today but had some yesterday. She denies any swelling to her ankles or calfs. Patient is having severe dyspnea with exertion dates she cannot take more than a few steps before having to sit down. Pain no nausea vomiting or diarrhea. She has had no bloody or tarry stools. Patient was admitted August 06 for similar symptoms. She denies any dysuria or having a headache. Patient has a neck cigarette smoker and has not traveled outside the state recently. Duration: Day(s): (4) Location: Reports: Chest Worsens with: Reports: Movement Associated Symptoms: Reports: cough w sputum, Fever/Chills, Malaise, Shortness of Breath. Denies: Diaphoresis, Nausea/Vomiting headache Pain Score (Numeric/FACES): 6 - Related Data Allergies Allergy/AdvReac Type Severity Reaction Status Date / Time No Known Allergies Allergy Verified 09/01/19 11:54 Home Meds: Home Meds Albuterol [Proventil HFA] 1 puff INH QID PRN 09/22/18 [History] Albuterol/Ipratropium [DuoNeb 3.0-0.5 MG/3 ML] 3 ml NEB Q8HR PRN 09/22/18 [ History] Budesonide/Formoterol Fumarate [Symbicort 80-4.5 MCG] 1 puff IH BID 09/22/18 [ History] Venlafaxine HCl [Venlafaxine ER] 75 mg PO DAILY 09/22/18 [History] cloNIDine [Catapres] 0.1 mg PO BID 09/22/18 [History] Umeclidinium [place] [Incruse Ellipta*] 1 puff DAILY 05/19/19 [History] Varenicline Tartrate [Chantix] 1 mg PO BID 05/19/19 [History] Albuterol Sulfate [Albuterol Sulfate Hfa] 2 puff INH ASDIRECTED PRN 08/06/19 [ History] Albuterol [Ventolin HFA] 2 puff INH ASDIRECTED PRN 08/06/19 [History] Escitalopram [Lexapro] 20 mg PO DAILY 08/06/19 [History] Lisinopril [Zestril] 10 mg PO DAILY 08/06/19 [History] Oxybutynin 5 mg PO BEDTIME 08/06/19 [History] Pantoprazole [ProTONIX] 40 mg PO ACBREAKFAST #30 tab.cr 08/08/19 [Rx] Sucralfate [Carafate] 1 gm PO QIDACANDBED #120 tablet 08/08/19 [Rx] Ibuprofen mg PO ASDIRECTED PRN 09/01/19 [History] Phenylephrine/Dm/Acetaminop/Gg [Mucinex Fast-Max Cold-Flu Liq] ml PO ASDIRECTED PRN 09/01/19 [History] Simvastatin [Zocor] 10 mg PO DAILY 09/01/19 [History] diphenhydrAMINE HCL [Diphenhydramine HCl] 25 mg PO BEDTIME 09/01/19 [History] Past Medical History - Past Health History Medical/Surgical History: Denies Medical/Surgical History HEENT History: Reports: None Cardiovascular History: Reports: Hypertension Respiratory History: Reports: COPD, Other (See Below) Other Respiratory History: Home O2 @ 2LPM Gastrointestinal History: Reports: Diverticulosis Genitourinary History: Reports: Other (See Below) Other Genitourinary History: kidney stones [employer]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: Reports: None Musculoskeletal History: Reports: None Neurological History: Reports: None Psychiatric History: Reports: Addiction, Anxiety, Depression Endocrine/Metabolic History: Reports: None Hematologic History: Reports: None Immunologic History: Reports: None Oncologic (Cancer) History: Reports: None Dermatologic History: Reports: None - Infectious Disease History Infectious Disease History: Reports: Hepatitis C Other Infectious Disease History: unsure of which kind of hepatitis - Past Surgical History Head Surgeries/Procedures: Reports: None HEENT Surgical History: Reports: None Cardiovascular Surgical History: Reports: None Respiratory Surgical History: Reports: None GI Surgical History: Reports: Appendectomy Female Surgical History: Reports: None Endocrine Surgical History: Reports: None Neurological Surgical History: Reports: None Musculoskeletal Surgical History: Reports: Other (See Below) Other Musculoskeletal Surgeries/Procedures:: rt shoulder surg Oncologic Surgical History: Reports: None Dermatological Surgical History: Reports: None Social & Family History - Family History Family Medical History: Noncontributory Endocrine/Metabolic: Reports: Diabetes, type II Oncologic: Reports: Hodgkin's Lymphoma - Caffeine Use Caffeine Use: Reports: Coffee, Soda Caffeine Use Comment: 5 cups avg per day - Living Situation & Occupation Living situation: Reports: Single ED ROS GENERAL - Review of Systems Review Of Systems: Comprehensive ROS is negative, except as noted in HPI. ED EXAM, GENERAL - Physical Exam Exam: See Below Exam Limited By: Respiratory Distress General Appearance: Alert, Anxious, Moderate Distress Throat/Mouth: Normal Inspection Head: Atraumatic, Normocephalic Neck: Normal Inspection, Supple Respiratory/Chest: Decreased Breath Sounds, Rhonchi (On right base.), Wheezing, Prolonged Expiration (Increased work of breathing with end expiratory wheezing. No area of consolidation appreciated.) Cardiovascular: Normal Peripheral Pulses, Regular Rate, Rhythm, No Edema, No JVD GI/Abdominal: Normal Bowel Sounds, Soft, Non-Tender, No Distention Back Exam: No: CVA Tenderness (R) Extremities: Normal Inspection, No Pedal Edema Neurological: Alert, Normal Cognition Psychiatric: Anxious Skin Exam: Warm, Dry, No Rash Course - Vital Signs Text/Narrative:: Patient is feeling better though still working hard and still short of breath. She has had 2 DuoNeb treatments Solu-Medrol 125 mg IV and 2 g magnesium. Lab work is unremarkable with a lactate of 0.7. X-ray shows no change from previous though she does have a lack of lung markings which is more pronounced on the right upper lung. Since repeat lung exam shows very to have rhonchi on the right base and expiratory wheezing on the left side. She still appears very short of breath but does not want additional DuoNeb treatment currently. Feels she is too sick to go home at this time. Last Recorded V/S: Last Vital Signs Temp 36.2 C 09/01/19 11:54 Pulse 79 09/01/19 11:54 Resp 26 H 09/01/19 11:54 BP 137/87 09/01/19 11:54 Pulse Ox 96 09/01/19 11:54 - Orders/Labs/Meds Orders: Active Orders 24 hr Category Date Time Status RT Aerosol Therapy [RC] ASDIRECTED Care 09/01/19 12:08 Active RT Aerosol Therapy [RC] ASDIRECTED Care 09/01/19 12:40 Active CULTURE BLOOD [BC] Stat Lab 09/01/19 12:28 Received CULTURE BLOOD [BC] Stat Lab 09/01/19 12:48 Received Magnesium Sulfate/Water [Magnesium Sulfate in Water Med 09/01/19 12:10 Active Premix] 2 gm Premix Bag 1 bag IV ONETIME Blood Culture x2 Reflex Set [OM.PC] Stat Oth 09/01/19 12:11 Ordered Medication Orders Magnesium Sulfate 2 gm/ Premix 50 mls @ 50 mls/hr IV ONETIME ONE Stop: 09/01/19 13:09 Last Admin: 09/01/19 12:40 Dose: 50 mls/hr Labs: Laboratory Tests 09/01/19 09/01/19 09/01/19 Range/Units 12:28 12:28 12:28 WBC 7.21 (4.0-11.0) K/uL RBC 4.70 (4.30-5.90) M/uL Hgb 13.0 (12.0-16.0) g/dL Hct 40.6 (36.0-46.0) % MCV 86.4 (80.0-98.0) fL MCH 27.7 (27.0-32.0) pg MCHC 32.0 (31.0-37.0) g/dL RDW Std Deviation 45.0 (28.0-62.0) fl RDW Coeff of Jamil 14 (11.0-15.0) % Plt Count 205 (150-400) K/uL MPV 9.10 (7.40-12.00) fL Neut % (Auto) 55.8 (48.0-80.0) % Lymph % (Auto) 28.3 (16.0-40.0) % [place] % (Auto) 10.0 (0.0-15.0) % Eos % (Auto) 5.5 (0.0-7.0) % Baso % (Auto) 0.4 (0.0-1.5) % Neut # (Auto) 4.0 (1.4-5.7) K/uL Lymph # (Auto) 2.0 (0.6-2.4) K/uL [place] # (Auto) 0.7 (0.0-0.8) K/uL Eos # (Auto) 0.4 (0.0-0.7) K/uL Baso # (Auto) 0.0 (0.0-0.1) K/uL Nucleated RBC % 0.0 /100WBC Nucleated RBCs # 0 K/uL Lactate 0.7 (0.20-2.00) mmol/L Sodium 139 (136-145) mmol/L Potassium 4.1 (3.5-5.1) mmol/L Chloride 104 (98-107) mmol/L Carbon Dioxide 25.5 (21.0-32.0) mmol/L BUN 24 H (7.0-18.0) mg/dL Creatinine 1.1 H (0.6-1.0) mg/dL Est Cr Clr Drug Dosing 48.73 mL/min Estimated GFR (MDRD) 50.2 ml/min Glucose 102 (74-106) mg/dL Calcium 8.8 (8.5-10.1) mg/dL Total Bilirubin 0.4 (0.2-1.0) mg/dL AST 19 (15-37) IU/L ALT 19 (14-63) IU/L Alkaline Phosphatase 85 (46-116) U/L Total Protein 7.3 (6.4-8.2) g/dL Albumin 3.6 (3.4-5.0) g/dL Globulin 3.7 (2.6-4.0) g/dL Albumin/Globulin Ratio 1.0 (0.9-1.6) Meds: Medications Generic Name Dose Route Start Last Admin Trade Name Freq PRN Reason Stop Dose Admin Magnesium Sulfate 2 gm/ Premix 50 mls @ 50 mls/hr 09/01/19 12:10 09/01/19 12: 40 IV 09/01/19 13:09 50 mls/hr ONETIME ONE Administration Discontinued Medications Generic Name Dose Route Start Last Admin Trade Name Freq PRN Reason Stop Dose Admin Albuterol/Ipratropium 3 ml 09/01/19 12:07 09/01/19 12:34 Duoneb 3.0-0.5 Mg/3 Ml NEB 09/01/19 12:08 3 ml ONETIME ONE Administration Albuterol/Ipratropium Confirm 09/01/19 12:36 09/01/19 12:43 Duoneb 3.0-0.5 Mg/3 Ml Administered 09/01/19 12:37 Not Given Dose 3 ml .ROUTE .STK-MED ONE Albuterol/Ipratropium 3 ml 09/01/19 12:40 09/01/19 12:43 Duoneb 3.0-0.5 Mg/3 Ml NEB 09/01/19 12:41 3 ml ONETIME ONE Administration Methylprednisolone Sodium Succinate 125 mg 09/01/19 12:07 09/01/19 12:36 Solu-Medrol IV 09/01/19 12:08 125 mg ONETIME ONE Administration Departure - Departure Time of Disposition: 13:27 Disposition: Admitted As Inpatient 67 Condition: Fair Clinical Impression: COPD exacerbation, Dyspnea on minimal exertion - Discharge Information Forms: ED Department Discharge Sepsis Event Note - Evaluation Sepsis Screening Result: Possible Sepsis Risk - Focused Exam Vital Signs: Vital Signs Temp Pulse Resp BP Pulse Ox 09/01/19 11:54 36.2 C 79 26 H 137/87 96 Date Exam was Performed: 09/01/19 Time Exam was Performed: 13:07 - My Orders Last 24 Hours: My Active Orders 09/01/19 12:08 RT Aerosol Therapy [RC] ASDIRECTED 09/01/19 12:10 Magnesium Sulfate/Water [Magnesium Sulfate in Water Premix] 2 gm Premix Bag 1 bag IV ONETIME 09/01/19 12:11 Blood Culture x2 Reflex Set [OM.PC] Stat 09/01/19 12:28 CULTURE BLOOD [BC] Stat 09/01/19 12:40 RT Aerosol Therapy [RC] ASDIRECTED 09/01/19 12:48 CULTURE BLOOD [BC] Stat - Assessment/Plan Last 24 Hours: My Active Orders 09/01/19 12:08 RT Aerosol Therapy [RC] ASDIRECTED 09/01/19 12:10 Magnesium Sulfate/Water [Magnesium Sulfate in Water Premix] 2 gm Premix Bag 1 bag IV ONETIME 09/01/19 12:11 Blood Culture x2 Reflex Set [OM.PC] Stat 09/01/19 12:28 CULTURE BLOOD [BC] Stat 09/01/19 12:40 RT Aerosol Therapy [RC] ASDIRECTED 09/01/19 12:48 CULTURE BLOOD [BC] Stat
[2019-09-01] MEDS ORDERED: Albuterol/Ipratropium 3.0-0.5 MG/3 ML Neb Soln NEB ONE ×3 (12:07→14:08)
[2019-09-01] MEDS ORDERED: methylPREDNISolone Sodium Succinate 125 MG/2 ML SDV IV ONE (12:07)
[2019-09-01] MEDS ORDERED: Magnesium Sulfate/Water 2 GM in Premix Bag 1 BAG IV ONE (12:10)
[2019-09-01] MEDS ORDERED: Albuterol/Ipratropium 3.0-0.5 MG/3 ML Neb Soln ONE (12:36)
[2019-09-01 13:00] LABS: CARBON DIOXIDE,CO2 25.5 mmol/L (21.0-32.0); POTASSIUM,K 4.1 mmol/L (3.5-5.1)
--- NOTE | 2019-09-01 13:06 | CR ---
Chest: Frontal view of the chest was obtained utilizing portable technique. Comparison: Prior chest x-ray of 08/07/19. Heart size and mediastinum are normal. Lung markings are mildly increased which appears stable. Slight oligemic change is noted within the right upper chest which is believed to be due to more focal emphysematous change. Lungs otherwise are clear with no acute parenchymal change. Bony structures are grossly intact. Impression: 1. Emphysematous change. 2. Nothing acute is appreciated on frontal chest x-ray. Diagnostic code #3 This report was dictated in MDT
--- NOTE | 2019-09-01 14:37 | PCM.HP.2 ---
Addendum entered and electronically signed by Fifi Nelson NP 09/01/19 15:05 : R index finger abscess, correction. Original Note: H&P History of Present Illness - General Date of Service: 09/01/19 Admit Problem/Dx: Admission Diagnosis/Problem Admission Diagnosis/Problem COPD, Severe chronic obstructive pulmonary disease Source of Information: Patient, Old Records History Limitations: Reports: No Limitations - History of Present Illness Initial Comments - Free Text/Narative: This 64 year old female with pmh of oxygen dependent COPD, HTN, Hep C, anxiety and hx tobacco use presented to the ED with complaints of dyspnea and cough, she reports 4 days ago she noticed increased shortness of breath and productive cough with yellow sputum, which is a change for her. She reports she has been using inhalers as prescribed at home. Has not yet made it to see pulmonology yet. She denies fevers, reports temp of 99 yesterday. reports she has blisters in her nose and lips, reports history of cold sores. No sinus congestion or ear pain. No sore throat. No chest pain. No palpitations. No abdominal pain or Urinary concerns. Reports pain to R index had hang nail now swollen and painful to touch, no purulence noted. No focal neurological deficits. Former smoker, quit 5 years ago, rare social alcohol use, former heavy alcohol use, and no recreational drug use. In the ED no leukocytosis noted, BUN 24, Cr 1.1. CXR negative, showing emphysematous changes only. She was treated with Magnesium, Solumedrol and Duonebs. She continues to be dyspnea and has increased work of breathing. She will be admitted for acute on chronic respiratory failure, COPD exacerbation. headache Pain Score (Numeric/FACES): 6 - Related Data Allergies/Adverse Reactions: Allergies Allergy/AdvReac Type Severity Reaction Status Date / Time No Known Allergies Allergy Verified 09/01/19 11:54 Home Medications: Home Meds Albuterol [Proventil HFA] 1 puff INH QID PRN 09/22/18 [History] Albuterol/Ipratropium [DuoNeb 3.0-0.5 MG/3 ML] 3 ml NEB Q8HR PRN 09/22/18 [ History] Budesonide/Formoterol Fumarate [Symbicort 80-4.5 MCG] 1 puff IH BID 09/22/18 [ History] Venlafaxine HCl [Venlafaxine ER] 75 mg PO DAILY 09/22/18 [History] cloNIDine [Catapres] 0.1 mg PO BID 09/22/18 [History] Umeclidinium [place] [Incruse Ellipta*] 1 puff DAILY 05/19/19 [History] Varenicline Tartrate [Chantix] 1 mg PO BID 05/19/19 [History] Albuterol Sulfate [Albuterol Sulfate Hfa] 2 puff INH ASDIRECTED PRN 08/06/19 [ History] Albuterol [Ventolin HFA] 2 puff INH ASDIRECTED PRN 08/06/19 [History] Escitalopram [Lexapro] 20 mg PO DAILY 08/06/19 [History] Lisinopril [Zestril] 10 mg PO DAILY 08/06/19 [History] Oxybutynin 5 mg PO BEDTIME 08/06/19 [History] Pantoprazole [ProTONIX] 40 mg PO ACBREAKFAST #30 tab.cr 08/08/19 [Rx] Sucralfate [Carafate] 1 gm PO QIDACANDBED #120 tablet 08/08/19 [Rx] Ibuprofen mg PO ASDIRECTED PRN 09/01/19 [History] Phenylephrine/Dm/Acetaminop/Gg [Mucinex Fast-Max Cold-Flu Liq] ml PO ASDIRECTED PRN 09/01/19 [History] Simvastatin [Zocor] 10 mg PO DAILY 09/01/19 [History] diphenhydrAMINE HCL [Diphenhydramine HCl] 25 mg PO BEDTIME 09/01/19 [History] Past Medical History - Past Health History Medical/Surgical History: Denies Medical/Surgical History HEENT History: Reports: None Cardiovascular History: Reports: Hypertension Respiratory History: Reports: COPD, Other (See Below) Other Respiratory History: Home O2 @ 2LPM Gastrointestinal History: Reports: Diverticulosis Genitourinary History: Reports: Other (See Below) Other Genitourinary History: kidney stones [employer] History: Reports: None Musculoskeletal History: Reports: None Neurological History: Reports: None Psychiatric History: Reports: Addiction, Anxiety, Depression Endocrine/Metabolic History: Reports: None Hematologic History: Reports: None Immunologic History: Reports: None Oncologic (Cancer) History: Reports: None Dermatologic History: Reports: None - Infectious Disease History Infectious Disease History: Reports: Hepatitis C Other Infectious Disease History: unsure of which kind of hepatitis - Past Surgical History Head Surgeries/Procedures: Reports: None HEENT Surgical History: Reports: None Cardiovascular Surgical History: Reports: None Respiratory Surgical History: Reports: None GI Surgical History: Reports: Appendectomy Female Surgical History: Reports: None Endocrine Surgical History: Reports: None Neurological Surgical History: Reports: None Musculoskeletal Surgical History: Reports: Other (See Below) Other Musculoskeletal Surgeries/Procedures:: rt shoulder surg Oncologic Surgical History: Reports: None Dermatological Surgical History: Reports: None Social & Family History - Family History Family Medical History: Noncontributory Endocrine/Metabolic: Reports: Diabetes, type II Oncologic: Reports: Hodgkin's Lymphoma - Tobacco Use Smoking Status *Q: Former Smoker Used Tobacco, but Quit: Yes Month/Year Tobacco Last Used: 2018 - Caffeine Use Caffeine Use: Reports: Coffee, Soda Caffeine Use Comment: 5 cups avg per day - Recreational Drug Use Recreational Drug Use: No - Living Situation & Occupation Living situation: Reports: Single H&P Review of Systems - Review of Systems: Review Of Systems: See Below General: Reports: Malaise, Weakness. Denies: Fever, Chills HEENT: Reports: Other (soreness to L nare, blister. Blistering and dryness noted to oral labia). Denies: Sinus Congestion Pulmonary: Reports: Shortness of Breath, Wheezing, Cough, Sputum. Denies: Hemoptysis Cardiovascular: Reports: No Symptoms. Denies: Chest Pain, Palpitations, Lightheadedness Gastrointestinal: Reports: No Symptoms. Denies: Abdominal Pain, Black Stool, Bloody Stool, Distension, Nausea, Vomiting Genitourinary: Reports: No Symptoms. Denies: Dysuria, Frequency, Burning Musculoskeletal: Reports: No Symptoms. Denies: Neck Pain, Shoulder Pain Skin: Reports: No Symptoms Psychiatric: Reports: No Symptoms. Denies: Depression, Anxiety Neurological: Reports: No Symptoms Hematologic/Lymphatic: Reports: No Symptoms Immunologic: Reports: No Symptoms Exam - Exam Exam: See Below - Vital Signs Vital Signs: Last Vital Signs Temp 97.1 F 09/01/19 11:54 Pulse 73 09/01/19 13:50 Resp 22 H 09/01/19 13:50 BP 136/78 09/01/19 13:50 Pulse Ox 96 09/01/19 13:50 Weight: 58.967 kg - Exam General: Alert, Oriented HEENT: Conjunctiva Clear, Mucosa Moist & [place]. No: Pupils Reactive Lungs: Rhonchi (throughout), Wheezing (throughout). No: Normal Respiratory Effort Cardiovascular: Regular Rate, Regular Rhythm GI/Abdominal Exam: Normal Bowel Sounds, Soft, Non-Tender Back Exam: Normal Inspection, Full Range of Motion Extremities: Normal Inspection, Normal Range of Motion, Non-Tender, No Pedal Edema Skin: Wound (L index finger noted to have erythema, swelling and tenders, small fluctuant area noted just below nail bed. No drainage. ) Neurological: Cranial Nerves Intact Neuro Extensive - Mental Status: Alert, Oriented x3 Neuro Extensive - Motor, Sensory, Reflexes: CN II-XII Intact - Patient Data Lab Results Last 24 hrs: Laboratory Results - last 24 hr 09/01/19 09/01/19 09/01/19 Range/Units 12:28 12:28 12:28 WBC 7.21 (4.0-11.0) K/uL RBC 4.70 (4.30-5.90) M/uL Hgb 13.0 (12.0-16.0) g/dL Hct 40.6 (36.0-46.0) % MCV 86.4 (80.0-98.0) fL MCH 27.7 (27.0-32.0) pg MCHC 32.0 (31.0-37.0) g/dL RDW Std Deviation 45.0 (28.0-62.0) fl RDW Coeff of Jamil 14 (11.0-15.0) % Plt Count 205 (150-400) K/uL MPV 9.10 (7.40-12.00) fL Neut % (Auto) 55.8 (48.0-80.0) % Lymph % (Auto) 28.3 (16.0-40.0) % Esmeralda % (Auto) 10.0 (0.0-15.0) % Eos % (Auto) 5.5 (0.0-7.0) % Baso % (Auto) 0.4 (0.0-1.5) % Neut # (Auto) 4.0 (1.4-5.7) K/uL Lymph # (Auto) 2.0 (0.6-2.4) K/uL Esmeralda # (Auto) 0.7 (0.0-0.8) K/uL Eos # (Auto) 0.4 (0.0-0.7) K/uL Baso # (Auto) 0.0 (0.0-0.1) K/uL Nucleated RBC % 0.0 /100WBC Nucleated RBCs # 0 K/uL Lactate 0.7 (0.20-2.00) mmol/L Sodium 139 (136-145) mmol/L Potassium 4.1 (3.5-5.1) mmol/L Chloride 104 (98-107) mmol/L Carbon Dioxide 25.5 (21.0-32.0) mmol/L BUN 24 H (7.0-18.0) mg/dL Creatinine 1.1 H (0.6-1.0) mg/dL Est Cr Clr Drug Dosing 48.73 mL/min Estimated GFR (MDRD) 50.2 ml/min Glucose 102 (74-106) mg/dL Calcium 8.8 (8.5-10.1) mg/dL Total Bilirubin 0.4 (0.2-1.0) mg/dL AST 19 (15-37) IU/L ALT 19 (14-63) IU/L Alkaline Phosphatase 85 (46-116) U/L Total Protein 7.3 (6.4-8.2) g/dL Albumin 3.6 (3.4-5.0) g/dL Globulin 3.7 (2.6-4.0) g/dL Albumin/Globulin Ratio 1.0 (0.9-1.6) Result Diagrams: 09/01/19 12:28 09/01/19 12:28 Ryan Results Last 24 hrs: Microbiology 09/01/19 12:48 Anaerobic Blood Culture - Final Blood - Venous - Lab Draw Sepsis Event Note - Evaluation Sepsis Screening Result: Possible Sepsis Risk - Focused Exam Vital Signs: Vital Signs Temp Pulse Resp BP Pulse Ox 09/01/19 13:50 73 22 H 136/78 96 09/01/19 13:20 77 26 H 133/78 96 09/01/19 12:55 74 18 129/75 94 L 09/01/19 12:25 78 24 H 120/84 95 09/01/19 11:54 97.1 F 79 26 H 137/87 96 Date Exam was Performed: 09/01/19 Time Exam was Performed: 14:31 - Problem List (1) COPD exacerbation SNOMED Code(s): 856347191 ICD Code: J44.1 - CHRONIC OBSTRUCTIVE PULMONARY DISEASE W (ACUTE) EXACERBATION Status: Acute Current Visit: Yes (2) Anxiety SNOMED Code(s): 35891903 ICD Code: F41.9 - ANXIETY DISORDER, UNSPECIFIED Status: Chronic Current Visit: No (3) COPD (chronic obstructive pulmonary disease) SNOMED Code(s): 75444686 ICD Code: J44.9 - CHRONIC OBSTRUCTIVE PULMONARY DISEASE, UNSPECIFIED Status : Chronic Current Visit: No Qualifiers: COPD type: COPD with acute exacerbation Qualified Code(s): J44.1 - Chronic obstructive pulmonary disease with (acute) exacerbation (4) Depression SNOMED Code(s): 77549128 ICD Code: F32.9 - MAJOR DEPRESSIVE DISORDER, SINGLE EPISODE, UNSPECIFIED Status: Chronic Current Visit: No Qualifiers: Depression Type: unspecified Qualified Code(s): F32.9 - Major depressive disorder, single episode, unspecified (5) ETOH abuse SNOMED Code(s): 82863494 ICD Code: F10.10 - ALCOHOL ABUSE, UNCOMPLICATED Status: Chronic Current Visit: No (6) HTN (hypertension) SNOMED Code(s): 19489007 ICD Code: I10 - ESSENTIAL (PRIMARY) HYPERTENSION Status: Chronic Current Visit: No Qualifiers: Hypertension type: essential hypertension Qualified Code(s): I10 - Essential (primary) hypertension (7) History of tobacco abuse SNOMED Code(s): 767187813, 648693039 ICD Code: Z87.891 - PERSONAL HISTORY OF NICOTINE DEPENDENCE Status: Chronic Current Visit: No (8) Hx of hepatitis C SNOMED Code(s): 06457274280593, 04519477635878 ICD Code: Z86.19 - PERSONAL HISTORY OF OTHER INFECTIOUS AND PARASITIC DISEASES Status: Chronic Current Visit: No (9) Oxygen dependent SNOMED Code(s): 386127537425 ICD Code: Z99.81 - DEPENDENCE ON SUPPLEMENTAL OXYGEN Status: Chronic Current Visit: No Problem List Initiated/Reviewed/Updated: Yes Orders Last 24hrs: Active Orders 24 hr Category Date Time Status Admission Status [Patient Status] [ADT] Stat ADT 09/01/19 13:32 Active CULTURE BLOOD [BC] Stat Lab 09/01/19 12:28 Received CULTURE BLOOD [BC] Stat Lab 09/01/19 12:48 Results Blood Culture x2 Reflex Set [OM.PC] Stat Oth 09/01/19 12:11 Ordered Assessment/Plan Comment:: This 64 year old female admitted for acute on chronic respiratory failure and COPD exacerbation 1. Acute on chronic respiratory failure - Tachypnea noted on arrival with tachycardia. - Continue oxygen therapy 2 L NC per home use - IS, flutter valve - Duonebs scheduled and PRN 2. COPD exacerbation - Duonebs - Solumedrol TID - Respiratory consult - Continue home inhalers - Continue to recommend pulmonology outpatient evaluation - Azithromycin 500 mg PO daily 3. Oral/nasal herpes labialis - Acyclovir PO 4. L index abscess - No leukocytosis - Bactrim DS - Monitor labs in am - Warm compress PRN pain 5. HTN - Stable, continue home medications 6. Anxiety - Stable, continue home medications. Diet: Regular VTE prophylaxis: SCDs Code Status: Full Dispo: 2-3 days pending. - Mortality Measure Prognosis:: Good
[2019-09-01] MEDS ORDERED: Docusate Sodium 100 MG Cap PO PRN (15:00)
[2019-09-01] MEDS ORDERED: Acetaminophen 325 MG Tab PO PRN (15:00)
[2019-09-01] MEDS ORDERED: Sodium Chloride 0.9% 2.5 ML Syringe FLUSH PRN (15:00)
[2019-09-01] MEDS ORDERED: Albuterol 0.083% 2.5 MG/3 ML Neb Soln NEB PRN (15:00)
[2019-09-01] MEDS ORDERED: Ondansetron 4 MG/2 ML SDV IVPUSH PRN (15:00)
[2019-09-01] MEDS: Sulfamethoxazole/Trimethoprim 800-160 MG Tab PO SCH ×2 (16:03→21:34)
[2019-09-01] MEDS: Azithromycin 250 MG Tab PO SCH (16:03)
[2019-09-01] MEDS: Acyclovir 200 MG Cap PO SCH ×2 (16:04→21:34)
[2019-09-01] MEDS: Sucralfate 1 GM Tab PO SCH ×2 (16:04→21:31)
[2019-09-01] MEDS: Albuterol/Ipratropium 3.0-0.5 MG/3 ML Neb Soln NEB SCH ×2 (17:53→21:08)
[2019-09-01] MEDS ORDERED: cloNIDine 0.1 MG Tab PO SCH (21:00)
[2019-09-01] MEDS: Oxybutynin 5 MG Tab PO SCH (21:33)
[2019-09-01] MEDS: Simvastatin 10 MG Tab PO SCH (21:33)
[2019-09-01] MEDS: BUDESONIDE INH SCH (21:42)
[2019-09-01] MEDS: FORMOTEROL FUMARATE INH SCH (21:42)
[2019-09-01] MEDS: methylPREDNISolone Sodium Succinate 125 MG/2 ML SDV IV SCH (21:42)
[2019-09-02] MEDS: Albuterol/Ipratropium 3.0-0.5 MG/3 ML Neb Soln NEB SCH ×6 (01:43→21:26)
[2019-09-02] MEDS: Benzonatate 100 MG Cap PO PRN ×2 (01:43→13:26)
[2019-09-02] MEDS: Acyclovir 200 MG Cap PO SCH ×3 (06:38→21:40)
[2019-09-02] MEDS: Pantoprazole 40 MG Tab.CR PO SCH (06:38)
[2019-09-02] MEDS: Sucralfate 1 GM Tab PO SCH ×4 (06:38→20:19)
[2019-09-02 07:13] LABS: CARBON DIOXIDE,CO2 25.4 mmol/L (21.0-32.0); POTASSIUM,K 4.9 mmol/L (3.5-5.1)
[2019-09-02] MEDS ORDERED: Lisinopril 10 MG Tab PO SCH (09:00)
[2019-09-02] MEDS: Sulfamethoxazole/Trimethoprim 800-160 MG Tab PO SCH ×2 (09:10→20:19)
[2019-09-02] MEDS: Escitalopram 10 MG Tab PO SCH (09:10)
[2019-09-02] MEDS: methylPREDNISolone Sodium Succinate 125 MG/2 ML SDV IV SCH ×2 (09:12→20:19)
[2019-09-02] MEDS: Acetaminophen 325 MG Tab PO PRN ×2 (09:17→14:23)
[2019-09-02] MEDS: FORMOTEROL FUMARATE INH SCH ×2 (09:32→20:22)
[2019-09-02] MEDS: UMECLIDINIUM BROMIDE INH SCH (09:32)
[2019-09-02] MEDS: BUDESONIDE INH SCH ×2 (09:32→20:22)
--- NOTE | 2019-09-02 10:01 | PCM.PN ---
- General Info Date of Service: 09/02/19 Admission Dx/Problem (Free Text): Admission Diagnosis/Problem Admission Diagnosis/Problem COPD, Severe chronic obstructive pulmonary disease Subjective Update: Feeling sob of breath still, little improvement. Having a frontal headache. No chest pain. Finger hurts, but is improving Functional Status: Reports: Pain Controlled, Tolerating Diet, Ambulating, Urinating - Review of Systems HEENT: Reports: Headaches (frontal) Pulmonary: Reports: Shortness of Breath, Cough, Sputum, Wheezing. Denies: Hemoptysis Cardiovascular: Denies: Chest Pain, Palpitations Gastrointestinal: Denies: Abdominal Pain, Nausea, Vomiting Genitourinary: Reports: No Symptoms. Denies: Dysuria, Frequency, Burning Musculoskeletal: Reports: No Symptoms Skin: Reports: No Symptoms Neurological: Reports: No Symptoms Psychiatric: Reports: No Symptoms - Patient Data Vitals - Most Recent: Last Vital Signs Temp 96.8 F L 09/02/19 04:08 Pulse 84 09/02/19 04:08 Resp 20 09/02/19 04:08 BP 116/68 09/02/19 04:08 Pulse Ox 90 L 09/02/19 04:08 Weight - Most Recent: 58.967 kg I&O - Last 24 Hours: Intake & Output 09/01/19 09/02/19 09/02/19 22:59 06:59 14:59 Intake Total 240 350 Balance 240 350 Lab Results Last 24 Hours: Laboratory Results - last 24 hr 09/01/19 09/01/19 09/01/19 Range/Units 12:28 12:28 12:28 WBC 7.21 (4.0-11.0) K/uL RBC 4.70 (4.30-5.90) M/uL Hgb 13.0 (12.0-16.0) g/dL Hct 40.6 (36.0-46.0) % MCV 86.4 (80.0-98.0) fL MCH 27.7 (27.0-32.0) pg MCHC 32.0 (31.0-37.0) g/dL RDW Std Deviation 45.0 (28.0-62.0) fl RDW Coeff of Jamil 14 (11.0-15.0) % Plt Count 205 (150-400) K/uL MPV 9.10 (7.40-12.00) fL Neut % (Auto) 55.8 (48.0-80.0) % Lymph % (Auto) 28.3 (16.0-40.0) % [place] % (Auto) 10.0 (0.0-15.0) % Eos % (Auto) 5.5 (0.0-7.0) % Baso % (Auto) 0.4 (0.0-1.5) % Neut # (Auto) 4.0 (1.4-5.7) K/uL Lymph # (Auto) 2.0 (0.6-2.4) K/uL [place] # (Auto) 0.7 (0.0-0.8) K/uL Eos # (Auto) 0.4 (0.0-0.7) K/uL Baso # (Auto) 0.0 (0.0-0.1) K/uL Nucleated RBC % 0.0 /100WBC Nucleated RBCs # 0 K/uL Lactate 0.7 (0.20-2.00) mmol/L Sodium 139 (136-145) mmol/L Potassium 4.1 (3.5-5.1) mmol/L Chloride 104 (98-107) mmol/L Carbon Dioxide 25.5 (21.0-32.0) mmol/L BUN 24 H (7.0-18.0) mg/dL Creatinine 1.1 H (0.6-1.0) mg/dL Est Cr Clr Drug Dosing 48.73 mL/min Estimated GFR (MDRD) 50.2 ml/min Glucose 102 (74-106) mg/dL Calcium 8.8 (8.5-10.1) mg/dL Total Bilirubin 0.4 (0.2-1.0) mg/dL AST 19 (15-37) IU/L ALT 19 (14-63) IU/L Alkaline Phosphatase 85 (46-116) U/L Total Protein 7.3 (6.4-8.2) g/dL Albumin 3.6 (3.4-5.0) g/dL Globulin 3.7 (2.6-4.0) g/dL Albumin/Globulin Ratio 1.0 (0.9-1.6) 09/02/19 09/02/19 Range/Units 06:26 06:26 WBC 5.54 (4.0-11.0) K/uL RBC 4.57 (4.30-5.90) M/uL Hgb 12.6 (12.0-16.0) g/dL Hct 39.4 (36.0-46.0) % MCV 86.2 (80.0-98.0) fL MCH 27.6 (27.0-32.0) pg MCHC 32.0 (31.0-37.0) g/dL RDW Std Deviation 44.1 (28.0-62.0) fl RDW Coeff of Jamil 14 (11.0-15.0) % Plt Count 206 (150-400) K/uL MPV 9.70 (7.40-12.00) fL Neut % (Auto) 81.1 H (48.0-80.0) % Lymph % (Auto) 15.5 L (16.0-40.0) % [place] % (Auto) 3.4 (0.0-15.0) % Eos % (Auto) 0.0 (0.0-7.0) % Baso % (Auto) 0.0 (0.0-1.5) % Neut # (Auto) 4.5 (1.4-5.7) K/uL Lymph # (Auto) 0.9 (0.6-2.4) K/uL [place] # (Auto) 0.2 (0.0-0.8) K/uL Eos # (Auto) 0.0 (0.0-0.7) K/uL Baso # (Auto) 0.0 (0.0-0.1) K/uL Nucleated RBC % 0.0 /100WBC Nucleated RBCs # 0 K/uL Lactate (0.20-2.00) mmol/L Sodium 137 (136-145) mmol/L Potassium 4.9 (3.5-5.1) mmol/L Chloride 102 (98-107) mmol/L Carbon Dioxide 25.4 (21.0-32.0) mmol/L BUN 29 H (7.0-18.0) mg/dL Creatinine 1.2 H (0.6-1.0) mg/dL Est Cr Clr Drug Dosing 44.67 mL/min Estimated GFR (MDRD) 45.4 ml/min Glucose 190 H (74-106) mg/dL Calcium 9.4 (8.5-10.1) mg/dL Total Bilirubin (0.2-1.0) mg/dL AST (15-37) IU/L ALT (14-63) IU/L Alkaline Phosphatase (46-116) U/L Total Protein (6.4-8.2) g/dL Albumin (3.4-5.0) g/dL Globulin (2.6-4.0) g/dL Albumin/Globulin Ratio (0.9-1.6) Ryan Results Last 24 Hours: Microbiology 09/01/19 12:48 Anaerobic Blood Culture - Final Blood - Venous - Lab Draw Med Orders - Current: Current Medications Acetaminophen (Tylenol) 650 mg PO Q6H PRN PRN Reason: Pain Last Admin: 09/02/19 09:17 Dose: 650 mg Acyclovir (Zovirax) 400 mg PO TID [facility] Last Admin: 09/02/19 06:38 Dose: 400 mg Albuterol (Proventil Neb Soln) 2.5 mg NEB Q2H PRN PRN Reason: Shortness Of Breath/wheezing Albuterol/Ipratropium (Duoneb 3.0-0.5 Mg/3 Ml) 3 ml NEB Q4HRRT [facility] Last Admin: 09/02/19 06:46 Dose: 3 ml Azithromycin (Zithromax) 500 mg PO Q24H [facility] Last Admin: 09/01/19 16:03 Dose: 500 mg Benzonatate (Tessalon Perles) 100 mg PO Q4H PRN PRN Reason: Cough Last Admin: 09/02/19 01:43 Dose: 100 mg Docusate Sodium (Colace) 100 mg PO BID PRN PRN Reason: Constipation Escitalopram Oxalate (Lexapro) 20 mg PO DAILY [facility] Last Admin: 09/02/19 09:10 Dose: 20 mg Methylprednisolone Sodium Succinate (Solu-Medrol) 125 mg IV BID [facility] Last Admin: 09/02/19 09:12 Dose: 125 mg Ondansetron HCl (Zofran) 4 mg IVPUSH Q4H PRN PRN Reason: Nausea Oxybutynin Chloride (Oxybutynin) 5 mg PO BEDTIME [facility] Last Admin: 09/01/19 21:33 Dose: 5 mg Pantoprazole Sodium (Protonix) 40 mg PO ACBREAKFAST [facility] Last Admin: 09/02/19 06:38 Dose: 40 mg Budesonide/ (Formoterol Fumarate) 1 each INH BID [facility] Last Admin: 09/02/19 09:32 Dose: 1 each Umeclidinium [place] ([Incruse Ellipta) 1 each INH DAILY [facility] Last Admin: 09/02/19 09:32 Dose: 1 each Simvastatin (Zocor) 10 mg PO BEDTIME [facility] Last Admin: 09/01/19 21:33 Dose: 10 mg Sodium Chloride (Saline Flush) 2.5 ml FLUSH ASDIRECTED PRN PRN Reason: Keep Vein Open Sucralfate (Carafate) 1 gm PO QIDACANDBED [facility] Last Admin: 09/02/19 06:38 Dose: 1 gm Trimethoprim/Sulfamethoxazole (Septra Ds) 1 tab PO BID [facility] Last Admin: 09/02/19 09:10 Dose: 1 tab Discontinued Medications Acetaminophen (Tylenol) 650 mg PO Q4H PRN PRN Reason: Pain (Mild 1-3)/fever Last Admin: 09/01/19 16:09 Dose: 650 mg Albuterol/Ipratropium (Duoneb 3.0-0.5 Mg/3 Ml) 3 ml NEB ONETIME ONE Stop: 09/01/19 12:08 Last Admin: 09/01/19 12:34 Dose: 3 ml Albuterol/Ipratropium (Duoneb 3.0-0.5 Mg/3 Ml) Confirm Administered Dose 3 ml .ROUTE .STK-MED ONE Stop: 09/01/19 12:37 Last Admin: 09/01/19 12:43 Dose: Not Given Albuterol/Ipratropium (Duoneb 3.0-0.5 Mg/3 Ml) 3 ml NEB ONETIME ONE Stop: 09/01/19 12:41 Last Admin: 09/01/19 12:43 Dose: 3 ml Albuterol/Ipratropium (Duoneb 3.0-0.5 Mg/3 Ml) 3 ml NEB ONETIME ONE Stop: 09/01/19 14:09 Last Admin: 09/01/19 14:13 Dose: 3 ml Clonidine HCl (Catapres) 0.1 mg PO BID [facility] Last Admin: 09/01/19 21:31 Dose: 0.1 mg Magnesium Sulfate 2 gm/ Premix 50 mls @ 50 mls/hr IV ONETIME ONE Stop: 09/01/19 13:09 Last Admin: 09/01/19 12:40 Dose: 50 mls/hr Lisinopril (Prinivil) 10 mg PO DAILY [facility] Methylprednisolone Sodium Succinate (Solu-Medrol) 125 mg IV ONETIME ONE Stop: 09/01/19 12:08 Last Admin: 09/01/19 12:36 Dose: 125 mg - Exam General: Alert, Oriented, Cooperative, Mild Distress (dyspnea with talking) HEENT: Pupils Equal, Pupils Reactive Neck: Supple Lungs: Rhonchi, Wheezing. No: Normal Respiratory Effort (dyspnea) Cardiovascular: Regular Rate, Regular Rhythm GI/Abdominal Exam: Normal Bowel Sounds, Soft, Non-Tender Extremities: Normal Inspection, Normal Range of Motion, Non-Tender Wound/Incisions: Erythema Improving (R index finger) Neurological: No New Focal Deficit Psy/Mental Status: Alert, Normal Affect, Normal Mood Sepsis Event Note - Evaluation Sepsis Screening Result: No Definite Risk - Focused Exam Vital Signs: Vital Signs Temp Pulse Resp BP Pulse Ox 09/02/19 04:08 96.8 F L 84 20 116/68 90 L 09/01/19 23:23 97.3 F 67 22 H 104/53 L 91 L Date Exam was Performed: 09/02/19 Time Exam was Performed: 09:58 - Problem List & Annotations (1) COPD exacerbation SNOMED Code(s): 637797421 Code(s): J44.1 - CHRONIC OBSTRUCTIVE PULMONARY DISEASE W (ACUTE) EXACERBATION Status: Acute Current Visit: Yes (2) Anxiety SNOMED Code(s): 29220197 Code(s): F41.9 - ANXIETY DISORDER, UNSPECIFIED Status: Chronic Current Visit: No (3) COPD (chronic obstructive pulmonary disease) SNOMED Code(s): 05549701 Code(s): J44.9 - CHRONIC OBSTRUCTIVE PULMONARY DISEASE, UNSPECIFIED Status : Chronic Current Visit: No Qualifiers: COPD type: COPD with acute exacerbation Qualified Code(s): J44.1 - Chronic obstructive pulmonary disease with (acute) exacerbation (4) Depression SNOMED Code(s): 11484691 Code(s): F32.9 - MAJOR DEPRESSIVE DISORDER, SINGLE EPISODE, UNSPECIFIED Status: Chronic Current Visit: No Qualifiers: Depression Type: unspecified Qualified Code(s): F32.9 - Major depressive disorder, single episode, unspecified (5) ETOH abuse SNOMED Code(s): 79688147 Code(s): F10.10 - ALCOHOL ABUSE, UNCOMPLICATED Status: Chronic Current Visit: No (6) HTN (hypertension) SNOMED Code(s): 31974297 Code(s): I10 - ESSENTIAL (PRIMARY) HYPERTENSION Status: Chronic Current Visit: No Qualifiers: Hypertension type: essential hypertension Qualified Code(s): I10 - Essential (primary) hypertension (7) History of tobacco abuse SNOMED Code(s): 368705287, 826632019 Code(s): Z87.891 - PERSONAL HISTORY OF NICOTINE DEPENDENCE Status: Chronic Current Visit: No (8) Hx of hepatitis C SNOMED Code(s): 31707319706317, 97835272659823 Code(s): Z86.19 - PERSONAL HISTORY OF OTHER INFECTIOUS AND PARASITIC DISEASES Status: Chronic Current Visit: No (9) Oxygen dependent SNOMED Code(s): 033926696545 Code(s): Z99.81 - DEPENDENCE ON SUPPLEMENTAL OXYGEN Status: Chronic Current Visit: No - Problem List Review Problem List Initiated/Reviewed/Updated: Yes - My Orders Last 24 Hours: My Active Orders 09/01/19 15:00 Communication Order [RC] PRN Intake and Output [RC] Q12H May Shower [RC] ASDIRECTED Oxygen Therapy [RC] PRN Up With Assistance [RC] ASDIRECTED Up to Chair [RC] ASDIRECTED VTE/DVT Education [RC] Q12H Vital Signs [RC] Q4H Albuterol [Proventil Neb Soln] 2.5 mg NEB Q2H PRN Azithromycin [Zithromax] 500 mg PO Q24H Docusate Sodium [Colace] 100 mg PO BID PRN Ondansetron [Zofran] 4 mg IVPUSH Q4H PRN Sodium Chloride 0.9% [Saline Flush] 2.5 ml FLUSH ASDIRECTED PRN Saline Lock Insert [OM.PC] Routine Sequential Compression Device [OM.PC] Per Unit Routine Resuscitation Status Routine 09/01/19 15:01 Antiembolic Devices [RC] PER UNIT ROUTINE 09/01/19 15:03 RT Aerosol Therapy [RC] ASDIRECTED 09/01/19 15:07 RT Incentive Spirometry [RC] Q1HWA Consult to Respiratory Therapy [Respiratory Care Assess and Treatment] [CONS] Routine Acyclovir [Zovirax] 400 mg PO TID RT Flutter Valve Therapy [RT Acapella] [RESPCARE] Routine 09/01/19 15:15 Sulfamethoxazole/Trimethoprim [Septra DS] 1 tab PO BID 09/01/19 17:00 Sucralfate [Carafate] 1 gm PO QIDACANDBED 09/01/19 18:00 Albuterol/Ipratropium [DuoNeb 3.0-0.5 MG/3 ML] 3 ml NEB Q4HRRT 09/01/19 21:00 Oxybutynin 5 mg PO BEDTIME Patient's Own Medication [Ptom] 1 each INH BID Simvastatin [Zocor] 10 mg PO BEDTIME methylPREDNISolone Sod Succ [Solu-MEDROL] 125 mg IV BID 09/01/19 Lunch Regular Diet [DIET] 09/02/19 07:30 Pantoprazole [ProTONIX] 40 mg PO ACBREAKFAST 09/02/19 08:15 Consult to Home Health [CONS] Routine 09/02/19 09:00 Escitalopram [Lexapro] 20 mg PO DAILY Patient's Own Medication [Ptom] 1 each INH DAILY - Plan Plan:: This 64 year old female admitted for acute on chronic respiratory failure and COPD exacerbation 1. Acute on chronic respiratory failure - Slow improvement - Continue oxygen therapy 2 L NC per home use - IS, flutter valve - Duonebs scheduled and PRN 2. COPD exacerbation, slow improvement - Duonebs - Solumedrol TID - Respiratory consult - Continue home inhalers - Continue to recommend pulmonology outpatient evaluation - Azithromycin 500 mg PO daily 3. Oral/nasal herpes labialis - Acyclovir PO 4. R index abscess - Bactrim DS - Monitor labs in am - Warm compress PRN pain 5. HTN - Stable, continue home medications 6. Anxiety - Stable, continue home medications. Diet: Regular VTE prophylaxis: SCDs Code Status: Full Dispo: 2-3 days pending.
[2019-09-02] MEDS: Venlafaxine 75 MG Cap.ER PO SCH (12:30)
--- NOTE | 2019-09-02 13:43 | PCM.SN ---
- Free Text/Narrative Note: Bedside I/D to R index abscess patient positioned appropriately. Time out performed with patient, consent signed after risks of procedure discussed. No lidocaine used as abscess very minor. Skin cleansed with chlorhexidine used to cleanse skin. #11 blade scalpel used for single tiny incision 1/4 in, immediate purulent drainage, wound culture obtained. Further manipulation of abscess produce approximately 1/2 to 1 cc purulent drainage. Pain improved with I & D. Corner or sterile 2x2 inserted into incision and bandaid placed. Patient tolerated procedure well without complications. Dressing change PRN for drainage. Continue Bactrim. Monitor in am.
[2019-09-02] MEDS: cloNIDine 0.1 MG Tab PO SCH ×2 (14:25→22:00)
[2019-09-02] MEDS: Azithromycin 250 MG Tab PO SCH (14:25)
[2019-09-02] MEDS ORDERED: Ketorolac 30 MG/ML SDV IVPUSH ONE (14:53)
[2019-09-02] MEDS ORDERED: diphenhydrAMINE 50 MG/ML SDV IVPUSH ONE (14:53)
[2019-09-02] MEDS ORDERED: Metoclopramide 10 MG/2 ML SDV IVPUSH ONE (14:53)
[2019-09-02] MEDS: Simvastatin 10 MG Tab PO SCH (20:20)
[2019-09-02] MEDS: Oxybutynin 5 MG Tab PO SCH (21:40)
[2019-09-03] MEDS: Albuterol/Ipratropium 3.0-0.5 MG/3 ML Neb Soln NEB SCH ×6 (01:06→21:04)
[2019-09-03] MEDS: Benzonatate 100 MG Cap PO PRN ×2 (01:06→19:04)
[2019-09-03] MEDS: Acyclovir 200 MG Cap PO SCH ×3 (06:33→22:04)
[2019-09-03] MEDS: Pantoprazole 40 MG Tab.CR PO SCH (06:33)
[2019-09-03] MEDS: Sucralfate 1 GM Tab PO SCH ×4 (06:33→22:05)
[2019-09-03 06:39] LABS: CARBON DIOXIDE,CO2 25.7 mmol/L (21.0-32.0); POTASSIUM,K 4.9 mmol/L (3.5-5.1)
[2019-09-03] MEDS: Venlafaxine 75 MG Cap.ER PO SCH (08:35)
[2019-09-03] MEDS: Escitalopram 10 MG Tab PO SCH (08:36)
[2019-09-03] MEDS: cloNIDine 0.1 MG Tab PO SCH ×2 (08:36→22:15)
[2019-09-03] MEDS: methylPREDNISolone Sodium Succinate 125 MG/2 ML SDV IV SCH ×2 (08:36→22:03)
[2019-09-03] MEDS: Sulfamethoxazole/Trimethoprim 800-160 MG Tab PO SCH ×2 (08:37→22:05)
--- NOTE | 2019-09-03 09:01 | PCM.PN ---
- General Info Date of Service: 09/03/19 Admission Dx/Problem (Free Text): Admission Diagnosis/Problem Admission Diagnosis/Problem COPD, Severe chronic obstructive pulmonary disease Subjective Update: Feeling sob of breath still, little improvement. Feels like it is breaking up more and coughing more sputum up. Having a frontal headache, but much improved. No chest pain. Finger hurts, but is improving after I&D yesterday. Functional Status: Reports: Pain Controlled, Tolerating Diet, Ambulating, Urinating - Review of Systems HEENT: Reports: Headaches (improved). Denies: Sore Throat, Rhinitis Pulmonary: Reports: Shortness of Breath, Cough, Sputum, Wheezing Cardiovascular: Denies: Chest Pain Gastrointestinal: Denies: Abdominal Pain, Nausea, Vomiting Genitourinary: Reports: No Symptoms. Denies: Dysuria, Frequency, Burning Musculoskeletal: Reports: No Symptoms Skin: Reports: No Symptoms Neurological: Reports: No Symptoms Psychiatric: Reports: No Symptoms - Patient Data Vitals - Most Recent: Last Vital Signs Temp 97.8 F 09/03/19 04:00 Pulse 75 09/03/19 04:00 Resp 20 09/03/19 04:00 BP 131/78 09/03/19 08:36 Pulse Ox 92 L 09/03/19 04:00 Weight - Most Recent: 58.967 kg I&O - Last 24 Hours: Intake & Output 09/02/19 09/03/19 09/03/19 22:59 06:59 14:59 Intake Total 1000 500 Output Total 300 400 Balance 700 100 Lab Results Last 24 Hours: Laboratory Results - last 24 hr 09/03/19 09/03/19 Range/Units 06:19 06:19 WBC 17.01 H (4.0-11.0) K/uL RBC 4.53 (4.30-5.90) M/uL Hgb 12.4 (12.0-16.0) g/dL Hct 38.6 (36.0-46.0) % MCV 85.2 (80.0-98.0) fL MCH 27.4 (27.0-32.0) pg MCHC 32.1 (31.0-37.0) g/dL RDW Std Deviation 43.1 (28.0-62.0) fl RDW Coeff of Jamil 14 (11.0-15.0) % Plt Count 212 (150-400) K/uL MPV 9.50 (7.40-12.00) fL Neut % (Auto) 90.8 H (48.0-80.0) % Lymph % (Auto) 6.2 L (16.0-40.0) % [place] % (Auto) 2.9 (0.0-15.0) % Eos % (Auto) 0.0 (0.0-7.0) % Baso % (Auto) 0.1 (0.0-1.5) % Neut # (Auto) 15.4 H (1.4-5.7) K/uL Lymph # (Auto) 1.1 (0.6-2.4) K/uL [place] # (Auto) 0.5 (0.0-0.8) K/uL Eos # (Auto) 0.0 (0.0-0.7) K/uL Baso # (Auto) 0.0 (0.0-0.1) K/uL Nucleated RBC % 0.0 /100WBC Nucleated RBCs # 0 K/uL Sodium 137 (136-145) mmol/L Potassium 4.9 (3.5-5.1) mmol/L Chloride 102 (98-107) mmol/L Carbon Dioxide 25.7 (21.0-32.0) mmol/L BUN 33 H (7.0-18.0) mg/dL Creatinine 1.3 H (0.6-1.0) mg/dL Est Cr Clr Drug Dosing 41.23 mL/min Estimated GFR (MDRD) 41.4 ml/min Glucose 127 H (74-106) mg/dL Calcium 9.0 (8.5-10.1) mg/dL Ryan Results Last 24 Hours: Microbiology 09/01/19 12:48 Aerobic Blood Culture - Preliminary Blood - Venous - Lab Draw NO GROWTH AFTER 1 DAY Anaerobic Blood Culture - Final 09/01/19 12:28 Aerobic Blood Culture - Preliminary Blood - Venous NO GROWTH AFTER 1 DAY Anaerobic Blood Culture - Preliminary NO GROWTH AFTER 1 DAY Med Orders - Current: Current Medications Acetaminophen (Tylenol) 650 mg PO Q6H PRN PRN Reason: Pain Last Admin: 09/02/19 14:23 Dose: 650 mg Acyclovir (Zovirax) 400 mg PO TID [facility] Last Admin: 09/03/19 06:33 Dose: 400 mg Albuterol (Proventil Neb Soln) 2.5 mg NEB Q2H PRN PRN Reason: Shortness Of Breath/wheezing Albuterol/Ipratropium (Duoneb 3.0-0.5 Mg/3 Ml) 3 ml NEB Q4HRRT [facility] Last Admin: 09/03/19 05:08 Dose: 3 ml Azithromycin (Zithromax) 500 mg PO Q24H [facility] Last Admin: 09/02/19 14:25 Dose: 500 mg Benzonatate (Tessalon Perles) 100 mg PO Q4H PRN PRN Reason: Cough Last Admin: 09/03/19 01:06 Dose: 100 mg Clonidine HCl (Catapres) 0.1 mg PO Q12HR [facility] Last Admin: 09/03/19 08:36 Dose: 0.1 mg Docusate Sodium (Colace) 100 mg PO BID PRN PRN Reason: Constipation Escitalopram Oxalate (Lexapro) 20 mg PO DAILY [facility] Last Admin: 09/03/19 08:36 Dose: 20 mg Methylprednisolone Sodium Succinate (Solu-Medrol) 125 mg IV BID [facility] Last Admin: 09/03/19 08:36 Dose: 125 mg Ondansetron HCl (Zofran) 4 mg IVPUSH Q4H PRN PRN Reason: Nausea Oxybutynin Chloride (Oxybutynin) 5 mg PO BEDTIME [facility] Last Admin: 09/02/19 21:40 Dose: 5 mg Pantoprazole Sodium (Protonix) 40 mg PO ACBREAKFAST [facility] Last Admin: 09/03/19 06:33 Dose: 40 mg Budesonide/ (Formoterol Fumarate) 1 each INH BID [facility] Last Admin: 09/02/19 20:22 Dose: 1 each Umeclidinium [place] ([Incruse Ellipta) 1 each INH DAILY [facility] Last Admin: 09/02/19 09:32 Dose: 1 each Simvastatin (Zocor) 10 mg PO BEDTIME [facility] Last Admin: 09/02/19 20:20 Dose: 10 mg Sodium Chloride (Saline Flush) 2.5 ml FLUSH ASDIRECTED PRN PRN Reason: Keep Vein Open Sucralfate (Carafate) 1 gm PO QIDACANDBED [facility] Last Admin: 09/03/19 06:33 Dose: 1 gm Trimethoprim/Sulfamethoxazole (Septra Ds) 1 tab PO BID [facility] Last Admin: 09/03/19 08:37 Dose: 1 tab Venlafaxine HCl (Effexor Xr) 75 mg PO DAILY [facility] Last Admin: 09/03/19 08:35 Dose: 75 mg Discontinued Medications Acetaminophen (Tylenol) 650 mg PO Q4H PRN PRN Reason: Pain (Mild 1-3)/fever Last Admin: 09/01/19 16:09 Dose: 650 mg Albuterol/Ipratropium (Duoneb 3.0-0.5 Mg/3 Ml) 3 ml NEB ONETIME ONE Stop: 09/01/19 12:08 Last Admin: 09/01/19 12:34 Dose: 3 ml Albuterol/Ipratropium (Duoneb 3.0-0.5 Mg/3 Ml) Confirm Administered Dose 3 ml .ROUTE .STK-MED ONE Stop: 09/01/19 12:37 Last Admin: 09/01/19 12:43 Dose: Not Given Albuterol/Ipratropium (Duoneb 3.0-0.5 Mg/3 Ml) 3 ml NEB ONETIME ONE Stop: 09/01/19 12:41 Last Admin: 09/01/19 12:43 Dose: 3 ml Albuterol/Ipratropium (Duoneb 3.0-0.5 Mg/3 Ml) 3 ml NEB ONETIME ONE Stop: 09/01/19 14:09 Last Admin: 09/01/19 14:13 Dose: 3 ml Clonidine HCl (Catapres) 0.1 mg PO BID [facility] Last Admin: 09/01/19 21:31 Dose: 0.1 mg Diphenhydramine HCl (Benadryl) 25 mg IVPUSH ONETIME ONE Stop: 09/02/19 14:54 Last Admin: 09/02/19 15:10 Dose: 25 mg Magnesium Sulfate 2 gm/ Premix 50 mls @ 50 mls/hr IV ONETIME ONE Stop: 09/01/19 13:09 Last Admin: 09/01/19 12:40 Dose: 50 mls/hr Ketorolac Tromethamine (Toradol) 30 mg IVPUSH ONETIME ONE Stop: 09/02/19 14:54 Last Admin: 09/02/19 15:11 Dose: 30 mg Lisinopril (Prinivil) 10 mg PO DAILY [facility] Methylprednisolone Sodium Succinate (Solu-Medrol) 125 mg IV ONETIME ONE Stop: 09/01/19 12:08 Last Admin: 09/01/19 12:36 Dose: 125 mg Metoclopramide HCl (Reglan) 10 mg IVPUSH ONETIME ONE Stop: 09/02/19 14:54 Last Admin: 09/02/19 15:10 Dose: 10 mg - Exam Quality Assessment: Supplemental Oxygen, DVT Prophylaxis General: Alert, Oriented Lungs: Decreased Breath Sounds, Rhonchi, Wheezing Cardiovascular: Regular Rate, Regular Rhythm, No Murmurs GI/Abdominal Exam: Normal Bowel Sounds, Soft, Non-Tender, No Organomegaly Back Exam: Normal Inspection, Full Range of Motion Extremities: Normal Inspection, Normal Range of Motion, Non-Tender, No Pedal Edema Neurological: No New Focal Deficit Psy/Mental Status: Alert, Normal Affect, Normal Mood Sepsis Event Note - Evaluation Sepsis Screening Result: No Definite Risk - Focused Exam Vital Signs: Vital Signs Temp Pulse Resp BP BP Pulse Ox 09/03/19 08:36 131/78 09/03/19 04:00 97.8 F 75 20 120/69 92 L 09/03/19 00:00 97.2 F 84 19 121/77 91 L 09/02/19 21:41 101/57 L Date Exam was Performed: 09/03/19 Time Exam was Performed: 09:34 - Problem List & Annotations (1) COPD exacerbation SNOMED Code(s): 933647772 Code(s): J44.1 - CHRONIC OBSTRUCTIVE PULMONARY DISEASE W (ACUTE) EXACERBATION Status: Acute Current Visit: Yes (2) Anxiety SNOMED Code(s): 47406007 Code(s): F41.9 - ANXIETY DISORDER, UNSPECIFIED Status: Chronic Current Visit: No (3) COPD (chronic obstructive pulmonary disease) SNOMED Code(s): 58354504 Code(s): J44.9 - CHRONIC OBSTRUCTIVE PULMONARY DISEASE, UNSPECIFIED Status : Chronic Current Visit: No Qualifiers: COPD type: COPD with acute exacerbation Qualified Code(s): J44.1 - Chronic obstructive pulmonary disease with (acute) exacerbation (4) Depression SNOMED Code(s): 83024298 Code(s): F32.9 - MAJOR DEPRESSIVE DISORDER, SINGLE EPISODE, UNSPECIFIED Status: Chronic Current Visit: No Qualifiers: Depression Type: unspecified Qualified Code(s): F32.9 - Major depressive disorder, single episode, unspecified (5) ETOH abuse SNOMED Code(s): 90813807 Code(s): F10.10 - ALCOHOL ABUSE, UNCOMPLICATED Status: Chronic Current Visit: No (6) HTN (hypertension) SNOMED Code(s): 36556408 Code(s): I10 - ESSENTIAL (PRIMARY) HYPERTENSION Status: Chronic Current Visit: No Qualifiers: Hypertension type: essential hypertension Qualified Code(s): I10 - Essential (primary) hypertension (7) History of tobacco abuse SNOMED Code(s): 365319912, 860448843 Code(s): Z87.891 - PERSONAL HISTORY OF NICOTINE DEPENDENCE Status: Chronic Current Visit: No (8) Hx of hepatitis C SNOMED Code(s): 37952173467275, 13421729599972 Code(s): Z86.19 - PERSONAL HISTORY OF OTHER INFECTIOUS AND PARASITIC DISEASES Status: Chronic Current Visit: No (9) Oxygen dependent SNOMED Code(s): 945599433806 Code(s): Z99.81 - DEPENDENCE ON SUPPLEMENTAL OXYGEN Status: Chronic Current Visit: No - Problem List Review Problem List Initiated/Reviewed/Updated: Yes - My Orders Last 24 Hours: My Active Orders 09/02/19 08:15 Consult to Home Health [CONS] Routine 09/02/19 09:00 Escitalopram [Lexapro] 20 mg PO DAILY Patient's Own Medication [Ptom] 1 each INH DAILY 09/02/19 11:45 Venlafaxine [Effexor XR] 75 mg PO DAILY 09/02/19 12:00 CULTURE WOUND [RM] Routine 09/02/19 13:35 cloNIDine [Catapres] 0.1 mg PO Q12HR 09/04/19 05:11 BMP [BASIC METABOLIC PANEL,BMP] [CHEM] AM CBC WITH AUTO DIFF [HEME] AM - Plan Plan:: This 64 year old female admitted for acute on chronic respiratory failure and COPD exacerbation 1. Acute on chronic respiratory failure - Slow improvement, lung sounds clearing more and more ach day. Congestion loosing - Continue oxygen therapy 2 L NC per home use - IS, flutter valve - Duonebs scheduled and PRN 2. COPD exacerbation, slow improvement - Duonebs - Solumedrol BID, will decrease to 80 BID - Respiratory consult - Continue home inhalers - Continue to recommend pulmonology outpatient evaluation - Azithromycin 500 mg PO daily 3. Oral/nasal herpes labialis - Acyclovir PO 4. R index abscess - Bactrim DS - Monitor labs in am - Warm compress PRN pain - I&D yesterday, improving. Continue to monitor. wound culture pending. 5. HTN - slightly lower, will monitor and restart home medications 6. Anxiety - Stable, continue home medications. Diet: Regular VTE prophylaxis: SCDs Code Status: Full Dispo: 2-3 days pending.
[2019-09-03] MEDS: BUDESONIDE INH SCH ×2 (10:28→21:39)
[2019-09-03] MEDS: UMECLIDINIUM BROMIDE INH SCH (10:28)
[2019-09-03] MEDS: FORMOTEROL FUMARATE INH SCH ×2 (10:28→21:39)
[2019-09-03] MEDS ORDERED: Ketorolac 15 MG/ML SDV IVPUSH ONE (11:26)
[2019-09-03] MEDS: Azithromycin 250 MG Tab PO SCH (14:42)
[2019-09-03] MEDS: Oxybutynin 5 MG Tab PO SCH (22:07)
[2019-09-03] MEDS: Simvastatin 10 MG Tab PO SCH (22:08)
[2019-09-04] MEDS: Acetaminophen 325 MG Tab PO PRN ×2 (00:01→18:58)
[2019-09-04] MEDS: Albuterol/Ipratropium 3.0-0.5 MG/3 ML Neb Soln NEB SCH ×6 (02:14→21:18)
[2019-09-04 06:12] LABS: CARBON DIOXIDE,CO2 26.2 mmol/L (21.0-32.0); POTASSIUM,K 5.2 mmol/L (3.5-5.1)
[2019-09-04] MEDS: Acyclovir 200 MG Cap PO SCH ×3 (06:36→21:00)
[2019-09-04] MEDS: Sucralfate 1 GM Tab PO SCH ×4 (06:36→20:53)
[2019-09-04] MEDS: Pantoprazole 40 MG Tab.CR PO SCH (06:36)
[2019-09-04] MEDS: cloNIDine 0.1 MG Tab PO SCH ×2 (08:55→20:53)
[2019-09-04] MEDS: Venlafaxine 75 MG Cap.ER PO SCH (08:55)
[2019-09-04] MEDS: Sulfamethoxazole/Trimethoprim 800-160 MG Tab PO SCH ×2 (08:55→20:53)
[2019-09-04] MEDS: Escitalopram 10 MG Tab PO SCH (08:55)
[2019-09-04] MEDS: BUDESONIDE INH SCH ×2 (08:56→21:18)
[2019-09-04] MEDS: FORMOTEROL FUMARATE INH SCH ×2 (08:56→21:18)
[2019-09-04] MEDS: methylPREDNISolone Sodium Succinate 125 MG/2 ML SDV IV SCH (08:56)
[2019-09-04] MEDS: UMECLIDINIUM BROMIDE INH SCH (08:57)
--- NOTE | 2019-09-04 09:23 | PCM.PN ---
- General Info Date of Service: 09/04/19 Admission Dx/Problem (Free Text): Admission Diagnosis/Problem Admission Diagnosis/Problem COPD, Severe chronic obstructive pulmonary disease Subjective Update: Continues to improve, feeling better today but not quite ready to go home. Dyspnea improving. Encouraged to be up and moving. Finger improving as well. No chest pain. Productive sputum, improved and lessening. Feels like chest is more clear now. Functional Status: Reports: Pain Controlled - Review of Systems HEENT: Reports: No Symptoms Pulmonary: Reports: Shortness of Breath (improved), Cough, Sputum, Wheezing. Denies: Pleuritic Chest Pain Cardiovascular: Reports: No Symptoms. Denies: Chest Pain, Palpitations Gastrointestinal: Reports: No Symptoms. Denies: Abdominal Pain, Nausea, Vomiting Genitourinary: Reports: No Symptoms Musculoskeletal: Reports: No Symptoms Skin: Reports: Other (redness and pain to finger improving) Neurological: Reports: No Symptoms Psychiatric: Reports: No Symptoms - Patient Data Vitals - Most Recent: Last Vital Signs Temp 96.2 F L 09/04/19 04:28 Pulse 69 09/04/19 04:28 Resp 18 09/04/19 04:28 BP 124/70 09/04/19 08:55 Pulse Ox 92 L 09/04/19 04:28 Weight - Most Recent: 58.967 kg I&O - Last 24 Hours: Intake & Output 09/03/19 09/04/19 09/04/19 22:59 06:59 14:59 Intake Total 800 450 Output Total 800 450 Balance 0 0 Lab Results Last 24 Hours: Laboratory Results - last 24 hr 09/04/19 09/04/19 Range/Units 05:41 05:41 WBC 15.76 H (4.0-11.0) K/uL RBC 4.54 (4.30-5.90) M/uL Hgb 12.5 (12.0-16.0) g/dL Hct 39.0 (36.0-46.0) % MCV 85.9 (80.0-98.0) fL MCH 27.5 (27.0-32.0) pg MCHC 32.1 (31.0-37.0) g/dL RDW Std Deviation 43.7 (28.0-62.0) fl RDW Coeff of Jamil 14 (11.0-15.0) % Plt Count 203 (150-400) K/uL MPV 9.60 (7.40-12.00) fL Neut % (Auto) 92.0 H (48.0-80.0) % Lymph % (Auto) 5.8 L (16.0-40.0) % Daniels % (Auto) 2.2 (0.0-15.0) % Eos % (Auto) 0.0 (0.0-7.0) % Baso % (Auto) 0.0 (0.0-1.5) % Neut # (Auto) 14.5 H (1.4-5.7) K/uL Lymph # (Auto) 0.9 (0.6-2.4) K/uL Daniels # (Auto) 0.3 (0.0-0.8) K/uL Eos # (Auto) 0.0 (0.0-0.7) K/uL Baso # (Auto) 0.0 (0.0-0.1) K/uL Nucleated RBC % 0.0 /100WBC Nucleated RBCs # 0 K/uL Sodium 136 (136-145) mmol/L Potassium 5.2 H (3.5-5.1) mmol/L Chloride 102 (98-107) mmol/L Carbon Dioxide 26.2 (21.0-32.0) mmol/L BUN 35 H (7.0-18.0) mg/dL Creatinine 1.3 H (0.6-1.0) mg/dL Est Cr Clr Drug Dosing 41.23 mL/min Estimated GFR (MDRD) 41.4 ml/min Glucose 137 H (74-106) mg/dL Calcium 9.1 (8.5-10.1) mg/dL Ryan Results Last 24 Hours: Microbiology 09/02/19 12:00 Wound Culture - Final Finger, Right - Right Index (Mrsa) Staphylococcus Aureus 09/01/19 12:48 Aerobic Blood Culture - Preliminary Blood - Venous - Lab Draw NO GROWTH AFTER 2 DAYS Anaerobic Blood Culture - Final 09/01/19 12:28 Aerobic Blood Culture - Preliminary Blood - Venous NO GROWTH AFTER 2 DAYS Anaerobic Blood Culture - Preliminary NO GROWTH AFTER 2 DAYS Med Orders - Current: Current Medications Acetaminophen (Tylenol) 650 mg PO Q6H PRN PRN Reason: Pain Last Admin: 09/04/19 00:01 Dose: 650 mg Acyclovir (Zovirax) 400 mg PO TID [facility] Last Admin: 09/04/19 06:36 Dose: 400 mg Albuterol (Proventil Neb Soln) 2.5 mg NEB Q2H PRN PRN Reason: Shortness Of Breath/wheezing Albuterol/Ipratropium (Duoneb 3.0-0.5 Mg/3 Ml) 3 ml NEB Q4HRRT [facility] Last Admin: 09/04/19 06:25 Dose: 3 ml Azithromycin (Zithromax) 500 mg PO Q24H [facility] Last Admin: 09/03/19 14:42 Dose: 500 mg Benzonatate (Tessalon Perles) 100 mg PO Q4H PRN PRN Reason: Cough Last Admin: 09/03/19 19:04 Dose: 100 mg Clonidine HCl (Catapres) 0.1 mg PO Q12HR [facility] Last Admin: 09/04/19 08:55 Dose: 0.1 mg Docusate Sodium (Colace) 100 mg PO BID PRN PRN Reason: Constipation Escitalopram Oxalate (Lexapro) 20 mg PO DAILY [facility] Last Admin: 09/04/19 08:55 Dose: 20 mg Methylprednisolone Sodium Succinate (Solu-Medrol) 80 mg IV BID [facility] Last Admin: 09/04/19 08:56 Dose: 80 mg Ondansetron HCl (Zofran) 4 mg IVPUSH Q4H PRN PRN Reason: Nausea Oxybutynin Chloride (Oxybutynin) 5 mg PO BEDTIME [facility] Last Admin: 09/03/19 22:07 Dose: 5 mg Pantoprazole Sodium (Protonix) 40 mg PO ACBREAKFAST [facility] Last Admin: 09/04/19 06:36 Dose: 40 mg Budesonide/ (Formoterol Fumarate) 1 each INH BID [facility] Last Admin: 09/04/19 08:56 Dose: 1 each Umeclidinium [place] ([Incruse Ellipta) 1 each INH DAILY [facility] Last Admin: 09/04/19 08:57 Dose: 1 each Simvastatin (Zocor) 10 mg PO BEDTIME [facility] Last Admin: 09/03/19 22:08 Dose: 10 mg Sodium Chloride (Saline Flush) 2.5 ml FLUSH ASDIRECTED PRN PRN Reason: Keep Vein Open Sucralfate (Carafate) 1 gm PO QIDACANDBED [facility] Last Admin: 09/04/19 06:36 Dose: 1 gm Trimethoprim/Sulfamethoxazole (Septra Ds) 1 tab PO BID [facility] Last Admin: 09/04/19 08:55 Dose: 1 tab Venlafaxine HCl (Effexor Xr) 75 mg PO DAILY [facility] Last Admin: 09/04/19 08:55 Dose: 75 mg Discontinued Medications Acetaminophen (Tylenol) 650 mg PO Q4H PRN PRN Reason: Pain (Mild 1-3)/fever Last Admin: 09/01/19 16:09 Dose: 650 mg Albuterol/Ipratropium (Duoneb 3.0-0.5 Mg/3 Ml) 3 ml NEB ONETIME ONE Stop: 09/01/19 12:08 Last Admin: 09/01/19 12:34 Dose: 3 ml Albuterol/Ipratropium (Duoneb 3.0-0.5 Mg/3 Ml) Confirm Administered Dose 3 ml .ROUTE .STK-MED ONE Stop: 09/01/19 12:37 Last Admin: 09/01/19 12:43 Dose: Not Given Albuterol/Ipratropium (Duoneb 3.0-0.5 Mg/3 Ml) 3 ml NEB ONETIME ONE Stop: 09/01/19 12:41 Last Admin: 09/01/19 12:43 Dose: 3 ml Albuterol/Ipratropium (Duoneb 3.0-0.5 Mg/3 Ml) 3 ml NEB ONETIME ONE Stop: 09/01/19 14:09 Last Admin: 09/01/19 14:13 Dose: 3 ml Clonidine HCl (Catapres) 0.1 mg PO BID [facility] Last Admin: 09/01/19 21:31 Dose: 0.1 mg Diphenhydramine HCl (Benadryl) 25 mg IVPUSH ONETIME ONE Stop: 09/02/19 14:54 Last Admin: 09/02/19 15:10 Dose: 25 mg Magnesium Sulfate 2 gm/ Premix 50 mls @ 50 mls/hr IV ONETIME ONE Stop: 09/01/19 13:09 Last Admin: 09/01/19 12:40 Dose: 50 mls/hr Ketorolac Tromethamine (Toradol) 30 mg IVPUSH ONETIME ONE Stop: 09/02/19 14:54 Last Admin: 09/02/19 15:11 Dose: 30 mg Ketorolac Tromethamine (Toradol) 15 mg IVPUSH ONETIME ONE Stop: 09/03/19 11:27 Last Admin: 09/03/19 11:45 Dose: 15 mg Lisinopril (Prinivil) 10 mg PO DAILY [facility] Methylprednisolone Sodium Succinate (Solu-Medrol) 125 mg IV ONETIME ONE Stop: 09/01/19 12:08 Last Admin: 09/01/19 12:36 Dose: 125 mg Methylprednisolone Sodium Succinate (Solu-Medrol) 125 mg IV BID [facility] Last Admin: 09/03/19 08:36 Dose: 125 mg Metoclopramide HCl (Reglan) 10 mg IVPUSH ONETIME ONE Stop: 09/02/19 14:54 Last Admin: 09/02/19 15:10 Dose: 10 mg - Exam General: Alert, Oriented, Cooperative, No Acute Distress Lungs: Rhonchi (much improved, bibasilar), Wheezing. No: Normal Respiratory Effort (dyspnea, much improved. breathing appears more relaxed than previous days) Cardiovascular: Regular Rate, Regular Rhythm GI/Abdominal Exam: Normal Bowel Sounds, Soft, Non-Tender Extremities: Normal Inspection, Normal Range of Motion, Non-Tender, No Pedal Edema Neurological: No New Focal Deficit Psy/Mental Status: Alert, Normal Affect, Normal Mood Sepsis Event Note - Evaluation Sepsis Screening Result: No Definite Risk - Focused Exam Vital Signs: Vital Signs Temp Pulse Resp BP BP Pulse Ox 09/04/19 08:55 124/70 09/04/19 04:28 96.2 F L 69 18 131/77 92 L 09/03/19 22:15 128/60 09/03/19 22:00 86 128/60 Date Exam was Performed: 09/04/19 Time Exam was Performed: 09:28 - Problem List & Annotations (1) COPD exacerbation SNOMED Code(s): 152686870 Code(s): J44.1 - CHRONIC OBSTRUCTIVE PULMONARY DISEASE W (ACUTE) EXACERBATION Status: Acute Current Visit: Yes (2) Anxiety SNOMED Code(s): 39956098 Code(s): F41.9 - ANXIETY DISORDER, UNSPECIFIED Status: Chronic Current Visit: No (3) COPD (chronic obstructive pulmonary disease) SNOMED Code(s): 72306017 Code(s): J44.9 - CHRONIC OBSTRUCTIVE PULMONARY DISEASE, UNSPECIFIED Status : Chronic Current Visit: No Qualifiers: COPD type: COPD with acute exacerbation Qualified Code(s): J44.1 - Chronic obstructive pulmonary disease with (acute) exacerbation (4) Depression SNOMED Code(s): 56948451 Code(s): F32.9 - MAJOR DEPRESSIVE DISORDER, SINGLE EPISODE, UNSPECIFIED Status: Chronic Current Visit: No Qualifiers: Depression Type: unspecified Qualified Code(s): F32.9 - Major depressive disorder, single episode, unspecified (5) ETOH abuse SNOMED Code(s): 00428949 Code(s): F10.10 - ALCOHOL ABUSE, UNCOMPLICATED Status: Chronic Current Visit: No (6) HTN (hypertension) SNOMED Code(s): 44397283 Code(s): I10 - ESSENTIAL (PRIMARY) HYPERTENSION Status: Chronic Current Visit: No Qualifiers: Hypertension type: essential hypertension Qualified Code(s): I10 - Essential (primary) hypertension (7) History of tobacco abuse SNOMED Code(s): 425953260, 793408588 Code(s): Z87.891 - PERSONAL HISTORY OF NICOTINE DEPENDENCE Status: Chronic Current Visit: No (8) Hx of hepatitis C SNOMED Code(s): 64468791200074, 68080754142885 Code(s): Z86.19 - PERSONAL HISTORY OF OTHER INFECTIOUS AND PARASITIC DISEASES Status: Chronic Current Visit: No (9) Oxygen dependent SNOMED Code(s): 781262610987 Code(s): Z99.81 - DEPENDENCE ON SUPPLEMENTAL OXYGEN Status: Chronic Current Visit: No - Problem List Review Problem List Initiated/Reviewed/Updated: Yes - My Orders Last 24 Hours: My Active Orders 09/03/19 21:00 methylPREDNISolone Sod Succ [Solu-MEDROL] 80 mg IV BID 09/04/19 08:11 Isolation [COMM] Routine - Plan Plan:: This 64 year old female admitted for acute on chronic respiratory failure and COPD exacerbation 1. Acute on chronic respiratory failure - Good improvement overnight, lung sounds clearing more and more each day. Congestion loosing - Continue oxygen therapy 2 L NC per home use - IS, flutter valve - Duonebs scheduled and PRN 2. COPD exacerbation, slow improvement - Duonebs - Solumedrol 80 daily today - Respiratory consult - Continue home inhalers - Continue to recommend pulmonology outpatient evaluation - Azithromycin 500 mg PO daily 3. Oral/nasal herpes labialis - Acyclovir PO 4. R index abscess, MRSA positive - Continue Bactrim DS 5. HTN - slightly lower, will monitor and restart home medications 6. Anxiety - Stable, continue home medications. Diet: Regular VTE prophylaxis: SCDs Code Status: DNR/DNI- had long discussion regarding significant COPD and poor prognosis if needing ventilation. She decided after talk to be placed DNR/DNI. Dispo: 2-3 days pending.
[2019-09-04] MEDS ORDERED: Sodium Chloride 0.9% 1,000 ML IV ONE (09:30)
[2019-09-04] MEDS: Azithromycin 250 MG Tab PO SCH (15:59)
[2019-09-04] MEDS: Oxybutynin 5 MG Tab PO SCH (20:53)
[2019-09-04] MEDS: Simvastatin 10 MG Tab PO SCH (20:54)
[2019-09-05] MEDS: Benzonatate 100 MG Cap PO PRN (00:21)
[2019-09-05] MEDS: Albuterol/Ipratropium 3.0-0.5 MG/3 ML Neb Soln NEB SCH ×3 (02:52→09:28)
[2019-09-05] MEDS: Sucralfate 1 GM Tab PO SCH ×2 (06:29→11:36)
[2019-09-05] MEDS: Acyclovir 200 MG Cap PO SCH (06:29)
[2019-09-05] MEDS: Pantoprazole 40 MG Tab.CR PO SCH (06:29)
[2019-09-05 06:49] LABS: CARBON DIOXIDE,CO2 25.6 mmol/L (21.0-32.0); POTASSIUM,K 4.7 mmol/L (3.5-5.1)
[2019-09-05] MEDS ORDERED: methylPREDNISolone Sodium Succinate 125 MG/2 ML SDV IV SCH (09:00)
[2019-09-05] MEDS: Venlafaxine 75 MG Cap.ER PO SCH (09:22)
[2019-09-05] MEDS: Escitalopram 10 MG Tab PO SCH (09:22)
[2019-09-05] MEDS: cloNIDine 0.1 MG Tab PO SCH (09:22)
[2019-09-05] MEDS: Sulfamethoxazole/Trimethoprim 800-160 MG Tab PO SCH (09:22)
[2019-09-05] MEDS: FORMOTEROL FUMARATE INH SCH (09:28)
[2019-09-05] MEDS: UMECLIDINIUM BROMIDE INH SCH (09:28)
[2019-09-05] MEDS: BUDESONIDE INH SCH (09:28)
[2019-09-05] MEDS: Acetaminophen 325 MG Tab PO PRN (09:31)
[2019-09-05 11:41] VITALS: BP 138/80; PULSE 77
--- NOTE | 2019-09-05 13:19 | PCM.DCSUM1 ---
Discharge Summary - Hospital Course Free Text/Narrative:: This 64 year old female with pmh of oxygen dependent COPD, HTN, Hep C, anxiety and hx tobacco use presented to the ED with complaints of dyspnea and cough, she reports 4 days ago she noticed increased shortness of breath and productive cough with yellow sputum, which is a change for her. She reports she has been using inhalers as prescribed at home. Has not yet made it to see pulmonology yet. She denies fevers, reports temp of 99 yesterday. reports she has blisters in her nose and lips, reports history of cold sores. No sinus congestion or ear pain. No sore throat. No chest pain. No palpitations. No abdominal pain or Urinary concerns. Reports pain to R index had hang nail now swollen and painful to touch, no purulence noted. No focal neurological deficits. Former smoker, quit 5 years ago, rare social alcohol use, former heavy alcohol use, and no recreational drug use. In the ED no leukocytosis noted, BUN 24, Cr 1.1. CXR negative, showing emphysematous changes only. She was treated with Magnesium, Solumedrol and Duonebs. She continues to be dyspnea and has increased work of breathing. She will be admitted for acute on chronic respiratory failure, COPD exacerbation. Patient was started on IV steroids and IV azithromycin. Patient required high doses of steroids and regular DuoNebs through the stay. Eventfully patients COPD exacerbation resolved and she was back on 2L of 02 , felling much better. She did change priscilla code status to DNR/DNI, She did have a small abscess on her R index which was drained, culture grew MRSA, patient was started on Bactrim and recommended to fu with her PCP for further care. Patient is medially stable for dc today - Discharge Data Discharge Date: 09/05/19 Discharge Disposition: Home, Self-Care 01 Condition: Stable - Referral to Home Health Primary Care Physician: PCP None - Discharge Diagnosis/Problem(s) (1) MRSA cellulitis SNOMED Code(s): 571552977 ICD Code: L03.90 - CELLULITIS, UNSPECIFIED; B95.62 - METHICILLIN RESIS STAPH INFCT CAUSING DISEASES CLASSD ELSWHR Status: Acute Current Visit: Yes (2) COPD exacerbation SNOMED Code(s): 252395670 ICD Code: J44.1 - CHRONIC OBSTRUCTIVE PULMONARY DISEASE W (ACUTE) EXACERBATION Status: Acute Current Visit: Yes (3) Abscess SNOMED Code(s): 547971067 ICD Code: L02.91 - CUTANEOUS ABSCESS, UNSPECIFIED Status: Acute Current Visit: No Onset Date: 05/28/14 - Patient Summary/Data Consults: Consultations 09/01/19 15:07 Consult to Respiratory Therapy [Respiratory Care Assess and Treatment] [CONS] Routine 09/02/19 08:15 Consult to Home Health [CONS] Routine - Patient Instructions Wound/Incision Care: Keep Operative Site/Wound Site Clean and Dry Notify Provider of: Fever, Increased Pain, Swelling and Redness, Drainage, Nausea and/or Vomiting - Discharge Plan *PRESCRIPTION DRUG MONITORING PROGRAM REVIEWED*: Not Applicable *COPY OF PRESCRIPTION DRUG MONITORING REPORT IN PATIENT KARIE: Not Applicable Prescriptions/Med Rec: Acyclovir 400 mg PO TID #15 tablet predniSONE [Prednisone] 50 mg PO DAILY #5 tablet Sulfamethoxazole/Trimethoprim [Septra DS] 1 tab PO BID #10 tablet Home Medications: Home Meds Albuterol [Proventil HFA] 1 puff INH QID PRN 09/22/18 [History] Albuterol/Ipratropium [DuoNeb 3.0-0.5 MG/3 ML] 3 ml NEB Q8HR PRN 09/22/18 [ History] Budesonide/Formoterol Fumarate [Symbicort 80-4.5 MCG] 1 puff IH BID 09/22/18 [ History] Venlafaxine HCl [Venlafaxine ER] 75 mg PO DAILY 09/22/18 [History] cloNIDine [Catapres] 0.1 mg PO BID 09/22/18 [History] Umeclidinium [place] [Incruse Ellipta*] 1 puff DAILY 05/19/19 [History] Varenicline Tartrate [Chantix] 1 mg PO BID 05/19/19 [History] Albuterol Sulfate [Albuterol Sulfate Hfa] 2 puff INH ASDIRECTED PRN 08/06/19 [ History] Albuterol [Ventolin HFA] 2 puff INH ASDIRECTED PRN 08/06/19 [History] Escitalopram [Lexapro] 20 mg PO DAILY 08/06/19 [History] Lisinopril [Zestril] 10 mg PO DAILY 08/06/19 [History] Oxybutynin 5 mg PO BEDTIME 08/06/19 [History] Pantoprazole [ProTONIX] 40 mg PO ACBREAKFAST #30 tab.cr 08/08/19 [Rx] Sucralfate [Carafate] 1 gm PO QIDACANDBED #120 tablet 08/08/19 [Rx] Ibuprofen mg PO ASDIRECTED PRN 09/01/19 [History] Phenylephrine/Dm/Acetaminop/Gg [Mucinex Fast-Max Cold-Flu Liq] ml PO ASDIRECTED PRN 09/01/19 [History] Simvastatin [Zocor] 10 mg PO DAILY 09/01/19 [History] diphenhydrAMINE HCL [Diphenhydramine HCl] 25 mg PO BEDTIME 09/01/19 [History] Acyclovir 400 mg PO TID #15 tablet 09/05/19 [Rx] Sulfamethoxazole/Trimethoprim [Septra DS] 1 tab PO BID #10 tablet 09/05/19 [Rx] predniSONE [Prednisone] 50 mg PO DAILY #5 tablet 09/05/19 [Rx] Patient Handouts: Chronic Obstructive Pulmonary Disease Exacerbation, Easy-to- Read, Sulfamethoxazole; Trimethoprim, SMX-TMP tablets Referrals: Mandie Cantrell PA [Physician Product Technology Scientist] - 09/10/19 10:00 am - Discharge Summary/Plan Comment DC Time >30 min.: No - Patient Data Vitals - Most Recent: Last Vital Signs Temp 36.5 C 09/05/19 11:38 Pulse 77 09/05/19 11:38 Resp 22 H 09/05/19 11:38 BP 138/80 09/05/19 11:38 Pulse Ox 93 L 09/05/19 11:38 Weight - Most Recent: 58.967 kg I&O - Last 24 hours: Intake & Output 09/04/19 09/05/19 09/05/19 22:59 06:59 14:59 Intake Total 1225 640 Output Total 900 900 Balance 325 -260 Lab Results - Last 24 hrs: Laboratory Results - last 24 hr 09/05/19 09/05/19 Range/Units 06:10 06:10 WBC 15.68 H (4.0-11.0) K/uL RBC 4.80 (4.30-5.90) M/uL Hgb 13.2 (12.0-16.0) g/dL Hct 41.0 (36.0-46.0) % MCV 85.4 (80.0-98.0) fL MCH 27.5 (27.0-32.0) pg MCHC 32.2 (31.0-37.0) g/dL RDW Std Deviation 42.9 (28.0-62.0) fl RDW Coeff of Jamil 14 (11.0-15.0) % Plt Count 224 (150-400) K/uL MPV 9.50 (7.40-12.00) fL Neut % (Auto) 72.9 (48.0-80.0) % Lymph % (Auto) 17.1 (16.0-40.0) % Cass % (Auto) 9.9 (0.0-15.0) % Eos % (Auto) 0.0 (0.0-7.0) % Baso % (Auto) 0.1 (0.0-1.5) % Neut # (Auto) 11.4 H (1.4-5.7) K/uL Lymph # (Auto) 2.7 H (0.6-2.4) K/uL Cass # (Auto) 1.6 H (0.0-0.8) K/uL Eos # (Auto) 0.0 (0.0-0.7) K/uL Baso # (Auto) 0.0 (0.0-0.1) K/uL Nucleated RBC % 0.0 /100WBC Nucleated RBCs # 0 K/uL Sodium 135 L (136-145) mmol/L Potassium 4.7 (3.5-5.1) mmol/L Chloride 102 (98-107) mmol/L Carbon Dioxide 25.6 (21.0-32.0) mmol/L BUN 31 H (7.0-18.0) mg/dL Creatinine 1.1 H (0.6-1.0) mg/dL Est Cr Clr Drug Dosing 48.73 mL/min Estimated GFR (MDRD) 50.2 ml/min Glucose 93 (74-106) mg/dL Calcium 9.0 (8.5-10.1) mg/dL RYLEE Results - Last 24 hrs: Microbiology 09/01/19 12:48 Aerobic Blood Culture - Preliminary Blood - Venous - Lab Draw NO GROWTH AFTER 4 DAYS Anaerobic Blood Culture - Final 09/01/19 12:28 Aerobic Blood Culture - Preliminary Blood - Venous NO GROWTH AFTER 4 DAYS Anaerobic Blood Culture - Preliminary NO GROWTH AFTER 4 DAYS Med Orders - Current: Current Medications Acetaminophen (Tylenol) 650 mg PO Q6H PRN PRN Reason: Pain Last Admin: 09/05/19 09:31 Dose: 650 mg Acyclovir (Zovirax) 400 mg PO TID [facility] Last Admin: 09/05/19 06:29 Dose: 400 mg Albuterol (Proventil Neb Soln) 2.5 mg NEB Q2H PRN PRN Reason: Shortness Of Breath/wheezing Albuterol/Ipratropium (Duoneb 3.0-0.5 Mg/3 Ml) 3 ml NEB Q4HRRT [facility] Last Admin: 09/05/19 09:28 Dose: 3 ml Azithromycin (Zithromax) 500 mg PO Q24H [facility] Last Admin: 09/04/19 15:59 Dose: 500 mg Benzonatate (Tessalon Perles) 100 mg PO Q4H PRN PRN Reason: Cough Last Admin: 09/05/19 00:21 Dose: 100 mg Clonidine HCl (Catapres) 0.1 mg PO Q12HR [facility] Last Admin: 09/05/19 09:22 Dose: 0.1 mg Docusate Sodium (Colace) 100 mg PO BID PRN PRN Reason: Constipation Escitalopram Oxalate (Lexapro) 20 mg PO DAILY [facility] Last Admin: 09/05/19 09:22 Dose: 20 mg Methylprednisolone Sodium Succinate (Solu-Medrol) 80 mg IV DAILY [facility] Last Admin: 09/05/19 09:23 Dose: 80 mg Ondansetron HCl (Zofran) 4 mg IVPUSH Q4H PRN PRN Reason: Nausea Oxybutynin Chloride (Oxybutynin) 5 mg PO BEDTIME [facility] Last Admin: 09/04/19 20:53 Dose: 5 mg Pantoprazole Sodium (Protonix) 40 mg PO ACBREAKFAST [facility] Last Admin: 09/05/19 06:29 Dose: 40 mg Budesonide/ (Formoterol Fumarate) 1 each INH BID [facility] Last Admin: 09/05/19 09:28 Dose: 1 each Umeclidinium [place] ([Incruse Ellipta) 1 each INH DAILY [facility] Last Admin: 09/05/19 09:28 Dose: 1 each Simvastatin (Zocor) 10 mg PO BEDTIME [facility] Last Admin: 09/04/19 20:54 Dose: 10 mg Sodium Chloride (Saline Flush) 2.5 ml FLUSH ASDIRECTED PRN PRN Reason: Keep Vein Open Sucralfate (Carafate) 1 gm PO QIDACANDBED [facility] Last Admin: 09/05/19 11:36 Dose: 1 gm Trimethoprim/Sulfamethoxazole (Septra Ds) 1 tab PO BID [facility] Last Admin: 09/05/19 09:22 Dose: 1 tab Venlafaxine HCl (Effexor Xr) 75 mg PO DAILY [facility] Last Admin: 09/05/19 09:22 Dose: 75 mg Discontinued Medications Acetaminophen (Tylenol) 650 mg PO Q4H PRN PRN Reason: Pain (Mild 1-3)/fever Last Admin: 09/01/19 16:09 Dose: 650 mg Albuterol/Ipratropium (Duoneb 3.0-0.5 Mg/3 Ml) 3 ml NEB ONETIME ONE Stop: 09/01/19 12:08 Last Admin: 09/01/19 12:34 Dose: 3 ml Albuterol/Ipratropium (Duoneb 3.0-0.5 Mg/3 Ml) Confirm Administered Dose 3 ml .ROUTE .STK-MED ONE Stop: 09/01/19 12:37 Last Admin: 09/01/19 12:43 Dose: Not Given Albuterol/Ipratropium (Duoneb 3.0-0.5 Mg/3 Ml) 3 ml NEB ONETIME ONE Stop: 09/01/19 12:41 Last Admin: 09/01/19 12:43 Dose: 3 ml Albuterol/Ipratropium (Duoneb 3.0-0.5 Mg/3 Ml) 3 ml NEB ONETIME ONE Stop: 09/01/19 14:09 Last Admin: 09/01/19 14:13 Dose: 3 ml Clonidine HCl (Catapres) 0.1 mg PO BID [facility] Last Admin: 09/01/19 21:31 Dose: 0.1 mg Diphenhydramine HCl (Benadryl) 25 mg IVPUSH ONETIME ONE Stop: 09/02/19 14:54 Last Admin: 09/02/19 15:10 Dose: 25 mg Magnesium Sulfate 2 gm/ Premix 50 mls @ 50 mls/hr IV ONETIME ONE Stop: 09/01/19 13:09 Last Admin: 09/01/19 12:40 Dose: 50 mls/hr Sodium Chloride (Normal Saline) 1,000 mls @ 125 mls/hr IV ONETIME ONE Stop: 09/04/19 17:29 Last Admin: 09/04/19 10:31 Dose: 125 mls/hr Ketorolac Tromethamine (Toradol) 30 mg IVPUSH ONETIME ONE Stop: 09/02/19 14:54 Last Admin: 09/02/19 15:11 Dose: 30 mg Ketorolac Tromethamine (Toradol) 15 mg IVPUSH ONETIME ONE Stop: 09/03/19 11:27 Last Admin: 09/03/19 11:45 Dose: 15 mg Lisinopril (Prinivil) 10 mg PO DAILY [facility] Methylprednisolone Sodium Succinate (Solu-Medrol) 125 mg IV ONETIME ONE Stop: 09/01/19 12:08 Last Admin: 09/01/19 12:36 Dose: 125 mg Methylprednisolone Sodium Succinate (Solu-Medrol) 125 mg IV BID [facility] Last Admin: 09/03/19 08:36 Dose: 125 mg Methylprednisolone Sodium Succinate (Solu-Medrol) 80 mg IV BID [facility] Last Admin: 09/04/19 08:56 Dose: 80 mg Metoclopramide HCl (Reglan) 10 mg IVPUSH ONETIME ONE Stop: 09/02/19 14:54 Last Admin: 09/02/19 15:10 Dose: 10 mg
[2019-09-05] MEDS: Azithromycin 250 MG Tab PO SCH (13:25)
== END 2019-09-05 13:35 | disposition home health service (06) | DRG 189 ==
LOC: MW.ED 11:50 → MW.MS 13:54 → EEVIPCON 13:54
PROVIDERS: ADMIT Student in an Organized Health Care Education/Training Program; ATTEND Student in an Organized Health Care Education/Training Program
PROC: 0H9FXZZ Drainage of Right Hand Skin, External Approach (ICD-10-PCS; principal; 2019-09-02)
DX: J96.21 Acute and chronic respiratory failure with hypoxia (principal); L02.511 Cutaneous abscess of right hand; J44.1 Chronic obstructive pulmonary disease with (acute) exacerbation; Z66 Do not resuscitate; R06.00 Dyspnea, unspecified; J43.8 Other emphysema; B00.1 Herpesviral vesicular dermatitis; B95.62 Methicillin resistant Staphylococcus aureus infection as the cause of diseases classified elsewhere; I10 Essential (primary) hypertension; K57.90 Diverticulosis of intestine, part unspecified, without perforation or abscess without bleeding; Z87.891 Personal history of nicotine dependence; Z87.442 Personal history of urinary calculi; F32.9 Major depressive disorder, single episode, unspecified; F41.9 Anxiety disorder, unspecified; Z86.19 Personal history of other infectious and parasitic diseases; Z79.899 Other long term (current) drug therapy; Z99.81 Dependence on supplemental oxygen
CPT/HCPCS: 36415; 71045; 80053; 83605; 85025; 87040 ×2; 96365; 96375; 99285; J2930; J3475; 80048; 87070; 87077; 87186; 94640; 94668; 99284; A9270-GY; J1200; J1885; J2765; J7030; J7620-GY

== ENCOUNTER 2019-10-17 16:20 | Inpatient (IN) | payer MEDICARE, MEDICAID ==
[2019-10-17] MEDS ORDERED: Sodium Chloride 0.9% 2.5 ML Syringe FLUSH PRN ×2 (16:28)
[2019-10-17] MEDS ORDERED: Sodium Chloride 0.9% 1,000 ML IV ONE (16:28)
[2019-10-17] MEDS ORDERED: Sodium Chloride 0.9% 10 ML Syringe FLUSH PRN (16:28)
[2019-10-17] MEDS ORDERED: Ketorolac 30 MG/ML SDV IVPUSH ONE (16:37)
--- NOTE | 2019-10-17 16:37 | EDM.PDOC ---
ED HPI GENERAL MEDICAL PROBLEM - General Chief Complaint: Chest Pain Stated Complaint: RIGHT SIDE RIB CAGE PAIN/DIFFICULTY BREATHING Time Seen by Provider: 10/17/19 16:37 Source of Information: Reports: Patient History Limitations: Reports: No Limitations - History of Present Illness INITIAL COMMENTS - FREE TEXT/NARRATIVE: HISTORY AND PHYSICAL: History of present illness: Patient is a 64-year-old female with history of hepatitis C, COPD, hypertension , alcohol abuse, and GERD presents to the ED with complaint of right sided chest pain. Patient states she woke up this morning feeling sore below her right breast and on her right chest wall. She states she took a nap this afternoon and woke up with worsening pain. Patient denies any new or worsening cough or shortness of breath but states it is difficult to take a deep breath secondary to the pain. She reports some nausea, denies vomiting, diarrhea, abdominal pain, back or flank pain, fevers, chills, dysuria, hematuria, hemoptysis, calf pain. Review of systems: As per history of present illness and below otherwise all systems reviewed and negative. Past medical history: As per history of present illness and as reviewed below otherwise noncontributory. Surgical history: As per history of present illness and as reviewed below otherwise noncontributory. Social history: No reported history of drug or alcohol abuse. Family history: As per history of present illness and as reviewed below otherwise noncontributory. Physical exam: General: Patient sitting comfortably in no acute distress and nontoxic appearing HEENT: Atraumatic, normocephalic, pupils reactive, negative for conjunctival pallor or scleral icterus, mucous membranes moist, throat clear, neck supple, nontender, trachea midline. No meningeal signs. Lungs: Clear to auscultation, breath sounds equal bilaterally, Right anterior chest wall tenderness to palpation. Heart: S1S2, regular, negative for clicks, rubs, or overt murmur. Abdomen: Soft, nondistended. RUQ and epigastric tenderness to palpation. Negative for masses or hepatosplenomegaly. Negative for costovertebral tenderness. No rigidity, rebound, guarding. Pelvis: Stable nontender. Genitourinary: Deferred. Rectal: Deferred. Extremities: Atraumatic, negative for cords or calf pain. Neurovascular unremarkable. Neuro: Awake, alert, oriented. Cranial nerves II through XII unremarkable. Cerebellum unremarkable. Motor and sensory unremarkable throughout. Exam nonfocal. Notes: Diagnostics: CBC, CMP, troponin, EKG, right ribs with chest x-ray, blood culture x2 Therapeutics: 1L NS IV 30mg Toradol IV Zosyn IV Prescriptions: Impression: Pneumonia Plan: Discussed with Dr. Young, patient will be admitted to observation for IV antibiotics Definitive disposition and diagnosis as appropriate pending reevaluation and review of above. right ribs Pain Score (Numeric/FACES): 8 - Related Data Allergies Allergy/AdvReac Type Severity Reaction Status Date / Time No Known Allergies Allergy Verified 10/17/19 16:52 Home Meds: Home Meds Albuterol [Proventil HFA] 1 puff INH QID PRN 09/22/18 [History] Albuterol/Ipratropium [DuoNeb 3.0-0.5 MG/3 ML] 3 ml NEB Q8HR PRN 09/22/18 [ History] Budesonide/Formoterol Fumarate [Symbicort 80-4.5 MCG] 1 puff IH BID 09/22/18 [ History] Venlafaxine HCl [Venlafaxine ER] 75 mg PO DAILY 09/22/18 [History] cloNIDine [Catapres] 0.1 mg PO BID 09/22/18 [History] Umeclidinium Flom [Incruse Ellipta*] 1 puff DAILY 05/19/19 [History] Varenicline Tartrate [Chantix] 1 mg PO BID 05/19/19 [History] Albuterol Sulfate [Albuterol Sulfate Hfa] 2 puff INH ASDIRECTED PRN 08/06/19 [ History] Albuterol [Ventolin HFA] 2 puff INH ASDIRECTED PRN 08/06/19 [History] Escitalopram [Lexapro] 20 mg PO DAILY 08/06/19 [History] Oxybutynin 5 mg PO BEDTIME 08/06/19 [History] lisinopriL [Zestril] 10 mg PO DAILY 08/06/19 [History] Sucralfate [Carafate] 1 gm PO QIDACANDBED #120 tablet 08/08/19 [Rx] Ibuprofen mg PO ASDIRECTED PRN 09/01/19 [History] Phenylephrine/Dm/Acetaminop/Gg [Mucinex Fast-Max Cold-Flu Liq] ml PO ASDIRECTED PRN 09/01/19 [History] Simvastatin [Zocor] 10 mg PO DAILY 09/01/19 [History] diphenhydrAMINE HCL [Diphenhydramine HCl] 25 mg PO BEDTIME 09/01/19 [History] Past Medical History - Past Health History Medical/Surgical History: Denies Medical/Surgical History HEENT History: Reports: None Cardiovascular History: Reports: Hypertension Respiratory History: Reports: COPD, Other (See Below) Other Respiratory History: Home O2 @ 2LPM Gastrointestinal History: Reports: Diverticulosis Genitourinary History: Reports: Other (See Below) Other Genitourinary History: kidney stones [employer] History: Reports: None Musculoskeletal History: Reports: None Neurological History: Reports: None Psychiatric History: Reports: Addiction, Anxiety, Depression Endocrine/Metabolic History: Reports: None Hematologic History: Reports: None Immunologic History: Reports: None Oncologic (Cancer) History: Reports: None Dermatologic History: Reports: None - Infectious Disease History Infectious Disease History: Reports: Hepatitis C Other Infectious Disease History: unsure of which kind of hepatitis - Past Surgical History Head Surgeries/Procedures: Reports: None HEENT Surgical History: Reports: None Cardiovascular Surgical History: Reports: None Respiratory Surgical History: Reports: None GI Surgical History: Reports: Appendectomy Female Surgical History: Reports: None Endocrine Surgical History: Reports: None Neurological Surgical History: Reports: None Musculoskeletal Surgical History: Reports: Other (See Below) Other Musculoskeletal Surgeries/Procedures:: rt shoulder surg Oncologic Surgical History: Reports: None Dermatological Surgical History: Reports: None Social & Family History - Family History Family Medical History: Noncontributory Respiratory: Reports: Asthma, COPD : Reports: Renal Disease/Insufficiency Psychiatric: Reports: Anxiety, Depression Endocrine/Metabolic: Reports: Diabetes, type II Oncologic: Reports: Hodgkin's Lymphoma - Caffeine Use Caffeine Use: Reports: Coffee, Soda Caffeine Use Comment: 5 cups avg per day - Living Situation & Occupation Living situation: Reports: Single ED ROS GENERAL - Review of Systems Review Of Systems: Comprehensive ROS is negative, except as noted in HPI. ED EXAM, GENERAL - Physical Exam Exam: See Below (see dictation) Course - Vital Signs Last Recorded V/S: Last Vital Signs Temp 97.1 F 10/17/19 16:56 Pulse 101 H 10/17/19 16:56 Resp 22 H 10/17/19 16:56 BP 149/95 H 10/17/19 16:56 Pulse Ox 97 10/17/19 16:56 - Orders/Labs/Meds Orders: Active Orders 24 hr Category Date Time Status Admission Status [Patient Status] [ADT] Stat ADT 10/17/19 17:56 Ordered EKG Documentation Completion [RC] STAT Care 10/17/19 16:28 Active CORONAVIRUS COVID-19 PCR PHL Stat Lab 10/17/19 17:57 Ordered CULTURE BLOOD [BC] Stat Lab 10/17/19 17:55 Ordered CULTURE BLOOD [BC] Stat Lab 10/17/19 17:55 Ordered Sodium Chloride 0.9% [Saline Flush] Med 10/17/19 16:28 Active 10 ml FLUSH ASDIRECTED PRN Sodium Chloride 0.9% [Saline Flush] Med 10/17/19 16:28 Active 2.5 ml FLUSH ASDIRECTED PRN Sodium Chloride 0.9% [Saline Flush] Med 10/17/19 16:28 Active 2.5 ml FLUSH ASDIRECTED PRN Blood Culture x2 Reflex Set [OM.PC] Stat Oth 10/17/19 17:55 Ordered Saline Lock Insert [OM.PC] Stat Ot 10/17/19 16:28 Ordered Medication Orders Sodium Chloride (Saline Flush) 2.5 ml FLUSH ASDIRECTED PRN PRN Reason: Keep Vein Open Sodium Chloride (Saline Flush) 10 ml FLUSH ASDIRECTED PRN PRN Reason: Keep Vein Open Sodium Chloride (Saline Flush) 2.5 ml FLUSH ASDIRECTED PRN PRN Reason: Keep Vein Open Labs: Laboratory Tests 10/17/19 10/17/19 10/17/19 Range/Units 16:35 16:35 16:35 WBC 17.45 H (4.0-11.0) K/uL RBC 4.98 (4.30-5.90) M/uL Hgb 14.3 (12.0-16.0) g/dL Hct 44.0 (36.0-46.0) % MCV 88.4 (80.0-98.0) fL MCH 28.7 (27.0-32.0) pg MCHC 32.5 (31.0-37.0) g/dL RDW Std Deviation 47.2 (28.0-62.0) fl RDW Coeff of Jamil 15 (11.0-15.0) % Plt Count 275 (150-400) K/uL MPV 10.30 (7.40-12.00) fL Neut % (Auto) 74.9 (48.0-80.0) % Lymph % (Auto) 14.2 L (16.0-40.0) % [place] % (Auto) 9.3 (0.0-15.0) % Eos % (Auto) 1.4 (0.0-7.0) % Baso % (Auto) 0.2 (0.0-1.5) % Neut # (Auto) 13.1 H (1.4-5.7) K/uL Lymph # (Auto) 2.5 H (0.6-2.4) K/uL [place] # (Auto) 1.6 H (0.0-0.8) K/uL Eos # (Auto) 0.3 (0.0-0.7) K/uL Baso # (Auto) 0.0 (0.0-0.1) K/uL Nucleated RBC % 0.0 /100WBC Nucleated RBCs # 0 K/uL INR 1.00 Sodium 136 (136-145) mmol/L Potassium 4.3 (3.5-5.1) mmol/L Chloride 99 (98-107) mmol/L Carbon Dioxide 26.2 (21.0-32.0) mmol/L BUN 24 H (7.0-18.0) mg/dL Creatinine 1.2 H (0.6-1.0) mg/dL Est Cr Clr Drug Dosing 48.10 mL/min Estimated GFR (MDRD) 45.4 ml/min Glucose 92 (74-106) mg/dL Calcium 9.9 (8.5-10.1) mg/dL Total Bilirubin 0.4 (0.2-1.0) mg/dL AST 25 (15-37) IU/L ALT 15 (14-63) IU/L Alkaline Phosphatase 89 (46-116) U/L Troponin I < 0.050 (0.000-0.056) ng/mL Total Protein 8.4 H (6.4-8.2) g/dL Albumin 3.7 (3.4-5.0) g/dL Globulin 4.7 H (2.6-4.0) g/dL Albumin/Globulin Ratio 0.8 L (0.9-1.6) Meds: Medications Generic Name Dose Route Start Last Admin Trade Name Tristanq PRN Reason Stop Dose Admin Sodium Chloride 2.5 ml 10/17/19 16:28 Saline Flush FLUSH ASDIRECTED PRN Keep Vein Open Sodium Chloride 10 ml 10/17/19 16:28 Saline Flush FLUSH ASDIRECTED PRN Keep Vein Open Sodium Chloride 2.5 ml 10/17/19 16:28 Saline Flush FLUSH ASDIRECTED PRN Keep Vein Open Discontinued Medications Generic Name Dose Route Start Last Admin Trade Name Freq PRN Reason Stop Dose Admin Sodium Chloride 1,000 mls @ 999 mls/hr 10/17/19 16:28 10/17/19 16:42 Normal Saline IV 10/17/19 17:28 999 mls/hr BOLUS ONE Administration Piperacillin Sod/Tazobactam 50 mls @ 100 mls/hr 10/17/19 17:30 10/17/19 17:48 Sod 3.375 gm/ Sodium Chloride IV 10/17/19 17:59 100 mls/hr ONETIME ONE Administration Ketorolac Tromethamine 30 mg 10/17/19 16:37 10/17/19 16:40 Toradol IVPUSH 10/17/19 16:38 30 mg ONETIME ONE Administration Departure - Departure Time of Disposition: 18:01 Disposition: Refer to Observation Condition: Good Clinical Impression: Pneumonia - Discharge Information Forms: ED Department Discharge Sepsis Event Note - Focused Exam Vital Signs: Vital Signs Temp Pulse Resp BP Pulse Ox 10/17/19 16:56 97.1 F 101 H 22 H 149/95 H 97 Date Exam was Performed: 10/17/19 Time Exam was Performed: 17:59 - My Orders Last 24 Hours: My Active Orders 10/17/19 16:28 EKG Documentation Completion [RC] STAT Sodium Chloride 0.9% [Saline Flush] 10 ml FLUSH ASDIRECTED PRN Sodium Chloride 0.9% [Saline Flush] 2.5 ml FLUSH ASDIRECTED PRN Sodium Chloride 0.9% [Saline Flush] 2.5 ml FLUSH ASDIRECTED PRN Saline Lock Insert [OM.PC] Stat 10/17/19 17:55 CULTURE BLOOD [BC] Stat CULTURE BLOOD [BC] Stat Blood Culture x2 Reflex Set [OM.PC] Stat 10/17/19 17:56 Admission Status [Patient Status] [ADT] Stat - Assessment/Plan Last 24 Hours: My Active Orders 10/17/19 16:28 EKG Documentation Completion [RC] STAT Sodium Chloride 0.9% [Saline Flush] 10 ml FLUSH ASDIRECTED PRN Sodium Chloride 0.9% [Saline Flush] 2.5 ml FLUSH ASDIRECTED PRN Sodium Chloride 0.9% [Saline Flush] 2.5 ml FLUSH ASDIRECTED PRN Saline Lock Insert [OM.PC] Stat 10/17/19 17:55 CULTURE BLOOD [BC] Stat CULTURE BLOOD [BC] Stat Blood Culture x2 Reflex Set [OM.PC] Stat 10/17/19 17:56 Admission Status [Patient Status] [ADT] Stat
[2019-10-17 17:21] LABS: BLOOD UREA NITROGEN,BUN 24 mg/dL (7.0-18.0); CARBON DIOXIDE,CO2 26.2 mmol/L (21.0-32.0); CHLORIDE,CL 99 mmol/L (98-107); GLUCOSE RANDOM 92 mg/dL (74-106); POTASSIUM,K 4.3 mmol/L (3.5-5.1); SODIUM,NA 136 mmol/L (136-145)
[2019-10-17] MEDS ORDERED: Piperacillin/Tazobactam 3.375 GM in Sodium Chloride 0.9% 50 ML IV ONE (17:30)
--- NOTE | 2019-10-17 17:37 | CR ---
Chest and right ribs: Frontal view of the chest was obtained as well as additional 4 views of the right ribs. Comparison: Prior chest x-ray of 09/01/19. Increased density is noted within the right upper lung abutting the minor fissure. This is an interval change from previous study and most likely represents pneumonia. Lungs otherwise are clear. Heart size and mediastinum are normal. No discrete right-sided rib abnormality is appreciated. Impression: 1. Increased density within the right upper lung which is an interval change from previous study and most likely represents pneumonia. 2. No other acute abnormality is appreciated on chest and right rib exam. Diagnostic code #3 This report was dictated in MDT
--- NOTE | 2019-10-17 18:36 | PCM.HP.2 ---
<Liv Austin - Last Filed: 10/17/19 18:59> H&P History of Present Illness - General Date of Service: 10/17/19 Admit Problem/Dx: Admission Diagnosis/Problem Admission Diagnosis/Problem Pneumonia - History of Present Illness Initial Comments - Free Text/Narative: The patient is a 64 year old female with past medical history of oxygen dependant COPD, HTN, GERD, and treated Hep C who presented to the ER with right sided chest pain. Reports symptoms started last Sunday with headache but the chest pain hit her this afternoon. Pain is sharp and worse with deep breaths, no radiation. She reports associated shortness of breath, cough, body aches and fever/chills. She lost one of her inhalers, she is unsure which one, so she hasn't had it for the past few days. Was admitted in August 2019 for COPD exacerbation and treated with steroids and antibiotics. In the ER, labs revealed leukocytosis of 17, no anemia, elevated BUN/Cr of 24/ 1.2 (her baseline based previous labs), negative troponin. CXR showed right upper lung density consistent with pneumonia. In the ER her vitals were stable and she was at her baseline oxygen requirement of 2L. She was given Zosyn, IVF, and Toradol in the ER. PCP- Yina. right ribs Pain Score (Numeric/FACES): 8 - Related Data Allergies/Adverse Reactions: Allergies Allergy/AdvReac Type Severity Reaction Status Date / Time No Known Allergies Allergy Verified 10/17/19 20:03 Home Medications: Home Meds Albuterol [Proventil HFA] 1 puff INH QID PRN 09/22/18 [History] Albuterol/Ipratropium [DuoNeb 3.0-0.5 MG/3 ML] 3 ml NEB Q8HR PRN 09/22/18 [ History] Budesonide/Formoterol Fumarate [Symbicort 80-4.5 MCG] 1 puff IH BID 09/22/18 [ History] Venlafaxine HCl [Venlafaxine ER] 75 mg PO DAILY 09/22/18 [History] cloNIDine [Catapres] 0.1 mg PO BID 09/22/18 [History] Umeclidinium [place] [Incruse Ellipta*] 1 puff IH DAILY 05/19/19 [History] Varenicline Tartrate [Chantix] 1 mg PO BID 05/19/19 [History] Albuterol Sulfate [Albuterol Sulfate Hfa] 2 puff INH ASDIRECTED PRN 08/06/19 [ History] Albuterol [Ventolin HFA] 2 puff INH ASDIRECTED PRN 08/06/19 [History] Escitalopram [Lexapro] 20 mg PO DAILY 08/06/19 [History] Oxybutynin 5 mg PO BEDTIME 08/06/19 [History] lisinopriL [Zestril] 10 mg PO DAILY 08/06/19 [History] Sucralfate [Carafate] 1 gm PO QIDACANDBED #120 tablet 08/08/19 [Rx] Ibuprofen 200 mg PO ASDIRECTED PRN 09/01/19 [History] Simvastatin [Zocor] 10 mg PO DAILY 09/01/19 [History] diphenhydrAMINE HCL [Diphenhydramine HCl] 25 mg PO BEDTIME 09/01/19 [History] Past Medical History - Past Health History Medical/Surgical History: Denies Medical/Surgical History HEENT History: Reports: None Cardiovascular History: Reports: Hypertension Respiratory History: Reports: COPD, Other (See Below) Other Respiratory History: Home O2 @ 2LPM Gastrointestinal History: Reports: Diverticulosis Genitourinary History: Reports: Other (See Below) Other Genitourinary History: kidney stones [employer] History: Reports: None Musculoskeletal History: Reports: None Neurological History: Reports: None Psychiatric History: Reports: Addiction, Anxiety, Depression Endocrine/Metabolic History: Reports: None Hematologic History: Reports: None Immunologic History: Reports: None Oncologic (Cancer) History: Reports: None Dermatologic History: Reports: None - Infectious Disease History Infectious Disease History: Reports: Hepatitis C Other Infectious Disease History: unsure of which kind of hepatitis - Past Surgical History Head Surgeries/Procedures: Reports: None HEENT Surgical History: Reports: None Cardiovascular Surgical History: Reports: None Respiratory Surgical History: Reports: None GI Surgical History: Reports: Appendectomy Female Surgical History: Reports: None Endocrine Surgical History: Reports: None Neurological Surgical History: Reports: None Musculoskeletal Surgical History: Reports: Other (See Below) Other Musculoskeletal Surgeries/Procedures:: rt shoulder surg Oncologic Surgical History: Reports: None Dermatological Surgical History: Reports: None Social & Family History - Family History Family Medical History: Noncontributory Respiratory: Reports: Asthma, COPD : Reports: Renal Disease/Insufficiency Psychiatric: Reports: Anxiety, Depression Endocrine/Metabolic: Reports: Diabetes, type II Oncologic: Reports: Hodgkin's Lymphoma - Tobacco Use Smoking Status *Q: Former Smoker Used Tobacco, but Quit: Yes Month/Year Tobacco Last Used: 2019 - Caffeine Use Caffeine Use: Reports: Coffee, Soda Caffeine Use Comment: 5 cups avg per day - Recreational Drug Use Recreational Drug Use: No - Living Situation & Occupation Living situation: Reports: Single H&P Review of Systems - Review of Systems: Review Of Systems: See Below General: Reports: Fever, Chills HEENT: Reports: No Symptoms Pulmonary: Reports: Shortness of Breath, Pleuritic Chest Pain, Cough Cardiovascular: Denies: Edema Gastrointestinal: Reports: No Symptoms Genitourinary: Reports: No Symptoms Musculoskeletal: Reports: No Symptoms Skin: Reports: No Symptoms Psychiatric: Reports: No Symptoms Neurological: Reports: No Symptoms Hematologic/Lymphatic: Reports: No Symptoms Immunologic: Reports: No Symptoms Exam - Exam Exam: See Below - Vital Signs Vital Signs: Last Vital Signs Temp 97.1 F 10/17/19 16:56 Pulse 101 H 10/17/19 16:56 Resp 22 H 10/17/19 16:56 BP 149/95 H 10/17/19 16:56 Pulse Ox 97 10/17/19 16:56 Weight: 63.503 kg - Exam Quality Assessment: Supplemental Oxygen General: Alert, Oriented, Cooperative HEENT: Conjunctiva Clear, Mucosa Moist & [place], Posterior Pharynx Clear, Pupils Equal, Pupils Reactive Lungs: Normal Respiratory Effort, Rhonchi (right ) Cardiovascular: Regular Rate, Regular Rhythm GI/Abdominal Exam: Normal Bowel Sounds, Soft, Non-Tender, No Distention Extremities: No Pedal Edema Skin: Warm, Dry, Intact Psychiatric: Alert, Normal Affect, Normal Mood - Patient Data Lab Results Last 24 hrs: Laboratory Results - last 24 hr 10/17/19 10/17/19 10/17/19 Range/Units 16:35 16:35 16:35 WBC 17.45 H (4.0-11.0) K/uL RBC 4.98 (4.30-5.90) M/uL Hgb 14.3 (12.0-16.0) g/dL Hct 44.0 (36.0-46.0) % MCV 88.4 (80.0-98.0) fL MCH 28.7 (27.0-32.0) pg MCHC 32.5 (31.0-37.0) g/dL RDW Std Deviation 47.2 (28.0-62.0) fl RDW Coeff of Jamil 15 (11.0-15.0) % Plt Count 275 (150-400) K/uL MPV 10.30 (7.40-12.00) fL Neut % (Auto) 74.9 (48.0-80.0) % Lymph % (Auto) 14.2 L (16.0-40.0) % [place] % (Auto) 9.3 (0.0-15.0) % Eos % (Auto) 1.4 (0.0-7.0) % Baso % (Auto) 0.2 (0.0-1.5) % Neut # (Auto) 13.1 H (1.4-5.7) K/uL Lymph # (Auto) 2.5 H (0.6-2.4) K/uL [place] # (Auto) 1.6 H (0.0-0.8) K/uL Eos # (Auto) 0.3 (0.0-0.7) K/uL Baso # (Auto) 0.0 (0.0-0.1) K/uL Nucleated RBC % 0.0 /100WBC Nucleated RBCs # 0 K/uL INR 1.00 Sodium 136 (136-145) mmol/L Potassium 4.3 (3.5-5.1) mmol/L Chloride 99 (98-107) mmol/L Carbon Dioxide 26.2 (21.0-32.0) mmol/L BUN 24 H (7.0-18.0) mg/dL Creatinine 1.2 H (0.6-1.0) mg/dL Est Cr Clr Drug Dosing 48.10 mL/min Estimated GFR (MDRD) 45.4 ml/min Glucose 92 (74-106) mg/dL Calcium 9.9 (8.5-10.1) mg/dL Total Bilirubin 0.4 (0.2-1.0) mg/dL AST 25 (15-37) IU/L ALT 15 (14-63) IU/L Alkaline Phosphatase 89 (46-116) U/L Troponin I < 0.050 (0.000-0.056) ng/mL Total Protein 8.4 H (6.4-8.2) g/dL Albumin 3.7 (3.4-5.0) g/dL Globulin 4.7 H (2.6-4.0) g/dL Albumin/Globulin Ratio 0.8 L (0.9-1.6) Result Diagrams: 10/17/19 16:35 10/17/19 16:35 Sepsis Event Note - Evaluation Sepsis Screening Result: No Definite Risk - Focused Exam Vital Signs: Vital Signs Temp Pulse Resp BP Pulse Ox 10/17/19 16:56 97.1 F 101 H 22 H 149/95 H 97 Date Exam was Performed: 10/17/19 Time Exam was Performed: 18:59 Problem List Initiated/Reviewed/Updated: Yes Orders Last 24hrs: Active Orders 24 hr Category Date Time Status Admission Status [Patient Status] [ADT] Stat ADT 10/17/19 17:56 Active EKG Documentation Completion [RC] STAT Care 10/17/19 16:28 Active CORONAVIRUS COVID-19 PCR PHL Stat Lab 10/17/19 17:57 Ordered CULTURE BLOOD [BC] Stat Lab 10/17/19 17:55 Ordered CULTURE BLOOD [BC] Stat Lab 10/17/19 17:55 Ordered Sodium Chloride 0.9% [Saline Flush] Med 10/17/19 16:28 Active 10 ml FLUSH ASDIRECTED PRN Sodium Chloride 0.9% [Saline Flush] Med 10/17/19 16:28 Active 2.5 ml FLUSH ASDIRECTED PRN Sodium Chloride 0.9% [Saline Flush] Med 10/17/19 16:28 Active 2.5 ml FLUSH ASDIRECTED PRN Blood Culture x2 Reflex Set [OM.PC] Stat Oth 10/17/19 17:55 Ordered Saline Lock Insert [OM.PC] Stat Oth 10/17/19 16:28 Ordered Medication Orders Sodium Chloride (Saline Flush) 2.5 ml FLUSH ASDIRECTED PRN PRN Reason: Keep Vein Open Sodium Chloride (Saline Flush) 10 ml FLUSH ASDIRECTED PRN PRN Reason: Keep Vein Open Sodium Chloride (Saline Flush) 2.5 ml FLUSH ASDIRECTED PRN PRN Reason: Keep Vein Open Assessment/Plan Comment:: 1. Admit for observation 2. Code status- full 3. Vitals per routine 4. I/Os per routine 5. Diet- regular 6. DVT prophylaxis with lovenox 7. Community acquire pneumonia with underlying COPD- will continue to treat with Zosyn and add Vanco due to past hx of MRSA infection. Will have duonebs prn. Encourage incentive spirometry. Will obtain sputum culture. COVID and blood cultures pending. 8. Chronic conditions- HTN, hyperlipidemia, dep/anxiety- continue home meds <Wisam Young - Last Filed: 10/19/19 11:43> H&P History of Present Illness - General Admit Problem/Dx: Admission Diagnosis/Problem Admission Diagnosis/Problem Pneumonia Exam - Vital Signs Vital Signs: Last Vital Signs Temp 36.7 C 10/19/19 07:45 Pulse 89 10/19/19 07:45 Resp 18 10/19/19 07:45 BP 120/73 10/19/19 08:19 Pulse Ox 95 10/19/19 07:45 - Patient Data Lab Results Last 24 hrs: Laboratory Results - last 24 hr 10/19/19 10/19/19 10/19/19 Range/Units 07:08 07:08 07:08 WBC 10.85 (4.0-11.0) K/uL RBC 3.66 L (4.30-5.90) M/uL Hgb 10.5 L (12.0-16.0) g/dL Hct 32.8 L (36.0-46.0) % MCV 89.6 (80.0-98.0) fL MCH 28.7 (27.0-32.0) pg MCHC 32.0 (31.0-37.0) g/dL RDW Std Deviation 48.2 (28.0-62.0) fl RDW Coeff of Jamil 15 (11.0-15.0) % Plt Count 186 (150-400) K/uL MPV 9.70 (7.40-12.00) fL Neut % (Auto) 71.9 (48.0-80.0) % Lymph % (Auto) 17.1 (16.0-40.0) % [place] % (Auto) 8.3 (0.0-15.0) % Eos % (Auto) 2.5 (0.0-7.0) % Baso % (Auto) 0.2 (0.0-1.5) % Neut # (Auto) 7.8 H (1.4-5.7) K/uL Lymph # (Auto) 1.9 (0.6-2.4) K/uL [place] # (Auto) 0.9 H (0.0-0.8) K/uL Eos # (Auto) 0.3 (0.0-0.7) K/uL Baso # (Auto) 0.0 (0.0-0.1) K/uL Nucleated RBC % 0.0 /100WBC Nucleated RBCs # 0 K/uL Sodium 138 (136-145) mmol/L Potassium 4.4 (3.5-5.1) mmol/L Chloride 106 (98-107) mmol/L Carbon Dioxide 23.7 (21.0-32.0) mmol/L BUN 20 H (7.0-18.0) mg/dL Creatinine 1.1 H (0.6-1.0) mg/dL Est Cr Clr Drug Dosing 52.48 mL/min Estimated GFR (MDRD) 50.2 ml/min Glucose 130 H (74-106) mg/dL Calcium 8.0 L (8.5-10.1) mg/dL Vancomycin Trough 15.5 H (5.0-10.0) ug/mL Result Diagrams: 10/19/19 07:08 10/19/19 07:08 Ryan Results Last 24 hrs: Microbiology 10/17/19 18:18 Aerobic Blood Culture - Preliminary Blood - Venous - Lab Draw NO GROWTH AFTER 1 DAY Anaerobic Blood Culture - Final 10/17/19 18:06 Aerobic Blood Culture - Preliminary Blood - Venous NO GROWTH AFTER 1 DAY Anaerobic Blood Culture - Preliminary NO GROWTH AFTER 1 DAY Sepsis Event Note - Focused Exam Vital Signs: Vital Signs Temp Pulse Resp BP BP Pulse Ox Pulse Ox 10/19/19 08:19 120/73 10/19/19 08:18 120/73 10/19/19 07:45 36.7 C 89 18 120/72 95 10/19/19 06:22 97 10/19/19 03:56 36.3 C 75 20 134/78 96 10/19/19 00:29 37.2 C 79 22 H 140/81 93 L Date Exam was Performed: 10/19/19 Time Exam was Performed: 11:41 Orders Last 24hrs: Active Orders 24 hr Category Date Time Status VANCOMYCIN TROUGH [CHEM] Timed Lab 10/21/19 07:30 Ordered Medication Orders Acetaminophen (Tylenol) 650 mg PO Q4H PRN PRN Reason: Pain/Fever Last Admin: 10/18/19 22:47 Dose: 650 mg Admin: 10/18/19 16:53 Dose: 650 mg Admin: 10/18/19 10:15 Dose: 650 mg Admin: 10/18/19 03:07 Dose: 650 mg Admin: 10/17/19 19:02 Dose: 650 mg Albuterol/Ipratropium (Duoneb 3.0-0.5 Mg/3 Ml) 3 ml NEB Q4HRRT PRN PRN Reason: Shortness of Breath Last Admin: 10/19/19 10:38 Dose: 3 ml Admin: 10/19/19 06:21 Dose: 3 ml Admin: 10/19/19 00:24 Dose: 3 ml Admin: 10/18/19 16:59 Dose: 3 ml Admin: 10/18/19 03:17 Dose: 3 ml Clonidine HCl (Catapres) 0.1 mg PO BID [facility] Last Admin: 10/19/19 08:19 Dose: 0.1 mg Admin: 10/18/19 20:15 Dose: 0.1 mg Admin: 10/18/19 08:28 Dose: 0.1 mg Admin: 10/17/19 20:04 Dose: 0.1 mg Enoxaparin Sodium (Lovenox) 40 mg SUBCUT Q24H [facility] Last Admin: 10/18/19 18:36 Dose: 40 mg Admin: 10/17/19 19:55 Dose: 40 mg Piperacillin Sod/Tazobactam (Sod 4.5 gm/ Sodium Chloride) 100 mls @ 100 mls/hr IV Q6H [facility] Last Admin: 10/19/19 06:02 Dose: 100 mls/hr Infusion: 10/19/19 01:24 Dose: 100 mls/hr Admin: 10/19/19 00:24 Dose: 100 mls/hr Infusion: 10/18/19 19:34 Dose: 100 mls/hr Admin: 05/09/20 18:34 Dose: 100 mls/hr Infusion: 10/18/19 13:25 Dose: 100 mls/hr Admin: 10/18/19 12:25 Dose: 100 mls/hr Infusion: 10/18/19 07:19 Dose: 100 mls/hr Admin: 10/18/19 06:19 Dose: 100 mls/hr Infusion: 10/18/19 00:56 Dose: 100 mls/hr Admin: 10/17/19 23:56 Dose: 100 mls/hr Admin: 10/17/19 19:42 Dose: Vancomycin HCl 1 gm/ Sodium (Chloride) 250 mls @ 166 mls/hr IV Q12H [facility] Last Admin: 10/19/19 08:12 Dose: 166 mls/hr Infusion: 10/18/19 21:39 Dose: 166 mls/hr Admin: 10/18/19 20:08 Dose: 166 mls/hr Infusion: 10/18/19 10:08 Dose: 166 mls/hr Admin: 10/18/19 08:37 Dose: 166 mls/hr Sodium Chloride (Normal Saline) 1,000 mls @ 125 mls/hr IV ASDIRECTED [facility] Last Admin: 10/19/19 03:01 Dose: 125 mls/hr Infusion: 10/18/19 23:24 Dose: 125 mls/hr Admin: 10/18/19 15:24 Dose: 125 mls/hr Infusion: 10/18/19 14:20 Dose: 125 mls/hr Admin: 10/18/19 06:20 Dose: 125 mls/hr Ketorolac Tromethamine (Toradol) 30 mg IVPUSH Q12HR PRN PRN Reason: Pain Stop: 10/23/19 10:20 Last Admin: 10/19/19 00:24 Dose: 30 mg Admin: 10/18/19 12:24 Dose: 30 mg Lisinopril (Prinivil) 10 mg PO DAILY [facility] Last Admin: 10/19/19 08:18 Dose: 10 mg Admin: 10/18/19 08:25 Dose: 10 mg Non-Formulary Medication (Budesonide/Formoterol Fumarate [Symbicort 80-4.5 Mcg] ) 1 puff IH BID [facility] Last Admin: 10/19/19 08:18 Dose: Not Given Admin: 10/18/19 20:11 Dose: Admin: 10/18/19 08:37 Dose: Not Given Admin: 10/17/19 20:46 Dose: Non-Formulary Medication (Escitalopram) 20 mg PO DAILY [facility] Last Admin: 10/19/19 08:20 Dose: Not Given Admin: 10/18/19 08:37 Dose: Not Given Non-Formulary Medication (Umeclidinium [place] [Incruse Ellipta*]) 1 puff INH DAILY [facility] Last Admin: 10/19/19 08:20 Dose: Not Given Admin: 10/18/19 08:37 Dose: Not Given Ondansetron HCl (Zofran) 4 mg IVPUSH Q4H PRN PRN Reason: Nausea/Vomiting Oxybutynin Chloride (Oxybutynin) 5 mg PO BEDTIME [facility] Last Admin: 10/18/19 20:16 Dose: 5 mg Admin: 10/17/19 20:04 Dose: 5 mg Simvastatin (Zocor) 10 mg PO DAILY [facility] Last Admin: 10/19/19 08:19 Dose: 10 mg Admin: 10/18/19 08:27 Dose: 10 mg Sodium Chloride (Saline Flush) 2.5 ml FLUSH ASDIRECTED PRN PRN Reason: Keep Vein Open Sodium Chloride (Saline Flush) 10 ml FLUSH ASDIRECTED PRN PRN Reason: Keep Vein Open Vancomycin HCl (Pharmacy To Dose - Vancomycin) 1 dose .XX ASDIRECTED [facility] Venlafaxine HCl (Effexor Xr) 75 mg PO DAILY [facility] Last Admin: 10/19/19 08:18 Dose: 75 mg Admin: 10/18/19 08:25 Dose: 75 mg Assessment/Plan Comment:: HCAP: Patient has been in hospital setting within last 90 days, treat with vancomycin and Zosyn.,
[2019-10-17] MEDS ORDERED: Ondansetron 4 MG/2 ML SDV IVPUSH PRN (18:42)
[2019-10-17] MEDS ORDERED: Sodium Chloride 0.9% 1,000 ML IV SCH (19:00)
[2019-10-17] MEDS: Acetaminophen 325 MG Tab PO PRN (19:02)
[2019-10-17] MEDS: Piperacillin/Tazobactam 4.5 GM in Sodium Chloride 0.9% 100 ML IV SCH ×2 (19:42→23:56)
[2019-10-17] MEDS: Enoxaparin 40 MG/0.4 ML Syringe SUBCUT SCH (19:55)
[2019-10-17] MEDS: cloNIDine 0.1 MG Tab PO SCH (20:04)
[2019-10-17] MEDS: Oxybutynin 5 MG Tab PO SCH (20:04)
[2019-10-17] MEDS: BUDESONIDE IH SCH (20:46)
[2019-10-17] MEDS: FORMOTEROL FUMARATE IH SCH (20:46)
[2019-10-17] MEDS: [UNRECOGNIZED DRUG - OTHER] IH SCH (20:46)
[2019-10-18] MEDS: Acetaminophen 325 MG Tab PO PRN ×4 (03:07→22:47)
[2019-10-18] MEDS: Albuterol/Ipratropium 3.0-0.5 MG/3 ML Neb Soln NEB PRN ×2 (03:17→16:59)
[2019-10-18] MEDS: Piperacillin/Tazobactam 4.5 GM in Sodium Chloride 0.9% 100 ML IV SCH ×3 (06:19→18:34)
[2019-10-18] MEDS: Sodium Chloride 0.9% 1,000 ML IV SCH ×2 (06:20→15:24)
[2019-10-18 07:10] LABS: CARBON DIOXIDE,CO2 23.7 mmol/L (21.0-32.0)
[2019-10-18] MEDS: Lisinopril 10 MG Tab PO SCH (08:25)
[2019-10-18] MEDS: Venlafaxine 75 MG Cap.ER PO SCH (08:25)
[2019-10-18] MEDS: Simvastatin 10 MG Tab PO SCH (08:27)
[2019-10-18] MEDS: cloNIDine 0.1 MG Tab PO SCH ×2 (08:28→20:15)
[2019-10-18] MEDS: Non-Formulary Medication 1 Each (Umeclidinium Bromide [Incruse Ellipta*] 1 PUFF) INH SCH (08:37)
[2019-10-18] MEDS: [UNRECOGNIZED DRUG - OTHER] IH SCH ×2 (08:37→20:11)
[2019-10-18] MEDS: FORMOTEROL FUMARATE IH SCH ×2 (08:37→20:11)
[2019-10-18] MEDS: BUDESONIDE IH SCH ×2 (08:37→20:11)
[2019-10-18] MEDS: Non-Formulary Medication 1 Each (Escitalopram 20 MG) PO SCH (08:37)
--- NOTE | 2019-10-18 08:38 | PCM.PN ---
<Liv Austin - Last Filed: 10/18/19 11:01> - General Info Date of Service: 10/18/19 Subjective Update: Patient reports she feels a little better today but still has right sided chest wall pain. Still on baseline oxygen requirement and no fever overnight. Eating and drinking well. - Review of Systems General: Reports: No Symptoms HEENT: Reports: No Symptoms Pulmonary: Denies: Shortness of Breath, Cough Cardiovascular: Reports: No Symptoms Gastrointestinal: Reports: No Symptoms Genitourinary: Reports: No Symptoms Musculoskeletal: Reports: Other (anterior chest wall pain) Skin: Reports: No Symptoms Neurological: Reports: No Symptoms Psychiatric: Reports: No Symptoms - Patient Data Vitals - Most Recent: Last Vital Signs Temp 97.8 F 10/18/19 03:13 Pulse 68 10/18/19 03:13 Resp 20 10/18/19 03:13 BP 121/70 10/18/19 08:28 Pulse Ox 98 10/18/19 03:13 Weight - Most Recent: 63.5 kg I&O - Last 24 Hours: Intake & Output 10/17/19 10/18/19 10/18/19 22:59 06:59 14:59 Intake Total 250 400 Output Total 200 Balance 250 200 Lab Results Last 24 Hours: Laboratory Results - last 24 hr 10/17/19 10/17/19 10/17/19 Range/Units 16:35 16:35 16:35 WBC 17.45 H (4.0-11.0) K/uL RBC 4.98 (4.30-5.90) M/uL Hgb 14.3 (12.0-16.0) g/dL Hct 44.0 (36.0-46.0) % MCV 88.4 (80.0-98.0) fL MCH 28.7 (27.0-32.0) pg MCHC 32.5 (31.0-37.0) g/dL RDW Std Deviation 47.2 (28.0-62.0) fl RDW Coeff of Jamil 15 (11.0-15.0) % Plt Count 275 (150-400) K/uL MPV 10.30 (7.40-12.00) fL Neut % (Auto) 74.9 (48.0-80.0) % Lymph % (Auto) 14.2 L (16.0-40.0) % Mclennan % (Auto) 9.3 (0.0-15.0) % Eos % (Auto) 1.4 (0.0-7.0) % Baso % (Auto) 0.2 (0.0-1.5) % Neut # (Auto) 13.1 H (1.4-5.7) K/uL Lymph # (Auto) 2.5 H (0.6-2.4) K/uL Mclennan # (Auto) 1.6 H (0.0-0.8) K/uL Eos # (Auto) 0.3 (0.0-0.7) K/uL Baso # (Auto) 0.0 (0.0-0.1) K/uL Nucleated RBC % 0.0 /100WBC Nucleated RBCs # 0 K/uL INR 1.00 Sodium 136 (136-145) mmol/L Potassium 4.3 (3.5-5.1) mmol/L Chloride 99 (98-107) mmol/L Carbon Dioxide 26.2 (21.0-32.0) mmol/L BUN 24 H (7.0-18.0) mg/dL Creatinine 1.2 H (0.6-1.0) mg/dL Est Cr Clr Drug Dosing 48.10 mL/min Estimated GFR (MDRD) 45.4 ml/min Glucose 92 (74-106) mg/dL Calcium 9.9 (8.5-10.1) mg/dL Phosphorus (2.6-4.7) mg/dL Magnesium (1.8-2.4) mg/dL Total Bilirubin 0.4 (0.2-1.0) mg/dL AST 25 (15-37) IU/L ALT 15 (14-63) IU/L Alkaline Phosphatase 89 (46-116) U/L Troponin I < 0.050 (0.000-0.056) ng/mL Total Protein 8.4 H (6.4-8.2) g/dL Albumin 3.7 (3.4-5.0) g/dL Globulin 4.7 H (2.6-4.0) g/dL Albumin/Globulin Ratio 0.8 L (0.9-1.6) Urine Color Urine Appearance Urine pH (5.0-8.0) Ur Specific [place] (1.001-1.035) Urine Protein (NEGATIVE) mg/dL Urine Glucose (UA) (NEGATIVE) mg/dL Urine Ketones (NEGATIVE) mg/dL Urine Occult Blood (NEGATIVE) Urine Nitrite (NEGATIVE) Urine Bilirubin (NEGATIVE) Urine Urobilinogen (<2.0) EU/dL Ur Leukocyte Esterase (NEGATIVE) SARS-CoV-2 RNA (RT-PCR) (NEGATIVE) 10/17/19 10/17/19 10/18/19 Range/Units 16:35 18:25 03:25 WBC (4.0-11.0) K/uL RBC (4.30-5.90) M/uL Hgb (12.0-16.0) g/dL Hct (36.0-46.0) % MCV (80.0-98.0) fL MCH (27.0-32.0) pg MCHC (31.0-37.0) g/dL RDW Std Deviation (28.0-62.0) fl RDW Coeff of Jamil (11.0-15.0) % Plt Count (150-400) K/uL MPV (7.40-12.00) fL Neut % (Auto) (48.0-80.0) % Lymph % (Auto) (16.0-40.0) % Mclennan % (Auto) (0.0-15.0) % Eos % (Auto) (0.0-7.0) % Baso % (Auto) (0.0-1.5) % Neut # (Auto) (1.4-5.7) K/uL Lymph # (Auto) (0.6-2.4) K/uL Mclennan # (Auto) (0.0-0.8) K/uL Eos # (Auto) (0.0-0.7) K/uL Baso # (Auto) (0.0-0.1) K/uL Nucleated RBC % /100WBC Nucleated RBCs # K/uL INR Sodium (136-145) mmol/L Potassium (3.5-5.1) mmol/L Chloride (98-107) mmol/L Carbon Dioxide (21.0-32.0) mmol/L BUN (7.0-18.0) mg/dL Creatinine (0.6-1.0) mg/dL Est Cr Clr Drug Dosing mL/min Estimated GFR (MDRD) ml/min Glucose (74-106) mg/dL Calcium (8.5-10.1) mg/dL Phosphorus 3.3 (2.6-4.7) mg/dL Magnesium 1.8 (1.8-2.4) mg/dL Total Bilirubin (0.2-1.0) mg/dL AST (15-37) IU/L ALT (14-63) IU/L Alkaline Phosphatase (46-116) U/L Troponin I (0.000-0.056) ng/mL Total Protein (6.4-8.2) g/dL Albumin (3.4-5.0) g/dL Globulin (2.6-4.0) g/dL Albumin/Globulin Ratio (0.9-1.6) Urine Color YELLOW Urine Appearance CLEAR Urine pH 5.5 (5.0-8.0) Ur Specific [place] >= 1.030 (1.001-1.035) Urine Protein NEGATIVE (NEGATIVE) mg/dL Urine Glucose (UA) NEGATIVE (NEGATIVE) mg/dL Urine Ketones NEGATIVE (NEGATIVE) mg/dL Urine Occult Blood NEGATIVE (NEGATIVE) Urine Nitrite NEGATIVE (NEGATIVE) Urine Bilirubin NEGATIVE (NEGATIVE) Urine Urobilinogen 0.2 (<2.0) EU/dL Ur Leukocyte Esterase NEGATIVE (NEGATIVE) SARS-CoV-2 RNA (RT-PCR) NEGATIVE (NEGATIVE) 10/18/19 10/18/19 Range/Units 06:25 06:25 WBC 13.52 H (4.0-11.0) K/uL RBC 3.83 L (4.30-5.90) M/uL Hgb 10.9 L (12.0-16.0) g/dL Hct 33.9 L (36.0-46.0) % MCV 88.5 (80.0-98.0) fL MCH 28.5 (27.0-32.0) pg MCHC 32.2 (31.0-37.0) g/dL RDW Std Deviation 47.8 (28.0-62.0) fl RDW Coeff of Jamil 15 (11.0-15.0) % Plt Count 221 (150-400) K/uL MPV 9.50 (7.40-12.00) fL Neut % (Auto) 77.4 (48.0-80.0) % Lymph % (Auto) 12.6 L (16.0-40.0) % Mclennan % (Auto) 8.0 (0.0-15.0) % Eos % (Auto) 1.9 (0.0-7.0) % Baso % (Auto) 0.1 (0.0-1.5) % Neut # (Auto) 10.5 H (1.4-5.7) K/uL Lymph # (Auto) 1.7 (0.6-2.4) K/uL Mclennan # (Auto) 1.1 H (0.0-0.8) K/uL Eos # (Auto) 0.3 (0.0-0.7) K/uL Baso # (Auto) 0.0 (0.0-0.1) K/uL Nucleated RBC % 0.0 /100WBC Nucleated RBCs # 0 K/uL INR Sodium 138 (136-145) mmol/L Potassium 4.0 (3.5-5.1) mmol/L Chloride 105 (98-107) mmol/L Carbon Dioxide 23.7 (21.0-32.0) mmol/L BUN 22 H (7.0-18.0) mg/dL Creatinine 1.2 H (0.6-1.0) mg/dL Est Cr Clr Drug Dosing 48.10 mL/min Estimated GFR (MDRD) 45.4 ml/min Glucose 103 (74-106) mg/dL Calcium 8.1 L (8.5-10.1) mg/dL Phosphorus (2.6-4.7) mg/dL Magnesium (1.8-2.4) mg/dL Total Bilirubin (0.2-1.0) mg/dL AST (15-37) IU/L ALT (14-63) IU/L Alkaline Phosphatase (46-116) U/L Troponin I (0.000-0.056) ng/mL Total Protein (6.4-8.2) g/dL Albumin (3.4-5.0) g/dL Globulin (2.6-4.0) g/dL Albumin/Globulin Ratio (0.9-1.6) Urine Color Urine Appearance Urine pH (5.0-8.0) Ur Specific [place] (1.001-1.035) Urine Protein (NEGATIVE) mg/dL Urine Glucose (UA) (NEGATIVE) mg/dL Urine Ketones (NEGATIVE) mg/dL Urine Occult Blood (NEGATIVE) Urine Nitrite (NEGATIVE) Urine Bilirubin (NEGATIVE) Urine Urobilinogen (<2.0) EU/dL Ur Leukocyte Esterase (NEGATIVE) SARS-CoV-2 RNA (RT-PCR) (NEGATIVE) Ryan Results Last 24 Hours: Microbiology 10/17/19 18:18 Anaerobic Blood Culture - Final Blood - Venous - Lab Draw Med Orders - Current: Current Medications Acetaminophen (Tylenol) 650 mg PO Q4H PRN PRN Reason: Pain/Fever Last Admin: 10/18/19 03:07 Dose: 650 mg Albuterol/Ipratropium (Duoneb 3.0-0.5 Mg/3 Ml) 3 ml NEB Q4HRRT PRN PRN Reason: Shortness of Breath Last Admin: 10/18/19 03:17 Dose: 3 ml Clonidine HCl (Catapres) 0.1 mg PO BID [facility] Last Admin: 10/18/19 08:28 Dose: 0.1 mg Enoxaparin Sodium (Lovenox) 40 mg SUBCUT Q24H [facility] Last Admin: 10/17/19 19:55 Dose: 40 mg Piperacillin Sod/Tazobactam (Sod 4.5 gm/ Sodium Chloride) 100 mls @ 100 mls/hr IV Q6H [facility] Last Admin: 10/18/19 06:19 Dose: 100 mls/hr Vancomycin HCl 1 gm/ Sodium (Chloride) 250 mls @ 166 mls/hr IV Q12H [facility] Sodium Chloride (Normal Saline) 1,000 mls @ 125 mls/hr IV ASDIRECTED [facility] Last Admin: 10/18/19 06:20 Dose: 125 mls/hr Lisinopril (Prinivil) 10 mg PO DAILY [facility] Last Admin: 10/18/19 08:25 Dose: 10 mg Non-Formulary Medication (Budesonide/Formoterol Fumarate [Symbicort 80-4.5 Mcg] ) 1 puff IH BID [facility] Last Admin: 10/17/19 20:46 Dose: Not Given Non-Formulary Medication (Escitalopram) 20 mg PO DAILY [facility] Non-Formulary Medication (Umeclidinium [place] [Incruse Ellipta*]) 1 puff INH DAILY [facility] Ondansetron HCl (Zofran) 4 mg IVPUSH Q4H PRN PRN Reason: Nausea/Vomiting Oxybutynin Chloride (Oxybutynin) 5 mg PO BEDTIME [facility] Last Admin: 10/17/19 20:04 Dose: 5 mg Simvastatin (Zocor) 10 mg PO DAILY [facility] Last Admin: 10/18/19 08:27 Dose: 10 mg Sodium Chloride (Saline Flush) 2.5 ml FLUSH ASDIRECTED PRN PRN Reason: Keep Vein Open Sodium Chloride (Saline Flush) 10 ml FLUSH ASDIRECTED PRN PRN Reason: Keep Vein Open Sodium Chloride (Saline Flush) 2.5 ml FLUSH ASDIRECTED PRN PRN Reason: Keep Vein Open Vancomycin HCl (Pharmacy To Dose - Vancomycin) 1 dose .XX ASDIRECTED [facility] Venlafaxine HCl (Effexor Xr) 75 mg PO DAILY [facility] Last Admin: 10/18/19 08:25 Dose: 75 mg Discontinued Medications Sodium Chloride (Normal Saline) 1,000 mls @ 999 mls/hr IV BOLUS ONE Stop: 10/17/19 17:28 Last Admin: 10/17/19 16:42 Dose: 999 mls/hr Piperacillin Sod/Tazobactam (Sod 3.375 gm/ Sodium Chloride) 50 mls @ 100 mls/ hr IV ONETIME ONE Stop: 10/17/19 17:59 Last Admin: 10/17/19 17:48 Dose: 100 mls/hr Sodium Chloride (Normal Saline) 1,000 mls @ 100 mls/hr IV STAT [facility] Last Admin: 10/17/19 19:45 Dose: 100 mls/hr Vancomycin HCl 1 gm/ Sodium (Chloride) 250 mls @ 166 mls/hr IV Q12H [facility] Last Admin: 10/17/19 19:50 Dose: 166 mls/hr Vancomycin HCl 1 gm/ Sodium (Chloride) 250 mls @ 166 mls/hr IV Q12H [facility] Ketorolac Tromethamine (Toradol) 30 mg IVPUSH ONETIME ONE Stop: 10/17/19 16:38 Last Admin: 10/17/19 16:40 Dose: 30 mg - Exam General: Alert, Oriented, Cooperative Lungs: Normal Respiratory Effort, Rhonchi (right) Cardiovascular: Regular Rate, Regular Rhythm GI/Abdominal Exam: Normal Bowel Sounds, Soft, Non-Tender, No Distention Extremities: No Pedal Edema Skin: Warm, Dry Neurological: No New Focal Deficit Psy/Mental Status: Alert, Normal Affect, Normal Mood Sepsis Event Note - Evaluation Sepsis Screening Result: No Definite Risk - Focused Exam Vital Signs: Vital Signs Temp Pulse Resp BP BP Pulse Ox 10/18/19 08:28 121/70 10/18/19 08:25 121/70 10/18/19 03:13 97.8 F 68 20 136/65 98 10/18/19 00:00 97.2 F 75 18 104/59 L 94 L Date Exam was Performed: 10/18/19 Time Exam was Performed: 11:01 - Problem List Review Problem List Initiated/Reviewed/Updated: Yes - My Orders Last 24 Hours: My Active Orders 10/17/19 18:42 Intake and Output [RC] Q12H Vital Signs [RC] Q4H CULTURE SPUTUM + SMEAR [RM] Stat Acetaminophen [Tylenol] 650 mg PO Q4H PRN Ondansetron [Zofran] 4 mg IVPUSH Q4H PRN Resuscitation Status Stat 10/17/19 18:45 Incentive Spirometry [RT Incentive Spirometry] [RC] ASDIRECTED RT Aerosol Therapy [RC] ASDIRECTED Albuterol/Ipratropium [DuoNeb 3.0-0.5 MG/3 ML] 3 ml NEB Q4HRRT PRN Enoxaparin [Lovenox] 40 mg SUBCUT Q24H Piperacillin/Tazobactam [Piperacil-Tazobact] 4.5 gm Sodium Chloride 0.9% [ Normal Saline] 100 ml IV Q6H 10/17/19 19:00 Pharmacy to Dose - Vancomycin 1 dose .XX ASDIRECTED 10/17/19 21:00 Budesonide/Formoterol Fumarate [Symbicort 80-4.5 MCG] 1 puff IH BID Oxybutynin 5 mg PO BEDTIME cloNIDine [Catapres] 0.1 mg PO BID 10/18/19 08:00 Vancomycin [Vancocin] 1 gm Sodium Chloride 0.9% [Normal Saline (AdvBag)] 250 ml IV Q12H 10/18/19 09:00 Escitalopram 20 mg PO DAILY Simvastatin [Zocor] 10 mg PO DAILY Umeclidinium [place] [Incruse Ellipta*] 1 puff INH DAILY Venlafaxine [Effexor XR] 75 mg PO DAILY lisinopriL [Prinivil] 10 mg PO DAILY 10/18/19 Breakfast Regular Diet [DIET] - Plan Plan:: 1. Community acquire pneumonia with underlying oxygen dependent COPD- white count improving, will continue to treat with Zosyn and add Vanco due to past hx of MRSA infection. Will have duonebs prn. Encourage incentive spirometry. Will obtain sputum culture. COVID negative. Blood cultures pending. 2. Chronic conditions- HTN, hyperlipidemia, dep/anxiety- continue home meds <Wisam Young - Last Filed: 10/19/19 11:44> - Patient Data Vitals - Most Recent: Last Vital Signs Temp 36.7 C 10/19/19 07:45 Pulse 89 10/19/19 07:45 Resp 18 10/19/19 07:45 BP 120/73 10/19/19 08:19 Pulse Ox 95 10/19/19 07:45 I&O - Last 24 Hours: Intake & Output 10/18/19 10/19/19 10/19/19 22:59 06:59 14:59 Intake Total 1877 2251 Output Total 250 530 Balance 1627 1721 Lab Results Last 24 Hours: Laboratory Results - last 24 hr 10/19/19 10/19/19 10/19/19 Range/Units 07:08 07:08 07:08 WBC 10.85 (4.0-11.0) K/uL RBC 3.66 L (4.30-5.90) M/uL Hgb 10.5 L (12.0-16.0) g/dL Hct 32.8 L (36.0-46.0) % MCV 89.6 (80.0-98.0) fL MCH 28.7 (27.0-32.0) pg MCHC 32.0 (31.0-37.0) g/dL RDW Std Deviation 48.2 (28.0-62.0) fl RDW Coeff of Jamil 15 (11.0-15.0) % Plt Count 186 (150-400) K/uL MPV 9.70 (7.40-12.00) fL Neut % (Auto) 71.9 (48.0-80.0) % Lymph % (Auto) 17.1 (16.0-40.0) % [place] % (Auto) 8.3 (0.0-15.0) % Eos % (Auto) 2.5 (0.0-7.0) % Baso % (Auto) 0.2 (0.0-1.5) % Neut # (Auto) 7.8 H (1.4-5.7) K/uL Lymph # (Auto) 1.9 (0.6-2.4) K/uL [place] # (Auto) 0.9 H (0.0-0.8) K/uL Eos # (Auto) 0.3 (0.0-0.7) K/uL Baso # (Auto) 0.0 (0.0-0.1) K/uL Nucleated RBC % 0.0 /100WBC Nucleated RBCs # 0 K/uL Sodium 138 (136-145) mmol/L Potassium 4.4 (3.5-5.1) mmol/L Chloride 106 (98-107) mmol/L Carbon Dioxide 23.7 (21.0-32.0) mmol/L BUN 20 H (7.0-18.0) mg/dL Creatinine 1.1 H (0.6-1.0) mg/dL Est Cr Clr Drug Dosing 52.48 mL/min Estimated GFR (MDRD) 50.2 ml/min Glucose 130 H (74-106) mg/dL Calcium 8.0 L (8.5-10.1) mg/dL Vancomycin Trough 15.5 H (5.0-10.0) ug/mL Ryan Results Last 24 Hours: Microbiology 10/17/19 18:18 Aerobic Blood Culture - Preliminary Blood - Venous - Lab Draw NO GROWTH AFTER 1 DAY Anaerobic Blood Culture - Final 10/17/19 18:06 Aerobic Blood Culture - Preliminary Blood - Venous NO GROWTH AFTER 1 DAY Anaerobic Blood Culture - Preliminary NO GROWTH AFTER 1 DAY Med Orders - Current: Current Medications Acetaminophen (Tylenol) 650 mg PO Q4H PRN PRN Reason: Pain/Fever Last Admin: 10/18/19 22:47 Dose: 650 mg Albuterol/Ipratropium (Duoneb 3.0-0.5 Mg/3 Ml) 3 ml NEB Q4HRRT PRN PRN Reason: Shortness of Breath Last Admin: 10/19/19 10:38 Dose: 3 ml Clonidine HCl (Catapres) 0.1 mg PO BID [facility] Last Admin: 10/19/19 08:19 Dose: 0.1 mg Enoxaparin Sodium (Lovenox) 40 mg SUBCUT Q24H [facility] Last Admin: 10/18/19 18:36 Dose: 40 mg Piperacillin Sod/Tazobactam (Sod 4.5 gm/ Sodium Chloride) 100 mls @ 100 mls/hr IV Q6H [facility] Last Admin: 10/19/19 06:02 Dose: 100 mls/hr Vancomycin HCl 1 gm/ Sodium (Chloride) 250 mls @ 166 mls/hr IV Q12H [facility] Last Admin: 10/19/19 08:12 Dose: 166 mls/hr Sodium Chloride (Normal Saline) 1,000 mls @ 125 mls/hr IV ASDIRECTED [facility] Last Admin: 10/19/19 03:01 Dose: 125 mls/hr Ketorolac Tromethamine (Toradol) 30 mg IVPUSH Q12HR PRN PRN Reason: Pain Stop: 10/23/19 10:20 Last Admin: 10/19/19 00:24 Dose: 30 mg Lisinopril (Prinivil) 10 mg PO DAILY [facility] Last Admin: 10/19/19 08:18 Dose: 10 mg Non-Formulary Medication (Budesonide/Formoterol Fumarate [Symbicort 80-4.5 Mcg] ) 1 puff IH BID [facility] Last Admin: 10/19/19 08:18 Dose: Not Given Non-Formulary Medication (Escitalopram) 20 mg PO DAILY [facility] Last Admin: 10/19/19 08:20 Dose: Not Given Non-Formulary Medication (Umeclidinium [place] [Incruse Ellipta*]) 1 puff INH DAILY [facility] Last Admin: 10/19/19 08:20 Dose: Not Given Ondansetron HCl (Zofran) 4 mg IVPUSH Q4H PRN PRN Reason: Nausea/Vomiting Oxybutynin Chloride (Oxybutynin) 5 mg PO BEDTIME [facility] Last Admin: 10/18/19 20:16 Dose: 5 mg Simvastatin (Zocor) 10 mg PO DAILY [facility] Last Admin: 10/19/19 08:19 Dose: 10 mg Sodium Chloride (Saline Flush) 2.5 ml FLUSH ASDIRECTED PRN PRN Reason: Keep Vein Open Sodium Chloride (Saline Flush) 10 ml FLUSH ASDIRECTED PRN PRN Reason: Keep Vein Open Vancomycin HCl (Pharmacy To Dose - Vancomycin) 1 dose .XX ASDIRECTED [facility] Venlafaxine HCl (Effexor Xr) 75 mg PO DAILY [facility] Last Admin: 10/19/19 08:18 Dose: 75 mg Discontinued Medications Sodium Chloride (Normal Saline) 1,000 mls @ 999 mls/hr IV BOLUS ONE Stop: 10/17/19 17:28 Last Admin: 10/17/19 16:42 Dose: 999 mls/hr Piperacillin Sod/Tazobactam (Sod 3.375 gm/ Sodium Chloride) 50 mls @ 100 mls/ hr IV ONETIME ONE Stop: 10/17/19 17:59 Last Admin: 10/17/19 17:48 Dose: 100 mls/hr Sodium Chloride (Normal Saline) 1,000 mls @ 100 mls/hr IV STAT [facility] Last Admin: 10/17/19 19:45 Dose: 100 mls/hr Vancomycin HCl 1 gm/ Sodium (Chloride) 250 mls @ 166 mls/hr IV Q12H [facility] Last Admin: 10/17/19 19:50 Dose: 166 mls/hr Vancomycin HCl 1 gm/ Sodium (Chloride) 250 mls @ 166 mls/hr IV Q12H [facility] Ketorolac Tromethamine (Toradol) 30 mg IVPUSH ONETIME ONE Stop: 10/17/19 16:38 Last Admin: 10/17/19 16:40 Dose: 30 mg Sepsis Event Note - Focused Exam Vital Signs: Vital Signs Temp Pulse Resp BP BP Pulse Ox Pulse Ox 10/19/19 08:19 120/73 10/19/19 08:18 120/73 10/19/19 07:45 36.7 C 89 18 120/72 95 10/19/19 06:22 97 10/19/19 03:56 36.3 C 75 20 134/78 96 10/19/19 00:29 37.2 C 79 22 H 140/81 93 L Date Exam was Performed: 10/19/19 Time Exam was Performed: 11:43 - Plan Plan:: HCAP: cont IV antibiotics, fu on blood cultures, cont DuoNebs, cont IS
[2019-10-18] MEDS: Ketorolac 30 MG/ML SDV IVPUSH PRN (12:24)
[2019-10-18] MEDS: Enoxaparin 40 MG/0.4 ML Syringe SUBCUT SCH (18:36)
[2019-10-18] MEDS: Oxybutynin 5 MG Tab PO SCH (20:16)
[2019-10-19] MEDS: Ketorolac 30 MG/ML SDV IVPUSH PRN ×2 (00:24→13:02)
[2019-10-19] MEDS: Piperacillin/Tazobactam 4.5 GM in Sodium Chloride 0.9% 100 ML IV SCH ×4 (00:24→18:11)
[2019-10-19] MEDS: Albuterol/Ipratropium 3.0-0.5 MG/3 ML Neb Soln NEB PRN ×6 (00:24→23:11)
[2019-10-19] MEDS: Sodium Chloride 0.9% 1,000 ML IV SCH ×3 (03:01→23:49)
[2019-10-19 07:24] LABS: CARBON DIOXIDE,CO2 23.7 mmol/L (21.0-32.0); POTASSIUM,K 4.4 mmol/L (3.5-5.1)
[2019-10-19] MEDS: Lisinopril 10 MG Tab PO SCH (08:18)
[2019-10-19] MEDS: [UNRECOGNIZED DRUG - OTHER] IH SCH ×2 (08:18→20:09)
[2019-10-19] MEDS: FORMOTEROL FUMARATE IH SCH ×2 (08:18→20:09)
[2019-10-19] MEDS: BUDESONIDE IH SCH ×2 (08:18→20:09)
[2019-10-19] MEDS: Venlafaxine 75 MG Cap.ER PO SCH (08:18)
[2019-10-19] MEDS: cloNIDine 0.1 MG Tab PO SCH ×2 (08:19→20:07)
[2019-10-19] MEDS: Simvastatin 10 MG Tab PO SCH (08:19)
[2019-10-19] MEDS: Non-Formulary Medication 1 Each (Umeclidinium Bromide [Incruse Ellipta*] 1 PUFF) INH SCH (08:20)
[2019-10-19] MEDS: Non-Formulary Medication 1 Each (Escitalopram 20 MG) PO SCH (08:20)
--- NOTE | 2019-10-19 11:41 | PCM.PN ---
- General Info Date of Service: 10/19/19 Admission Dx/Problem (Free Text): Admission Diagnosis/Problem Admission Diagnosis/Problem Pneumonia Subjective Update: Patient reports she feels very exhausted and c/o back pain and severe head ache , Still on baseline oxygen requirement and no fever overnight. Eating and drinking well. - Review of Systems General: Reports: Weakness, Fatigue. Denies: Fever, Chills, Night Sweats Pulmonary: Reports: Pleuritic Chest Pain, Cough. Denies: Shortness of Breath, Sputum, Hemoptysis, Wheezing Cardiovascular: Reports: Dyspnea on Exertion. Denies: Chest Pain, Palpitations Gastrointestinal: Denies: Abdominal Pain, Constipation, Decreased Appetite Genitourinary: Denies: Dysuria, Frequency Musculoskeletal: Reports: Shoulder Pain, Back Pain Neurological: Reports: Headache. Denies: Numbness, Seizure, Syncope, Tingling, Tremors Psychiatric: Reports: Anxiety. Denies: Confusion, Depression, Agitation - Patient Data Vitals - Most Recent: Last Vital Signs Temp 36.7 C 10/19/19 07:45 Pulse 89 10/19/19 07:45 Resp 18 10/19/19 07:45 BP 120/73 10/19/19 08:19 Pulse Ox 95 10/19/19 07:45 Weight - Most Recent: 63.5 kg I&O - Last 24 Hours: Intake & Output 10/18/19 10/19/19 10/19/19 22:59 06:59 14:59 Intake Total 1877 2251 Output Total 250 530 Balance 1627 1721 Lab Results Last 24 Hours: Laboratory Results - last 24 hr 10/19/19 10/19/19 10/19/19 Range/Units 07:08 07:08 07:08 WBC 10.85 (4.0-11.0) K/uL RBC 3.66 L (4.30-5.90) M/uL Hgb 10.5 L (12.0-16.0) g/dL Hct 32.8 L (36.0-46.0) % MCV 89.6 (80.0-98.0) fL MCH 28.7 (27.0-32.0) pg MCHC 32.0 (31.0-37.0) g/dL RDW Std Deviation 48.2 (28.0-62.0) fl RDW Coeff of Jamil 15 (11.0-15.0) % Plt Count 186 (150-400) K/uL MPV 9.70 (7.40-12.00) fL Neut % (Auto) 71.9 (48.0-80.0) % Lymph % (Auto) 17.1 (16.0-40.0) % [place] % (Auto) 8.3 (0.0-15.0) % Eos % (Auto) 2.5 (0.0-7.0) % Baso % (Auto) 0.2 (0.0-1.5) % Neut # (Auto) 7.8 H (1.4-5.7) K/uL Lymph # (Auto) 1.9 (0.6-2.4) K/uL [place] # (Auto) 0.9 H (0.0-0.8) K/uL Eos # (Auto) 0.3 (0.0-0.7) K/uL Baso # (Auto) 0.0 (0.0-0.1) K/uL Nucleated RBC % 0.0 /100WBC Nucleated RBCs # 0 K/uL Sodium 138 (136-145) mmol/L Potassium 4.4 (3.5-5.1) mmol/L Chloride 106 (98-107) mmol/L Carbon Dioxide 23.7 (21.0-32.0) mmol/L BUN 20 H (7.0-18.0) mg/dL Creatinine 1.1 H (0.6-1.0) mg/dL Est Cr Clr Drug Dosing 52.48 mL/min Estimated GFR (MDRD) 50.2 ml/min Glucose 130 H (74-106) mg/dL Calcium 8.0 L (8.5-10.1) mg/dL Vancomycin Trough 15.5 H (5.0-10.0) ug/mL Ryan Results Last 24 Hours: Microbiology 10/17/19 18:18 Aerobic Blood Culture - Preliminary Blood - Venous - Lab Draw NO GROWTH AFTER 1 DAY Anaerobic Blood Culture - Final 10/17/19 18:06 Aerobic Blood Culture - Preliminary Blood - Venous NO GROWTH AFTER 1 DAY Anaerobic Blood Culture - Preliminary NO GROWTH AFTER 1 DAY Med Orders - Current: Current Medications Acetaminophen (Tylenol) 650 mg PO Q4H PRN PRN Reason: Pain/Fever Last Admin: 10/18/19 22:47 Dose: 650 mg Albuterol/Ipratropium (Duoneb 3.0-0.5 Mg/3 Ml) 3 ml NEB Q4HRRT PRN PRN Reason: Shortness of Breath Last Admin: 10/19/19 10:38 Dose: 3 ml Clonidine HCl (Catapres) 0.1 mg PO BID [facility] Last Admin: 10/19/19 08:19 Dose: 0.1 mg Enoxaparin Sodium (Lovenox) 40 mg SUBCUT Q24H [facility] Last Admin: 10/18/19 18:36 Dose: 40 mg Piperacillin Sod/Tazobactam (Sod 4.5 gm/ Sodium Chloride) 100 mls @ 100 mls/hr IV Q6H [facility] Last Admin: 10/19/19 06:02 Dose: 100 mls/hr Vancomycin HCl 1 gm/ Sodium (Chloride) 250 mls @ 166 mls/hr IV Q12H [facility] Last Admin: 10/19/19 08:12 Dose: 166 mls/hr Sodium Chloride (Normal Saline) 1,000 mls @ 125 mls/hr IV ASDIRECTED [facility] Last Admin: 10/19/19 03:01 Dose: 125 mls/hr Ketorolac Tromethamine (Toradol) 30 mg IVPUSH Q12HR PRN PRN Reason: Pain Stop: 10/23/19 10:20 Last Admin: 10/19/19 00:24 Dose: 30 mg Lisinopril (Prinivil) 10 mg PO DAILY [facility] Last Admin: 10/19/19 08:18 Dose: 10 mg Non-Formulary Medication (Budesonide/Formoterol Fumarate [Symbicort 80-4.5 Mcg] ) 1 puff IH BID [facility] Last Admin: 10/19/19 08:18 Dose: Not Given Non-Formulary Medication (Escitalopram) 20 mg PO DAILY [facility] Last Admin: 10/19/19 08:20 Dose: Not Given Non-Formulary Medication (Umeclidinium [place] [Incruse Ellipta*]) 1 puff INH DAILY [facility] Last Admin: 10/19/19 08:20 Dose: Not Given Ondansetron HCl (Zofran) 4 mg IVPUSH Q4H PRN PRN Reason: Nausea/Vomiting Oxybutynin Chloride (Oxybutynin) 5 mg PO BEDTIME [facility] Last Admin: 10/18/19 20:16 Dose: 5 mg Simvastatin (Zocor) 10 mg PO DAILY [facility] Last Admin: 10/19/19 08:19 Dose: 10 mg Sodium Chloride (Saline Flush) 2.5 ml FLUSH ASDIRECTED PRN PRN Reason: Keep Vein Open Sodium Chloride (Saline Flush) 10 ml FLUSH ASDIRECTED PRN PRN Reason: Keep Vein Open Vancomycin HCl (Pharmacy To Dose - Vancomycin) 1 dose .XX ASDIRECTED [facility] Venlafaxine HCl (Effexor Xr) 75 mg PO DAILY [facility] Last Admin: 10/19/19 08:18 Dose: 75 mg Discontinued Medications Sodium Chloride (Normal Saline) 1,000 mls @ 999 mls/hr IV BOLUS ONE Stop: 10/17/19 17:28 Last Admin: 10/17/19 16:42 Dose: 999 mls/hr Piperacillin Sod/Tazobactam (Sod 3.375 gm/ Sodium Chloride) 50 mls @ 100 mls/ hr IV ONETIME ONE Stop: 10/17/19 17:59 Last Admin: 10/17/19 17:48 Dose: 100 mls/hr Sodium Chloride (Normal Saline) 1,000 mls @ 100 mls/hr IV STAT [facility] Last Admin: 10/17/19 19:45 Dose: 100 mls/hr Vancomycin HCl 1 gm/ Sodium (Chloride) 250 mls @ 166 mls/hr IV Q12H [facility] Last Admin: 10/17/19 19:50 Dose: 166 mls/hr Vancomycin HCl 1 gm/ Sodium (Chloride) 250 mls @ 166 mls/hr IV Q12H [facility] Ketorolac Tromethamine (Toradol) 30 mg IVPUSH ONETIME ONE Stop: 10/17/19 16:38 Last Admin: 10/17/19 16:40 Dose: 30 mg - Exam General: Alert, Oriented Neck: Supple Lungs: Normal Respiratory Effort, Decreased Breath Sounds. No: Crackles Cardiovascular: No: Tachycardia GI/Abdominal Exam: Normal Bowel Sounds, Soft, Non-Tender Back Exam: Normal Inspection, Full Range of Motion Peripheral Pulses: 3+: Dorsalis Pedis (L), Dorsalis Pedis (R) Skin: Warm Sepsis Event Note - Evaluation Sepsis Screening Result: No Definite Risk - Focused Exam Vital Signs: Vital Signs Temp Pulse Resp BP BP Pulse Ox Pulse Ox 10/19/19 08:19 120/73 10/19/19 08:18 120/73 10/19/19 07:45 36.7 C 89 18 120/72 95 10/19/19 06:22 97 10/19/19 03:56 36.3 C 75 20 134/78 96 10/19/19 00:29 37.2 C 79 22 H 140/81 93 L Date Exam was Performed: 10/19/19 Time Exam was Performed: 11:44 - Problem List Review Problem List Initiated/Reviewed/Updated: Yes - Plan Plan:: 1.HCAP with underlying oxygen dependent COPD- white count resolved, will continue to treat with Zosyn and Vanco due to past hx of MRSA infection. Will have duonebs prn. Encourage incentive spirometry. Will obtain sputum culture. COVID negative. Blood cultures pending, negative so far, Patient feels she needs an extra day as she feels worn down and has severe headache and back pain requiring frequent IV Toradol. Will keep patient for another day 2. Chronic conditions- HTN, hyperlipidemia, dep/anxiety- continue home meds
[2019-10-19] MEDS: Acetaminophen 325 MG Tab PO PRN ×2 (12:59→20:05)
[2019-10-19] MEDS: Enoxaparin 40 MG/0.4 ML Syringe SUBCUT SCH (18:10)
[2019-10-19] MEDS: Oxybutynin 5 MG Tab PO SCH (20:07)
[2019-10-20] MEDS: Piperacillin/Tazobactam 4.5 GM in Sodium Chloride 0.9% 100 ML IV SCH ×4 (00:53→18:12)
[2019-10-20] MEDS: Ketorolac 30 MG/ML SDV IVPUSH PRN ×2 (00:54→13:48)
[2019-10-20] MEDS: Acetaminophen 325 MG Tab PO PRN ×2 (03:40→20:42)
[2019-10-20] MEDS: Albuterol/Ipratropium 3.0-0.5 MG/3 ML Neb Soln NEB PRN (04:57)
[2019-10-20] MEDS: Sodium Chloride 0.9% 1,000 ML IV SCH ×2 (06:23→18:11)
[2019-10-20 07:04] LABS: CARBON DIOXIDE,CO2 23.6 mmol/L (21.0-32.0); POTASSIUM,K 4.2 mmol/L (3.5-5.1)
[2019-10-20] MEDS: Escitalopram 10 MG Tab PO SCH (09:07)
[2019-10-20] MEDS: Venlafaxine 75 MG Cap.ER PO SCH (09:07)
[2019-10-20] MEDS: Lisinopril 10 MG Tab PO SCH (09:08)
[2019-10-20] MEDS: Simvastatin 10 MG Tab PO SCH (09:08)
[2019-10-20] MEDS: cloNIDine 0.1 MG Tab PO SCH ×2 (09:08→20:42)
[2019-10-20] MEDS: Non-Formulary Medication 1 Each (Umeclidinium Bromide [Incruse Ellipta*] 1 PUFF) INH SCH ×2 (09:50→12:47)
[2019-10-20] MEDS: BUDESONIDE IH SCH (09:50)
[2019-10-20] MEDS: FORMOTEROL FUMARATE IH SCH (09:50)
[2019-10-20] MEDS: [UNRECOGNIZED DRUG - OTHER] IH SCH (09:50)
[2019-10-20] MEDS: Albuterol/Ipratropium 3.0-0.5 MG/3 ML Neb Soln NEB SCH ×4 (09:52→21:12)
[2019-10-20] MEDS ORDERED: methylPREDNISolone Sodium Succinate 125 MG/2 ML SDV IV ONE (10:00)
[2019-10-20] MEDS: Budesonide/Formoterol 160-4.5 MCG/Puff 6 GM Inhaler INH SCH ×2 (10:11→20:44)
--- NOTE | 2019-10-20 10:13 | PCM.PN ---
- General Info Date of Service: 10/20/19 Subjective Update: Initially this morning, patient felt well and wanted to go home but then the patient developed respiratory distress after getting up and going to the bathroom. She became very wheezy and short of breath, oxygen sat was 91-92% at the time. Duonebs was administered. Patient has been eating and drinking fine. - Review of Systems General: Reports: No Symptoms HEENT: Reports: No Symptoms Pulmonary: Reports: Shortness of Breath, Wheezing Cardiovascular: Reports: No Symptoms Gastrointestinal: Reports: No Symptoms Genitourinary: Reports: No Symptoms Musculoskeletal: Reports: No Symptoms Skin: Reports: No Symptoms Neurological: Reports: No Symptoms Psychiatric: Reports: No Symptoms - Patient Data Vitals - Most Recent: Last Vital Signs Temp 98.8 F 10/20/19 08:00 Pulse 78 10/20/19 08:00 Resp 20 10/20/19 08:00 BP 161/86 H 10/20/19 09:08 Pulse Ox 93 L 10/20/19 08:00 Weight - Most Recent: 63.5 kg I&O - Last 24 Hours: Intake & Output 10/19/19 10/20/19 10/20/19 22:59 06:59 14:59 Intake Total 2326 2046 Output Total 1200 1400 Balance 1126 646 Lab Results Last 24 Hours: Laboratory Results - last 24 hr 10/20/19 10/20/19 Range/Units 05:51 06:34 WBC 11.68 H (4.0-11.0) K/uL RBC 3.80 L (4.30-5.90) M/uL Hgb 10.8 L (12.0-16.0) g/dL Hct 33.8 L (36.0-46.0) % MCV 88.9 (80.0-98.0) fL MCH 28.4 (27.0-32.0) pg MCHC 32.0 (31.0-37.0) g/dL RDW Std Deviation 48.0 (28.0-62.0) fl RDW Coeff of Jamil 15 (11.0-15.0) % Plt Count 195 (150-400) K/uL MPV 10.00 (7.40-12.00) fL Neut % (Auto) 72.6 (48.0-80.0) % Lymph % (Auto) 15.7 L (16.0-40.0) % [place] % (Auto) 8.4 (0.0-15.0) % Eos % (Auto) 3.1 (0.0-7.0) % Baso % (Auto) 0.2 (0.0-1.5) % Neut # (Auto) 8.5 H (1.4-5.7) K/uL Lymph # (Auto) 1.8 (0.6-2.4) K/uL [place] # (Auto) 1.0 H (0.0-0.8) K/uL Eos # (Auto) 0.4 (0.0-0.7) K/uL Baso # (Auto) 0.0 (0.0-0.1) K/uL Nucleated RBC % 0.0 /100WBC Nucleated RBCs # 0 K/uL Sodium 140 (136-145) mmol/L Potassium 4.2 (3.5-5.1) mmol/L Chloride 107 (98-107) mmol/L Carbon Dioxide 23.6 (21.0-32.0) mmol/L BUN 18 (7.0-18.0) mg/dL Creatinine 1.1 H (0.6-1.0) mg/dL Est Cr Clr Drug Dosing 52.48 mL/min Estimated GFR (MDRD) 50.2 ml/min Glucose 105 (74-106) mg/dL Calcium 8.5 (8.5-10.1) mg/dL Ryan Results Last 24 Hours: Microbiology 10/17/19 18:18 Aerobic Blood Culture - Preliminary Blood - Venous - Lab Draw NO GROWTH AFTER 2 DAYS Anaerobic Blood Culture - Final 10/17/19 18:06 Aerobic Blood Culture - Preliminary Blood - Venous NO GROWTH AFTER 2 DAYS Anaerobic Blood Culture - Preliminary NO GROWTH AFTER 2 DAYS Med Orders - Current: Current Medications Acetaminophen (Tylenol) 650 mg PO Q4H PRN PRN Reason: Pain/Fever Last Admin: 10/20/19 03:40 Dose: 650 mg Albuterol/Ipratropium (Duoneb 3.0-0.5 Mg/3 Ml) 3 ml NEB Q4HRRT [facility] Last Admin: 10/20/19 09:52 Dose: 3 ml Azithromycin (Zithromax) 500 mg PO Q24H [facility] Budesonide/Formoterol Fumarate (Symbicort 160-4.5 Mcg) 1 gm INH BIDRT [facility] Clonidine HCl (Catapres) 0.1 mg PO BID [facility] Last Admin: 10/20/19 09:08 Dose: 0.1 mg Enoxaparin Sodium (Lovenox) 40 mg SUBCUT Q24H [facility] Last Admin: 10/19/19 18:10 Dose: 40 mg Escitalopram Oxalate (Lexapro) 20 mg PO DAILY [facility] Last Admin: 10/20/19 09:07 Dose: 20 mg Piperacillin Sod/Tazobactam (Sod 4.5 gm/ Sodium Chloride) 100 mls @ 100 mls/hr IV Q6H [facility] Last Admin: 10/20/19 06:22 Dose: 100 mls/hr Vancomycin HCl 1 gm/ Sodium (Chloride) 250 mls @ 166 mls/hr IV Q12H [facility] Last Admin: 10/20/19 08:15 Dose: 166 mls/hr Sodium Chloride (Normal Saline) 1,000 mls @ 125 mls/hr IV ASDIRECTED [facility] Last Admin: 10/20/19 06:23 Dose: 125 mls/hr Ketorolac Tromethamine (Toradol) 30 mg IVPUSH Q12HR PRN PRN Reason: Pain Stop: 10/23/19 10:20 Last Admin: 10/20/19 00:54 Dose: 30 mg Lisinopril (Prinivil) 10 mg PO DAILY [facility] Last Admin: 10/20/19 09:08 Dose: 10 mg Non-Formulary Medication (Umeclidinium [place] [Incruse Ellipta*]) 1 puff INH DAILY [facility] Last Admin: 10/20/19 09:50 Dose: Not Given Ondansetron HCl (Zofran) 4 mg IVPUSH Q4H PRN PRN Reason: Nausea/Vomiting Oxybutynin Chloride (Oxybutynin) 5 mg PO BEDTIME [facility] Last Admin: 10/19/19 20:07 Dose: 5 mg Simvastatin (Zocor) 10 mg PO DAILY [facility] Last Admin: 10/20/19 09:08 Dose: 10 mg Sodium Chloride (Saline Flush) 2.5 ml FLUSH ASDIRECTED PRN PRN Reason: Keep Vein Open Sodium Chloride (Saline Flush) 10 ml FLUSH ASDIRECTED PRN PRN Reason: Keep Vein Open Vancomycin HCl (Pharmacy To Dose - Vancomycin) 1 dose .XX ASDIRECTED [facility] Venlafaxine HCl (Effexor Xr) 75 mg PO DAILY [facility] Last Admin: 10/20/19 09:07 Dose: 75 mg Discontinued Medications Albuterol/Ipratropium (Duoneb 3.0-0.5 Mg/3 Ml) 3 ml NEB Q4HRRT PRN PRN Reason: Shortness of Breath Last Admin: 10/20/19 04:57 Dose: 3 ml Sodium Chloride (Normal Saline) 1,000 mls @ 999 mls/hr IV BOLUS ONE Stop: 10/17/19 17:28 Last Admin: 10/17/19 16:42 Dose: 999 mls/hr Piperacillin Sod/Tazobactam (Sod 3.375 gm/ Sodium Chloride) 50 mls @ 100 mls/ hr IV ONETIME ONE Stop: 10/17/19 17:59 Last Admin: 10/17/19 17:48 Dose: 100 mls/hr Sodium Chloride (Normal Saline) 1,000 mls @ 100 mls/hr IV STAT [facility] Last Admin: 10/17/19 19:45 Dose: 100 mls/hr Vancomycin HCl 1 gm/ Sodium (Chloride) 250 mls @ 166 mls/hr IV Q12H [facility] Last Admin: 10/17/19 19:50 Dose: 166 mls/hr Vancomycin HCl 1 gm/ Sodium (Chloride) 250 mls @ 166 mls/hr IV Q12H [facility] Ketorolac Tromethamine (Toradol) 30 mg IVPUSH ONETIME ONE Stop: 10/17/19 16:38 Last Admin: 10/17/19 16:40 Dose: 30 mg Methylprednisolone Sodium Succinate (Solu-Medrol) 80 mg IV ONETIME ONE Stop: 10/20/19 10:01 Non-Formulary Medication (Budesonide/Formoterol Fumarate [Symbicort 80-4.5 Mcg] ) 1 puff IH BID [facility] Last Admin: 10/20/19 09:50 Dose: Not Given Non-Formulary Medication (Escitalopram) 20 mg PO DAILY [facility] Last Admin: 10/19/19 08:20 Dose: Not Given - Exam Quality Assessment: Supplemental Oxygen General: Alert, Oriented, Cooperative Lungs: Wheezing. No: Normal Respiratory Effort Cardiovascular: Regular Rate, Regular Rhythm GI/Abdominal Exam: Normal Bowel Sounds, Soft, Non-Tender, No Distention Extremities: No Pedal Edema Skin: Warm, Dry Neurological: No New Focal Deficit Psy/Mental Status: Alert, Normal Affect, Normal Mood Sepsis Event Note - Evaluation Sepsis Screening Result: No Definite Risk - Focused Exam Vital Signs: Vital Signs Temp Pulse Resp BP BP Pulse Ox 10/20/19 09:08 161/86 H 10/20/19 08:00 98.8 F 78 20 161/86 H 93 L 10/20/19 03:40 97.8 F 63 20 157/86 H 97 10/19/19 23:12 98 F 84 20 154/87 H 95 Date Exam was Performed: 10/20/19 Time Exam was Performed: 10:08 - Problem List Review Problem List Initiated/Reviewed/Updated: Yes - My Orders Last 24 Hours: My Active Orders 10/20/19 08:13 Escitalopram [Lexapro] 20 mg PO DAILY 10/20/19 10:15 Budesonide/Formoterol [Symbicort 160-4.5 MCG] 1 gm INH BIDRT - Plan Plan:: 1.HCAP with underlying oxygen dependent COPD- developed respiratory distress this AM. Switched duonebs to scheduled, given IV steroids, will continue to treat with Zosyn and Vanco and add Azithromycin. Will try to have someone bring home inhalers in as we don't carry them in the pharmacy. Encourage incentive spirometry. Will obtain sputum culture. COVID negative. Blood cultures negative. 2. Chronic conditions- HTN, hyperlipidemia, dep/anxiety- continue home meds
[2019-10-20] MEDS: Azithromycin 250 MG Tab PO SCH (10:26)
[2019-10-20] MEDS: Enoxaparin 40 MG/0.4 ML Syringe SUBCUT SCH (18:11)
[2019-10-20] MEDS: Oxybutynin 5 MG Tab PO SCH (20:42)
[2019-10-20] MEDS ORDERED: Calcium Carbonate 500 MG Tab.Chew PO PRN (22:11)
[2019-10-21] MEDS: Piperacillin/Tazobactam 4.5 GM in Sodium Chloride 0.9% 100 ML IV SCH ×2 (00:32→07:31)
[2019-10-21] MEDS: Albuterol/Ipratropium 3.0-0.5 MG/3 ML Neb Soln NEB SCH ×3 (03:37→09:30)
[2019-10-21] MEDS: Ketorolac 30 MG/ML SDV IVPUSH PRN (03:38)
[2019-10-21 06:06] LABS: CARBON DIOXIDE,CO2 22.8 mmol/L (21.0-32.0); POTASSIUM,K 4.6 mmol/L (3.5-5.1)
[2019-10-21] MEDS: Budesonide/Formoterol 160-4.5 MCG/Puff 6 GM Inhaler INH SCH (07:33)
[2019-10-21] MEDS: Acetaminophen 325 MG Tab PO PRN (07:53)
[2019-10-21] MEDS: cloNIDine 0.1 MG Tab PO SCH ×2 (07:55→08:12)
[2019-10-21] MEDS: Lisinopril 10 MG Tab PO SCH ×2 (07:55→08:13)
[2019-10-21] MEDS: Escitalopram 10 MG Tab PO SCH ×2 (07:56→08:13)
[2019-10-21] MEDS: Simvastatin 10 MG Tab PO SCH ×2 (07:56→08:13)
[2019-10-21] MEDS: Venlafaxine 75 MG Cap.ER PO SCH ×2 (07:57→08:13)
[2019-10-21] MEDS ORDERED: methylPREDNISolone Sodium Succinate 40 MG/1 ML SDV IVPUSH SCH (09:00)
[2019-10-21] MEDS: Non-Formulary Medication 1 Each (Umeclidinium Bromide [Incruse Ellipta*] 1 PUFF) INH SCH (09:30)
[2019-10-21 09:40] VITALS: BP 153/83; PULSE 84
--- NOTE | 2019-10-21 09:47 | PCM.DCSUM1 ---
Discharge Summary - Hospital Course HPI Initial Comments: Admission Date: 10/17/19 Discharge Date: 10/21/19 Admission Diagnosis: 1. Pneumonia in oxygen dependent COPD 2. Chronic conditions- HTN, hyperlipidemia, depression/anxiety Discharge Diagnosis: 1. HCAP in oxygen dependent COPD 2. Chronic conditions- HTN, hyperlipidemia, depression/anxiety Procedures: None Consults: None Hospital Course: The patient is a 64 year old female with past medical history of oxygen dependent COPD, HTN, GERD, and treated Hep C who presented to the ER with right sided chest pain, shortness of breath, cough, and fever/chills. In the ER, labs revealed leukocytosis of 17, no anemia, elevated BUN/Cr of 24/1.2 ( her baseline based on previous labs), negative troponin, negative COIVD. CXR showed right upper lung density consistent with pneumonia. In the ER her vitals were stable and she was at her baseline oxygen requirement of 2L. She was given Zosyn, IVF, and Toradol in the ER. She was admitted to the medical floor and treated with IV antibiotics- Zosyn and Vancomycin and Azithromycin for the infection. She was also started on IV steroids for COPD exacerbation. Over the course of the admission, she remained afebrile, and didnt require any oxygen above her baseline requirement. She was continued on her home meds for chronic conditions. By day of discharge, she reported improvement in symptoms and was requesting discharge. Disposition: Home Discharge Condition: vitals stable, tolerating oral diet, ambulating without difficulty, symptom improvement Discharge Instructions: regular diet as tolerated, activity as tolerated, take medications as prescribed. Symptoms to report to physician include fever/chills , chest pain, shortness of breath, abdominal pain, erythema, drainage/discharge , increased oxygen requirement, or not improving as expected. Discharge Medications: Albuterol [Proventil HFA] 1 puff INH QID PRN Albuterol/Ipratropium [DuoNeb 3.0-0.5 MG/3 ML] 3 ml NEB Q8HR PRN Venlafaxine HCl [Venlafaxine ER] 75 mg PO DAILY cloNIDine [Catapres] 0.1 mg PO BID Umeclidinium Stebbins [Incruse Ellipta*] 1 puff IH DAILY Varenicline Tartrate [Chantix] 1 mg PO BID Albuterol Sulfate [Albuterol Sulfate Hfa] 2 puff INH ASDIRECTED PRN Albuterol [Ventolin HFA] 2 puff INH ASDIRECTED PRN Escitalopram [Lexapro] 20 mg PO DAILY Oxybutynin 5 mg PO BEDTIME lisinopriL [Zestril] 10 mg PO DAILY Sucralfate [Carafate] 1 gm PO QIDACANDBED Ibuprofen 200 mg PO ASDIRECTED PRN Simvastatin [Zocor] 10 mg PO DAILY diphenhydrAMINE HCL [Diphenhydramine HCl] 25 mg PO BEDTIME Budesonide/Formoterol [Symbicort 160-4.5 MCG] 2 inh IH BID levoFLOXacin [Levaquin] 750 mg PO DAILY predniSONE [Prednisone] 40 mg PO DAILY Follow-up: 1. PCP- Dr. Bran - Discharge Data Discharge Date: 10/21/19 Discharge Disposition: Home, Self-Care 01 Condition: Stable - Referral to Home Health Primary Care Physician: Elda Bran MD - Patient Instructions Diet: Usual Diet as Tolerated Activity: As Tolerated Showering/Bathing: May Shower Notify Provider of: Fever, Increased Pain, Swelling and Redness, Drainage, Nausea and/or Vomiting Other/Special Instructions: Additional symptoms include chest pain, shortness of breath, abdominal pain, or increased oxygen requirement. - Discharge Plan *PRESCRIPTION DRUG MONITORING PROGRAM REVIEWED*: No *COPY OF PRESCRIPTION DRUG MONITORING REPORT IN PATIENT KARIE: No Prescriptions/Med Rec: levoFLOXacin [Levaquin] 750 mg PO DAILY 3 Days #3 tab predniSONE [Prednisone] 40 mg PO DAILY 3 Days #6 tablet Home Medications: Home Meds Albuterol [Proventil HFA] 1 puff INH QID PRN 09/22/18 [History] Albuterol/Ipratropium [DuoNeb 3.0-0.5 MG/3 ML] 3 ml NEB Q8HR PRN 09/22/18 [ History] Venlafaxine HCl [Venlafaxine ER] 75 mg PO DAILY 09/22/18 [History] cloNIDine [Catapres] 0.1 mg PO BID 09/22/18 [History] Umeclidinium Stebbins [Incruse Ellipta*] 1 puff IH DAILY 05/19/19 [History] Varenicline Tartrate [Chantix] 1 mg PO BID 05/19/19 [History] Albuterol Sulfate [Albuterol Sulfate Hfa] 2 puff INH ASDIRECTED PRN 08/06/19 [ History] Albuterol [Ventolin HFA] 2 puff INH ASDIRECTED PRN 08/06/19 [History] Escitalopram [Lexapro] 20 mg PO DAILY 08/06/19 [History] Oxybutynin 5 mg PO BEDTIME 08/06/19 [History] lisinopriL [Zestril] 10 mg PO DAILY 08/06/19 [History] Sucralfate [Carafate] 1 gm PO QIDACANDBED #120 tablet 08/08/19 [Rx] Ibuprofen 200 mg PO ASDIRECTED PRN 09/01/19 [History] Simvastatin [Zocor] 10 mg PO DAILY 09/01/19 [History] diphenhydrAMINE HCL [Diphenhydramine HCl] 25 mg PO BEDTIME 09/01/19 [History] Budesonide/Formoterol [Symbicort 160-4.5 MCG] 2 inh IH BID 10/20/19 [History] levoFLOXacin [Levaquin] 750 mg PO DAILY 3 Days #3 tab 10/21/19 [Rx] predniSONE [Prednisone] 40 mg PO DAILY 3 Days #6 tablet 10/21/19 [Rx] Oxygen Therapy Mode: Nasal Cannula Patient Handouts: Community-Acquired Pneumonia, Adult, [id number] Referrals: Elda Bran MD [Primary Care Provider] - 10/29/19 3:15 pm - Discharge Summary/Plan Comment DC Time >30 min.: No - Patient Data Vitals - Most Recent: Last Vital Signs Temp 97.6 F 10/21/19 07:52 Pulse 84 10/21/19 09:40 Resp 22 H 10/21/19 07:52 BP 153/83 H 10/21/19 09:40 Pulse Ox 96 10/21/19 07:52 Weight - Most Recent: 63.5 kg I&O - Last 24 hours: Intake & Output 10/20/19 10/21/19 10/21/19 22:59 06:59 14:59 Intake Total 1527 370 Output Total 800 Balance 727 370 Lab Results - Last 24 hrs: Laboratory Results - last 24 hr 05/12/20 05/12/20 05/12/20 Range/Units 05:40 05:40 07:45 WBC 14.66 H (4.0-11.0) K/uL RBC 3.86 L (4.30-5.90) M/uL Hgb 10.6 L (12.0-16.0) g/dL Hct 33.7 L (36.0-46.0) % MCV 87.3 (80.0-98.0) fL MCH 27.5 (27.0-32.0) pg MCHC 31.5 (31.0-37.0) g/dL RDW Std Deviation 46.1 (28.0-62.0) fl RDW Coeff of Jamil 14 (11.0-15.0) % Plt Count 213 (150-400) K/uL MPV 9.30 (7.40-12.00) fL Neut % (Auto) 87.7 H (48.0-80.0) % Lymph % (Auto) 7.2 L (16.0-40.0) % Woods % (Auto) 5.1 (0.0-15.0) % Eos % (Auto) 0.0 (0.0-7.0) % Baso % (Auto) 0.0 (0.0-1.5) % Neut # (Auto) 12.9 H (1.4-5.7) K/uL Lymph # (Auto) 1.1 (0.6-2.4) K/uL [place] # (Auto) 0.8 (0.0-0.8) K/uL Eos # (Auto) 0.0 (0.0-0.7) K/uL Baso # (Auto) 0.0 (0.0-0.1) K/uL Nucleated RBC % 0.0 /100WBC Nucleated RBCs # 0 K/uL Sodium 139 (136-145) mmol/L Potassium 4.6 (3.5-5.1) mmol/L Chloride 106 (98-107) mmol/L Carbon Dioxide 22.8 (21.0-32.0) mmol/L BUN 17 (7.0-18.0) mg/dL Creatinine 1.1 H (0.6-1.0) mg/dL Est Cr Clr Drug Dosing 52.48 mL/min Estimated GFR (MDRD) 50.2 ml/min Glucose 127 H (74-106) mg/dL Calcium 8.9 (8.5-10.1) mg/dL Vancomycin Trough 18.9 H (5.0-10.0) ug/mL RYLEE Results - Last 24 hrs: Microbiology 10/17/19 18:18 Aerobic Blood Culture - Preliminary Blood - Venous - Lab Draw NO GROWTH AFTER 3 DAYS Anaerobic Blood Culture - Final 10/17/19 18:06 Aerobic Blood Culture - Preliminary Blood - Venous NO GROWTH AFTER 3 DAYS Anaerobic Blood Culture - Preliminary NO GROWTH AFTER 3 DAYS Med Orders - Current: Current Medications Acetaminophen (Tylenol) 650 mg PO Q4H PRN PRN Reason: Pain/Fever Last Admin: 10/21/19 07:53 Dose: 650 mg Albuterol/Ipratropium (Duoneb 3.0-0.5 Mg/3 Ml) 3 ml NEB Q4HRRT [facility] Last Admin: 10/21/19 09:30 Dose: 3 ml Azithromycin (Zithromax) 500 mg PO Q24H [facility] Last Admin: 10/20/19 10:26 Dose: 500 mg Budesonide/Formoterol Fumarate (Symbicort 160-4.5 Mcg) 1 gm INH BIDRT [facility] Last Admin: 10/21/19 07:33 Dose: 1 inhalation Calcium Carbonate/Glycine (Tums) 500 mg PO TID PRN PRN Reason: Heartburn Last Admin: 10/20/19 22:25 Dose: 500 mg Clonidine HCl (Catapres) 0.1 mg PO BID [facility] Last Admin: 10/21/19 08:12 Dose: Not Given Enoxaparin Sodium (Lovenox) 40 mg SUBCUT Q24H [facility] Last Admin: 10/20/19 18:11 Dose: 40 mg Escitalopram Oxalate (Lexapro) 20 mg PO DAILY [facility] Last Admin: 10/21/19 08:13 Dose: Not Given Piperacillin Sod/Tazobactam (Sod 4.5 gm/ Sodium Chloride) 100 mls @ 100 mls/hr IV Q6H [facility] Last Admin: 10/21/19 07:31 Dose: 100 mls/hr Vancomycin HCl 1 gm/ Sodium (Chloride) 250 mls @ 166 mls/hr IV Q12H [facility] Last Admin: 10/21/19 08:48 Dose: 166 mls/hr Ketorolac Tromethamine (Toradol) 30 mg IVPUSH Q12HR PRN PRN Reason: Pain Stop: 10/23/19 10:20 Last Admin: 10/21/19 03:38 Dose: 30 mg Lisinopril (Prinivil) 10 mg PO DAILY [facility] Last Admin: 10/21/19 08:13 Dose: Not Given Methylprednisolone Sodium Succinate (Solu-Medrol) 80 mg IVPUSH DAILY [facility] Last Admin: 10/21/19 08:11 Dose: 80 mg Non-Formulary Medication (Umeclidinium Stebbins [Incruse Ellipta*]) 1 puff INH DAILY [facility] Last Admin: 10/21/19 09:30 Dose: 1 puff Ondansetron HCl (Zofran) 4 mg IVPUSH Q4H PRN PRN Reason: Nausea/Vomiting Oxybutynin Chloride (Oxybutynin) 5 mg PO BEDTIME [facility] Last Admin: 10/20/19 20:42 Dose: 5 mg Simvastatin (Zocor) 10 mg PO DAILY [facility] Last Admin: 10/21/19 08:13 Dose: Not Given Sodium Chloride (Saline Flush) 2.5 ml FLUSH ASDIRECTED PRN PRN Reason: Keep Vein Open Sodium Chloride (Saline Flush) 10 ml FLUSH ASDIRECTED PRN PRN Reason: Keep Vein Open Vancomycin HCl (Pharmacy To Dose - Vancomycin) 1 dose .XX ASDIRECTED [facility] Venlafaxine HCl (Effexor Xr) 75 mg PO DAILY [facility] Last Admin: 10/21/19 08:13 Dose: Not Given Discontinued Medications Albuterol/Ipratropium (Duoneb 3.0-0.5 Mg/3 Ml) 3 ml NEB Q4HRRT PRN PRN Reason: Shortness of Breath Last Admin: 10/20/19 04:57 Dose: 3 ml Sodium Chloride (Normal Saline) 1,000 mls @ 999 mls/hr IV BOLUS ONE Stop: 10/17/19 17:28 Last Admin: 10/17/19 16:42 Dose: 999 mls/hr Piperacillin Sod/Tazobactam (Sod 3.375 gm/ Sodium Chloride) 50 mls @ 100 mls/ hr IV ONETIME ONE Stop: 10/17/19 17:59 Last Admin: 10/17/19 17:48 Dose: 100 mls/hr Sodium Chloride (Normal Saline) 1,000 mls @ 100 mls/hr IV STAT [facility] Last Admin: 10/17/19 19:45 Dose: 100 mls/hr Vancomycin HCl 1 gm/ Sodium (Chloride) 250 mls @ 166 mls/hr IV Q12H [facility] Last Admin: 10/17/19 19:50 Dose: 166 mls/hr Vancomycin HCl 1 gm/ Sodium (Chloride) 250 mls @ 166 mls/hr IV Q12H [facility] Sodium Chloride (Normal Saline) 1,000 mls @ 125 mls/hr IV ASDIRECTED [facility] Last Admin: 10/20/19 18:11 Dose: 125 mls/hr Ketorolac Tromethamine (Toradol) 30 mg IVPUSH ONETIME ONE Stop: 10/17/19 16:38 Last Admin: 10/17/19 16:40 Dose: 30 mg Methylprednisolone Sodium Succinate (Solu-Medrol) 80 mg IV ONETIME ONE Stop: 10/20/19 10:01 Last Admin: 10/20/19 10:13 Dose: 80 mg Non-Formulary Medication (Budesonide/Formoterol Fumarate [Symbicort 80-4.5 Mcg] ) 1 puff IH BID [facility] Last Admin: 10/20/19 09:50 Dose: Not Given Non-Formulary Medication (Escitalopram) 20 mg PO DAILY [facility] Last Admin: 10/19/19 08:20 Dose: Not Given
[2019-10-21] MEDS: Azithromycin 250 MG Tab PO SCH (10:42)
== END 2019-10-21 12:20 | disposition home or self-care (01) | DRG 194 ==
LOC: MW.ED 16:20 → OBSVTOIN 17:56 → MW.MS 17:56
PROVIDERS: ADMIT Student in an Organized Health Care Education/Training Program; ATTEND Student in an Organized Health Care Education/Training Program
PROC: 8E0ZXY6 Isolation (ICD-10-PCS; principal; 2019-10-17)
DX: J18.9 Pneumonia, unspecified organism (principal); J44.1 Chronic obstructive pulmonary disease with (acute) exacerbation; J44.0 Chronic obstructive pulmonary disease with (acute) lower respiratory infection; K57.90 Diverticulosis of intestine, part unspecified, without perforation or abscess without bleeding; I10 Essential (primary) hypertension; E78.5 Hyperlipidemia, unspecified; K21.9 Gastro-esophageal reflux disease without esophagitis; F41.9 Anxiety disorder, unspecified; F32.9 Major depressive disorder, single episode, unspecified; Z86.19 Personal history of other infectious and parasitic diseases; Z79.51 Long term (current) use of inhaled steroids; Z79.899 Other long term (current) drug therapy; Z79.52 Long term (current) use of systemic steroids; Y95 Nosocomial condition; Z99.81 Dependence on supplemental oxygen; Z87.891 Personal history of nicotine dependence; Z20.828 Contact with and (suspected) exposure to other viral communicable diseases; Z87.442 Personal history of urinary calculi
CPT/HCPCS: 36415; 71101; 80053; 83735; 84100; 84484; 85025; 85610; 93005; 96365; 96375; 99285; J1885; J2543; J7030; J7050; 80048; 80202; 81003; 87040; 94640; 99283; A9270-GY; J1650; J2920; J2930; J3370; J7620-GY; U0002

== ENCOUNTER 2019-11-13 21:03 | Inpatient (IN) | payer MEDICARE, MEDICAID ==
[2019-11-13] MEDS ORDERED: Sodium Chloride 0.9% 1,000 ML IV ONE (21:32)
[2019-11-13] MEDS ORDERED: Sodium Chloride 0.9% 10 ML Syringe FLUSH PRN (21:32)
[2019-11-13] MEDS ORDERED: Sodium Chloride 0.9% 2.5 ML Syringe FLUSH PRN ×2 (21:32)
[2019-11-13] MEDS ORDERED: Ondansetron 4 MG/2 ML SDV IVPUSH ONE (21:32)
[2019-11-13] MEDS ORDERED: Dicyclomine 10 MG Cap PO ONE (21:33)
--- NOTE | 2019-11-13 21:35 | EDM.PDOC ---
ED HPI GENERAL MEDICAL PROBLEM - General Chief Complaint: Gastrointestinal Problem Stated Complaint: ABDOMINAL PAIN,BLOODY STOOL Time Seen by Provider: 11/13/19 21:12 - History of Present Illness INITIAL COMMENTS - FREE TEXT/NARRATIVE: History of present illness: [Notes with 1 day of lower abdominal cramping pain and dark red stools she states she had crampy pain that came on suddenly with some nausea she threw up once and had multiple episodes of bloody diarrhea no foreign travel she has not had this problem before no fever no chills there was some nausea and vomiting but this is past no prior surgeries nothing seems to make it better or worse] Review of systems: As per history of present illness and below otherwise all systems reviewed and negative. Past medical history: As per history of present illness and as reviewed below otherwise noncontributory. Surgical history: As per history of present illness and as reviewed below otherwise noncontributory. Social history: No reported history of drug or alcohol abuse. Family history: As per history of present illness and as reviewed below otherwise noncontributory. Physical exam: HEENT: Atraumatic, normocephalic, pupils reactive, negative for conjunctival pallor or scleral icterus, mucous membranes moist, throat clear, neck supple, nontender, trachea midline. Lungs: Clear to auscultation, breath sounds equal bilaterally, chest nontender. Heart: S1S2, regular, negative for clicks, rubs, or JVD. Abdomen: Soft, nondistended, diffuse abdominal tenderness that seems to be worse in the left upper and lower quadrants. Negative for masses or hepatosplenomegaly. Negative for costovertebral tenderness. Pelvis: Stable nontender. Genitourinary: Deferred. Rectal: No lesions normal tone no gross blood no stool the Hemoccult was trace positive. Extremities: Atraumatic, negative for cords or calf pain. Neurovascular unremarkable. Neuro: Awake, alert, oriented. Cranial nerves II through XII unremarkable. Cerebellum unremarkable. Motor and sensory unremarkable throughout. Exam nonfocal. Diagnostics: [] Therapeutics: [] Impression: Abdominal pain and hematochezia [] Plan: Labs CT abdomen and pelvis reassess [] Definitive disposition and diagnosis as appropriate pending reevaluation and review of above. Abdomen Pain Score (Numeric/FACES): 8 - Related Data Allergies Allergy/AdvReac Type Severity Reaction Status Date / Time No Known Allergies Allergy Verified 11/13/19 21:20 Home Meds: Home Meds Albuterol [Proventil HFA] 1 puff INH QID PRN 09/22/18 [History] Albuterol/Ipratropium [DuoNeb 3.0-0.5 MG/3 ML] 3 ml NEB Q8HR PRN 09/22/18 [ History] Venlafaxine HCl [Venlafaxine ER] 75 mg PO DAILY 09/22/18 [History] cloNIDine [Catapres] 0.1 mg PO BID 09/22/18 [History] Umeclidinium Addison [Incruse Ellipta*] 1 puff IH DAILY 05/19/19 [History] Varenicline Tartrate [Chantix] 1 mg PO BID 05/19/19 [History] Albuterol Sulfate [Albuterol Sulfate Hfa] 2 puff INH ASDIRECTED PRN 08/06/19 [ History] Albuterol [Ventolin HFA] 2 puff INH ASDIRECTED PRN 08/06/19 [History] Escitalopram [Lexapro] 20 mg PO DAILY 08/06/19 [History] Oxybutynin 5 mg PO BEDTIME 08/06/19 [History] lisinopriL [Zestril] 10 mg PO DAILY 08/06/19 [History] Sucralfate [Carafate] 1 gm PO QIDACANDBED #120 tablet 08/08/19 [Rx] Ibuprofen 200 mg PO ASDIRECTED PRN 09/01/19 [History] Simvastatin [Zocor] 10 mg PO DAILY 09/01/19 [History] diphenhydrAMINE HCL [Diphenhydramine HCl] 25 mg PO BEDTIME 09/01/19 [History] Budesonide/Formoterol [Symbicort 160-4.5 MCG] 2 inh IH BID 10/20/19 [History] levoFLOXacin [Levaquin] 750 mg PO DAILY 3 Days #3 tab 10/21/19 [Rx] predniSONE [Prednisone] 40 mg PO DAILY 3 Days #6 tablet 10/21/19 [Rx] Past Medical History - Past Health History Medical/Surgical History: Denies Medical/Surgical History HEENT History: Reports: None Cardiovascular History: Reports: Hypertension Respiratory History: Reports: COPD, Other (See Below) Other Respiratory History: Home O2 @ 2LPM Gastrointestinal History: Reports: Diverticulosis Genitourinary History: Reports: Other (See Below) Other Genitourinary History: kidney stones [employer]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: Musculoskeletal History: Reports: None Neurological History: Reports: None Psychiatric History: Reports: Addiction, Anxiety, Depression Endocrine/Metabolic History: Reports: None Hematologic History: Reports: None Immunologic History: Reports: None Oncologic (Cancer) History: Reports: None Dermatologic History: Reports: None - Infectious Disease History Infectious Disease History: Reports: Hepatitis C Other Infectious Disease History: unsure of which kind of hepatitis - Past Surgical History Head Surgeries/Procedures: Reports: None HEENT Surgical History: Reports: None Cardiovascular Surgical History: Reports: None Respiratory Surgical History: Reports: None GI Surgical History: Reports: Appendectomy Female Surgical History: Reports: None Endocrine Surgical History: Reports: None Neurological Surgical History: Reports: None Musculoskeletal Surgical History: Reports: Other (See Below) Other Musculoskeletal Surgeries/Procedures:: rt shoulder surg Oncologic Surgical History: Reports: None Dermatological Surgical History: Reports: None Social & Family History - Family History Family Medical History: Noncontributory Respiratory: Reports: Asthma, COPD : Reports: Renal Disease/Insufficiency Psychiatric: Reports: Anxiety, Depression Endocrine/Metabolic: Reports: Diabetes, type II Oncologic: Reports: Hodgkin's Lymphoma - Caffeine Use Caffeine Use: Reports: None Caffeine Use Comment: 5 cups avg per day - Living Situation & Occupation Living situation: Reports: Single ED ROS GENERAL - Review of Systems Review Of Systems: See Below ED EXAM, GENERAL - Physical Exam Exam: See Below Course - Vital Signs Text/Narrative:: Patient's H&H and vital signs are stable however she has worsening renal failure wanted to put her in the hospital with volume depletion and evaluation of her GI bleed. Discussed the case with Dr. King at 11:45 PM he will admit the patient. Last Recorded V/S: Last Vital Signs Temp 36.1 C 11/13/19 21:20 Pulse 84 11/13/19 22:53 Resp 18 11/13/19 22:53 BP 106/58 L 11/13/19 22:53 Pulse Ox 95 11/13/19 22:53 - Orders/Labs/Meds Orders: Active Orders 24 hr Category Date Time Status Sodium Chloride 0.9% [Saline Flush] Med 11/13/19 21:32 Active 10 ml FLUSH ASDIRECTED PRN Sodium Chloride 0.9% [Saline Flush] Med 11/13/19 21:32 Active 2.5 ml FLUSH ASDIRECTED PRN Sodium Chloride 0.9% [Saline Flush] Med 11/13/19 21:32 Active 2.5 ml FLUSH ASDIRECTED PRN Saline Lock Insert [OM.PC] Stat Oth 11/13/19 21:32 Ordered Medication Orders Sodium Chloride (Saline Flush) 2.5 ml FLUSH ASDIRECTED PRN PRN Reason: Keep Vein Open Sodium Chloride (Saline Flush) 10 ml FLUSH ASDIRECTED PRN PRN Reason: Keep Vein Open Sodium Chloride (Saline Flush) 2.5 ml FLUSH ASDIRECTED PRN PRN Reason: Keep Vein Open Labs: Laboratory Tests 11/13/19 11/13/19 11/13/19 Range/Units 21:30 21:30 21:30 WBC 13.62 H (4.0-11.0) K/uL RBC 4.40 (4.30-5.90) M/uL Hgb 12.3 (12.0-16.0) g/dL Hct 37.6 (36.0-46.0) % MCV 85.5 (80.0-98.0) fL MCH 28.0 (27.0-32.0) pg MCHC 32.7 (31.0-37.0) g/dL RDW Std Deviation 44.8 (28.0-62.0) fl RDW Coeff of Jamil 14 (11.0-15.0) % Plt Count 261 (150-400) K/uL MPV 9.50 (7.40-12.00) fL Neut % (Auto) 76.2 (48.0-80.0) % Lymph % (Auto) 14.8 L (16.0-40.0) % [place] % (Auto) 8.1 (0.0-15.0) % Eos % (Auto) 0.8 (0.0-7.0) % Baso % (Auto) 0.1 (0.0-1.5) % Neut # (Auto) 10.4 H (1.4-5.7) K/uL Lymph # (Auto) 2.0 (0.6-2.4) K/uL [place] # (Auto) 1.1 H (0.0-0.8) K/uL Eos # (Auto) 0.1 (0.0-0.7) K/uL Baso # (Auto) 0.0 (0.0-0.1) K/uL Nucleated RBC % 0.0 /100WBC Nucleated RBCs # 0 K/uL INR 1.03 APTT 26.6 (18.6-31.3) SEC Sodium 135 L (136-145) mmol/L Potassium 4.8 (3.5-5.1) mmol/L Chloride 100 (98-107) mmol/L Carbon Dioxide 24.0 (21.0-32.0) mmol/L BUN 52 H (7.0-18.0) mg/dL Creatinine 3.0 H (0.6-1.0) mg/dL Est Cr Clr Drug Dosing 17.87 mL/min Estimated GFR (MDRD) 15.8 ml/min Glucose 104 (74-106) mg/dL Calcium 9.3 (8.5-10.1) mg/dL Total Bilirubin 0.7 (0.2-1.0) mg/dL AST 24 (15-37) IU/L ALT 17 (14-63) IU/L Alkaline Phosphatase 104 (46-116) U/L Total Protein 7.8 (6.4-8.2) g/dL Albumin 4.0 (3.4-5.0) g/dL Globulin 3.8 (2.6-4.0) g/dL Albumin/Globulin Ratio 1.1 (0.9-1.6) Lipase 99 (73-393) U/L Urine Color Urine Appearance Urine pH (5.0-8.0) Ur Specific [place] (1.001-1.035) Urine Protein (NEGATIVE) mg/dL Urine Glucose (UA) (NEGATIVE) mg/dL Urine Ketones (NEGATIVE) mg/dL Urine Occult Blood (NEGATIVE) Urine Nitrite (NEGATIVE) Urine Bilirubin (NEGATIVE) Urine Ictotest Urine Urobilinogen (<2.0) EU/dL Ur Leukocyte Esterase (NEGATIVE) Urine RBC (0-2/HPF) Urine WBC (0-5/HPF) Ur Epithelial Cells (NONE-FEW) Urine Bacteria (NEGATIVE) 11/13/19 Range/Units 22:35 WBC (4.0-11.0) K/uL RBC (4.30-5.90) M/uL Hgb (12.0-16.0) g/dL Hct (36.0-46.0) % MCV (80.0-98.0) fL MCH (27.0-32.0) pg MCHC (31.0-37.0) g/dL RDW Std Deviation (28.0-62.0) fl RDW Coeff of Jamil (11.0-15.0) % Plt Count (150-400) K/uL MPV (7.40-12.00) fL Neut % (Auto) (48.0-80.0) % Lymph % (Auto) (16.0-40.0) % [place] % (Auto) (0.0-15.0) % Eos % (Auto) (0.0-7.0) % Baso % (Auto) (0.0-1.5) % Neut # (Auto) (1.4-5.7) K/uL Lymph # (Auto) (0.6-2.4) K/uL [place] # (Auto) (0.0-0.8) K/uL Eos # (Auto) (0.0-0.7) K/uL Baso # (Auto) (0.0-0.1) K/uL Nucleated RBC % /100WBC Nucleated RBCs # K/uL INR APTT (18.6-31.3) SEC Sodium (136-145) mmol/L Potassium (3.5-5.1) mmol/L Chloride (98-107) mmol/L Carbon Dioxide (21.0-32.0) mmol/L BUN (7.0-18.0) mg/dL Creatinine (0.6-1.0) mg/dL Est Cr Clr Drug Dosing mL/min Estimated GFR (MDRD) ml/min Glucose (74-106) mg/dL Calcium (8.5-10.1) mg/dL Total Bilirubin (0.2-1.0) mg/dL AST (15-37) IU/L ALT (14-63) IU/L Alkaline Phosphatase (46-116) U/L Total Protein (6.4-8.2) g/dL Albumin (3.4-5.0) g/dL Globulin (2.6-4.0) g/dL Albumin/Globulin Ratio (0.9-1.6) Lipase (73-393) U/L Urine Color YELLOW Urine Appearance CLEAR Urine pH 6.0 (5.0-8.0) Ur Specific [place] >= 1.030 (1.001-1.035) Urine Protein 30 H (NEGATIVE) mg/dL Urine Glucose (UA) NEGATIVE (NEGATIVE) mg/dL Urine Ketones NEGATIVE (NEGATIVE) mg/dL Urine Occult Blood SMALL H (NEGATIVE) Urine Nitrite NEGATIVE (NEGATIVE) Urine Bilirubin SMALL H (NEGATIVE) Urine Ictotest NEGATIVE Urine Urobilinogen 0.2 (<2.0) EU/dL Ur Leukocyte Esterase SMALL H (NEGATIVE) Urine RBC 1-2 (0-2/HPF) Urine WBC 1-2 (0-5/HPF) Ur Epithelial Cells RARE (NONE-FEW) Urine Bacteria RARE (NEGATIVE) Meds: Medications Generic Name Dose Route Start Last Admin Trade Name Nancy PRN Reason Stop Dose Admin Sodium Chloride 2.5 ml 11/13/19 21:32 Saline Flush FLUSH ASDIRECTED PRN Keep Vein Open Sodium Chloride 10 ml 11/13/19 21:32 Saline Flush FLUSH ASDIRECTED PRN Keep Vein Open Sodium Chloride 2.5 ml 11/13/19 21:32 Saline Flush FLUSH ASDIRECTED PRN Keep Vein Open Discontinued Medications Generic Name Dose Route Start Last Admin Trade Name Nancy PRN Reason Stop Dose Admin Dicyclomine HCl 20 mg 11/13/19 21:33 11/13/19 21:41 Bentyl PO 11/13/19 21:34 20 mg ONETIME ONE Administration Sodium Chloride 1,000 mls @ 999 mls/hr 11/13/19 21:32 11/13/19 21:40 Normal Saline IV 11/13/19 22:32 999 mls/hr BOLUS ONE Administration Pantoprazole Sodium 40 mg/ 10 mls @ 300 mls/hr 11/13/19 23:15 11/13/19 23:32 Sodium Chloride IV 11/13/19 23:16 300 mls/hr NOW ONE Administration Ondansetron HCl 4 mg 11/13/19 21:32 11/13/19 21:41 Zofran IVPUSH 11/13/19 21:33 4 mg ONETIME ONE Administration Departure - Departure Time of Disposition: 23:52 Disposition: Refer to Observation Condition: Good Clinical Impression: GI bleed Qualifiers: GI bleed type/associated pathology: unspecified gastrointestinal hemorrhage type Qualified Code(s): K92.2 - Gastrointestinal hemorrhage, unspecified - Discharge Information Referrals: Elda Bran MD [Primary Care Provider] - Forms: ED Department Discharge Sepsis Event Note - Evaluation Sepsis Screening Result: No Definite Risk - Focused Exam Vital Signs: Vital Signs Temp Pulse Resp BP Pulse Ox 11/13/19 22:53 84 18 106/58 L 95 11/13/19 21:20 36.1 C 94 18 113/61 94 L Date Exam was Performed: 11/13/19 Time Exam was Performed: 23:49 - My Orders Last 24 Hours: My Active Orders 11/13/19 21:32 Sodium Chloride 0.9% [Saline Flush] 10 ml FLUSH ASDIRECTED PRN Sodium Chloride 0.9% [Saline Flush] 2.5 ml FLUSH ASDIRECTED PRN Sodium Chloride 0.9% [Saline Flush] 2.5 ml FLUSH ASDIRECTED PRN Saline Lock Insert [OM.PC] Stat - Assessment/Plan Last 24 Hours: My Active Orders 11/13/19 21:32 Sodium Chloride 0.9% [Saline Flush] 10 ml FLUSH ASDIRECTED PRN Sodium Chloride 0.9% [Saline Flush] 2.5 ml FLUSH ASDIRECTED PRN Sodium Chloride 0.9% [Saline Flush] 2.5 ml FLUSH ASDIRECTED PRN Saline Lock Insert [OM.PC] Stat
[2019-11-13 21:57] LABS: POTASSIUM,K 4.8 mmol/L (3.5-5.1)
--- NOTE | 2019-11-13 22:50 | CT ---
INDICATION: Abdominal pain, blood in stool TECHNIQUE: CT Abdomen and pelvis without i.v. contrast. Coronal and sagittal reformats were obtained. COMPARISON: None FINDINGS: Moderate to severe degradation of image quality is present due to the patient`s inability to maintain a breath hold. Lower chest: Moderate panlobular emphysema seen in the lung bases. Liver: Unremarkable. Spleen: Unremarkable. Pancreas: Unremarkable. Gallbladder: Unremarkable. Kidney: There is a low-density lesion in the upper pole of the left kidney that measures 1.7 cm and is incompletely characterized without intravenous contrast. Adrenal: Unremarkable. Bowel: Mild sigmoid diverticulosis is present with no evidence of diverticulitis. The descending and transverse colon are collapsed and difficult to evaluate. The appendix is normal in appearance and size. Vascular: Unremarkable. Lymph: Unremarkable. Peritoneum: Unremarkable. No pneumoperitoneum is seen. No significant ascites is noted. Pelvis: Unremarkable. Soft tissue: Unremarkable. Bone: Unremarkable for age. IMPRESSION: 1. Unremarkable with no CT correlate for the patient`s symptoms seen. Dictated by Joaquin Richardson MD @ 11/13/2019 10:41:07 PM Please note that all CT scans at this facility use dose modulation, iterative reconstruction, and/or weight-based dosing when appropriate to reduce radiation dose to as low as reasonably achievable. Dictated by: Joaquin Richardson MD @ 11/13/2019 22:49:59 (Electronically Signed)
[2019-11-13] MEDS ORDERED: Pantoprazole 40 MG in Sodium Chloride 0.9% 10 ML IV ONE (23:15)
[2019-11-14] MEDS: Sodium Chloride 0.9% 1,000 ML IV SCH ×3 (01:34→18:15)
[2019-11-14] MEDS: Acetaminophen 325 MG Tab PO PRN ×2 (01:37→23:25)
[2019-11-14 06:12] LABS: CARBON DIOXIDE,CO2 22.4 mmol/L (21.0-32.0); POTASSIUM,K 4.9 mmol/L (3.5-5.1)
[2019-11-14] MEDS: Insulin Aspart 100 Units/ML 3 ML Pen SUBCUT SCH ×3 (06:18→17:26)
[2019-11-14] MEDS ORDERED: Metoclopramide 10 MG/2 ML SDV IVPUSH ONE (09:51)
[2019-11-14] MEDS ORDERED: diphenhydrAMINE 50 MG/ML SDV IVPUSH ONE (09:51)
[2019-11-14] MEDS: Pantoprazole 40 MG in Sodium Chloride 0.9% 10 ML IV SCH ×2 (10:56→20:55)
[2019-11-14] MEDS: cefTRIAXone 1 GM in Premix Bag 1 BAG IV SCH (10:59)
--- NOTE | 2019-11-14 11:13 | PCM.HP.2 ---
H&P History of Present Illness - General Date of Service: 11/14/19 Admit Problem/Dx: Admission Diagnosis/Problem Admission Diagnosis/Problem GI bleed not requiring more than 4 units of blood in 24 hours, ICU, or surgery Source of Information: Patient History Limitations: Reports: No Limitations - History of Present Illness Initial Comments - Free Text/Narative: Patient is a 64-year-old female with a significant past medical history of COPD , hypertension, chronic migraines, chronic NSAID use presenting yesterday for intractable nausea and vomiting x2 to 3 days. Mentions abdominal pain and discomfort had induced significant nausea and vomiting causing decreased appetite; patient also endorsed having dark stools x2 days. Otherwise denies any fevers, chills, body aches, fatigue, chest pain, shortness of breath. Was recently discharged secondary to COPD exacerbation. Patient does use on a daily basis prednisone for her COPD and recently completed a course of antibiotics for her exacerbation. Patient received 2 L of IV fluids in ED and CT abdomen pelvis was negative for any acute processes. Bedside: Patient endorses having 1-2 possibly 3 tabs of NSAIDs daily secondary to her migraine. Mentions migraines have been going on for couple months since her previous admission. Denies use of any other drugs including illicit drugs. Mentions to me having a colonoscopy in the past; cannot recall exact date; states no acute processes except for some noncancerous polyp removal. A.m.: Endorses interval improvement since admission. Complaining of a migraine but states this is a chronic issue moving forward. Abdomen Pain Score (Numeric/FACES): 8 - Related Data Allergies/Adverse Reactions: Allergies Allergy/AdvReac Type Severity Reaction Status Date / Time No Known Allergies Allergy Verified 11/13/19 21:20 Home Medications: Home Meds Albuterol [Proventil HFA] 1 puff INH QID PRN 09/22/18 [History] Albuterol/Ipratropium [DuoNeb 3.0-0.5 MG/3 ML] 3 ml NEB Q8HR PRN 09/22/18 [ History] Venlafaxine HCl [Venlafaxine ER] 75 mg PO DAILY 09/22/18 [History] cloNIDine [Catapres] 0.1 mg PO BID 09/22/18 [History] Umeclidinium [place] [Incruse Ellipta*] 1 puff IH DAILY 05/19/19 [History] Varenicline Tartrate [Chantix] 1 mg PO BID 05/19/19 [History] Albuterol Sulfate [Albuterol Sulfate Hfa] 2 puff INH ASDIRECTED PRN 08/06/19 [ History] Albuterol [Ventolin HFA] 2 puff INH ASDIRECTED PRN 08/06/19 [History] Escitalopram [Lexapro] 20 mg PO DAILY 08/06/19 [History] Oxybutynin 5 mg PO BEDTIME 08/06/19 [History] lisinopriL [Zestril] 10 mg PO DAILY 08/06/19 [History] Sucralfate [Carafate] 1 gm PO QIDACANDBED #120 tablet 08/08/19 [Rx] Ibuprofen 200 mg PO ASDIRECTED PRN 09/01/19 [History] Simvastatin [Zocor] 10 mg PO DAILY 09/01/19 [History] diphenhydrAMINE HCL [Diphenhydramine HCl] 25 mg PO BEDTIME 09/01/19 [History] Budesonide/Formoterol [Symbicort 160-4.5 MCG] 2 inh IH BID 10/20/19 [History] predniSONE [Prednisone] 40 mg PO DAILY 3 Days #6 tablet 10/21/19 [Rx] Past Medical History - Past Health History Medical/Surgical History: Denies Medical/Surgical History HEENT History: Reports: None Cardiovascular History: Reports: Hypertension Respiratory History: Reports: COPD, Other (See Below) Other Respiratory History: Home O2 @ 2LPM Gastrointestinal History: Reports: Diverticulosis Genitourinary History: Reports: Other (See Below) Other Genitourinary History: kidney stones INTEGRATION AIDE History: Reports: Musculoskeletal History: Reports: None Neurological History: Reports: None Psychiatric History: Reports: Addiction, Anxiety, Depression Endocrine/Metabolic History: Reports: None Insulin Pump Model and Dining Service Inspector: None Hematologic History: Reports: None Immunologic History: Reports: None Oncologic (Cancer) History: Reports: None Dermatologic History: Reports: None - Infectious Disease History Infectious Disease History: Reports: Hepatitis C Other Infectious Disease History: unsure of which kind of hepatitis - Past Surgical History Head Surgeries/Procedures: Reports: None HEENT Surgical History: Reports: None Cardiovascular Surgical History: Reports: None Respiratory Surgical History: Reports: None GI Surgical History: Reports: Appendectomy Female Surgical History: Reports: None Endocrine Surgical History: Reports: None Neurological Surgical History: Reports: None Musculoskeletal Surgical History: Reports: Other (See Below) Other Musculoskeletal Surgeries/Procedures:: rt shoulder surg Oncologic Surgical History: Reports: None Dermatological Surgical History: Reports: None Social & Family History - Family History Family Medical History: Noncontributory Respiratory: Reports: Asthma, COPD : Reports: Renal Disease/Insufficiency Psychiatric: Reports: Anxiety, Depression Endocrine/Metabolic: Reports: Diabetes, type II Oncologic: Reports: Hodgkin's Lymphoma - Tobacco Use Smoking Status *Q: Former Smoker Years of Tobacco use: 40 Used Tobacco, but Quit: Yes Month/Year Tobacco Last Used: 07/2019 - Caffeine Use Caffeine Use: Reports: None Caffeine Use Comment: 5 cups avg per day - Recreational Drug Use Recreational Drug Use: No - Living Situation & Occupation Living situation: Reports: Single H&P Review of Systems - Review of Systems: Review Of Systems: See Below General: Denies: Fever, Chills, Malaise HEENT: Reports: No Symptoms Pulmonary: Reports: Cough. Denies: Shortness of Breath, Wheezing Cardiovascular: Reports: No Symptoms Gastrointestinal: Reports: Abdominal Pain, Black Stool, Decreased Appetite. Denies: Constipation, Diarrhea Genitourinary: Reports: Dysuria, Burning Musculoskeletal: Reports: No Symptoms Skin: Reports: No Symptoms Psychiatric: Reports: No Symptoms Neurological: Reports: Headache Exam - Exam Exam: See Below - Vital Signs Vital Signs: Last Vital Signs Temp 97.7 F 11/14/19 08:00 Pulse 72 11/14/19 08:00 Resp 18 11/14/19 08:00 BP 118/63 11/14/19 08:00 Pulse Ox 93 L 11/14/19 08:00 Weight: 59.965 kg - Exam General: Alert, Oriented, Mild Distress HEENT: EOMI, Hearing Intact Neck: Supple, Trachea Midline Lungs: Clear to Auscultation, Normal Respiratory Effort Cardiovascular: Regular Rate, Regular Rhythm GI/Abdominal Exam: Other (mild periumbilical tenderness; no rebound tenderness) (Female) Exam: Normal External Exam Rectal (Female) Exam: Normal Exam Back Exam: Normal Inspection Extremities: Normal Range of Motion, Non-Tender Skin: Warm Neurological: Cranial Nerves Intact Neuro Extensive - Mental Status: Alert, Oriented x3, Normal Mood/Affect, Normal Cognition - Patient Data Lab Results Last 24 hrs: Laboratory Results - last 24 hr 11/13/19 11/13/19 11/13/19 Range/Units 21:30 21:30 21:30 WBC 13.62 H (4.0-11.0) K/uL RBC 4.40 (4.30-5.90) M/uL Hgb 12.3 (12.0-16.0) g/dL Hct 37.6 (36.0-46.0) % MCV 85.5 (80.0-98.0) fL MCH 28.0 (27.0-32.0) pg MCHC 32.7 (31.0-37.0) g/dL RDW Std Deviation 44.8 (28.0-62.0) fl RDW Coeff of Jamil 14 (11.0-15.0) % Plt Count 261 (150-400) K/uL MPV 9.50 (7.40-12.00) fL Neut % (Auto) 76.2 (48.0-80.0) % Lymph % (Auto) 14.8 L (16.0-40.0) % [place] % (Auto) 8.1 (0.0-15.0) % Eos % (Auto) 0.8 (0.0-7.0) % Baso % (Auto) 0.1 (0.0-1.5) % Neut # (Auto) 10.4 H (1.4-5.7) K/uL Lymph # (Auto) 2.0 (0.6-2.4) K/uL Fann[place] # (Auto) 1.1 H (0.0-0.8) K/uL Eos # (Auto) 0.1 (0.0-0.7) K/uL Baso # (Auto) 0.0 (0.0-0.1) K/uL Nucleated RBC % 0.0 /100WBC Nucleated RBCs # 0 K/uL INR 1.03 APTT 26.6 (18.6-31.3) SEC Sodium 135 L (136-145) mmol/L Potassium 4.8 (3.5-5.1) mmol/L Chloride 100 (98-107) mmol/L Carbon Dioxide 24.0 (21.0-32.0) mmol/L BUN 52 H (7.0-18.0) mg/dL Creatinine 3.0 H (0.6-1.0) mg/dL Est Cr Clr Drug Dosing 17.87 mL/min Estimated GFR (MDRD) 15.8 ml/min Glucose 104 (74-106) mg/dL POC Glucose (60-110) mg/dL Calcium 9.3 (8.5-10.1) mg/dL Total Bilirubin 0.7 (0.2-1.0) mg/dL AST 24 (15-37) IU/L ALT 17 (14-63) IU/L Alkaline Phosphatase 104 (46-116) U/L Total Protein 7.8 (6.4-8.2) g/dL Albumin 4.0 (3.4-5.0) g/dL Globulin 3.8 (2.6-4.0) g/dL Albumin/Globulin Ratio 1.1 (0.9-1.6) Lipase 99 (73-393) U/L Urine Color Urine Appearance Urine pH (5.0-8.0) Ur Specific [place] (1.001-1.035) Urine Protein (NEGATIVE) mg/dL Urine Glucose (UA) (NEGATIVE) mg/dL Urine Ketones (NEGATIVE) mg/dL Urine Occult Blood (NEGATIVE) Urine Nitrite (NEGATIVE) Urine Bilirubin (NEGATIVE) Urine Ictotest Urine Urobilinogen (<2.0) EU/dL Ur Leukocyte Esterase (NEGATIVE) Urine RBC (0-2/HPF) Urine WBC (0-5/HPF) Ur Epithelial Cells (NONE-FEW) Urine Bacteria (NEGATIVE) 11/13/19 11/14/19 11/14/19 Range/Units 22:35 05:29 05:30 WBC 9.06 (4.0-11.0) K/uL RBC 3.67 L (4.30-5.90) M/uL Hgb 10.2 L (12.0-16.0) g/dL Hct 31.8 L (36.0-46.0) % MCV 86.6 (80.0-98.0) fL MCH 27.8 (27.0-32.0) pg MCHC 32.1 (31.0-37.0) g/dL RDW Std Deviation 45.4 (28.0-62.0) fl RDW Coeff of Jamil 14 (11.0-15.0) % Plt Count 196 (150-400) K/uL MPV 9.70 (7.40-12.00) fL Neut % (Auto) 63.1 (48.0-80.0) % Lymph % (Auto) 23.7 (16.0-40.0) % Fann[place] % (Auto) 9.3 (0.0-15.0) % Eos % (Auto) 3.6 (0.0-7.0) % Baso % (Auto) 0.3 (0.0-1.5) % Neut # (Auto) 5.7 (1.4-5.7) K/uL Lymph # (Auto) 2.2 (0.6-2.4) K/uL Fannin # (Auto) 0.8 (0.0-0.8) K/uL Eos # (Auto) 0.3 (0.0-0.7) K/uL Baso # (Auto) 0.0 (0.0-0.1) K/uL Nucleated RBC % 0.0 /100WBC Nucleated RBCs # 0 K/uL INR APTT (18.6-31.3) SEC Sodium (136-145) mmol/L Potassium (3.5-5.1) mmol/L Chloride (98-107) mmol/L Carbon Dioxide (21.0-32.0) mmol/L BUN (7.0-18.0) mg/dL Creatinine (0.6-1.0) mg/dL Est Cr Clr Drug Dosing mL/min Estimated GFR (MDRD) ml/min Glucose (74-106) mg/dL POC Glucose 93 (60-110) mg/dL Calcium (8.5-10.1) mg/dL Total Bilirubin (0.2-1.0) mg/dL AST (15-37) IU/L ALT (14-63) IU/L Alkaline Phosphatase (46-116) U/L Total Protein (6.4-8.2) g/dL Albumin (3.4-5.0) g/dL Globulin (2.6-4.0) g/dL Albumin/Globulin Ratio (0.9-1.6) Lipase (73-393) U/L Urine Color YELLOW Urine Appearance CLEAR Urine pH 6.0 (5.0-8.0) Ur Specific [place] >= 1.030 (1.001-1.035) Urine Protein 30 H (NEGATIVE) mg/dL Urine Glucose (UA) NEGATIVE (NEGATIVE) mg/dL Urine Ketones NEGATIVE (NEGATIVE) mg/dL Urine Occult Blood SMALL H (NEGATIVE) Urine Nitrite NEGATIVE (NEGATIVE) Urine Bilirubin SMALL H (NEGATIVE) Urine Ictotest NEGATIVE Urine Urobilinogen 0.2 (<2.0) EU/dL Ur Leukocyte Esterase SMALL H (NEGATIVE) Urine RBC 1-2 (0-2/HPF) Urine WBC 1-2 (0-5/HPF) Ur Epithelial Cells RARE (NONE-FEW) Urine Bacteria RARE (NEGATIVE) 11/14/19 Range/Units 05:30 WBC (4.0-11.0) K/uL RBC (4.30-5.90) M/uL Hgb (12.0-16.0) g/dL Hct (36.0-46.0) % MCV (80.0-98.0) fL MCH (27.0-32.0) pg MCHC (31.0-37.0) g/dL RDW Std Deviation (28.0-62.0) fl RDW Coeff of Jamil (11.0-15.0) % Plt Count (150-400) K/uL MPV (7.40-12.00) fL Neut % (Auto) (48.0-80.0) % Lymph % (Auto) (16.0-40.0) % Fannin % (Auto) (0.0-15.0) % Eos % (Auto) (0.0-7.0) % Baso % (Auto) (0.0-1.5) % Neut # (Auto) (1.4-5.7) K/uL Lymph # (Auto) (0.6-2.4) K/uL Fannin # (Auto) (0.0-0.8) K/uL Eos # (Auto) (0.0-0.7) K/uL Baso # (Auto) (0.0-0.1) K/uL Nucleated RBC % /100WBC Nucleated RBCs # K/uL INR APTT (18.6-31.3) SEC Sodium 137 (136-145) mmol/L Potassium 4.9 (3.5-5.1) mmol/L Chloride 105 (98-107) mmol/L Carbon Dioxide 22.4 (21.0-32.0) mmol/L BUN 48 H (7.0-18.0) mg/dL Creatinine 2.6 H (0.6-1.0) mg/dL Est Cr Clr Drug Dosing 20.97 mL/min Estimated GFR (MDRD) 18.6 ml/min Glucose 97 (74-106) mg/dL POC Glucose (60-110) mg/dL Calcium 8.1 L (8.5-10.1) mg/dL Total Bilirubin (0.2-1.0) mg/dL AST (15-37) IU/L ALT (14-63) IU/L Alkaline Phosphatase (46-116) U/L Total Protein (6.4-8.2) g/dL Albumin (3.4-5.0) g/dL Globulin (2.6-4.0) g/dL Albumin/Globulin Ratio (0.9-1.6) Lipase (73-393) U/L Urine Color Urine Appearance Urine pH (5.0-8.0) Ur Specific [place] (1.001-1.035) Urine Protein (NEGATIVE) mg/dL Urine Glucose (UA) (NEGATIVE) mg/dL Urine Ketones (NEGATIVE) mg/dL Urine Occult Blood (NEGATIVE) Urine Nitrite (NEGATIVE) Urine Bilirubin (NEGATIVE) Urine Ictotest Urine Urobilinogen (<2.0) EU/dL Ur Leukocyte Esterase (NEGATIVE) Urine RBC (0-2/HPF) Urine WBC (0-5/HPF) Ur Epithelial Cells (NONE-FEW) Urine Bacteria (NEGATIVE) Result Diagrams: 11/14/19 05:30 11/14/19 05:30 Sepsis Event Note - Evaluation Sepsis Screening Result: No Definite Risk - Focused Exam Vital Signs: Vital Signs Temp Pulse Resp BP Pulse Ox 11/14/19 08:00 97.7 F 72 18 118/63 93 L 11/14/19 04:31 97.9 F 86 18 113/60 93 L 11/14/19 01:00 98.0 F 90 17 121/67 93 L 11/14/19 00:19 97.1 F 84 18 96/54 L 95 Date Exam was Performed: 11/14/19 Time Exam was Performed: 11:21 Problem List Initiated/Reviewed/Updated: Yes Orders Last 24hrs: Active Orders 24 hr Category Date Time Status Admission Status [Patient Status] [ADT] Stat ADT 11/13/19 23:50 Active Blood Glucose Check, Bedside [RC] Q6HR Care 11/14/19 06:00 Active RT Aerosol Therapy [RC] ASDIRECTED Care 11/14/19 01:30 Active Telemetry Monitoring [Cardiac Monitoring] [RC] . Care 11/14/19 00:25 Active DIRECTED Clear Liquid Diet [DIET] Diet 11/14/19 Breakfast Active Guaiac [OCCULT BLOOD DIAGNOSTIC] [OP] Routine Lab 11/14/19 08:10 Ordered Acetaminophen [Tylenol] Med 11/14/19 01:28 Active 650 mg PO Q6H PRN Albuterol/Ipratropium [DuoNeb 3.0-0.5 MG/3 ML] Med 11/14/19 01:28 Active 3 ml NEB Q6HRRT PRN Insulin Aspart [NovoLOG] Med 11/14/19 06:00 Active See Protocol SUBCUT Q6H Pantoprazole [ProTONIX IV] 40 mg Med 11/14/19 09:45 Active Sodium Chloride 0.9% [Normal Saline] 10 ml IV Q12H Sodium Chloride 0.9% [Normal Saline] 1,000 ml Med 11/14/19 01:30 Active IV ASDIRECTED Sodium Chloride 0.9% [Saline Flush] Med 11/13/19 21:32 Active 10 ml FLUSH ASDIRECTED PRN Sodium Chloride 0.9% [Saline Flush] Med 11/13/19 21:32 Active 2.5 ml FLUSH ASDIRECTED PRN Sodium Chloride 0.9% [Saline Flush] Med 11/13/19 21:32 Active 2.5 ml FLUSH ASDIRECTED PRN cefTRIAXone [Rocephin in Dextrose,Iso-Osm 1 GM/50 ML] 1 Med 11/14/19 10:00 Active gm Premix Bag 1 bag IV Q24H Saline Lock Insert [OM.PC] Stat Oth 11/13/19 21:32 Ordered Medication Orders Acetaminophen (Tylenol) 650 mg PO Q6H PRN PRN Reason: Pain Last Admin: 11/14/19 01:37 Dose: 650 mg Albuterol/Ipratropium (Duoneb 3.0-0.5 Mg/3 Ml) 3 ml NEB Q6HRRT PRN PRN Reason: Shortness of Breath Sodium Chloride (Normal Saline) 1,000 mls @ 125 mls/hr IV ASDIRECTED [facility] Last Admin: 11/14/19 09:41 Dose: 125 mls/hr Infusion: 11/14/19 09:34 Dose: 125 mls/hr Admin: 11/14/19 01:34 Dose: 125 mls/hr Pantoprazole Sodium 40 mg/ (Sodium Chloride) 10 mls @ 300 mls/hr IV Q12H [facility] Last Admin: 11/14/19 10:56 Dose: 300 mls/hr Ceftriaxone Sodium/Dextrose 1 (gm/ Premix) 50 mls @ 100 mls/hr IV Q24H [facility] Last Admin: 11/14/19 10:59 Dose: 100 mls/hr Insulin Aspart (Novolog) 0 unit SUBCUT Q6H [facility]; Protocol Last Admin: 11/14/19 06:18 Dose: Not Given Sodium Chloride (Saline Flush) 2.5 ml FLUSH ASDIRECTED PRN PRN Reason: Keep Vein Open Sodium Chloride (Saline Flush) 10 ml FLUSH ASDIRECTED PRN PRN Reason: Keep Vein Open Sodium Chloride (Saline Flush) 2.5 ml FLUSH ASDIRECTED PRN PRN Reason: Keep Vein Open Assessment/Plan Comment:: Assessment: 1. Intractable Nausea and vomiting w. chronic NSAID use 2. Episode of Dark stool in chronic NSAID use 3. UTI w. dysuria 4. ALICIA in setting of dehydration and chronic NSAID use Plan Admit to obs. Full code. Clear liquid diet. DVT prophylaxis: SCD. IV PPI BID 1. Nausea/vomit: possibly secondary to chronic NSAID use; will avoid NSAID, provide IV fluids rehydration w. IV PPI. NSAID used for chronic migraine; will trial reglan and bendaryl with possible add on of Imitrex if pain control not sustained.Require outpatient colonoscopy for now; ordered a stool guaic . HGB and vitals stable this AM 2. UTI: +UA; started on IV Rocephin; will follow and adjust w. cultures/ sensitivities. 3. IV hydration continue; advance to clear liquid for now; if pain returns; then NPO. Lipase negative 4. Continue home medications except for NSAIDs.
[2019-11-14] MEDS ORDERED: Albuterol 8 GM Inhaler INH PRN (18:13)
[2019-11-14] MEDS: ESCITALOPRAM 20 MG PO SCH (18:48)
[2019-11-14] MEDS: Simvastatin 10 MG Tab PO SCH (20:59)
[2019-11-14] MEDS: Oxybutynin 5 MG Tab PO SCH (20:59)
[2019-11-14] MEDS: Sucralfate 1 GM Tab PO SCH (20:59)
[2019-11-15] MEDS: Insulin Aspart 100 Units/ML 3 ML Pen SUBCUT SCH ×4 (01:25→18:01)
[2019-11-15] MEDS: Sodium Chloride 0.9% 1,000 ML IV SCH ×2 (06:11→14:56)
[2019-11-15] MEDS: Sucralfate 1 GM Tab PO SCH ×4 (06:39→22:11)
[2019-11-15] MEDS: Albuterol/Ipratropium 3.0-0.5 MG/3 ML Neb Soln NEB PRN (08:09)
[2019-11-15] MEDS ORDERED: Ondansetron 4 MG Tab.DIS PO ONE (08:28)
[2019-11-15] MEDS: Pantoprazole 40 MG in Sodium Chloride 0.9% 10 ML IV SCH ×2 (08:48→22:08)
[2019-11-15] MEDS: ESCITALOPRAM 20 MG PO SCH (08:54)
[2019-11-15] MEDS: Lisinopril 10 MG Tab PO SCH (08:55)
[2019-11-15] MEDS: cloNIDine 0.1 MG Tab PO SCH ×2 (08:55→22:09)
[2019-11-15] MEDS: Venlafaxine 75 MG Cap.ER PO SCH (08:56)
[2019-11-15] MEDS ORDERED: Non-Formulary Medication 1 Each (Umeclidinium Bromide [Incruse Ellipta*] 1 PUFF) IH SCH (09:00)
[2019-11-15 09:06] LABS: POTASSIUM,K 4.6 mmol/L (3.5-5.1)
[2019-11-15] MEDS: cefTRIAXone 1 GM in Premix Bag 1 BAG IV SCH (09:40)
--- NOTE | 2019-11-15 09:42 | PCM.PN ---
<Diamond Zee - Last Filed: 11/15/19 12:38> - General Info Date of Service: 11/15/19 Subjective Update: pt. endorses feeling beeter since admission but c/o occasional abdominal cramping. Had one dark stool overnight - Review of Systems General: Reports: No Symptoms HEENT: Reports: No Symptoms Pulmonary: Reports: No Symptoms Cardiovascular: Reports: No Symptoms Gastrointestinal: Reports: Abdominal Pain, Decreased Appetite, Diarrhea. Denies : Constipation Genitourinary: Reports: Dysuria Musculoskeletal: Reports: No Symptoms Skin: Reports: No Symptoms Neurological: Reports: Headache Psychiatric: Reports: No Symptoms - Patient Data Vitals - Most Recent: Last Vital Signs Temp 97.6 F 11/15/19 08:00 Pulse 63 11/15/19 08:00 Resp 18 11/15/19 08:00 BP 119/77 11/15/19 08:00 Pulse Ox 93 L 11/15/19 08:00 Weight - Most Recent: 59.965 kg I&O - Last 24 Hours: Intake & Output 11/14/19 11/15/19 11/15/19 22:59 06:59 14:59 Intake Total 2040 1430 Output Total 700 1100 Balance 1340 330 Lab Results Last 24 Hours: Laboratory Results - last 24 hr 11/14/19 11/14/19 11/14/19 Range/Units 12:27 17:23 23:48 WBC (4.0-11.0) K/uL RBC (4.30-5.90) M/uL Hgb (12.0-16.0) g/dL Hct (36.0-46.0) % MCV (80.0-98.0) fL MCH (27.0-32.0) pg MCHC (31.0-37.0) g/dL RDW Std Deviation (28.0-62.0) fl RDW Coeff of Jamil (11.0-15.0) % Plt Count (150-400) K/uL MPV (7.40-12.00) fL Neut % (Auto) (48.0-80.0) % Lymph % (Auto) (16.0-40.0) % [place] % (Auto) (0.0-15.0) % Eos % (Auto) (0.0-7.0) % Baso % (Auto) (0.0-1.5) % Neut # (Auto) (1.4-5.7) K/uL Lymph # (Auto) (0.6-2.4) K/uL [place] # (Auto) (0.0-0.8) K/uL Eos # (Auto) (0.0-0.7) K/uL Baso # (Auto) (0.0-0.1) K/uL Nucleated RBC % /100WBC Nucleated RBCs # K/uL Sodium (136-145) mmol/L Potassium (3.5-5.1) mmol/L Chloride (98-107) mmol/L Carbon Dioxide (21.0-32.0) mmol/L BUN (7.0-18.0) mg/dL Creatinine (0.6-1.0) mg/dL Est Cr Clr Drug Dosing mL/min Estimated GFR (MDRD) ml/min Glucose (74-106) mg/dL POC Glucose 84 72 90 (60-110) mg/dL Calcium (8.5-10.1) mg/dL Total Bilirubin (0.2-1.0) mg/dL AST (15-37) IU/L ALT (14-63) IU/L Alkaline Phosphatase (46-116) U/L Total Protein (6.4-8.2) g/dL Albumin (3.4-5.0) g/dL Globulin (2.6-4.0) g/dL Albumin/Globulin Ratio (0.9-1.6) 11/15/19 11/15/19 11/15/19 Range/Units 05:58 08:07 08:07 WBC 9.10 (4.0-11.0) K/uL RBC 3.62 L (4.30-5.90) M/uL Hgb 9.9 L (12.0-16.0) g/dL Hct 32.0 L (36.0-46.0) % MCV 88.4 (80.0-98.0) fL MCH 27.3 (27.0-32.0) pg MCHC 30.9 L (31.0-37.0) g/dL RDW Std Deviation 47.5 (28.0-62.0) fl RDW Coeff of Jamil 15 (11.0-15.0) % Plt Count 171 (150-400) K/uL MPV 9.70 (7.40-12.00) fL Neut % (Auto) 62.8 (48.0-80.0) % Lymph % (Auto) 25.3 (16.0-40.0) % [place] % (Auto) 7.3 (0.0-15.0) % Eos % (Auto) 4.2 (0.0-7.0) % Baso % (Auto) 0.4 (0.0-1.5) % Neut # (Auto) 5.7 (1.4-5.7) K/uL Lymph # (Auto) 2.3 (0.6-2.4) K/uL [place] # (Auto) 0.7 (0.0-0.8) K/uL Eos # (Auto) 0.4 (0.0-0.7) K/uL Baso # (Auto) 0.0 (0.0-0.1) K/uL Nucleated RBC % 0.0 /100WBC Nucleated RBCs # 0 K/uL Sodium 141 (136-145) mmol/L Potassium 4.6 (3.5-5.1) mmol/L Chloride 108 H (98-107) mmol/L Carbon Dioxide 23.0 (21.0-32.0) mmol/L BUN 25 H (7.0-18.0) mg/dL Creatinine 1.4 H (0.6-1.0) mg/dL Est Cr Clr Drug Dosing 38.94 mL/min Estimated GFR (MDRD) 38.0 ml/min Glucose 79 (74-106) mg/dL POC Glucose 81 (60-110) mg/dL Calcium 7.9 L (8.5-10.1) mg/dL Total Bilirubin 0.4 (0.2-1.0) mg/dL AST 16 (15-37) IU/L ALT 14 (14-63) IU/L Alkaline Phosphatase 68 (46-116) U/L Total Protein 6.0 L (6.4-8.2) g/dL Albumin 2.8 L (3.4-5.0) g/dL Globulin 3.2 (2.6-4.0) g/dL Albumin/Globulin Ratio 0.9 (0.9-1.6) Ryan Results Last 24 Hours: Microbiology 11/14/19 16:00 Stool Occult Blood (RYAN) - Final Stool / Feces Med Orders - Current: Current Medications Acetaminophen (Tylenol) 650 mg PO Q6H PRN PRN Reason: Pain Last Admin: 11/14/19 23:25 Dose: 650 mg Albuterol/Ipratropium (Duoneb 3.0-0.5 Mg/3 Ml) 3 ml NEB Q6HRRT PRN PRN Reason: Shortness of Breath Last Admin: 11/15/19 08:09 Dose: 3 ml Sodium Chloride (Normal Saline) 1,000 mls @ 125 mls/hr IV ASDIRECTED YASIR Last Admin: 11/15/19 06:11 Dose: 125 mls/hr Pantoprazole Sodium 40 mg/ (Sodium Chloride) 10 mls @ 300 mls/hr IV Q12H YASIR Last Admin: 11/15/19 08:48 Dose: 300 mls/hr Ceftriaxone Sodium/Dextrose 1 (gm/ Premix) 50 mls @ 100 mls/hr IV Q24H YASIR Last Admin: 11/14/19 10:59 Dose: 100 mls/hr Insulin Aspart (Novolog) 0 unit SUBCUT Q6H [facility]; Protocol Last Admin: 11/15/19 06:11 Dose: Not Given Clonidine 0.1 Mg Tab 1 each PO BID [facility] Last Admin: 11/15/19 08:55 Dose: 1 each Escitalopram [ (Lexapro] 20mg) 1 each PO DAILY [facility] Last Admin: 11/15/19 08:54 Dose: 1 each Lisinopril 10 Mg Tab 1 each PO DAILY YASIR Last Admin: 11/15/19 08:55 Dose: 1 each Oxybutynin 5 Mg Tab 1 each PO BEDTIME YASIR Last Admin: 11/14/19 20:59 Dose: 1 each Simvastatin 10 Mg (Tab) 1 each PO BEDTIME YASIR Last Admin: 11/14/19 20:59 Dose: 1 each Sucralfate 1 Gm Tab 1 each PO QIDACANDBED [facility] Last Admin: 11/15/19 06:39 Dose: 1 each Venlafaxine 75 Mg (Cap.Er) 1 each PO DAILY [facility] Last Admin: 11/15/19 08:56 Dose: 1 each Sodium Chloride (Saline Flush) 2.5 ml FLUSH ASDIRECTED PRN PRN Reason: Keep Vein Open Sodium Chloride (Saline Flush) 10 ml FLUSH ASDIRECTED PRN PRN Reason: Keep Vein Open Sodium Chloride (Saline Flush) 2.5 ml FLUSH ASDIRECTED PRN PRN Reason: Keep Vein Open Discontinued Medications Dicyclomine HCl (Bentyl) 20 mg PO ONETIME ONE Stop: 11/13/19 21:34 Last Admin: 11/13/19 21:41 Dose: 20 mg Diphenhydramine HCl (Benadryl) 25 mg IVPUSH ONETIME ONE Stop: 11/14/19 09:52 Last Admin: 11/14/19 10:56 Dose: 25 mg Sodium Chloride (Normal Saline) 1,000 mls @ 999 mls/hr IV BOLUS ONE Stop: 11/13/19 22:32 Last Admin: 11/13/19 21:40 Dose: 999 mls/hr Pantoprazole Sodium 40 mg/ (Sodium Chloride) 10 mls @ 300 mls/hr IV NOW ONE Stop: 11/13/19 23:16 Last Admin: 11/13/19 23:32 Dose: 300 mls/hr Metoclopramide HCl (Reglan) 10 mg IVPUSH ONETIME ONE Stop: 11/14/19 09:52 Last Admin: 11/14/19 11:00 Dose: 10 mg Ondansetron HCl (Zofran) 4 mg IVPUSH ONETIME ONE Stop: 11/13/19 21:33 Last Admin: 11/13/19 21:41 Dose: 4 mg Ondansetron HCl (Zofran Odt) 4 mg PO ONETIME ONE Stop: 11/15/19 08:29 Last Admin: 11/15/19 08:48 Dose: 4 mg - Exam Quality Assessment: Supplemental Oxygen General: Alert, Oriented HEENT: Pupils Equal, EOMI Lungs: Clear to Auscultation, Normal Respiratory Effort Cardiovascular: Regular Rate, Regular Rhythm GI/Abdominal Exam: Soft, Other (minimal tenderness diffusely) (Female) Exam: Normal External Exam Extremities: Normal Inspection, Non-Tender Skin: Warm Neurological: No New Focal Deficit Psy/Mental Status: Alert, Normal Mood Sepsis Event Note - Evaluation Sepsis Screening Result: No Definite Risk - Focused Exam Vital Signs: Vital Signs Temp Pulse Resp BP Pulse Ox 11/15/19 08:00 97.6 F 63 18 119/77 93 L 06/06/20 04:00 97.5 F 56 L 18 100/63 93 L 11/14/19 23:52 97.8 F 88 16 111/61 95 Date Exam was Performed: 11/15/19 Time Exam was Performed: 12:38 - Problem List Review Problem List Initiated/Reviewed/Updated: Yes - My Orders Last 24 Hours: My Active Orders 11/14/19 18:00 Patient's Own Medication [Ptom] 1 each PO DAILY 11/14/19 21:00 Patient's Own Medication [Ptom] 1 each PO BEDTIME Patient's Own Medication [Ptom] 1 each PO BEDTIME Patient's Own Medication [Ptom] 1 each PO QIDACANDBED 11/15/19 09:00 Patient's Own Medication [Ptom] 1 each PO BID Patient's Own Medication [Ptom] 1 each PO DAILY Patient's Own Medication [Ptom] 1 each PO DAILY - Plan Plan:: Assessment: 1. Intractable Nausea and vomiting w. chronic NSAID use 2. Episode of Dark stool in chronic NSAID use 3. UTI w. dysuria 4. ALICIA in setting of dehydration and chronic NSAID use Plan Admit to obs. Full code. Clear liquid diet. DVT prophylaxis: SCD. IV PPI BID 1. Nausea/vomiting: possibly secondary to chronic NSAID use; will avoid NSAID, provide IV fluids rehydration w. IV PPI. +Sucralafate. Requires outpatient Endo/ colonoscopy. Tito de leon a H.pylori as well NSAID used for chronic migraine; will trial Reglan and Benadryl with possible add on of Imitrex if pain control not sustained.Require outpatient colonoscopy for now; stool guaic positive . HGB : marginal dip to 9.9 but pt. however hemodynamically stable and mentating well; continue to monitor. 2. UTI: +UA; started on IV Rocephin; will follow and adjust w. cultures/ sensitivities. 3. IV hydration continue; Advance to soft diet today; if pain returns; then NPO. Lipase negative 4. Continue home medications except for NSAIDs. <Wisam Young - Last Filed: 11/17/19 23:45> - Patient Data Vitals - Most Recent: Last Vital Signs Temp 36.7 C 11/16/19 12:00 Pulse 68 11/16/19 12:00 Resp 18 11/16/19 12:00 BP 142/80 H 11/16/19 12:00 Pulse Ox 95 11/16/19 12:00 Med Orders - Current: Current Medications Discontinued Medications Acetaminophen (Tylenol) 650 mg PO Q6H PRN PRN Reason: Pain Last Admin: 11/16/19 06:53 Dose: 650 mg Albuterol/Ipratropium (Duoneb 3.0-0.5 Mg/3 Ml) 3 ml NEB Q6HRRT PRN PRN Reason: Shortness of Breath Last Admin: 11/16/19 14:08 Dose: 3 ml Dicyclomine HCl (Bentyl) 20 mg PO ONETIME ONE Stop: 11/13/19 21:34 Last Admin: 11/13/19 21:41 Dose: 20 mg Diphenhydramine HCl (Benadryl) 25 mg IVPUSH ONETIME ONE Stop: 11/14/19 09:52 Last Admin: 11/14/19 10:56 Dose: 25 mg Sodium Chloride (Normal Saline) 1,000 mls @ 999 mls/hr IV BOLUS ONE Stop: 11/13/19 22:32 Last Admin: 11/13/19 21:40 Dose: 999 mls/hr Pantoprazole Sodium 40 mg/ (Sodium Chloride) 10 mls @ 300 mls/hr IV NOW ONE Stop: 11/13/19 23:16 Last Admin: 11/13/19 23:32 Dose: 300 mls/hr Sodium Chloride (Normal Saline) 1,000 mls @ 125 mls/hr IV ASDIRECTED [facility] Last Admin: 11/16/19 09:05 Dose: 125 mls/hr Pantoprazole Sodium 40 mg/ (Sodium Chloride) 10 mls @ 300 mls/hr IV Q12H [facility]AS[facility] Last Admin: 11/16/19 09:06 Dose: 300 mls/hr Ceftriaxone Sodium/Dextrose 1 (gm/ Premix) 50 mls @ 100 mls/hr IV Q24H [facility] Last Admin: 11/16/19 09:12 Dose: 100 mls/hr Insulin Aspart (Novolog) 0 unit SUBCUT Q6H [facility]; Protocol Last Admin: 11/15/19 18:01 Dose: Not Given Insulin Aspart (Novolog) 0 unit SUBCUT TIDAC [facility]; Protocol Last Admin: 11/16/19 12:53 Dose: Not Given Metoclopramide HCl (Reglan) 10 mg IVPUSH ONETIME ONE Stop: 11/14/19 09:52 Last Admin: 11/14/19 11:00 Dose: 10 mg Ondansetron HCl (Zofran) 4 mg IVPUSH ONETIME ONE Stop: 11/13/19 21:33 Last Admin: 11/13/19 21:41 Dose: 4 mg Ondansetron HCl (Zofran Odt) 4 mg PO ONETIME ONE Stop: 11/15/19 08:29 Last Admin: 11/15/19 08:48 Dose: 4 mg Clonidine 0.1 Mg Tab 1 each PO BID YASIR Last Admin: 11/16/19 09:09 Dose: 1 each Escitalopram [ (Lexapro] 20mg) 1 each PO DAILY [facility]AS[facility] Last Admin: 11/16/19 09:09 Dose: 1 each Lisinopril 10 Mg Tab 1 each PO DAILY [facility] Last Admin: 11/16/19 09:11 Dose: 1 each Oxybutynin 5 Mg Tab 1 each PO BEDTIME YASIR Last Admin: 11/15/19 22:10 Dose: 1 each Simvastatin 10 Mg (Tab) 1 each PO BEDTIME YASIR Last Admin: 11/15/19 22:10 Dose: 1 each Sucralfate 1 Gm Tab 1 each PO QIDACANDBED YASIR Last Admin: 11/16/19 12:52 Dose: 1 each Venlafaxine 75 Mg (Cap.Er) 1 each PO DAILY [facility]AS[facility] Last Admin: 11/16/19 09:10 Dose: 1 each Sodium Chloride (Saline Flush) 2.5 ml FLUSH ASDIRECTED PRN PRN Reason: Keep Vein Open Sodium Chloride (Saline Flush) 10 ml FLUSH ASDIRECTED PRN PRN Reason: Keep Vein Open Sodium Chloride (Saline Flush) 2.5 ml FLUSH ASDIRECTED PRN PRN Reason: Keep Vein Open - Plan Plan:: I have seen and evaluated the patient and agree with the residents note unless specified in my note
[2019-11-15] MEDS: Simvastatin 10 MG Tab PO SCH (22:10)
[2019-11-15] MEDS: Oxybutynin 5 MG Tab PO SCH (22:10)
[2019-11-16] MEDS: Sodium Chloride 0.9% 1,000 ML IV SCH ×2 (00:22→09:05)
[2019-11-16] MEDS: Albuterol/Ipratropium 3.0-0.5 MG/3 ML Neb Soln NEB PRN ×3 (01:37→14:08)
[2019-11-16] MEDS: Insulin Aspart 100 Units/ML 3 ML Pen SUBCUT SCH ×2 (06:38→12:53)
[2019-11-16] MEDS: Sucralfate 1 GM Tab PO SCH ×2 (06:45→12:52)
[2019-11-16 06:46] LABS: POTASSIUM,K 4.7 mmol/L (3.5-5.1)
[2019-11-16] MEDS: Acetaminophen 325 MG Tab PO PRN (06:53)
[2019-11-16] MEDS: Pantoprazole 40 MG in Sodium Chloride 0.9% 10 ML IV SCH (09:06)
[2019-11-16] MEDS: ESCITALOPRAM 20 MG PO SCH (09:09)
[2019-11-16] MEDS: cloNIDine 0.1 MG Tab PO SCH (09:09)
[2019-11-16] MEDS: Venlafaxine 75 MG Cap.ER PO SCH (09:10)
[2019-11-16] MEDS: Lisinopril 10 MG Tab PO SCH (09:11)
[2019-11-16] MEDS: cefTRIAXone 1 GM in Premix Bag 1 BAG IV SCH (09:12)
[2019-11-16 14:06] VITALS: BP 142/80; PULSE 68
--- NOTE | 2019-11-16 14:12 | CT ---
Head CT Technique: Multiple axial sections through the brain were obtained. Intravenous contrast was not utilized. Comparison: No previous intracranial imaging is available. Findings: Ventricles along with basal cisterns and sulci over the convexities are mildly prominent. Minimal diminished density is noted within the right basal ganglia compatible with old lacunar infarct. No other abnormal parenchymal densities are seen. No evidence of intracranial hemorrhage. No midline shift or mass-effect is seen. Mild atherosclerotic calcification is seen within the vertebral vessels and within the carotid siphon. Bone window settings were reviewed. No acute calvarial finding is seen. Visualized paranasal sinuses and mastoid sinuses show nothing acute. Impression: 1. Minimal senescent change. 2. Nothing acute is appreciated on noncontrast head CT exam. Diagnostic code #2 This report was dictated in MDT
--- NOTE | 2019-11-16 14:23 | PCM.DCSUM1 ---
Discharge Summary - Discharge Data Discharge Date: 11/16/19 Discharge Disposition: Home, Self-Care 01 Condition: Fair - Referral to Home Health Primary Care Physician: Elda Bran MD - Discharge Plan Home Medications: Home Meds Venlafaxine HCl [Venlafaxine ER] 75 mg PO DAILY 09/22/18 [History] cloNIDine [Catapres] 0.1 mg PO BID 09/22/18 [History] Umeclidinium [place] [Incruse Ellipta*] 1 puff IH DAILY 05/19/19 [History] Albuterol [Ventolin HFA] 2 puff INH Q4HRRT PRN 08/06/19 [History] Escitalopram [Lexapro] 20 mg PO DAILY 08/06/19 [History] Oxybutynin 5 mg PO BEDTIME 08/06/19 [History] lisinopriL [Zestril] 10 mg PO DAILY 08/06/19 [History] Sucralfate [Carafate] 1 gm PO QIDACANDBED #120 tablet 08/08/19 [Rx] Simvastatin [Zocor] 10 mg PO BEDTIME 09/01/19 [History] Patient Handouts: Abdominal Pain, Adult, [id number], Gastrointestinal Bleeding, [id number] Referrals: Elda Bran MD [Primary Care Provider] - Vu Stern MD [Physician] - 12/01/19 9:00 am - Patient Data Vitals - Most Recent: Last Vital Signs Temp 36.7 C 11/16/19 12:00 Pulse 68 11/16/19 12:00 Resp 18 11/16/19 12:00 BP 142/80 H 11/16/19 12:00 Pulse Ox 95 11/16/19 12:00 Weight - Most Recent: 59.965 kg I&O - Last 24 hours: Intake & Output 11/15/19 11/16/19 11/16/19 22:59 06:59 14:59 Intake Total 2236 1286 50 Output Total 1050 Balance 1186 1286 50 Lab Results - Last 24 hrs: Laboratory Results - last 24 hr 11/15/19 11/15/19 11/16/19 Range/Units 17:09 17:13 06:05 WBC 7.67 7.35 (4.0-11.0) K/uL RBC 3.44 L 3.35 L (4.30-5.90) M/uL Hgb 9.5 L 9.3 L (12.0-16.0) g/dL Hct 30.3 L 29.6 L (36.0-46.0) % MCV 88.1 88.4 (80.0-98.0) fL MCH 27.6 27.8 (27.0-32.0) pg MCHC 31.4 31.4 (31.0-37.0) g/dL RDW Std Deviation 46.7 46.9 (28.0-62.0) fl RDW Coeff of Jamil 14 14 (11.0-15.0) % Plt Count 159 163 (150-400) K/uL MPV 9.60 9.90 (7.40-12.00) fL Neut % (Auto) 58.9 52.0 (48.0-80.0) % Lymph % (Auto) 26.9 35.4 (16.0-40.0) % [place] % (Auto) 8.6 7.1 (0.0-15.0) % Eos % (Auto) 5.3 5.2 (0.0-7.0) % Baso % (Auto) 0.3 0.3 (0.0-1.5) % Neut # (Auto) 4.5 3.8 (1.4-5.7) K/uL Lymph # (Auto) 2.1 2.6 H (0.6-2.4) K/uL [place] # (Auto) 0.7 0.5 (0.0-0.8) K/uL Eos # (Auto) 0.4 0.4 (0.0-0.7) K/uL Baso # (Auto) 0.0 0.0 (0.0-0.1) K/uL Nucleated RBC % 0.0 0.0 /100WBC Nucleated RBCs # 0 0 K/uL Sodium (136-145) mmol/L Potassium (3.5-5.1) mmol/L Chloride (98-107) mmol/L Carbon Dioxide (21.0-32.0) mmol/L BUN (7.0-18.0) mg/dL Creatinine (0.6-1.0) mg/dL Est Cr Clr Drug Dosing mL/min Estimated GFR (MDRD) ml/min Glucose (74-106) mg/dL POC Glucose 72 (60-110) mg/dL Calcium (8.5-10.1) mg/dL Total Bilirubin (0.2-1.0) mg/dL AST (15-37) IU/L ALT (14-63) IU/L Alkaline Phosphatase (46-116) U/L Total Protein (6.4-8.2) g/dL Albumin (3.4-5.0) g/dL Globulin (2.6-4.0) g/dL Albumin/Globulin Ratio (0.9-1.6) 11/16/19 11/16/19 11/16/19 Range/Units 06:05 06:32 10:52 WBC (4.0-11.0) K/uL RBC (4.30-5.90) M/uL Hgb (12.0-16.0) g/dL Hct (36.0-46.0) % MCV (80.0-98.0) fL MCH (27.0-32.0) pg MCHC (31.0-37.0) g/dL RDW Std Deviation (28.0-62.0) fl RDW Coeff of Jamil (11.0-15.0) % Plt Count (150-400) K/uL MPV (7.40-12.00) fL Neut % (Auto) (48.0-80.0) % Lymph % (Auto) (16.0-40.0) % [place] % (Auto) (0.0-15.0) % Eos % (Auto) (0.0-7.0) % Baso % (Auto) (0.0-1.5) % Neut # (Auto) (1.4-5.7) K/uL Lymph # (Auto) (0.6-2.4) K/uL [place] # (Auto) (0.0-0.8) K/uL Eos # (Auto) (0.0-0.7) K/uL Baso # (Auto) (0.0-0.1) K/uL Nucleated RBC % /100WBC Nucleated RBCs # K/uL Sodium 142 (136-145) mmol/L Potassium 4.7 (3.5-5.1) mmol/L Chloride 110 H (98-107) mmol/L Carbon Dioxide 24.0 (21.0-32.0) mmol/L BUN 19 H (7.0-18.0) mg/dL Creatinine 1.2 H (0.6-1.0) mg/dL Est Cr Clr Drug Dosing 45.42 mL/min Estimated GFR (MDRD) 45.4 ml/min Glucose 89 (74-106) mg/dL POC Glucose 78 84 (60-110) mg/dL Calcium 7.6 L (8.5-10.1) mg/dL Total Bilirubin 0.1 L (0.2-1.0) mg/dL AST 14 L (15-37) IU/L ALT 13 L (14-63) IU/L Alkaline Phosphatase 56 (46-116) U/L Total Protein 5.5 L (6.4-8.2) g/dL Albumin 2.5 L (3.4-5.0) g/dL Globulin 3.0 (2.6-4.0) g/dL Albumin/Globulin Ratio 0.8 L (0.9-1.6) Med Orders - Current: Current Medications Acetaminophen (Tylenol) 650 mg PO Q6H PRN PRN Reason: Pain Last Admin: 11/16/19 06:53 Dose: 650 mg Albuterol/Ipratropium (Duoneb 3.0-0.5 Mg/3 Ml) 3 ml NEB Q6HRRT PRN PRN Reason: Shortness of Breath Last Admin: 11/16/19 14:08 Dose: 3 ml Sodium Chloride (Normal Saline) 1,000 mls @ 125 mls/hr IV ASDIRECTED [facility] Last Admin: 11/16/19 09:05 Dose: 125 mls/hr Pantoprazole Sodium 40 mg/ (Sodium Chloride) 10 mls @ 300 mls/hr IV Q12H [facility] Last Admin: 11/16/19 09:06 Dose: 300 mls/hr Ceftriaxone Sodium/Dextrose 1 (gm/ Premix) 50 mls @ 100 mls/hr IV Q24H [facility] Last Admin: 11/16/19 09:12 Dose: 100 mls/hr Insulin Aspart (Novolog) 0 unit SUBCUT TIDAC [facility]; Protocol Last Admin: 11/16/19 12:53 Dose: Not Given Clonidine 0.1 Mg Tab 1 each PO BID [facility] Last Admin: 11/16/19 09:09 Dose: 1 each Escitalopram [ (Lexapro] 20mg) 1 each PO DAILY [facility] Last Admin: 11/16/19 09:09 Dose: 1 each Lisinopril 10 Mg Tab 1 each PO DAILY [facility] Last Admin: 11/16/19 09:11 Dose: 1 each Oxybutynin 5 Mg Tab 1 each PO BEDTIME [facility] Last Admin: 11/15/19 22:10 Dose: 1 each Simvastatin 10 Mg (Tab) 1 each PO BEDTIME [facility] Last Admin: 11/15/19 22:10 Dose: 1 each Sucralfate 1 Gm Tab 1 each PO QIDACANDBED [facility] Last Admin: 11/16/19 12:52 Dose: 1 each Venlafaxine 75 Mg (Cap.Er) 1 each PO DAILY [facility] Last Admin: 11/16/19 09:10 Dose: 1 each Sodium Chloride (Saline Flush) 2.5 ml FLUSH ASDIRECTED PRN PRN Reason: Keep Vein Open Sodium Chloride (Saline Flush) 10 ml FLUSH ASDIRECTED PRN PRN Reason: Keep Vein Open Sodium Chloride (Saline Flush) 2.5 ml FLUSH ASDIRECTED PRN PRN Reason: Keep Vein Open Discontinued Medications Dicyclomine HCl (Bentyl) 20 mg PO ONETIME ONE Stop: 11/13/19 21:34 Last Admin: 11/13/19 21:41 Dose: 20 mg Diphenhydramine HCl (Benadryl) 25 mg IVPUSH ONETIME ONE Stop: 11/14/19 09:52 Last Admin: 11/14/19 10:56 Dose: 25 mg Sodium Chloride (Normal Saline) 1,000 mls @ 999 mls/hr IV BOLUS ONE Stop: 11/13/19 22:32 Last Admin: 11/13/19 21:40 Dose: 999 mls/hr Pantoprazole Sodium 40 mg/ (Sodium Chloride) 10 mls @ 300 mls/hr IV NOW ONE Stop: 11/13/19 23:16 Last Admin: 11/13/19 23:32 Dose: 300 mls/hr Insulin Aspart (Novolog) 0 unit SUBCUT Q6H [facility]; Protocol Last Admin: 11/15/19 18:01 Dose: Not Given Metoclopramide HCl (Reglan) 10 mg IVPUSH ONETIME ONE Stop: 11/14/19 09:52 Last Admin: 11/14/19 11:00 Dose: 10 mg Ondansetron HCl (Zofran) 4 mg IVPUSH ONETIME ONE Stop: 11/13/19 21:33 Last Admin: 11/13/19 21:41 Dose: 4 mg Ondansetron HCl (Zofran Odt) 4 mg PO ONETIME ONE Stop: 11/15/19 08:29 Last Admin: 11/15/19 08:48 Dose: 4 mg
== END 2019-11-16 15:00 | disposition home or self-care (01) | DRG 683 ==
LOC: MW.ED 21:03 → UNDOADMOB 23:50 → MW.MS 23:50 → INTOOBSV 11-15 18:03 → OBSVTOIN 11-15 18:03 → MW.MS 11-15 19:16
PROVIDERS: ADMIT Internal Medicine; ATTEND Internal Medicine
DX: N17.9 Acute kidney failure, unspecified (principal); N39.0 Urinary tract infection, site not specified; G43.909 Migraine, unspecified, not intractable, without status migrainosus; G43.709 Chronic migraine without aura, not intractable, without status migrainosus; J44.9 Chronic obstructive pulmonary disease, unspecified; K57.90 Diverticulosis of intestine, part unspecified, without perforation or abscess without bleeding; F41.9 Anxiety disorder, unspecified; F32.9 Major depressive disorder, single episode, unspecified; I10 Essential (primary) hypertension; Z86.19 Personal history of other infectious and parasitic diseases; R11.2 Nausea with vomiting, unspecified; Z99.81 Dependence on supplemental oxygen; T39.395A Adverse effect of other nonsteroidal anti-inflammatory drugs [NSAID], initial encounter; R19.5 Other fecal abnormalities; E86.0 Dehydration; Z79.52 Long term (current) use of systemic steroids; Z79.899 Other long term (current) drug therapy; Z87.442 Personal history of urinary calculi; Z87.891 Personal history of nicotine dependence
CPT/HCPCS: 36415 ×3; 74176; 80048; 80053 ×2; 81001; 82272; 82962 ×7; 83690; 85025 ×4; 85610; 85730; 86592; 87338; 94640; A9270 ×4; C9113 ×4; J0696 ×2; J1200; J1815; J2405; J2765; J7030 ×6; J7050 ×4; 70450; 70450-26; 86593; 87491; 87529; 87591; 96361; 96365; 96374; 96375; 96376; 99283; 99285-25; G0378; J7620-GY

== ENCOUNTER 2019-12-25 17:48 | Emergency (ER) | payer MEDICARE, MEDICAID, OTHER ==
[2019-12-25] MEDS ORDERED: Acetaminophen 500 MG Tab PO ONE (18:25)
[2019-12-25] MEDS ORDERED: Sodium Chloride 0.9% 2.5 ML Syringe FLUSH PRN (18:25)
[2019-12-25] MEDS ORDERED: cefTRIAXone 2 GM in Premix Bag 1 BAG IV ONE (18:25)
[2019-12-25] MEDS ORDERED: Sodium Chloride 0.9% 10 ML Syringe FLUSH PRN (18:25)
[2019-12-25] MEDS ORDERED: Dexamethasone 10 MG/ML SDV IVPUSH ONE (18:25)
--- NOTE | 2019-12-25 18:42 | EDM.PDOC ---
<Addy Leo - Last Filed: 12/25/19 18:37> ED HPI GENERAL MEDICAL PROBLEM - General Chief Complaint: Chest Pain Stated Complaint: CHEST PAIN, SHORT OF BREATH Time Seen by Provider: 12/25/19 17:56 - History of Present Illness INITIAL COMMENTS - FREE TEXT/NARRATIVE: HISTORY AND PHYSICAL: History of present illness: This 64-year-old female with a past medical history of hypertension, hyperlipidemia, COPD, oxygen requirement of 2 L/min by nasal cannula reports emergency department with pleuritic type chest pain in the right anterior chest especially lateral towards the armpit. She also complains of body aches, runny nose, cough, subjective fevers and feeling generally terrible. This is gradually worsened over the last several days. 6 weeks ago she was tested for COVID-19 and it was negative. Review of systems: A 10-point review of systems, other than pertinent positives and negatives as stated per HPI, is otherwise negative. Past medical history: As per history of present illness and as reviewed below otherwise noncontributory. Surgical history: As per history of present illness and as reviewed below otherwise noncontributory. Social history: No reported history of drug or alcohol abuse. Family history: As per history of present illness and as reviewed below otherwise noncontributory. Physical exam: VITAL SIGNS: Reviewed. GENERAL: Appears to be in mild to moderate distress. HEAD: No signs of head trauma. EYES: Pupils are equal. Extraocular motions intact. EARS: Hearing grossly intact. MOUTH: Oropharynx is normal. NECK: No adenopathy, no JVD. CHEST: Bilateral rhonchi. No wheezing. CARDIAC: Tachycardic rate. Regular rhythm. S1-S2 are present. Do not appreciate a murmur. VASCULAR: Peripheral pulses normal and equal in all extremities. ABDOMEN: Soft, without detectable tenderness. No sign of distention. No rebound or guarding, and no masses palpated. MUSCULOSKELETAL: Good range of motion of all major joints. Extremities without clubbing, cyanosis or edema. NEUROLOGIC EXAM: Alert and oriented x 3. No focal sensory or motor deficits. Speech normal. Follows commands. PSYCHIATRIC: Mood normal. SKIN: No rash or lesions. Initial Differential Diagnosis & Plan: Cough: Differential diagnosis includes pneumonia, bronchitis upper respiratory infection, influenza/influenza-like illness, asthma or chronic obstructive pulmonary disease, congestive heart failure Moderate suspicion for COVID-19 given pandemic COVID-19 outbreak in the patient's or factors. I will perform a lung ultrasound. Chest x-ray. Labs. And reevaluate. Definitive disposition and diagnosis as appropriate pending reevaluation and review of above. chest Pain Score (Numeric/FACES): 8 - Related Data Allergies Allergy/AdvReac Type Severity Reaction Status Date / Time No Known Allergies Allergy Verified 12/25/19 18:29 Home Meds: Home Meds Venlafaxine HCl [Venlafaxine ER] 75 mg PO DAILY 09/22/18 [History] cloNIDine [Catapres] 0.1 mg PO BID 09/22/18 [History] Umeclidinium Sylvester [Incruse Ellipta*] 1 puff IH DAILY 05/19/19 [History] Albuterol [Ventolin HFA] 2 puff INH Q4HRRT PRN 08/06/19 [History] Escitalopram [Lexapro] 20 mg PO DAILY 08/06/19 [History] Oxybutynin 5 mg PO BEDTIME 08/06/19 [History] lisinopriL [Zestril] 10 mg PO DAILY 08/06/19 [History] Simvastatin [Zocor] 10 mg PO BEDTIME 09/01/19 [History] Acetaminophen [Tylenol] 650 mg PO Q6H PRN #20 tablet 11/16/19 [Rx] Ciprofloxacin [Cipro XR 500 MG Tablet] 500 mg PO DAILY 3 Days #3 tab.er 11/16/19 [Rx] Omeprazole 20 mg PO ACBREAKFAST #30 cap.sr 11/16/19 [Rx] Sucralfate [Carafate] 1 gm PO QIDACANDBED #120 tablet 11/16/19 [Rx] Past Medical History - Past Health History Medical/Surgical History: Denies Medical/Surgical History HEENT History: Reports: None Cardiovascular History: Reports: Hypertension Respiratory History: Reports: COPD, Other (See Below) Other Respiratory History: Home O2 @ 2LPM Gastrointestinal History: Reports: Diverticulosis Genitourinary History: Reports: Other (See Below) Other Genitourinary History: kidney stones INTERVENTIONAL TECH History: Reports: Musculoskeletal History: Reports: None Neurological History: Reports: None Psychiatric History: Reports: Addiction, Anxiety, Depression Endocrine/Metabolic History: Reports: None Insulin Pump Model and Graphics Artist: None Hematologic History: Reports: None Immunologic History: Reports: None Oncologic (Cancer) History: Reports: None Dermatologic History: Reports: None - Infectious Disease History Infectious Disease History: Reports: Hepatitis C Other Infectious Disease History: unsure of which kind of hepatitis - Past Surgical History Head Surgeries/Procedures: Reports: None HEENT Surgical History: Reports: None Cardiovascular Surgical History: Reports: None Respiratory Surgical History: Reports: None GI Surgical History: Reports: Appendectomy Female Surgical History: Reports: None Endocrine Surgical History: Reports: None Neurological Surgical History: Reports: None Musculoskeletal Surgical History: Reports: Other (See Below) Other Musculoskeletal Surgeries/Procedures:: rt shoulder surg Oncologic Surgical History: Reports: None Dermatological Surgical History: Reports: None Social & Family History - Family History Family Medical History: Noncontributory Respiratory: Reports: Asthma, COPD : Reports: Renal Disease/Insufficiency Psychiatric: Reports: Anxiety, Depression Endocrine/Metabolic: Reports: Diabetes, type II Oncologic: Reports: Hodgkin's Lymphoma - Tobacco Use Smoking Status *Q: Never Smoker - Caffeine Use Caffeine Use: Reports: None Caffeine Use Comment: 5 cups avg per day - Recreational Drug Use Recreational Drug Use: No - Living Situation & Occupation Living situation: Reports: Single ED ROS GENERAL - Review of Systems Review Of Systems: See Below (Noted above) ED EXAM, GENERAL - Physical Exam Exam: See Below (Noted above) ED RESPIRATORY PROCEDURES - Additional/Other Procedure(s) Other (Free Text) Procedure(s): Procedure Note: Physician placed IV Due to difficult or critical IV access situation I have placed an IV for treatment and circulatory access. Location: Right biceps vein, 20-gauge angiocatheter Complications: None PROCEDURE: Ultrasound guidance of needle placement Indication: Guidance of needle for procedure Performed and interpreted by myself: Images archived Findings: 1. Targeted structure identified 2. Distance from the skin noted 3. Surrounding vascular and nerve structures noted Interpretation: Ultrasound guidance of needle to increase safety and accuracy of procedure. Signed by Addy Leo M.D. Procedure Note: Chest/Pulmonary Ultrasound Self-performed and read; images archived Location: Chest - Bilateral anterior Indication: Evaluation for dyspnea Probe: phased array -3 areas of distinct focal B-lines. -1 area of consolidation in the right lateral chest wall/armpit -1 area of waterfall sign near this. Impression: 1. Moderate to high suspicion for COVID-19 2. Distinct effusions seen 3. Concern for focal pneumonia with underlying COPD Signed by Addy Leo MD Critical Care Note: The patient presented in critical status due to pneumonia requiring IV antibio tics The patient required rapid exam, decision making, and frequent re-evaluations during their time in the Emergency Department. Total Critical Care time exclusive of all other billable procedure time provided by myself 45 minutes EKG INTERPRETATION EKG Interpretation Comments: 12 lead EKG interpretation Obtained: December 25, 2019 at 1751 hrs. Rhythm: Sinus Rate: 84 [place]: Normal Intervals: Biatrial enlargement ST/T Segments: No acute ischemic changes Interpretation: Sinus rhythm with biatrial enlargement Course - Re-Assessments/Exams Free Text/Narrative Re-Assessment/Exam: 12/25/19 18:43 At 1900 hrs. I will sign out to the oncoming physician, Dr. Louise, and he will follow-up on the patient's official chest x-ray read, CT angios, remaining labs. I have given the patient intravenous antibiotics, intravenous steroids, and the patient may require admission. She has moderate to high probability for COVID- 19 and a COVID-19 swab has been sent. Given the appearance of her chest x-ray and lack of a chest CT on file with this patient I am concerned for underlying malignancy, pulmonary infarct secondary to pulmonary embolism, focal pneumonia, and COVID-[address] will be required to properly diagnose underlying condition. She does not have an increased oxygen requirement which is reassuring. My diagnostic impression; 1. Pneumonia 2. Sepsis 3. High probability to moderate probability for COVID-19 infection Departure - Departure Disposition: DC/Tfer to Other 70 Clinical Impression: HCAP (healthcare-associated pneumonia), Hypoxia - Discharge Information Instructions: Hypoxemia Referrals: PCP,None [Primary Care Provider] - Forms: ED Department Discharge Sepsis Event Note (ED) - Evaluation Sepsis Screening Result: No Definite Risk <Galindo Louise - Last Filed: 12/25/19 21:55> Course - Vital Signs Last Recorded V/S: Last Vital Signs Temp 97.8 F 12/25/19 18:00 Pulse 67 12/25/19 20:57 Resp 29 H 12/25/19 20:57 BP 122/78 12/25/19 20:57 Pulse Ox 94 L 12/25/19 20:57 - Orders/Labs/Meds Orders: Active Orders 24 hr Category Date Time Status Cardiac Monitoring [RC] . DIRECTED Care 12/25/19 18:25 Active EKG Documentation Completion [RC] STAT Care 12/25/19 18:27 Active Pulse Oximetry [RC] ASDIRECTED Care 12/25/19 18:25 Active CULTURE BLOOD [BC] Stat Lab 12/25/19 18:18 Received CULTURE BLOOD [BC] Stat Lab 12/25/19 18:42 Received PROCALCITONIN [REF] Stat Lab 12/25/19 18:42 Received Azithromycin [Zithromax] 500 mg Med 12/25/19 18:45 Active Sodium Chloride 0.9% [Normal Saline (AdvBag)] 250 ml IV ONETIME Sodium Chloride 0.9% [Saline Flush] Med 12/25/19 18:25 Active 10 ml FLUSH ASDIRECTED PRN Sodium Chloride 0.9% [Saline Flush] Med 12/25/19 18:25 Active 2.5 ml FLUSH ASDIRECTED PRN Blood Culture x2 Reflex Set [OM.PC] Stat Oth 12/25/19 18:26 Ordered Saline Lock Insert [OM.PC] Stat Oth 12/25/19 18:25 Ordered Medication Orders Azithromycin 500 mg/ Sodium (Chloride) 250 mls @ 250 mls/hr IV ONETIME YASIR Last Admin: 12/25/19 20:56 Dose: 250 mls/hr Documented by: MARISSA Sodium Chloride (Saline Flush) 10 ml FLUSH ASDIRECTED PRN PRN Reason: Keep Vein Open Sodium Chloride (Saline Flush) 2.5 ml FLUSH ASDIRECTED PRN PRN Reason: Keep Vein Open Labs: Laboratory Tests 12/25/19 12/25/19 12/25/19 Range/Units 18:18 18:18 18:18 WBC 11.36 H (4.0-11.0) K/uL RBC 4.85 (4.30-5.90) M/uL Hgb 13.4 (12.0-16.0) g/dL Hct 41.1 (36.0-46.0) % MCV 84.7 (80.0-98.0) fL MCH 27.6 (27.0-32.0) pg MCHC 32.6 (31.0-37.0) g/dL RDW Std Deviation 41.4 (28.0-62.0) fl RDW Coeff of Jamil 13 (11.0-15.0) % Plt Count 327 (150-400) K/uL MPV 9.30 (7.40-12.00) fL Neut % (Auto) 67.8 (48.0-80.0) % Lymph % (Auto) 21.8 (16.0-40.0) % Wise % (Auto) 7.1 (0.0-15.0) % Eos % (Auto) 3.0 (0.0-7.0) % Baso % (Auto) 0.3 (0.0-1.5) % Neut # (Auto) 7.7 H (1.4-5.7) K/uL Lymph # (Auto) 2.5 H (0.6-2.4) K/uL Wise # (Auto) 0.8 (0.0-0.8) K/uL Eos # (Auto) 0.3 (0.0-0.7) K/uL Baso # (Auto) 0.0 (0.0-0.1) K/uL Nucleated RBC % 0.0 /100WBC Nucleated RBCs # 0 K/uL INR APTT (18.6-31.3) SEC D-Dimer, Quantitative (0.0-0.50) mg/L FEU ABG pH (7.35-7.45) ABG pCO2 (35-45) mmHG ABG pO2 (75-100) mmHG ABG HCO3 (22-26) mEq/L ABG Total CO2 ABG Base Excess (-2.0-2.0) Lactate 1.2 (0.20-2.00) mmol/L Sodium 135 L (136-145) mmol/L Potassium 4.0 (3.5-5.1) mmol/L Chloride 98 (98-107) mmol/L Carbon Dioxide 24.6 (21.0-32.0) mmol/L BUN 22 H (7.0-18.0) mg/dL Creatinine 1.1 H (0.6-1.0) mg/dL Est Cr Clr Drug Dosing 48.73 mL/min Estimated GFR (MDRD) 50.2 ml/min Glucose 95 (74-106) mg/dL Calcium 9.7 (8.5-10.1) mg/dL Magnesium 1.8 (1.8-2.4) mg/dL Total Bilirubin 0.2 (0.2-1.0) mg/dL AST 14 L (15-37) IU/L ALT 16 (14-63) IU/L Alkaline Phosphatase 131 H (46-116) U/L Troponin I < 0.050 (0.000-0.056) ng/mL Total Protein 8.8 H (6.4-8.2) g/dL Albumin 3.5 (3.4-5.0) g/dL Globulin 5.3 H (2.6-4.0) g/dL Albumin/Globulin Ratio 0.7 L (0.9-1.6) COVID-19 (ONOFRE) (NEGATIVE) 12/25/19 12/25/19 12/25/19 Range/Units 18:18 18:43 18:47 WBC (4.0-11.0) K/uL RBC (4.30-5.90) M/uL Hgb (12.0-16.0) g/dL Hct (36.0-46.0) % MCV (80.0-98.0) fL MCH (27.0-32.0) pg MCHC (31.0-37.0) g/dL RDW Std Deviation (28.0-62.0) fl RDW Coeff of Jamil (11.0-15.0) % Plt Count (150-400) K/uL MPV (7.40-12.00) fL Neut % (Auto) (48.0-80.0) % Lymph % (Auto) (16.0-40.0) % Wise % (Auto) (0.0-15.0) % Eos % (Auto) (0.0-7.0) % Baso % (Auto) (0.0-1.5) % Neut # (Auto) (1.4-5.7) K/uL Lymph # (Auto) (0.6-2.4) K/uL Wise # (Auto) (0.0-0.8) K/uL Eos # (Auto) (0.0-0.7) K/uL Baso # (Auto) (0.0-0.1) K/uL Nucleated RBC % /100WBC Nucleated RBCs # K/uL INR 0.98 APTT 29.6 (18.6-31.3) SEC D-Dimer, Quantitative 0.76 H (0.0-0.50) mg/L FEU ABG pH 7.383 (7.35-7.45) ABG pCO2 39 (35-45) mmHG ABG pO2 71 L (75-100) mmHG ABG HCO3 23 (22-26) mEq/L ABG Total CO2 21.1 ABG Base Excess -1.7 (-2.0-2.0) Lactate (0.20-2.00) mmol/L Sodium (136-145) mmol/L Potassium (3.5-5.1) mmol/L Chloride (98-107) mmol/L Carbon Dioxide (21.0-32.0) mmol/L BUN (7.0-18.0) mg/dL Creatinine (0.6-1.0) mg/dL Est Cr Clr Drug Dosing mL/min Estimated GFR (MDRD) ml/min Glucose (74-106) mg/dL Calcium (8.5-10.1) mg/dL Magnesium (1.8-2.4) mg/dL Total Bilirubin (0.2-1.0) mg/dL AST (15-37) IU/L ALT (14-63) IU/L Alkaline Phosphatase (46-116) U/L Troponin I (0.000-0.056) ng/mL Total Protein (6.4-8.2) g/dL Albumin (3.4-5.0) g/dL Globulin (2.6-4.0) g/dL Albumin/Globulin Ratio (0.9-1.6) COVID-19 (ONOFRE) NEGATIVE (NEGATIVE) Meds: Medications Generic Name Dose Route Start Last Admin Trade Name Freq PRN Reason Stop Dose Admin Azithromycin 500 mg/ Sodium 250 mls @ 250 mls/hr 12/25/19 18:45 12/25/19 20:56 Chloride IV 250 mls/hr ONETIME YASIR Administration Sodium Chloride 10 ml 12/25/19 18:25 Saline Flush FLUSH ASDIRECTED PRN Keep Vein Open Sodium Chloride 2.5 ml 12/25/19 18:25 Saline Flush FLUSH ASDIRECTED PRN Keep Vein Open Discontinued Medications Generic Name Dose Route Start Last Admin Trade Name Nancy PRN Reason Stop Dose Admin Acetaminophen 1,000 mg 12/25/19 18:25 12/25/19 19:28 Tylenol Extra Strength PO 12/25/19 18:26 1,000 mg ONETIME ONE Administration Dexamethasone 10 mg 12/25/19 18:25 12/25/19 19:28 Dexamethasone IVPUSH 12/25/19 18:26 10 mg ONETIME ONE Administration Ceftriaxone Sodium/Dextrose 2 50 mls @ 100 mls/hr 12/25/19 18:25 12/25/19 19:30 gm/ Premix IV 12/25/19 18:54 100 mls/hr ONETIME ONE Administration Azithromycin 500 mg/ Sodium 250 mls @ 250 mls/hr 12/25/19 21:00 Chloride IV ONETIME YASIR Iopamidol 50 ml 12/25/19 21:03 12/25/19 21:04 Isovue-370 (76%) IV 12/25/19 21:04 50 ml ONETIME STA Administration - Re-Assessments/Exams Free Text/Narrative Re-Assessment/Exam: 12/25/19 1900: This patient was signed out to me from Dr. Leo at this time. I promptly performed a detailed physical examination, my examination was performed after ED treatments were initiated by the signout provider. Patient has been under the care of the previous provider up until this point. Patient also notes an additional history of 15 pound weight loss over the last 4 months. She lives with people that smoke cigarettes. She denies history of lung cancer. 12/25/19 2135: I discussed the case with Dr. Young, she recommends transfer to outside facility for the need of bronchoscopy not available at this facility, and the need for data processing systems consultant services unavailable at this facility. Any emergency conditions have been stabilized to the ability of the ED prior to the transfer. Case was discussed with transfer center and transfer arranged to outside facility/higher level of care. 12/25/19 21:55: Case discussed with Dr. Medley at [facility], will accept transfer. Departure - Departure Time of Disposition: 21:36 Condition: Good - Discharge Information *PRESCRIPTION DRUG MONITORING PROGRAM REVIEWED*: Not Applicable *COPY OF PRESCRIPTION DRUG MONITORING REPORT IN PATIENT KARIE: Not Applicable Critical Care Note - Critical Care Note Comments: Critical Care: The high probability of sudden, clinically significant deterioration in the patient's condition required the highest level of my preparedness to intervene urgently. The services I provided to this patient were to treat and/or prevent clinically significant deterioration. Services included the following: chart data review, reviewing nursing notes and/or old charts, documentation time, data processing systems consultant collaboration regarding findings and treatment options, medication orders and management, direct patient care, vital sign assessments and ordering, interpreting and reviewing diagnostic studies/lab tests. Aggregate critical care time includes only time during which I was engaged in work directly related to the patient's care, as described above, whether at the bedside or elsewhere in the Emergency Department. It did not include time spent performing other reported procedures or the services of residents, students, nurses or physician assistants. Frequent interventions and/or frequent repeat evaluations were required as well as counseling and coordination of care regarding prognosis, treatments, and discussions with patient, staff and consultants. Critical Care (excluding other procedures): 40 minutes Sepsis Event Note (ED) - Focused Exam Vital Signs: Vital Signs Temp Pulse Resp BP Pulse Ox 12/25/19 20:57 67 29 H 122/78 94 L 12/25/19 18:00 97.8 F 91 18 138/96 H 92 L
[2019-12-25] MEDS ORDERED: Azithromycin 500 MG in Sodium Chloride 0.9% 250 ML IV SCH ×2 (18:45→21:00)
[2019-12-25 18:50] LABS: BLOOD UREA NITROGEN,BUN 22 mg/dL (7.0-18.0); CARBON DIOXIDE,CO2 24.6 mmol/L (21.0-32.0); CHLORIDE,CL 98 mmol/L (98-107); GLUCOSE RANDOM 95 mg/dL (74-106); SODIUM,NA 135 mmol/L (136-145)
--- NOTE | 2019-12-25 18:54 | CR ---
Chest: Portable view of the chest was obtained. Comparison: Prior chest CT study of 03/26/19 and chest x-ray of 10/17/19. Triangular density is seen radiating from the right hilum into the right lung. This occurs in an area of previous presumed pneumonia. This most likely represents dense area of scarring or atelectasis although contrast enhanced chest CT recommended to rule out underlying mass. Lungs otherwise are clear. Heart size is normal. Bony structures are grossly intact. Impression: 1. Triangular density rating from the right hilum which may represent thick area of atelectasis or scarring although difficult to exclude superimposed lung mass. Contrast-enhanced chest CT recommended which can be performed non-emergently. 2. No additional abnormality is seen on portable chest x-ray. Diagnostic code #9 This report was dictated in MDT
[2019-12-25] MEDS ORDERED: Iopamidol 755 MG/ML 50 ML Bottle IV STA (21:03)
--- NOTE | 2019-12-25 21:16 | CT ---
CT chest Technique: Multiple axial sections through the chest were obtained. Intravenous contrast was utilized. Pulmonary arteries are well opacified. No filling defects are seen to indicate pulmonary embolism. Aorta shows no aneurysm or dissection. Diffuse emphysematous changes are seen. Parenchymal densities are noted within the anterior right upper lung with consolidation within a portion of the right midlung which has the appearance of atelectasis. There appears to be obstruction of the adjacent bronchi. Soft tissue abnormality is noted adjacent to the pulmonary artery and right hilum possibly due to mass. Lungs are otherwise clear. Impression: 1. Right midlung dense atelectasis as well as right upper lung parenchymal density. Given the emphysematous change difficult to exclude neoplasm as the etiology for the findings causing obstruction of the adjacent bronchi and possible atelectasis and postobstructive pneumonia. Soft tissue fullness adjacent to the right pulmonary artery and within the right hilum may represent a neoplasm. 2. No findings of pulmonary embolism. No aortic aneurysm or dissection. No other acute finding is seen. Diagnostic code #9 This report was dictated in MDT
[2019-12-26 03:27] VITALS: BP 114/68; PULSE 68
== END 2019-12-26 | disposition other institution (70) ==
LOC: MW.ED 17:48
DX: J18.9 Pneumonia, unspecified organism (principal); R09.02 Hypoxemia; I10 Essential (primary) hypertension; J44.9 Chronic obstructive pulmonary disease, unspecified; F41.9 Anxiety disorder, unspecified; F32.9 Major depressive disorder, single episode, unspecified; Z20.828 Contact with and (suspected) exposure to other viral communicable diseases; Z79.899 Other long term (current) drug therapy
CPT/HCPCS: 36415; 36600; 71045; 71275; 80053; 82803; 83605; 83735; 84145; 84484; 85025; 85379; 85610; 85730; 87040; 93005; 96365; 96367; 99291; A9270; J0456; J0696; J1100; J7050; Q9967; U0002; 93010

== ENCOUNTER 2020-01-17 20:24 | Emergency (ER) | payer MEDICARE, MEDICAID, OTHER ==
[2020-01-17] MEDS ORDERED: Sodium Chloride 0.9% 2.5 ML Syringe FLUSH PRN (20:31)
[2020-01-17] MEDS ORDERED: Sodium Chloride 0.9% 10 ML Syringe FLUSH PRN (20:31)
[2020-01-17] MEDS ORDERED: methylPREDNISolone Sodium Succinate 125 MG/2 ML SDV ONE (20:47)
--- NOTE | 2020-01-17 20:49 | CR ---
INDICATION: Shortness of breath. Chest pain. TECHNIQUE: AP portable upright chest. FINDINGS: Mild hyperinflation. Attenuation of the pulmonary vascularity. Clear left lung. Thickening along the right major fissure. This could reflect pleural thickening or a small amount of fluid in the fissure less likely. Comparison or follow-up suggested. No evidence for congestive heart failure, pneumothoraces, or focal infiltrate. IMPRESSION: 1. Probable emphysematous type change. 2. Pleural thickening or fluid within the right major fissure less likely. Dictated by Ruddy Hoang MD @ Jan 17 2020 8:48PM Signed by Dr. Ruddy Hoang @ Jan 17 2020 8:48PM
[2020-01-17] MEDS ORDERED: propofoL 100 ML ONE (21:04)
[2020-01-17] MEDS ORDERED: Midazolam 1 MG/ML 2 ML SDV ONE (21:09)
[2020-01-17] MEDS ORDERED: Midazolam 1 MG/ML 2 ML SDV IVPUSH ONE (21:11)
[2020-01-17] MEDS ORDERED: propofoL 100 ML IV SCH (21:15)
[2020-01-17] MEDS ORDERED: fentaNYL 100 MCG/2 ML SDV IVPUSH PRN (21:17)
[2020-01-17] MEDS ORDERED: fentaNYL 100 MCG/2 ML SDV ONE (21:17)
[2020-01-17 21:30] LABS: BLOOD UREA NITROGEN,BUN 35 mg/dL (7.0-18.0); CHLORIDE,CL 101 mmol/L (98-107); GLUCOSE RANDOM 87 mg/dL (74-106); POTASSIUM,K 5.5 mmol/L (3.5-5.1); SODIUM,NA 133 mmol/L (136-145)
[2020-01-17] MEDS ORDERED: Cefepime 2 GM in Premix Bag 1 BAG IV ONE (21:33)
--- NOTE | 2020-01-17 21:47 | EDM.PDOC ---
ED HPI GENERAL MEDICAL PROBLEM - General Chief Complaint: Chest Pain Stated Complaint: TROUBLE BREATHING Time Seen by Provider: 01/17/20 20:26 Source of Information: Reports: Patient, EMS History Limitations: Reports: Respiratory Distress - History of Present Illness INITIAL COMMENTS - FREE TEXT/NARRATIVE: 64F extensive PMHx, chronic respiratory failure on 2-L home O2, COPD, CHF, h/o IVDA, h/o alcoholism, Hepatitis C, TOB use, HTN, HLD, recent discovered "mass on my lungs" s/p biopsy at [facility] last week, recently d/c'ed from hospital 3 days ago, being treated for PNA. Presents for respiratory distress worsening over last 3 days since discharge. Notes minimally productive cough. History limited 2/2 respiratory distress. - Related Data Allergies Allergy/AdvReac Type Severity Reaction Status Date / Time No Known Allergies Allergy Verified 12/25/19 18:29 Home Meds: Home Meds Venlafaxine HCl [Venlafaxine ER] 75 mg PO DAILY 09/22/18 [History] cloNIDine [Catapres] 0.1 mg PO BID 09/22/18 [History] Umeclidinium [place] [Incruse Ellipta*] 1 puff IH DAILY 05/19/19 [History] Albuterol [Ventolin HFA] 2 puff INH Q4HRRT PRN 08/06/19 [History] Escitalopram [Lexapro] 20 mg PO DAILY 08/06/19 [History] Oxybutynin 5 mg PO BEDTIME 08/06/19 [History] lisinopriL [Zestril] 10 mg PO DAILY 08/06/19 [History] Simvastatin [Zocor] 10 mg PO BEDTIME 09/01/19 [History] Acetaminophen [Tylenol] 650 mg PO Q6H PRN #20 tablet 11/16/19 [Rx] Ciprofloxacin [Cipro XR 500 MG Tablet] 500 mg PO DAILY 3 Days #3 tab.er 11/16/19 [Rx] Omeprazole 20 mg PO ACBREAKFAST #30 cap.sr 11/16/19 [Rx] Sucralfate [Carafate] 1 gm PO QIDACANDBED #120 tablet 11/16/19 [Rx] Past Medical History - Past Health History Medical/Surgical History: Denies Medical/Surgical History HEENT History: Reports: None Cardiovascular History: Reports: Hypertension Respiratory History: Reports: COPD, Other (See Below) Other Respiratory History: Home O2 @ 2LPM Gastrointestinal History: Reports: Diverticulosis Genitourinary History: Reports: Other (See Below) Other Genitourinary History: kidney stones DEVELOPMENT REP History: Reports: Musculoskeletal History: Reports: None Neurological History: Reports: None Psychiatric History: Reports: Addiction, Anxiety, Depression Endocrine/Metabolic History: Reports: None 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 Lining: None Hematologic History: Reports: None Immunologic History: Reports: None Oncologic (Cancer) History: Reports: None Dermatologic History: Reports: None - Infectious Disease History Infectious Disease History: Reports: Hepatitis C Other Infectious Disease History: unsure of which kind of hepatitis - Past Surgical History Head Surgeries/Procedures: Reports: None HEENT Surgical History: Reports: None Cardiovascular Surgical History: Reports: None Respiratory Surgical History: Reports: None GI Surgical History: Reports: Appendectomy Female Surgical History: Reports: None Endocrine Surgical History: Reports: None Neurological Surgical History: Reports: None Musculoskeletal Surgical History: Reports: Other (See Below) Other Musculoskeletal Surgeries/Procedures:: rt shoulder surg Oncologic Surgical History: Reports: None Dermatological Surgical History: Reports: None Social & Family History - Family History Family Medical History: Noncontributory Respiratory: Reports: Asthma, COPD : Reports: Renal Disease/Insufficiency Psychiatric: Reports: Anxiety, Depression Endocrine/Metabolic: Reports: Diabetes, type II Oncologic: Reports: Hodgkin's Lymphoma - Caffeine Use Caffeine Use: Reports: None Caffeine Use Comment: 5 cups avg per day - Living Situation & Occupation Living situation: Reports: Single ED ROS GENERAL - Review of Systems Review Of Systems: See Below (Limited 2/2 respiratory distress) ED EXAM, GENERAL - Physical Exam Exam: See Below Exam Limited By: Respiratory Distress General Appearance: Alert, Anxious, Moderate Distress, Severe Distress Throat/Mouth: Other (dry oral mucosa, no teeth (dentures taken out by patient)) Head: Atraumatic, Normocephalic Neck: Normal Inspection, Supple Respiratory/Chest: Respiratory Distress, Decreased Breath Sounds (symmetric), Wheezing, Accessory Muscle Use, Retractions, Other (tachypneic to 40s) Cardiovascular: Normal Peripheral Pulses, Regular Rate, Rhythm, No Edema GI/Abdominal: Soft, Non-Tender Extremities: Normal Inspection Neurological: Alert Psychiatric: Anxious Skin Exam: Warm, Dry ED RESPIRATORY PROCEDURES - Endotracheal Intubation Time of Intubation: 21:01 ET Intubation Indication: Respiratory Failure Preparation: Suction, Balloon Tested, BVM Set Up, Difficult Airway Equip Airway Assessment: Other (no teeth, dry oral mucosa) Pre-Oxygenation: Assisted with BVM, 100% FiO2 Anesthesia Meds: Etomidate, Succinylcholine Placement: Orotracheal Cords Visualized: Yes ETT Size In mm: 7 Number of Attempts: 1 Confirmed By: CO2 Indicator, Bilateral Breath Sounds, Chest Xray Tube Secured By: By RT Endotracheal Intubation Comment: Patient tolerated procedure without complications or desaturation events Course - Orders/Labs/Meds Orders: Active Orders 24 hr Category Date Time Status EKG Documentation Completion [] STAT Care 01/17/20 20:31 Active Blanco Catheter Insertion [Insert Urinary Catheter] [OM. Care 01/17/20 21:15 Ordered PC] Q24H Gastrointestinal Tube Mgmt [] ASDIRECTED Care 01/17/20 21:11 Active RASS Sedation Scale [] ASDIRECTED Care 01/17/20 21:08 Active RT Airway Intubation [] ASDIRECTED Care 01/17/20 21:11 Active Urinary Catheter Assessment [] ASDIRECTED Care 01/17/20 21:12 Active CULTURE BLOOD [BC] Stat Lab 01/17/20 20:43 Received Sodium Chloride 0.9% [Saline Flush] Med 01/17/20 20:31 Active 10 ml FLUSH ASDIRECTED PRN Sodium Chloride 0.9% [Saline Flush] Med 01/17/20 20:31 Active 2.5 ml FLUSH ASDIRECTED PRN fentaNYL [Sublimaze] Med 01/17/20 21:17 Active 50 mcg IVPUSH Q5M PRN propofoL [Diprivan 100 ML] 100 ml Med 01/17/20 21:15 Pending IV TITRATE Blood Culture x2 Reflex Set [OM.PC] Stat Oth 01/17/20 20:35 Ordered Desired Level of Sedation (RASS) [AST] Click to Edit Ot 01/17/20 21:08 Ordered Saline Lock Insert [OM.PC] Stat Ot 01/17/20 20:31 Ordered Medication Orders Fentanyl (Sublimaze) 50 mcg IVPUSH Q5M PRN PRN Reason: Sedation Propofol (Diprivan 100 Ml) 100 mls @ 0 mls/hr IV TITRATE YASIR; Protocol Sodium Chloride (Saline Flush) 10 ml FLUSH ASDIRECTED PRN PRN Reason: Keep Vein Open Sodium Chloride (Saline Flush) 2.5 ml FLUSH ASDIRECTED PRN PRN Reason: Keep Vein Open Labs: Laboratory Tests 01/17/20 01/17/20 01/17/20 Range/Units 20:48 20:48 20:48 WBC 9.10 (4.0-11.0) K/uL RBC 4.17 L (4.30-5.90) M/uL Hgb 11.3 L (12.0-16.0) g/dL Hct 35.1 L (36.0-46.0) % MCV 84.2 (80.0-98.0) fL MCH 27.1 (27.0-32.0) pg MCHC 32.2 (31.0-37.0) g/dL RDW Std Deviation 46.1 (28.0-62.0) fl RDW Coeff of Jamil 15 (11.0-15.0) % Plt Count 375 (150-400) K/uL MPV 10.90 (7.40-12.00) fL Add Manual Diff YES Neutrophils % (Manual) 40 L (48.0-80.0) % Band Neutrophils % 3 % Lymphocytes % (Manual) 28 (16.0-40.0) % Monocytes % (Manual) 23 H (0.0-15.0) % Eosinophils % (Manual) 6 (0.0-7.0) % Absolute Seg Neuts 3.6 (1.4-5.7) Band Neutrophils # 0.3 Lymphocytes # (Manual) 2.5 H (0.6-2.4) Monocytes # (Manual) 2.1 H (0.0-0.8) Eosinophils # (Manual) 0.5 (0.0-0.7) ABG pH (7.35-7.45) ABG pCO2 (35-45) mmHG ABG pO2 (75-100) mmHG ABG HCO3 (22-26) mEq/L ABG Total CO2 ABG Base Excess (-2.0-2.0) Lactate 1.1 (0.20-2.00) mmol/L Sodium 133 L (136-145) mmol/L Potassium 5.5 H (3.5-5.1) mmol/L Chloride 101 (98-107) mmol/L Carbon Dioxide 21.0 (21.0-32.0) mmol/L BUN 35 H (7.0-18.0) mg/dL Creatinine 1.9 H (0.6-1.0) mg/dL Est Cr Clr Drug Dosing TNP Estimated GFR (MDRD) 26.7 ml/min Glucose 87 (74-106) mg/dL Calcium 9.2 (8.5-10.1) mg/dL Total Bilirubin 0.2 (0.2-1.0) mg/dL AST 37 (15-37) IU/L ALT 46 (14-63) IU/L Alkaline Phosphatase 81 (46-116) U/L Troponin I < 0.050 (0.000-0.056) ng/mL Total Protein 8.5 H (6.4-8.2) g/dL Albumin 4.4 (3.4-5.0) g/dL Globulin 4.1 H (2.6-4.0) g/dL Albumin/Globulin Ratio 1.1 (0.9-1.6) Urine Color Urine Appearance Urine pH (5.0-8.0) Ur Specific [place] (1.001-1.035) Urine Protein (NEGATIVE) mg/dL Urine Glucose (UA) (NEGATIVE) mg/dL Urine Ketones (NEGATIVE) mg/dL Urine Occult Blood (NEGATIVE) Urine Nitrite (NEGATIVE) Urine Bilirubin (NEGATIVE) Urine Urobilinogen (<2.0) EU/dL Ur Leukocyte Esterase (NEGATIVE) COVID-19 (ONOFRE) (NEGATIVE) 01/17/20 01/17/20 01/17/20 Range/Units 21:23 21:26 21:26 WBC (4.0-11.0) K/uL RBC (4.30-5.90) M/uL Hgb (12.0-16.0) g/dL Hct (36.0-46.0) % MCV (80.0-98.0) fL MCH (27.0-32.0) pg MCHC (31.0-37.0) g/dL RDW Std Deviation (28.0-62.0) fl RDW Coeff of Jamil (11.0-15.0) % Plt Count (150-400) K/uL MPV (7.40-12.00) fL Add Manual Diff Neutrophils % (Manual) (48.0-80.0) % Band Neutrophils % % Lymphocytes % (Manual) (16.0-40.0) % Monocytes % (Manual) (0.0-15.0) % Eosinophils % (Manual) (0.0-7.0) % Absolute Seg Neuts (1.4-5.7) Band Neutrophils # Lymphocytes # (Manual) (0.6-2.4) Monocytes # (Manual) (0.0-0.8) Eosinophils # (Manual) (0.0-0.7) ABG pH 7.272 L (7.35-7.45) ABG pCO2 42 (35-45) mmHG ABG pO2 427 H (75-100) mmHG ABG HCO3 19 L (22-26) mEq/L ABG Total CO2 23 ABG Base Excess -7.1 L (-2.0-2.0) Lactate (0.20-2.00) mmol/L Sodium (136-145) mmol/L Potassium (3.5-5.1) mmol/L Chloride (98-107) mmol/L Carbon Dioxide (21.0-32.0) mmol/L BUN (7.0-18.0) mg/dL Creatinine (0.6-1.0) mg/dL Est Cr Clr Drug Dosing Estimated GFR (MDRD) ml/min Glucose (74-106) mg/dL Calcium (8.5-10.1) mg/dL Total Bilirubin (0.2-1.0) mg/dL AST (15-37) IU/L ALT (14-63) IU/L Alkaline Phosphatase (46-116) U/L Troponin I (0.000-0.056) ng/mL Total Protein (6.4-8.2) g/dL Albumin (3.4-5.0) g/dL Globulin (2.6-4.0) g/dL Albumin/Globulin Ratio (0.9-1.6) Urine Color YELLOW Urine Appearance CLEAR Urine pH 6.0 (5.0-8.0) Ur Specific [place] >= 1.030 (1.001-1.035) Urine Protein NEGATIVE (NEGATIVE) mg/dL Urine Glucose (UA) NEGATIVE (NEGATIVE) mg/dL Urine Ketones NEGATIVE (NEGATIVE) mg/dL Urine Occult Blood NEGATIVE (NEGATIVE) Urine Nitrite NEGATIVE (NEGATIVE) Urine Bilirubin NEGATIVE (NEGATIVE) Urine Urobilinogen 0.2 (<2.0) EU/dL Ur Leukocyte Esterase NEGATIVE (NEGATIVE) COVID-19 (ONOFRE) POSITIVE H (NEGATIVE) Meds: Medications Generic Name Dose Route Start Last Admin Trade Name Tristanq PRN Reason Stop Dose Admin Fentanyl 50 mcg 01/17/20 21:17 Sublimaze IVPUSH Q5M PRN Sedation Propofol 100 mls @ 0 mls/hr 01/17/20 21:15 Diprivan 100 Ml IV TITRATE YASIR Protocol 5 MCG/KG/MIN Sodium Chloride 10 ml 01/17/20 20:31 Saline Flush FLUSH ASDIRECTED PRN Keep Vein Open Sodium Chloride 2.5 ml 01/17/20 20:31 Saline Flush FLUSH ASDIRECTED PRN Keep Vein Open Discontinued Medications Generic Name Dose Route Start Last Admin Trade Name Tristanq PRN Reason Stop Dose Admin Fentanyl Confirm 01/17/20 21:17 Sublimaze Administered 01/17/20 21:18 Dose 100 mcg .ROUTE .STK-MED ONE Propofol Confirm 01/17/20 21:04 Diprivan 100 Ml Administered 01/17/20 21:05 Dose 100 mls @ as directed .ROUTE .STK-MED ONE Cefepime HCl 2 gm/ Premix 50 mls @ 100 mls/hr 01/17/20 21:33 IV 01/17/20 22:02 ONETIME ONE Cefepime HCl Confirm 01/17/20 22:11 Maxipime In D5w 1 Gm/50 Ml Administered 01/17/20 22:12 Dose 100 mls @ as directed .ROUTE .STK-MED ONE Methylprednisolone Sodium Succinate Confirm 01/17/20 20:47 Solu-Medrol Administered 01/17/20 20:48 Dose 125 mg .ROUTE .STK-MED ONE Midazolam HCl 4 mg 01/17/20 21:11 Versed 1 Mg/Ml IVPUSH 01/17/20 21:12 ONETIME ONE Midazolam HCl Confirm 01/17/20 21:09 Versed 1 Mg/Ml Administered 01/17/20 21:10 Dose 4 mg .ROUTE .STK-MED ONE - Re-Assessments/Exams Free Text/Narrative Re-Assessment/Exam: Patient intubated for severe respiratory distress. Labs and imaging pending Free Text/Narrative Re-Assessment/Exam: 01/17/20 22:[address] Hinojosa at [facility] who agrees to admit to ICU. Patient is COVID-19 positive. Otherwise labs are grossly remarkable. 01/17/20 22:36 Departure - Departure Time of Disposition: 22:37 Disposition: DC/Tfer to Critical Access 66 Condition: Critical Clinical Impression: COVID-19 Respiratory failure Qualifiers: Chronicity: acute on chronic Respiratory failure complication: unspecified whether with hypoxia or hypercapnia Qualified Code(s): J96.20 - Acute and chronic respiratory failure, unspecified whether with hypoxia or hypercapnia - Discharge Information Referrals: Elda Bran MD [Primary Care Provider] - Forms: ED Department Discharge Critical Care Note - Critical Care Note Total Time (mins): 60 Comments: I spent roughly 60 minutes of time caring for this patient with life threatening respiratory distress independent of time spent on separate billable procedures - My Orders Last 24 Hours: My Active Orders 01/17/20 21:08 RASS Sedation Scale [RC] ASDIRECTED Desired Level of Sedation (RASS) [AST] Click to Edit 01/17/20 21:11 Gastrointestinal Tube Mgmt [RC] ASDIRECTED RT Airway Intubation [RC] ASDIRECTED 01/17/20 21:12 Urinary Catheter Assessment [RC] ASDIRECTED 01/17/20 21:15 Blanco Catheter Insertion [Insert Urinary Catheter] [OM.PC] Q24H propofoL [Diprivan 100 ML] 100 ml IV TITRATE 01/17/20 21:17 fentaNYL [Sublimaze] 50 mcg IVPUSH Q5M PRN - Assessment/Plan Last 24 Hours: My Active Orders 01/17/20 21:08 RASS Sedation Scale [RC] ASDIRECTED Desired Level of Sedation (RASS) [AST] Click to Edit 01/17/20 21:11 Gastrointestinal Tube Mgmt [RC] ASDIRECTED RT Airway Intubation [RC] ASDIRECTED 01/17/20 21:12 Urinary Catheter Assessment [RC] ASDIRECTED 01/17/20 21:15 Blanco Catheter Insertion [Insert Urinary Catheter] [OM.PC] Q24H propofoL [Diprivan 100 ML] 100 ml IV TITRATE 01/17/20 21:17 fentaNYL [Sublimaze] 50 mcg IVPUSH Q5M PRN
--- NOTE | 2020-01-17 22:17 | CR ---
INDICATION: Intubation. TECHNIQUE: AP portable chest. COMPARISON: Portable chest performed earlier on the same date. FINDINGS: New endotracheal tube tip approximately 3-4 cm above the lucas. New enteric tube with its tip coiled back upon itself in the proximal stomach. Emphysematous type change. Pleural thickening or fluid within the right major fissure seen previously. Overall heart size is normal. IMPRESSION: Interval intubation. No pneumothorax. Enteric tube. Dictated by Ruddy Hoang MD @ Jan 17 2020 10:13PM Signed by Dr. Ruddy Hoang @ Jan 17 2020 10:14PM
[2020-01-18 00:09] VITALS: PULSE 100
== END 2020-01-17 23:00 | disposition critical access hospital (66) ==
LOC: MW.ED 20:24
DX: U07.1 COVID-19 (principal); J96.20 Acute and chronic respiratory failure, unspecified whether with hypoxia or hypercapnia; I10 Essential (primary) hypertension; J44.9 Chronic obstructive pulmonary disease, unspecified; F41.9 Anxiety disorder, unspecified; F32.9 Major depressive disorder, single episode, unspecified; Z79.899 Other long term (current) drug therapy
CPT/HCPCS: 31500; 36415; 36600; 43752; 51702; 71045; 80053; 81003; 82803; 83605; 84484; 85025; 87040; 93005; 96365; 96375; 99285; J0692; J2250; J2930; J3010; U0002; 93010

== ENCOUNTER 2020-02-18 09:17 | Emergency (ER) | payer MEDICARE, MEDICAID ==
[2020-02-18] MEDS ORDERED: Sodium Chloride 0.9% 2.5 ML Syringe FLUSH PRN (09:33)
[2020-02-18] MEDS ORDERED: Sodium Chloride 0.9% 10 ML Syringe FLUSH PRN (09:33)
[2020-02-18] MEDS ORDERED: Acetaminophen/HYDROcodone 325-5 MG Tab PO ONE (09:36)
--- NOTE | 2020-02-18 09:40 | EDM.PDOC ---
ED HPI GENERAL MEDICAL PROBLEM - General Chief Complaint: Trauma Stated Complaint: POSSIBLE BROKEN RIBS Time Seen by Provider: 02/18/20 09:27 - History of Present Illness INITIAL COMMENTS - FREE TEXT/NARRATIVE: History of present illness: [] HPI: The patient had a fall without loss of consciousness. First she said she fell against a table and injured her left forearm. When she was taken to the triage room to ascertain whether this patient is on a blood thinner is a trauma alert she said her head hurt and she probably headache. She also then complained that the worst pain she has is in the left side of her rib cage after the fall. This is the ipsilateral side where the arm was injured. It is possible she trapped her arm between her chest wall and the furniture and the most important impact his left chest wall. The patient says the pain is bad, constant, worse with inspiration, nothing makes it better. Movement makes it worse as well. It is sharp in nature. Says she was diagnosed with COVID-19 and in an induced coma briefly. She was diagnosed 3 weeks ago. She is asymptomatic and afebrile more than 10 days. She is on Xarelto for prevention of blood clots secondary to this recent diagnosis. Review of her recent admissions revealed that she was not on a blood thinner but further questioning reveals that she most likely was placed on that by providers out of town. Review of systems: As per history of present illness and below otherwise all systems reviewed and negative. Past medical history: As per history of present illness and as reviewed below otherwise noncontributory. Surgical history: As per history of present illness and as reviewed below otherwise noncontributory. Social history: No reported history of drug or alcohol abuse. Family history: As per history of present illness and as reviewed below otherwise noncontributory. Physical exam: Constitutional - well developed, well-nourished and in no acute distress HEENT -tenderness in the left parietal and temporal scalp with no deformity. Normocephalic, no evidence of trauma - external nose and mouth normal - no mass in neck and no JVD - mucosae moist is cleared by Nexus criteria. EYES - full EOM, PERRL, no icterus - no evidence of inflammation, injection, or drainage Respiratory - no respiratory distress, equal bilateral expansion, lungs clear to auscultation and no abnormal lung sounds Cardiovascular - Regular Rhythm with S1 and S2 appreciated and no murmur, gallop or rub. GI - abdomen soft without distension or organomegaly - normal bowel sounds - no guard or rebound Musculoskeletal tender left chest wall. Otherwise survey of the musculoskeletal system is negative for deformity or tenderness. No gross deformity of long bones or joints - no tenderness, swelling or edema Neurologic - Alert and oriented times four - CN II-XII grossly intact - motor sensory and coordination symmetrically normal Psychiatric - appropriate mood and affect with normal thought content Hematologic - No petechiae or purpura - mucosa appropriate color and sclera not pale - normal nail bed color and refill Integument -4 cm laceration in the left ulnar forearm in the proximal third. It appears to be a skin tear but may have dermal penetration. Will be reinvestigated after cleansing. No rash or evidence of trauma - normal turgor Diagnostics: [] Therapeutics: [] Impression: [] Plan: [] Definitive disposition and diagnosis as appropriate pending reevaluation and review of above. Left Chest Pain Score (Numeric/FACES): 10 - Related Data Allergies Allergy/AdvReac Type Severity Reaction Status Date / Time No Known Allergies Allergy Verified 02/18/20 09:53 Home Meds: Home Meds Venlafaxine HCl [Venlafaxine ER] 75 mg PO DAILY 09/22/18 [History] cloNIDine [Catapres] 0.1 mg PO BID 09/22/18 [History] Umeclidinium Adrian [Incruse Ellipta*] 1 puff IH DAILY 05/19/19 [History] Albuterol [Ventolin HFA] 2 puff INH Q4HRRT PRN 08/06/19 [History] Escitalopram [Lexapro] 20 mg PO DAILY 08/06/19 [History] Oxybutynin 5 mg PO BEDTIME 08/06/19 [History] lisinopriL [Zestril] 10 mg PO DAILY 08/06/19 [History] Simvastatin [Zocor] 10 mg PO BEDTIME 09/01/19 [History] Acetaminophen [Tylenol] 650 mg PO Q6H PRN #20 tablet 11/16/19 [Rx] Ciprofloxacin [Cipro XR 500 MG Tablet] 500 mg PO DAILY 3 Days #3 tab.er 11/16/19 [Rx] Omeprazole 20 mg PO ACBREAKFAST #30 cap.sr 11/16/19 [Rx] Sucralfate [Carafate] 1 gm PO QIDACANDBED #120 tablet 11/16/19 [Rx] Hydrocodone/Acetaminophen [Lucas 7.5-325 Tablet] 1 each PO Q4HR PRN #14 tablet 02/18/20 [Rx] Past Medical History - Past Health History Medical/Surgical History: Denies Medical/Surgical History HEENT History: Reports: None Other HEENT History: wears glasses Cardiovascular History: Reports: Hypertension Respiratory History: Reports: COPD, Other (See Below) Other Respiratory History: Home O2 @ 2LPM Gastrointestinal History: Reports: Diverticulosis Genitourinary History: Reports: Other (See Below) Other Genitourinary History: kidney stones [employer] History: Reports: Musculoskeletal History: Reports: None Neurological History: Reports: None Psychiatric History: Reports: Addiction, Anxiety, Depression Endocrine/Metabolic History: Reports: None Insulin Pump Model and [employer] Support Specialist: None Hematologic History: Reports: None Immunologic History: Reports: None Oncologic (Cancer) History: Reports: None Dermatologic History: Reports: None - Infectious Disease History Infectious Disease History: Reports: Hepatitis C Other Infectious Disease History: unsure of which kind of hepatitis - Past Surgical History Head Surgeries/Procedures: Reports: None HEENT Surgical History: Reports: None Cardiovascular Surgical History: Reports: None Respiratory Surgical History: Reports: None GI Surgical History: Reports: Appendectomy Female Surgical History: Reports: None Endocrine Surgical History: Reports: None Neurological Surgical History: Reports: None Musculoskeletal Surgical History: Reports: Other (See Below) Other Musculoskeletal Surgeries/Procedures:: rt shoulder surg Oncologic Surgical History: Reports: None Dermatological Surgical History: Reports: None Social & Family History - Family History Family Medical History: Noncontributory Respiratory: Reports: Asthma, COPD : Reports: Renal Disease/Insufficiency Psychiatric: Reports: Anxiety, Depression Endocrine/Metabolic: Reports: Diabetes, type II Oncologic: Reports: Hodgkin's Lymphoma - Caffeine Use Caffeine Use: Reports: None Caffeine Use Comment: 5 cups avg per day - Living Situation & Occupation Living situation: Reports: Single Review of Systems - Review of Systems Review Of Systems: Comprehensive ROS is negative, except as noted in HPI. ED EXAM, GENERAL - Physical Exam Exam: See Below Free Text/Narrative:: Sickle exam in the HPI. Course - Vital Signs Text/Narrative:: 0936 hrs. the patient has no pneumothorax on the portable chest which was viewed on the machine itself so that she could go to CT expeditiously. 11:05 AM I have discussed this case with Dr. Parry the radiologist because of concern of a possible lucency in the left mosque area. He felt sure by comparison that this was volume averaging and not another CVA. There is a prior lacunar in the right side that had been described. Relevant to today's visit. The patient in fact is already on a blood thinner. Laceration was approximated with Steri-Strips and did not have any deep transdermal involvement. Patient making including possible head injury of significance, possible contusion of rib or pneumothorax. Pneumothorax was ruled out immediately. I looked at the x-ray on the portable machine. The patient will be treated for rib contusion and laceration repaired by skin approximation with Steri-Strips. Patient's hemoglobin is stable. She also has a creatinine of 1.1 which is consistent with her prior values. Patient will be discharged in satisfactory condition. Last Recorded V/S: Last Vital Signs Temp 96.8 F L 02/18/20 09:30 Pulse 80 02/18/20 10:11 Resp 17 02/18/20 10:11 BP 123/87 02/18/20 10:11 Pulse Ox 98 02/18/20 10:11 - Orders/Labs/Meds Orders: Active Orders 24 hr Category Date Time Status Sodium Chloride 0.9% [Saline Flush] Med 02/18/20 09:33 Active 10 ml FLUSH ASDIRECTED PRN Sodium Chloride 0.9% [Saline Flush] Med 02/18/20 09:33 Active 2.5 ml FLUSH ASDIRECTED PRN Saline Lock Insert [OM.PC] Stat Oth 02/18/20 09:33 Ordered Medication Orders Sodium Chloride (Saline Flush) 10 ml FLUSH ASDIRECTED PRN PRN Reason: Keep Vein Open Last Admin: 02/18/20 09:37 Dose: 10 ml Documented by: LILLIAM Sodium Chloride (Saline Flush) 2.5 ml FLUSH ASDIRECTED PRN PRN Reason: Keep Vein Open Last Admin: 02/18/20 09:37 Dose: 2.5 ml Documented by: LILLIAM Labs: Laboratory Tests 02/18/20 02/18/20 02/18/20 Range/Units 10:12 10:12 10:12 WBC 8.24 (4.0-11.0) K/uL RBC 3.95 L (4.30-5.90) M/uL Hgb 10.8 L (12.0-16.0) g/dL Hct 33.2 L (36.0-46.0) % MCV 84.1 (80.0-98.0) fL MCH 27.3 (27.0-32.0) pg MCHC 32.5 (31.0-37.0) g/dL RDW Std Deviation 49.1 (28.0-62.0) fl RDW Coeff of Jamil 16 H (11.0-15.0) % Plt Count 272 (150-400) K/uL MPV 9.00 (7.40-12.00) fL Neut % (Auto) 68.0 (48.0-80.0) % Lymph % (Auto) 19.1 (16.0-40.0) % Hamilton % (Auto) 10.7 (0.0-15.0) % Eos % (Auto) 2.1 (0.0-7.0) % Baso % (Auto) 0.1 (0.0-1.5) % Neut # (Auto) 5.6 (1.4-5.7) K/uL Lymph # (Auto) 1.6 (0.6-2.4) K/uL Hamilton # (Auto) 0.9 H (0.0-0.8) K/uL Eos # (Auto) 0.2 (0.0-0.7) K/uL Baso # (Auto) 0.0 (0.0-0.1) K/uL Nucleated RBC % 0.0 /100WBC Nucleated RBCs # 0 K/uL INR 1.14 Sodium 135 L (136-145) mmol/L Potassium 4.3 (3.5-5.1) mmol/L Chloride 101 (98-107) mmol/L Carbon Dioxide 23.0 (21.0-32.0) mmol/L BUN 18 (7.0-18.0) mg/dL Creatinine 1.1 H (0.6-1.0) mg/dL Est Cr Clr Drug Dosing 44.98 mL/min Estimated GFR (MDRD) 50.2 ml/min Glucose 84 (74-106) mg/dL Calcium 9.8 (8.5-10.1) mg/dL Total Bilirubin 0.4 (0.2-1.0) mg/dL AST 17 (15-37) IU/L ALT 16 (14-63) IU/L Alkaline Phosphatase 102 (46-116) U/L Total Protein 7.7 (6.4-8.2) g/dL Albumin 3.7 (3.4-5.0) g/dL Globulin 4.0 (2.6-4.0) g/dL Albumin/Globulin Ratio 0.9 (0.9-1.6) Urine Color Urine Appearance Urine pH (5.0-8.0) Ur Specific [place] (1.001-1.035) Urine Protein (NEGATIVE) mg/dL Urine Glucose (UA) (NEGATIVE) mg/dL Urine Ketones (NEGATIVE) mg/dL Urine Occult Blood (NEGATIVE) Urine Nitrite (NEGATIVE) Urine Bilirubin (NEGATIVE) Urine Urobilinogen (<2.0) EU/dL Ur Leukocyte Esterase (NEGATIVE) Urine RBC (0-2/HPF) Urine WBC (0-5/HPF) Ur Epithelial Cells (NONE-FEW) Urine Bacteria (NEGATIVE) Urine Yeast Ethyl Alcohol < 3.0 mg/dL 02/18/20 Range/Units 10:39 WBC (4.0-11.0) K/uL RBC (4.30-5.90) M/uL Hgb (12.0-16.0) g/dL Hct (36.0-46.0) % MCV (80.0-98.0) fL MCH (27.0-32.0) pg MCHC (31.0-37.0) g/dL RDW Std Deviation (28.0-62.0) fl RDW Coeff of Jamil (11.0-15.0) % Plt Count (150-400) K/uL MPV (7.40-12.00) fL Neut % (Auto) (48.0-80.0) % Lymph % (Auto) (16.0-40.0) % Hamilton % (Auto) (0.0-15.0) % Eos % (Auto) (0.0-7.0) % Baso % (Auto) (0.0-1.5) % Neut # (Auto) (1.4-5.7) K/uL Lymph # (Auto) (0.6-2.4) K/uL Hamilton # (Auto) (0.0-0.8) K/uL Eos # (Auto) (0.0-0.7) K/uL Baso # (Auto) (0.0-0.1) K/uL Nucleated RBC % /100WBC Nucleated RBCs # K/uL INR Sodium (136-145) mmol/L Potassium (3.5-5.1) mmol/L Chloride (98-107) mmol/L Carbon Dioxide (21.0-32.0) mmol/L BUN (7.0-18.0) mg/dL Creatinine (0.6-1.0) mg/dL Est Cr Clr Drug Dosing mL/min Estimated GFR (MDRD) ml/min Glucose (74-106) mg/dL Calcium (8.5-10.1) mg/dL Total Bilirubin (0.2-1.0) mg/dL AST (15-37) IU/L ALT (14-63) IU/L Alkaline Phosphatase (46-116) U/L Total Protein (6.4-8.2) g/dL Albumin (3.4-5.0) g/dL Globulin (2.6-4.0) g/dL Albumin/Globulin Ratio (0.9-1.6) Urine Color YELLOW Urine Appearance CLEAR Urine pH 6.0 (5.0-8.0) Ur Specific [place] 1.015 (1.001-1.035) Urine Protein NEGATIVE (NEGATIVE) mg/dL Urine Glucose (UA) NEGATIVE (NEGATIVE) mg/dL Urine Ketones NEGATIVE (NEGATIVE) mg/dL Urine Occult Blood MODERATE H (NEGATIVE) Urine Nitrite NEGATIVE (NEGATIVE) Urine Bilirubin NEGATIVE (NEGATIVE) Urine Urobilinogen 0.2 (<2.0) EU/dL Ur Leukocyte Esterase NEGATIVE (NEGATIVE) Urine RBC 5-10 (0-2/HPF) Urine WBC 0-2 (0-5/HPF) Ur Epithelial Cells FEW (NONE-FEW) Urine Bacteria RARE (NEGATIVE) Urine Yeast FEW Ethyl Alcohol mg/dL Meds: Medications Generic Name Dose Route Start Last Admin Trade Name Freq PRN Reason Stop Dose Admin Sodium Chloride 10 ml 02/18/20 09:33 02/18/20 09:37 Saline Flush FLUSH 10 ml ASDIRECTED PRN Administration Keep Vein Open Sodium Chloride 2.5 ml 02/18/20 09:33 02/18/20 09:37 Saline Flush FLUSH 2.5 ml ASDIRECTED PRN Administration Keep Vein Open Discontinued Medications Generic Name Dose Route Start Last Admin Trade Name Freq PRN Reason Stop Dose Admin Hydrocodone Bitart/Acetaminophen 2 tab 02/18/20 09:36 02/18/20 09:40 Lucas 325-5 Mg PO 02/18/20 09:37 2 tab ONETIME ONE Administration Departure - Departure Time of Disposition: 11:12 Disposition: Home, Self-Care 01 Clinical Impression: Contusion of chest wall, Laceration of left forearm - Discharge Information Prescriptions: Hydrocodone/Acetaminophen [Lucas 7.5-325 Tablet] 1 each PO Q4HR PRN #14 tablet PRN Reason: Pain Instructions: Laceration Care, Adult, Rib Contusion Referrals: Vu Stern MD [Primary Care Provider] - Forms: ED Department Discharge Additional Instructions: [facility] - Primary Care [address] [place] [id number] [place] [address] The following information is given to patients seen in the emergency department who are being discharged to home. This information is to outline your options for follow-up care. We provide all patients seen in our emergency department with a follow-up referral. The need for follow-up, as well as the timing and circumstances, are variable depending upon the specifics of your emergency department visit. If you don't have a primary care physician on staff, we will provide you with a referral. We always advise you to contact your personal physician following an emergency department visit to inform them of the circumstance of the visit and for follow-up with them and/or the need for any referrals to a consulting specialist. The emergency department will also refer you to a specialist when appropriate. This referral assures that you have the opportunity for follow-up care with a specialist. All of these measure are taken in an effort to provide you with optimal care, which includes your follow-up. Under all circumstances we always encourage you to contact your private physician who remains a resource for coordinating your care. When calling for follow-up care, please make the office aware that this follow-up is from your recent emergency room visit. If for any reason you are refused follow-up, please contact the [facility] Emergency Department at and asked to speak to the emergency department charge nurse. Sepsis Event Note (ED) - Focused Exam Vital Signs: Vital Signs Temp Pulse Resp BP Pulse Ox 02/18/20 10:11 80 17 123/87 98 02/18/20 09:56 80 19 141/92 H 96 02/18/20 09:41 88 21 H 138/87 93 L 02/18/20 09:30 96.8 F L 90 18 137/88 93 L - My Orders Last 24 Hours: My Active Orders 02/18/20 09:33 Sodium Chloride 0.9% [Saline Flush] 10 ml FLUSH ASDIRECTED PRN Sodium Chloride 0.9% [Saline Flush] 2.5 ml FLUSH ASDIRECTED PRN Saline Lock Insert [OM.PC] Stat - Assessment/Plan Last 24 Hours: My Active Orders 02/18/20 09:33 Sodium Chloride 0.9% [Saline Flush] 10 ml FLUSH ASDIRECTED PRN Sodium Chloride 0.9% [Saline Flush] 2.5 ml FLUSH ASDIRECTED PRN Saline Lock Insert [OM.PC] Stat
--- NOTE | 2020-02-18 10:17 | CT ---
Head CT Technique: Multiple axial sections through the brain were obtained. Intravenous contrast was not utilized. Comparison: Prior head CT study of 11/16/19 is available. Findings: Ventricles along with basal cisterns and sulci over the convexities are mildly prominent. No abnormal parenchymal densities are seen. No evidence of intracranial hemorrhage. No midline shift or mass-effect is seen. Visualized left maxillary sinus shows a retention cyst measuring approximately 1.3 cm. No acute paranasal sinus findings are seen. Mastoid sinuses show nothing acute. No acute calvarial finding is seen. Impression: 1. Sinus findings believed to be chronic. 2. No acute intracranial abnormality is appreciated. Diagnostic code #2 This report was dictated in MDT
--- NOTE | 2020-02-18 10:18 | CR ---
Chest: Portable view of the chest was obtained. Comparison: Prior chest x-ray of 02/17/20. Stable parenchymal density seen within the right midlung. Lucency is noted within the right upper lung which is felt to be due to old ligament changes and is stable from prior exam. No acute parenchymal changes seen. Heart does not appear enlarged. No discrete bony abnormality is appreciated. Impression: 1. Stable findings as noted above. 2. Nothing acute is definitely appreciated. Diagnostic code #2 This report was dictated in MDT
[2020-02-18 10:41] LABS: BLOOD UREA NITROGEN,BUN 18 mg/dL (7.0-18.0); CHLORIDE,CL 101 mmol/L (98-107); GLUCOSE RANDOM 84 mg/dL (74-106); POTASSIUM,K 4.3 mmol/L (3.5-5.1); SODIUM,NA 135 mmol/L (136-145)
[2020-02-18 11:30] VITALS: BP 141/84; PULSE 91
== END 2020-02-18 11:30 | disposition home or self-care (01) ==
LOC: MW.ED 09:17
DX: S51.812A Laceration without foreign body of left forearm, initial encounter (principal); S20.212A Contusion of left front wall of thorax, initial encounter; I10 Essential (primary) hypertension; J44.9 Chronic obstructive pulmonary disease, unspecified; F41.9 Anxiety disorder, unspecified; F32.9 Major depressive disorder, single episode, unspecified; Z79.899 Other long term (current) drug therapy; Z90.49 Acquired absence of other specified parts of digestive tract; W01.198A Fall on same level from slipping, tripping and stumbling with subsequent striking against other object, initial encounter
CPT/HCPCS: 36415; 70450; 71045; 80053; 80307; 81001; 85025; 85610; 99284; A9270; 99283

== ENCOUNTER 2020-02-29 19:07 | Observation (INO) | payer MEDICARE, MEDICAID, OTHER ==
[2020-02-29] MEDS ORDERED: Sodium Chloride 0.9% 10 ML Syringe FLUSH PRN (20:49)
[2020-02-29] MEDS ORDERED: Dexamethasone 10 MG/ML SDV IVPUSH ONE (20:49)
[2020-02-29] MEDS ORDERED: Albuterol/Ipratropium 3.0-0.5 MG/3 ML Neb Soln NEB ONE (20:49)
[2020-02-29] MEDS ORDERED: Sodium Chloride 0.9% 2.5 ML Syringe FLUSH PRN (20:49)
--- NOTE | 2020-02-29 20:55 | EDM.PDOC ---
ED HPI GENERAL MEDICAL PROBLEM - General Chief Complaint: Respiratory Problem Stated Complaint: COPD/CROUP Time Seen by Provider: 02/29/20 20:43 Source of Information: Reports: Patient History Limitations: Reports: No Limitations - History of Present Illness INITIAL COMMENTS - FREE TEXT/NARRATIVE: History of present illness: [Patient is 64-year-old female with a history of COPD who presents with suspected COPD exacerbation. She states that she was diagnosed COVID a couple months ago, was admitted to the ICU, intubated, in a coma for 10 days, eventually discharged to rehab on antibiotics because she had post viral pneumonia, eventually she was able to get through all of that and has been home from rehab now for a couple of weeks. She is on 2 L of oxygen at home chronic all. She states that she has follow-up with her PCP tomorrow but all day today she has had a nonproductive cough, a mild headache, and a sore throat she suspects is from all the coughing. She denies chest pain. She denies fever or chills. Denies vomiting diarrhea.] Review of systems: As per history of present illness and below otherwise all systems reviewed and negative. Past medical history: As per history of present illness and as reviewed below otherwise noncontributory. Surgical history: As per history of present illness and as reviewed below otherwise noncontributory. Social history: No reported history of drug or alcohol abuse. Family history: As per history of present illness and as reviewed below otherwise noncontributory. Physical exam: General: Awake, alert, no acute distress, A&O X3. HEENT: Atraumatic, normocephalic, pupils reactive, negative for conjunctival pallor or scleral icterus, mucous membranes moist, throat clear, neck supple, nontender, trachea midline. Lungs: scattered wheezes throughout lung lerma, breath sounds equal bilaterally, chest nontender. supplemental O2 in place via NC. Heart: RRR, normal S1S2, no JVD. Abdomen: Soft, nondistended, nontender. Negative for masses or hepatosplenomegaly. Negative for costovertebral tenderness. Pelvis: Stable nontender. Genitourinary: Deferred. Rectal: Deferred. Extremities: Atraumatic, no edema, Neurovascular unremarkable. Neuro: Motor and sensory grossly intact throughout. Exam nonfocal. Diagnostics: [] Therapeutics: [] Impression: [] Plan: [] Definitive disposition and diagnosis as appropriate pending reevaluation and review of above. - Related Data Allergies Allergy/AdvReac Type Severity Reaction Status Date / Time No Known Allergies Allergy Verified 03/01/20 01:13 Home Meds: Home Meds Venlafaxine HCl [Venlafaxine ER] 75 mg PO BID 09/22/18 [History] cloNIDine [Catapres] 0.1 mg PO BID 09/22/18 [History] Umeclidinium [place] [Incruse Ellipta*] 1 puff IH DAILY 05/19/19 [History] Albuterol [Ventolin HFA] 2 puff INH BID PRN 08/06/19 [History] Escitalopram [Lexapro] 20 mg PO DAILY 08/06/19 [History] Oxybutynin 5 mg PO TID 08/06/19 [History] lisinopriL [Zestril] 10 mg PO DAILY 08/06/19 [History] Simvastatin [Zocor] 10 mg PO BEDTIME 09/01/19 [History] Acetaminophen [Tylenol] 650 mg PO Q6H PRN #20 tablet 11/16/19 [Rx] Omeprazole 20 mg PO ACBREAKFAST #30 cap.sr 11/16/19 [Rx] Sucralfate [Carafate] 1 gm PO QIDACANDBED #120 tablet 11/16/19 [Rx] Hydrocodone/Acetaminophen [[place] 7.5-325 Tablet] 1 each PO Q4HR PRN #14 tablet 02/18/20 [Rx] Albuterol Sulfate [Albuterol Sulfate Hfa] 8.5 gm IH ASDIRECTED PRN 03/01/20 [History] Budesonide/Formoterol [Symbicort 160-4.5 MCG] 1 puff INH BID PRN 03/01/20 [History] Fluticasone Propionate [Flovent Diskus] 50 mcg IH BID 03/01/20 [History] LORazepam [Lorazepam] 0.5 mg PO BID PRN 03/01/20 [History] Ondansetron [Zofran] 4 mg PO Q6H PRN 03/01/20 [History] Verapamil [Calan] 40 mg PO TID 03/01/20 [History] Past Medical History - Past Health History Medical/Surgical History: Denies Medical/Surgical History HEENT History: Reports: None Other HEENT History: wears glasses Cardiovascular History: Reports: Hypertension Respiratory History: Reports: COPD, Other (See Below) Other Respiratory History: Home O2 @ 2LPM Gastrointestinal History: Reports: Diverticulosis Genitourinary History: Reports: Other (See Below) Other Genitourinary History: kidney stones [employer] History: Reports: Musculoskeletal History: Reports: None Neurological History: Reports: None Psychiatric History: Reports: Addiction, Anxiety, Depression Endocrine/Metabolic History: Reports: None Insulin Pump Model and Fairing Man: None Hematologic History: Reports: None Immunologic History: Reports: None Oncologic (Cancer) History: Reports: None Dermatologic History: Reports: None - Infectious Disease History Infectious Disease History: Reports: Hepatitis C Other Infectious Disease History: unsure of which kind of hepatitis - Past Surgical History Head Surgeries/Procedures: Reports: None HEENT Surgical History: Reports: None Cardiovascular Surgical History: Reports: None Respiratory Surgical History: Reports: None GI Surgical History: Reports: Appendectomy Female Surgical History: Reports: None Endocrine Surgical History: Reports: None Neurological Surgical History: Reports: None Musculoskeletal Surgical History: Reports: Other (See Below) Other Musculoskeletal Surgeries/Procedures:: rt shoulder surg Oncologic Surgical History: Reports: None Dermatological Surgical History: Reports: None Social & Family History - Family History Family Medical History: Noncontributory Respiratory: Reports: Asthma, COPD : Reports: Renal Disease/Insufficiency Psychiatric: Reports: Anxiety, Depression Endocrine/Metabolic: Reports: Diabetes, type II Oncologic: Reports: Hodgkin's Lymphoma - Caffeine Use Caffeine Use: Reports: None Caffeine Use Comment: 5 cups avg per day - Living Situation & Occupation Living situation: Reports: Single ED ROS GENERAL - Review of Systems Review Of Systems: Comprehensive ROS is negative, except as noted in HPI. ED EXAM, GENERAL - Physical Exam Exam: See Below (see h and p) EKG INTERPRETATION EKG Date: 02/29/20 Time: 22:20 Rhythm: NSR Rate (Beats/Min): 89 [place]: Normal P-Wave: Present QRS: Normal ST-T: Normal QT: Normal Course - Vital Signs Text/Narrative:: Patient to be admitted for COPD exacerbation. She does report some improvement after being treated here in the ED, but I believe she would benefit from further work-up and intermittent breathing treatments here in the hospital. Patient is agreeable with plan, otherwise stable at the time of admission. Last Recorded V/S: Last Vital Signs Temp 36.6 C 03/01/20 01:09 Pulse 70 03/01/20 01:09 Resp 20 03/01/20 01:09 BP 145/90 H 03/01/20 01:09 Pulse Ox 95 03/01/20 01:09 - Orders/Labs/Meds Orders: Active Orders 24 hr Category Date Time Status EKG Documentation Completion [RC] STAT Care 02/29/20 20:50 Active RT Aerosol Therapy [RC] ASDIRECTED Care 02/29/20 22:21 Active Albuterol/Ipratropium [DuoNeb 3.0-0.5 MG/3 ML] Med 02/29/20 22:21 Active 3 ml NEB Q2H PRN Sodium Chloride 0.9% [Normal Saline] 500 ml Med 02/29/20 21:00 Active IV .BOLUS Sodium Chloride 0.9% [Saline Flush] Med 02/29/20 20:49 Active 10 ml FLUSH ASDIRECTED PRN Sodium Chloride 0.9% [Saline Flush] Med 02/29/20 20:49 Active 2.5 ml FLUSH ASDIRECTED PRN Saline Lock Insert [OM.PC] Stat Oth 02/29/20 20:49 Ordered Medication Orders Acetaminophen (Tylenol) 650 mg PO Q4H PRN PRN Reason: Pain (Mild 1-3)/fever Albuterol/Ipratropium (Duoneb 3.0-0.5 Mg/3 Ml) 3 ml NEB Q2H PRN PRN Reason: Wheezing Albuterol/Ipratropium (Duoneb 3.0-0.5 Mg/3 Ml) 3 ml NEB Q4HRRT PRN PRN Reason: Shortness of Breath Sodium Chloride (Normal Saline) 500 mls @ 999 mls/hr IV .BOLUS YASIR Last Admin: 02/29/20 21:30 Dose: 999 mls/hr Documented by: KRISTEN Methylprednisolone Sodium Succinate (Solu-Medrol) 40 mg IVPUSH Q12H YASIR Ondansetron HCl (Zofran) 4 mg IVPUSH Q4H PRN PRN Reason: Nausea/Vomiting Sodium Chloride (Saline Flush) 10 ml FLUSH ASDIRECTED PRN PRN Reason: Keep Vein Open Last Admin: 02/29/20 21:28 Dose: 10 ml Documented by: KRISTEN Sodium Chloride (Saline Flush) 2.5 ml FLUSH ASDIRECTED PRN PRN Reason: Keep Vein Open Last Admin: 02/29/20 21:28 Dose: 2.5 ml Documented by: KRISTEN Labs: Laboratory Tests 02/29/20 02/29/20 Range/Units 21:20 21:20 WBC 10.13 (4.0-11.0) K/uL RBC 4.32 (4.30-5.90) M/uL Hgb 11.6 L (12.0-16.0) g/dL Hct 35.8 L (36.0-46.0) % MCV 82.9 (80.0-98.0) fL MCH 26.9 L (27.0-32.0) pg MCHC 32.4 (31.0-37.0) g/dL RDW Std Deviation 46.4 (28.0-62.0) fl RDW Coeff of Jamil 15 (11.0-15.0) % Plt Count 308 (150-400) K/uL MPV 9.30 (7.40-12.00) fL Neut % (Auto) 68.3 (48.0-80.0) % Lymph % (Auto) 20.8 (16.0-40.0) % Iron % (Auto) 9.2 (0.0-15.0) % Eos % (Auto) 1.5 (0.0-7.0) % Baso % (Auto) 0.2 (0.0-1.5) % Neut # (Auto) 6.9 H (1.4-5.7) K/uL Lymph # (Auto) 2.1 (0.6-2.4) K/uL Iron # (Auto) 0.9 H (0.0-0.8) K/uL Eos # (Auto) 0.2 (0.0-0.7) K/uL Baso # (Auto) 0.0 (0.0-0.1) K/uL Nucleated RBC % 0.0 /100WBC Nucleated RBCs # 0 K/uL Sodium 142 (136-145) mmol/L Potassium 4.2 (3.5-5.1) mmol/L Chloride 105 (98-107) mmol/L Carbon Dioxide 25.7 (21.0-32.0) mmol/L BUN 13 (7.0-18.0) mg/dL Creatinine 1.0 (0.6-1.0) mg/dL Est Cr Clr Drug Dosing TNP Estimated GFR (MDRD) 56.0 ml/min Glucose 84 (74-106) mg/dL Calcium 9.0 (8.5-10.1) mg/dL Total Bilirubin 0.2 (0.2-1.0) mg/dL AST 16 (15-37) IU/L ALT 19 (14-63) IU/L Alkaline Phosphatase 98 (46-116) U/L Troponin I < 0.050 (0.000-0.056) ng/mL Total Protein 7.8 (6.4-8.2) g/dL Albumin 3.6 (3.4-5.0) g/dL Globulin 4.2 H (2.6-4.0) g/dL Albumin/Globulin Ratio 0.9 (0.9-1.6) Meds: Medications Generic Name Dose Route Start Last Admin Trade Name Freq PRN Reason Stop Dose Admin Acetaminophen 650 mg 02/29/20 23:47 Tylenol PO Q4H PRN Pain (Mild 1-3)/fever Albuterol/Ipratropium 3 ml 02/29/20 22:21 Duoneb 3.0-0.5 Mg/3 Ml NEB Q2H PRN Wheezing Albuterol/Ipratropium 3 ml 02/29/20 23:48 Duoneb 3.0-0.5 Mg/3 Ml NEB Q4HRRT PRN Shortness of Breath Sodium Chloride 500 mls @ 999 mls/hr 02/29/20 21:00 02/29/20 21:30 Normal Saline IV 999 mls/hr .BOLUS YASIR Administration Methylprednisolone Sodium Succinate 40 mg 03/01/20 09:00 Solu-Medrol IVPUSH Q12H YASIR Ondansetron HCl 4 mg 02/29/20 23:47 Zofran IVPUSH Q4H PRN Nausea/Vomiting Sodium Chloride 10 ml 02/29/20 20:49 02/29/20 21:28 Saline Flush FLUSH 10 ml ASDIRECTED PRN Administration Keep Vein Open Sodium Chloride 2.5 ml 02/29/20 20:49 02/29/20 21:28 Saline Flush FLUSH 2.5 ml ASDIRECTED PRN Administration Keep Vein Open Discontinued Medications Generic Name Dose Route Start Last Admin Trade Name Nancy PRN Reason Stop Dose Admin Albuterol/Ipratropium 3 ml 02/29/20 20:49 02/29/20 21:11 Duoneb 3.0-0.5 Mg/3 Ml NEB 02/29/20 20:50 3 ml ONETIME ONE Administration Dexamethasone 10 mg 02/29/20 20:49 02/29/20 21:28 Dexamethasone IVPUSH 02/29/20 20:50 10 mg ONETIME ONE Administration Ketorolac Tromethamine 15 mg 02/29/20 21:40 02/29/20 21:51 Toradol IVPUSH 02/29/20 21:41 15 mg ONETIME ONE Administration Departure - Departure Time of Disposition: 23:30 Disposition: Refer to Observation Condition: Fair Clinical Impression: COPD exacerbation - Discharge Information Sepsis Event Note (ED) - Evaluation Sepsis Screening Result: No Definite Risk - Focused Exam Vital Signs: Vital Signs Temp Pulse Resp BP Pulse Ox 02/29/20 22:15 78 19 142/98 H 97 02/29/20 21:45 83 18 140/102 H 96 02/29/20 21:15 88 19 149/108 H 97 02/29/20 20:45 92 20 157/108 H 97 02/29/20 19:59 36.7 C 110 H 20 130/91 H 2 L - My Orders Last 24 Hours: My Active Orders 02/29/20 20:49 Sodium Chloride 0.9% [Saline Flush] 10 ml FLUSH ASDIRECTED PRN Sodium Chloride 0.9% [Saline Flush] 2.5 ml FLUSH ASDIRECTED PRN Saline Lock Insert [OM.PC] Stat 02/29/20 20:50 EKG Documentation Completion [RC] STAT 02/29/20 21:00 Sodium Chloride 0.9% [Normal Saline] 500 ml IV .BOLUS 02/29/20 22:21 RT Aerosol Therapy [RC] ASDIRECTED Albuterol/Ipratropium [DuoNeb 3.0-0.5 MG/3 ML] 3 ml NEB Q2H PRN - Assessment/Plan Last 24 Hours: My Active Orders 02/29/20 20:49 Sodium Chloride 0.9% [Saline Flush] 10 ml FLUSH ASDIRECTED PRN Sodium Chloride 0.9% [Saline Flush] 2.5 ml FLUSH ASDIRECTED PRN Saline Lock Insert [OM.PC] Stat 02/29/20 20:50 EKG Documentation Completion [RC] STAT 02/29/20 21:00 Sodium Chloride 0.9% [Normal Saline] 500 ml IV .BOLUS 02/29/20 22:21 RT Aerosol Therapy [RC] ASDIRECTED Albuterol/Ipratropium [DuoNeb 3.0-0.5 MG/3 ML] 3 ml NEB Q2H PRN
[2020-02-29] MEDS ORDERED: Sodium Chloride 0.9% 500 ML IV SCH (21:00)
--- NOTE | 2020-02-29 21:19 | CR ---
Chest: Portable view of the chest was obtained. Comparison: Prior chest x-ray of 02/18/20. Thick area of scarring noted within the right midlung. Lungs otherwise are clear with no acute parenchymal change. Heart size and mediastinum are normal. Bony structures are grossly intact. Impression: 1. Thick area of scarring with the right midlung. 2. Nothing acute is definitely appreciated on portable chest x-ray. Diagnostic code #3 This report was dictated in MDT
[2020-02-29] MEDS ORDERED: Ketorolac 15 MG/ML SDV IVPUSH ONE (21:40)
[2020-02-29 21:50] LABS: BLOOD UREA NITROGEN,BUN 13 mg/dL (7.0-18.0); CARBON DIOXIDE,CO2 25.7 mmol/L (21.0-32.0); CHLORIDE,CL 105 mmol/L (98-107); GLUCOSE RANDOM 84 mg/dL (74-106); POTASSIUM,K 4.2 mmol/L (3.5-5.1); SODIUM,NA 142 mmol/L (136-145)
[2020-02-29] MEDS ORDERED: Albuterol/Ipratropium 3.0-0.5 MG/3 ML Neb Soln NEB PRN (22:21)
[2020-02-29] MEDS ORDERED: Ondansetron 4 MG/2 ML SDV IVPUSH PRN (23:47)
[2020-02-29] MEDS ORDERED: Acetaminophen 325 MG Tab PO PRN (23:47)
[2020-03-01] MEDS: Albuterol/Ipratropium 3.0-0.5 MG/3 ML Neb Soln NEB PRN ×2 (02:56→18:29)
--- NOTE | 2020-03-01 06:53 | PCM.HP.2 ---
H&P History of Present Illness - General Date of Service: 03/01/20 Admit Problem/Dx: Admission Diagnosis/Problem Admission Diagnosis/Problem Wheezing - History of Present Illness Initial Comments - Free Text/Narative: Patient is 64-year-old female with a history of COPD who presents with suspected COPD exacerbation. She states that she was diagnosed COVID a couple months ago, was admitted to the ICU, intubated, in a coma for 10 days, eventually discharged to rehab on antibiotics because she had post viral pneumonia, eventually she was able to get through all of that and has been home from rehab now for a couple of weeks. She is on 2 L of oxygen at home chronically. She states that she has follow-up with her PCP tomorrow but all day today she has had a nonproductive cough, a mild headache, and a sore throat she suspects is from all the coughing. She denies chest pain. She denies fever or chills. Denies vomiting diarrhea. In the ER she received IV steroids and DuoNebs, her CXR was unremarkable, she was till feeling SOB hence was admitted for further management. Headache Pain Score (Numeric/FACES): 6 - Related Data Allergies/Adverse Reactions: Allergies Allergy/AdvReac Type Severity Reaction Status Date / Time No Known Allergies Allergy Verified 03/01/20 01:13 Home Medications: Home Meds Venlafaxine HCl [Venlafaxine ER] 75 mg PO BID 09/22/18 [History] cloNIDine [Catapres] 0.1 mg PO BID 09/22/18 [History] Umeclidinium [place] [Incruse Ellipta*] 1 puff IH DAILY 05/19/19 [History] Albuterol [Ventolin HFA] 2 puff INH BID PRN 08/06/19 [History] Escitalopram [Lexapro] 20 mg PO DAILY 08/06/19 [History] Oxybutynin 5 mg PO TID 08/06/19 [History] lisinopriL [Zestril] 10 mg PO DAILY 08/06/19 [History] Simvastatin [Zocor] 10 mg PO BEDTIME 09/01/19 [History] Acetaminophen [Tylenol] 650 mg PO Q6H PRN #20 tablet 11/16/19 [Rx] Omeprazole 20 mg PO ACBREAKFAST #30 cap.sr 11/16/19 [Rx] Sucralfate [Carafate] 1 gm PO QIDACANDBED #120 tablet 11/16/19 [Rx] Hydrocodone/Acetaminophen [[place] 7.5-325 Tablet] 1 each PO Q4HR PRN #14 tablet 02/18/20 [Rx] Albuterol Sulfate [Albuterol Sulfate Hfa] 8.5 gm IH ASDIRECTED PRN 03/01/20 [History] Budesonide/Formoterol [Symbicort 160-4.5 MCG] 1 puff INH BID PRN 03/01/20 [History] Fluticasone Propionate [Flovent Diskus] 50 mcg IH BID 03/01/20 [History] LORazepam [Lorazepam] 0.5 mg PO BID PRN 03/01/20 [History] Ondansetron [Zofran] 4 mg PO Q6H PRN 03/01/20 [History] Verapamil [Calan] 40 mg PO TID 03/01/20 [History] Past Medical History - Past Health History Medical/Surgical History: Denies Medical/Surgical History HEENT History: Reports: None Other HEENT History: wears glasses Cardiovascular History: Reports: Hypertension Respiratory History: Reports: COPD, Other (See Below) Other Respiratory History: Home O2 @ 2LPM Gastrointestinal History: Reports: Diverticulosis Genitourinary History: Reports: Other (See Below) Other Genitourinary History: kidney stones 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: Reports: Musculoskeletal History: Reports: None Neurological History: Reports: None Psychiatric History: Reports: Addiction, Anxiety, Depression Endocrine/Metabolic History: Reports: None Insulin Pump Model and Wire Worker: None Hematologic History: Reports: None Immunologic History: Reports: None Oncologic (Cancer) History: Reports: None Dermatologic History: Reports: None - Infectious Disease History Infectious Disease History: Reports: Hepatitis C Other Infectious Disease History: unsure of which kind of hepatitis - Past Surgical History Head Surgeries/Procedures: Reports: None HEENT Surgical History: Reports: None Cardiovascular Surgical History: Reports: None Respiratory Surgical History: Reports: None GI Surgical History: Reports: Appendectomy Female Surgical History: Reports: None Endocrine Surgical History: Reports: None Neurological Surgical History: Reports: None Musculoskeletal Surgical History: Reports: Other (See Below) Other Musculoskeletal Surgeries/Procedures:: rt shoulder surg Oncologic Surgical History: Reports: None Dermatological Surgical History: Reports: None Social & Family History - Family History Family Medical History: Noncontributory Respiratory: Reports: Asthma, COPD : Reports: Renal Disease/Insufficiency Psychiatric: Reports: Anxiety, Depression Endocrine/Metabolic: Reports: Diabetes, type II Oncologic: Reports: Hodgkin's Lymphoma - Tobacco Use Smoking Status *Q: Former Smoker Used Tobacco, but Quit: Yes Month/Year Tobacco Last Used: 3 - Caffeine Use Caffeine Use: Reports: None Caffeine Use Comment: 5 cups avg per day - Recreational Drug Use Recreational Drug Use: Yes Drug Use in Last 12 Months: No - Living Situation & Occupation Living situation: Reports: Single H&P Review of Systems - Review of Systems: Review Of Systems: See Below General: Reports: Malaise, Weakness, Fatigue. Denies: Fever, Chills Pulmonary: Reports: Shortness of Breath, Cough, Sputum. Denies: Wheezing, Pleuritic Chest Pain Cardiovascular: Reports: Dyspnea on Exertion. Denies: Chest Pain, Palpitations, Orthopnea, PND, Edema, Lightheadedness Gastrointestinal: Denies: Abdominal Pain, Anorexia, Black Stool, Bloody Stool, Constipation Genitourinary: Denies: Dysuria, Frequency, Burning, Pain, Urgency Musculoskeletal: Denies: Neck Pain, Shoulder Pain, Arm Pain, Back Pain Skin: Denies: Cyanosis, Jaundice, Mottled, Pallor Psychiatric: Denies: Confusion, Depression, Mood Lability Exam - Exam Exam: See Below - Vital Signs Vital Signs: Last Vital Signs Temp 36.6 C 03/01/20 05:00 Pulse 74 03/01/20 05:00 Resp 20 03/01/20 05:00 BP 142/91 H 03/01/20 05:00 Pulse Ox 96 03/01/20 05:00 Weight: 59.012 kg - Exam General: Alert, Oriented Neck: Supple, Trachea Midline Lungs: Normal Respiratory Effort, Decreased Breath Sounds Cardiovascular: Regular Rate, Regular Rhythm, Normal S1, Normal S2 - Patient Data Lab Results Last 24 hrs: Laboratory Results - last 24 hr 02/29/20 02/29/20 02/29/20 Range/Units 21:20 21:20 23:10 WBC 10.13 (4.0-11.0) K/uL RBC 4.32 (4.30-5.90) M/uL Hgb 11.6 L (12.0-16.0) g/dL Hct 35.8 L (36.0-46.0) % MCV 82.9 (80.0-98.0) fL MCH 26.9 L (27.0-32.0) pg MCHC 32.4 (31.0-37.0) g/dL RDW Std Deviation 46.4 (28.0-62.0) fl RDW Coeff of Jamil 15 (11.0-15.0) % Plt Count 308 (150-400) K/uL MPV 9.30 (7.40-12.00) fL Neut % (Auto) 68.3 (48.0-80.0) % Lymph % (Auto) 20.8 (16.0-40.0) % Kimble % (Auto) 9.2 (0.0-15.0) % Eos % (Auto) 1.5 (0.0-7.0) % Baso % (Auto) 0.2 (0.0-1.5) % Neut # (Auto) 6.9 H (1.4-5.7) K/uL Lymph # (Auto) 2.1 (0.6-2.4) K/uL Kimble # (Auto) 0.9 H (0.0-0.8) K/uL Eos # (Auto) 0.2 (0.0-0.7) K/uL Baso # (Auto) 0.0 (0.0-0.1) K/uL Nucleated RBC % 0.0 /100WBC Nucleated RBCs # 0 K/uL Sodium 142 (136-145) mmol/L Potassium 4.2 (3.5-5.1) mmol/L Chloride 105 (98-107) mmol/L Carbon Dioxide 25.7 (21.0-32.0) mmol/L BUN 13 (7.0-18.0) mg/dL Creatinine 1.0 (0.6-1.0) mg/dL Est Cr Clr Drug Dosing TNP Estimated GFR (MDRD) 56.0 ml/min Glucose 84 (74-106) mg/dL Calcium 9.0 (8.5-10.1) mg/dL Total Bilirubin 0.2 (0.2-1.0) mg/dL AST 16 (15-37) IU/L ALT 19 (14-63) IU/L Alkaline Phosphatase 98 (46-116) U/L Troponin I < 0.050 (0.000-0.056) ng/mL Total Protein 7.8 (6.4-8.2) g/dL Albumin 3.6 (3.4-5.0) g/dL Globulin 4.2 H (2.6-4.0) g/dL Albumin/Globulin Ratio 0.9 (0.9-1.6) Urine Color Urine Appearance Urine pH (5.0-8.0) Ur Specific [place] (1.001-1.035) Urine Protein (NEGATIVE) mg/dL Urine Glucose (UA) (NEGATIVE) mg/dL Urine Ketones (NEGATIVE) mg/dL Urine Occult Blood (NEGATIVE) Urine Nitrite (NEGATIVE) Urine Bilirubin (NEGATIVE) Urine Urobilinogen (<2.0) EU/dL Ur Leukocyte Esterase (NEGATIVE) SARS-CoV-2 RNA (ONOFRE) NEGATIVE (NEGATIVE) 03/01/20 Range/Units 04:30 WBC (4.0-11.0) K/uL RBC (4.30-5.90) M/uL Hgb (12.0-16.0) g/dL Hct (36.0-46.0) % MCV (80.0-98.0) fL MCH (27.0-32.0) pg MCHC (31.0-37.0) g/dL RDW Std Deviation (28.0-62.0) fl RDW Coeff of Jamil (11.0-15.0) % Plt Count (150-400) K/uL MPV (7.40-12.00) fL Neut % (Auto) (48.0-80.0) % Lymph % (Auto) (16.0-40.0) % Kimble % (Auto) (0.0-15.0) % Eos % (Auto) (0.0-7.0) % Baso % (Auto) (0.0-1.5) % Neut # (Auto) (1.4-5.7) K/uL Lymph # (Auto) (0.6-2.4) K/uL Kimble # (Auto) (0.0-0.8) K/uL Eos # (Auto) (0.0-0.7) K/uL Baso # (Auto) (0.0-0.1) K/uL Nucleated RBC % /100WBC Nucleated RBCs # K/uL Sodium (136-145) mmol/L Potassium (3.5-5.1) mmol/L Chloride (98-107) mmol/L Carbon Dioxide (21.0-32.0) mmol/L BUN (7.0-18.0) mg/dL Creatinine (0.6-1.0) mg/dL Est Cr Clr Drug Dosing Estimated GFR (MDRD) ml/min Glucose (74-106) mg/dL Calcium (8.5-10.1) mg/dL Total Bilirubin (0.2-1.0) mg/dL AST (15-37) IU/L ALT (14-63) IU/L Alkaline Phosphatase (46-116) U/L Troponin I (0.000-0.056) ng/mL Total Protein (6.4-8.2) g/dL Albumin (3.4-5.0) g/dL Globulin (2.6-4.0) g/dL Albumin/Globulin Ratio (0.9-1.6) Urine Color YELLOW Urine Appearance CLEAR Urine pH 6.0 (5.0-8.0) Ur Specific [place] 1.020 (1.001-1.035) Urine Protein NEGATIVE (NEGATIVE) mg/dL Urine Glucose (UA) NEGATIVE (NEGATIVE) mg/dL Urine Ketones NEGATIVE (NEGATIVE) mg/dL Urine Occult Blood NEGATIVE (NEGATIVE) Urine Nitrite NEGATIVE (NEGATIVE) Urine Bilirubin NEGATIVE (NEGATIVE) Urine Urobilinogen 0.2 (<2.0) EU/dL Ur Leukocyte Esterase NEGATIVE (NEGATIVE) SARS-CoV-2 RNA (ONOFRE) (NEGATIVE) Result Diagrams: 02/29/20 21:20 02/29/20 21:20 Sepsis Event Note - Evaluation Sepsis Screening Result: No Definite Risk - Focused Exam Vital Signs: Vital Signs Temp Pulse Resp BP Pulse Ox Pulse Ox 03/01/20 05:00 36.6 C 74 20 142/91 H 96 96 03/01/20 01:09 36.6 C 70 20 145/90 H 95 02/29/20 23:15 74 18 149/94 H 96 02/29/20 22:45 75 18 141/91 H 95 02/29/20 22:15 78 19 142/98 H 97 02/29/20 21:45 83 18 140/102 H 96 02/29/20 21:15 88 19 149/108 H 97 02/29/20 20:45 92 20 157/108 H 97 02/29/20 19:59 36.7 C 110 H 20 130/91 H 2 L - Problem List (1) COPD exacerbation SNOMED Code(s): 880641206 ICD Code: J44.1 - CHRONIC OBSTRUCTIVE PULMONARY DISEASE W (ACUTE) EXACERBATION Status: Acute Current Visit: Yes (2) Anxiety SNOMED Code(s): 57771335 ICD Code: F41.9 - ANXIETY DISORDER, UNSPECIFIED Status: Chronic Current Visit: No (3) History of tobacco abuse SNOMED Code(s): 275747189, 898135886 ICD Code: Z87.891 - PERSONAL HISTORY OF NICOTINE DEPENDENCE Status: Chronic Current Visit: No (4) Oxygen dependent SNOMED Code(s): 308390265103 ICD Code: Z99.81 - DEPENDENCE ON SUPPLEMENTAL OXYGEN Status: Chronic Current Visit: No Problem List Initiated/Reviewed/Updated: Yes Orders Last 24hrs: Active Orders 24 hr Category Date Time Status Patient Status [ADT] Routine ADT 02/29/20 22:25 Active Ambulate [RC] ASDIRECTED Care 02/29/20 23:47 Active Antiembolic Devices [RC] PER UNIT ROUTINE Care 02/29/20 23:47 Active EKG Documentation Completion [RC] STAT Care 02/29/20 20:50 Active Oxygen Therapy [RC] PRN Care 02/29/20 23:47 Active Pulse Oximetry [RC] PRN Care 02/29/20 23:47 Active RT Aerosol Therapy [RC] ASDIRECTED Care 02/29/20 22:21 Active RT Aerosol Therapy [RC] ASDIRECTED Care 02/29/20 23:48 Active Telemetry Monitoring [Cardiac Monitoring] [RC] Q8H Care 03/01/20 01:13 Active VTE/DVT Education [RC] PER UNIT ROUTINE Care 02/29/20 23:47 Active Vital Signs [RC] Q4H Care 02/29/20 23:47 Active Regular Diet [DIET] Diet 03/01/20 Breakfast Active Acetaminophen [TylenoL] Med 02/29/20 23:47 Active 650 mg PO Q4H PRN Albuterol/Ipratropium [DuoNeb 3.0-0.5 MG/3 ML] Med 02/29/20 23:48 Active 3 ml NEB Q4HRRT PRN Ondansetron [Zofran] Med 02/29/20 23:47 Active 4 mg IVPUSH Q4H PRN Sodium Chloride 0.9% [Normal Saline] 500 ml Med 02/29/20 21:00 Active IV .BOLUS Sodium Chloride 0.9% [Saline Flush] Med 02/29/20 20:49 Active 10 ml FLUSH ASDIRECTED PRN Sodium Chloride 0.9% [Saline Flush] Med 02/29/20 20:49 Active 2.5 ml FLUSH ASDIRECTED PRN methylPREDNISolone Sod Succ [Solu-MEDROL] Med 03/01/20 09:00 Active 40 mg IVPUSH Q12H Saline Lock Insert [OM.PC] Stat Oth 02/29/20 20:49 Ordered Sequential Compression Device [OM.PC] Per Unit Routine Oth 02/29/20 23:47 Ordered Resuscitation Status Routine Resus Stat 02/29/20 23:47 Ordered Medication Orders Acetaminophen (Tylenol) 650 mg PO Q4H PRN PRN Reason: Pain (Mild 1-3)/fever Albuterol/Ipratropium (Duoneb 3.0-0.5 Mg/3 Ml) 3 ml NEB Q4HRRT PRN PRN Reason: Shortness of Breath Last Admin: 03/01/20 02:56 Dose: 3 ml Documented by: STARR Sodium Chloride (Normal Saline) 500 mls @ 999 mls/hr IV .BOLUS YASIR Last Admin: 02/29/20 21:30 Dose: 999 mls/hr Documented by: KRISTEN Methylprednisolone Sodium Succinate (Solu-Medrol) 40 mg IVPUSH Q12H YASIR Ondansetron HCl (Zofran) 4 mg IVPUSH Q4H PRN PRN Reason: Nausea/Vomiting Sodium Chloride (Saline Flush) 10 ml FLUSH ASDIRECTED PRN PRN Reason: Keep Vein Open Last Admin: 02/29/20 21:28 Dose: 10 ml Documented by: KRISTEN Sodium Chloride (Saline Flush) 2.5 ml FLUSH ASDIRECTED PRN PRN Reason: Keep Vein Open Last Admin: 02/29/20 21:28 Dose: 2.5 ml Documented by: ARANANG Assessment/Plan Comment:: 64 y/o F admitted for COPD exacerbation, possible bronchitis Start IV Solu-Medrol 40 mg twice a day Duo-nebs when necessary for shortness of breath no indication for antibiotics as of now oxygenation via nasal cannula Continue home meds monitor and replete electrolyte as needed SCD for DVT prophylaxis
[2020-03-01] MEDS: methylPREDNISolone Sodium Succinate 40 MG/1 ML SDV IVPUSH SCH ×2 (09:15→20:44)
[2020-03-01] MEDS ORDERED: Budesonide/Formoterol 160-4.5 MCG/Puff 6 GM Inhaler INH PRN (10:07)
[2020-03-01] MEDS ORDERED: Acetaminophen 325 MG Tab PO PRN (10:07)
[2020-03-01] MEDS: Lisinopril 10 MG Tab PO SCH (10:28)
[2020-03-01] MEDS: Venlafaxine 75 MG Cap.ER PO SCH ×2 (10:28→20:45)
[2020-03-01] MEDS: Escitalopram 10 MG Tab PO SCH (10:29)
[2020-03-01] MEDS: Sucralfate 1 GM Tab PO SCH ×3 (11:21→20:46)
[2020-03-01] MEDS: UMECLIDINIUM BROMIDE INH SCH (13:19)
[2020-03-01] MEDS: FLUTICASONE PROPIONATE 50 MCG INH SCH ×2 (13:19→21:28)
[2020-03-01] MEDS: Acetaminophen/HYDROcodone 325-7.5 MG Tab PO PRN ×2 (14:07→20:45)
[2020-03-01] MEDS: Oxybutynin 5 MG Tab PO SCH ×2 (14:07→21:55)
[2020-03-01] MEDS: Simvastatin 10 MG Tab PO SCH (20:46)
[2020-03-01] MEDS: cloNIDine 0.1 MG Tab PO SCH (20:47)
[2020-03-01] MEDS: LORazepam 0.5 MG Tab PO PRN (23:55)
[2020-03-02] MEDS: Acetaminophen/HYDROcodone 325-7.5 MG Tab PO PRN ×3 (04:58→21:46)
[2020-03-02] MEDS: Oxybutynin 5 MG Tab PO SCH ×3 (05:00→21:32)
[2020-03-02] MEDS: Omeprazole 20 MG Cap.CR PO SCH (08:12)
[2020-03-02] MEDS: Lisinopril 10 MG Tab PO SCH (08:12)
[2020-03-02] MEDS: Escitalopram 10 MG Tab PO SCH (08:13)
[2020-03-02] MEDS: Sucralfate 1 GM Tab PO SCH ×4 (08:13→21:32)
[2020-03-02] MEDS: Venlafaxine 75 MG Cap.ER PO SCH ×2 (08:13→21:33)
[2020-03-02] MEDS: cloNIDine 0.1 MG Tab PO SCH ×2 (08:14→21:34)
[2020-03-02] MEDS: methylPREDNISolone Sodium Succinate 40 MG/1 ML SDV IVPUSH SCH ×2 (08:14→21:33)
[2020-03-02] MEDS ORDERED: Azithromycin 250 MG Tab PO ONE (09:39)
[2020-03-02] MEDS: Albuterol/Ipratropium 3.0-0.5 MG/3 ML Neb Soln NEB PRN ×3 (09:57→21:04)
[2020-03-02] MEDS: UMECLIDINIUM BROMIDE INH SCH (10:31)
[2020-03-02] MEDS: FLUTICASONE PROPIONATE 50 MCG INH SCH ×2 (10:32→21:05)
--- NOTE | 2020-03-02 11:29 | PCM.DCSUM1 ---
Discharge Summary - Discharge Data Discharge Disposition: Home, Self-Care 01 Condition: Fair - Referral to Home Health Primary Care Physician: Vu Stern MD - Discharge Diagnosis/Problem(s) (1) COPD exacerbation SNOMED Code(s): 665843383 ICD Code: J44.1 - CHRONIC OBSTRUCTIVE PULMONARY DISEASE W (ACUTE) EXACERBATION Status: Acute Current Visit: Yes (2) Anxiety SNOMED Code(s): 51232093 ICD Code: F41.9 - ANXIETY DISORDER, UNSPECIFIED Status: Chronic Current Visit: No (3) History of tobacco abuse SNOMED Code(s): 322052625, 142908697 ICD Code: Z87.891 - PERSONAL HISTORY OF NICOTINE DEPENDENCE Status: Chronic Current Visit: No (4) Oxygen dependent SNOMED Code(s): 235671899565 ICD Code: Z99.81 - DEPENDENCE ON SUPPLEMENTAL OXYGEN Status: Chronic Current Visit: No - Discharge Plan Home Medications: Home Meds Venlafaxine HCl [Venlafaxine ER] 75 mg PO BID 09/22/18 [History] cloNIDine [Catapres] 0.1 mg PO BID 09/22/18 [History] Umeclidinium [place] [Incruse Ellipta*] 1 puff IH DAILY 05/19/19 [History] Albuterol [Ventolin HFA] 2 puff INH BID PRN 08/06/19 [History] Escitalopram [Lexapro] 20 mg PO DAILY 08/06/19 [History] Oxybutynin 5 mg PO TID 08/06/19 [History] lisinopriL [Zestril] 10 mg PO DAILY 08/06/19 [History] Simvastatin [Zocor] 10 mg PO BEDTIME 09/01/19 [History] Acetaminophen [Tylenol] 650 mg PO Q6H PRN #20 tablet 11/16/19 [Rx] Omeprazole 20 mg PO ACBREAKFAST #30 cap.sr 11/16/19 [Rx] Sucralfate [Carafate] 1 gm PO QIDACANDBED #120 tablet 11/16/19 [Rx] Hydrocodone/Acetaminophen [[place] 7.5-325 Tablet] 1 each PO Q4HR PRN #14 tablet 02/18/20 [Rx] Albuterol Sulfate [Albuterol Sulfate Hfa] 8.5 gm IH ASDIRECTED PRN 03/01/20 [History] Budesonide/Formoterol [Symbicort 160-4.5 MCG] 1 puff INH BID PRN 03/01/20 [History] LORazepam [Lorazepam] 0.5 mg PO BID PRN 03/01/20 [History] Ondansetron [Zofran] 4 mg PO Q6H PRN 03/01/20 [History] Verapamil [Calan] 40 mg PO TID 03/01/20 [History] Fluticasone Propionate [Flovent] 1 puff IH BID 03/02/20 [History] Referrals: Diamond Zee MD [Resident] - 03/16/20 10:15 am (Please arrive 15 minutes early with your identification, insurance cards and your own facemask.) Vu Stern MD [Primary Care Provider] - - Patient Data Vitals - Most Recent: Last Vital Signs Temp 36.4 C 03/02/20 11:24 Pulse 76 03/02/20 11:24 Resp 16 03/02/20 11:24 BP 162/96 H 03/02/20 11:24 Pulse Ox 94 L 03/02/20 11:24 Weight - Most Recent: 59.012 kg I&O - Last 24 hours: Intake & Output 03/01/20 03/02/20 03/02/20 22:59 06:59 14:59 Intake Total 1300 1300 Output Total 500 1500 Balance 800 -200 Lab Results - Last 24 hrs: Laboratory Results - last 24 hr 03/02/20 Range/Units 04:43 WBC 12.24 H (4.0-11.0) K/uL RBC 3.99 L (4.30-5.90) M/uL Hgb 10.5 L (12.0-16.0) g/dL Hct 33.4 L (36.0-46.0) % MCV 83.7 (80.0-98.0) fL MCH 26.3 L (27.0-32.0) pg MCHC 31.4 (31.0-37.0) g/dL RDW Std Deviation 46.1 (28.0-62.0) fl RDW Coeff of Jamil 15 (11.0-15.0) % Plt Count 308 (150-400) K/uL MPV 9.60 (7.40-12.00) fL Neut % (Auto) 86.7 H (48.0-80.0) % Lymph % (Auto) 9.6 L (16.0-40.0) % [place] % (Auto) 3.6 (0.0-15.0) % Eos % (Auto) 0.0 (0.0-7.0) % Baso % (Auto) 0.1 (0.0-1.5) % Neut # (Auto) 10.6 H (1.4-5.7) K/uL Lymph # (Auto) 1.2 (0.6-2.4) K/uL [place] # (Auto) 0.4 (0.0-0.8) K/uL Eos # (Auto) 0.0 (0.0-0.7) K/uL Baso # (Auto) 0.0 (0.0-0.1) K/uL Nucleated RBC % 0.0 /100WBC Nucleated RBCs # 0 K/uL Med Orders - Current: Current Medications Acetaminophen (Tylenol) 650 mg PO Q6H PRN PRN Reason: Pain Hydrocodone Bitart/Acetaminophen ([place] 325-7.5 Mg) 1 tab PO Q4HR PRN PRN Reason: Pain Last Admin: 03/02/20 04:58 Dose: 1 tab Documented by: Albuterol/Ipratropium (Duoneb 3.0-0.5 Mg/3 Ml) 3 ml NEB Q4HRRT PRN PRN Reason: Shortness of Breath Last Admin: 03/02/20 09:57 Dose: 3 ml Documented by: Budesonide/Formoterol Fumarate (Symbicort 160-4.5 Mcg) 0 gm INH BID PRN PRN Reason: Shortness of Breath Clonidine HCl (Catapres) 0.1 mg PO BID [facility] Last Admin: 03/02/20 08:14 Dose: 0.1 mg Documented by: Escitalopram Oxalate (Lexapro) 20 mg PO DAILY [facility] Last Admin: 03/02/20 08:13 Dose: 20 mg Documented by: Sodium Chloride (Normal Saline) 500 mls @ 999 mls/hr IV .BOLUS [facility] Last Admin: 02/29/20 21:30 Dose: 999 mls/hr Documented by: Lisinopril (Prinivil) 10 mg PO DAILY [facility] Last Admin: 03/02/20 08:12 Dose: 10 mg Documented by: Lorazepam (Ativan) 0.5 mg PO BID PRN PRN Reason: Anxiety Last Admin: 03/01/20 23:55 Dose: 0.5 mg Documented by: Methylprednisolone Sodium Succinate (Solu-Medrol) 40 mg IVPUSH Q12H [facility] Last Admin: 03/02/20 08:14 Dose: 40 mg Documented by: Omeprazole (Omeprazole) 20 mg PO ACBREAKFAST [facility] Last Admin: 03/02/20 08:12 Dose: 20 mg Documented by: Ondansetron HCl (Zofran) 4 mg IVPUSH Q4H PRN PRN Reason: Nausea/Vomiting Oxybutynin Chloride (Oxybutynin) 5 mg PO TID [facility] Last Admin: 03/02/20 05:00 Dose: 5 mg Documented by: Umeclidinium [place] [Incruse Ellipta*] 1 Puff 0 each INH DAILY [facility] Last Admin: 03/02/20 10:31 Dose: 1 each Documented by: Fluticasone Propionate [Flovent] 50 Mcg 0 each INH BID [facility] Last Admin: 03/02/20 10:32 Dose: Not Given Documented by: Simvastatin (Zocor) 10 mg PO BEDTIME [facility] Last Admin: 03/01/20 20:46 Dose: 10 mg Documented by: Sodium Chloride (Saline Flush) 10 ml FLUSH ASDIRECTED PRN PRN Reason: Keep Vein Open Last Admin: 02/29/20 21:28 Dose: 10 ml Documented by: Sodium Chloride (Saline Flush) 2.5 ml FLUSH ASDIRECTED PRN PRN Reason: Keep Vein Open Last Admin: 02/29/20 21:28 Dose: 2.5 ml Documented by: Sucralfate (Carafate) 1 gm PO QIDACANDBED [facility] Last Admin: 03/02/20 11:16 Dose: 1 gm Documented by: Venlafaxine HCl (Effexor Xr) 75 mg PO BID [facility] Last Admin: 03/02/20 08:13 Dose: 75 mg Documented by: Verapamil HCl (Calan) 40 mg PO TID [facility] Last Admin: 03/02/20 05:00 Dose: 40 mg Documented by: Discontinued Medications Acetaminophen (Tylenol) 650 mg PO Q4H PRN PRN Reason: Pain (Mild 1-3)/fever Last Admin: 03/01/20 09:11 Dose: 650 mg Documented by: Albuterol/Ipratropium (Duoneb 3.0-0.5 Mg/3 Ml) 3 ml NEB ONETIME ONE Stop: 02/29/20 20:50 Last Admin: 02/29/20 21:11 Dose: 3 ml Documented by: Albuterol/Ipratropium (Duoneb 3.0-0.5 Mg/3 Ml) 3 ml NEB Q2H PRN PRN Reason: Wheezing Azithromycin (Zithromax) 500 mg PO Q24H ONE Stop: 03/02/20 09:40 Last Admin: 03/02/20 09:57 Dose: 500 mg Documented by: Dexamethasone (Dexamethasone) 10 mg IVPUSH ONETIME ONE Stop: 02/29/20 20:50 Last Admin: 02/29/20 21:28 Dose: 10 mg Documented by: Ketorolac Tromethamine (Toradol) 15 mg IVPUSH ONETIME ONE Stop: 02/29/20 21:41 Last Admin: 02/29/20 21:51 Dose: 15 mg Documented by:
--- NOTE | 2020-03-02 15:40 | PCM.PN ---
- General Info Date of Service: 03/02/20 Admission Dx/Problem (Free Text): Admission Diagnosis/Problem Admission Diagnosis/Problem Wheezing Subjective Update: she has been seen and examined at bedside, states she still feels short of breath and weak - Review of Systems General: Reports: Weakness, Fatigue. Denies: Fever, Malaise Pulmonary: Reports: Shortness of Breath, Cough. Denies: Pleuritic Chest Pain, Sputum, Hemoptysis Cardiovascular: Reports: Dyspnea on Exertion. Denies: Chest Pain, Palpitations, Orthopnea Gastrointestinal: Denies: Abdominal Pain, Constipation, Decreased Appetite Genitourinary: Denies: Dysuria, Frequency, Burning Musculoskeletal: Denies: Neck Pain, Shoulder Pain, Arm Pain - Patient Data Vitals - Most Recent: Last Vital Signs Temp 36.4 C 03/02/20 11:24 Pulse 76 03/02/20 11:24 Resp 20 03/02/20 11:24 BP 162/96 H 03/02/20 11:24 Pulse Ox 94 L 03/02/20 11:24 Weight - Most Recent: 59.012 kg I&O - Last 24 Hours: Intake & Output 03/02/20 03/02/20 03/02/20 06:59 14:59 22:59 Intake Total 1300 Output Total 1500 Balance -200 Lab Results Last 24 Hours: Laboratory Results - last 24 hr 03/02/20 Range/Units 04:43 WBC 12.24 H (4.0-11.0) K/uL RBC 3.99 L (4.30-5.90) M/uL Hgb 10.5 L (12.0-16.0) g/dL Hct 33.4 L (36.0-46.0) % MCV 83.7 (80.0-98.0) fL MCH 26.3 L (27.0-32.0) pg MCHC 31.4 (31.0-37.0) g/dL RDW Std Deviation 46.1 (28.0-62.0) fl RDW Coeff of Jamil 15 (11.0-15.0) % Plt Count 308 (150-400) K/uL MPV 9.60 (7.40-12.00) fL Neut % (Auto) 86.7 H (48.0-80.0) % Lymph % (Auto) 9.6 L (16.0-40.0) % [place] % (Auto) 3.6 (0.0-15.0) % Eos % (Auto) 0.0 (0.0-7.0) % Baso % (Auto) 0.1 (0.0-1.5) % Neut # (Auto) 10.6 H (1.4-5.7) K/uL Lymph # (Auto) 1.2 (0.6-2.4) K/uL [place] # (Auto) 0.4 (0.0-0.8) K/uL Eos # (Auto) 0.0 (0.0-0.7) K/uL Baso # (Auto) 0.0 (0.0-0.1) K/uL Nucleated RBC % 0.0 /100WBC Nucleated RBCs # 0 K/uL Med Orders - Current: Current Medications Acetaminophen (Tylenol) 650 mg PO Q6H PRN PRN Reason: Pain Hydrocodone Bitart/Acetaminophen ([place] 325-7.5 Mg) 1 tab PO Q4HR PRN PRN Reason: Pain Last Admin: 03/02/20 13:17 Dose: 1 tab Documented by: Albuterol/Ipratropium (Duoneb 3.0-0.5 Mg/3 Ml) 3 ml NEB Q4HRRT PRN PRN Reason: Shortness of Breath Last Admin: 03/02/20 13:50 Dose: 3 ml Documented by: Budesonide/Formoterol Fumarate (Symbicort 160-4.5 Mcg) 0 gm INH BID PRN PRN Reason: Shortness of Breath Clonidine HCl (Catapres) 0.1 mg PO BID [facility] Last Admin: 03/02/20 08:14 Dose: 0.1 mg Documented by: Escitalopram Oxalate (Lexapro) 20 mg PO DAILY [facility] Last Admin: 03/02/20 08:13 Dose: 20 mg Documented by: Guaifenesin/Dextromethorphan (Robitussin Dm) 10 ml PO Q4H PRN PRN Reason: Cough Sodium Chloride (Normal Saline) 500 mls @ 999 mls/hr IV .BOLUS [facility] Last Admin: 02/29/20 21:30 Dose: 999 mls/hr Documented by: Lisinopril (Prinivil) 10 mg PO DAILY [facility] Last Admin: 03/02/20 08:12 Dose: 10 mg Documented by: Lorazepam (Ativan) 0.5 mg PO BID PRN PRN Reason: Anxiety Last Admin: 03/01/20 23:55 Dose: 0.5 mg Documented by: Methylprednisolone Sodium Succinate (Solu-Medrol) 40 mg IVPUSH Q12H [facility] Last Admin: 03/02/20 08:14 Dose: 40 mg Documented by: Omeprazole (Omeprazole) 20 mg PO ACBREAKFAST [facility] Last Admin: 03/02/20 08:12 Dose: 20 mg Documented by: Ondansetron HCl (Zofran) 4 mg IVPUSH Q4H PRN PRN Reason: Nausea/Vomiting Oxybutynin Chloride (Oxybutynin) 5 mg PO TID [facility] Last Admin: 03/02/20 13:17 Dose: 5 mg Documented by: Umeclidinium [place] [Incruse Ellipta*] 1 Puff 0 each INH DAILY [facility] Last Admin: 03/02/20 10:31 Dose: 1 each Documented by: Fluticasone Propionate [Flovent] 50 Mcg 0 each INH BID [facility] Last Admin: 03/02/20 10:32 Dose: Not Given Documented by: Simvastatin (Zocor) 10 mg PO BEDTIME [facility] Last Admin: 03/01/20 20:46 Dose: 10 mg Documented by: Sodium Chloride (Saline Flush) 10 ml FLUSH ASDIRECTED PRN PRN Reason: Keep Vein Open Last Admin: 02/29/20 21:28 Dose: 10 ml Documented by: Sodium Chloride (Saline Flush) 2.5 ml FLUSH ASDIRECTED PRN PRN Reason: Keep Vein Open Last Admin: 02/29/20 21:28 Dose: 2.5 ml Documented by: Sucralfate (Carafate) 1 gm PO QIDACANDBED [facility] Last Admin: 03/02/20 11:16 Dose: 1 gm Documented by: Venlafaxine HCl (Effexor Xr) 75 mg PO BID [facility] Last Admin: 03/02/20 08:13 Dose: 75 mg Documented by: Verapamil HCl (Calan) 40 mg PO TID [facility] Last Admin: 03/02/20 13:17 Dose: 40 mg Documented by: Discontinued Medications Acetaminophen (Tylenol) 650 mg PO Q4H PRN PRN Reason: Pain (Mild 1-3)/fever Last Admin: 03/01/20 09:11 Dose: 650 mg Documented by: Albuterol/Ipratropium (Duoneb 3.0-0.5 Mg/3 Ml) 3 ml NEB ONETIME ONE Stop: 02/29/20 20:50 Last Admin: 02/29/20 21:11 Dose: 3 ml Documented by: Albuterol/Ipratropium (Duoneb 3.0-0.5 Mg/3 Ml) 3 ml NEB Q2H PRN PRN Reason: Wheezing Azithromycin (Zithromax) 500 mg PO Q24H ONE Stop: 03/02/20 09:40 Last Admin: 03/02/20 09:57 Dose: 500 mg Documented by: Dexamethasone (Dexamethasone) 10 mg IVPUSH ONETIME ONE Stop: 02/29/20 20:50 Last Admin: 02/29/20 21:28 Dose: 10 mg Documented by: Ketorolac Tromethamine (Toradol) 15 mg IVPUSH ONETIME ONE Stop: 02/29/20 21:41 Last Admin: 02/29/20 21:51 Dose: 15 mg Documented by: - Exam Quality Assessment: Supplemental Oxygen General: Alert, Oriented Neck: Supple Lungs: Clear to Auscultation, Normal Respiratory Effort, Decreased Breath Sounds, Wheezing Cardiovascular: Regular Rate, Regular Rhythm Sepsis Event Note - Evaluation Sepsis Screening Result: No Definite Risk - Focused Exam Vital Signs: Vital Signs Temp Pulse Resp BP BP Pulse Ox Pulse Ox 03/02/20 11:24 36.4 C 76 20 162/96 H 94 L 03/02/20 09:00 97 03/02/20 08:14 174/100 H 03/02/20 08:12 174/100 H 03/02/20 07:55 36.6 C 78 20 174/100 H 97 03/02/20 05:00 97 03/02/20 04:00 36.3 C 65 16 192/101 H 97 - Problem List & Annotations (1) COPD exacerbation SNOMED Code(s): 194797203 Code(s): J44.1 - CHRONIC OBSTRUCTIVE PULMONARY DISEASE W (ACUTE) EXACERBATION Status: Acute Current Visit: Yes (2) Anxiety SNOMED Code(s): 25505465 Code(s): F41.9 - ANXIETY DISORDER, UNSPECIFIED Status: Chronic Current Visit: No (3) History of tobacco abuse SNOMED Code(s): 292715124, 134628006 Code(s): Z87.891 - PERSONAL HISTORY OF NICOTINE DEPENDENCE Status: Chronic Current Visit: No (4) Oxygen dependent SNOMED Code(s): 469435906660 Code(s): Z99.81 - DEPENDENCE ON SUPPLEMENTAL OXYGEN Status: Chronic Current Visit: No - Problem List Review Problem List Initiated/Reviewed/Updated: Yes - My Orders Last 24 Hours: My Active Orders 03/02/20 15:37 Dextromethorphan/guaiFENesin [Robitussin DM] 10 ml PO Q4H PRN - Plan Plan:: 64 y/o F admitted for COPD exacerbation, possible bronchitis continue IV Solu-Medrol 40 mg twice a day Duo-nebs when necessary for shortness of breath start azithromycin for possible bronchitis oxygenation via nasal cannula , currently patient is at her baseline of 2 L Continue home meds monitor and replete electrolyte as needed SCD for DVT prophylaxis patient feels short of breath about ambulation, will keep her for 1 more day
[2020-03-02] MEDS: guaiFENesin/Dextromethorphan 100-10 MG/5 ML Soln 10 ML Cup PO PRN ×2 (16:59→21:46)
[2020-03-02] MEDS: Simvastatin 10 MG Tab PO SCH (21:33)
[2020-03-02] MEDS: LORazepam 0.5 MG Tab PO PRN (21:47)
[2020-03-03] MEDS: Sucralfate 1 GM Tab PO SCH ×3 (06:49→16:18)
[2020-03-03] MEDS: Oxybutynin 5 MG Tab PO SCH ×2 (06:49→13:39)
[2020-03-03] MEDS: Omeprazole 20 MG Cap.CR PO SCH (06:49)
[2020-03-03] MEDS: Lisinopril 10 MG Tab PO SCH (08:19)
[2020-03-03] MEDS: Venlafaxine 75 MG Cap.ER PO SCH (08:19)
[2020-03-03] MEDS: Escitalopram 10 MG Tab PO SCH (08:20)
[2020-03-03] MEDS: UMECLIDINIUM BROMIDE INH SCH (08:21)
[2020-03-03] MEDS: cloNIDine 0.1 MG Tab PO SCH (08:23)
[2020-03-03] MEDS: methylPREDNISolone Sodium Succinate 40 MG/1 ML SDV IVPUSH SCH (08:24)
[2020-03-03] MEDS: FLUTICASONE PROPIONATE 50 MCG INH SCH (08:26)
[2020-03-03] MEDS: Albuterol/Ipratropium 3.0-0.5 MG/3 ML Neb Soln NEB PRN ×2 (09:10→15:30)
[2020-03-03] MEDS: Acetaminophen/HYDROcodone 325-7.5 MG Tab PO PRN ×2 (10:51→17:50)
--- NOTE | 2020-03-03 11:53 | CT ---
CT chest Technique: Multiple axial sections through the chest were obtained. Intravenous contrast was utilized. Study has been performed as a pulmonary angiogram protocol. Comparison: Prior CT chest study of 12/25/19. Findings: Pulmonary arteries are well-opacified. No filling defects are seen to indicate pulmonary embolism. Aorta shows no aneurysm or dissection. Mild atherosclerotic change is noted within the aorta. Mediastinum shows no adenopathy. Several slightly prominent right hilar lymph nodes are seen which appear less prominent than on prior study. No axillary adenopathy is seen. Emphysematous changes are present. Decreased parenchymal density within the right upper lung as seen on prior study is noted. There is some residual density as well as linear findings extending to the lateral pleural margin. This finding is also improved from prior exam. Minimal pericardial effusion is seen which appears stable. Visualized upper abdominal structures show nothing acute. Bone window settings were reviewed which shows no acute osseous finding. Impression: 1. No findings of pulmonary embolism. 2. Parenchymal density within the upper right lung which has diminished in size from previous exam. Please correlate if this represents treated lung cancer or treated pneumonia. Findings have not yet completely resolved. 3. Emphysematous change. Nothing acute is otherwise appreciated. Diagnostic code #3 This report was dictated in MDT
[2020-03-03] MEDS: guaiFENesin/Dextromethorphan 100-10 MG/5 ML Soln 10 ML Cup PO PRN (13:39)
--- NOTE | 2020-03-03 13:41 | PCM.DCSUM1 ---
Discharge Summary - Hospital Course Free Text/Narrative:: Patient is 64-year-old female with a history of COPD who presents with suspected COPD exacerbation. She states that she was diagnosed COVID a couple months ago, was admitted to the ICU, intubated, in a coma for 10 days, eventually discharged to rehab on antibiotics because she had post viral pneumonia, eventually she was able to get through all of that and has been home from rehab now for a couple of weeks. She is on 2 L of oxygen at home chronically. She states that she has follow-up with her PCP tomorrow but all day today she has had a nonproductive cough, a mild headache, and a sore throat she suspects is from all the coughing. She denies chest pain. She denies fever or chills. Denies vomiting diarrhea. In the ER she received IV steroids and DuoNebs, her CXR was unremarkable, she was till feeling SOB hence was admitted for further management. Patient was started on IV steroids, next day her cough was worse,patient was started on IV azithromycin for possible bronchitis. Oxygenation was stable on 2L. Patients BP was elevated (likely due to steroids) and received IV antihypertensives, BP was better and patients breathing was back to baseline. Patient was medically stable for dc on PO steroid and oral antibiotics. Diagnosis: Stroke: No - Discharge Data Discharge Date: 03/07/20 Discharge Disposition: Home, Self-Care 01 Condition: Fair - Referral to Home Health Primary Care Physician: Vu Stern MD - Discharge Diagnosis/Problem(s) (1) COPD exacerbation SNOMED Code(s): 846782706 ICD Code: J44.1 - CHRONIC OBSTRUCTIVE PULMONARY DISEASE W (ACUTE) EXACERBATION Status: Acute (2) Anxiety SNOMED Code(s): 93023823 ICD Code: F41.9 - ANXIETY DISORDER, UNSPECIFIED Status: Chronic (3) History of tobacco abuse SNOMED Code(s): 129142940, 293702014 ICD Code: Z87.891 - PERSONAL HISTORY OF NICOTINE DEPENDENCE Status: Chronic (4) Oxygen dependent SNOMED Code(s): 235805341071 ICD Code: Z99.81 - DEPENDENCE ON SUPPLEMENTAL OXYGEN Status: Chronic - Patient Instructions Diet: Heart Healthy Diet Driving: May Drive Today Showering/Bathing: May Shower Notify Provider of: Fever, Increased Pain, Nausea and/or Vomiting - Discharge Plan *PRESCRIPTION DRUG MONITORING PROGRAM REVIEWED*: No *COPY OF PRESCRIPTION DRUG MONITORING REPORT IN PATIENT KARIE: No Prescriptions/Med Rec: Azithromycin 250 mg PO DAILY #5 tablet predniSONE [Prednisone] 40 mg PO DAILY #5 tablet Home Medications: Home Meds Venlafaxine HCl [Venlafaxine ER] 75 mg PO BID 09/22/18 [History] cloNIDine [Catapres] 0.1 mg PO BID 09/22/18 [History] Umeclidinium [place] [Incruse Ellipta*] 1 puff IH DAILY 05/19/19 [History] Albuterol [Ventolin HFA] 2 puff INH BID PRN 08/06/19 [History] Escitalopram [Lexapro] 20 mg PO DAILY 08/06/19 [History] Oxybutynin 5 mg PO TID 08/06/19 [History] lisinopriL [Zestril] 10 mg PO DAILY 08/06/19 [History] Simvastatin [Zocor] 10 mg PO BEDTIME 09/01/19 [History] Acetaminophen [Tylenol] 650 mg PO Q6H PRN #20 tablet 11/16/19 [Rx] Omeprazole 20 mg PO ACBREAKFAST #30 cap.sr 11/16/19 [Rx] Sucralfate [Carafate] 1 gm PO QIDACANDBED #120 tablet 11/16/19 [Rx] Hydrocodone/Acetaminophen [[place] 7.5-325 Tablet] 1 each PO Q4HR PRN #14 tablet 02/18/20 [Rx] Albuterol Sulfate [Albuterol Sulfate Hfa] 8.5 gm IH ASDIRECTED PRN 03/01/20 [History] Budesonide/Formoterol [Symbicort 160-4.5 MCG] 1 puff INH BID PRN 03/01/20 [History] LORazepam [Lorazepam] 0.5 mg PO BID PRN 03/01/20 [History] Ondansetron [Zofran] 4 mg PO Q6H PRN 03/01/20 [History] Verapamil [Calan] 40 mg PO TID 03/01/20 [History] Azithromycin 250 mg PO DAILY #5 tablet 03/02/20 [Rx] Fluticasone Propionate [Flovent] 1 puff IH BID 03/02/20 [History] predniSONE [Prednisone] 40 mg PO DAILY #5 tablet 03/02/20 [Rx] Patient Handouts: Chronic Obstructive Pulmonary Disease, [id number], Azithromycin tablets, Prednisolone tablets Referrals: Diamond Zee MD [Resident] - 03/16/20 10:15 am (Please arrive 15 minutes early with your identification, insurance cards and your own facemask.) Vu Stern MD [Primary Care Provider] - - Discharge Summary/Plan Comment DC Time >30 min.: No - Patient Data Vitals - Most Recent: Last Vital Signs Temp 36.9 C 03/03/20 12:00 Pulse 83 03/03/20 12:00 Resp 20 03/03/20 12:00 BP 170/106 H 03/03/20 12:00 Pulse Ox 94 L 03/03/20 12:00 Weight - Most Recent: 59.012 kg I&O - Last 24 hours: Intake & Output 03/02/20 03/03/20 03/03/20 22:59 06:59 14:59 Intake Total 740 840 Output Total 850 950 Balance -110 -110 Lab Results - Last 24 hrs: Laboratory Results - last 24 hr 03/03/20 Range/Units 05:00 WBC 18.03 H (4.0-11.0) K/uL RBC 4.15 L (4.30-5.90) M/uL Hgb 10.8 L (12.0-16.0) g/dL Hct 34.5 L (36.0-46.0) % MCV 83.1 (80.0-98.0) fL MCH 26.0 L (27.0-32.0) pg MCHC 31.3 (31.0-37.0) g/dL RDW Std Deviation 45.8 (28.0-62.0) fl RDW Coeff of Jamil 15 (11.0-15.0) % Plt Count 321 (150-400) K/uL MPV 9.50 (7.40-12.00) fL Neut % (Auto) 92.7 H (48.0-80.0) % Lymph % (Auto) 5.8 L (16.0-40.0) % [place] % (Auto) 1.4 (0.0-15.0) % Eos % (Auto) 0.1 (0.0-7.0) % Baso % (Auto) 0.0 (0.0-1.5) % Neut # (Auto) 16.7 H (1.4-5.7) K/uL Lymph # (Auto) 1.1 (0.6-2.4) K/uL [place] # (Auto) 0.3 (0.0-0.8) K/uL Eos # (Auto) 0.0 (0.0-0.7) K/uL Baso # (Auto) 0.0 (0.0-0.1) K/uL Nucleated RBC % 0.0 /100WBC Nucleated RBCs # 0 K/uL Med Orders - Current: Current Medications Acetaminophen (Tylenol) 650 mg PO Q6H PRN PRN Reason: Pain Hydrocodone Bitart/Acetaminophen ([place] 325-7.5 Mg) 1 tab PO Q4HR PRN PRN Reason: Pain Last Admin: 03/03/20 10:51 Dose: 1 tab Documented by: Albuterol/Ipratropium (Duoneb 3.0-0.5 Mg/3 Ml) 3 ml NEB Q4HRRT PRN PRN Reason: Shortness of Breath Last Admin: 03/03/20 09:10 Dose: 3 ml Documented by: Budesonide/Formoterol Fumarate (Symbicort 160-4.5 Mcg) 0 gm INH BID PRN PRN Reason: Shortness of Breath Clonidine HCl (Catapres) 0.1 mg PO BID [facility] Last Admin: 03/03/20 08:23 Dose: 0.1 mg Documented by: Escitalopram Oxalate (Lexapro) 20 mg PO DAILY [facility] Last Admin: 03/03/20 08:20 Dose: 20 mg Documented by: Guaifenesin/Dextromethorphan (Robitussin Dm) 10 ml PO Q4H PRN PRN Reason: Cough Last Admin: 03/02/20 21:46 Dose: 10 ml Documented by: Sodium Chloride (Normal Saline) 500 mls @ 999 mls/hr IV .BOLUS [facility] Last Admin: 02/29/20 21:30 Dose: 999 mls/hr Documented by: Lisinopril (Prinivil) 10 mg PO DAILY [facility] Last Admin: 03/03/20 08:19 Dose: 10 mg Documented by: Lorazepam (Ativan) 0.5 mg PO BID PRN PRN Reason: Anxiety Last Admin: 03/02/20 21:47 Dose: 0.5 mg Documented by: Methylprednisolone Sodium Succinate (Solu-Medrol) 40 mg IVPUSH Q12H [facility] Last Admin: 03/03/20 08:24 Dose: 40 mg Documented by: Omeprazole (Omeprazole) 20 mg PO ACBREAKFAST [facility] Last Admin: 03/03/20 06:49 Dose: 20 mg Documented by: Ondansetron HCl (Zofran) 4 mg IVPUSH Q4H PRN PRN Reason: Nausea/Vomiting Oxybutynin Chloride (Oxybutynin) 5 mg PO TID [facility] Last Admin: 03/03/20 06:49 Dose: 5 mg Documented by: Umeclidinium [place] [Incruse Ellipta*] 1 Puff 0 each INH DAILY [facility] Last Admin: 03/03/20 08:21 Dose: Not Given Documented by: Fluticasone Propionate [Flovent] 50 Mcg 0 each INH BID [facility] Last Admin: 03/03/20 08:26 Dose: Not Given Documented by: Simvastatin (Zocor) 10 mg PO BEDTIME [facility] Last Admin: 03/02/20 21:33 Dose: 10 mg Documented by: Sodium Chloride (Saline Flush) 10 ml FLUSH ASDIRECTED PRN PRN Reason: Keep Vein Open Last Admin: 02/29/20 21:28 Dose: 10 ml Documented by: Sodium Chloride (Saline Flush) 2.5 ml FLUSH ASDIRECTED PRN PRN Reason: Keep Vein Open Last Admin: 02/29/20 21:28 Dose: 2.5 ml Documented by: Sucralfate (Carafate) 1 gm PO QIDACANDBED [facility] Last Admin: 03/03/20 11:24 Dose: 1 gm Documented by: Venlafaxine HCl (Effexor Xr) 75 mg PO BID [facility] Last Admin: 03/03/20 08:19 Dose: 75 mg Documented by: Verapamil HCl ([place]) 40 mg PO TID [facility] Last Admin: 03/03/20 06:49 Dose: 40 mg Documented by: Discontinued Medications Acetaminophen (Tylenol) 650 mg PO Q4H PRN PRN Reason: Pain (Mild 1-3)/fever Last Admin: 03/01/20 09:11 Dose: 650 mg Documented by: Albuterol/Ipratropium (Duoneb 3.0-0.5 Mg/3 Ml) 3 ml NEB ONETIME ONE Stop: 02/29/20 20:50 Last Admin: 02/29/20 21:11 Dose: 3 ml Documented by: Albuterol/Ipratropium (Duoneb 3.0-0.5 Mg/3 Ml) 3 ml NEB Q2H PRN PRN Reason: Wheezing Azithromycin (Zithromax) 500 mg PO Q24H ONE Stop: 03/02/20 09:40 Last Admin: 03/02/20 09:57 Dose: 500 mg Documented by: Dexamethasone (Dexamethasone) 10 mg IVPUSH ONETIME ONE Stop: 02/29/20 20:50 Last Admin: 02/29/20 21:28 Dose: 10 mg Documented by: Ketorolac Tromethamine (Toradol) 15 mg IVPUSH ONETIME ONE Stop: 02/29/20 21:41 Last Admin: 02/29/20 21:51 Dose: 15 mg Documented by:
[2020-03-03] MEDS: LORazepam 0.5 MG Tab PO PRN (13:42)
[2020-03-03] MEDS ORDERED: Iopamidol 755 Mg/ML 100 ML Bottle IVPUSH STA (14:06)
[2020-03-03] MEDS ORDERED: hydrALAZINE 20 MG/ML SDV IVPUSH ONE (15:28)
[2020-03-03 16:47] VITALS: PULSE 75
[2020-03-03 16:48] VITALS: BP 155/85
--- NOTE | 2020-03-03 17:12 | PCM.PN ---
- Patient Data Vitals - Most Recent: Last Vital Signs Temp 36.9 C 03/03/20 12:00 Pulse 75 03/03/20 15:55 Resp 20 03/03/20 12:00 BP 155/85 H 03/03/20 16:47 Pulse Ox 94 L 03/03/20 12:00 Weight - Most Recent: 59.012 kg I&O - Last 24 Hours: Intake & Output 03/03/20 03/03/20 03/03/20 06:59 14:59 22:59 Intake Total 840 Output Total 950 Balance -110 Lab Results Last 24 Hours: Laboratory Results - last 24 hr 03/03/20 Range/Units 05:00 WBC 18.03 H (4.0-11.0) K/uL RBC 4.15 L (4.30-5.90) M/uL Hgb 10.8 L (12.0-16.0) g/dL Hct 34.5 L (36.0-46.0) % MCV 83.1 (80.0-98.0) fL MCH 26.0 L (27.0-32.0) pg MCHC 31.3 (31.0-37.0) g/dL RDW Std Deviation 45.8 (28.0-62.0) fl RDW Coeff of Jamil 15 (11.0-15.0) % Plt Count 321 (150-400) K/uL MPV 9.50 (7.40-12.00) fL Neut % (Auto) 92.7 H (48.0-80.0) % Lymph % (Auto) 5.8 L (16.0-40.0) % [place] % (Auto) 1.4 (0.0-15.0) % Eos % (Auto) 0.1 (0.0-7.0) % Baso % (Auto) 0.0 (0.0-1.5) % Neut # (Auto) 16.7 H (1.4-5.7) K/uL Lymph # (Auto) 1.1 (0.6-2.4) K/uL [place] # (Auto) 0.3 (0.0-0.8) K/uL Eos # (Auto) 0.0 (0.0-0.7) K/uL Baso # (Auto) 0.0 (0.0-0.1) K/uL Nucleated RBC % 0.0 /100WBC Nucleated RBCs # 0 K/uL Med Orders - Current: Current Medications Acetaminophen (Tylenol) 650 mg PO Q6H PRN PRN Reason: Pain Last Admin: 03/03/20 16:18 Dose: 650 mg Documented by: Hydrocodone Bitart/Acetaminophen ([place] 325-7.5 Mg) 1 tab PO Q4HR PRN PRN Reason: Pain Last Admin: 03/03/20 10:51 Dose: 1 tab Documented by: Albuterol/Ipratropium (Duoneb 3.0-0.5 Mg/3 Ml) 3 ml NEB Q4HRRT PRN PRN Reason: Shortness of Breath Last Admin: 03/03/20 15:30 Dose: 3 ml Documented by: Budesonide/Formoterol Fumarate (Symbicort 160-4.5 Mcg) 0 gm INH BID PRN PRN Reason: Shortness of Breath Clonidine HCl (Catapres) 0.1 mg PO BID [facility] Last Admin: 03/03/20 08:23 Dose: 0.1 mg Documented by: Escitalopram Oxalate (Lexapro) 20 mg PO DAILY [facility] Last Admin: 03/03/20 08:20 Dose: 20 mg Documented by: Guaifenesin/Dextromethorphan (Robitussin Dm) 10 ml PO Q4H PRN PRN Reason: Cough Last Admin: 03/03/20 13:39 Dose: 10 ml Documented by: Sodium Chloride (Normal Saline) 500 mls @ 999 mls/hr IV .BOLUS [facility] Last Admin: 02/29/20 21:30 Dose: 999 mls/hr Documented by: Lisinopril (Prinivil) 10 mg PO DAILY [facility] Last Admin: 03/03/20 08:19 Dose: 10 mg Documented by: Lorazepam (Ativan) 0.5 mg PO BID PRN PRN Reason: Anxiety Last Admin: 03/03/20 13:42 Dose: 0.5 mg Documented by: Methylprednisolone Sodium Succinate (Solu-Medrol) 40 mg IVPUSH Q12H [facility] Last Admin: 03/03/20 08:24 Dose: 40 mg Documented by: Omeprazole (Omeprazole) 20 mg PO ACBREAKFAST [facility] Last Admin: 03/03/20 06:49 Dose: 20 mg Documented by: Ondansetron HCl (Zofran) 4 mg IVPUSH Q4H PRN PRN Reason: Nausea/Vomiting Oxybutynin Chloride (Oxybutynin) 5 mg PO TID [facility] Last Admin: 03/03/20 13:39 Dose: 5 mg Documented by: Umeclidinium [place] [Incruse Ellipta*] 1 Puff 0 each INH DAILY [facility] Last Admin: 03/03/20 08:21 Dose: Not Given Documented by: Fluticasone Propionate [Flovent] 50 Mcg 0 each INH BID [facility] Last Admin: 03/03/20 08:26 Dose: Not Given Documented by: Simvastatin (Zocor) 10 mg PO BEDTIME [facility] Last Admin: 03/02/20 21:33 Dose: 10 mg Documented by: Sodium Chloride (Saline Flush) 10 ml FLUSH ASDIRECTED PRN PRN Reason: Keep Vein Open Last Admin: 02/29/20 21:28 Dose: 10 ml Documented by: Sodium Chloride (Saline Flush) 2.5 ml FLUSH ASDIRECTED PRN PRN Reason: Keep Vein Open Last Admin: 02/29/20 21:28 Dose: 2.5 ml Documented by: Sucralfate (Carafate) 1 gm PO QIDACANDBED [facility] Last Admin: 03/03/20 16:18 Dose: 1 gm Documented by: Venlafaxine HCl (Effexor Xr) 75 mg PO BID [facility] Last Admin: 03/03/20 08:19 Dose: 75 mg Documented by: Verapamil HCl (Calan) 40 mg PO TID [facility] Last Admin: 03/03/20 13:39 Dose: 40 mg Documented by: Discontinued Medications Acetaminophen (Tylenol) 650 mg PO Q4H PRN PRN Reason: Pain (Mild 1-3)/fever Last Admin: 03/01/20 09:11 Dose: 650 mg Documented by: Albuterol/Ipratropium (Duoneb 3.0-0.5 Mg/3 Ml) 3 ml NEB ONETIME ONE Stop: 02/29/20 20:50 Last Admin: 02/29/20 21:11 Dose: 3 ml Documented by: Albuterol/Ipratropium (Duoneb 3.0-0.5 Mg/3 Ml) 3 ml NEB Q2H PRN PRN Reason: Wheezing Azithromycin (Zithromax) 500 mg PO Q24H ONE Stop: 03/02/20 09:40 Last Admin: 03/02/20 09:57 Dose: 500 mg Documented by: Dexamethasone (Dexamethasone) 10 mg IVPUSH ONETIME ONE Stop: 02/29/20 20:50 Last Admin: 02/29/20 21:28 Dose: 10 mg Documented by: Hydralazine HCl (Apresoline) 20 mg IVPUSH ONETIME ONE Stop: 03/03/20 15:29 Last Admin: 03/03/20 15:59 Dose: 20 mg Documented by: Iopamidol (Isovue-370 (76%)) 50 ml IVPUSH ONETIME STA Stop: 03/03/20 14:07 Last Admin: 03/03/20 14:06 Dose: 50 ml Documented by: Ketorolac Tromethamine (Toradol) 15 mg IVPUSH ONETIME ONE Stop: 02/29/20 21:41 Last Admin: 02/29/20 21:51 Dose: 15 mg Documented by: Sepsis Event Note - Evaluation Sepsis Screening Result: No Definite Risk - Focused Exam Vital Signs: Vital Signs Temp Pulse Resp BP BP Pulse Ox 03/03/20 16:47 155/85 H 03/03/20 15:55 75 193/103 H 03/03/20 12:00 36.9 C 83 20 170/106 H 94 L 03/03/20 08:23 168/108 H 03/03/20 08:19 168/108 H 03/03/20 08:00 36.2 C 75 20 189/100 H 97 - Problem List & Annotations (1) COPD exacerbation SNOMED Code(s): 469614736 Code(s): J44.1 - CHRONIC OBSTRUCTIVE PULMONARY DISEASE W (ACUTE) EXACERBATION Status: Acute Current Visit: Yes (2) Anxiety SNOMED Code(s): 58814023 Code(s): F41.9 - ANXIETY DISORDER, UNSPECIFIED Status: Chronic Current Visit: No (3) History of tobacco abuse SNOMED Code(s): 178131557, 452508941 Code(s): Z87.891 - PERSONAL HISTORY OF NICOTINE DEPENDENCE Status: Chronic Current Visit: No (4) Oxygen dependent SNOMED Code(s): 860258240174 Code(s): Z99.81 - DEPENDENCE ON SUPPLEMENTAL OXYGEN Status: Chronic Current Visit: No - My Orders Last 24 Hours: My Active Orders 03/03/20 14:33 Ready for Discharge [RC] PER UNIT ROUTINE - Plan Plan:: 64 y/o F admitted for COPD exacerbation, possible bronchitis continue IV Solu-Medrol 40 mg twice a day Duo-nebs when necessary for shortness of breath start azithromycin for possible bronchitis oxygenation via nasal cannula , currently patient is at her baseline of 2 L Continue home meds monitor and replete electrolyte as needed SCD for DVT prophylaxis patient feels short of breath about ambulation, will keep her for 1 more day
== END 2020-03-03 19:50 | disposition home or self-care (01) ==
LOC: MW.ED 19:07 → MW.MS 22:25
PROVIDERS: ADMIT Student in an Organized Health Care Education/Training Program; ATTEND Student in an Organized Health Care Education/Training Program
DX: J44.1 Chronic obstructive pulmonary disease with (acute) exacerbation (principal); I10 Essential (primary) hypertension; F41.9 Anxiety disorder, unspecified; F32.9 Major depressive disorder, single episode, unspecified; Z20.828 Contact with and (suspected) exposure to other viral communicable diseases; Z79.899 Other long term (current) drug therapy; Z87.891 Personal history of nicotine dependence; Z99.81 Dependence on supplemental oxygen
CPT/HCPCS: 36415; 71045; 71275; 80053; 81003; 84484; 85025; 93005; 94640; 96374; 96375; 96376; 99285; A9270; G0378; J0360; J1100; J1885; J2920; J7040; Q9967; U0002; 99217; 99218; 99224; 99283; J7620-GY

== ENCOUNTER 2020-03-10 12:56 | Observation (INO) | payer MEDICARE, MEDICAID, OTHER ==
[2020-03-10] MEDS ORDERED: Albuterol/Ipratropium 3.0-0.5 MG/3 ML Neb Soln NEB ONE (13:05)
[2020-03-10] MEDS ORDERED: Sodium Chloride 0.9% 1,000 ML IV ONE (13:05)
[2020-03-10] MEDS ORDERED: Sodium Chloride 0.9% 2.5 ML Syringe FLUSH PRN (13:05)
[2020-03-10] MEDS ORDERED: methylPREDNISolone Sodium Succinate 125 MG/2 ML SDV IVPUSH ONE (13:05)
[2020-03-10] MEDS ORDERED: Sodium Chloride 0.9% 10 ML Syringe FLUSH PRN (13:05)
[2020-03-10] MEDS ORDERED: Magnesium Sulfate/Water 2 GM in Premix Bag 1 BAG IV ONE (13:07)
[2020-03-10] MEDS ORDERED: Terbutaline 1 MG/ML SDV SUBCUT ONE (13:07)
--- NOTE | 2020-03-10 13:08 | EDM.PDOC ---
ED HPI GENERAL MEDICAL PROBLEM - General Chief Complaint: Respiratory Problem Stated Complaint: SOB COPD Time Seen by Provider: 03/10/20 13:05 Source of Information: Reports: Patient History Limitations: Reports: Respiratory Distress - History of Present Illness INITIAL COMMENTS - FREE TEXT/NARRATIVE: 64F PMHx COPD on home O2 and requiring multiple intubations, h/o IVDA, Hep C, anxiety, alcohol abuse, HTN presenting for difficulty breathing. Limited history 2/2 respiratory distress. mouth Pain Score (Numeric/FACES): 9 - Related Data Allergies Allergy/AdvReac Type Severity Reaction Status Date / Time No Known Allergies Allergy Verified 03/10/20 13:06 Home Meds: Home Meds Venlafaxine HCl [Venlafaxine ER] 75 mg PO BID 09/22/18 [History] cloNIDine [Catapres] 0.1 mg PO BID 09/22/18 [History] Umeclidinium [place] [Incruse Ellipta*] 1 puff IH DAILY 05/19/19 [History] Albuterol [Ventolin HFA] 2 puff INH BID PRN 08/06/19 [History] Escitalopram [Lexapro] 20 mg PO DAILY 08/06/19 [History] Oxybutynin 5 mg PO TID 08/06/19 [History] lisinopriL [Zestril] 10 mg PO DAILY 08/06/19 [History] Simvastatin [Zocor] 10 mg PO BEDTIME 09/01/19 [History] Acetaminophen [Tylenol] 650 mg PO Q6H PRN #20 tablet 11/16/19 [Rx] Omeprazole 20 mg PO ACBREAKFAST #30 cap.sr 11/16/19 [Rx] Sucralfate [Carafate] 1 gm PO QIDACANDBED #120 tablet 11/16/19 [Rx] Hydrocodone/Acetaminophen [[place] 7.5-325 Tablet] 1 each PO Q4HR PRN #14 tablet 02/18/20 [Rx] Albuterol Sulfate [Albuterol Sulfate Hfa] 8.5 gm IH ASDIRECTED PRN 03/01/20 [History] Budesonide/Formoterol [Symbicort 160-4.5 MCG] 1 puff INH BID PRN 03/01/20 [History] LORazepam [Lorazepam] 0.5 mg PO BID PRN 03/01/20 [History] Ondansetron [Zofran] 4 mg PO Q6H PRN 03/01/20 [History] Verapamil [Calan] 40 mg PO TID 03/01/20 [History] Azithromycin 250 mg PO DAILY #5 tablet 03/02/20 [Rx] Fluticasone Propionate [Flovent] 1 puff IH BID 03/02/20 [History] predniSONE [Prednisone] 40 mg PO DAILY #5 tablet 03/02/20 [Rx] Past Medical History - Past Health History Medical/Surgical History: Denies Medical/Surgical History HEENT History: Reports: None Other HEENT History: wears glasses Cardiovascular History: Reports: Hypertension Respiratory History: Reports: COPD, Other (See Below) Other Respiratory History: Home O2 @ 2LPM Gastrointestinal History: Reports: Diverticulosis Genitourinary History: Reports: Other (See Below) Other Genitourinary History: kidney stones [employer] History: Reports: Musculoskeletal History: Reports: None Neurological History: Reports: None Psychiatric History: Reports: Addiction, Anxiety, Depression Endocrine/Metabolic History: Reports: None 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 Safety Deposit: None Hematologic History: Reports: None Immunologic History: Reports: None Oncologic (Cancer) History: Reports: None Dermatologic History: Reports: None - Infectious Disease History Infectious Disease History: Reports: Hepatitis C Other Infectious Disease History: unsure of which kind of hepatitis - Past Surgical History Head Surgeries/Procedures: Reports: None HEENT Surgical History: Reports: None Cardiovascular Surgical History: Reports: None Respiratory Surgical History: Reports: None GI Surgical History: Reports: Appendectomy Female Surgical History: Reports: None Endocrine Surgical History: Reports: None Neurological Surgical History: Reports: None Musculoskeletal Surgical History: Reports: Other (See Below) Other Musculoskeletal Surgeries/Procedures:: rt shoulder surg Oncologic Surgical History: Reports: None Dermatological Surgical History: Reports: None Social & Family History - Family History Family Medical History: Noncontributory Respiratory: Reports: Asthma, COPD : Reports: Renal Disease/Insufficiency Psychiatric: Reports: Anxiety, Depression Endocrine/Metabolic: Reports: Diabetes, type II Oncologic: Reports: Hodgkin's Lymphoma - Caffeine Use Caffeine Use: Reports: None Caffeine Use Comment: 5 cups avg per day - Living Situation & Occupation Living situation: Reports: Single ED ROS GENERAL - Review of Systems Review Of Systems: Comprehensive ROS is negative, except as noted in HPI. ED EXAM, GENERAL - Physical Exam Exam: See Below Exam Limited By: Respiratory Distress General Appearance: Alert, Moderate Distress Nose: Normal Inspection Throat/Mouth: Normal Inspection, Normal Voice, No Airway Compromise Head: Atraumatic, Normocephalic Neck: Supple Respiratory/Chest: Respiratory Distress, Decreased Breath Sounds, Rhonchi, Wheezing, Accessory Muscle Use, Retractions, Prolonged Expiration Cardiovascular: Normal Peripheral Pulses, Regular Rate, Rhythm, No Edema GI/Abdominal: Soft, Non-Tender Extremities: Normal Inspection Neurological: Alert Psychiatric: Anxious Skin Exam: Warm, Dry, Intact Course - Vital Signs Last Recorded V/S: Last Vital Signs Temp 97.1 F 03/10/20 13:01 Pulse 100 03/10/20 13:32 Resp 18 03/10/20 13:32 BP 94/51 L 03/10/20 13:01 Pulse Ox 100 03/10/20 13:32 - Orders/Labs/Meds Orders: Active Orders 24 hr Category Date Time Status Patient Status [ADT] Routine ADT 03/10/20 15:11 Active BIPAP Adult [RT BiPAP/CPAP] [RC] ASDIRECTED Care 03/10/20 13:07 Active Cardiac Monitoring [RC] . DIRECTED Care 03/10/20 13:05 Active EKG Documentation Completion [RC] STAT Care 03/10/20 13:05 Active Pulse Oximetry [RC] ASDIRECTED Care 03/10/20 13:05 Active Sodium Chloride 0.9% [Saline Flush] Med 03/10/20 13:05 Active 10 ml FLUSH ASDIRECTED PRN Sodium Chloride 0.9% [Saline Flush] Med 03/10/20 13:05 Active 2.5 ml FLUSH ASDIRECTED PRN Saline Lock Insert [OM.PC] Stat Oth 03/10/20 13:05 Ordered Medication Orders Sodium Chloride (Saline Flush) 10 ml FLUSH ASDIRECTED PRN PRN Reason: Keep Vein Open Last Admin: 03/10/20 13:20 Dose: 10 ml Documented by: [id number] Sodium Chloride (Saline Flush) 2.5 ml FLUSH ASDIRECTED PRN PRN Reason: Keep Vein Open Last Admin: 03/10/20 13:20 Dose: 2.5 ml Documented by: [id number] Labs: Laboratory Tests 03/10/20 03/10/20 03/10/20 Range/Units 13:27 13:27 13:27 WBC 17.83 H (4.0-11.0) K/uL RBC 4.36 (4.30-5.90) M/uL Hgb 11.6 L (12.0-16.0) g/dL Hct 36.0 (36.0-46.0) % MCV 82.6 (80.0-98.0) fL MCH 26.6 L (27.0-32.0) pg MCHC 32.2 (31.0-37.0) g/dL RDW Std Deviation 45.7 (28.0-62.0) fl RDW Coeff of Jamil 15 (11.0-15.0) % Plt Count 410 H (150-400) K/uL MPV 8.90 (7.40-12.00) fL Neut % (Auto) 66.1 (48.0-80.0) % Lymph % (Auto) 23.9 (16.0-40.0) % [place] % (Auto) 8.6 (0.0-15.0) % Eos % (Auto) 1.3 (0.0-7.0) % Baso % (Auto) 0.1 (0.0-1.5) % Neut # (Auto) 11.8 H (1.4-5.7) K/uL Lymph # (Auto) 4.3 H (0.6-2.4) K/uL [place] # (Auto) 1.5 H (0.0-0.8) K/uL Eos # (Auto) 0.2 (0.0-0.7) K/uL Baso # (Auto) 0.0 (0.0-0.1) K/uL Nucleated RBC % 0.0 /100WBC Nucleated RBCs # 0 K/uL INR APTT (18.6-31.3) SEC D-Dimer, Quantitative (0.0-0.50) mg/L FEU ABG pH (7.35-7.45) ABG pCO2 (35-45) mmHG ABG pO2 (75-100) mmHG ABG HCO3 (22-26) mEq/L ABG Total CO2 ABG Base Excess (-2.0-2.0) Lactate 0.7 (0.20-2.00) mmol/L Sodium 136 (136-145) mmol/L Potassium 4.1 (3.5-5.1) mmol/L Chloride 100 (98-107) mmol/L Carbon Dioxide 21.2 (21.0-32.0) mmol/L BUN 40 H (7.0-18.0) mg/dL Creatinine 1.4 H (0.6-1.0) mg/dL Est Cr Clr Drug Dosing 38.29 mL/min Estimated GFR (MDRD) 38.0 ml/min Glucose 78 (74-106) mg/dL Calcium 9.2 (8.5-10.1) mg/dL Magnesium 2.0 (1.8-2.4) mg/dL Total Bilirubin 0.7 (0.2-1.0) mg/dL AST 18 (15-37) IU/L ALT 26 (14-63) IU/L Alkaline Phosphatase 93 (46-116) U/L Troponin I < 0.050 (0.000-0.056) ng/mL C-Reactive Protein 13.00 H (0.00-0.90) mg/dL B-Natriuretic Peptide (<100) PG/ML Total Protein 8.2 (6.4-8.2) g/dL Albumin 4.0 (3.4-5.0) g/dL Globulin 4.2 H (2.6-4.0) g/dL Albumin/Globulin Ratio 1.0 (0.9-1.6) SARS-CoV-2 RNA (ONOFRE) (NEGATIVE) 03/10/20 03/10/20 03/10/20 Range/Units 13:27 13:27 13:55 WBC (4.0-11.0) K/uL RBC (4.30-5.90) M/uL Hgb (12.0-16.0) g/dL Hct (36.0-46.0) % MCV (80.0-98.0) fL MCH (27.0-32.0) pg MCHC (31.0-37.0) g/dL RDW Std Deviation (28.0-62.0) fl RDW Coeff of Jamil (11.0-15.0) % Plt Count (150-400) K/uL MPV (7.40-12.00) fL Neut % (Auto) (48.0-80.0) % Lymph % (Auto) (16.0-40.0) % [place] % (Auto) (0.0-15.0) % Eos % (Auto) (0.0-7.0) % Baso % (Auto) (0.0-1.5) % Neut # (Auto) (1.4-5.7) K/uL Lymph # (Auto) (0.6-2.4) K/uL [place] # (Auto) (0.0-0.8) K/uL Eos # (Auto) (0.0-0.7) K/uL Baso # (Auto) (0.0-0.1) K/uL Nucleated RBC % /100WBC Nucleated RBCs # K/uL INR 1.06 APTT 24.7 (18.6-31.3) SEC D-Dimer, Quantitative 0.41 (0.0-0.50) mg/L FEU ABG pH 7.306 L (7.35-7.45) ABG pCO2 35 (35-45) mmHG ABG pO2 111 H (75-100) mmHG ABG HCO3 18 L (22-26) mEq/L ABG Total CO2 16.7 ABG Base Excess -7.9 L (-2.0-2.0) Lactate (0.20-2.00) mmol/L Sodium (136-145) mmol/L Potassium (3.5-5.1) mmol/L Chloride (98-107) mmol/L Carbon Dioxide (21.0-32.0) mmol/L BUN (7.0-18.0) mg/dL Creatinine (0.6-1.0) mg/dL Est Cr Clr Drug Dosing mL/min Estimated GFR (MDRD) ml/min Glucose (74-106) mg/dL Calcium (8.5-10.1) mg/dL Magnesium (1.8-2.4) mg/dL Total Bilirubin (0.2-1.0) mg/dL AST (15-37) IU/L ALT (14-63) IU/L Alkaline Phosphatase (46-116) U/L Troponin I (0.000-0.056) ng/mL C-Reactive Protein (0.00-0.90) mg/dL B-Natriuretic Peptide 53 (<100) PG/ML Total Protein (6.4-8.2) g/dL Albumin (3.4-5.0) g/dL Globulin (2.6-4.0) g/dL Albumin/Globulin Ratio (0.9-1.6) SARS-CoV-2 RNA (ONOFRE) (NEGATIVE) 03/10/20 Range/Units 14:40 WBC (4.0-11.0) K/uL RBC (4.30-5.90) M/uL Hgb (12.0-16.0) g/dL Hct (36.0-46.0) % MCV (80.0-98.0) fL MCH (27.0-32.0) pg MCHC (31.0-37.0) g/dL RDW Std Deviation (28.0-62.0) fl RDW Coeff of Jamil (11.0-15.0) % Plt Count (150-400) K/uL MPV (7.40-12.00) fL Neut % (Auto) (48.0-80.0) % Lymph % (Auto) (16.0-40.0) % [place] % (Auto) (0.0-15.0) % Eos % (Auto) (0.0-7.0) % Baso % (Auto) (0.0-1.5) % Neut # (Auto) (1.4-5.7) K/uL Lymph # (Auto) (0.6-2.4) K/uL [place] # (Auto) (0.0-0.8) K/uL Eos # (Auto) (0.0-0.7) K/uL Baso # (Auto) (0.0-0.1) K/uL Nucleated RBC % /100WBC Nucleated RBCs # K/uL INR APTT (18.6-31.3) SEC D-Dimer, Quantitative (0.0-0.50) mg/L FEU ABG pH (7.35-7.45) ABG pCO2 (35-45) mmHG ABG pO2 (75-100) mmHG ABG HCO3 (22-26) mEq/L ABG Total CO2 ABG Base Excess (-2.0-2.0) Lactate (0.20-2.00) mmol/L Sodium (136-145) mmol/L Potassium (3.5-5.1) mmol/L Chloride (98-107) mmol/L Carbon Dioxide (21.0-32.0) mmol/L BUN (7.0-18.0) mg/dL Creatinine (0.6-1.0) mg/dL Est Cr Clr Drug Dosing mL/min Estimated GFR (MDRD) ml/min Glucose (74-106) mg/dL Calcium (8.5-10.1) mg/dL Magnesium (1.8-2.4) mg/dL Total Bilirubin (0.2-1.0) mg/dL AST (15-37) IU/L ALT (14-63) IU/L Alkaline Phosphatase (46-116) U/L Troponin I (0.000-0.056) ng/mL C-Reactive Protein (0.00-0.90) mg/dL B-Natriuretic Peptide (<100) PG/ML Total Protein (6.4-8.2) g/dL Albumin (3.4-5.0) g/dL Globulin (2.6-4.0) g/dL Albumin/Globulin Ratio (0.9-1.6) SARS-CoV-2 RNA (ONOFRE) NEGATIVE (NEGATIVE) Meds: Medications Generic Name Dose Route Start Last Admin Trade Name Frelillie PRN Reason Stop Dose Admin Sodium Chloride 10 ml 03/10/20 13:03/10/20 13:20 Saline Flush FLUSH 10 ml ASDIRECTED PRN Administration Keep Vein Open Sodium Chloride 2.5 ml 03/10/20 13:05 03/10/20 13:20 Saline Flush FLUSH 2.5 ml ASDIRECTED PRN Administration Keep Vein Open Discontinued Medications Generic Name Dose Route Start Last Admin Trade Name Freq PRN Reason Stop Dose Admin Albuterol/Ipratropium 3 ml 03/10/20 13:03/10/20 13:19 Duoneb 3.0-0.5 Mg/3 Ml NEB 03/10/20 13:06 3 ml ONETIME ONE Administration Sodium Chloride 1,000 mls @ 999 mls/hr 03/10/20 13:05 03/10/20 13:20 Normal Saline IV 03/10/20 14:05 999 mls/hr .Bolus ONE Administration Magnesium Sulfate 2 gm/ Premix 50 mls @ 50 mls/hr 03/10/20 13:07 03/10/20 13:19 IV 03/10/20 14:06 50 mls/hr ONETIME ONE Administration Lorazepam 0.5 mg 03/10/20 13:09 03/10/20 13:19 Ativan IVPUSH 03/10/20 13:10 0.5 mg ONETIME ONE Administration Lorazepam 0.5 mg 03/10/20 14:37 03/10/20 14:44 Ativan IVPUSH 03/10/20 14:38 0.5 mg ONETIME ONE Administration Methylprednisolone Sodium Succinate 125 mg 03/10/20 13:05 03/10/20 13:19 Solu-Medrol IVPUSH 03/10/20 13:06 125 mg ONETIME ONE Administration Terbutaline Sulfate 0.25 mg 03/10/20 13:07 03/10/20 14:20 Brethine SUBCUT 03/10/20 13:08 0.25 mg ONETIME ONE Administration - Re-Assessments/Exams Free Text/Narrative Re-Assessment/Exam: 03/10/20 13:16 Will get labs, will give solumedrol/mag/terbutaline, will give ativan, will trial BiPAP 03/10/20 13:52 Patient is tolerating BiPAP well. She feels better. Her labs are remarkable for leukocytosis but she is on chronic prednisone. 03/10/20 14:38 Patient is no longer tolerating BiPAP 2/2 anxiety; she took off her mask and would like to try without it. Will give another dose of ativan and trial on NRB 03/10/20 15:12 Dr. King agrees to admit to obs service Departure - Departure Time of Disposition: 15:12 Disposition: Admitted As Inpatient 67 Condition: Good Clinical Impression: COPD exacerbation - Discharge Information Referrals: Vu Stern MD [Primary Care Provider] - Forms: ED Department Discharge Critical Care Note - Critical Care Note Total Time (mins): 40 Comments: Due to a high probability of life threatening deterioration, the patient required my highest level of preparedness to intervene emergently. I spent roughly 40min with patient addressing her respiratory distress. Sepsis Event Note (ED) - Evaluation Sepsis Screening Result: Possible Sepsis Risk - Focused Exam Vital Signs: Vital Signs Temp Pulse Resp BP Pulse Ox 03/10/20 13:32 100 18 100 03/10/20 13:01 97.1 F 93 26 H 94/51 L 85 L - My Orders Last 24 Hours: My Active Orders 03/10/20 13:05 Cardiac Monitoring [RC] . DIRECTED EKG Documentation Completion [RC] STAT Pulse Oximetry [RC] ASDIRECTED Sodium Chloride 0.9% [Saline Flush] 10 ml FLUSH ASDIRECTED PRN Sodium Chloride 0.9% [Saline Flush] 2.5 ml FLUSH ASDIRECTED PRN Saline Lock Insert [OM.PC] Stat 03/10/20 13:07 BIPAP Adult [RT BiPAP/CPAP] [RC] ASDIRECTED 03/10/20 15:11 Patient Status [ADT] Routine - Assessment/Plan Last 24 Hours: My Active Orders 03/10/20 13:05 Cardiac Monitoring [RC] . DIRECTED EKG Documentation Completion [RC] STAT Pulse Oximetry [RC] ASDIRECTED Sodium Chloride 0.9% [Saline Flush] 10 ml FLUSH ASDIRECTED PRN Sodium Chloride 0.9% [Saline Flush] 2.5 ml FLUSH ASDIRECTED PRN Saline Lock Insert [OM.PC] Stat 03/10/20 13:07 BIPAP Adult [RT BiPAP/CPAP] [RC] ASDIRECTED 03/10/20 15:11 Patient Status [ADT] Routine
[2020-03-10] MEDS ORDERED: LORazepam 2 MG/ML SDV IVPUSH ONE ×2 (13:09→14:37)
--- NOTE | 2020-03-10 14:02 | CR ---
Indication: Shortness of breath Technique: Chest 1 view Comparison: February 29, 2020 Findings/Impression: Stable cardiomediastinal silhouette. There is patchy opacity representing atelectasis or infiltrate in the right perihilar region. There is also some linear atelectasis in this region. Consider chest CT for further evaluation. The lungs are hyperexpanded. No effusion or pneumothorax. Osseous structures are intact. Dictated by Luz Elena Arriola MD @ Mar 10 2020 1:59PM Signed by Dr. Luz Elena Arriola @ Mar 10 2020 2:01PM
[2020-03-10 14:03] LABS: BLOOD UREA NITROGEN,BUN 40 mg/dL (7.0-18.0); CARBON DIOXIDE,CO2 21.2 mmol/L (21.0-32.0); CHLORIDE,CL 100 mmol/L (98-107); GLUCOSE RANDOM 78 mg/dL (74-106); POTASSIUM,K 4.1 mmol/L (3.5-5.1); SODIUM,NA 136 mmol/L (136-145)
[2020-03-10] MEDS: Albuterol/Ipratropium 3.0-0.5 MG/3 ML Neb Soln NEB SCH (17:46)
[2020-03-10] MEDS: Insulin Aspart 100 Units/ML 3 ML Pen SUBCUT SCH (18:49)
[2020-03-10] MEDS ORDERED: LORazepam 0.5 MG Tab PO PRN (20:40)
[2020-03-10] MEDS ORDERED: Ondansetron 4 MG Tab PO PRN (20:40)
[2020-03-10] MEDS ORDERED: Albuterol 6.7 GM Inhaler INH PRN (20:40)
--- NOTE | 2020-03-10 20:49 | PCM.HP.2 ---
H&P History of Present Illness - General Date of Service: 03/10/20 Admit Problem/Dx: Admission Diagnosis/Problem Admission Diagnosis/Problem COPD, Severe chronic obstructive pulmonary disease - History of Present Illness Initial Comments - Free Text/Narative: 64 year old female with pmh of oxygen dependent COPD, HTN, Hep C, anxiety who was admitted ten days ago for COPD exacerbation. She was discharged home on prednisone and azithormycin. She reported once the steroid and antibiotic were finished the next day she developed shortness of breath, wheezing and copious amount of mucus production with her cough. She report she has not been able to eat anything. In the ED she was placed on BIPAP breifly but was unable to tolerate it for long. She is now satting 95% on 2 liters. mouth Pain Score (Numeric/FACES): 9 - Related Data Allergies/Adverse Reactions: Allergies Allergy/AdvReac Type Severity Reaction Status Date / Time No Known Allergies Allergy Verified 03/11/20 01:10 Home Medications: Home Meds Venlafaxine HCl [Venlafaxine ER] 150 mg PO BID 09/22/18 [History] cloNIDine [Catapres] 0.1 mg PO BID 09/22/18 [History] Umeclidinium [facility] [Incruse Ellipta*] 1 puff IH DAILY 05/19/19 [History] Escitalopram [Lexapro] 20 mg PO DAILY 08/06/19 [History] Oxybutynin 5 mg PO TID 08/06/19 [History] lisinopriL [Zestril] 10 mg PO DAILY 08/06/19 [History] Simvastatin [Zocor] 10 mg PO BEDTIME 09/01/19 [History] Acetaminophen [Tylenol] 650 mg PO Q6H PRN #20 tablet 11/16/19 [Rx] Sucralfate [Carafate] 1 gm PO QIDACANDBED #120 tablet 11/16/19 [Rx] Hydrocodone/Acetaminophen [Causey 7.5-325 Tablet] 1 each PO Q4HR PRN #14 tablet 02/18/20 [Rx] Albuterol Sulfate [Albuterol Sulfate Hfa] 2 puff IH BID 03/01/20 [History] Budesonide/Formoterol [Symbicort 160-4.5 MCG] 1 puff INH BID 03/01/20 [History] LORazepam [Lorazepam] 0.5 mg PO BID PRN 03/01/20 [History] Ondansetron [Zofran] 4 mg PO Q6H PRN 03/01/20 [History] Verapamil [Calan] 40 mg PO TID 03/01/20 [History] predniSONE [Prednisone] 40 mg PO DAILY #5 tablet 03/02/20 [Rx] Fluticasone Propionate 03/11/20 [History] Past Medical History - Past Health History Medical/Surgical History: Denies Medical/Surgical History HEENT History: Reports: None Other HEENT History: wears glasses Cardiovascular History: Reports: Hypertension Respiratory History: Reports: COPD, Other (See Below) Other Respiratory History: Home O2 @ 2LPM Gastrointestinal History: Reports: Diverticulosis Genitourinary History: Reports: Other (See Below) Other Genitourinary History: kidney stones 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 History: Reports: Musculoskeletal History: Reports: None Neurological History: Reports: None Psychiatric History: Reports: Addiction, Anxiety, Depression Endocrine/Metabolic History: Reports: None Insulin Pump Model and Us Administrative Law Judge: None Hematologic History: Reports: None Immunologic History: Reports: None Oncologic (Cancer) History: Reports: None Dermatologic History: Reports: None - Infectious Disease History Infectious Disease History: Reports: Hepatitis C Other Infectious Disease History: unsure of which kind of hepatitis - Past Surgical History Head Surgeries/Procedures: Reports: None HEENT Surgical History: Reports: None Cardiovascular Surgical History: Reports: None Respiratory Surgical History: Reports: None GI Surgical History: Reports: Appendectomy Female Surgical History: Reports: None Endocrine Surgical History: Reports: None Neurological Surgical History: Reports: None Musculoskeletal Surgical History: Reports: Other (See Below) Other Musculoskeletal Surgeries/Procedures:: rt shoulder surg Oncologic Surgical History: Reports: None Dermatological Surgical History: Reports: None Social & Family History - Family History Family Medical History: Noncontributory Respiratory: Reports: Asthma, COPD : Reports: Renal Disease/Insufficiency Psychiatric: Reports: Anxiety, Depression Endocrine/Metabolic: Reports: Diabetes, type II Oncologic: Reports: Hodgkin's Lymphoma - Tobacco Use Smoking Status *Q: Former Smoker Years of Tobacco use: 14 Packs/Tins Daily: 1 Used Tobacco, but Quit: Yes Month/Year Tobacco Last Used: September 2019 Tobacco Use Comment: Stopped smoking 5-6 months ago - Caffeine Use Caffeine Use: Reports: Coffee, Soda Caffeine Use Comment: 4-5 cups a day - Alcohol Use Days Per Week of Alcohol Use: 2 Number of Drinks Per Day: 2 Total Drinks Per Week: 4 Date of Last Drink: 03/08/20 - Recreational Drug Use Recreational Drug Use: No - Living Situation & Occupation Living situation: Reports: Single H&P Review of Systems - Review of Systems: Review Of Systems: Comprehensive ROS is negative, except as noted in HPI. Exam - Exam Exam: See Below - Vital Signs Vital Signs: Last Vital Signs Temp 37.0 C 03/10/20 16:10 Pulse 79 03/10/20 16:10 Resp 18 03/10/20 16:10 BP 118/72 03/10/20 16:10 Pulse Ox 95 03/10/20 18:00 Weight: 56.654 kg - Exam General: Alert, Oriented. No: Severe Distress HEENT: Mucosa Moist & [place] Lungs: Normal Respiratory Effort, Decreased Breath Sounds, Rhonchi, Wheezing Cardiovascular: Regular Rate, Regular Rhythm GI/Abdominal Exam: Normal Bowel Sounds, Soft, Non-Tender Extremities: Normal Inspection, Non-Tender, No Pedal Edema Skin: Warm, Dry, Intact Neurological: No: Focal Deficit - Patient Data Lab Results Last 24 hrs: Laboratory Results - last 24 hr 03/10/20 03/10/20 03/10/20 Range/Units 13:27 13:27 13:27 WBC 17.83 H (4.0-11.0) K/uL RBC 4.36 (4.30-5.90) M/uL Hgb 11.6 L (12.0-16.0) g/dL Hct 36.0 (36.0-46.0) % MCV 82.6 (80.0-98.0) fL MCH 26.6 L (27.0-32.0) pg MCHC 32.2 (31.0-37.0) g/dL RDW Std Deviation 45.7 (28.0-62.0) fl RDW Coeff of Jamil 15 (11.0-15.0) % Plt Count 410 H (150-400) K/uL MPV 8.90 (7.40-12.00) fL Neut % (Auto) 66.1 (48.0-80.0) % Lymph % (Auto) 23.9 (16.0-40.0) % [place] % (Auto) 8.6 (0.0-15.0) % Eos % (Auto) 1.3 (0.0-7.0) % Baso % (Auto) 0.1 (0.0-1.5) % Neut # (Auto) 11.8 H (1.4-5.7) K/uL Lymph # (Auto) 4.3 H (0.6-2.4) K/uL [place] # (Auto) 1.5 H (0.0-0.8) K/uL Eos # (Auto) 0.2 (0.0-0.7) K/uL Baso # (Auto) 0.0 (0.0-0.1) K/uL Nucleated RBC % 0.0 /100WBC Nucleated RBCs # 0 K/uL INR APTT (18.6-31.3) SEC D-Dimer, Quantitative (0.0-0.50) mg/L FEU ABG pH (7.35-7.45) ABG pCO2 (35-45) mmHG ABG pO2 (75-100) mmHG ABG HCO3 (22-26) mEq/L ABG Total CO2 ABG Base Excess (-2.0-2.0) Lactate 0.7 (0.20-2.00) mmol/L Sodium 136 (136-145) mmol/L Potassium 4.1 (3.5-5.1) mmol/L Chloride 100 (98-107) mmol/L Carbon Dioxide 21.2 (21.0-32.0) mmol/L BUN 40 H (7.0-18.0) mg/dL Creatinine 1.4 H (0.6-1.0) mg/dL Est Cr Clr Drug Dosing 38.29 mL/min Estimated GFR (MDRD) 38.0 ml/min Glucose 78 (74-106) mg/dL POC Glucose (60-110) mg/dL Calcium 9.2 (8.5-10.1) mg/dL Magnesium 2.0 (1.8-2.4) mg/dL Total Bilirubin 0.7 (0.2-1.0) mg/dL AST 18 (15-37) IU/L ALT 26 (14-63) IU/L Alkaline Phosphatase 93 (46-116) U/L Troponin I < 0.050 (0.000-0.056) ng/mL C-Reactive Protein 13.00 H (0.00-0.90) mg/dL B-Natriuretic Peptide (<100) PG/ML Total Protein 8.2 (6.4-8.2) g/dL Albumin 4.0 (3.4-5.0) g/dL Globulin 4.2 H (2.6-4.0) g/dL Albumin/Globulin Ratio 1.0 (0.9-1.6) Urine Color Urine Appearance Urine pH (5.0-8.0) Ur Specific [place] (1.001-1.035) Urine Protein (NEGATIVE) mg/dL Urine Glucose (UA) (NEGATIVE) mg/dL Urine Ketones (NEGATIVE) mg/dL Urine Occult Blood (NEGATIVE) Urine Nitrite (NEGATIVE) Urine Bilirubin (NEGATIVE) Urine Urobilinogen (<2.0) EU/dL Ur Leukocyte Esterase (NEGATIVE) Urine Opiates Screen (NEGATIVE) Ur Oxycodone Screen (NEGATIVE) Urine Methadone Screen (NEGATIVE) Ur Barbiturates Screen (NEGATIVE) Ur Phencyclidine Scrn (NEGATIVE) Ur Amphetamine Screen (NEGATIVE) U Methamphetamines Scrn (NEGATIVE) U Benzodiazepines Scrn (NEGATIVE) U Cocaine Metab Screen (NEGATIVE) U Marijuana (THC) Screen (NEGATIVE) SARS-CoV-2 RNA (ONOFRE) (NEGATIVE) 03/10/20 03/10/20 03/10/20 Range/Units 13:27 13:27 13:55 WBC (4.0-11.0) K/uL RBC (4.30-5.90) M/uL Hgb (12.0-16.0) g/dL Hct (36.0-46.0) % MCV (80.0-98.0) fL MCH (27.0-32.0) pg MCHC (31.0-37.0) g/dL RDW Std Deviation (28.0-62.0) fl RDW Coeff of Jamil (11.0-15.0) % Plt Count (150-400) K/uL MPV (7.40-12.00) fL Neut % (Auto) (48.0-80.0) % Lymph % (Auto) (16.0-40.0) % [place] % (Auto) (0.0-15.0) % Eos % (Auto) (0.0-7.0) % Baso % (Auto) (0.0-1.5) % Neut # (Auto) (1.4-5.7) K/uL Lymph # (Auto) (0.6-2.4) K/uL [place] # (Auto) (0.0-0.8) K/uL Eos # (Auto) (0.0-0.7) K/uL Baso # (Auto) (0.0-0.1) K/uL Nucleated RBC % /100WBC Nucleated RBCs # K/uL INR 1.06 APTT 24.7 (18.6-31.3) SEC D-Dimer, Quantitative 0.41 (0.0-0.50) mg/L FEU ABG pH 7.306 L (7.35-7.45) ABG pCO2 35 (35-45) mmHG ABG pO2 111 H (75-100) mmHG ABG HCO3 18 L (22-26) mEq/L ABG Total CO2 16.7 ABG Base Excess -7.9 L (-2.0-2.0) Lactate (0.20-2.00) mmol/L Sodium (136-145) mmol/L Potassium (3.5-5.1) mmol/L Chloride (98-107) mmol/L Carbon Dioxide (21.0-32.0) mmol/L BUN (7.0-18.0) mg/dL Creatinine (0.6-1.0) mg/dL Est Cr Clr Drug Dosing mL/min Estimated GFR (MDRD) ml/min Glucose (74-106) mg/dL POC Glucose (60-110) mg/dL Calcium (8.5-10.1) mg/dL Magnesium (1.8-2.4) mg/dL Total Bilirubin (0.2-1.0) mg/dL AST (15-37) IU/L ALT (14-63) IU/L Alkaline Phosphatase (46-116) U/L Troponin I (0.000-0.056) ng/mL C-Reactive Protein (0.00-0.90) mg/dL B-Natriuretic Peptide 53 (<100) PG/ML Total Protein (6.4-8.2) g/dL Albumin (3.4-5.0) g/dL Globulin (2.6-4.0) g/dL Albumin/Globulin Ratio (0.9-1.6) Urine Color Urine Appearance Urine pH (5.0-8.0) Ur Specific [place] (1.001-1.035) Urine Protein (NEGATIVE) mg/dL Urine Glucose (UA) (NEGATIVE) mg/dL Urine Ketones (NEGATIVE) mg/dL Urine Occult Blood (NEGATIVE) Urine Nitrite (NEGATIVE) Urine Bilirubin (NEGATIVE) Urine Urobilinogen (<2.0) EU/dL Ur Leukocyte Esterase (NEGATIVE) Urine Opiates Screen (NEGATIVE) Ur Oxycodone Screen (NEGATIVE) Urine Methadone Screen (NEGATIVE) Ur Barbiturates Screen (NEGATIVE) Ur Phencyclidine Scrn (NEGATIVE) Ur Amphetamine Screen (NEGATIVE) U Methamphetamines Scrn (NEGATIVE) U Benzodiazepines Scrn (NEGATIVE) U Cocaine Metab Screen (NEGATIVE) U Marijuana (THC) Screen (NEGATIVE) SARS-CoV-2 RNA (ONOFRE) (NEGATIVE) 03/10/20 03/10/20 03/10/20 Range/Units 14:40 16:20 16:20 WBC (4.0-11.0) K/uL RBC (4.30-5.90) M/uL Hgb (12.0-16.0) g/dL Hct (36.0-46.0) % MCV (80.0-98.0) fL MCH (27.0-32.0) pg MCHC (31.0-37.0) g/dL RDW Std Deviation (28.0-62.0) fl RDW Coeff of Jamil (11.0-15.0) % Plt Count (150-400) K/uL MPV (7.40-12.00) fL Neut % (Auto) (48.0-80.0) % Lymph % (Auto) (16.0-40.0) % [place] % (Auto) (0.0-15.0) % Eos % (Auto) (0.0-7.0) % Baso % (Auto) (0.0-1.5) % Neut # (Auto) (1.4-5.7) K/uL Lymph # (Auto) (0.6-2.4) K/uL [place] # (Auto) (0.0-0.8) K/uL Eos # (Auto) (0.0-0.7) K/uL Baso # (Auto) (0.0-0.1) K/uL Nucleated RBC % /100WBC Nucleated RBCs # K/uL INR APTT (18.6-31.3) SEC D-Dimer, Quantitative (0.0-0.50) mg/L FEU ABG pH (7.35-7.45) ABG pCO2 (35-45) mmHG ABG pO2 (75-100) mmHG ABG HCO3 (22-26) mEq/L ABG Total CO2 ABG Base Excess (-2.0-2.0) Lactate (0.20-2.00) mmol/L Sodium (136-145) mmol/L Potassium (3.5-5.1) mmol/L Chloride (98-107) mmol/L Carbon Dioxide (21.0-32.0) mmol/L BUN (7.0-18.0) mg/dL Creatinine (0.6-1.0) mg/dL Est Cr Clr Drug Dosing mL/min Estimated GFR (MDRD) ml/min Glucose (74-106) mg/dL POC Glucose (60-110) mg/dL Calcium (8.5-10.1) mg/dL Magnesium (1.8-2.4) mg/dL Total Bilirubin (0.2-1.0) mg/dL AST (15-37) IU/L ALT (14-63) IU/L Alkaline Phosphatase (46-116) U/L Troponin I (0.000-0.056) ng/mL C-Reactive Protein (0.00-0.90) mg/dL B-Natriuretic Peptide (<100) PG/ML Total Protein (6.4-8.2) g/dL Albumin (3.4-5.0) g/dL Globulin (2.6-4.0) g/dL Albumin/Globulin Ratio (0.9-1.6) Urine Color YELLOW Urine Appearance CLEAR Urine pH 5.5 (5.0-8.0) Ur Specific [place] 1.020 (1.001-1.035) Urine Protein NEGATIVE (NEGATIVE) mg/dL Urine Glucose (UA) NEGATIVE (NEGATIVE) mg/dL Urine Ketones NEGATIVE (NEGATIVE) mg/dL Urine Occult Blood NEGATIVE (NEGATIVE) Urine Nitrite NEGATIVE (NEGATIVE) Urine Bilirubin NEGATIVE (NEGATIVE) Urine Urobilinogen 0.2 (<2.0) EU/dL Ur Leukocyte Esterase NEGATIVE (NEGATIVE) Urine Opiates Screen NEGATIVE (NEGATIVE) Ur Oxycodone Screen NEGATIVE (NEGATIVE) Urine Methadone Screen NEGATIVE (NEGATIVE) Ur Barbiturates Screen NEGATIVE (NEGATIVE) Ur Phencyclidine Scrn NEGATIVE (NEGATIVE) Ur Amphetamine Screen POSITIVE (NEGATIVE) U Methamphetamines Scrn POSITIVE (NEGATIVE) U Benzodiazepines Scrn NEGATIVE (NEGATIVE) U Cocaine Metab Screen NEGATIVE (NEGATIVE) U Marijuana (THC) Screen NEGATIVE (NEGATIVE) SARS-CoV-2 RNA (ONOFRE) NEGATIVE (NEGATIVE) 03/10/20 Range/Units 18:24 WBC (4.0-11.0) K/uL RBC (4.30-5.90) M/uL Hgb (12.0-16.0) g/dL Hct (36.0-46.0) % MCV (80.0-98.0) fL MCH (27.0-32.0) pg MCHC (31.0-37.0) g/dL RDW Std Deviation (28.0-62.0) fl RDW Coeff of Jamil (11.0-15.0) % Plt Count (150-400) K/uL MPV (7.40-12.00) fL Neut % (Auto) (48.0-80.0) % Lymph % (Auto) (16.0-40.0) % [place] % (Auto) (0.0-15.0) % Eos % (Auto) (0.0-7.0) % Baso % (Auto) (0.0-1.5) % Neut # (Auto) (1.4-5.7) K/uL Lymph # (Auto) (0.6-2.4) K/uL [place] # (Auto) (0.0-0.8) K/uL Eos # (Auto) (0.0-0.7) K/uL Baso # (Auto) (0.0-0.1) K/uL Nucleated RBC % /100WBC Nucleated RBCs # K/uL INR APTT (18.6-31.3) SEC D-Dimer, Quantitative (0.0-0.50) mg/L FEU ABG pH (7.35-7.45) ABG pCO2 (35-45) mmHG ABG pO2 (75-100) mmHG ABG HCO3 (22-26) mEq/L ABG Total CO2 ABG Base Excess (-2.0-2.0) Lactate (0.20-2.00) mmol/L Sodium (136-145) mmol/L Potassium (3.5-5.1) mmol/L Chloride (98-107) mmol/L Carbon Dioxide (21.0-32.0) mmol/L BUN (7.0-18.0) mg/dL Creatinine (0.6-1.0) mg/dL Est Cr Clr Drug Dosing mL/min Estimated GFR (MDRD) ml/min Glucose (74-106) mg/dL POC Glucose 66 (60-110) mg/dL Calcium (8.5-10.1) mg/dL Magnesium (1.8-2.4) mg/dL Total Bilirubin (0.2-1.0) mg/dL AST (15-37) IU/L ALT (14-63) IU/L Alkaline Phosphatase (46-116) U/L Troponin I (0.000-0.056) ng/mL C-Reactive Protein (0.00-0.90) mg/dL B-Natriuretic Peptide (<100) PG/ML Total Protein (6.4-8.2) g/dL Albumin (3.4-5.0) g/dL Globulin (2.6-4.0) g/dL Albumin/Globulin Ratio (0.9-1.6) Urine Color Urine Appearance Urine pH (5.0-8.0) Ur Specific [place] (1.001-1.035) Urine Protein (NEGATIVE) mg/dL Urine Glucose (UA) (NEGATIVE) mg/dL Urine Ketones (NEGATIVE) mg/dL Urine Occult Blood (NEGATIVE) Urine Nitrite (NEGATIVE) Urine Bilirubin (NEGATIVE) Urine Urobilinogen (<2.0) EU/dL Ur Leukocyte Esterase (NEGATIVE) Urine Opiates Screen (NEGATIVE) Ur Oxycodone Screen (NEGATIVE) Urine Methadone Screen (NEGATIVE) Ur Barbiturates Screen (NEGATIVE) Ur Phencyclidine Scrn (NEGATIVE) Ur Amphetamine Screen (NEGATIVE) U Methamphetamines Scrn (NEGATIVE) U Benzodiazepines Scrn (NEGATIVE) U Cocaine Metab Screen (NEGATIVE) U Marijuana (THC) Screen (NEGATIVE) SARS-CoV-2 RNA (ONOFRE) (NEGATIVE) Result Diagrams: 03/11/20 05:56 03/11/20 05:56 Sepsis Event Note - Evaluation Sepsis Screening Result: No Definite Risk - Focused Exam Vital Signs: Vital Signs Temp Pulse Resp BP Pulse Ox 03/10/20 18:00 95 03/10/20 16:20 96 03/10/20 16:10 37.0 C 79 18 118/72 96 03/10/20 15:57 97 18 100 03/10/20 15:45 99 18 100 03/10/20 13:32 100 18 100 03/10/20 13:01 36.2 C 93 26 H 94/51 L 85 L Problem List Initiated/Reviewed/Updated: Yes Orders Last 24hrs: Active Orders 24 hr Category Date Time Status Patient Status [ADT] Routine ADT 03/10/20 15:11 Active BIPAP Adult [RT BiPAP/CPAP] [RC] ASDIRECTED Care 03/10/20 13:07 Active Blood Glucose Check, Bedside [RC] TIDMEALS Care 03/10/20 17:00 Active Cardiac Monitoring [RC] . DIRECTED Care 03/10/20 13:05 Active Pulse Oximetry [RC] ASDIRECTED Care 03/10/20 13:05 Active RT Aerosol Therapy [RC] ASDIRECTED Care 03/10/20 16:21 Active RT Post Treatment Assessment [RC] Click to Edit Care 03/10/20 20:41 Active RT Pre-Treatment Assessment [RC] Click to Edit Care 03/10/20 20:41 Active ADA Diabetic [[employer] [place] [employer] Diet] [DIET Diet 03/10/20 Dinner Active ] Albuterol [Proventil HFA] Med 03/10/20 20:40 Ordered 8.5 gm INH Q4H PRN Albuterol/Ipratropium [DuoNeb 3.0-0.5 MG/3 ML] Med 03/10/20 18:00 Active 3 ml NEB Q6HRRT Fluticasone Propionate [Flovent] Med 03/10/20 21:00 Ordered 1 puff IH BID Insulin Aspart [NovoLOG] Med 03/10/20 17:30 Active See Protocol SUBCUT TIDAC LORazepam Med 03/10/20 20:40 Ordered 0.5 mg PO BID PRN Levofloxacin/Dextrose 5%-Water [Levaquin in D5W 750 MG/ Med 03/10/20 20:45 Ordered 150 ML] 750 mg Premix Bag 1 bag IV Q24H Omeprazole Med 03/11/20 07:30 Ordered 20 mg PO ACBREAKFAST Ondansetron [Zofran] Med 03/10/20 20:40 Ordered 4 mg PO Q6H PRN Oxybutynin Med 03/10/20 22:00 Ordered 5 mg PO TID Simvastatin [Zocor] Med 03/10/20 21:00 Ordered 10 mg PO BEDTIME Sodium Chloride 0.9% [Saline Flush] Med 03/10/20 13:05 Active 10 ml FLUSH ASDIRECTED PRN Sodium Chloride 0.9% [Saline Flush] Med 03/10/20 13:05 Active 2.5 ml FLUSH ASDIRECTED PRN Umeclidinium [facility] [Incruse Ellipta*] Med 03/11/20 09:00 Ordered 1 puff IH DAILY Venlafaxine [Effexor XR] Med 03/10/20 21:00 Ordered 75 mg PO BID Verapamil [Calan] Med 03/10/20 22:00 Ordered 40 mg PO TID cloNIDine [Catapres] Med 03/10/20 21:00 Ordered 0.1 mg PO BID lisinopriL [Prinivil] Med 03/11/20 09:00 Ordered 10 mg PO DAILY methylPREDNISolone Sod Succ [Solu-MEDROL] Med 03/10/20 20:45 Ordered 125 mg IVPUSH Q8H Saline Lock Insert [OM.PC] Stat Oth 03/10/20 13:05 Ordered Medication Orders Albuterol (Proventil Hfa) 8.5 gm INH Q4H PRN PRN Reason: Shortness of Breath Albuterol/Ipratropium (Duoneb 3.0-0.5 Mg/3 Ml) 3 ml NEB Q6HRRT [facility] Last Admin: 03/10/20 17:46 Dose: 3 ml Documented by: STOCALL Clonidine HCl (Catapres) 0.1 mg PO BID YASIR Levofloxacin/Dextrose 750 mg/ (Premix) 150 mls @ 100 mls/hr IV Q24H YASIR Insulin Aspart (Novolog) 0 unit SUBCUT TIDAC [facility]; Protocol Last Admin: 03/10/20 18:49 Dose: Not Given Documented by: LUISA Lisinopril (Prinivil) 10 mg PO DAILY [facility] Methylprednisolone Sodium Succinate (Solu-Medrol) 125 mg IVPUSH Q8H YASIR Non-Formulary Medication (Fluticasone Propionate [Flovent]) 1 puff IH BID YASIR Non-Formulary Medication (Umeclidinium [facility] [Incruse Ellipta*]) 1 puff IH DAILY [facility] Non-Formulary Medication (Lorazepam) 0.5 mg PO BID PRN PRN Reason: Anxiety Omeprazole (Omeprazole) 20 mg PO ACBREAKFAST YASIR Ondansetron HCl (Zofran) 4 mg PO Q6H PRN PRN Reason: Nausea Oxybutynin Chloride (Oxybutynin) 5 mg PO TID YASIR Simvastatin (Zocor) 10 mg PO BEDTIME YASIR Sodium Chloride (Saline Flush) 10 ml FLUSH ASDIRECTED PRN PRN Reason: Keep Vein Open Last Admin: 03/10/20 13:20 Dose: 10 ml Documented by: [id number] Sodium Chloride (Saline Flush) 2.5 ml FLUSH ASDIRECTED PRN PRN Reason: Keep Vein Open Last Admin: 03/10/20 13:20 Dose: 2.5 ml Documented by: [id number] Venlafaxine HCl (Effexor Xr) 75 mg PO BID YASIR Verapamil HCl (Calan) 40 mg PO TID [facility] Assessment/Plan Comment:: 64 yo female admitted for COPD exacerbation. We will treat with IV solumedrol, duonebs and Levaquin.
[2020-03-10] MEDS ORDERED: Ibuprofen 200 MG Tab PO PRN (20:50)
[2020-03-10] MEDS ORDERED: Acetaminophen 325 MG Tab PO PRN (20:50)
[2020-03-10] MEDS ORDERED: Ondansetron 4 MG/2 ML SDV IVPUSH PRN (20:50)
[2020-03-10] MEDS ORDERED: Levofloxacin/Dextrose 5%-Water 750 MG in Premix Bag 1 BAG IV SCH (21:00)
[2020-03-10] MEDS: cloNIDine 0.1 MG Tab PO SCH (22:26)
[2020-03-10] MEDS: Heparin Sodium 5,000 Units/ML Vial SUBCUT SCH (22:27)
[2020-03-10] MEDS: methylPREDNISolone Sodium Succinate 125 MG/2 ML SDV IVPUSH SCH (22:29)
--- NOTE | 2020-03-10 22:33 | CT ---
INDICATION: Abnormal chest x-ray with right hilar lesion, follow-up. TECHNIQUE: Axial images were obtained from the thoracic inlet to the diaphragm. Reformats: Coronal and sagittal IV Contrast: None COMPARISON: Chest x-ray 03/10/[address] 03/03/2020 FINDINGS: Mediastinum: Thoracic aorta is normal in caliber with mild atherosclerotic calcification. Trace pericardial fluid. Right guillermo is less well-defined than on the prior examination given the noncontrast nature of the examination, however there is some mild soft tissue density in the region of the right guillermo. Lungs and Pleural Space: No pleural effusion or pneumothorax. Moderate to severe underlying centrilobular emphysema. At the level of the right upper lobe there is occlusion of the distal right upper lobe bronchus with somewhat amorphous density at this level. This is similar to the prior exam. There is some associated ground-glass as well as consolidation within the right upper lobe. Lingular discoid atelectasis. Chest wall: No masses. Upper abdomen: Cyst at the upper pole of the left kidney measuring 17 millimeters. Bones: Unremarkable for age. IMPRESSION: 1. Truncation of the right upper lobe bronchus with somewhat amorphous soft tissue density at this level. Differential diagnosis includes inflammation/endobronchial debris or mass lesion. Bronchoscopy recommended to exclude a right upper lobe bronchial neoplasm. 2. Ground-glass opacities and consolidation in the right upper lobe consistent with postobstructive atelectasis or pneumonia. 3. Moderate to severe centrilobular emphysema. Please note that all CT scans at this facility use dose modulation, iterative reconstruction, and/or weight-based dosing when appropriate to reduce radiation dose to as low as reasonably achievable. Dictated by Vinnie Aceves MD @ Mar 10 2020 10:19PM Signed by Dr. Vinnie Aceves @ Mar 10 2020 10:32PM
[2020-03-11] MEDS: Albuterol/Ipratropium 3.0-0.5 MG/3 ML Neb Soln NEB SCH ×5 (00:21→17:53)
[2020-03-11] MEDS: Oxybutynin 5 MG Tab PO SCH ×4 (00:30→21:04)
[2020-03-11] MEDS: Simvastatin 10 MG Tab PO SCH ×2 (00:30→21:04)
[2020-03-11] MEDS: Venlafaxine 75 MG Cap.ER PO SCH ×3 (01:31→21:05)
[2020-03-11] MEDS: Heparin Sodium 5,000 Units/ML Vial SUBCUT SCH ×3 (05:27→21:27)
[2020-03-11] MEDS: methylPREDNISolone Sodium Succinate 125 MG/2 ML SDV IVPUSH SCH ×2 (05:27→18:13)
[2020-03-11] MEDS: Omeprazole 20 MG Cap.CR PO SCH (06:50)
[2020-03-11 07:08] LABS: CARBON DIOXIDE,CO2 21.9 mmol/L (21.0-32.0); POTASSIUM,K 4.8 mmol/L (3.5-5.1)
[2020-03-11] MEDS: FLUTICASONE PROPIONATE INH SCH ×2 (07:49→08:20)
[2020-03-11] MEDS: Lisinopril 10 MG Tab PO SCH (08:18)
[2020-03-11] MEDS: cloNIDine 0.1 MG Tab PO SCH ×2 (08:19→21:02)
[2020-03-11] MEDS: UMECLIDINIUM BROMIDE 62.5 MCG INH SCH (08:20)
[2020-03-11] MEDS: Insulin Aspart 100 Units/ML 3 ML Pen SUBCUT SCH ×3 (08:24→18:05)
[2020-03-11] MEDS ORDERED: Albuterol HFA 18 Gm Inhaler INH PRN (11:15)
--- NOTE | 2020-03-11 11:36 | PCM.PN ---
- General Info Date of Service: 03/11/20 Admission Dx/Problem (Free Text): Admission Diagnosis/Problem Admission Diagnosis/Problem COPD, Severe chronic obstructive pulmonary disease Subjective Update: Feeling improved today, complaints of sore mouth. Breathing improved. No chest pain. Coughing up green sputum. Functional Status: Reports: Pain Controlled, Tolerating Diet, Ambulating, Urinating - Review of Systems General: Reports: No Symptoms. Denies: Fatigue, Malaise HEENT: Reports: Other (sore mouth) Pulmonary: Reports: Cough, Sputum. Denies: Shortness of Breath Cardiovascular: Reports: No Symptoms. Denies: Chest Pain, Edema Gastrointestinal: Reports: No Symptoms. Denies: Abdominal Pain, Nausea, Vomiting Genitourinary: Reports: No Symptoms. Denies: Dysuria, Frequency, Burning Musculoskeletal: Reports: No Symptoms Skin: Reports: No Symptoms Neurological: Reports: No Symptoms Psychiatric: Reports: No Symptoms - Patient Data Vitals - Most Recent: Last Vital Signs Temp 95.9 F L 03/11/20 08:00 Pulse 65 03/11/20 08:00 Resp 20 03/11/20 08:00 BP 178/95 H 03/11/20 08:19 Pulse Ox 97 03/11/20 08:00 Weight - Most Recent: 56.654 kg I&O - Last 24 Hours: Intake & Output 03/10/20 03/11/20 03/11/20 22:59 06:59 14:59 Intake Total 600 Output Total 950 Balance -350 Lab Results Last 24 Hours: Laboratory Results - last 24 hr 03/10/20 03/10/20 03/10/20 Range/Units 13:27 13:27 13:27 WBC 17.83 H (4.0-11.0) K/uL RBC 4.36 (4.30-5.90) M/uL Hgb 11.6 L (12.0-16.0) g/dL Hct 36.0 (36.0-46.0) % MCV 82.6 (80.0-98.0) fL MCH 26.6 L (27.0-32.0) pg MCHC 32.2 (31.0-37.0) g/dL RDW Std Deviation 45.7 (28.0-62.0) fl RDW Coeff of Jamil 15 (11.0-15.0) % Plt Count 410 H (150-400) K/uL MPV 8.90 (7.40-12.00) fL Neut % (Auto) 66.1 (48.0-80.0) % Lymph % (Auto) 23.9 (16.0-40.0) % [place] % (Auto) 8.6 (0.0-15.0) % Eos % (Auto) 1.3 (0.0-7.0) % Baso % (Auto) 0.1 (0.0-1.5) % Neut # (Auto) 11.8 H (1.4-5.7) K/uL Lymph # (Auto) 4.3 H (0.6-2.4) K/uL [place] # (Auto) 1.5 H (0.0-0.8) K/uL Eos # (Auto) 0.2 (0.0-0.7) K/uL Baso # (Auto) 0.0 (0.0-0.1) K/uL Nucleated RBC % 0.0 /100WBC Nucleated RBCs # 0 K/uL INR APTT (18.6-31.3) SEC D-Dimer, Quantitative (0.0-0.50) mg/L FEU ABG pH (7.35-7.45) ABG pCO2 (35-45) mmHG ABG pO2 (75-100) mmHG ABG HCO3 (22-26) mEq/L ABG Total CO2 ABG Base Excess (-2.0-2.0) Lactate 0.7 (0.20-2.00) mmol/L Sodium 136 (136-145) mmol/L Potassium 4.1 (3.5-5.1) mmol/L Chloride 100 (98-107) mmol/L Carbon Dioxide 21.2 (21.0-32.0) mmol/L BUN 40 H (7.0-18.0) mg/dL Creatinine 1.4 H (0.6-1.0) mg/dL Est Cr Clr Drug Dosing 38.29 mL/min Estimated GFR (MDRD) 38.0 ml/min Glucose 78 (74-106) mg/dL POC Glucose (60-110) mg/dL Calcium 9.2 (8.5-10.1) mg/dL Magnesium 2.0 (1.8-2.4) mg/dL Total Bilirubin 0.7 (0.2-1.0) mg/dL AST 18 (15-37) IU/L ALT 26 (14-63) IU/L Alkaline Phosphatase 93 (46-116) U/L Troponin I < 0.050 (0.000-0.056) ng/mL C-Reactive Protein 13.00 H (0.00-0.90) mg/dL B-Natriuretic Peptide (<100) PG/ML Total Protein 8.2 (6.4-8.2) g/dL Albumin 4.0 (3.4-5.0) g/dL Globulin 4.2 H (2.6-4.0) g/dL Albumin/Globulin Ratio 1.0 (0.9-1.6) Urine Color Urine Appearance Urine pH (5.0-8.0) Ur Specific [place] (1.001-1.035) Urine Protein (NEGATIVE) mg/dL Urine Glucose (UA) (NEGATIVE) mg/dL Urine Ketones (NEGATIVE) mg/dL Urine Occult Blood (NEGATIVE) Urine Nitrite (NEGATIVE) Urine Bilirubin (NEGATIVE) Urine Urobilinogen (<2.0) EU/dL Ur Leukocyte Esterase (NEGATIVE) Urine Opiates Screen (NEGATIVE) Ur Oxycodone Screen (NEGATIVE) Urine Methadone Screen (NEGATIVE) Ur Barbiturates Screen (NEGATIVE) Ur Phencyclidine Scrn (NEGATIVE) Ur Amphetamine Screen (NEGATIVE) U Methamphetamines Scrn (NEGATIVE) U Benzodiazepines Scrn (NEGATIVE) U Cocaine Metab Screen (NEGATIVE) U Marijuana (THC) Screen (NEGATIVE) SARS-CoV-2 RNA (ONOFRE) (NEGATIVE) 03/10/20 03/10/20 03/10/20 Range/Units 13:27 13:27 13:55 WBC (4.0-11.0) K/uL RBC (4.30-5.90) M/uL Hgb (12.0-16.0) g/dL Hct (36.0-46.0) % MCV (80.0-98.0) fL MCH (27.0-32.0) pg MCHC (31.0-37.0) g/dL RDW Std Deviation (28.0-62.0) fl RDW Coeff of Jamil (11.0-15.0) % Plt Count (150-400) K/uL MPV (7.40-12.00) fL Neut % (Auto) (48.0-80.0) % Lymph % (Auto) (16.0-40.0) % [place] % (Auto) (0.0-15.0) % Eos % (Auto) (0.0-7.0) % Baso % (Auto) (0.0-1.5) % Neut # (Auto) (1.4-5.7) K/uL Lymph # (Auto) (0.6-2.4) K/uL [place] # (Auto) (0.0-0.8) K/uL Eos # (Auto) (0.0-0.7) K/uL Baso # (Auto) (0.0-0.1) K/uL Nucleated RBC % /100WBC Nucleated RBCs # K/uL INR 1.06 APTT 24.7 (18.6-31.3) SEC D-Dimer, Quantitative 0.41 (0.0-0.50) mg/L FEU ABG pH 7.306 L (7.35-7.45) ABG pCO2 35 (35-45) mmHG ABG pO2 111 H (75-100) mmHG ABG HCO3 18 L (22-26) mEq/L ABG Total CO2 16.7 ABG Base Excess -7.9 L (-2.0-2.0) Lactate (0.20-2.00) mmol/L Sodium (136-145) mmol/L Potassium (3.5-5.1) mmol/L Chloride (98-107) mmol/L Carbon Dioxide (21.0-32.0) mmol/L BUN (7.0-18.0) mg/dL Creatinine (0.6-1.0) mg/dL Est Cr Clr Drug Dosing mL/min Estimated GFR (MDRD) ml/min Glucose (74-106) mg/dL POC Glucose (60-110) mg/dL Calcium (8.5-10.1) mg/dL Magnesium (1.8-2.4) mg/dL Total Bilirubin (0.2-1.0) mg/dL AST (15-37) IU/L ALT (14-63) IU/L Alkaline Phosphatase (46-116) U/L Troponin I (0.000-0.056) ng/mL C-Reactive Protein (0.00-0.90) mg/dL B-Natriuretic Peptide 53 (<100) PG/ML Total Protein (6.4-8.2) g/dL Albumin (3.4-5.0) g/dL Globulin (2.6-4.0) g/dL Albumin/Globulin Ratio (0.9-1.6) Urine Color Urine Appearance Urine pH (5.0-8.0) Ur Specific [place] (1.001-1.035) Urine Protein (NEGATIVE) mg/dL Urine Glucose (UA) (NEGATIVE) mg/dL Urine Ketones (NEGATIVE) mg/dL Urine Occult Blood (NEGATIVE) Urine Nitrite (NEGATIVE) Urine Bilirubin (NEGATIVE) Urine Urobilinogen (<2.0) EU/dL Ur Leukocyte Esterase (NEGATIVE) Urine Opiates Screen (NEGATIVE) Ur Oxycodone Screen (NEGATIVE) Urine Methadone Screen (NEGATIVE) Ur Barbiturates Screen (NEGATIVE) Ur Phencyclidine Scrn (NEGATIVE) Ur Amphetamine Screen (NEGATIVE) U Methamphetamines Scrn (NEGATIVE) U Benzodiazepines Scrn (NEGATIVE) U Cocaine Metab Screen (NEGATIVE) U Marijuana (THC) Screen (NEGATIVE) SARS-CoV-2 RNA (ONOFRE) (NEGATIVE) 03/10/20 03/10/20 03/10/20 Range/Units 14:40 16:20 16:20 WBC (4.0-11.0) K/uL RBC (4.30-5.90) M/uL Hgb (12.0-16.0) g/dL Hct (36.0-46.0) % MCV (80.0-98.0) fL MCH (27.0-32.0) pg MCHC (31.0-37.0) g/dL RDW Std Deviation (28.0-62.0) fl RDW Coeff of Jamil (11.0-15.0) % Plt Count (150-400) K/uL MPV (7.40-12.00) fL Neut % (Auto) (48.0-80.0) % Lymph % (Auto) (16.0-40.0) % [place] % (Auto) (0.0-15.0) % Eos % (Auto) (0.0-7.0) % Baso % (Auto) (0.0-1.5) % Neut # (Auto) (1.4-5.7) K/uL Lymph # (Auto) (0.6-2.4) K/uL [place] # (Auto) (0.0-0.8) K/uL Eos # (Auto) (0.0-0.7) K/uL Baso # (Auto) (0.0-0.1) K/uL Nucleated RBC % /100WBC Nucleated RBCs # K/uL INR APTT (18.6-31.3) SEC D-Dimer, Quantitative (0.0-0.50) mg/L FEU ABG pH (7.35-7.45) ABG pCO2 (35-45) mmHG ABG pO2 (75-100) mmHG ABG HCO3 (22-26) mEq/L ABG Total CO2 ABG Base Excess (-2.0-2.0) Lactate (0.20-2.00) mmol/L Sodium (136-145) mmol/L Potassium (3.5-5.1) mmol/L Chloride (98-107) mmol/L Carbon Dioxide (21.0-32.0) mmol/L BUN (7.0-18.0) mg/dL Creatinine (0.6-1.0) mg/dL Est Cr Clr Drug Dosing mL/min Estimated GFR (MDRD) ml/min Glucose (74-106) mg/dL POC Glucose (60-110) mg/dL Calcium (8.5-10.1) mg/dL Magnesium (1.8-2.4) mg/dL Total Bilirubin (0.2-1.0) mg/dL AST (15-37) IU/L ALT (14-63) IU/L Alkaline Phosphatase (46-116) U/L Troponin I (0.000-0.056) ng/mL C-Reactive Protein (0.00-0.90) mg/dL B-Natriuretic Peptide (<100) PG/ML Total Protein (6.4-8.2) g/dL Albumin (3.4-5.0) g/dL Globulin (2.6-4.0) g/dL Albumin/Globulin Ratio (0.9-1.6) Urine Color YELLOW Urine Appearance CLEAR Urine pH 5.5 (5.0-8.0) Ur Specific [place] 1.020 (1.001-1.035) Urine Protein NEGATIVE (NEGATIVE) mg/dL Urine Glucose (UA) NEGATIVE (NEGATIVE) mg/dL Urine Ketones NEGATIVE (NEGATIVE) mg/dL Urine Occult Blood NEGATIVE (NEGATIVE) Urine Nitrite NEGATIVE (NEGATIVE) Urine Bilirubin NEGATIVE (NEGATIVE) Urine Urobilinogen 0.2 (<2.0) EU/dL Ur Leukocyte Esterase NEGATIVE (NEGATIVE) Urine Opiates Screen NEGATIVE (NEGATIVE) Ur Oxycodone Screen NEGATIVE (NEGATIVE) Urine Methadone Screen NEGATIVE (NEGATIVE) Ur Barbiturates Screen NEGATIVE (NEGATIVE) Ur Phencyclidine Scrn NEGATIVE (NEGATIVE) Ur Amphetamine Screen POSITIVE (NEGATIVE) U Methamphetamines Scrn POSITIVE (NEGATIVE) U Benzodiazepines Scrn NEGATIVE (NEGATIVE) U Cocaine Metab Screen NEGATIVE (NEGATIVE) U Marijuana (THC) Screen NEGATIVE (NEGATIVE) SARS-CoV-2 RNA (ONOFRE) NEGATIVE (NEGATIVE) 03/10/20 03/10/20 03/11/20 Range/Units 18:24 22:51 05:56 WBC 10.58 (4.0-11.0) K/uL RBC 4.32 (4.30-5.90) M/uL Hgb 11.4 L (12.0-16.0) g/dL Hct 35.7 L (36.0-46.0) % MCV 82.6 (80.0-98.0) fL MCH 26.4 L (27.0-32.0) pg MCHC 31.9 (31.0-37.0) g/dL RDW Std Deviation 45.7 (28.0-62.0) fl RDW Coeff of Jamil 15 (11.0-15.0) % Plt Count 336 (150-400) K/uL MPV 9.40 (7.40-12.00) fL Neut % (Auto) 91.3 H (48.0-80.0) % Lymph % (Auto) 8.3 L (16.0-40.0) % [place] % (Auto) 0.3 (0.0-15.0) % Eos % (Auto) 0.1 (0.0-7.0) % Baso % (Auto) 0.0 (0.0-1.5) % Neut # (Auto) 9.7 H (1.4-5.7) K/uL Lymph # (Auto) 0.9 (0.6-2.4) K/uL [place] # (Auto) 0.0 (0.0-0.8) K/uL Eos # (Auto) 0.0 (0.0-0.7) K/uL Baso # (Auto) 0.0 (0.0-0.1) K/uL Nucleated RBC % 0.0 /100WBC Nucleated RBCs # 0 K/uL INR APTT (18.6-31.3) SEC D-Dimer, Quantitative (0.0-0.50) mg/L FEU ABG pH (7.35-7.45) ABG pCO2 (35-45) mmHG ABG pO2 (75-100) mmHG ABG HCO3 (22-26) mEq/L ABG Total CO2 ABG Base Excess (-2.0-2.0) Lactate (0.20-2.00) mmol/L Sodium (136-145) mmol/L Potassium (3.5-5.1) mmol/L Chloride (98-107) mmol/L Carbon Dioxide (21.0-32.0) mmol/L BUN (7.0-18.0) mg/dL Creatinine (0.6-1.0) mg/dL Est Cr Clr Drug Dosing mL/min Estimated GFR (MDRD) ml/min Glucose (74-106) mg/dL POC Glucose 66 86 (60-110) mg/dL Calcium (8.5-10.1) mg/dL Magnesium (1.8-2.4) mg/dL Total Bilirubin (0.2-1.0) mg/dL AST (15-37) IU/L ALT (14-63) IU/L Alkaline Phosphatase (46-116) U/L Troponin I (0.000-0.056) ng/mL C-Reactive Protein (0.00-0.90) mg/dL B-Natriuretic Peptide (<100) PG/ML Total Protein (6.4-8.2) g/dL Albumin (3.4-5.0) g/dL Globulin (2.6-4.0) g/dL Albumin/Globulin Ratio (0.9-1.6) Urine Color Urine Appearance Urine pH (5.0-8.0) Ur Specific [place] (1.001-1.035) Urine Protein (NEGATIVE) mg/dL Urine Glucose (UA) (NEGATIVE) mg/dL Urine Ketones (NEGATIVE) mg/dL Urine Occult Blood (NEGATIVE) Urine Nitrite (NEGATIVE) Urine Bilirubin (NEGATIVE) Urine Urobilinogen (<2.0) EU/dL Ur Leukocyte Esterase (NEGATIVE) Urine Opiates Screen (NEGATIVE) Ur Oxycodone Screen (NEGATIVE) Urine Methadone Screen (NEGATIVE) Ur Barbiturates Screen (NEGATIVE) Ur Phencyclidine Scrn (NEGATIVE) Ur Amphetamine Screen (NEGATIVE) U Methamphetamines Scrn (NEGATIVE) U Benzodiazepines Scrn (NEGATIVE) U Cocaine Metab Screen (NEGATIVE) U Marijuana (THC) Screen (NEGATIVE) SARS-CoV-2 RNA (ONOFRE) (NEGATIVE) 03/11/20 03/11/20 Range/Units 05:56 06:49 WBC (4.0-11.0) K/uL RBC (4.30-5.90) M/uL Hgb (12.0-16.0) g/dL Hct (36.0-46.0) % MCV (80.0-98.0) fL MCH (27.0-32.0) pg MCHC (31.0-37.0) g/dL RDW Std Deviation (28.0-62.0) fl RDW Coeff of Jamil (11.0-15.0) % Plt Count (150-400) K/uL MPV (7.40-12.00) fL Neut % (Auto) (48.0-80.0) % Lymph % (Auto) (16.0-40.0) % [place] % (Auto) (0.0-15.0) % Eos % (Auto) (0.0-7.0) % Baso % (Auto) (0.0-1.5) % Neut # (Auto) (1.4-5.7) K/uL Lymph # (Auto) (0.6-2.4) K/uL [place] # (Auto) (0.0-0.8) K/uL Eos # (Auto) (0.0-0.7) K/uL Baso # (Auto) (0.0-0.1) K/uL Nucleated RBC % /100WBC Nucleated RBCs # K/uL INR APTT (18.6-31.3) SEC D-Dimer, Quantitative (0.0-0.50) mg/L FEU ABG pH (7.35-7.45) ABG pCO2 (35-45) mmHG ABG pO2 (75-100) mmHG ABG HCO3 (22-26) mEq/L ABG Total CO2 ABG Base Excess (-2.0-2.0) Lactate (0.20-2.00) mmol/L Sodium 134 L (136-145) mmol/L Potassium 4.8 (3.5-5.1) mmol/L Chloride 101 (98-107) mmol/L Carbon Dioxide 21.9 (21.0-32.0) mmol/L BUN 27 H (7.0-18.0) mg/dL Creatinine 1.0 (0.6-1.0) mg/dL Est Cr Clr Drug Dosing 51.50 mL/min Estimated GFR (MDRD) 56.0 ml/min Glucose 198 H (74-106) mg/dL POC Glucose 181 H (60-110) mg/dL Calcium 8.9 (8.5-10.1) mg/dL Magnesium (1.8-2.4) mg/dL Total Bilirubin (0.2-1.0) mg/dL AST (15-37) IU/L ALT (14-63) IU/L Alkaline Phosphatase (46-116) U/L Troponin I (0.000-0.056) ng/mL C-Reactive Protein (0.00-0.90) mg/dL B-Natriuretic Peptide (<100) PG/ML Total Protein (6.4-8.2) g/dL Albumin (3.4-5.0) g/dL Globulin (2.6-4.0) g/dL Albumin/Globulin Ratio (0.9-1.6) Urine Color Urine Appearance Urine pH (5.0-8.0) Ur Specific [place] (1.001-1.035) Urine Protein (NEGATIVE) mg/dL Urine Glucose (UA) (NEGATIVE) mg/dL Urine Ketones (NEGATIVE) mg/dL Urine Occult Blood (NEGATIVE) Urine Nitrite (NEGATIVE) Urine Bilirubin (NEGATIVE) Urine Urobilinogen (<2.0) EU/dL Ur Leukocyte Esterase (NEGATIVE) Urine Opiates Screen (NEGATIVE) Ur Oxycodone Screen (NEGATIVE) Urine Methadone Screen (NEGATIVE) Ur Barbiturates Screen (NEGATIVE) Ur Phencyclidine Scrn (NEGATIVE) Ur Amphetamine Screen (NEGATIVE) U Methamphetamines Scrn (NEGATIVE) U Benzodiazepines Scrn (NEGATIVE) U Cocaine Metab Screen (NEGATIVE) U Marijuana (THC) Screen (NEGATIVE) SARS-CoV-2 RNA (ONOFRE) (NEGATIVE) Med Orders - Current: Current Medications Acetaminophen (Tylenol) 650 mg PO Q6H PRN PRN Reason: Pain (Mild 1-3)/fever Albuterol (Ventolin Hfa) 0 gm INH Q4H PRN PRN Reason: Shortness of Breath Albuterol/Ipratropium (Duoneb 3.0-0.5 Mg/3 Ml) 3 ml NEB Q6HRRT REPLACED BY [facility] Last Admin: 03/11/20 11:23 Dose: 3 ml Documented by: Clonidine HCl (Catapres) 0.1 mg PO BID REPLACED BY [facility] Last Admin: 03/11/20 08:19 Dose: 0.1 mg Documented by: Diphenhydramine/Nystatin/Lidocaine (Magic Mouthwash) 5 ml PO QIDACANDBED REPLACED BY [facility] Heparin Sodium (Porcine) (Heparin Sodium) 5,000 units SUBCUT Q8H REPLACED BY [facility] Last Admin: 03/11/20 05:27 Dose: 5,000 units Documented by: Levofloxacin/Dextrose 750 mg/ (Premix) 150 mls @ 100 mls/hr IV Q24H REPLACED BY [facility] Ibuprofen (Motrin) 200 mg PO Q6H PRN PRN Reason: Pain (mild 1-3) Insulin Aspart (Novolog) 0 unit SUBCUT TIDAC REPLACED BY [facility]; Protocol Last Admin: 03/11/20 08:24 Dose: 1 unit Documented by: Lisinopril (Prinivil) 10 mg PO DAILY REPLACED BY [facility] Last Admin: 03/11/20 08:18 Dose: 10 mg Documented by: Lorazepam (Ativan) 0.5 mg PO BID PRN PRN Reason: Anxiety Methylprednisolone Sodium Succinate (Solu-Medrol) 125 mg IVPUSH Q8H REPLACED BY [facility] Last Admin: 03/11/20 05:27 Dose: 125 mg Documented by: Omeprazole (Omeprazole) 20 mg PO ACBREAKFAST REPLACED BY [facility] Last Admin: 03/11/20 06:50 Dose: 20 mg Documented by: Ondansetron HCl (Zofran) 4 mg PO Q6H PRN PRN Reason: Nausea Ondansetron HCl (Zofran) 4 mg IVPUSH Q4H PRN PRN Reason: Nausea Oxybutynin Chloride (Oxybutynin) 5 mg PO TID REPLACED BY [facility] Last Admin: 03/11/20 06:50 Dose: 5 mg Documented by: Umeclidinium [place] [Incruse Ellipta*] 62.5mcg 1 each INH DAILY REPLACED BY [facility] Last Admin: 03/11/20 08:20 Dose: Not Given Documented by: Simvastatin (Zocor) 10 mg PO BEDTIME REPLACED BY [facility] Last Admin: 03/11/20 00:30 Dose: 10 mg Documented by: Sodium Chloride (Saline Flush) 10 ml FLUSH ASDIRECTED PRN PRN Reason: Keep Vein Open Last Admin: 03/10/20 13:20 Dose: 10 ml Documented by: Sodium Chloride (Saline Flush) 2.5 ml FLUSH ASDIRECTED PRN PRN Reason: Keep Vein Open Last Admin: 03/10/20 13:20 Dose: 2.5 ml Documented by: Venlafaxine HCl (Effexor Xr) 75 mg PO BID REPLACED BY [facility] Last Admin: 03/11/20 08:18 Dose: 75 mg Documented by: Verapamil HCl (Calan) 40 mg PO TID REPLACED BY [facility] Last Admin: 03/11/20 06:50 Dose: 40 mg Documented by: Discontinued Medications Albuterol (Proventil Hfa) 0 gm INH Q4H PRN PRN Reason: Shortness of Breath Albuterol/Ipratropium (Duoneb 3.0-0.5 Mg/3 Ml) 3 ml NEB ONETIME ONE Stop: 03/10/20 13:06 Last Admin: 03/10/20 13:19 Dose: 3 ml Documented by: Albuterol/Ipratropium (Duoneb 3.0-0.5 Mg/3 Ml) 3 ml NEB Q6HRRT REPLACED BY [facility] Last Admin: 03/11/20 00:21 Dose: 3 ml Documented by: Sodium Chloride (Normal Saline) 1,000 mls @ 999 mls/hr IV .Bolus ONE Stop: 03/10/20 14:05 Last Admin: 03/10/20 13:20 Dose: 999 mls/hr Documented by: Magnesium Sulfate 2 gm/ Premix 50 mls @ 50 mls/hr IV ONETIME ONE Stop: 03/10/20 14:06 Last Admin: 03/10/20 13:19 Dose: 50 mls/hr Documented by: Levofloxacin/Dextrose 750 mg/ (Premix) 150 mls @ 100 mls/hr IV Q48H REPLACED BY [facility] Last Admin: 03/10/20 22:34 Dose: 100 mls/hr Documented by: Lorazepam (Ativan) 0.5 mg IVPUSH ONETIME ONE Stop: 03/10/20 13:10 Last Admin: 03/10/20 13:19 Dose: 0.5 mg Documented by: Lorazepam (Ativan) 0.5 mg IVPUSH ONETIME ONE Stop: 03/10/20 14:38 Last Admin: 03/10/20 14:44 Dose: 0.5 mg Documented by: Methylprednisolone Sodium Succinate (Solu-Medrol) 125 mg IVPUSH ONETIME ONE Stop: 03/10/20 13:06 Last Admin: 03/10/20 13:19 Dose: 125 mg Documented by: Fluticasone Propionate [Flovent] 50mcg/Puff 1 each INH BID REPLACED BY [facility] Last Admin: 03/11/20 08:20 Dose: Not Given Documented by: Terbutaline Sulfate (Brethine) 0.25 mg SUBCUT ONETIME ONE Stop: 03/10/20 13:08 Last Admin: 03/10/20 14:20 Dose: 0.25 mg Documented by: - Exam General: Alert, Oriented, Cooperative, No Acute Distress Lungs: Decreased Breath Sounds (throu) Cardiovascular: Regular Rate, Regular Rhythm GI/Abdominal Exam: Normal Bowel Sounds, Soft, Non-Tender Back Exam: Normal Inspection, Full Range of Motion Extremities: Normal Inspection, Normal Range of Motion, Non-Tender, No Pedal Edema Neurological: No New Focal Deficit Psy/Mental Status: Alert, Normal Affect, Normal Mood Sepsis Event Note - Evaluation Sepsis Screening Result: No Definite Risk - Focused Exam Vital Signs: Vital Signs Temp Pulse Resp BP BP Pulse Ox 03/11/20 08:19 178/95 H 03/11/20 08:18 178/95 H 03/11/20 08:00 95.9 F L 65 20 178/95 H 97 03/11/20 04:20 97.3 F 75 21 H 165/92 H 93 L 03/11/20 00:50 96.4 F L 83 21 H 164/85 H 96 - Problem List & Annotations (1) COPD exacerbation SNOMED Code(s): 472749843 Code(s): J44.1 - CHRONIC OBSTRUCTIVE PULMONARY DISEASE W (ACUTE) EXACERBATION Status: Acute Current Visit: Yes (2) CAP (community acquired pneumonia) SNOMED Code(s): 855629018 Code(s): J18.9 - PNEUMONIA, UNSPECIFIED ORGANISM Status: Acute Current Visit: No (3) Anxiety SNOMED Code(s): 27714186 Code(s): F41.9 - ANXIETY DISORDER, UNSPECIFIED Status: Chronic Current Visit: No (4) COPD (chronic obstructive pulmonary disease) SNOMED Code(s): 96328717 Code(s): J44.9 - CHRONIC OBSTRUCTIVE PULMONARY DISEASE, UNSPECIFIED Status: Chronic Current Visit: No Qualifiers: COPD type: COPD with acute exacerbation Qualified Code(s): J44.1 - Chronic obstructive pulmonary disease with (acute) exacerbation (5) Depression SNOMED Code(s): 48275449 Code(s): F32.9 - MAJOR DEPRESSIVE DISORDER, SINGLE EPISODE, UNSPECIFIED Status: Chronic Current Visit: No Qualifiers: Depression Type: unspecified Qualified Code(s): F32.9 - Major depressive disorder, single episode, unspecified (6) Drug abuse, episodic use SNOMED Code(s): 403988470 Code(s): F19.10 - OTHER PSYCHOACTIVE SUBSTANCE ABUSE, UNCOMPLICATED Status: Chronic Current Visit: No (7) HTN (hypertension) SNOMED Code(s): 54513705 Code(s): I10 - ESSENTIAL (PRIMARY) HYPERTENSION Status: Chronic Current Visit: No Qualifiers: Hypertension type: essential hypertension Qualified Code(s): I10 - Essential (primary) hypertension (8) History of tobacco abuse SNOMED Code(s): 494282039, 446329891 Code(s): Z87.891 - Status: Chronic Current Visit: No (9) Hx of hepatitis C SNOMED Code(s): 79541971091714, [id number] Code(s): Z86.19 - Status: Chronic Current Visit: No (10) Oxygen dependent SNOMED Code(s): 980979307247 Code(s): Z99.81 - Status: Chronic Current Visit: No - Problem List Review Problem List Initiated/Reviewed/Updated: No - My Orders Last 24 Hours: My Active Orders 03/11/20 11:30 Diphenhyd/Lidocaine/Nystatin [Magic Mouthwash] 5 ml PO QIDACANDBED - Plan Plan:: 64 yo female admitted for COPD exacerbation. 1. COPD exacerbation, - Continue IV solumedrol, but will decrease dose today, 80 mg Q12hr. - Continue Levaquin, due to sputum changes. - Continue INhalers, encouraged good mouth cares with ICS steroids. - Christopher 2. Oral Thrush - Start Nystatin mouth wash with meals and bedtime 3. HTN - Elevated, monitor with decreasein steroids - Resume home antihypertensives VTE prophylaxis: Heparin Dispo: 1 day
[2020-03-11] MEDS: Diphenhydramine/Lidocaine/Nystatin Suspension 237 ML Bottle PO SCH ×3 (12:56→21:15)
[2020-03-11] MEDS ORDERED: Levofloxacin/Dextrose 5%-Water 750 MG in Premix Bag 1 BAG IV SCH (21:00)
[2020-03-12] MEDS: Albuterol/Ipratropium 3.0-0.5 MG/3 ML Neb Soln NEB SCH ×3 (01:45→11:16)
[2020-03-12] MEDS: Heparin Sodium 5,000 Units/ML Vial SUBCUT SCH (05:44)
[2020-03-12] MEDS: Oxybutynin 5 MG Tab PO SCH (05:48)
[2020-03-12] MEDS: methylPREDNISolone Sodium Succinate 125 MG/2 ML SDV IVPUSH SCH (05:51)
[2020-03-12 07:28] LABS: CARBON DIOXIDE,CO2 23.1 mmol/L (21.0-32.0); POTASSIUM,K 4.9 mmol/L (3.5-5.1)
[2020-03-12] MEDS: Omeprazole 20 MG Cap.CR PO SCH (07:30)
[2020-03-12] MEDS: Diphenhydramine/Lidocaine/Nystatin Suspension 237 ML Bottle PO SCH ×2 (07:31→10:35)
[2020-03-12] MEDS: Insulin Aspart 100 Units/ML 3 ML Pen SUBCUT SCH (07:33)
[2020-03-12 08:20] VITALS: BP 136/91; PULSE 76
[2020-03-12] MEDS: cloNIDine 0.1 MG Tab PO SCH (08:30)
[2020-03-12] MEDS: Venlafaxine 75 MG Cap.ER PO SCH (08:31)
[2020-03-12] MEDS: Lisinopril 10 MG Tab PO SCH (08:31)
[2020-03-12] MEDS: UMECLIDINIUM BROMIDE 62.5 MCG INH SCH (08:33)
[2020-03-12] MEDS ORDERED: Fluconazole 100 MG Tab PO ONE (10:00)
--- NOTE | 2020-03-12 11:37 | PCM.DCSUM1 ---
Discharge Summary - Hospital Course Brief History: 64 year old female with pmh of oxygen dependent COPD, HTN, Hep C, anxiety who was admitted ten days ago for COPD exacerbation. She was discharged home on prednisone and azithormycin. She reported once the steroid and antibiotic were finished the next day she developed shortness of breath, wheezing and copious amount of mucus production with her cough. She report she has not been able to eat anything. In the ED she was placed on BIPAP breifly but was unable to tolerate it for long. She is now satting 95% on 2 liters. Diagnosis: Stroke: No - Discharge Data Discharge Date: 03/12/20 Discharge Disposition: Home, Self-Care 01 Condition: Good - Referral to Home Health Primary Care Physician: Vu Stern MD - Discharge Diagnosis/Problem(s) (1) COPD exacerbation SNOMED Code(s): 306213648 ICD Code: J44.1 - CHRONIC OBSTRUCTIVE PULMONARY DISEASE W (ACUTE) EXACERBATION Status: Acute (2) CAP (community acquired pneumonia) SNOMED Code(s): 539036053 ICD Code: J18.9 - PNEUMONIA, UNSPECIFIED ORGANISM Status: Acute (3) Anxiety SNOMED Code(s): 78285321 ICD Code: F41.9 - ANXIETY DISORDER, UNSPECIFIED Status: Chronic (4) COPD (chronic obstructive pulmonary disease) SNOMED Code(s): 32445747 ICD Code: J44.9 - CHRONIC OBSTRUCTIVE PULMONARY DISEASE, UNSPECIFIED Status: Chronic Qualifiers: COPD type: COPD with acute exacerbation Qualified Code(s): J44.1 - Chronic obstructive pulmonary disease with (acute) exacerbation (5) Depression SNOMED Code(s): 91794531 ICD Code: F32.9 - MAJOR DEPRESSIVE DISORDER, SINGLE EPISODE, UNSPECIFIED Status: Chronic Qualifiers: Depression Type: unspecified Qualified Code(s): F32.9 - Major depressive disorder, single episode, unspecified (6) Drug abuse, episodic use SNOMED Code(s): 472594593 ICD Code: F19.10 - OTHER PSYCHOACTIVE SUBSTANCE ABUSE, UNCOMPLICATED Status: Chronic (7) HTN (hypertension) SNOMED Code(s): 13972984 ICD Code: I10 - ESSENTIAL (PRIMARY) HYPERTENSION Status: Chronic Qualifiers: Hypertension type: essential hypertension Qualified Code(s): I10 - Essential (primary) hypertension (8) History of tobacco abuse SNOMED Code(s): 676117788, 489972170 ICD Code: Z87.891 - PERSONAL HISTORY OF NICOTINE DEPENDENCE Status: Chronic (9) Hx of hepatitis C SNOMED Code(s): 21936537544558, 95590978183029 ICD Code: Z86.19 - PERSONAL HISTORY OF OTHER INFECTIOUS AND PARASITIC DISEASES Status: Chronic (10) Oxygen dependent SNOMED Code(s): 970368603113 ICD Code: Z99.81 - DEPENDENCE ON SUPPLEMENTAL OXYGEN Status: Chronic - Patient Summary/Data Hospital Course: Admitting Diagnoses: COPD exacerbation CAP Discharge Diagnoses: COPD exacerbation CAP Oral thrush She was admitted for recurrent COPD exacerbation. She has severe chronic respiratory failure on oxygen continuously at home. She was recently discharged on prednisone and azithromycin. She reported once she had stopped these she developed shortness of breath or wheezing and significant mucus production. She reports mouth pain as well. she was started on Levaquin and Solumedrol. Magic mouthwash was ordered for mouth as well as Diflucan. Today mouth is much better and breathing and coughing has improved. She is stable for discharge. She will continue mouth wash for 10 days. She is to rinse mouth out with water after each inhaler use. She is to Continue Levaquin and Prednisone taper at home, after Levaquin is finished she should start Azithromycin 250 mg every other day for 14 days. 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 She may need to be on chronic Azithromycin due to frequent admission related to COPD. She is to return to the ED or clinic if concerns should arise. - Patient Instructions Diet: Regular Diet as Tolerated Activity: As Tolerated, No Strenuous Activities Driving: Do Not Drive Showering/Bathing: May Shower Notify Provider of: Fever, Increased Pain, Swelling and Redness, Drainage, Nausea and/or Vomiting - Discharge Plan *PRESCRIPTION DRUG MONITORING PROGRAM REVIEWED*: Not Applicable *COPY OF PRESCRIPTION DRUG MONITORING REPORT IN PATIENT KARIE: Not Applicable Prescriptions/Med Rec: Azithromycin 250 mg PO Q48H #14 tablet levoFLOXacin [Levaquin] 750 mg PO DAILY #3 tab Diphenhyd/Lidocaine/Nystatin [Magic Mouthwash] 5 ml PO QIDACANDBED 10 Days #1 bottle predniSONE [Prednisone] 10 - 40 mg PO DAILY #30 tablet Home Medications: Home Meds Venlafaxine HCl [Venlafaxine ER] 150 mg PO BID 04/14/19 [History] cloNIDine [Catapres] 0.1 mg PO BID 09/22/18 [History] Umeclidinium [place] [Incruse Ellipta*] 1 puff IH DAILY 05/19/19 [History] Escitalopram [Lexapro] 20 mg PO DAILY 08/06/19 [History] Oxybutynin 5 mg PO TID 08/06/19 [History] lisinopriL [Zestril] 10 mg PO DAILY 08/06/19 [History] Simvastatin [Zocor] 10 mg PO BEDTIME 09/01/19 [History] Acetaminophen [Tylenol] 650 mg PO Q6H PRN #20 tablet 11/16/19 [Rx] Sucralfate [Carafate] 1 gm PO QIDACANDBED #120 tablet 11/16/19 [Rx] Hydrocodone/Acetaminophen [Kaycee 7.5-325 Tablet] 1 each PO Q4HR PRN #14 tablet 02/18/20 [Rx] Albuterol Sulfate [Albuterol Sulfate Hfa] 2 puff IH BID 03/01/20 [History] Budesonide/Formoterol [Symbicort 160-4.5 MCG] 1 puff INH BID 03/01/20 [History] LORazepam [Lorazepam] 0.5 mg PO BID PRN 03/01/20 [History] Ondansetron [Zofran] 4 mg PO Q6H PRN 03/01/20 [History] Verapamil [Calan] 40 mg PO TID 03/01/20 [History] Fluticasone Propionate 03/11/20 [History] Azithromycin 250 mg PO Q48H #14 tablet 03/12/20 [Rx] Diphenhyd/Lidocaine/Nystatin [Magic Mouthwash] 5 ml PO QIDACANDBED 10 Days #1 bottle 03/12/20 [Rx] levoFLOXacin [Levaquin] 750 mg PO DAILY #3 tab 03/12/20 [Rx] predniSONE [Prednisone] 10 - 40 mg PO DAILY #30 tablet 03/12/20 [Rx] Oxygen Therapy Mode: Room Air Patient Handouts: Chronic Obstructive Pulmonary Disease, [id number], Azithromycin tablets, Levofloxacin tablets, Prednisone tablets Referrals: Vu Stern MD [Primary Care Provider] - 03/19/20 10:00 am - Discharge Summary/Plan Comment DC Time >30 min.: No - Patient Data Vitals - Most Recent: Last Vital Signs Temp 98.7 F 03/12/20 08:00 Pulse 76 03/12/20 08:00 Resp 20 03/12/20 08:00 BP 136/91 H 03/12/20 08:31 Pulse Ox 96 03/12/20 08:00 Weight - Most Recent: 56.654 kg I&O - Last 24 hours: Intake & Output 03/11/20 03/12/20 03/12/20 22:59 06:59 14:59 Intake Total 1600 500 Output Total 1000 1300 Balance 600 -800 Lab Results - Last 24 hrs: Laboratory Results - last 24 hr 03/11/20 03/11/20 03/12/20 Range/Units 12:45 17:10 05:59 WBC (4.0-11.0) K/uL RBC (4.30-5.90) M/uL Hgb (12.0-16.0) g/dL Hct (36.0-46.0) % MCV (80.0-98.0) fL MCH (27.0-32.0) pg MCHC (31.0-37.0) g/dL RDW Std Deviation (28.0-62.0) fl RDW Coeff of Jamil (11.0-15.0) % Plt Count (150-400) K/uL MPV (7.40-12.00) fL Neut % (Auto) (48.0-80.0) % Lymph % (Auto) (16.0-40.0) % [place] % (Auto) (0.0-15.0) % Eos % (Auto) (0.0-7.0) % Baso % (Auto) (0.0-1.5) % Neut # (Auto) (1.4-5.7) K/uL Lymph # (Auto) (0.6-2.4) K/uL [place] # (Auto) (0.0-0.8) K/uL Eos # (Auto) (0.0-0.7) K/uL Baso # (Auto) (0.0-0.1) K/uL Nucleated RBC % /100WBC Nucleated RBCs # K/uL Sodium (136-145) mmol/L Potassium (3.5-5.1) mmol/L Chloride (98-107) mmol/L Carbon Dioxide (21.0-32.0) mmol/L BUN (7.0-18.0) mg/dL Creatinine (0.6-1.0) mg/dL Est Cr Clr Drug Dosing mL/min Estimated GFR (MDRD) ml/min Glucose (74-106) mg/dL POC Glucose 188 H 134 H 149 H (60-110) mg/dL Calcium (8.5-10.1) mg/dL 03/12/20 03/12/20 Range/Units 06:21 06:21 WBC 20.99 H (4.0-11.0) K/uL RBC 4.06 L (4.30-5.90) M/uL Hgb 11.0 L (12.0-16.0) g/dL Hct 33.4 L (36.0-46.0) % MCV 82.3 (80.0-98.0) fL MCH 27.1 (27.0-32.0) pg MCHC 32.9 (31.0-37.0) g/dL RDW Std Deviation 45.5 (28.0-62.0) fl RDW Coeff of Jamil 15 (11.0-15.0) % Plt Count 315 (150-400) K/uL MPV 9.60 (7.40-12.00) fL Neut % (Auto) 88.4 H (48.0-80.0) % Lymph % (Auto) 6.2 L (16.0-40.0) % [place] % (Auto) 5.4 (0.0-15.0) % Eos % (Auto) 0.0 (0.0-7.0) % Baso % (Auto) 0.0 (0.0-1.5) % Neut # (Auto) 18.5 H (1.4-5.7) K/uL Lymph # (Auto) 1.3 (0.6-2.4) K/uL [place] # (Auto) 1.1 H (0.0-0.8) K/uL Eos # (Auto) 0.0 (0.0-0.7) K/uL Baso # (Auto) 0.0 (0.0-0.1) K/uL Nucleated RBC % 0.0 /100WBC Nucleated RBCs # 0 K/uL Sodium 133 L (136-145) mmol/L Potassium 4.9 (3.5-5.1) mmol/L Chloride 100 (98-107) mmol/L Carbon Dioxide 23.1 (21.0-32.0) mmol/L BUN 35 H (7.0-18.0) mg/dL Creatinine 1.1 H (0.6-1.0) mg/dL Est Cr Clr Drug Dosing 46.82 mL/min Estimated GFR (MDRD) 50.2 ml/min Glucose 142 H (74-106) mg/dL POC Glucose (60-110) mg/dL Calcium 9.3 (8.5-10.1) mg/dL Med Orders - Current: Current Medications Acetaminophen (Tylenol) 650 mg PO Q6H PRN PRN Reason: Pain (Mild 1-3)/fever Albuterol (Ventolin Hfa) 0 gm INH Q4H PRN PRN Reason: Shortness of Breath Albuterol/Ipratropium (Duoneb 3.0-0.5 Mg/3 Ml) 3 ml NEB Q6HRRT [facility] Last Admin: 03/12/20 11:16 Dose: 3 ml Documented by: Clonidine HCl (Catapres) 0.1 mg PO BID [facility] Last Admin: 03/12/20 08:30 Dose: 0.1 mg Documented by: Diphenhydramine/Nystatin/Lidocaine (Magic Mouthwash) 5 ml PO QIDACANDBED [facility] Last Admin: 03/12/20 10:35 Dose: 5 ml Documented by: Heparin Sodium (Porcine) (Heparin Sodium) 5,000 units SUBCUT Q8H [facility] Last Admin: 03/12/20 05:44 Dose: 5,000 units Documented by: Levofloxacin/Dextrose 750 mg/ (Premix) 150 mls @ 100 mls/hr IV Q24H [facility] Last Admin: 03/11/20 21:17 Dose: 100 mls/hr Documented by: Ibuprofen (Motrin) 200 mg PO Q6H PRN PRN Reason: Pain (mild 1-3) Insulin Aspart (Novolog) 0 unit SUBCUT TIDAC [facility]; Protocol Last Admin: 10/02/20 07:33 Dose: Not Given Documented by: Lisinopril (Prinivil) 10 mg PO DAILY [facility] Last Admin: 03/12/20 08:31 Dose: 10 mg Documented by: Lorazepam (Ativan) 0.5 mg PO BID PRN PRN Reason: Anxiety Last Admin: 03/11/20 12:57 Dose: 0.5 mg Documented by: Methylprednisolone Sodium Succinate (Solu-Medrol) 80 mg IVPUSH Q12H [facility] Last Admin: 03/12/20 05:51 Dose: 80 mg Documented by: Omeprazole (Omeprazole) 20 mg PO ACBREAKFAST [facility] Last Admin: 03/12/20 07:30 Dose: 20 mg Documented by: Ondansetron HCl (Zofran) 4 mg PO Q6H PRN PRN Reason: Nausea Ondansetron HCl (Zofran) 4 mg IVPUSH Q4H PRN PRN Reason: Nausea Oxybutynin Chloride (Oxybutynin) 5 mg PO TID [facility] Last Admin: 03/12/20 05:48 Dose: 5 mg Documented by: Umeclidinium [place] [Incruse Ellipta*] 62.5mcg 1 each INH DAILY [facility] Last Admin: 03/12/20 08:33 Dose: 1 each Documented by: Simvastatin (Zocor) 10 mg PO BEDTIME [facility] Last Admin: 03/11/20 21:04 Dose: 10 mg Documented by: Sodium Chloride (Saline Flush) 10 ml FLUSH ASDIRECTED PRN PRN Reason: Keep Vein Open Last Admin: 03/10/20 13:20 Dose: 10 ml Documented by: Sodium Chloride (Saline Flush) 2.5 ml FLUSH ASDIRECTED PRN PRN Reason: Keep Vein Open Last Admin: 03/10/20 13:20 Dose: 2.5 ml Documented by: Venlafaxine HCl (Effexor Xr) 75 mg PO BID [facility] Last Admin: 03/12/20 08:31 Dose: 75 mg Documented by: Verapamil HCl (Calan) 40 mg PO TID [facility] Last Admin: 03/12/20 05:48 Dose: 40 mg Documented by: Discontinued Medications Albuterol (Proventil Hfa) 0 gm INH Q4H PRN PRN Reason: Shortness of Breath Albuterol/Ipratropium (Duoneb 3.0-0.5 Mg/3 Ml) 3 ml NEB ONETIME ONE Stop: 03/10/20 13:06 Last Admin: 03/10/20 13:19 Dose: 3 ml Documented by: Albuterol/Ipratropium (Duoneb 3.0-0.5 Mg/3 Ml) 3 ml NEB Q6HRRT [facility] Last Admin: 03/11/20 00:21 Dose: 3 ml Documented by: Fluconazole (Diflucan) 100 mg PO ONETIME ONE Stop: 03/12/20 10:01 Last Admin: 03/12/20 10:34 Dose: 100 mg Documented by: Sodium Chloride (Normal Saline) 1,000 mls @ 999 mls/hr IV .Bolus ONE Stop: 03/10/20 14:05 Last Admin: 03/10/20 13:20 Dose: 999 mls/hr Documented by: Magnesium Sulfate 2 gm/ Premix 50 mls @ 50 mls/hr IV ONETIME ONE Stop: 03/10/20 14:06 Last Admin: 03/10/20 13:19 Dose: 50 mls/hr Documented by: Levofloxacin/Dextrose 750 mg/ (Premix) 150 mls @ 100 mls/hr IV Q48H [facility] Last Admin: 03/10/20 22:34 Dose: 100 mls/hr Documented by: Lorazepam (Ativan) 0.5 mg IVPUSH ONETIME ONE Stop: 03/10/20 13:10 Last Admin: 03/10/20 13:19 Dose: 0.5 mg Documented by: Lorazepam (Ativan) 0.5 mg IVPUSH ONETIME ONE Stop: 03/10/20 14:38 Last Admin: 03/10/20 14:44 Dose: 0.5 mg Documented by: Methylprednisolone Sodium Succinate (Solu-Medrol) 125 mg IVPUSH ONETIME ONE Stop: 03/10/20 13:06 Last Admin: 03/10/20 13:19 Dose: 125 mg Documented by: Methylprednisolone Sodium Succinate (Solu-Medrol) 125 mg IVPUSH Q8H [facility] Last Admin: 03/11/20 05:27 Dose: 125 mg Documented by: Fluticasone Propionate [Flovent] 50mcg/Puff 1 each INH BID [facility] Last Admin: 03/11/20 08:20 Dose: Not Given Documented by: Terbutaline Sulfate (Brethine) 0.25 mg SUBCUT ONETIME ONE Stop: 03/10/20 13:08 Last Admin: 03/10/20 14:20 Dose: 0.25 mg Documented by:
== END 2020-03-12 12:15 | disposition home or self-care (01) ==
LOC: MW.ED 12:56 → MW.MS 15:11
PROVIDERS: ADMIT Internal Medicine; ATTEND Internal Medicine
DX: J44.0 Chronic obstructive pulmonary disease with (acute) lower respiratory infection (principal); J18.9 Pneumonia, unspecified organism; J44.1 Chronic obstructive pulmonary disease with (acute) exacerbation; I10 Essential (primary) hypertension; F41.9 Anxiety disorder, unspecified; B37.0 Candidal stomatitis; Z20.828 Contact with and (suspected) exposure to other viral communicable diseases; F32.9 Major depressive disorder, single episode, unspecified; F19.10 Other psychoactive substance abuse, uncomplicated; Z99.81 Dependence on supplemental oxygen; Z79.899 Other long term (current) drug therapy; Z87.891 Personal history of nicotine dependence; Z86.19 Personal history of other infectious and parasitic diseases
CPT/HCPCS: 36415; 36600; 71045; 71250; 80048; 80053; 80305; 81003; 82803; 82962; 83605; 83735; 83880; 84484; 85025; 85379; 85610; 85730; 86140; 93005; 94640; 94660; 96365; 96366; 96372; 96375; 96376; 99285; A9270; G0378; J1644; J1815; J1956; J2060; J2930; J3105; J3475; J7030; U0002; 93010; 99217; 99218; 99224; 99291; J7620-GY

== ENCOUNTER 2020-04-05 22:06 | Inpatient (IN) | payer MEDICARE, MEDICAID ==
[2020-04-05] MEDS ORDERED: Ketorolac 15 MG/ML SDV IVPUSH ONE (22:20)
[2020-04-05] MEDS ORDERED: Sodium Chloride 0.9% 10 ML Syringe FLUSH PRN (22:20)
[2020-04-05] MEDS ORDERED: Sodium Chloride 0.9% 2.5 ML Syringe FLUSH PRN (22:20)
--- NOTE | 2020-04-05 22:25 | EDM.PDOC ---
ED HPI GENERAL MEDICAL PROBLEM - General Chief Complaint: Abdominal Pain Stated Complaint: ems arrival Time Seen by Provider: 04/05/20 22:06 - History of Present Illness INITIAL COMMENTS - FREE TEXT/NARRATIVE: History of present illness: [] The patient was overwhelmed with weakness and diaphoresis. She slid to the floor. She could not get up and had horrible abdominal pain and continued since. She was diaphoretic nauseated has no change in bowel movements or urine. The patient says she is not using drugs. She says the drug screen was positive last time because she is around people using meth. She is moved out of that house and lives with a maid and a maid's daughter. The patient no longer uses drugs according to her. Severe COPD and multiple recent admissions which I have reviewed. Review of systems: As per history of present illness and below otherwise all systems reviewed and negative. Past medical history: As per history of present illness and as reviewed below otherwise noncontributory. Surgical history: As per history of present illness and as reviewed below otherwise noncontributory. Social history: No reported history of drug or alcohol abuse. Family history: As per history of present illness and as reviewed below otherwise noncontributory. Physical exam: Constitutional - well developed, well-nourished and in no acute distress HEENT - normocephalic, no evidence of trauma - external nose and mouth normal - no mass in neck and no JVD - mucosae moist EYES - full EOM, PERRL, no icterus - no evidence of inflammation, injection, or drainage Respiratory - no respiratory distress, equal bilateral expansion, lungs clear to auscultation and no abnormal lung sounds Cardiovascular - Regular Rhythm with S1 and S2 appreciated and no murmur, gallop or rub. GI -tender both lower quadrants. Abdomen soft without distension or organomegaly - normal bowel sounds - no guard or rebound Musculoskeletal no gross deformity of long bones or joints - no tenderness, swelling or edema Neurologic - Alert and oriented times four - CN II-XII grossly intact - motor sensory and coordination symmetrically normal Psychiatric - appropriate mood and affect with normal thought content Hematologic - No petechiae or purpura - mucosa appropriate color and sclera not pale - normal nail bed color and refill Integument -there are patches the nonblanching sleek coalescing red macula in the anterior supervisor paper coating tibial surface of both legs which are symmetric. No evidence of trauma - normal turgor Diagnostics: [] Therapeutics: [] Impression: [] Plan: [] Definitive disposition and diagnosis as appropriate pending reevaluation and review of above. Bilateral Lower Abdomen Pain Score (Numeric/FACES): 8 - Related Data Allergies Allergy/AdvReac Type Severity Reaction Status Date / Time No Known Allergies Allergy Verified 03/11/20 01:10 Home Meds: Home Meds Venlafaxine HCl [Venlafaxine ER] 150 mg PO BID 09/22/18 [History] cloNIDine [Catapres] 0.1 mg PO BID 09/22/18 [History] Umeclidinium Renick [Incruse Ellipta*] 1 puff IH DAILY 05/19/19 [History] Escitalopram [Lexapro] 20 mg PO DAILY 08/06/19 [History] Oxybutynin 5 mg PO TID 08/06/19 [History] lisinopriL [Zestril] 10 mg PO DAILY 08/06/19 [History] Simvastatin [Zocor] 10 mg PO BEDTIME 09/01/19 [History] Acetaminophen [Tylenol] 650 mg PO Q6H PRN #20 tablet 11/16/19 [Rx] Sucralfate [Carafate] 1 gm PO QIDACANDBED #120 tablet 11/16/19 [Rx] Hydrocodone/Acetaminophen [[place] 7.5-325 Tablet] 1 each PO Q4HR PRN #14 tablet 02/18/20 [Rx] Albuterol Sulfate [Albuterol Sulfate Hfa] 2 puff IH BID 03/01/20 [History] Budesonide/Formoterol [Symbicort 160-4.5 MCG] 1 puff INH BID 03/01/20 [History] LORazepam [Lorazepam] 0.5 mg PO BID PRN 03/01/20 [History] Ondansetron [Zofran] 4 mg PO Q6H PRN 03/01/20 [History] Verapamil [Calan] 40 mg PO TID 03/01/20 [History] Fluticasone Propionate 03/11/20 [History] Azithromycin 250 mg PO Q48H #14 tablet 03/12/20 [Rx] Diphenhyd/Lidocaine/Nystatin [Magic Mouthwash] 5 ml PO QIDACANDBED 10 Days #1 bottle 03/12/20 [Rx] levoFLOXacin [Levaquin] 750 mg PO DAILY #3 tab 03/12/20 [Rx] predniSONE [Prednisone] 10 - 40 mg PO DAILY #30 tablet 03/12/20 [Rx] Past Medical History - Past Health History Medical/Surgical History: Denies Medical/Surgical History HEENT History: Reports: None Other HEENT History: wears glasses Cardiovascular History: Reports: Hypertension Respiratory History: Reports: COPD, Other (See Below) Other Respiratory History: Home O2 @ 2LPM Gastrointestinal History: Reports: Diverticulosis Genitourinary History: Reports: Other (See Below) Other Genitourinary History: kidney stones MEDICAL RECEPTIONIST History: Reports: Musculoskeletal History: Reports: None Neurological History: Reports: None Psychiatric History: Reports: Addiction, Anxiety, Depression Endocrine/Metabolic History: Reports: None Insulin Pump Model and Rda: None Hematologic History: Reports: None Immunologic History: Reports: None Oncologic (Cancer) History: Reports: None Dermatologic History: Reports: None - Infectious Disease History Infectious Disease History: Reports: Hepatitis C Other Infectious Disease History: unsure of which kind of hepatitis - Past Surgical History Head Surgeries/Procedures: Reports: None HEENT Surgical History: Reports: None Cardiovascular Surgical History: Reports: None Respiratory Surgical History: Reports: None GI Surgical History: Reports: Appendectomy Female Surgical History: Reports: None Endocrine Surgical History: Reports: None Neurological Surgical History: Reports: None Musculoskeletal Surgical History: Reports: Other (See Below) Other Musculoskeletal Surgeries/Procedures:: rt shoulder surg Oncologic Surgical History: Reports: None Dermatological Surgical History: Reports: None Social & Family History - Family History Family Medical History: Noncontributory Respiratory: Reports: Asthma, COPD : Reports: Renal Disease/Insufficiency Psychiatric: Reports: Anxiety, Depression Endocrine/Metabolic: Reports: Diabetes, type II Oncologic: Reports: Hodgkin's Lymphoma - Caffeine Use Caffeine Use: Reports: Coffee, Soda Caffeine Use Comment: 4-5 cups a day - Recreational Drug Use Recreational Drug Use: Yes Drug Use in Last 12 Months: Yes Recreational Drug Type: Reports: Methamphetamine Recreational Drug Use Frequency: Weekly - Living Situation & Occupation Living situation: Reports: Single ED ROS GENERAL - Review of Systems Review Of Systems: Comprehensive ROS is negative, except as noted in HPI. ED EXAM, GENERAL - Physical Exam Exam: See Below Free Text/Narrative:: My physical exam is in the HPI Course - Vital Signs Text/Narrative:: This patient has no apparent focus of infection although she otherwise meets the criteria for sepsis. I will give her blood cultures and antibiotics and urine culture and they will look for source of infection. I will give her 30/kg of IV fluids and repeat her lactate. Required 1 breathing treatment while she was here because of her discomfort with some dyspnea. She takes these at home. She did not desaturate with her oxygen saturations which were normal. Because of the lab abnormalities the lactate was repeated and it came back to normal. The renal function however is worse than usual and may be strictly prerenal. Discussed with Dr. Young and admitted for observation to hydrate and repeat her labs in the morning. Last Recorded V/S: Last Vital Signs Temp 97.1 F 04/06/20 00:05 Pulse 84 04/06/20 00:05 Resp 20 04/06/20 00:05 BP 114/74 04/06/20 00:05 Pulse Ox 95 04/06/20 00:05 - Orders/Labs/Meds Orders: Active Orders 24 hr Category Date Time Status Admission Status [Patient Status] [ADT] Stat ADT 04/06/20 01:10 Ordered Communication Order [RC] STAT Care 04/05/20 23:28 Active RT Aerosol Therapy [RC] ASDIRECTED Care 04/06/20 00:56 Active CULTURE BLOOD [BC] Stat Lab 04/05/20 23:53 Received CULTURE BLOOD [BC] Stat Lab 04/05/20 23:58 Results CULTURE URINE [RM] Stat Lab 04/05/20 23:35 Received Sodium Chloride 0.9% [Saline Flush] Med 04/05/20 22:20 Active 10 ml FLUSH ASDIRECTED PRN Sodium Chloride 0.9% [Saline Flush] Med 04/05/20 22:20 Active 2.5 ml FLUSH ASDIRECTED PRN Blood Culture x2 Reflex Set [OM.PC] Stat Oth 04/05/20 23:34 Ordered Saline Lock Insert [OM.PC] Stat Oth 04/05/20 22:20 Ordered Medication Orders Sodium Chloride (Saline Flush) 10 ml FLUSH ASDIRECTED PRN PRN Reason: Keep Vein Open Sodium Chloride (Saline Flush) 2.5 ml FLUSH ASDIRECTED PRN PRN Reason: Keep Vein Open Labs: Laboratory Tests 04/05/20 04/05/20 04/05/20 Range/Units 22:20 22:20 22:20 WBC 23.60 H (4.0-11.0) K/uL RBC 4.66 (4.30-5.90) M/uL Hgb 12.7 (12.0-16.0) g/dL Hct 39.3 (36.0-46.0) % MCV 84.3 (80.0-98.0) fL MCH 27.3 (27.0-32.0) pg MCHC 32.3 (31.0-37.0) g/dL RDW Std Deviation 48.0 (28.0-62.0) fl RDW Coeff of Jamil 16 H (11.0-15.0) % Plt Count 359 (150-400) K/uL MPV 9.30 (7.40-12.00) fL Neut % (Auto) 88.4 H (48.0-80.0) % Lymph % (Auto) 5.6 L (16.0-40.0) % Harmon % (Auto) 6.0 (0.0-15.0) % Eos % (Auto) 0.0 (0.0-7.0) % Baso % (Auto) 0.0 (0.0-1.5) % Neut # (Auto) 20.8 H (1.4-5.7) K/uL Lymph # (Auto) 1.3 (0.6-2.4) K/uL Harmon # (Auto) 1.4 H (0.0-0.8) K/uL Eos # (Auto) 0.0 (0.0-0.7) K/uL Baso # (Auto) 0.0 (0.0-0.1) K/uL Nucleated RBC % 0.0 /100WBC Nucleated RBCs # 0 K/uL Lactate 2.2 H* (0.20-2.00) mmol/L Sodium 139 (136-145) mmol/L Potassium 4.9 (3.5-5.1) mmol/L Chloride 104 (98-107) mmol/L Carbon Dioxide 17.2 L (21.0-32.0) mmol/L BUN 50 H (7.0-18.0) mg/dL Creatinine 2.8 H (0.6-1.0) mg/dL Est Cr Clr Drug Dosing TNP Estimated GFR (MDRD) 17.1 ml/min Glucose 158 H (74-106) mg/dL Calcium 10.2 H (8.5-10.1) mg/dL Total Bilirubin 0.6 (0.2-1.0) mg/dL AST 30 (15-37) IU/L ALT 21 (14-63) IU/L Alkaline Phosphatase 191 H (46-116) U/L Total Protein 8.0 (6.4-8.2) g/dL Albumin 3.8 (3.4-5.0) g/dL Globulin 4.2 H (2.6-4.0) g/dL Albumin/Globulin Ratio 0.9 (0.9-1.6) Lipase 80 (73-393) U/L Urine Color Urine Appearance Urine pH (5.0-8.0) Ur Specific [place] (1.001-1.035) Urine Protein (NEGATIVE) mg/dL Urine Glucose (UA) (NEGATIVE) mg/dL Urine Ketones (NEGATIVE) mg/dL Urine Occult Blood (NEGATIVE) Urine Nitrite (NEGATIVE) Urine Bilirubin (NEGATIVE) Urine Ictotest Urine Urobilinogen (<2.0) EU/dL Ur Leukocyte Esterase (NEGATIVE) Urine RBC (0-2/HPF) Urine WBC (0-5/HPF) Ur Epithelial Cells (NONE-FEW) Amorphous Sediment (NEGATIVE) Urine Bacteria (NEGATIVE) Urine Mucus (NONE-MOD) Urine Yeast Urine Opiates Screen (NEGATIVE) Ur Oxycodone Screen (NEGATIVE) Urine Methadone Screen (NEGATIVE) Ur Barbiturates Screen (NEGATIVE) Ur Phencyclidine Scrn (NEGATIVE) Ur Amphetamine Screen (NEGATIVE) U Methamphetamines Scrn (NEGATIVE) U Benzodiazepines Scrn (NEGATIVE) U Cocaine Metab Screen (NEGATIVE) U Marijuana (THC) Screen (NEGATIVE) Ethyl Alcohol 4 mg/dL 04/05/20 04/05/20 04/06/20 Range/Units 23:35 23:35 00:55 WBC (4.0-11.0) K/uL RBC (4.30-5.90) M/uL Hgb (12.0-16.0) g/dL Hct (36.0-46.0) % MCV (80.0-98.0) fL MCH (27.0-32.0) pg MCHC (31.0-37.0) g/dL RDW Std Deviation (28.0-62.0) fl RDW Coeff of Jamil (11.0-15.0) % Plt Count (150-400) K/uL MPV (7.40-12.00) fL Neut % (Auto) (48.0-80.0) % Lymph % (Auto) (16.0-40.0) % Harmon % (Auto) (0.0-15.0) % Eos % (Auto) (0.0-7.0) % Baso % (Auto) (0.0-1.5) % Neut # (Auto) (1.4-5.7) K/uL Lymph # (Auto) (0.6-2.4) K/uL Harmon # (Auto) (0.0-0.8) K/uL Eos # (Auto) (0.0-0.7) K/uL Baso # (Auto) (0.0-0.1) K/uL Nucleated RBC % /100WBC Nucleated RBCs # K/uL Lactate 1.0 (0.20-2.00) mmol/L Sodium (136-145) mmol/L Potassium (3.5-5.1) mmol/L Chloride (98-107) mmol/L Carbon Dioxide (21.0-32.0) mmol/L BUN (7.0-18.0) mg/dL Creatinine (0.6-1.0) mg/dL Est Cr Clr Drug Dosing Estimated GFR (MDRD) ml/min Glucose (74-106) mg/dL Calcium (8.5-10.1) mg/dL Total Bilirubin (0.2-1.0) mg/dL AST (15-37) IU/L ALT (14-63) IU/L Alkaline Phosphatase (46-116) U/L Total Protein (6.4-8.2) g/dL Albumin (3.4-5.0) g/dL Globulin (2.6-4.0) g/dL Albumin/Globulin Ratio (0.9-1.6) Lipase (73-393) U/L Urine Color YELLOW Urine Appearance SLT CLOUDY Urine pH 5.0 (5.0-8.0) Ur Specific [place] >= 1.030 (1.001-1.035) Urine Protein 30 H (NEGATIVE) mg/dL Urine Glucose (UA) NEGATIVE (NEGATIVE) mg/dL Urine Ketones NEGATIVE (NEGATIVE) mg/dL Urine Occult Blood NEGATIVE (NEGATIVE) Urine Nitrite NEGATIVE (NEGATIVE) Urine Bilirubin SMALL H (NEGATIVE) Urine Ictotest NEGATIVE Urine Urobilinogen 0.2 (<2.0) EU/dL Ur Leukocyte Esterase TRACE H (NEGATIVE) Urine RBC 0-2 (0-2/HPF) Urine WBC 1-3 (0-5/HPF) Ur Epithelial Cells FEW (NONE-FEW) Amorphous Sediment LIGHT (NEGATIVE) Urine Bacteria FEW (NEGATIVE) Urine Mucus LIGHT (NONE-MOD) Urine Yeast MODERATE Urine Opiates Screen NEGATIVE (NEGATIVE) Ur Oxycodone Screen NEGATIVE (NEGATIVE) Urine Methadone Screen NEGATIVE (NEGATIVE) Ur Barbiturates Screen NEGATIVE (NEGATIVE) Ur Phencyclidine Scrn NEGATIVE (NEGATIVE) Ur Amphetamine Screen POSITIVE (NEGATIVE) U Methamphetamines Scrn POSITIVE (NEGATIVE) U Benzodiazepines Scrn NEGATIVE (NEGATIVE) U Cocaine Metab Screen NEGATIVE (NEGATIVE) U Marijuana (THC) Screen NEGATIVE (NEGATIVE) Ethyl Alcohol mg/dL Meds: Medications Generic Name Dose Route Start Last Admin Trade Name Freq PRN Reason Stop Dose Admin Sodium Chloride 10 ml 04/05/20 22:20 Saline Flush FLUSH ASDIRECTED PRN Keep Vein Open Sodium Chloride 2.5 ml 04/05/20 22:20 Saline Flush FLUSH ASDIRECTED PRN Keep Vein Open Discontinued Medications Generic Name Dose Route Start Last Admin Trade Name Freq PRN Reason Stop Dose Admin Albuterol/Ipratropium 3 ml 04/06/20 00:56 04/06/20 01:00 Duoneb 3.0-0.5 Mg/3 Ml NEB 04/06/20 00:57 3 ml ONETIME ONE Administration Albuterol/Ipratropium Confirm 04/06/20 00:56 04/06/20 01:00 Duoneb 3.0-0.5 Mg/3 Ml Administered 04/06/20 00:57 Not Given Dose 3 ml .ROUTE .STK-MED ONE Hydromorphone HCl 1 mg 04/05/20 23:28 04/05/20 23:34 Dilaudid IVPUSH 04/05/20 23:29 1 mg ONETIME ONE Administration Sodium Chloride 1,000 mls @ 999 mls/hr 04/05/20 23:25 04/05/20 23:32 Normal Saline IV 04/06/20 00:25 999 mls/hr .BOLUS ONE Administration Piperacillin Sod/Tazobactam 100 mls @ 100 mls/hr 04/05/20 23:35 04/06/20 00:01 Sod 4.5 gm/ Sodium Chloride IV 04/06/20 00:34 100 mls/hr ONETIME ONE Administration Sodium Chloride 1,000 mls @ 999 mls/hr 04/05/20 23:43 04/06/20 00:02 Normal Saline IV 04/06/20 00:43 999 mls/hr NOW STA Administration Ketorolac Tromethamine 15 mg 04/05/20 22:20 04/05/20 22:32 Toradol IVPUSH 04/05/20 22:21 15 mg ONETIME ONE Administration Departure - Departure Time of Disposition: 01:12 Disposition: Refer to Observation Condition: Good Clinical Impression: Abdominal pain, Acute renal failure, Dehydration COPD (chronic obstructive pulmonary disease) Qualifiers: COPD type: COPD with acute exacerbation Qualified Code(s): J44.1 - Chronic obstructive pulmonary disease with (acute) exacerbation - Discharge Information Referrals: PCP,None [Primary Care Provider] - Forms: ED Department Discharge Sepsis Event Note (ED) - Evaluation Sepsis Screening Result: No Definite Risk - Focused Exam Vital Signs: Vital Signs Temp Pulse Resp BP Pulse Ox 04/06/20 00:05 97.1 F 84 20 114/74 95 04/05/20 23:19 92 20 121/74 96 04/05/20 22:08 97.2 F 97 20 131/71 94 L - My Orders Last 24 Hours: My Active Orders 04/05/20 22:20 Sodium Chloride 0.9% [Saline Flush] 10 ml FLUSH ASDIRECTED PRN Sodium Chloride 0.9% [Saline Flush] 2.5 ml FLUSH ASDIRECTED PRN Saline Lock Insert [OM.PC] Stat 04/05/20 23:28 Communication Order [RC] STAT 04/05/20 23:34 Blood Culture x2 Reflex Set [OM.PC] Stat 04/05/20 23:35 CULTURE URINE [RM] Stat 04/05/20 23:53 CULTURE BLOOD [BC] Stat 04/05/20 23:58 CULTURE BLOOD [BC] Stat 04/06/20 00:56 RT Aerosol Therapy [RC] ASDIRECTED 04/06/20 01:10 Admission Status [Patient Status] [ADT] Stat - Assessment/Plan Last 24 Hours: My Active Orders 04/05/20 22:20 Sodium Chloride 0.9% [Saline Flush] 10 ml FLUSH ASDIRECTED PRN Sodium Chloride 0.9% [Saline Flush] 2.5 ml FLUSH ASDIRECTED PRN Saline Lock Insert [OM.PC] Stat 04/05/20 23:28 Communication Order [RC] STAT 04/05/20 23:34 Blood Culture x2 Reflex Set [OM.PC] Stat 04/05/20 23:35 CULTURE URINE [RM] Stat 04/05/20 23:53 CULTURE BLOOD [BC] Stat 04/05/20 23:58 CULTURE BLOOD [BC] Stat 04/06/20 00:56 RT Aerosol Therapy [RC] ASDIRECTED 04/06/20 01:10 Admission Status [Patient Status] [ADT] Stat
[2020-04-05 22:55] LABS: BLOOD UREA NITROGEN,BUN 50 mg/dL (7.0-18.0); CARBON DIOXIDE,CO2 17.2 mmol/L (21.0-32.0); CHLORIDE,CL 104 mmol/L (98-107); GLUCOSE RANDOM 158 mg/dL (74-106); LIPASE 80 U/L (73-393); POTASSIUM,K 4.9 mmol/L (3.5-5.1); SODIUM,NA 139 mmol/L (136-145)
[2020-04-05] MEDS ORDERED: Sodium Chloride 0.9% 1,000 ML IV ONE (23:25)
[2020-04-05] MEDS ORDERED: HYDROmorphone 1 MG/ML Syringe IVPUSH ONE (23:28)
[2020-04-05] MEDS ORDERED: Piperacillin/Tazobactam 4.5 GM in Sodium Chloride 0.9% 100 ML IV ONE (23:35)
[2020-04-05] MEDS ORDERED: Sodium Chloride 0.9% 1,000 ML IV STA (23:43)
--- NOTE | 2020-04-05 23:45 | CT ---
INDICATION: Abdominal pain and diaphoresis TECHNIQUE: CT Abdomen and pelvis without i.v. contrast. Coronal and sagittal reformats were obtained. COMPARISON: 11/13/2019 FINDINGS: Lower chest: Mild lingular atelectasis or scarring is noted. Liver: Unremarkable. Spleen: Unremarkable. Pancreas: Unremarkable. Gallbladder: Unremarkable. Kidney: There is a stable low-density lesion in upper pole left kidney measuring 2.2 cm. Adrenal: Unremarkable. Bowel: Mild sigmoid diverticulosis is present with no evidence of diverticulitis. The colon is diffusely collapsed and difficult to evaluate. The appendix cannot be identified but there are no inflammatory changes noted in the right lower quadrant. Vascular: Unremarkable. Lymph: Unremarkable. Peritoneum: Unremarkable. No pneumoperitoneum is seen. No significant ascites is noted. Pelvis: Unremarkable. Soft tissue: Unremarkable. Bone: Unremarkable for age. IMPRESSION: 1. Unremarkable with no CT correlate for the patient`s symptoms seen. Dictated by Joaquin Richardson MD @ 04/05/2020 11:43:20 PM Please note that all CT scans at this facility use dose modulation, iterative reconstruction, and/or weight-based dosing when appropriate to reduce radiation dose to as low as reasonably achievable. Dictated by: Joaquin Richardson MD @ 04/05/2020 23:43:54 (Electronically Signed)
--- NOTE | 2020-04-06 00:27 | CR ---
INDICATION: Leukocytosis TECHNIQUE: Chest radiograph 1 view COMPARISON: 03/10/2020 FINDINGS: Mediastinum: The mediastinum is normal in appearance. The heart silhouette is normal in size and morphology. Lung: The airspace infiltrates in the left perihilar region have decreased with residual linear scarring seen. Bilateral pulmonary hyperinflation and lucency noted, suggestive of severe, stable pulmonary emphysema. No sign of pleural effusion seen. No pneumothorax is identified. Bone and Soft tissue: Unremarkable for age. IMPRESSIONS: 1. The airspace infiltrates in the left perihilar region have decreased with residual linear scarring seen. 2. Bilateral pulmonary hyperinflation and lucency noted, suggestive of severe, stable pulmonary emphysema. Dictated by Joaquin Richardson MD @ 04/06/2020 12:25:20 AM Dictated by: Joaqiun Richardson MD @ 04/06/2020 00:25:22 (Electronically Signed)
[2020-04-06] MEDS ORDERED: Albuterol/Ipratropium 3.0-0.5 MG/3 ML Neb Soln NEB ONE (00:56)
[2020-04-06] MEDS ORDERED: Albuterol/Ipratropium 3.0-0.5 MG/3 ML Neb Soln ONE (00:56)
[2020-04-06] MEDS ORDERED: Ondansetron 4 MG/2 ML SDV IVPUSH PRN (03:55)
[2020-04-06] MEDS: Lactated Ringers 1,000 ML IV SCH ×3 (04:10→23:32)
[2020-04-06] MEDS: Morphine 2 MG/ML SYRINGE IVPUSH PRN ×4 (04:19→20:06)
[2020-04-06 07:21] LABS: CARBON DIOXIDE,CO2 17.9 mmol/L (21.0-32.0); POTASSIUM,K 4.6 mmol/L (3.5-5.1)
[2020-04-06] MEDS: Piperacillin/Tazobactam 2.25 GM in Sodium Chloride 0.9% 50 ML IV SCH ×3 (08:32→20:04)
--- NOTE | 2020-04-06 08:45 | PCM.HP.2 ---
<Evangelist Vernon M - Last Filed: 04/06/20 14:52> H&P History of Present Illness - General Date of Service: 04/06/20 Admit Problem/Dx: Admission Diagnosis/Problem Admission Diagnosis/Problem Dehydration Source of Information: Patient History Limitations: Reports: No Limitations - History of Present Illness Initial Comments - Free Text/Narative: 64-year-old female presents with abdominal pain for the past 1 day. She has a PMH of COPD on home oxygen (2L), HTN, diverticulosis, peptic ulcer disease, anxiety, depression and hepatitis C. Patient reports that her abdominal pain started yesterday evening, is primarily in her lower abdomen and she has had bloody stools. She has also had some mild nausea, sweats and vomiting. Patient denies using any drugs, drinks alcohol occasionally and does not smoke tobacco. Reports that she used drugs in the past. In the ER, WBC 23, Creatinine 2.2 and lactate level 2.2. Patient received 2 L of IV NS bolus and repeat lactate was normal. CXR showed severe emphysema. CT abdomen/pelvis was unremarkable. UDS was positive for methamphetamines/amphetamines. Blood cultures obtained and patient started on IV zosyn. She was admitted for further evaluation and treatment. Bilateral Lower Abdomen Pain Score (Numeric/FACES): 8 - Related Data Allergies/Adverse Reactions: Allergies Allergy/AdvReac Type Severity Reaction Status Date / Time No Known Allergies Allergy Verified 04/06/20 03:11 Home Medications: Home Meds Venlafaxine HCl [Venlafaxine ER] 150 mg PO DAILY 09/22/18 [History] cloNIDine [Catapres] 0.1 mg PO BID 09/22/18 [History] Umeclidinium [place] [Incruse Ellipta*] 1 puff IH DAILY 05/19/19 [History] Escitalopram [Lexapro] 20 mg PO DAILY 08/06/19 [History] Oxybutynin 5 mg PO BID 08/06/19 [History] lisinopriL [Zestril] 10 mg PO DAILY 08/06/19 [History] Simvastatin [Zocor] 10 mg PO BEDTIME 09/01/19 [History] Acetaminophen [Tylenol] 650 mg PO Q6H PRN #20 tablet 11/16/19 [Rx] Sucralfate [Carafate] 1 gm PO QIDACANDBED #120 tablet 11/16/19 [Rx] Hydrocodone/Acetaminophen [[place] 7.5-325 Tablet] 1 each PO Q4HR PRN #14 tablet 02/18/20 [Rx] Albuterol Sulfate [Albuterol Sulfate Hfa] 2 puff IH BID 03/01/20 [History] Budesonide/Formoterol [Symbicort 160-4.5 MCG] 1 puff INH BID 03/01/20 [History] LORazepam [Lorazepam] 0.5 mg PO BID PRN 03/01/20 [History] Ondansetron [Zofran] 4 mg PO Q6H PRN 03/01/20 [History] Verapamil [Calan] 40 mg PO TID 03/01/20 [History] Fluticasone Propionate 03/11/20 [History] Azithromycin 250 mg PO Q48H #14 tablet 03/12/20 [Rx] levoFLOXacin [Levaquin] 750 mg PO DAILY #3 tab 03/12/20 [Rx] predniSONE [Prednisone] 10 - 40 mg PO DAILY #30 tablet 03/12/20 [Rx] Diphenhyd/Lidocaine/Nystatin [Magic Mouthwash] 5 ml PO QIDACANDBED PRN 04/06/20 [History] Omeprazole 20 mg PO DAILY 04/06/20 [History] Past Medical History - Past Health History Medical/Surgical History: Denies Medical/Surgical History HEENT History: Reports: None Other HEENT History: wears glasses Cardiovascular History: Reports: Hypertension Respiratory History: Reports: COPD, Other (See Below) Other Respiratory History: Home O2 @ 2LPM Gastrointestinal History: Reports: Diverticulosis Genitourinary History: Reports: Other (See Below) Other Genitourinary History: kidney stones HISTOLOGY MANAGER History: Reports: Musculoskeletal History: Reports: None Neurological History: Reports: None Psychiatric History: Reports: Addiction, Anxiety, Depression Endocrine/Metabolic History: Reports: None Insulin Pump Model and Tow Feeder: None Hematologic History: Reports: None Immunologic History: Reports: None Oncologic (Cancer) History: Reports: None Dermatologic History: Reports: None - Infectious Disease History Infectious Disease History: Reports: Hepatitis C Other Infectious Disease History: unsure of which kind of hepatitis - Past Surgical History Head Surgeries/Procedures: Reports: None HEENT Surgical History: Reports: None Cardiovascular Surgical History: Reports: None Respiratory Surgical History: Reports: None GI Surgical History: Reports: Appendectomy Female Surgical History: Reports: None Endocrine Surgical History: Reports: None Neurological Surgical History: Reports: None Musculoskeletal Surgical History: Reports: Other (See Below) Other Musculoskeletal Surgeries/Procedures:: rt shoulder surg Oncologic Surgical History: Reports: None Dermatological Surgical History: Reports: None Social & Family History - Family History Family Medical History: Noncontributory Respiratory: Reports: Asthma, COPD : Reports: Renal Disease/Insufficiency Psychiatric: Reports: Anxiety, Depression Endocrine/Metabolic: Reports: Diabetes, type II Oncologic: Reports: Hodgkin's Lymphoma - Tobacco Use Tobacco Use Status *Q: Former Tobacco User Years of Tobacco use: 40 Used Tobacco, but Quit: Yes Month/Year Tobacco Last Used: 2018 - Caffeine Use Caffeine Use: Reports: Coffee, Soda Caffeine Use Comment: 4-5 cups a day - Recreational Drug Use Recreational Drug Use: Yes Drug Use in Last 12 Months: Yes Recreational Drug Type: Reports: Opium Recreational Drug Use Frequency: Not Used In Over 1 Month - Living Situation & Occupation Living situation: Reports: Single H&P Review of Systems - Review of Systems: Review Of Systems: Comprehensive ROS is negative, except as noted in HPI. Exam - Exam Exam: See Below - Vital Signs Vital Signs: Last Vital Signs Temp 36.4 C 04/06/20 03:06 Pulse 86 04/06/20 03:06 Resp 20 04/06/20 00:05 BP 104/69 04/06/20 03:06 Pulse Ox 92 L 04/06/20 03:06 Weight: 57.788 kg - Exam General: Alert, Oriented, Cooperative, Moderate Distress HEENT: Conjunctiva Clear, Hearing Intact, Pupils Equal, Pupils Reactive Lungs: Wheezing Cardiovascular: Regular Rate, Regular Rhythm GI/Abdominal Exam: Normal Bowel Sounds, Soft, No Distention, Other (mild suprapubic ttp). No: Guarding, Rigid Extremities: Normal Inspection, No Pedal Edema - Patient Data Lab Results Last 24 hrs: Laboratory Results - last 24 hr 04/05/20 04/05/20 04/05/20 Range/Units 22:20 22:20 22:20 WBC 23.60 H (4.0-11.0) K/uL RBC 4.66 (4.30-5.90) M/uL Hgb 12.7 (12.0-16.0) g/dL Hct 39.3 (36.0-46.0) % MCV 84.3 (80.0-98.0) fL MCH 27.3 (27.0-32.0) pg MCHC 32.3 (31.0-37.0) g/dL RDW Std Deviation 48.0 (28.0-62.0) fl RDW Coeff of Jamil 16 H (11.0-15.0) % Plt Count 359 (150-400) K/uL MPV 9.30 (7.40-12.00) fL Neut % (Auto) 88.4 H (48.0-80.0) % Lymph % (Auto) 5.6 L (16.0-40.0) % [place] % (Auto) 6.0 (0.0-15.0) % Eos % (Auto) 0.0 (0.0-7.0) % Baso % (Auto) 0.0 (0.0-1.5) % Neut # (Auto) 20.8 H (1.4-5.7) K/uL Lymph # (Auto) 1.3 (0.6-2.4) K/uL [place] # (Auto) 1.4 H (0.0-0.8) K/uL Eos # (Auto) 0.0 (0.0-0.7) K/uL Baso # (Auto) 0.0 (0.0-0.1) K/uL Nucleated RBC % 0.0 /100WBC Nucleated RBCs # 0 K/uL Lactate 2.2 H* (0.20-2.00) mmol/L Sodium 139 (136-145) mmol/L Potassium 4.9 (3.5-5.1) mmol/L Chloride 104 (98-107) mmol/L Carbon Dioxide 17.2 L (21.0-32.0) mmol/L BUN 50 H (7.0-18.0) mg/dL Creatinine 2.8 H (0.6-1.0) mg/dL Est Cr Clr Drug Dosing TNP Estimated GFR (MDRD) 17.1 ml/min Glucose 158 H (74-106) mg/dL Calcium 10.2 H (8.5-10.1) mg/dL Phosphorus (2.6-4.7) mg/dL Magnesium (1.8-2.4) mg/dL Total Bilirubin 0.6 (0.2-1.0) mg/dL AST 30 (15-37) IU/L ALT 21 (14-63) IU/L Alkaline Phosphatase 191 H (46-116) U/L Total Protein 8.0 (6.4-8.2) g/dL Albumin 3.8 (3.4-5.0) g/dL Globulin 4.2 H (2.6-4.0) g/dL Albumin/Globulin Ratio 0.9 (0.9-1.6) Lipase 80 (73-393) U/L Urine Color Urine Appearance Urine pH (5.0-8.0) Ur Specific [place] (1.001-1.035) Urine Protein (NEGATIVE) mg/dL Urine Glucose (UA) (NEGATIVE) mg/dL Urine Ketones (NEGATIVE) mg/dL Urine Occult Blood (NEGATIVE) Urine Nitrite (NEGATIVE) Urine Bilirubin (NEGATIVE) Urine Ictotest Urine Urobilinogen (<2.0) EU/dL Ur Leukocyte Esterase (NEGATIVE) Urine RBC (0-2/HPF) Urine WBC (0-5/HPF) Ur Epithelial Cells (NONE-FEW) Amorphous Sediment (NEGATIVE) Urine Bacteria (NEGATIVE) Urine Mucus (NONE-MOD) Urine Yeast Urine Opiates Screen (NEGATIVE) Ur Oxycodone Screen (NEGATIVE) Urine Methadone Screen (NEGATIVE) Ur Barbiturates Screen (NEGATIVE) Ur Phencyclidine Scrn (NEGATIVE) Ur Amphetamine Screen (NEGATIVE) U Methamphetamines Scrn (NEGATIVE) U Benzodiazepines Scrn (NEGATIVE) U Cocaine Metab Screen (NEGATIVE) U Marijuana (THC) Screen (NEGATIVE) Ethyl Alcohol 4 mg/dL SARS-CoV-2 RNA (ONOFRE) (NEGATIVE) 04/05/20 04/05/20 04/06/20 Range/Units 23:35 23:35 00:55 WBC (4.0-11.0) K/uL RBC (4.30-5.90) M/uL Hgb (12.0-16.0) g/dL Hct (36.0-46.0) % MCV (80.0-98.0) fL MCH (27.0-32.0) pg MCHC (31.0-37.0) g/dL RDW Std Deviation (28.0-62.0) fl RDW Coeff of Jamil (11.0-15.0) % Plt Count (150-400) K/uL MPV (7.40-12.00) fL Neut % (Auto) (48.0-80.0) % Lymph % (Auto) (16.0-40.0) % [place] % (Auto) (0.0-15.0) % Eos % (Auto) (0.0-7.0) % Baso % (Auto) (0.0-1.5) % Neut # (Auto) (1.4-5.7) K/uL Lymph # (Auto) (0.6-2.4) K/uL [place] # (Auto) (0.0-0.8) K/uL Eos # (Auto) (0.0-0.7) K/uL Baso # (Auto) (0.0-0.1) K/uL Nucleated RBC % /100WBC Nucleated RBCs # K/uL Lactate 1.0 (0.20-2.00) mmol/L Sodium (136-145) mmol/L Potassium (3.5-5.1) mmol/L Chloride (98-107) mmol/L Carbon Dioxide (21.0-32.0) mmol/L BUN (7.0-18.0) mg/dL Creatinine (0.6-1.0) mg/dL Est Cr Clr Drug Dosing Estimated GFR (MDRD) ml/min Glucose (74-106) mg/dL Calcium (8.5-10.1) mg/dL Phosphorus (2.6-4.7) mg/dL Magnesium (1.8-2.4) mg/dL Total Bilirubin (0.2-1.0) mg/dL AST (15-37) IU/L ALT (14-63) IU/L Alkaline Phosphatase (46-116) U/L Total Protein (6.4-8.2) g/dL Albumin (3.4-5.0) g/dL Globulin (2.6-4.0) g/dL Albumin/Globulin Ratio (0.9-1.6) Lipase (73-393) U/L Urine Color YELLOW Urine Appearance SLT CLOUDY Urine pH 5.0 (5.0-8.0) Ur Specific [place] >= 1.030 (1.001-1.035) Urine Protein 30 H (NEGATIVE) mg/dL Urine Glucose (UA) NEGATIVE (NEGATIVE) mg/dL Urine Ketones NEGATIVE (NEGATIVE) mg/dL Urine Occult Blood NEGATIVE (NEGATIVE) Urine Nitrite NEGATIVE (NEGATIVE) Urine Bilirubin SMALL H (NEGATIVE) Urine Ictotest NEGATIVE Urine Urobilinogen 0.2 (<2.0) EU/dL Ur Leukocyte Esterase TRACE H (NEGATIVE) Urine RBC 0-2 (0-2/HPF) Urine WBC 1-3 (0-5/HPF) Ur Epithelial Cells FEW (NONE-FEW) Amorphous Sediment LIGHT (NEGATIVE) Urine Bacteria FEW (NEGATIVE) Urine Mucus LIGHT (NONE-MOD) Urine Yeast MODERATE Urine Opiates Screen NEGATIVE (NEGATIVE) Ur Oxycodone Screen NEGATIVE (NEGATIVE) Urine Methadone Screen NEGATIVE (NEGATIVE) Ur Barbiturates Screen NEGATIVE (NEGATIVE) Ur Phencyclidine Scrn NEGATIVE (NEGATIVE) Ur Amphetamine Screen POSITIVE (NEGATIVE) U Methamphetamines Scrn POSITIVE (NEGATIVE) U Benzodiazepines Scrn NEGATIVE (NEGATIVE) U Cocaine Metab Screen NEGATIVE (NEGATIVE) U Marijuana (THC) Screen NEGATIVE (NEGATIVE) Ethyl Alcohol mg/dL SARS-CoV-2 RNA (ONOFRE) (NEGATIVE) 04/06/20 04/06/20 04/06/20 Range/Units 01:15 06:30 06:30 WBC 14.39 H (4.0-11.0) K/uL RBC 3.69 L (4.30-5.90) M/uL Hgb 9.9 L (12.0-16.0) g/dL Hct 31.0 L (36.0-46.0) % MCV 84.0 (80.0-98.0) fL MCH 26.8 L (27.0-32.0) pg MCHC 31.9 (31.0-37.0) g/dL RDW Std Deviation 48.2 (28.0-62.0) fl RDW Coeff of Jamil 16 H (11.0-15.0) % Plt Count 267 (150-400) K/uL MPV 9.30 (7.40-12.00) fL Neut % (Auto) 78.1 (48.0-80.0) % Lymph % (Auto) 13.1 L (16.0-40.0) % [place] % (Auto) 8.4 (0.0-15.0) % Eos % (Auto) 0.3 (0.0-7.0) % Baso % (Auto) 0.1 (0.0-1.5) % Neut # (Auto) 11.3 H (1.4-5.7) K/uL Lymph # (Auto) 1.9 (0.6-2.4) K/uL [place] # (Auto) 1.2 H (0.0-0.8) K/uL Eos # (Auto) 0.0 (0.0-0.7) K/uL Baso # (Auto) 0.0 (0.0-0.1) K/uL Nucleated RBC % 0.0 /100WBC Nucleated RBCs # 0 K/uL Lactate (0.20-2.00) mmol/L Sodium 138 (136-145) mmol/L Potassium 4.6 (3.5-5.1) mmol/L Chloride 107 (98-107) mmol/L Carbon Dioxide 17.9 L (21.0-32.0) mmol/L BUN 47 H (7.0-18.0) mg/dL Creatinine 2.2 H (0.6-1.0) mg/dL Est Cr Clr Drug Dosing 23.88 Estimated GFR (MDRD) 22.5 ml/min Glucose 92 (74-106) mg/dL Calcium 8.8 (8.5-10.1) mg/dL Phosphorus 5.7 H (2.6-4.7) mg/dL Magnesium 1.8 (1.8-2.4) mg/dL Total Bilirubin 0.3 (0.2-1.0) mg/dL AST 26 (15-37) IU/L ALT 18 (14-63) IU/L Alkaline Phosphatase 122 H (46-116) U/L Total Protein 6.4 (6.4-8.2) g/dL Albumin 3.0 L (3.4-5.0) g/dL Globulin 3.4 (2.6-4.0) g/dL Albumin/Globulin Ratio 0.9 (0.9-1.6) Lipase (73-393) U/L Urine Color Urine Appearance Urine pH (5.0-8.0) Ur Specific [place] (1.001-1.035) Urine Protein (NEGATIVE) mg/dL Urine Glucose (UA) (NEGATIVE) mg/dL Urine Ketones (NEGATIVE) mg/dL Urine Occult Blood (NEGATIVE) Urine Nitrite (NEGATIVE) Urine Bilirubin (NEGATIVE) Urine Ictotest Urine Urobilinogen (<2.0) EU/dL Ur Leukocyte Esterase (NEGATIVE) Urine RBC (0-2/HPF) Urine WBC (0-5/HPF) Ur Epithelial Cells (NONE-FEW) Amorphous Sediment (NEGATIVE) Urine Bacteria (NEGATIVE) Urine Mucus (NONE-MOD) Urine Yeast Urine Opiates Screen (NEGATIVE) Ur Oxycodone Screen (NEGATIVE) Urine Methadone Screen (NEGATIVE) Ur Barbiturates Screen (NEGATIVE) Ur Phencyclidine Scrn (NEGATIVE) Ur Amphetamine Screen (NEGATIVE) U Methamphetamines Scrn (NEGATIVE) U Benzodiazepines Scrn (NEGATIVE) U Cocaine Metab Screen (NEGATIVE) U Marijuana (THC) Screen (NEGATIVE) Ethyl Alcohol mg/dL SARS-CoV-2 RNA (ONOFRE) NEGATIVE (NEGATIVE) Result Diagrams: 04/06/20 06:30 04/06/20 06:30 Ryan Results Last 24 hrs: Microbiology 04/05/20 23:58 Anaerobic Blood Culture - Final Blood - Venous - Lab Draw Sepsis Event Note - Evaluation Sepsis Screening Result: No Definite Risk - Focused Exam Vital Signs: Vital Signs Temp Pulse Resp BP BP Pulse Ox 04/06/20 03:06 36.4 C 86 104/69 92 L 04/06/20 00:05 36.2 C 84 20 114/74 95 04/05/20 23:19 92 20 121/74 96 04/05/20 22:08 36.2 C 97 20 131/71 94 L - Problem List (1) Abdominal pain SNOMED Code(s): 60419789 ICD Code: R10.9 - UNSPECIFIED ABDOMINAL PAIN Status: Acute Current Visit: Yes (2) Bloody stool SNOMED Code(s): 012766539 ICD Code: K92.1 - MELENA Status: Acute Current Visit: Yes (3) Acute renal failure SNOMED Code(s): 33805610 ICD Code: N17.9 - ACUTE KIDNEY FAILURE, UNSPECIFIED Status: Acute Current Visit: Yes (4) COPD (chronic obstructive pulmonary disease) SNOMED Code(s): 78067327 ICD Code: J44.9 - CHRONIC OBSTRUCTIVE PULMONARY DISEASE, UNSPECIFIED Status: Chronic Current Visit: Yes Qualifiers: COPD type: COPD with acute exacerbation Qualified Code(s): J44.1 - Chronic obstructive pulmonary disease with (acute) exacerbation (5) Anxiety SNOMED Code(s): 48441114 ICD Code: F41.9 - ANXIETY DISORDER, UNSPECIFIED Status: Chronic Current Visit: No (6) Depression SNOMED Code(s): 63883630 ICD Code: F32.9 - MAJOR DEPRESSIVE DISORDER, SINGLE EPISODE, UNSPECIFIED Status: Chronic Current Visit: No Qualifiers: Depression Type: unspecified Qualified Code(s): F32.9 - Major depressive disorder, single episode, unspecified Problem List Initiated/Reviewed/Updated: Yes Orders Last 24hrs: Active Orders 24 hr Category Date Time Status Admission Status [Patient Status] [ADT] Stat ADT 04/06/20 01:10 Active Ambulate [RC] ASDIRECTED Care 04/06/20 03:50 Active Antiembolic Devices [RC] PER UNIT ROUTINE Care 04/06/20 03:52 Active Communication Order [RC] STAT Care 04/05/20 23:28 Active Oxygen Therapy Adult [Oxygen Therapy] [RC] ASDIRECTED Care 04/06/20 03:56 Active RT Aerosol Therapy [RC] ASDIRECTED Care 04/06/20 00:56 Active RT Aerosol Therapy [RC] ASDIRECTED Care 04/06/20 03:56 Active Vital Signs [RC] Q4H Care 04/06/20 07:30 Active Clear Liquid Diet [DIET] Diet 04/06/20 Breakfast Active CULTURE BLOOD [BC] Stat Lab 04/05/20 23:53 Received CULTURE BLOOD [BC] Stat Lab 04/05/20 23:58 Results CULTURE URINE [RM] Stat Lab 04/05/20 23:35 Received Albuterol/Ipratropium [DuoNeb 3.0-0.5 MG/3 ML] Med 04/06/20 03:56 Active 3 ml NEB Q4HRRT PRN Lactated Ringers [Ringers, Lactated] 1,000 ml Med 04/06/20 04:00 Active IV ASDIRECTED Morphine Med 04/06/20 03:54 Active 1 mg IVPUSH Q4H PRN Ondansetron [Zofran] Med 04/06/20 03:55 Active 4 mg IVPUSH Q4H PRN Pantoprazole [ProTONIX IV] 40 mg Med 04/06/20 09:00 Active Sodium Chloride 0.9% [Normal Saline] 10 ml IV DAILY Piperacillin/Tazobactam [Zosyn] 2.25 gm Med 04/06/20 08:00 Active Sodium Chloride 0.9% [Normal Saline] 50 ml IV Q6H Sodium Chloride 0.9% [Saline Flush] Med 04/05/20 22:20 Active 10 ml FLUSH ASDIRECTED PRN Sodium Chloride 0.9% [Saline Flush] Med 04/05/20 22:20 Active 2.5 ml FLUSH ASDIRECTED PRN Blood Culture x2 Reflex Set [OM.PC] Stat Oth 04/05/20 23:34 Ordered SCD [Sequential Compression Device] [OM.PC] Routine Oth 04/06/20 03:52 Ordered Saline Lock Insert [OM.PC] Stat Ot 04/05/20 22:20 Ordered Medication Orders Albuterol/Ipratropium (Duoneb 3.0-0.5 Mg/3 Ml) 3 ml NEB Q4HRRT PRN PRN Reason: Shortness of Breath Lactated Ringer's (Ringers, Lactated) 1,000 mls @ 125 mls/hr IV ASDIRECTED [facility] Last Admin: 04/06/20 04:10 Dose: 125 mls/hr Documented by: HARPREET Pantoprazole Sodium 40 mg/ (Sodium Chloride) 10 mls @ 300 mls/hr IV DAILY [facility] Last Admin: 04/06/20 08:32 Dose: 300 mls/hr Documented by: PROFLUC Piperacillin Sod/Tazobactam (Sod 2.25 gm/ Sodium Chloride) 50 mls @ 100 mls/hr IV Q6H [facility] Last Admin: 04/06/20 08:32 Dose: 100 mls/hr Documented by: PROFGEOFF Morphine Sulfate (Morphine) 1 mg IVPUSH Q4H PRN PRN Reason: Pain Last Admin: 04/06/20 08:18 Dose: 1 mg Documented by: Admin: 04/06/20 04:19 Dose: 1 mg Documented by: HARPREET Ondansetron HCl (Zofran) 4 mg IVPUSH Q4H PRN PRN Reason: Nausea/Vomiting Sodium Chloride (Saline Flush) 10 ml FLUSH ASDIRECTED PRN PRN Reason: Keep Vein Open Sodium Chloride (Saline Flush) 2.5 ml FLUSH ASDIRECTED PRN PRN Reason: Keep Vein Open Assessment/Plan Comment:: Assessment and Plan: 1. Abdominal pain with bloody stool: - Admit to med/surg. CT abd/pelvis was unremarkable. UDS positive for methamphetamines/amphetamines. Will keep patient NPO, IV LR @ 125 cc/hr, IV PPI BID and Carafate TID. WBC count is downtrending. Patient on IV zosyn and blood cultures pending. Morphine prn pain. UA was unremarkable. Stool was Hemoccult positive. General surgery consulted and appreciate recommendations. 2. Chronic hypoxic respiratory failure secondary to COPD: - Continue supplemental oxygen PRN to maintain O2 sat > 88%. Continue home inhalers and duonebs prn. - Home oxygen baseline requirement is 2 L. - CXR showed severe emphysema. 3. ALICIA, improving: - Continue IV fluids and will monitor with AM labs. 4. DVT prophylaxis: SCD's secondary to #1. 5. Past medical history of: HTN, diverticulosis, peptic ulcer disease, anxiety, depression and hepatitis C: - Continue home medications. <Wisam Young - Last Filed: 04/08/20 13:03> H&P History of Present Illness - General Admit Problem/Dx: Admission Diagnosis/Problem Admission Diagnosis/Problem Dehydration Exam - Vital Signs Vital Signs: Last Vital Signs Temp 36.3 C 04/08/20 11:00 Pulse 65 04/08/20 11:00 Resp 16 04/08/20 11:00 BP 136/78 04/08/20 11:00 Pulse Ox 98 04/08/20 11:00 - Patient Data Lab Results Last 24 hrs: Laboratory Results - last 24 hr 04/07/20 04/08/20 04/08/20 Range/Units 16:43 05:37 05:37 WBC 7.86 (4.0-11.0) K/uL RBC 3.34 L (4.30-5.90) M/uL Hgb 9.1 L (12.0-16.0) g/dL Hct 28.7 L (36.0-46.0) % MCV 85.9 (80.0-98.0) fL MCH 27.2 (27.0-32.0) pg MCHC 31.7 (31.0-37.0) g/dL RDW Std Deviation 51.2 (28.0-62.0) fl RDW Coeff of Jamil 16 H (11.0-15.0) % Plt Count 204 (150-400) K/uL MPV 9.10 (7.40-12.00) fL Neut % (Auto) 58.5 (48.0-80.0) % Lymph % (Auto) 27.9 (16.0-40.0) % [place] % (Auto) 9.9 (0.0-15.0) % Eos % (Auto) 3.6 (0.0-7.0) % Baso % (Auto) 0.1 (0.0-1.5) % Neut # (Auto) 4.6 (1.4-5.7) K/uL Lymph # (Auto) 2.2 (0.6-2.4) K/uL [place] # (Auto) 0.8 (0.0-0.8) K/uL Eos # (Auto) 0.3 (0.0-0.7) K/uL Baso # (Auto) 0.0 (0.0-0.1) K/uL Nucleated RBC % 0.0 /100WBC Nucleated RBCs # 0 K/uL Sodium 141 (136-145) mmol/L Potassium 3.8 (3.5-5.1) mmol/L Chloride 106 (98-107) mmol/L Carbon Dioxide 26.2 (21.0-32.0) mmol/L BUN 14 (7.0-18.0) mg/dL Creatinine 1.0 (0.6-1.0) mg/dL Est Cr Clr Drug Dosing 52.53 mL/min Estimated GFR (MDRD) 56.0 ml/min Glucose 78 (74-106) mg/dL POC Glucose 130 H (60-110) mg/dL Calcium 8.0 L (8.5-10.1) mg/dL Total Bilirubin 0.3 (0.2-1.0) mg/dL AST 15 (15-37) IU/L ALT 12 L (14-63) IU/L Alkaline Phosphatase 75 (46-116) U/L Total Protein 5.2 L (6.4-8.2) g/dL Albumin 2.2 L (3.4-5.0) g/dL Globulin 3.0 (2.6-4.0) g/dL Albumin/Globulin Ratio 0.7 L (0.9-1.6) Result Diagrams: 04/08/20 05:37 04/08/20 05:37 Ryan Results Last 24 hrs: Microbiology 04/07/20 11:25 Cryptosporidium/Giardia - Final Stool / Feces 04/07/20 11:25 Shiga Toxin I & II - Final Stool / Feces 04/05/20 23:58 Aerobic Blood Culture - Preliminary Blood - Venous - Lab Draw NO GROWTH AFTER 2 DAYS Anaerobic Blood Culture - Final 04/05/20 23:53 Aerobic Blood Culture - Preliminary Blood - Venous NO GROWTH AFTER 2 DAYS Anaerobic Blood Culture - Preliminary NO GROWTH AFTER 2 DAYS 04/05/20 23:35 Urine Culture - Final Urine, Quick Cath (In-Out) MIXED GIANFRANCO <1000 CFU/ML Sepsis Event Note - Focused Exam Vital Signs: Vital Signs Temp Pulse Resp BP BP Pulse Ox 04/08/20 11:00 36.3 C 65 16 136/78 98 04/08/20 08:34 113/68 04/08/20 08:33 113/68 04/08/20 07:15 36.3 C 62 18 113/68 96 04/08/20 04:00 36.7 C 60 18 100/54 L 98 Orders Last 24hrs: Active Orders 24 hr Category Date Time Status Admission Status [Patient Status] [ADT] Routine ADT 04/08/20 10:30 Active Abdomen Pelvis w Cont [CT] Urgent Exams 04/08/20 10:35 Ordered CBC WITH AUTO DIFF [HEME] AM Lab 04/09/20 05:11 Ordered CMP [COMPREHENSIVE METABOLIC PN,CMP] [CHEM] AM Lab 04/09/20 05:11 Ordered Medication Orders Albuterol/Ipratropium (Duoneb 3.0-0.5 Mg/3 Ml) 3 ml NEB Q4HRRT PRN PRN Reason: Shortness of Breath Last Admin: 04/08/20 08:06 Dose: 3 ml Documented by: Admin: 04/06/20 09:49 Dose: 3 ml Documented by: PROFLUC Clonidine HCl (Catapres) 0.1 mg PO BID YASIR Last Admin: 04/08/20 08:34 Dose: 0.1 mg Documented by: Admin: 04/07/20 20:49 Dose: 0.1 mg Documented by: Admin: 04/07/20 08:43 Dose: 0.1 mg Documented by: Admin: 04/06/20 21:24 Dose: 0.1 mg Documented by: JOSEE Dextrose/Water (Dextrose 50% In Water) 25 ml IVPUSH ONETIME PRN PRN Reason: Hypoglycemia Last Admin: 04/07/20 07:02 Dose: 25 ml Documented by: DAVID Escitalopram Oxalate (Lexapro) 20 mg PO DAILY [facility] Last Admin: 04/08/20 08:33 Dose: 20 mg Documented by: Admin: 04/07/20 08:43 Dose: 20 mg Documented by: PRICILA Lactated Ringer's (Ringers, Lactated) 1,000 mls @ 125 mls/hr IV ASDIRECTED [facility] Last Admin: 04/08/20 06:35 Dose: 125 mls/hr Documented by: Infusion: 04/08/20 04:54 Dose: 125 mls/hr Documented by: Admin: 04/07/20 20:54 Dose: 125 mls/hr Documented by: Infusion: 04/07/20 17:55 Dose: 125 mls/hr Documented by: Admin: 04/07/20 09:55 Dose: 125 mls/hr Documented by: Infusion: 04/07/20 07:32 Dose: 125 mls/hr Documented by: Admin: 04/06/20 23:32 Dose: 125 mls/hr Documented by: Infusion: 04/06/20 22:32 Dose: 125 mls/hr Documented by: Admin: 04/06/20 14:32 Dose: 125 mls/hr Documented by: Infusion: 04/06/20 14:30 Dose: 125 mls/hr Documented by: Admin: 04/06/20 04:10 Dose: 125 mls/hr Documented by: HARPREET Pantoprazole Sodium 40 mg/ (Sodium Chloride) 10 mls @ 300 mls/hr IV Q12H [facility] Last Admin: 04/08/20 08:36 Dose: 300 mls/hr Documented by: Infusion: 04/07/20 20:46 Dose: 300 mls/hr Documented by: Admin: 04/07/20 20:44 Dose: 300 mls/hr Documented by: Infusion: 04/07/20 08:46 Dose: 300 mls/hr Documented by: Admin: 04/07/20 08:44 Dose: 300 mls/hr Documented by: Infusion: 04/06/20 21:26 Dose: 300 mls/hr Documented by: Admin: 04/06/20 21:24 Dose: 300 mls/hr Documented by: JOSEE Piperacillin Sod/Tazobactam (Sod 3.375 gm/ Sodium Chloride) 50 mls @ 100 mls/hr IV Q6H [facility] Last Admin: 04/08/20 08:34 Dose: 100 mls/hr Documented by: Infusion: 04/08/20 02:30 Dose: 100 mls/hr Documented by: Admin: 04/08/20 02:00 Dose: 100 mls/hr Documented by: Infusion: 04/07/20 20:09 Dose: 100 mls/hr Documented by: Admin: 04/07/20 19:39 Dose: 100 mls/hr Documented by: Infusion: 04/07/20 13:49 Dose: 100 mls/hr Documented by: Admin: 04/07/20 13:19 Dose: 100 mls/hr Documented by: Infusion: 04/07/20 09:17 Dose: 100 mls/hr Documented by: Admin: 04/07/20 08:47 Dose: 100 mls/hr Documented by: PRICILA Lisinopril (Prinivil) 10 mg PO DAILY [facility] Last Admin: 04/08/20 08:33 Dose: 10 mg Documented by: Admin: 04/07/20 08:43 Dose: 10 mg Documented by: PIRCILA Morphine Sulfate (Morphine) 1 mg IVPUSH Q4H PRN PRN Reason: Pain Last Admin: 04/08/20 12:33 Dose: 1 mg Documented by: Admin: 04/08/20 07:33 Dose: 1 mg Documented by: Admin: 04/08/20 01:30 Dose: 1 mg Documented by: Admin: 04/07/20 20:50 Dose: 1 mg Documented by: Admin: 04/07/20 14:49 Dose: 1 mg Documented by: Admin: 04/06/20 20:06 Dose: 1 mg Documented by: Admin: 04/06/20 12:54 Dose: 1 mg Documented by: Admin: 04/06/20 08:18 Dose: 1 mg Documented by: Admin: 04/06/20 04:19 Dose: 1 mg Documented by: HARPREET Ondansetron HCl (Zofran) 4 mg IVPUSH Q4H PRN PRN Reason: Nausea/Vomiting Last Admin: 04/06/20 09:35 Dose: 4 mg Documented by: ISATU Oxybutynin Chloride (Oxybutynin) 5 mg PO BID [facility] Last Admin: 04/08/20 08:34 Dose: 5 mg Documented by: Admin: 04/07/20 20:48 Dose: 5 mg Documented by: Admin: 04/07/20 08:43 Dose: 5 mg Documented by: Admin: 04/06/20 21:24 Dose: 5 mg Documented by: JOSEE Budesonide/Formoterol [ Symbicort 160-4.5 Mcg] 1 each INH BID [facility] Last Admin: 04/08/20 08:07 Dose: Not Given Documented by: Admin: 04/07/20 21:00 Dose: Not Given Documented by: Admin: 04/07/20 08:48 Dose: Not Given Documented by: Admin: 04/06/20 21:13 Dose: Not Given Documented by: AHMET Umeclidinium [place] [Incruse Ellipta*] 62.5 Mcg 1 each INH DAILY [facility] Last Admin: 04/08/20 08:07 Dose: Not Given Documented by: Admin: 04/07/20 08:48 Dose: Not Given Documented by: PRICILA Sodium Chloride (Saline Flush) 10 ml FLUSH ASDIRECTED PRN PRN Reason: Keep Vein Open Sodium Chloride (Saline Flush) 2.5 ml FLUSH ASDIRECTED PRN PRN Reason: Keep Vein Open Sucralfate (Carafate) 1 gm PO TIDAC [facility] Last Admin: 04/08/20 06:35 Dose: 1 gm Documented by: Admin: 04/07/20 17:01 Dose: 1 gm Documented by: Admin: 04/07/20 11:06 Dose: 1 gm Documented by: Admin: 04/07/20 06:48 Dose: 1 gm Documented by: Admin: 04/06/20 16:24 Dose: 1 gm Documented by: [id number] Venlafaxine HCl (Effexor Xr) 150 mg PO DAILY [facility] Last Admin: 04/08/20 08:33 Dose: 150 mg Documented by: Admin: 04/07/20 08:43 Dose: 150 mg Documented by: PRICILA Verapamil HCl (Calan) 40 mg PO TID [facility] Last Admin: 04/08/20 05:33 Dose: 40 mg Documented by: Admin: 04/07/20 22:44 Dose: 40 mg Documented by: Admin: 04/07/20 13:19 Dose: 40 mg Documented by: Admin: 04/07/20 06:48 Dose: 40 mg Documented by: Admin: 04/06/20 21:27 Dose: 40 mg Documented by: Admin: 04/06/20 13:23 Dose: 40 mg Documented by: ISATU Assessment/Plan Comment:: I performed a history and physical exam of the patient and discussed management with resident. I have reviewed the residents note and agree with documented findings and plan unless otherwise specified in my note.
[2020-04-06] MEDS ORDERED: Pantoprazole 40 MG in Sodium Chloride 0.9% 10 ML IV SCH ×2 (09:00→13:00)
[2020-04-06] MEDS: Albuterol/Ipratropium 3.0-0.5 MG/3 ML Neb Soln NEB PRN (09:49)
[2020-04-06] MEDS ORDERED: LORazepam 2 MG/ML SDV IVPUSH ONE (11:20)
[2020-04-06] MEDS: Sucralfate Suspension 1 GM/10 ML Cup PO SCH (16:24)
[2020-04-06] MEDS: Budesonide/Formoterol [Symbicort 160-4.5 Mcg] INH SCH (21:13)
[2020-04-06] MEDS: cloNIDine 0.1 MG Tab PO SCH (21:24)
[2020-04-06] MEDS: Pantoprazole 40 MG in Sodium Chloride 0.9% 10 ML IV SCH (21:24)
[2020-04-06] MEDS: Oxybutynin 5 MG Tab PO SCH (21:24)
[2020-04-07] MEDS: Piperacillin/Tazobactam 2.25 GM in Sodium Chloride 0.9% 50 ML IV SCH (02:21)
--- NOTE | 2020-04-07 02:42 | CONS ---
DATE OF CONSULTATION: 04/06/2020 DATE OF : 1955 PRIMARY CARE PHYSICIAN: None PCP REASON FOR CONSULT: Blood in stool. HISTORY OF PRESENT ILLNESS: The patient is a 64-year-old female. Apparently, about 2 days ago she started having some nausea and some abdominal pain along with fevers and chills. The patient says she felt very hot with a whole lot of sweating. She came to the hospital for evaluation. She was found to have elevated white cell count and elevated lactic acid along with elevated creatinine and BUN. She was admitted to the Hospitalist Service. She had a CT scan that showed some sigmoid diverticulosis, but was otherwise fairly unremarkable. The patient has apparently been having some looser stools. She reports that there was a little bit of blood in them. The patient says this has been going on for 2 days. She was in the hospital a couple of months ago with this. She was supposed to get followup as an outpatient, but she never did because she ended up with COVID and in a comma she reports. The patient says she has had a colonoscopy before, but it has been about 10 years. PAST MEDICAL HISTORY: Significant for; 1. Severe emphysema, on home oxygen. 2. COPD. 3. Hypertension. 4. Chronic migraines. 5. Meth use. 6. History of nicotine use. 7. Anxiety. 8. History of peptic ulcer disease. 9. Diverticulosis. 10.Hepatitis C. CURRENT HOME MEDICATIONS: 1. Prednisone 10 to 40 mg p.o. daily. 2. Lisinopril 10 mg daily. 3. Clonidine 0.1 mg p.o. b.i.d. 4. Levaquin 750 mg p.o. daily. 5. Omeprazole 40 mg p.o. t.i.d. 6. Ellipta 1 puff inhaled daily. 7. Venlafaxine 150 mg p.o. daily. 8. Carafate 1 g q.i.d. 9. Zocor 10 mg p.o. 10.Oxybutynin 5 mg p.o. b.i.d. 11.Zofran 5 mg p.o. q.6 hours p.r.n. 12.Omeprazole 20 mg p.o. daily. 13.Lorazepam 0.5 mg p.o. b.i.d. 14.Lexapro 10 mg p.o. daily. 15.Symbicort 1 puff b.i.d. 16.Albuterol inhaler 2 puffs b.i.d. 17.Tylenol 650 mg p.o. daily. ALLERGIES: No known drug allergies. PAST SURGICAL HISTORY: Appendectomy. FAMILY HISTORY: The patient really denies any. SOCIAL HISTORY: The patient says she quit smoking and meth, although she did test positive for meth on this admission. She also says she does not drink often. REVIEW OF SYSTEMS: A complete 10+ review of systems was done and was negative except for the HPI. PULMONARY: The patient says she does have severe emphysema and COPD. She does have home oxygen. Always feels shortness of breath. Apparently, she was intubated last month in [place]. Does complain of intermittent chest pain. GASTROINTESTINAL: Loose stools with some blood in it. This has been going off and on for several months, but seems worse in the last couple of days. PHYSICAL EXAMINATION: GENERAL: The patient is lying comfortably in her bed. She does fidget quite a bit in bed. Unsure if it is fidgeting or just the kind of tremor. HEENT: Head: Normocephalic. Mouth: Missing her teeth. She says she has dentures, but she does not know where they are currently. VITAL SIGNS: Temperature is 97.8, pulse is 69, blood pressure is 126/56, and saturating 91% on 2 L oxygen. HEART: Regular rhythm, although diminished sounds. LUNGS: Wheezing and very diminished sounds bilaterally. ABDOMEN: Soft and nondistended. She is tender to palpation, more in the lower abdomen, equally bilaterally. EXTREMITIES: No edema. NEUROLOGIC: Again, she is fairly fidgety or has resting tremor. She does not seem to be able to stop herself from moving. LABORATORY DATA: White cell count is 14.36, hemoglobin 9.9, and platelet count is 267. Lactic acid 1. Sodium 138, potassium 4.6, chloride 104, BUN 47, and creatinine 2.2. IMAGING: As per HPI. ASSESSMENT AND PLAN: This is a 64-year-old female. It looks like she has multiple episodes of abdominal pain and some blood in the stool. She is admitted now for an almost sepsis picture, though no real source of the sepsis has been found. She is being treated with antibiotics and fluids and seems to be getting better. The patient says her abdominal pain does feel much better than yesterday. She does have stool which is guaiac positive for blood. I went over with the patient potentially we could do upper scope to see if there is any recurrence of peptic ulcer disease and maybe even a colonoscopy. However, currently she needs to get over whatever infection she currently has, and then maybe we will be able to do it if everything else is stable. If she has no more blood in stool, potentially this can be done as an outpatient. I discussed the patient with our anesthesiologist on duty, who said we potentially do it if it was an emergency, but she may end up intubated for a couple of days afterwards because of her pulmonary status. I did discuss this with the patient and the Medicine team. Surgery will continue to follow. I do recommend still treating prophylactically with a PPI and Carafate. STEVEN / AMERICO /[id number] TELLY
[2020-04-07] MEDS ORDERED: 50% Dextrose in Water 50 ML Syringe IVPUSH PRN ×2 (06:30→07:15)
[2020-04-07] MEDS: Sucralfate Suspension 1 GM/10 ML Cup PO SCH ×3 (06:48→17:01)
[2020-04-07 07:10] LABS: CARBON DIOXIDE,CO2 22.5 mmol/L (21.0-32.0)
[2020-04-07] MEDS ORDERED: Magnesium Sulfate/Water 2 GM/50 ML Premix Bag IV ONE (07:33)
[2020-04-07] MEDS ORDERED: Magnesium Sulfate/Water 2 GM/50 ML BAG IV ONE ×2 (07:45→09:00)
[2020-04-07] MEDS: Oxybutynin 5 MG Tab PO SCH ×2 (08:43→20:48)
[2020-04-07] MEDS: cloNIDine 0.1 MG Tab PO SCH ×2 (08:43→20:49)
[2020-04-07] MEDS: Escitalopram 10 MG Tab PO SCH (08:43)
[2020-04-07] MEDS: Venlafaxine 75 MG Cap.ER PO SCH (08:43)
[2020-04-07] MEDS: Lisinopril 10 MG Tab PO SCH (08:43)
[2020-04-07] MEDS: Pantoprazole 40 MG in Sodium Chloride 0.9% 10 ML IV SCH ×2 (08:44→20:44)
[2020-04-07] MEDS: Piperacillin/Tazobactam 3.375 GM in Sodium Chloride 0.9% 50 ML IV SCH ×3 (08:47→19:39)
[2020-04-07] MEDS: UMECLIDINIUM BROMIDE 62.5 MCG INH SCH (08:48)
[2020-04-07] MEDS: Budesonide/Formoterol [Symbicort 160-4.5 Mcg] INH SCH ×2 (08:48→21:00)
[2020-04-07] MEDS: Lactated Ringers 1,000 ML IV SCH ×2 (09:55→20:54)
--- NOTE | 2020-04-07 14:26 | PCM.PN ---
<Evangelist Vernon - Last Filed: 04/07/20 14:27> - General Info Date of Service: 04/07/20 Subjective Update: Reports 2-3 diarrhea bowel movements yesterday. Denies any nausea and vomiting. Would like to try eating something today. Reports abdominal pain slightly improved since yesterday. - Patient Data Vitals - Most Recent: Last Vital Signs Temp 36.4 C 04/07/20 11:00 Pulse 63 04/07/20 11:00 Resp 20 04/07/20 11:00 BP 116/63 04/07/20 11:00 Pulse Ox 98 04/07/20 11:00 Weight - Most Recent: 57.788 kg I&O - Last 24 Hours: Intake & Output 04/06/20 04/07/20 04/07/20 22:59 06:59 14:59 Intake Total 0 1121 Output Total 0 Balance 0 1121 Lab Results Last 24 Hours: Laboratory Results - last 24 hr 04/06/20 04/07/20 04/07/20 Range/Units 17:05 06:05 06:13 WBC 10.59 (4.0-11.0) K/uL RBC 3.68 L (4.30-5.90) M/uL Hgb 10.2 L 9.9 L (12.0-16.0) g/dL Hct 31.2 L (36.0-46.0) % MCV 84.8 (80.0-98.0) fL MCH 26.9 L (27.0-32.0) pg MCHC 31.7 (31.0-37.0) g/dL RDW Std Deviation 49.8 (28.0-62.0) fl RDW Coeff of Jamil 16 H (11.0-15.0) % Plt Count 258 (150-400) K/uL MPV 8.70 (7.40-12.00) fL Neut % (Auto) 71.4 (48.0-80.0) % Lymph % (Auto) 17.4 (16.0-40.0) % [place] % (Auto) 8.3 (0.0-15.0) % Eos % (Auto) 2.8 (0.0-7.0) % Baso % (Auto) 0.1 (0.0-1.5) % Neut # (Auto) 7.6 H (1.4-5.7) K/uL Lymph # (Auto) 1.8 (0.6-2.4) K/uL [place] # (Auto) 0.9 H (0.0-0.8) K/uL Eos # (Auto) 0.3 (0.0-0.7) K/uL Baso # (Auto) 0.0 (0.0-0.1) K/uL Nucleated RBC % 0.0 /100WBC Nucleated RBCs # 0 K/uL Sodium (136-145) mmol/L Potassium (3.5-5.1) mmol/L Chloride (98-107) mmol/L Carbon Dioxide (21.0-32.0) mmol/L BUN (7.0-18.0) mg/dL Creatinine (0.6-1.0) mg/dL Est Cr Clr Drug Dosing mL/min Estimated GFR (MDRD) ml/min Glucose (74-106) mg/dL POC Glucose 70 (60-110) mg/dL Calcium (8.5-10.1) mg/dL Magnesium (1.8-2.4) mg/dL Total Bilirubin (0.2-1.0) mg/dL AST (15-37) IU/L ALT (14-63) IU/L Alkaline Phosphatase (46-116) U/L Total Protein (6.4-8.2) g/dL Albumin (3.4-5.0) g/dL Globulin (2.6-4.0) g/dL Albumin/Globulin Ratio (0.9-1.6) 04/07/20 04/07/20 Range/Units 06:13 07:42 WBC (4.0-11.0) K/uL RBC (4.30-5.90) M/uL Hgb (12.0-16.0) g/dL Hct (36.0-46.0) % MCV (80.0-98.0) fL MCH (27.0-32.0) pg MCHC (31.0-37.0) g/dL RDW Std Deviation (28.0-62.0) fl RDW Coeff of Jamil (11.0-15.0) % Plt Count (150-400) K/uL MPV (7.40-12.00) fL Neut % (Auto) (48.0-80.0) % Lymph % (Auto) (16.0-40.0) % [place] % (Auto) (0.0-15.0) % Eos % (Auto) (0.0-7.0) % Baso % (Auto) (0.0-1.5) % Neut # (Auto) (1.4-5.7) K/uL Lymph # (Auto) (0.6-2.4) K/uL [place] # (Auto) (0.0-0.8) K/uL Eos # (Auto) (0.0-0.7) K/uL Baso # (Auto) (0.0-0.1) K/uL Nucleated RBC % /100WBC Nucleated RBCs # K/uL Sodium 138 (136-145) mmol/L Potassium 4.0 (3.5-5.1) mmol/L Chloride 107 (98-107) mmol/L Carbon Dioxide 22.5 (21.0-32.0) mmol/L BUN 24 H (7.0-18.0) mg/dL Creatinine 1.2 H (0.6-1.0) mg/dL Est Cr Clr Drug Dosing 43.78 mL/min Estimated GFR (MDRD) 45.4 ml/min Glucose 67 L (74-106) mg/dL POC Glucose 110 (60-110) mg/dL Calcium 8.7 (8.5-10.1) mg/dL Magnesium 1.7 L (1.8-2.4) mg/dL Total Bilirubin 0.5 (0.2-1.0) mg/dL AST 19 (15-37) IU/L ALT 17 (14-63) IU/L Alkaline Phosphatase 102 (46-116) U/L Total Protein 5.8 L (6.4-8.2) g/dL Albumin 2.7 L (3.4-5.0) g/dL Globulin 3.1 (2.6-4.0) g/dL Albumin/Globulin Ratio 0.9 (0.9-1.6) Ryan Results Last 24 Hours: Microbiology 04/05/20 23:35 Urine Culture - Final Urine, Quick Cath (In-Out) MIXED GIANFRANCO <1000 CFU/ML 04/05/20 23:58 Aerobic Blood Culture - Preliminary Blood - Venous - Lab Draw NO GROWTH AFTER 1 DAY Anaerobic Blood Culture - Final 04/05/20 23:53 Aerobic Blood Culture - Preliminary Blood - Venous NO GROWTH AFTER 1 DAY Anaerobic Blood Culture - Preliminary NO GROWTH AFTER 1 DAY 04/06/20 09:28 C. difficile Antigen & Toxins A,B - Final Stool / Feces 04/06/20 09:28 Stool Occult Blood (RYAN) - Final Stool / Feces Med Orders - Current: Current Medications Albuterol/Ipratropium (Duoneb 3.0-0.5 Mg/3 Ml) 3 ml NEB Q4HRRT PRN PRN Reason: Shortness of Breath Last Admin: 04/06/20 09:49 Dose: 3 ml Documented by: Clonidine HCl (Catapres) 0.1 mg PO BID [facility] Last Admin: 04/07/20 08:43 Dose: 0.1 mg Documented by: Dextrose/Water (Dextrose 50% In Water) 25 ml IVPUSH ONETIME PRN PRN Reason: Hypoglycemia Last Admin: 04/07/20 07:02 Dose: 25 ml Documented by: Escitalopram Oxalate (Lexapro) 20 mg PO DAILY [facility] Last Admin: 04/07/20 08:43 Dose: 20 mg Documented by: Lactated Ringer's (Ringers, Lactated) 1,000 mls @ 125 mls/hr IV ASDIRECTED [facility] Last Admin: 04/07/20 09:55 Dose: 125 mls/hr Documented by: Pantoprazole Sodium 40 mg/ (Sodium Chloride) 10 mls @ 300 mls/hr IV Q12H [facility] Last Admin: 04/07/20 08:44 Dose: 300 mls/hr Documented by: Piperacillin Sod/Tazobactam (Sod 3.375 gm/ Sodium Chloride) 50 mls @ 100 mls/hr IV Q6H [facility] Last Admin: 04/07/20 13:19 Dose: 100 mls/hr Documented by: Lisinopril (Prinivil) 10 mg PO DAILY [facility] Last Admin: 04/07/20 08:43 Dose: 10 mg Documented by: Morphine Sulfate (Morphine) 1 mg IVPUSH Q4H PRN PRN Reason: Pain Last Admin: 04/06/20 20:06 Dose: 1 mg Documented by: Ondansetron HCl (Zofran) 4 mg IVPUSH Q4H PRN PRN Reason: Nausea/Vomiting Last Admin: 04/06/20 09:35 Dose: 4 mg Documented by: Oxybutynin Chloride (Oxybutynin) 5 mg PO BID [facility] Last Admin: 04/07/20 08:43 Dose: 5 mg Documented by: Budesonide/Formoterol [ Symbicort 160-4.5 Mcg] 1 each INH BID [facility] Last Admin: 04/07/20 08:48 Dose: Not Given Documented by: Umeclidinium [place] [Incruse Ellipta*] 62.5 Mcg 1 each INH DAILY [facility] Last Admin: 04/07/20 08:48 Dose: Not Given Documented by: Sodium Chloride (Saline Flush) 10 ml FLUSH ASDIRECTED PRN PRN Reason: Keep Vein Open Sodium Chloride (Saline Flush) 2.5 ml FLUSH ASDIRECTED PRN PRN Reason: Keep Vein Open Sucralfate (Carafate) 1 gm PO TIDAC [facility] Last Admin: 04/07/20 11:06 Dose: 1 gm Documented by: Venlafaxine HCl (Effexor Xr) 150 mg PO DAILY [facility] Last Admin: 04/07/20 08:43 Dose: 150 mg Documented by: Verapamil HCl (Calan) 40 mg PO TID [facility] Last Admin: 04/07/20 13:19 Dose: 40 mg Documented by: Discontinued Medications Albuterol/Ipratropium (Duoneb 3.0-0.5 Mg/3 Ml) 3 ml NEB ONETIME ONE Stop: 04/06/20 00:57 Last Admin: 04/06/20 01:00 Dose: 3 ml Documented by: Albuterol/Ipratropium (Duoneb 3.0-0.5 Mg/3 Ml) Confirm Administered Dose 3 ml .ROUTE .STK-MED ONE Stop: 04/06/20 00:57 Last Admin: 04/06/20 01:00 Dose: Not Given Documented by: Dextrose/Water (Dextrose 50% In Water) 50 ml IVPUSH ONETIME PRN PRN Reason: Hypoglycemia Hydromorphone HCl (Dilaudid) 1 mg IVPUSH ONETIME ONE Stop: 04/05/20 23:29 Last Admin: 04/05/20 23:34 Dose: 1 mg Documented by: Sodium Chloride (Normal Saline) 1,000 mls @ 999 mls/hr IV .BOLUS ONE Stop: 04/06/20 00:25 Last Admin: 04/05/20 23:32 Dose: 999 mls/hr Documented by: Piperacillin Sod/Tazobactam (Sod 4.5 gm/ Sodium Chloride) 100 mls @ 100 mls/hr IV ONETIME ONE Stop: 04/06/20 00:34 Last Admin: 04/06/20 00:01 Dose: 100 mls/hr Documented by: Sodium Chloride (Normal Saline) 1,000 mls @ 999 mls/hr IV NOW STA Stop: 04/06/20 00:43 Last Admin: 04/06/20 00:02 Dose: 999 mls/hr Documented by: Pantoprazole Sodium 40 mg/ (Sodium Chloride) 10 mls @ 300 mls/hr IV DAILY YASIR Last Admin: 04/06/20 08:32 Dose: 300 mls/hr Documented by: Piperacillin Sod/Tazobactam (Sod 2.25 gm/ Sodium Chloride) 50 mls @ 100 mls/hr IV Q6H [facility] Last Admin: 04/07/20 02:21 Dose: 100 mls/hr Documented by: Pantoprazole Sodium 40 mg/ (Sodium Chloride) 10 mls @ 300 mls/hr IV Q12H [facility] Last Admin: 04/06/20 14:59 Dose: Not Given Documented by: Magnesium Sulfate (Magnesium Sulfate In Water Premix) 2 gm in 50 mls @ 50 mls/hr IV ONETIME ONE Stop: 04/07/20 08:44 Last Admin: 04/07/20 10:04 Dose: Not Given Documented by: Magnesium Sulfate (Magnesium Sulfate In Water Premix) 2 gm in 50 mls @ 50 mls/hr IV ONETIME ONE Stop: 04/07/20 09:59 Last Admin: 04/07/20 09:55 Dose: 50 mls/hr Documented by: Ketorolac Tromethamine (Toradol) 15 mg IVPUSH ONETIME ONE Stop: 04/05/20 22:21 Last Admin: 04/05/20 22:32 Dose: 15 mg Documented by: Lorazepam (Ativan) 1 mg IVPUSH ONETIME ONE Stop: 04/06/20 11:21 Last Admin: 04/06/20 11:35 Dose: 1 mg Documented by: - Exam General: Alert, Oriented, Cooperative, No Acute Distress Lungs: Normal Respiratory Effort, Wheezing Cardiovascular: Regular Rate, Regular Rhythm GI/Abdominal Exam: Normal Bowel Sounds, Soft, Other (mild generalized ttp). No: Guarding, Rigid Extremities: Normal Inspection, No Pedal Edema Sepsis Event Note - Evaluation Sepsis Screening Result: No Definite Risk - Focused Exam Vital Signs: Vital Signs Temp Pulse Resp BP BP Pulse Ox 04/07/20 11:00 36.4 C 63 20 116/63 98 04/07/20 08:43 122/67 04/07/20 07:45 36.8 C 76 20 122/67 93 L 04/07/20 04:54 36.6 C 92 19 144/88 H 94 L - Problem List & Annotations (1) Abdominal pain SNOMED Code(s): 24288693 Code(s): R10.9 - UNSPECIFIED ABDOMINAL PAIN Status: Acute Current Visit: Yes (2) Bloody stool SNOMED Code(s): 211074475 Code(s): K92.1 - MELENA Status: Acute Current Visit: Yes (3) Acute renal failure SNOMED Code(s): 03226952 Code(s): N17.9 - ACUTE KIDNEY FAILURE, UNSPECIFIED Status: Acute Current Visit: Yes (4) COPD (chronic obstructive pulmonary disease) SNOMED Code(s): 52917614 Code(s): J44.9 - CHRONIC OBSTRUCTIVE PULMONARY DISEASE, UNSPECIFIED Status: Chronic Current Visit: Yes Qualifiers: COPD type: COPD with acute exacerbation Qualified Code(s): J44.1 - Chronic obstructive pulmonary disease with (acute) exacerbation (5) Anxiety SNOMED Code(s): 06817957 Code(s): F41.9 - ANXIETY DISORDER, UNSPECIFIED Status: Chronic Current Visit: No (6) Depression SNOMED Code(s): 22059813 Code(s): F32.9 - MAJOR DEPRESSIVE DISORDER, SINGLE EPISODE, UNSPECIFIED Status: Chronic Current Visit: No Qualifiers: Depression Type: unspecified Qualified Code(s): F32.9 - Major depressive disorder, single episode, unspecified - Problem List Review Problem List Initiated/Reviewed/Updated: Yes - My Orders Last 24 Hours: My Active Orders 04/06/20 14:00 Verapamil [Calan] 40 mg PO TID 04/06/20 17:00 Sucralfate [Carafate] 1 gm PO TIDAC 04/06/20 21:00 Oxybutynin 5 mg PO BID Pantoprazole [ProTONIX IV] 40 mg Sodium Chloride 0.9% [Normal Saline] 10 ml IV Q12H Patient's Own Medication [Ptom] 1 each INH BID cloNIDine [Catapres] 0.1 mg PO BID 04/07/20 Breakfast Clear Liquid Diet [DIET] 04/07/20 09:00 Escitalopram [Lexapro] 20 mg PO DAILY Patient's Own Medication [Ptom] 1 each INH DAILY Venlafaxine [Effexor XR] 150 mg PO DAILY lisinopriL [Prinivil] 10 mg PO DAILY - Plan Plan:: Assessment and Plan: 1. Abdominal pain with bloody stool: - Abdominal pain slightly improved since yesterday and hemoglobin has been stable. Leukocytosis resolved. Patient on IV zosyn. General surgery consulted and can consider repeating CT abd/pelvis with contrast tomorrow if no improvement. Will advance to clear liquid diet today. Continue IV PPI BID and Carafate TID. - CT abd/pelvis on admission was unremarkable. UDS positive for methamphetamines/amphetamines. UA was unremarkable. Stool was Hemoccult positive. 2. Chronic hypoxic respiratory failure secondary to COPD: - Continue supplemental oxygen PRN to maintain O2 sat > 88%. Continue home inhalers and duonebs prn. - Home oxygen baseline requirement is 2 L. - CXR showed severe emphysema. 3. ALICIA, improving: - Continue IV fluids and will monitor with AM labs. 4. DVT prophylaxis: SCD's secondary to #1. 5. Past medical history of: HTN, diverticulosis, peptic ulcer disease, anxiety, depression and hepatitis C: - Continue home medications. <Wisam Young - Last Filed: 04/08/20 13:22> - Patient Data Vitals - Most Recent: Last Vital Signs Temp 36.3 C 04/08/20 11:00 Pulse 65 04/08/20 11:00 Resp 16 04/08/20 11:00 BP 136/78 04/08/20 11:00 Pulse Ox 98 04/08/20 11:00 I&O - Last 24 Hours: Intake & Output 04/07/20 04/08/20 04/08/20 22:59 06:59 14:59 Intake Total 610 500 Balance 610 500 Lab Results Last 24 Hours: Laboratory Results - last 24 hr 04/07/20 04/08/20 04/08/20 Range/Units 16:43 05:37 05:37 WBC 7.86 (4.0-11.0) K/uL RBC 3.34 L (4.30-5.90) M/uL Hgb 9.1 L (12.0-16.0) g/dL Hct 28.7 L (36.0-46.0) % MCV 85.9 (80.0-98.0) fL MCH 27.2 (27.0-32.0) pg MCHC 31.7 (31.0-37.0) g/dL RDW Std Deviation 51.2 (28.0-62.0) fl RDW Coeff of Jamil 16 H (11.0-15.0) % Plt Count 204 (150-400) K/uL MPV 9.10 (7.40-12.00) fL Neut % (Auto) 58.5 (48.0-80.0) % Lymph % (Auto) 27.9 (16.0-40.0) % [place] % (Auto) 9.9 (0.0-15.0) % Eos % (Auto) 3.6 (0.0-7.0) % Baso % (Auto) 0.1 (0.0-1.5) % Neut # (Auto) 4.6 (1.4-5.7) K/uL Lymph # (Auto) 2.2 (0.6-2.4) K/uL [place] # (Auto) 0.8 (0.0-0.8) K/uL Eos # (Auto) 0.3 (0.0-0.7) K/uL Baso # (Auto) 0.0 (0.0-0.1) K/uL Nucleated RBC % 0.0 /100WBC Nucleated RBCs # 0 K/uL Sodium 141 (136-145) mmol/L Potassium 3.8 (3.5-5.1) mmol/L Chloride 106 (98-107) mmol/L Carbon Dioxide 26.2 (21.0-32.0) mmol/L BUN 14 (7.0-18.0) mg/dL Creatinine 1.0 (0.6-1.0) mg/dL Est Cr Clr Drug Dosing 52.53 mL/min Estimated GFR (MDRD) 56.0 ml/min Glucose 78 (74-106) mg/dL POC Glucose 130 H (60-110) mg/dL Calcium 8.0 L (8.5-10.1) mg/dL Total Bilirubin 0.3 (0.2-1.0) mg/dL AST 15 (15-37) IU/L ALT 12 L (14-63) IU/L Alkaline Phosphatase 75 (46-116) U/L Total Protein 5.2 L (6.4-8.2) g/dL Albumin 2.2 L (3.4-5.0) g/dL Globulin 3.0 (2.6-4.0) g/dL Albumin/Globulin Ratio 0.7 L (0.9-1.6) Ryan Results Last 24 Hours: Microbiology 04/07/20 11:25 Cryptosporidium/Giardia - Final Stool / Feces 04/07/20 11:25 Shiga Toxin I & II - Final Stool / Feces 04/05/20 23:58 Aerobic Blood Culture - Preliminary Blood - Venous - Lab Draw NO GROWTH AFTER 2 DAYS Anaerobic Blood Culture - Final 04/05/20 23:53 Aerobic Blood Culture - Preliminary Blood - Venous NO GROWTH AFTER 2 DAYS Anaerobic Blood Culture - Preliminary NO GROWTH AFTER 2 DAYS 04/05/20 23:35 Urine Culture - Final Urine, Quick Cath (In-Out) MIXED GIANFRANCO <1000 CFU/ML Med Orders - Current: Current Medications Albuterol/Ipratropium (Duoneb 3.0-0.5 Mg/3 Ml) 3 ml NEB Q4HRRT PRN PRN Reason: Shortness of Breath Last Admin: 04/08/20 08:06 Dose: 3 ml Documented by: Clonidine HCl (Catapres) 0.1 mg PO BID [facility] Last Admin: 04/08/20 08:34 Dose: 0.1 mg Documented by: Dextrose/Water (Dextrose 50% In Water) 25 ml IVPUSH ONETIME PRN PRN Reason: Hypoglycemia Last Admin: 04/07/20 07:02 Dose: 25 ml Documented by: Escitalopram Oxalate (Lexapro) 20 mg PO DAILY [facility] Last Admin: 04/08/20 08:33 Dose: 20 mg Documented by: Lactated Ringer's (Ringers, Lactated) 1,000 mls @ 125 mls/hr IV ASDIRECTED [facility] Last Admin: 04/08/20 06:35 Dose: 125 mls/hr Documented by: Pantoprazole Sodium 40 mg/ (Sodium Chloride) 10 mls @ 300 mls/hr IV Q12H [facility] Last Admin: 04/08/20 08:36 Dose: 300 mls/hr Documented by: Piperacillin Sod/Tazobactam (Sod 3.375 gm/ Sodium Chloride) 50 mls @ 100 mls/hr IV Q6H [facility] Last Admin: 04/08/20 08:34 Dose: 100 mls/hr Documented by: Lisinopril (Prinivil) 10 mg PO DAILY [facility] Last Admin: 04/08/20 08:33 Dose: 10 mg Documented by: Morphine Sulfate (Morphine) 1 mg IVPUSH Q4H PRN PRN Reason: Pain Last Admin: 04/08/20 12:33 Dose: 1 mg Documented by: Ondansetron HCl (Zofran) 4 mg IVPUSH Q4H PRN PRN Reason: Nausea/Vomiting Last Admin: 04/06/20 09:35 Dose: 4 mg Documented by: Oxybutynin Chloride (Oxybutynin) 5 mg PO BID [facility] Last Admin: 04/08/20 08:34 Dose: 5 mg Documented by: Budesonide/Formoterol [ Symbicort 160-4.5 Mcg] 1 each INH BID [facility] Last Admin: 04/08/20 08:07 Dose: Not Given Documented by: Umeclidinium [place] [Incruse Ellipta*] 62.5 Mcg 1 each INH DAILY [facility] Last Admin: 04/08/20 08:07 Dose: Not Given Documented by: Sodium Chloride (Saline Flush) 10 ml FLUSH ASDIRECTED PRN PRN Reason: Keep Vein Open Sodium Chloride (Saline Flush) 2.5 ml FLUSH ASDIRECTED PRN PRN Reason: Keep Vein Open Sucralfate (Carafate) 1 gm PO TIDAC [facility] Last Admin: 04/08/20 06:35 Dose: 1 gm Documented by: Venlafaxine HCl (Effexor Xr) 150 mg PO DAILY [facility] Last Admin: 04/08/20 08:33 Dose: 150 mg Documented by: Verapamil HCl (Calan) 40 mg PO TID [facility] Last Admin: 04/08/20 05:33 Dose: 40 mg Documented by: Discontinued Medications Albuterol/Ipratropium (Duoneb 3.0-0.5 Mg/3 Ml) 3 ml NEB ONETIME ONE Stop: 04/06/20 00:57 Last Admin: 04/06/20 01:00 Dose: 3 ml Documented by: Albuterol/Ipratropium (Duoneb 3.0-0.5 Mg/3 Ml) Confirm Administered Dose 3 ml .ROUTE .STK-MED ONE Stop: 04/06/20 00:57 Last Admin: 04/06/20 01:00 Dose: Not Given Documented by: Dextrose/Water (Dextrose 50% In Water) 50 ml IVPUSH ONETIME PRN PRN Reason: Hypoglycemia Hydromorphone HCl (Dilaudid) 1 mg IVPUSH ONETIME ONE Stop: 04/05/20 23:29 Last Admin: 04/05/20 23:34 Dose: 1 mg Documented by: Sodium Chloride (Normal Saline) 1,000 mls @ 999 mls/hr IV .BOLUS ONE Stop: 04/06/20 00:25 Last Admin: 04/05/20 23:32 Dose: 999 mls/hr Documented by: Piperacillin Sod/Tazobactam (Sod 4.5 gm/ Sodium Chloride) 100 mls @ 100 mls/hr IV ONETIME ONE Stop: 04/06/20 00:34 Last Admin: 04/06/20 00:01 Dose: 100 mls/hr Documented by: Sodium Chloride (Normal Saline) 1,000 mls @ 999 mls/hr IV NOW STA Stop: 04/06/20 00:43 Last Admin: 04/06/20 00:02 Dose: 999 mls/hr Documented by: Pantoprazole Sodium 40 mg/ (Sodium Chloride) 10 mls @ 300 mls/hr IV DAILY YASIR Last Admin: 04/06/20 08:32 Dose: 300 mls/hr Documented by: Piperacillin Sod/Tazobactam (Sod 2.25 gm/ Sodium Chloride) 50 mls @ 100 mls/hr IV Q6H [facility] Last Admin: 04/07/20 02:21 Dose: 100 mls/hr Documented by: Pantoprazole Sodium 40 mg/ (Sodium Chloride) 10 mls @ 300 mls/hr IV Q12H [facility] Last Admin: 04/06/20 14:59 Dose: Not Given Documented by: Magnesium Sulfate (Magnesium Sulfate In Water Premix) 2 gm in 50 mls @ 50 mls/hr IV ONETIME ONE Stop: 04/07/20 08:44 Last Admin: 04/07/20 10:04 Dose: Not Given Documented by: Magnesium Sulfate (Magnesium Sulfate In Water Premix) 2 gm in 50 mls @ 50 mls/hr IV ONETIME ONE Stop: 04/07/20 09:59 Last Admin: 04/07/20 09:55 Dose: 50 mls/hr Documented by: Ketorolac Tromethamine (Toradol) 15 mg IVPUSH ONETIME ONE Stop: 04/05/20 22:21 Last Admin: 04/05/20 22:32 Dose: 15 mg Documented by: Lorazepam (Ativan) 1 mg IVPUSH ONETIME ONE Stop: 04/06/20 11:21 Last Admin: 04/06/20 11:35 Dose: 1 mg Documented by: Sepsis Event Note - Focused Exam Vital Signs: Vital Signs Temp Pulse Resp BP BP Pulse Ox 04/08/20 11:00 36.3 C 65 16 136/78 98 04/08/20 08:34 113/68 04/08/20 08:33 113/68 04/08/20 07:15 36.3 C 62 18 113/68 96 04/08/20 04:00 36.7 C 60 18 100/54 L 98 - Plan Plan:: I have seen and evaluated the patient and agree with the residents note unless specified in my note
[2020-04-07] MEDS: Morphine 2 MG/ML SYRINGE IVPUSH PRN ×2 (14:49→20:50)
[2020-04-08] MEDS: Morphine 2 MG/ML SYRINGE IVPUSH PRN ×4 (01:30→18:59)
[2020-04-08] MEDS: Piperacillin/Tazobactam 3.375 GM in Sodium Chloride 0.9% 50 ML IV SCH ×4 (02:00→20:30)
[2020-04-08] MEDS: Sucralfate Suspension 1 GM/10 ML Cup PO SCH ×3 (06:35→16:10)
[2020-04-08] MEDS: Lactated Ringers 1,000 ML IV SCH (06:35)
[2020-04-08 06:46] LABS: CARBON DIOXIDE,CO2 26.2 mmol/L (21.0-32.0); POTASSIUM,K 3.8 mmol/L (3.5-5.1)
--- NOTE | 2020-04-08 07:43 | PN ---
SUBJECTIVE: The patient was seen this morning. She says she is doing better. She says her abdominal pain is significantly better. She still has some lower abdominal pain. She states she continues to have some loose stools. It sounds like there may potentially be still a little bit of redness to it, but not really according to the patient. Overall, the patient says she is feeling better. OBJECTIVE: GENERAL: The patient is lying comfortably in her bed. She is alert and oriented. She is not having that fidgeting movement as much as yesterday, just a slight tremor. ABDOMEN: Soft and nondistended. Again, just some diffuse mild tenderness to palpation of her lower abdomen. LABORATORY DATA: White cell count has gone down to 10.59. Her creatinine is also improved. Hemoglobin is fairly stable at 9.9, which is the same as was yesterday. ASSESSMENT AND PLAN: This is a pleasant, 64-year-old female with multiple medical issues. She was having some abdominal pain and weakness. Here in the hospital, she had a CT scan which was relatively normal. Possible sepsis, but the source has not been identified. She has been started empirically on antibiotics and has been improving. We have been consulted to maybe do upper and lower endoscopy. I did talk to Anesthesia who said with her severe emphysema. She very likely would end up on a vent after sedation for awhile and if it not an emergency, should wait. Again, I went over with the hospital team that does not seem to be an acute scoping need. I recommended that potentially CT scanning tomorrow maybe with some contrast if she continues to have abdominal pain. Potentially consider scope as an outpatient at a tertiary hospital as long as she is improving. Also spoke with the patient about the plan. I answered all the patient's questions. It is okay for her to start on a diet. STEVEN DRISCOLL /[id number] TELLY
[2020-04-08] MEDS: Albuterol/Ipratropium 3.0-0.5 MG/3 ML Neb Soln NEB PRN ×2 (08:06→19:55)
[2020-04-08] MEDS: UMECLIDINIUM BROMIDE 62.5 MCG INH SCH (08:07)
[2020-04-08] MEDS: Budesonide/Formoterol [Symbicort 160-4.5 Mcg] INH SCH ×2 (08:07→23:15)
[2020-04-08] MEDS: Escitalopram 10 MG Tab PO SCH (08:33)
[2020-04-08] MEDS: Lisinopril 10 MG Tab PO SCH (08:33)
[2020-04-08] MEDS: Venlafaxine 75 MG Cap.ER PO SCH (08:33)
[2020-04-08] MEDS: cloNIDine 0.1 MG Tab PO SCH ×2 (08:34→20:27)
[2020-04-08] MEDS: Oxybutynin 5 MG Tab PO SCH ×2 (08:34→20:27)
[2020-04-08] MEDS: Pantoprazole 40 MG in Sodium Chloride 0.9% 10 ML IV SCH ×2 (08:36→20:27)
--- NOTE | 2020-04-08 11:09 | PCM.PN ---
<Evangelist Vernon M - Last Filed: 04/08/20 11:05> - General Info Date of Service: 04/08/20 Subjective Update: Reports 2-3 bouts of diarrhea yesterday that is dark brown and red in color. Abdominal pain has improved. Tolerating clear liquid diet well and would like to try and eat more. Denies any fevers or chills. - Patient Data Vitals - Most Recent: Last Vital Signs Temp 36.3 C 04/08/20 07:15 Pulse 62 04/08/20 07:15 Resp 18 04/08/20 07:15 BP 113/68 04/08/20 08:34 Pulse Ox 96 04/08/20 07:15 Weight - Most Recent: 57.788 kg I&O - Last 24 Hours: Intake & Output 04/07/20 04/08/20 04/08/20 22:59 06:59 14:59 Intake Total 610 500 Balance 610 500 Lab Results Last 24 Hours: Laboratory Results - last 24 hr 04/07/20 04/08/20 04/08/20 Range/Units 16:43 05:37 05:37 WBC 7.86 (4.0-11.0) K/uL RBC 3.34 L (4.30-5.90) M/uL Hgb 9.1 L (12.0-16.0) g/dL Hct 28.7 L (36.0-46.0) % MCV 85.9 (80.0-98.0) fL MCH 27.2 (27.0-32.0) pg MCHC 31.7 (31.0-37.0) g/dL RDW Std Deviation 51.2 (28.0-62.0) fl RDW Coeff of Jamil 16 H (11.0-15.0) % Plt Count 204 (150-400) K/uL MPV 9.10 (7.40-12.00) fL Neut % (Auto) 58.5 (48.0-80.0) % Lymph % (Auto) 27.9 (16.0-40.0) % Potter % (Auto) 9.9 (0.0-15.0) % Eos % (Auto) 3.6 (0.0-7.0) % Baso % (Auto) 0.1 (0.0-1.5) % Neut # (Auto) 4.6 (1.4-5.7) K/uL Lymph # (Auto) 2.2 (0.6-2.4) K/uL Potter # (Auto) 0.8 (0.0-0.8) K/uL Eos # (Auto) 0.3 (0.0-0.7) K/uL Baso # (Auto) 0.0 (0.0-0.1) K/uL Nucleated RBC % 0.0 /100WBC Nucleated RBCs # 0 K/uL Sodium 141 (136-145) mmol/L Potassium 3.8 (3.5-5.1) mmol/L Chloride 106 (98-107) mmol/L Carbon Dioxide 26.2 (21.0-32.0) mmol/L BUN 14 (7.0-18.0) mg/dL Creatinine 1.0 (0.6-1.0) mg/dL Est Cr Clr Drug Dosing 52.53 mL/min Estimated GFR (MDRD) 56.0 ml/min Glucose 78 (74-106) mg/dL POC Glucose 130 H (60-110) mg/dL Calcium 8.0 L (8.5-10.1) mg/dL Total Bilirubin 0.3 (0.2-1.0) mg/dL AST 15 (15-37) IU/L ALT 12 L (14-63) IU/L Alkaline Phosphatase 75 (46-116) U/L Total Protein 5.2 L (6.4-8.2) g/dL Albumin 2.2 L (3.4-5.0) g/dL Globulin 3.0 (2.6-4.0) g/dL Albumin/Globulin Ratio 0.7 L (0.9-1.6) Ryan Results Last 24 Hours: Microbiology 04/07/20 11:25 Cryptosporidium/Giardia - Final Stool / Feces 04/07/20 11:25 Shiga Toxin I & II - Final Stool / Feces 04/05/20 23:58 Aerobic Blood Culture - Preliminary Blood - Venous - Lab Draw NO GROWTH AFTER 2 DAYS Anaerobic Blood Culture - Final 04/05/20 23:53 Aerobic Blood Culture - Preliminary Blood - Venous NO GROWTH AFTER 2 DAYS Anaerobic Blood Culture - Preliminary NO GROWTH AFTER 2 DAYS 04/05/20 23:35 Urine Culture - Final Urine, Quick Cath (In-Out) MIXED GIANFRANCO <1000 CFU/ML Med Orders - Current: Current Medications Albuterol/Ipratropium (Duoneb 3.0-0.5 Mg/3 Ml) 3 ml NEB Q4HRRT PRN PRN Reason: Shortness of Breath Last Admin: 04/08/20 08:06 Dose: 3 ml Documented by: Clonidine HCl (Catapres) 0.1 mg PO BID [facility] Last Admin: 04/08/20 08:34 Dose: 0.1 mg Documented by: Dextrose/Water (Dextrose 50% In Water) 25 ml IVPUSH ONETIME PRN PRN Reason: Hypoglycemia Last Admin: 04/07/20 07:02 Dose: 25 ml Documented by: Escitalopram Oxalate (Lexapro) 20 mg PO DAILY [facility] Last Admin: 04/08/20 08:33 Dose: 20 mg Documented by: Lactated Ringer's (Ringers, Lactated) 1,000 mls @ 125 mls/hr IV ASDIRECTED [facility] Last Admin: 04/08/20 06:35 Dose: 125 mls/hr Documented by: Pantoprazole Sodium 40 mg/ (Sodium Chloride) 10 mls @ 300 mls/hr IV Q12H [facility] Last Admin: 04/08/20 08:36 Dose: 300 mls/hr Documented by: Piperacillin Sod/Tazobactam (Sod 3.375 gm/ Sodium Chloride) 50 mls @ 100 mls/hr IV Q6H [facility] Last Admin: 04/08/20 08:34 Dose: 100 mls/hr Documented by: Lisinopril (Prinivil) 10 mg PO DAILY [facility] Last Admin: 04/08/20 08:33 Dose: 10 mg Documented by: Morphine Sulfate (Morphine) 1 mg IVPUSH Q4H PRN PRN Reason: Pain Last Admin: 04/08/20 07:33 Dose: 1 mg Documented by: Ondansetron HCl (Zofran) 4 mg IVPUSH Q4H PRN PRN Reason: Nausea/Vomiting Last Admin: 04/06/20 09:35 Dose: 4 mg Documented by: Oxybutynin Chloride (Oxybutynin) 5 mg PO BID [facility] Last Admin: 04/08/20 08:34 Dose: 5 mg Documented by: Budesonide/Formoterol [ Symbicort 160-4.5 Mcg] 1 each INH BID [facility] Last Admin: 04/08/20 08:07 Dose: Not Given Documented by: Umeclidinium Winfield [Incruse Ellipta*] 62.5 Mcg 1 each INH DAILY [facility] Last Admin: 04/08/20 08:07 Dose: Not Given Documented by: Sodium Chloride (Saline Flush) 10 ml FLUSH ASDIRECTED PRN PRN Reason: Keep Vein Open Sodium Chloride (Saline Flush) 2.5 ml FLUSH ASDIRECTED PRN PRN Reason: Keep Vein Open Sucralfate (Carafate) 1 gm PO TIDAC [facility] Last Admin: 04/08/20 06:35 Dose: 1 gm Documented by: Venlafaxine HCl (Effexor Xr) 150 mg PO DAILY [facility] Last Admin: 04/08/20 08:33 Dose: 150 mg Documented by: Verapamil HCl (Calan) 40 mg PO TID [facility] Last Admin: 04/08/20 05:33 Dose: 40 mg Documented by: Discontinued Medications Albuterol/Ipratropium (Duoneb 3.0-0.5 Mg/3 Ml) 3 ml NEB ONETIME ONE Stop: 04/06/20 00:57 Last Admin: 04/06/20 01:00 Dose: 3 ml Documented by: Albuterol/Ipratropium (Duoneb 3.0-0.5 Mg/3 Ml) Confirm Administered Dose 3 ml .ROUTE .STK-MED ONE Stop: 04/06/20 00:57 Last Admin: 04/06/20 01:00 Dose: Not Given Documented by: Dextrose/Water (Dextrose 50% In Water) 50 ml IVPUSH ONETIME PRN PRN Reason: Hypoglycemia Hydromorphone HCl (Dilaudid) 1 mg IVPUSH ONETIME ONE Stop: 04/05/20 23:29 Last Admin: 04/05/20 23:34 Dose: 1 mg Documented by: Sodium Chloride (Normal Saline) 1,000 mls @ 999 mls/hr IV .BOLUS ONE Stop: 04/06/20 00:25 Last Admin: 04/05/20 23:32 Dose: 999 mls/hr Documented by: Piperacillin Sod/Tazobactam (Sod 4.5 gm/ Sodium Chloride) 100 mls @ 100 mls/hr IV ONETIME ONE Stop: 04/06/20 00:34 Last Admin: 04/06/20 00:01 Dose: 100 mls/hr Documented by: Sodium Chloride (Normal Saline) 1,000 mls @ 999 mls/hr IV NOW STA Stop: 04/06/20 00:43 Last Admin: 04/06/20 00:02 Dose: 999 mls/hr Documented by: Pantoprazole Sodium 40 mg/ (Sodium Chloride) 10 mls @ 300 mls/hr IV DAILY [facility] Last Admin: 04/06/20 08:32 Dose: 300 mls/hr Documented by: Piperacillin Sod/Tazobactam (Sod 2.25 gm/ Sodium Chloride) 50 mls @ 100 mls/hr IV Q6H [facility] Last Admin: 04/07/20 02:21 Dose: 100 mls/hr Documented by: Pantoprazole Sodium 40 mg/ (Sodium Chloride) 10 mls @ 300 mls/hr IV Q12H [facility] Last Admin: 04/06/20 14:59 Dose: Not Given Documented by: Magnesium Sulfate (Magnesium Sulfate In Water Premix) 2 gm in 50 mls @ 50 mls/hr IV ONETIME ONE Stop: 04/07/20 08:44 Last Admin: 04/07/20 10:04 Dose: Not Given Documented by: Magnesium Sulfate (Magnesium Sulfate In Water Premix) 2 gm in 50 mls @ 50 ml s/hr IV ONETIME ONE Stop: 04/07/20 09:59 Last Admin: 04/07/20 09:55 Dose: 50 mls/hr Documented by: Ketorolac Tromethamine (Toradol) 15 mg IVPUSH ONETIME ONE Stop: 04/05/20 22:21 Last Admin: 04/05/20 22:32 Dose: 15 mg Documented by: Lorazepam (Ativan) 1 mg IVPUSH ONETIME ONE Stop: 04/06/20 11:21 Last Admin: 04/06/20 11:35 Dose: 1 mg Documented by: - Exam General: Alert, Oriented, Cooperative, No Acute Distress Lungs: Clear to Auscultation, Normal Respiratory Effort Cardiovascular: Regular Rate, Regular Rhythm GI/Abdominal Exam: Normal Bowel Sounds, Soft, No Distention, Other (mild lower abdominal ttp.) Extremities: Normal Inspection, No Pedal Edema Sepsis Event Note - Evaluation Sepsis Screening Result: No Definite Risk - Focused Exam Vital Signs: Vital Signs Temp Pulse Resp BP BP Pulse Ox 04/08/20 08:34 113/68 04/08/20 08:33 113/68 04/08/20 07:15 36.3 C 62 18 113/68 96 04/08/20 04:00 36.7 C 60 18 100/54 L 98 04/08/20 00:09 36.9 C 65 20 96/58 L 99 - Problem List & Annotations (1) Abdominal pain SNOMED Code(s): 70123072 Code(s): R10.9 - UNSPECIFIED ABDOMINAL PAIN Status: Acute Current Visit: Yes (2) Bloody stool SNOMED Code(s): 029787975 Code(s): K92.1 - MELENA Status: Acute Current Visit: Yes (3) Acute renal failure SNOMED Code(s): 98962749 Code(s): N17.9 - ACUTE KIDNEY FAILURE, UNSPECIFIED Status: Acute Current Visit: Yes (4) COPD (chronic obstructive pulmonary disease) SNOMED Code(s): 87542164 Code(s): J44.9 - CHRONIC OBSTRUCTIVE PULMONARY DISEASE, UNSPECIFIED Status: Chronic Current Visit: Yes Qualifiers: COPD type: COPD with acute exacerbation Qualified Code(s): J44.1 - Chronic obstructive pulmonary disease with (acute) exacerbation (5) Anxiety SNOMED Code(s): 85953692 Code(s): F41.9 - ANXIETY DISORDER, UNSPECIFIED Status: Chronic Current Visit: No (6) Depression SNOMED Code(s): 10941575 Code(s): F32.9 - MAJOR DEPRESSIVE DISORDER, SINGLE EPISODE, UNSPECIFIED S tatus: Chronic Current Visit: No Qualifiers: Depression Type: unspecified Qualified Code(s): F32.9 - Major depressive disorder, single episode, unspecified - Problem List Review Problem List Initiated/Reviewed/Updated: Yes - My Orders Last 24 Hours: My Active Orders 04/08/20 10:30 Admission Status [Patient Status] [ADT] Routine 04/08/20 10:35 Abdomen Pelvis w Cont [CT] Urgent - Plan Plan:: Assessment and Plan: 1. Abdominal pain with bloody stool: - Patient reports abdominal pain is still present but improved. Hemoglobin has been stable. General surgery recommended repeating CT abd/pelvis with IV and oral contrast today. Can advance to soft diet after CT abdomen. Will continue IV PPI BID and Carafate TID. - CT abd/pelvis on admission was unremarkable. UDS positive for methamphetamines/amphetamines. UA was unremarkable. Stool was Hemoccult positive. 2. Chronic hypoxic respiratory failure secondary to COPD: - Continue supplemental oxygen PRN to maintain O2 sat > 88%. Continue home inhalers and duonebs prn. - Home oxygen baseline requirement is 2 L. - CXR showed severe emphysema. 3. ALICIA, resolved. 4. DVT prophylaxis: - SCD's secondary to #1. 5. Past medical history of: HTN, diverticulosis, peptic ulcer disease, anxiety, depression and hepatitis C: - Continue home medications. <Wisam Young - Last Filed: 04/08/20 13:14> - Patient Data Vitals - Most Recent: Last Vital Signs Temp 36.3 C 04/08/20 11:00 Pulse 65 04/08/20 11:00 Resp 16 04/08/20 11:00 BP 136/78 04/08/20 11:00 Pulse Ox 98 04/08/20 11:00 I&O - Last 24 Hours: Intake & Output 04/07/20 04/08/20 04/08/20 22:59 06:59 14:59 Intake Total 610 500 Balance 610 500 Lab Results Last 24 Hours: Laboratory Results - last 24 hr 04/07/20 04/08/20 04/08/20 Range/Units 16:43 05:37 05:37 WBC 7.86 (4.0-11.0) K/uL RBC 3.34 L (4.30-5.90) M/uL Hgb 9.1 L (12.0-16.0) g/dL Hct 28.7 L (36.0-46.0) % MCV 85.9 (80.0-98.0) fL MCH 27.2 (27.0-32.0) pg MCHC 31.7 (31.0-37.0) g/dL RDW Std Deviation 51.2 (28.0-62.0) fl RDW Coeff of Jamil 16 H (11.0-15.0) % Plt Count 204 (150-400) K/uL MPV 9.10 (7.40-12.00) fL Neut % (Auto) 58.5 (48.0-80.0) % Lymph % (Auto) 27.9 (16.0-40.0) % Potter % (Auto) 9.9 (0.0-15.0) % Eos % (Auto) 3.6 (0.0-7.0) % Baso % (Auto) 0.1 (0.0-1.5) % Neut # (Auto) 4.6 (1.4-5.7) K/uL Lymph # (Auto) 2.2 (0.6-2.4) K/uL Potter # (Auto) 0.8 (0.0-0.8) K/uL Eos # (Auto) 0.3 (0.0-0.7) K/uL Baso # (Auto) 0.0 (0.0-0.1) K/uL Nucleated RBC % 0.0 /100WBC Nucleated RBCs # 0 K/uL Sodium 141 (136-145) mmol/L Potassium 3.8 (3.5-5.1) mmol/L Chloride 106 (98-107) mmol/L Carbon Dioxide 26.2 (21.0-32.0) mmol/L BUN 14 (7.0-18.0) mg/dL Creatinine 1.0 (0.6-1.0) mg/dL Est Cr Clr Drug Dosing 52.53 mL/min Estimated GFR (MDRD) 56.0 ml/min Glucose 78 (74-106) mg/dL POC Glucose 130 H (60-110) mg/dL Calcium 8.0 L (8.5-10.1) mg/dL Total Bilirubin 0.3 (0.2-1.0) mg/dL AST 15 (15-37) IU/L ALT 12 L (14-63) IU/L Alkaline Phosphatase 75 (46-116) U/L Total Protein 5.2 L (6.4-8.2) g/dL Albumin 2.2 L (3.4-5.0) g/dL Globulin 3.0 (2.6-4.0) g/dL Albumin/Globulin Ratio 0.7 L (0.9-1.6) Ryan Results Last 24 Hours: Microbiology 04/07/20 11:25 Cryptosporidium/Giardia - Final Stool / Feces 04/07/20 11:25 Shiga Toxin I & II - Final Stool / Feces 04/05/20 23:58 Aerobic Blood Culture - Preliminary Blood - Venous - Lab Draw NO GROWTH AFTER 2 DAYS Anaerobic Blood Culture - Final 04/05/20 23:53 Aerobic Blood Culture - Preliminary Blood - Venous NO GROWTH AFTER 2 DAYS Anaerobic Blood Culture - Preliminary NO GROWTH AFTER 2 DAYS 04/05/20 23:35 Urine Culture - Final Urine, Quick Cath (In-Out) MIXED GIANFRANCO <1000 CFU/ML Med Orders - Current: Current Medications Albuterol/Ipratropium (Duoneb 3.0-0.5 Mg/3 Ml) 3 ml NEB Q4HRRT PRN PRN Reason: Shortness of Breath Last Admin: 04/08/20 08:06 Dose: 3 ml Documented by: Clonidine HCl (Catapres) 0.1 mg PO BID [facility] Last Admin: 04/08/20 08:34 Dose: 0.1 mg Documented by: Dextrose/Water (Dextrose 50% In Water) 25 ml IVPUSH ONETIME PRN PRN Reason: Hypoglycemia Last Admin: 04/07/20 07:02 Dose: 25 ml Documented by: Escitalopram Oxalate (Lexapro) 20 mg PO DAILY [facility] Last Admin: 04/08/20 08:33 Dose: 20 mg Documented by: Lactated Ringer's (Ringers, Lactated) 1,000 mls @ 125 mls/hr IV ASDIRECTED [facility] Last Admin: 04/08/20 06:35 Dose: 125 mls/hr Documented by: Pantoprazole Sodium 40 mg/ (Sodium Chloride) 10 mls @ 300 mls/hr IV Q12H [facility] Last Admin: 04/08/20 08:36 Dose: 300 mls/hr Documented by: Piperacillin Sod/Tazobactam (Sod 3.375 gm/ Sodium Chloride) 50 mls @ 100 mls/hr IV Q6H [facility] Last Admin: 04/08/20 08:34 Dose: 100 mls/hr Documented by: Lisinopril (Prinivil) 10 mg PO DAILY [facility] Last Admin: 04/08/20 08:33 Dose: 10 mg Documented by: Morphine Sulfate (Morphine) 1 mg IVPUSH Q4H PRN PRN Reason: Pain Last Admin: 04/08/20 12:33 Dose: 1 mg Documented by: Ondansetron HCl (Zofran) 4 mg IVPUSH Q4H PRN PRN Reason: Nausea/Vomiting Last Admin: 10/27/20 09:35 Dose: 4 mg Documented by: Oxybutynin Chloride (Oxybutynin) 5 mg PO BID [facility] Last Admin: 04/08/20 08:34 Dose: 5 mg Documented by: Budesonide/Formoterol [ Symbicort 160-4.5 Mcg] 1 each INH BID [facility] Last Admin: 04/08/20 08:07 Dose: Not Given Documented by: Umeclidinium Winfield [Incruse Ellipta*] 62.5 Mcg 1 each INH DAILY [facility] Last Admin: 04/08/20 08:07 Dose: Not Given Documented by: Sodium Chloride (Saline Flush) 10 ml FLUSH ASDIRECTED PRN PRN Reason: Keep Vein Open Sodium Chloride (Saline Flush) 2.5 ml FLUSH ASDIRECTED PRN PRN Reason: Keep Vein Open Sucralfate (Carafate) 1 gm PO TIDAC [facility] Last Admin: 04/08/20 06:35 Dose: 1 gm Documented by: Venlafaxine HCl (Effexor Xr) 150 mg PO DAILY [facility] Last Admin: 04/08/20 08:33 Dose: 150 mg Documented by: Verapamil HCl (Calan) 40 mg PO TID [facility] Last Admin: 04/08/20 05:33 Dose: 40 mg Documented by: Discontinued Medications Albuterol/Ipratropium (Duoneb 3.0-0.5 Mg/3 Ml) 3 ml NEB ONETIME ONE Stop: 04/06/20 00:57 Last Admin: 04/06/20 01:00 Dose: 3 ml Documented by: Albuterol/Ipratropium (Duoneb 3.0-0.5 Mg/3 Ml) Confirm Administered Dose 3 ml .ROUTE .STK-MED ONE Stop: 04/06/20 00:57 Last Admin: 04/06/20 01:00 Dose: Not Given Documented by: Dextrose/Water (Dextrose 50% In Water) 50 ml IVPUSH ONETIME PRN PRN Reason: Hypoglycemia Hydromorphone HCl (Dilaudid) 1 mg IVPUSH ONETIME ONE Stop: 04/05/20 23:29 Last Admin: 04/05/20 23:34 Dose: 1 mg Documented by: Sodium Chloride (Normal Saline) 1,000 mls @ 999 mls/hr IV .BOLUS ONE Stop: 04/06/20 00:25 Last Admin: 04/05/20 23:32 Dose: 999 mls/hr Documented by: Piperacillin Sod/Tazobactam (Sod 4.5 gm/ Sodium Chloride) 100 mls @ 100 mls/hr IV ONETIME ONE Stop: 04/06/20 00:34 Last Admin: 04/06/20 00:01 Dose: 100 mls/hr Documented by: Sodium Chloride (Normal Saline) 1,000 mls @ 999 mls/hr IV NOW STA Stop: 04/06/20 00:43 Last Admin: 04/06/20 00:02 Dose: 999 mls/hr Documented by: Pantoprazole Sodium 40 mg/ (Sodium Chloride) 10 mls @ 300 mls/hr IV DAILY [facility] Last Admin: 04/06/20 08:32 Dose: 300 mls/hr Documented by: Piperacillin Sod/Tazobactam (Sod 2.25 gm/ Sodium Chloride) 50 mls @ 100 mls/hr IV Q6H [facility] Last Admin: 04/07/20 02:21 Dose: 100 mls/hr Documented by: Pantoprazole Sodium 40 mg/ (Sodium Chloride) 10 mls @ 300 mls/hr IV Q12H [facility] Last Admin: 04/06/20 14:59 Dose: Not Given Documented by: Magnesium Sulfate (Magnesium Sulfate In Water Premix) 2 gm in 50 mls @ 50 mls/hr IV ONETIME ONE Stop: 04/07/20 08:44 Last Admin: 04/07/20 10:04 Dose: Not Given Documented by: Magnesium Sulfate (Magnesium Sulfate In Water Premix) 2 gm in 50 mls @ 50 mls/hr IV ONETIME ONE Stop: 04/07/20 09:59 Last Admin: 04/07/20 09:55 Dose: 50 mls/hr Documented by: Ketorolac Tromethamine (Toradol) 15 mg IVPUSH ONETIME ONE Stop: 04/05/20 22:21 Last Admin: 04/05/20 22:32 Dose: 15 mg Documented by: Lorazepam (Ativan) 1 mg IVPUSH ONETIME ONE Stop: 04/06/20 11:21 Last Admin: 04/06/20 11:35 Dose: 1 mg Documented by: Sepsis Event Note - Focused Exam Vital Signs: Vital Signs Temp Pulse Resp BP BP Pulse Ox 04/08/20 11:00 36.3 C 65 16 136/78 98 04/08/20 08:34 113/68 04/08/20 08:33 113/68 04/08/20 07:15 36.3 C 62 18 113/68 96 04/08/20 04:00 36.7 C 60 18 100/54 L 98 - Plan Plan:: I have seen and evaluated the patient and agree with the residents note unless specified in my note
--- NOTE | 2020-04-08 11:37 | PN ---
SUBJECTIVE: The patient says she is feeling again improved. She continues to have some loose stools, but she says this is improving. She has not seen any red blood in her stool. This is more brownish, more of dark brown color. The patient continues to feel more of a cramping discomfort just in her lower abdomen. She feels that it is improving. Overall, she continues to feel better. She is tolerated her diet. OBJECTIVE: GENERAL: The patient is sitting comfortably and lying comfortably in hospital bed. She is alert and oriented. ABDOMEN: Soft, nondistended. Again, some tenderness more in the mid lower abdomen to palpation. ASSESSMENT AND PLAN: This is a pleasant 64-year-old female who came in here with dizziness, abdominal pain, and dehydration. She has been improving and on empiric antibiotics. I would not do any scope unless it is emergent, which this does not appear to be in her case. She should do the scope as an outpatient at [facility]. She does have severe lung disease. This was discussed with the hospital team. Potentially, we could still do a CT scan with intravenous and oral contrast to further evaluate. Surgery will continue to follow. STEVEN DRISCOLL /[id number] TELLY
--- NOTE | 2020-04-08 14:10 | CT ---
Indication: Abdominal pain and bloody stools Technique: Volumetric multidetector CT images of the abdomen and pelvis were obtained after the administration of intravenous contrast. 75 cc Isovue 370 low as molar intravenous contrast. Enteric contrast was also administered Comparison: CT abdomen and pelvis without contrast dated April 05, 2020 Findings: There is interval development of small bibasilar pleural effusions with adjacent compressive atelectasis and demonstration of emphysematous changes with interlobular septal thickening likely representing a component of pulmonary edema. The liver is again moderately enlarged with mild to moderate periportal edema. There is no definite intrahepatic biliary ductal dilatation. The portal vein is patent. There is a minimal amount of nonspecific fluid adjacent to the gallbladder without evidence of radiopaque calculi. There is a trace amount of perihepatic ascites fluid incidentally noted. There is no significant common biliary ductal dilatation or abrupt cut off. The spleen is normal in enhancement and size. The stomach and duodenum are grossly unremarkable. The pancreas is normal in enhancement without significant atrophy. The adrenal glands are unremarkable. The kidneys demonstrate simple cortically based cysts bilaterally with otherwise grossly preserved corticomedullary differentiation. There is no evidence of obstructive uropathy. There is contrast opacification of the small bowel and proximal colon with redemonstration of sigmoid diverticulosis with incomplete distension of the colon. Low-grade underlying inflammatory change is difficult to exclude. The appendix is unremarkable. There is no significant mesenteric, retroperitoneal, or pelvic sidewall lymph nodes. The aorta is nonaneurysmal. There is no significant atherosclerotic disease appreciated. The solid pelvic viscera are grossly unremarkable. There is dependent fluid within the pelvis with minimal trace fluid in the bilateral pericolic gutters. There is a minimal amount of pericholecystic and perihepatic fluid which is somewhat nonspecific. Mild central mesenteric edema is also appreciated. The anterior abdominal wall is intact without significant hernias. The lumbar vertebral body heights are grossly stable with straightening of the normal lumbar lordosis. Impression: Interval development of moderate periportal edema with minimal perihepatic, pericholecystic fluid as well as central mesenteric edema with minimal fluid seen in the bilateral pericolic gutters. These findings could be seen in the setting of ongoing hepatitis. Correlate with history of clinical symptoms and serum laboratory values. Interval development of small bibasilar pleural effusions with adjacent compressive atelectasis and superimposed pulmonary edema. Persistent sigmoid colonic diverticulosis without significant contrast opacification. No obvious pericolonic inflammation is appreciated. A low-grade infection is not excluded however. Please note that all CT scans at this facility use dose modulation, iterative reconstruction, and/or weight-based dosing when appropriate to reduce radiation dose to as low as reasonably achievable. Dictated by Ravindra Contreras MD @ Apr 08 2020 1:49PM Signed by Dr. Ravindra Contreras @ Apr 08 2020 2:08PM
[2020-04-08] MEDS ORDERED: Iopamidol 755 MG/ML 500 ML Multipack Bottle IVPUSH STA (15:12)
[2020-04-09] MEDS: Piperacillin/Tazobactam 3.375 GM in Sodium Chloride 0.9% 50 ML IV SCH ×4 (04:07→20:29)
[2020-04-09 05:52] LABS: BLOOD UREA NITROGEN,BUN 12 mg/dL (7.0-18.0); CARBON DIOXIDE,CO2 24.9 mmol/L (21.0-32.0); CHLORIDE,CL 107 mmol/L (98-107); GLUCOSE RANDOM 83 mg/dL (74-106); POTASSIUM,K 3.6 mmol/L (3.5-5.1); SODIUM,NA 140 mmol/L (136-145)
[2020-04-09] MEDS: Morphine 2 MG/ML SYRINGE IVPUSH PRN ×3 (06:04→18:12)
[2020-04-09] MEDS: Albuterol/Ipratropium 3.0-0.5 MG/3 ML Neb Soln NEB PRN (06:18)
[2020-04-09] MEDS: Sucralfate Suspension 1 GM/10 ML Cup PO SCH ×3 (07:43→17:56)
[2020-04-09 08:03] LABS: HEMOGLOBIN A1C 5.9 % (4.5-6.2)
[2020-04-09] MEDS: UMECLIDINIUM BROMIDE 62.5 MCG INH SCH (08:37)
[2020-04-09] MEDS: Budesonide/Formoterol [Symbicort 160-4.5 Mcg] INH SCH ×2 (08:37→20:31)
--- NOTE | 2020-04-09 09:00 | PCM.PN ---
- General Info Date of Service: 04/09/20 Subjective Update: Reports some improvement in abdominal pain. Denies any nausea or vomiting. Tolerating soft diet. Continues to report watery stools that are dark brown red colored. - Patient Data Vitals - Most Recent: Last Vital Signs Temp 36.4 C 04/09/20 04:00 Pulse 67 04/09/20 04:00 Resp 14 04/09/20 04:00 BP 137/80 04/09/20 04:00 Pulse Ox 94 L 04/09/20 04:00 Weight - Most Recent: 57.788 kg I&O - Last 24 Hours: Intake & Output 04/08/20 04/09/20 04/09/20 22:59 06:59 14:59 Intake Total 750 900 Output Total 500 750 Balance 250 150 Lab Results Last 24 Hours: Laboratory Results - last 24 hr 04/08/20 04/09/20 04/09/20 Range/Units 16:25 04:53 04:53 WBC 7.35 (4.0-11.0) K/uL RBC 3.36 L (4.30-5.90) M/uL Hgb 9.1 L (12.0-16.0) g/dL Hct 28.7 L (36.0-46.0) % MCV 85.4 (80.0-98.0) fL MCH 27.1 (27.0-32.0) pg MCHC 31.7 (31.0-37.0) g/dL RDW Std Deviation 49.5 (28.0-62.0) fl RDW Coeff of Jamil 16 H (11.0-15.0) % Plt Count 233 (150-400) K/uL MPV 9.40 (7.40-12.00) fL Neut % (Auto) 61.9 (48.0-80.0) % Lymph % (Auto) 26.5 (16.0-40.0) % Hardeman % (Auto) 7.9 (0.0-15.0) % Eos % (Auto) 3.4 (0.0-7.0) % Baso % (Auto) 0.3 (0.0-1.5) % Neut # (Auto) 4.6 (1.4-5.7) K/uL Lymph # (Auto) 2.0 (0.6-2.4) K/uL Hardeman # (Auto) 0.6 (0.0-0.8) K/uL Eos # (Auto) 0.3 (0.0-0.7) K/uL Baso # (Auto) 0.0 (0.0-0.1) K/uL Nucleated RBC % 0.0 /100WBC Nucleated RBCs # 0 K/uL Sodium 140 (136-145) mmol/L Potassium 3.6 (3.5-5.1) mmol/L Chloride 107 (98-107) mmol/L Carbon Dioxide 24.9 (21.0-32.0) mmol/L BUN 12 (7.0-18.0) mg/dL Creatinine 0.9 (0.6-1.0) mg/dL Est Cr Clr Drug Dosing 58.37 mL/min Estimated GFR (MDRD) > 60.0 ml/min Glucose 83 (74-106) mg/dL POC Glucose 303 H (60-110) mg/dL Hemoglobin A1c (4.5-6.2) % Calcium 8.1 L (8.5-10.1) mg/dL Total Bilirubin 0.2 (0.2-1.0) mg/dL AST 15 (15-37) IU/L ALT 15 (14-63) IU/L Alkaline Phosphatase 69 (46-116) U/L Total Protein 5.4 L (6.4-8.2) g/dL Albumin 2.3 L (3.4-5.0) g/dL Globulin 3.1 (2.6-4.0) g/dL Albumin/Globulin Ratio 0.7 L (0.9-1.6) 10/20 Range/Units 04:53 WBC (4.0-11.0) K/uL RBC (4.30-5.90) M/uL Hgb (12.0-16.0) g/dL Hct (36.0-46.0) % MCV (80.0-98.0) fL MCH (27.0-32.0) pg MCHC (31.0-37.0) g/dL RDW Std Deviation (28.0-62.0) fl RDW Coeff of Jamil (11.0-15.0) % Plt Count (150-400) K/uL MPV (7.40-12.00) fL Neut % (Auto) (48.0-80.0) % Lymph % (Auto) (16.0-40.0) % Hardeman % (Auto) (0.0-15.0) % Eos % (Auto) (0.0-7.0) % Baso % (Auto) (0.0-1.5) % Neut # (Auto) (1.4-5.7) K/uL Lymph # (Auto) (0.6-2.4) K/uL Hardeman # (Auto) (0.0-0.8) K/uL Eos # (Auto) (0.0-0.7) K/uL Baso # (Auto) (0.0-0.1) K/uL Nucleated RBC % /100WBC Nucleated RBCs # K/uL Sodium (136-145) mmol/L Potassium (3.5-5.1) mmol/L Chloride (98-107) mmol/L Carbon Dioxide (21.0-32.0) mmol/L BUN (7.0-18.0) mg/dL Creatinine (0.6-1.0) mg/dL Est Cr Clr Drug Dosing mL/min Estimated GFR (MDRD) ml/min Glucose (74-106) mg/dL POC Glucose (60-110) mg/dL Hemoglobin A1c 5.9 (4.5-6.2) % Calcium (8.5-10.1) mg/dL Total Bilirubin (0.2-1.0) mg/dL AST (15-37) IU/L ALT (14-63) IU/L Alkaline Phosphatase (46-116) U/L Total Protein (6.4-8.2) g/dL Albumin (3.4-5.0) g/dL Globulin (2.6-4.0) g/dL Albumin/Globulin Ratio (0.9-1.6) Ryan Results Last 24 Hours: Microbiology 04/05/20 23:58 Aerobic Blood Culture - Preliminary Blood - Venous - Lab Draw NO GROWTH AFTER 3 DAYS Anaerobic Blood Culture - Final 04/05/20 23:53 Aerobic Blood Culture - Preliminary Blood - Venous NO GROWTH AFTER 3 DAYS Anaerobic Blood Culture - Preliminary NO GROWTH AFTER 3 DAYS 04/07/20 11:25 Cryptosporidium/Giardia - Final Stool / Feces 04/07/20 11:25 Shiga Toxin I & II - Final Stool / Feces Med Orders - Current: Current Medications Albuterol/Ipratropium (Duoneb 3.0-0.5 Mg/3 Ml) 3 ml NEB Q4HRRT PRN PRN Reason: Shortness of Breath Last Admin: 04/09/20 06:18 Dose: 3 ml Documented by: Clonidine HCl (Catapres) 0.1 mg PO BID [facility] Last Admin: 04/08/20 20:27 Dose: 0.1 mg Documented by: Dextrose/Water (Dextrose 50% In Water) 25 ml IVPUSH ONETIME PRN PRN Reason: Hypoglycemia Last Admin: 04/07/20 07:02 Dose: 25 ml Documented by: Escitalopram Oxalate (Lexapro) 20 mg PO DAILY [facility] Last Admin: 04/08/20 08:33 Dose: 20 mg Documented by: Pantoprazole Sodium 40 mg/ (Sodium Chloride) 10 mls @ 300 mls/hr IV Q12H [facility] Last Admin: 04/08/20 20:27 Dose: 300 mls/hr Documented by: Piperacillin Sod/Tazobactam (Sod 3.375 gm/ Sodium Chloride) 50 mls @ 100 mls/hr IV Q6H [facility] Last Admin: 04/09/20 07:43 Dose: 100 mls/hr Documented by: Lisinopril (Prinivil) 10 mg PO DAILY [facility] Last Admin: 04/08/20 08:33 Dose: 10 mg Documented by: Morphine Sulfate (Morphine) 1 mg IVPUSH Q4H PRN PRN Reason: Pain Last Admin: 04/09/20 06:04 Dose: 1 mg Documented by: Ondansetron HCl (Zofran) 4 mg IVPUSH Q4H PRN PRN Reason: Nausea/Vomiting Last Admin: 04/06/20 09:35 Dose: 4 mg Documented by: Oxybutynin Chloride (Oxybutynin) 5 mg PO BID [facility] Last Admin: 04/08/20 20:27 Dose: 5 mg Documented by: Budesonide/Formoterol [ Symbicort 160-4.5 Mcg] 1 each INH BID [facility] Last Admin: 04/09/20 08:37 Dose: Not Given Documented by: Umeclidinium [place] [Incruse Ellipta*] 62.5 Mcg 1 each INH DAILY [facility] Last Admin: 04/09/20 08:37 Dose: Not Given Documented by: Sodium Chloride (Saline Flush) 10 ml FLUSH ASDIRECTED PRN PRN Reason: Keep Vein Open Sodium Chloride (Saline Flush) 2.5 ml FLUSH ASDIRECTED PRN PRN Reason: Keep Vein Open Sucralfate (Carafate) 1 gm PO TIDAC [facility] Last Admin: 04/09/20 07:43 Dose: 1 gm Documented by: Venlafaxine HCl (Effexor Xr) 150 mg PO DAILY [facility] Last Admin: 04/08/20 08:33 Dose: 150 mg Documented by: Verapamil HCl (Calan) 40 mg PO TID [facility] Last Admin: 04/09/20 06:04 Dose: 40 mg Documented by: Discontinued Medications Albuterol/Ipratropium (Duoneb 3.0-0.5 Mg/3 Ml) 3 ml NEB ONETIME ONE Stop: 04/06/20 00:57 Last Admin: 04/06/20 01:00 Dose: 3 ml Documented by: Albuterol/Ipratropium (Duoneb 3.0-0.5 Mg/3 Ml) Confirm Administered Dose 3 ml .ROUTE .STK-MED ONE Stop: 04/06/20 00:57 Last Admin: 04/06/20 01:00 Dose: Not Given Documented by: Dextrose/Water (Dextrose 50% In Water) 50 ml IVPUSH ONETIME PRN PRN Reason: Hypoglycemia Hydromorphone HCl (Dilaudid) 1 mg IVPUSH ONETIME ONE Stop: 04/05/20 23:29 Last Admin: 04/05/20 23:34 Dose: 1 mg Documented by: Sodium Chloride (Normal Saline) 1,000 mls @ 999 mls/hr IV .BOLUS ONE Stop: 04/06/20 00:25 Last Admin: 04/05/20 23:32 Dose: 999 mls/hr Documented by: Piperacillin Sod/Tazobactam (Sod 4.5 gm/ Sodium Chloride) 100 mls @ 100 mls/hr IV ONETIME ONE Stop: 04/06/20 00:34 Last Admin: 04/06/20 00:01 Dose: 100 mls/hr Documented by: Sodium Chloride (Normal Saline) 1,000 mls @ 999 mls/hr IV NOW STA Stop: 04/06/20 00:43 Last Admin: 04/06/20 00:02 Dose: 999 mls/hr Documented by: Lactated Ringer's (Ringers, Lactated) 1,000 mls @ 125 mls/hr IV ASDIRECTED [facility] Last Admin: 04/08/20 06:35 Dose: 125 mls/hr Documented by: Pantoprazole Sodium 40 mg/ (Sodium Chloride) 10 mls @ 300 mls/hr IV DAILY [facility] Last Admin: 04/06/20 08:32 Dose: 300 mls/hr Documented by: Piperacillin Sod/Tazobactam (Sod 2.25 gm/ Sodium Chloride) 50 mls @ 100 mls/hr IV Q6H [facility] Last Admin: 04/07/20 02:21 Dose: 100 mls/hr Documented by: Pantoprazole Sodium 40 mg/ (Sodium Chloride) 10 mls @ 300 mls/hr IV Q12H [facility] Last Admin: 04/06/20 14:59 Dose: Not Given Documented by: Magnesium Sulfate (Magnesium Sulfate In Water Premix) 2 gm in 50 mls @ 50 mls/hr IV ONETIME ONE Stop: 04/07/20 08:44 Last Admin: 04/07/20 10:04 Dose: Not Given Documented by: Magnesium Sulfate (Magnesium Sulfate In Water Premix) 2 gm in 50 mls @ 50 mls/hr IV ONETIME ONE Stop: 04/07/20 09:59 Last Admin: 04/07/20 09:55 Dose: 50 mls/hr Documented by: Iopamidol (Isovue Multipack-370 (76%)) 75 ml IVPUSH ONETIME STA Stop: 04/08/20 15:13 Last Admin: 04/08/20 15:13 Dose: 75 ml Documented by: Ketorolac Tromethamine (Toradol) 15 mg IVPUSH ONETIME ONE Stop: 04/05/20 22:21 Last Admin: 04/05/20 22:32 Dose: 15 mg Documented by: Lorazepam (Ativan) 1 mg IVPUSH ONETIME ONE Stop: 04/06/20 11:21 Last Admin: 04/06/20 11:35 Dose: 1 mg Documented by: - Exam General: Alert, Oriented, Cooperative, No Acute Distress Lungs: Clear to Auscultation, Normal Respiratory Effort Cardiovascular: Regular Rate, Regular Rhythm GI/Abdominal Exam: Normal Bowel Sounds, Soft, No Distention, Other (Left sided ttp) Extremities: Normal Inspection, No Pedal Edema Sepsis Event Note - Evaluation Sepsis Screening Result: No Definite Risk - Focused Exam Vital Signs: Vital Signs Temp Pulse Resp BP Pulse Ox 04/09/20 04:00 36.4 C 67 14 137/80 94 L 04/09/20 00:00 36.0 C L 69 16 113/66 96 - Problem List & Annotations (1) Abdominal pain SNOMED Code(s): 26046507 Code(s): R10.9 - UNSPECIFIED ABDOMINAL PAIN Status: Acute Current Visit: Yes (2) Bloody stool SNOMED Code(s): 974436707 Code(s): K92.1 - MELENA Status: Acute Current Visit: Yes (3) Acute renal failure SNOMED Code(s): 88946196 Code(s): N17.9 - ACUTE KIDNEY FAILURE, UNSPECIFIED Status: Acute Current Visit: Yes (4) COPD (chronic obstructive pulmonary disease) SNOMED Code(s): 74000105 Code(s): J44.9 - CHRONIC OBSTRUCTIVE PULMONARY DISEASE, UNSPECIFIED Status: Chronic Current Visit: Yes Qualifiers: COPD type: COPD with acute exacerbation Qualified Code(s): J44.1 - Chronic obstructive pulmonary disease with (acute) exacerbation (5) Anxiety SNOMED Code(s): 63828902 Code(s): F41.9 - ANXIETY DISORDER, UNSPECIFIED Status: Chronic Current Visit: No (6) Depression SNOMED Code(s): 37571864 Code(s): F32.9 - MAJOR DEPRESSIVE DISORDER, SINGLE EPISODE, UNSPECIFIED Status: Chronic Current Visit: No Qualifiers: Depression Type: unspecified Qualified Code(s): F32.9 - Major depressive disorder, single episode, unspecified - Problem List Review Problem List Initiated/Reviewed/Updated: Yes - My Orders Last 24 Hours: My Active Orders 04/08/20 10:30 Admission Status [Patient Status] [ADT] Routine 04/08/20 Lunch Soft Diet [DIET] 04/09/20 08:00 Abdomen Ltd [US] Urgent 04/10/20 05:11 CBC WITH AUTO DIFF [HEME] AM CMP [COMPREHENSIVE METABOLIC PN,CMP] [CHEM] AM - Plan Plan:: Assessment and Plan: 1. Abdominal pain with bloody stool: - Continues to complain of pain, however, reports it is improving. Hemoglobin has been stable overnight. Will continue IV PPI BID and Carafate TID. Patient on IV zosyn. General surgery following. - Repeat CT abd/pelvis with IV and oral contrast showed moderate periportal edema with minimal perihepatic, pericholecystic fluid a well as central mesenteric edema with minimal fluid in bilateral pericolic gutters. Findings could be seen in ongoing hepatitis. There is also sigmoid colonic diverticulosis with no obvious pericolonic inflammation. Per radiology, a low-grade infection cannot be excluded. - CT abd/pelvis on admission was unremarkable. UDS positive for methamphetamines/amphetamines. UA was unremarkable. Stool was Hemoccult positive. 2. Chronic hypoxic respiratory failure secondary to COPD: - Continue supplemental oxygen PRN to maintain O2 sat > 88%. Continue home inhalers and duonebs prn. - Home oxygen baseline requirement is 2 L. - CXR showed severe emphysema. 3. DVT prophylaxis: - SCD's secondary to #1. 4. Past medical history of: HTN, diverticulosis, peptic ulcer disease, anxiety, depression and hepatitis C: - Continue home medications.
[2020-04-09] MEDS: Escitalopram 10 MG Tab PO SCH (09:34)
[2020-04-09] MEDS: Lisinopril 10 MG Tab PO SCH (09:34)
[2020-04-09] MEDS: Venlafaxine 75 MG Cap.ER PO SCH (09:35)
[2020-04-09] MEDS: Oxybutynin 5 MG Tab PO SCH ×2 (09:35→20:27)
[2020-04-09] MEDS: cloNIDine 0.1 MG Tab PO SCH ×2 (09:35→20:27)
[2020-04-09] MEDS: Pantoprazole 40 MG in Sodium Chloride 0.9% 10 ML IV SCH ×2 (09:35→20:29)
[2020-04-09] MEDS ORDERED: Furosemide 40 MG/4 ML VIAL IVPUSH ONE (10:57)
[2020-04-09] MEDS ORDERED: Loperamide 2 MG Cap PO ONE (11:02)
--- NOTE | 2020-04-09 12:07 | PN ---
SUBJECTIVE: The patient states she is feeling better this morning. She says she is tolerating her diet well. She states she still has a little bit of lower abdominal pain, it feels like a knot. She is still having her loose stools. The loose stools appear more brown, which is a little bit of darkness to them she says. OBJECTIVE: GENERAL: The patient is lying comfortably in her bed. She is alert, no distress. VITAL SIGNS: Temperature is 97.6, heart rate is 67, and blood pressure is 124/72. ABDOMEN: Soft and nondistended. Still has some tenderness to palpation in her lower abdomen. IMAGING: She did get her CT scan done yesterday, which had been reviewed. I also looked at the report and images, does show some trace fluid in the pericolic gutters and some mild central mesenteric edema as well as periportal edema. LABORATORY DATA: Hemoglobin has been stable at 9.1 yesterday and today. ASSESSMENT AND PLAN: This is a pleasant, 64-year-old female who came in with weakness and abdominal pain and almost septic-looking picture. She has been started empirically on antibiotics and hydrated. She seems to be recovering well. On her CT scan, potentially she did have some type of resolving colitis. She also potentially could have had some type of hepatitis. It appears she seems to be improving with antibiotics. Currently, I do not recommend emergent scope. With a picture of possible hepatitis, I do recommend that she follow up with a spot cleaner. She could also potentially do upper and lower scope at a tertiary clinic as an outpatient. Discussed with the patient. Discussed with the hospitalist team. Surgery will sign off, but may call if there is any change in the patient or with any questions. STEVEN DRISCOLL /[id number] TELLY
--- NOTE | 2020-04-09 12:19 | US ---
INDICATION: Abdominal pain. TECHNIQUE: Ultrasound abdomen limited. Sonographic images of the right upper quadrant were obtained using borden-scale and color Doppler images. COMPARISON: CT abdomen and pelvis April 08, 2020 FINDINGS: Liver: The liver is somewhat enlarged with mild hepatic steatosis.. No masses. No intrahepatic biliary dilatation. Previously noted periportal edema on comparison CT is better appreciated on previous comparison. Gallbladder: The gallbladder is somewhat contracted in appearance without significant gallbladder wall thickening or shadowing calculus. Common bile duct: 1.6 mm. Pancreas: Unremarkable. Right kidney: Normal in size. Normal echotexture and cortex. No masses, stones, or hydronephrosis. Vasculature: Proximal abdominal aorta and IVC are normal. There is a trace amount of perihepatic and perinephric fluid. Incidental note is made of a pleural effusion in the right lung base. IMPRESSION: Persistent mild hepatomegaly. Minimal perihepatic, perinephric fluid is appreciated. Previously noted periportal edema is better appreciated on comparison CT. Dictated by Ravindra Contreras MD @ Apr 09 2020 12:13PM Signed by Dr. Ravindra Contreras @ Apr 09 2020 12:17PM
[2020-04-09] MEDS: Fluticasone/Salmeterol 100-50 MCG Inhalation Powder 14/Diskus INH SCH ×2 (13:15→20:30)
[2020-04-10] MEDS: Piperacillin/Tazobactam 3.375 GM in Sodium Chloride 0.9% 50 ML IV SCH ×3 (02:36→14:01)
[2020-04-10 03:48] VITALS: PULSE 68
[2020-04-10] MEDS: Albuterol/Ipratropium 3.0-0.5 MG/3 ML Neb Soln NEB PRN (06:01)
[2020-04-10 06:39] LABS: BLOOD UREA NITROGEN,BUN 12 mg/dL (7.0-18.0); CARBON DIOXIDE,CO2 29.5 mmol/L (21.0-32.0); CHLORIDE,CL 105 mmol/L (98-107); GLUCOSE RANDOM 125 mg/dL (74-106); POTASSIUM,K 3.1 mmol/L (3.5-5.1); SODIUM,NA 140 mmol/L (136-145)
[2020-04-10] MEDS: Sucralfate Suspension 1 GM/10 ML Cup PO SCH ×2 (06:40→11:55)
[2020-04-10] MEDS: Morphine 2 MG/ML SYRINGE IVPUSH PRN (06:47)
[2020-04-10] MEDS ORDERED: Potassium Chloride 20 MEQ Tab.ER PO ONE (07:33)
[2020-04-10] MEDS: Pantoprazole 40 MG in Sodium Chloride 0.9% 10 ML IV SCH (08:26)
[2020-04-10] MEDS: Oxybutynin 5 MG Tab PO SCH (08:29)
[2020-04-10] MEDS: Venlafaxine 75 MG Cap.ER PO SCH (08:30)
[2020-04-10] MEDS: cloNIDine 0.1 MG Tab PO SCH (08:30)
[2020-04-10] MEDS: Escitalopram 10 MG Tab PO SCH (08:31)
[2020-04-10] MEDS: Lisinopril 10 MG Tab PO SCH (08:31)
[2020-04-10] MEDS: Budesonide/Formoterol [Symbicort 160-4.5 Mcg] INH SCH (09:05)
[2020-04-10] MEDS: Fluticasone/Salmeterol 100-50 MCG Inhalation Powder 14/Diskus INH SCH (09:05)
[2020-04-10] MEDS: UMECLIDINIUM BROMIDE 62.5 MCG INH SCH (09:06)
--- NOTE | 2020-04-10 10:42 | PCM.DCSUM1 ---
Discharge Summary - Hospital Course Free Text/Narrative:: 64-year-old female admitted for abdominal pain and bloody stools. She has a PMH of COPD on home O2 (2L), HTN, diverticulosis, PUD, anxiety, depression, substance abuse and hepatitis C. On admission, WBC count 23,[address] abd/pelvis was unremarkable. CXR showed severe emphysema. UDS positive for methamphetamines/amphetamines. UA unremarkable. Stool was hemoccult positive. C. diff stool test negative. Patient was started on IV PPI BID and Carafate TID. She was also started on IV zosyn. General surgery was consulted and did not feel patient needed emergent endoscopy as her abdominal pain and bloody stools improved and hemoglobin remained stable. Repeat CT abd/pelvis with IV and oral contrast showed moderate periportal edema with minimal perihepatic, pericholecystic fluid a well as central mesenteric edema with minimal fluid in bilateral pericolic gutters. Findings could be seen in ongoing hepatitis. There is also sigmoid colonic diverticulosis with no obvious pericolonic inflammation. Per radiology, a low-grade infection cannot be excluded. Per general surgery, this could represent a resolving colitis. RUQ ultrasound showed mild hepatomegaly and minimal perihepatic and perinephric fluid. Hepatitis panel was ordered and is pending at time of discharge. General surgery recommended outpatient gastroenterology follow-up. Patient abdominal pain and diarrhea improved with antibiotics. She was discharged in stable condition with scripts for ciprofloxacin and metronidazole for 6 more days. She was counselled at length on complete cessation of illicit drugs. Advised to follow-up with PCP and gastroenterology on discharge. - Discharge Data Discharge Date: 04/10/20 Discharge Disposition: Home, Self-Care 01 Condition: Stable - Referral to Home Health Primary Care Physician: PCP None - Discharge Diagnosis/Problem(s) (1) Abdominal pain SNOMED Code(s): 68285239 ICD Code: R10.9 - UNSPECIFIED ABDOMINAL PAIN Status: Acute Current Visit: Yes (2) Bloody stool SNOMED Code(s): 634621814 ICD Code: K92.1 - MELENA Status: Acute Current Visit: Yes (3) Acute renal failure SNOMED Code(s): 58988592 ICD Code: N17.9 - ACUTE KIDNEY FAILURE, UNSPECIFIED Status: Acute Current Visit: Yes (4) COPD (chronic obstructive pulmonary disease) SNOMED Code(s): 39017190 ICD Code: J44.9 - CHRONIC OBSTRUCTIVE PULMONARY DISEASE, UNSPECIFIED Status: Chronic Current Visit: Yes Qualifiers: COPD type: COPD with acute exacerbation Qualified Code(s): J44.1 - Chronic obstructive pulmonary disease with (acute) exacerbation (5) Anxiety SNOMED Code(s): 42193675 ICD Code: F41.9 - ANXIETY DISORDER, UNSPECIFIED Status: Chronic Current Visit: No (6) Depression SNOMED Code(s): 73288311 ICD Code: F32.9 - MAJOR DEPRESSIVE DISORDER, SINGLE EPISODE, UNSPECIFIED Status: Chronic Current Visit: No Qualifiers: Depression Type: unspecified Qualified Code(s): F32.9 - Major depressive disorder, single episode, unspecified - Patient Summary/Data Consults: Consultations 04/06/20 12:58 Consult to Physician [CONS] Routine - Patient Instructions Diet, Other: Soft diet, advance as tolerated Activity: As Tolerated Notify Provider of: Fever, Increased Pain, Swelling and Redness, Drainage, Nausea and/or Vomiting Other/Special Instructions: worsening bloody stool. worsening abdominal pain - Discharge Plan *PRESCRIPTION DRUG MONITORING PROGRAM REVIEWED*: Not Applicable *COPY OF PRESCRIPTION DRUG MONITORING REPORT IN PATIENT KARIE: Not Applicable Prescriptions/Med Rec: Ciprofloxacin [Ciprofloxacin HCl] 500 mg PO BID 6 Days #12 tab metroNIDAZOLE [Metronidazole] 500 mg PO Q8H 6 Days #18 tablet Home Medications: Home Meds Venlafaxine HCl [Venlafaxine ER] 150 mg PO DAILY 09/22/18 [History] cloNIDine [Catapres] 0.1 mg PO BID 09/22/18 [History] Umeclidinium [place] [Incruse Ellipta*] 1 puff IH DAILY 05/19/19 [History] Escitalopram [Lexapro] 20 mg PO DAILY 08/06/19 [History] Oxybutynin 5 mg PO BID 08/06/19 [History] lisinopriL [Zestril] 10 mg PO DAILY 08/06/19 [History] Simvastatin [Zocor] 10 mg PO BEDTIME 09/01/19 [History] Acetaminophen [Tylenol] 650 mg PO Q6H PRN #20 tablet 11/16/19 [Rx] Hydrocodone/Acetaminophen [[place] 7.5-325 Tablet] 1 each PO Q4HR PRN #14 tablet 02/18/20 [Rx] Albuterol Sulfate [Albuterol Sulfate Hfa] 2 puff IH BID 03/01/20 [History] Budesonide/Formoterol [Symbicort 160-4.5 MCG] 1 puff INH BID 03/01/20 [History] LORazepam [Lorazepam] 0.5 mg PO BID PRN 03/01/20 [History] Ondansetron [Zofran] 4 mg PO Q6H PRN 03/01/20 [History] Verapamil [Calan] 40 mg PO TID 03/01/20 [History] Fluticasone Propionate 03/11/20 [History] Diphenhyd/Lidocaine/Nystatin [Magic Mouthwash] 5 ml PO QIDACANDBED PRN 04/06/20 [History] Omeprazole 20 mg PO DAILY 04/06/20 [History] Ciprofloxacin [Ciprofloxacin HCl] 500 mg PO BID 6 Days #12 tab 04/10/20 [Rx] metroNIDAZOLE [Metronidazole] 500 mg PO Q8H 6 Days #18 tablet 04/10/20 [Rx] Oxygen Therapy Mode: Nasal Cannula Oxygen Flow Rate (L/min): 2 Patient Handouts: Dehydration, Adult, [id number], Ciprofloxacin tablets, Metronidazole tablets or capsules Referrals: nino Borrero [Other] - 06/02/20 3:00 pm Mandie Cantrell PA [Physician Pricing Analyst] - 04/19/20 9:00 am - Discharge Summary/Plan Comment DC Time >30 min.: No - Patient Data Vitals - Most Recent: Last Vital Signs Temp 36.4 C 04/10/20 08:00 Pulse 68 04/10/20 08:00 Resp 18 04/10/20 08:00 BP 137/76 04/10/20 08:31 Pulse Ox 96 04/10/20 08:00 Weight - Most Recent: 57.788 kg I&O - Last 24 hours: Intake & Output 04/09/20 04/10/20 04/10/20 22:59 06:59 14:59 Intake Total 860 950 Output Total 2400 600 Balance -1540 350 Lab Results - Last 24 hrs: Laboratory Results - last 24 hr 04/10/20 04/10/20 Range/Units 05:40 05:40 WBC 6.71 (4.0-11.0) K/uL RBC 3.43 L (4.30-5.90) M/uL Hgb 9.3 L (12.0-16.0) g/dL Hct 29.0 L (36.0-46.0) % MCV 84.5 (80.0-98.0) fL MCH 27.1 (27.0-32.0) pg MCHC 32.1 (31.0-37.0) g/dL RDW Std Deviation 48.2 (28.0-62.0) fl RDW Coeff of Jamil 16 H (11.0-15.0) % Plt Count 254 (150-400) K/uL MPV 9.00 (7.40-12.00) fL Neut % (Auto) 54.3 (48.0-80.0) % Lymph % (Auto) 32.9 (16.0-40.0) % [place] % (Auto) 8.0 (0.0-15.0) % Eos % (Auto) 4.5 (0.0-7.0) % Baso % (Auto) 0.3 (0.0-1.5) % Neut # (Auto) 3.6 (1.4-5.7) K/uL Lymph # (Auto) 2.2 (0.6-2.4) K/uL [place] # (Auto) 0.5 (0.0-0.8) K/uL Eos # (Auto) 0.3 (0.0-0.7) K/uL Baso # (Auto) 0.0 (0.0-0.1) K/uL Nucleated RBC % 0.0 /100WBC Nucleated RBCs # 0 K/uL Sodium 140 (136-145) mmol/L Potassium 3.1 L (3.5-5.1) mmol/L Chloride 105 (98-107) mmol/L Carbon Dioxide 29.5 (21.0-32.0) mmol/L BUN 12 (7.0-18.0) mg/dL Creatinine 0.9 (0.6-1.0) mg/dL Est Cr Clr Drug Dosing 58.37 mL/min Estimated GFR (MDRD) > 60.0 ml/min Glucose 125 H (74-106) mg/dL Calcium 8.3 L (8.5-10.1) mg/dL Total Bilirubin 0.2 (0.2-1.0) mg/dL AST 13 L (15-37) IU/L ALT 13 L (14-63) IU/L Alkaline Phosphatase 71 (46-116) U/L Total Protein 5.6 L (6.4-8.2) g/dL Albumin 2.4 L (3.4-5.0) g/dL Globulin 3.2 (2.6-4.0) g/dL Albumin/Globulin Ratio 0.8 L (0.9-1.6) RYLEE Results - Last 24 hrs: Microbiology 04/05/20 23:58 Aerobic Blood Culture - Preliminary Blood - Venous - Lab Draw NO GROWTH AFTER 4 DAYS Anaerobic Blood Culture - Final 04/05/20 23:53 Aerobic Blood Culture - Preliminary Blood - Venous NO GROWTH AFTER 4 DAYS Anaerobic Blood Culture - Preliminary NO GROWTH AFTER 4 DAYS 04/07/20 11:25 Stool Culture - Preliminary Stool / Feces Shiga Toxin I & II - Final Med Orders - Current: Current Medications Albuterol/Ipratropium (Duoneb 3.0-0.5 Mg/3 Ml) 3 ml NEB Q4HRRT PRN PRN Reason: Shortness of Breath Last Admin: 04/10/20 06:01 Dose: 3 ml Documented by: Clonidine HCl (Catapres) 0.1 mg PO BID [facility] Last Admin: 04/10/20 08:30 Dose: 0.1 mg Documented by: Dextrose/Water (Dextrose 50% In Water) 25 ml IVPUSH ONETIME PRN PRN Reason: Hypoglycemia Last Admin: 04/07/20 07:02 Dose: 25 ml Documented by: Escitalopram Oxalate (Lexapro) 20 mg PO DAILY [facility] Last Admin: 04/10/20 08:31 Dose: 20 mg Documented by: Pantoprazole Sodium 40 mg/ (Sodium Chloride) 10 mls @ 300 mls/hr IV Q12H [facility] Last Admin: 04/10/20 08:26 Dose: 300 mls/hr Documented by: Piperacillin Sod/Tazobactam (Sod 3.375 gm/ Sodium Chloride) 50 mls @ 100 mls/hr IV Q6H [facility] Last Admin: 04/10/20 08:32 Dose: 100 mls/hr Documented by: Lisinopril (Prinivil) 10 mg PO DAILY [facility] Last Admin: 04/10/20 08:31 Dose: 10 mg Documented by: Morphine Sulfate (Morphine) 1 mg IVPUSH Q4H PRN PRN Reason: Pain Last Admin: 04/10/20 06:47 Dose: 1 mg Documented by: Ondansetron HCl (Zofran) 4 mg IVPUSH Q4H PRN PRN Reason: Nausea/Vomiting Last Admin: 04/06/20 09:35 Dose: 4 mg Documented by: Oxybutynin Chloride (Oxybutynin) 5 mg PO BID [facility] Last Admin: 04/10/20 08:29 Dose: 5 mg Documented by: Budesonide/Formoterol [ Symbicort 160-4.5 Mcg] 1 each INH BID [facility] Last Admin: 04/10/20 09:05 Dose: Not Given Documented by: Umeclidinium [place] [Incruse Ellipta*] 62.5 Mcg 1 each INH DAILY [facility] Last Admin: 04/10/20 09:06 Dose: Not Given Documented by: Fluticasone/Salmeterol (Advair Diskus 100-50) 1 puff INH BID [facility] Last Admin: 04/10/20 09:05 Dose: 1 puff Documented by: Sodium Chloride (Saline Flush) 10 ml FLUSH ASDIRECTED PRN PRN Reason: Keep Vein Open Sodium Chloride (Saline Flush) 2.5 ml FLUSH ASDIRECTED PRN PRN Reason: Keep Vein Open Sucralfate (Carafate) 1 gm PO TIDAC [facility] Last Admin: 04/10/20 06:40 Dose: 1 gm Documented by: Venlafaxine HCl (Effexor Xr) 150 mg PO DAILY [facility] Last Admin: 04/10/20 08:30 Dose: 150 mg Documented by: Verapamil HCl (Calan) 40 mg PO TID [facility] Last Admin: 04/10/20 06:40 Dose: 40 mg Documented by: Discontinued Medications Albuterol/Ipratropium (Duoneb 3.0-0.5 Mg/3 Ml) 3 ml NEB ONETIME ONE Stop: 04/06/20 00:57 Last Admin: 04/06/20 01:00 Dose: 3 ml Documented by: Albuterol/Ipratropium (Duoneb 3.0-0.5 Mg/3 Ml) Confirm Administered Dose 3 ml .ROUTE .STK-MED ONE Stop: 04/06/20 00:57 Last Admin: 04/06/20 01:00 Dose: Not Given Documented by: Dextrose/Water (Dextrose 50% In Water) 50 ml IVPUSH ONETIME PRN PRN Reason: Hypoglycemia Furosemide (Lasix) 20 mg IVPUSH NOW ONE Stop: 04/09/20 10:58 Last Admin: 04/09/20 12:15 Dose: 20 mg Documented by: Hydromorphone HCl (Dilaudid) 1 mg IVPUSH ONETIME ONE Stop: 04/05/20 23:29 Last Admin: 04/05/20 23:34 Dose: 1 mg Documented by: Sodium Chloride (Normal Saline) 1,000 mls @ 999 mls/hr IV .BOLUS ONE Stop: 04/06/20 00:25 Last Admin: 04/05/20 23:32 Dose: 999 mls/hr Documented by: Piperacillin Sod/Tazobactam (Sod 4.5 gm/ Sodium Chloride) 100 mls @ 100 mls/hr IV ONETIME ONE Stop: 04/06/20 00:34 Last Admin: 04/06/20 00:01 Dose: 100 mls/hr Documented by: Sodium Chloride (Normal Saline) 1,000 mls @ 999 mls/hr IV NOW STA Stop: 04/06/20 00:43 Last Admin: 04/06/20 00:02 Dose: 999 mls/hr Documented by: Lactated Ringer's (Ringers, Lactated) 1,000 mls @ 125 mls/hr IV ASDIRECTED [facility] Last Admin: 04/08/20 06:35 Dose: 125 mls/hr Documented by: Pantoprazole Sodium 40 mg/ (Sodium Chloride) 10 mls @ 300 mls/hr IV DAILY [facility] Last Admin: 04/06/20 08:32 Dose: 300 mls/hr Documented by: Piperacillin Sod/Tazobactam (Sod 2.25 gm/ Sodium Chloride) 50 mls @ 100 mls/hr IV Q6H [facility] Last Admin: 04/07/20 02:21 Dose: 100 mls/hr Documented by: Pantoprazole Sodium 40 mg/ (Sodium Chloride) 10 mls @ 300 mls/hr IV Q12H [facility] Last Admin: 04/06/20 14:59 Dose: Not Given Documented by: Magnesium Sulfate (Magnesium Sulfate In Water Premix) 2 gm in 50 mls @ 50 mls/hr IV ONETIME ONE Stop: 04/07/20 08:44 Last Admin: 04/07/20 10:04 Dose: Not Given Documented by: Magnesium Sulfate (Magnesium Sulfate In Water Premix) 2 gm in 50 mls @ 50 mls/hr IV ONETIME ONE Stop: 04/07/20 09:59 Last Admin: 04/07/20 09:55 Dose: 50 mls/hr Documented by: Iopamidol (Isovue Multipack-370 (76%)) 75 ml IVPUSH ONETIME STA Stop: 04/08/20 15:13 Last Admin: 04/08/20 15:13 Dose: 75 ml Documented by: Ketorolac Tromethamine (Toradol) 15 mg IVPUSH ONETIME ONE Stop: 04/05/20 22:21 Last Admin: 04/05/20 22:32 Dose: 15 mg Documented by: Loperamide HCl (Imodium) 2 mg PO ONETIME ONE Stop: 04/09/20 11:03 Last Admin: 04/09/20 12:15 Dose: 2 mg Documented by: Lorazepam (Ativan) 1 mg IVPUSH ONETIME ONE Stop: 04/06/20 11:21 Last Admin: 04/06/20 11:35 Dose: 1 mg Documented by: Potassium Chloride (Klor-Con M20) 40 meq PO ONETIME ONE Stop: 04/10/20 07:34 Last Admin: 04/10/20 08:29 Dose: 40 meq Documented by:
[2020-04-10 12:26] VITALS: BP 139/82
== END 2020-04-10 14:49 | disposition home or self-care (01) | DRG 392 ==
LOC: MW.ED 22:06 → MW.MS 04-06 01:10 → OBSVTOIN 04-08 12:08
PROVIDERS: ADMIT Student in an Organized Health Care Education/Training Program; ATTEND Student in an Organized Health Care Education/Training Program
DX: K52.9 Noninfective gastroenteritis and colitis, unspecified (principal); J96.11 Chronic respiratory failure with hypoxia; R10.9 Unspecified abdominal pain; B37.89 Other sites of candidiasis; N17.9 Acute kidney failure, unspecified; K92.1 Melena; E86.0 Dehydration; J43.9 Emphysema, unspecified; F41.9 Anxiety disorder, unspecified; R53.1 Weakness; R42 Dizziness and giddiness; F32.9 Major depressive disorder, single episode, unspecified; B19.20 Unspecified viral hepatitis C without hepatic coma; Z79.52 Long term (current) use of systemic steroids; Z87.442 Personal history of urinary calculi; H54.7 Unspecified visual loss; Z98.890 Other specified postprocedural states; Z87.891 Personal history of nicotine dependence; K57.30 Diverticulosis of large intestine without perforation or abscess without bleeding; I10 Essential (primary) hypertension; G43.909 Migraine, unspecified, not intractable, without status migrainosus; Z87.11 Personal history of peptic ulcer disease; K57.90 Diverticulosis of intestine, part unspecified, without perforation or abscess without bleeding; Z99.81 Dependence on supplemental oxygen; Z86.19 Personal history of other infectious and parasitic diseases; Z79.899 Other long term (current) drug therapy; Z79.51 Long term (current) use of inhaled steroids; Z20.828 Contact with and (suspected) exposure to other viral communicable diseases
CPT/HCPCS: 36415 ×4; 71045; 74176; 74177; 80053 ×4; 80074; 80305; 80307; 81001; 82272; 82962 ×3; 83605 ×2; 83690; 83735 ×2; 84100; 85018; 85025 ×4; 87040 ×2; 87045; 87046; 87086; 87324; 87328; 87329; 87449; 87899; 96361; 96365; 96375; 99285; A9270 ×25; C9113 ×5; J1170; J1885; J2060; J2270 ×8; J2405; J2543 ×10; J3475; J7030 ×2; J7050 ×10; J7120 ×6; U0002; 76705; 76705-26; 83036; 94640; 96376; G0378; J1940; J7620-GY; Q9967

== ENCOUNTER 2020-05-20 14:16 | Emergency (ER) | payer MEDICARE, MEDICAID ==
[2020-05-20] MEDS ORDERED: Albuterol/Ipratropium 3.0-0.5 MG/3 ML Neb Soln NEB ONE (14:20)
[2020-05-20] MEDS ORDERED: Sodium Chloride 0.9% 2.5 ML Syringe FLUSH PRN (14:20)
[2020-05-20] MEDS ORDERED: Sodium Chloride 0.9% 10 ML Syringe FLUSH PRN (14:20)
[2020-05-20] MEDS ORDERED: LORazepam 2 MG/ML SDV IVPUSH ONE (14:24)
--- NOTE | 2020-05-20 14:26 | EDM.PDOC ---
ED HPI GENERAL MEDICAL PROBLEM - General Chief Complaint: Respiratory Problem Stated Complaint: CHEST PAIN SOB Time Seen by Provider: 05/20/20 14:19 Source of Information: Reports: Patient History Limitations: Reports: No Limitations - History of Present Illness INITIAL COMMENTS - FREE TEXT/NARRATIVE: HISTORY AND PHYSICAL: History of present illness: Patient is a 64-year-old female who presents to the emergency room with complaints of shortness of breath, chest pain, body aches and headache over the past 3 days. Patient does have a past medical history of COPD and is typically on 2 L per nasal cannula. Upon arrival she is 86 to 88% on room air, does bump up into the low 90s with 3 L NC. She is anxious appearing and has moderate work of breathing; although she did not have her home 02 on [address]. Patient had tested positive for COVID-19 in 01/17/2020, recovered successfully shortly afterwards. States she has been staying home and does not feel she has had any new exposures. Patient denies any fever, chills, change in vision, syncope or near syncope. Denies any neck stiffness/ pain, back pain, or hemoptysis. Denies any abdominal pain, nausea, vomiting, diarrhea, constipation or dysuria. Has not noted any blood in urine or stool. Patient has been eating and drinking appropriately. Review of systems: As per history of present illness and below otherwise all systems reviewed and negative. Past medical history: As per history of present illness and as reviewed below otherwise noncontributory. Surgical history: As per history of present illness and as reviewed below otherwise noncontributory. Social history: See social history for further information Family history: As per history of present illness and as reviewed below otherwise noncontributory. Physical exam: General: Well developed and well nourished 64-year-old female. Alert and orientated x 3. Anxious but nontoxic in appearance and in no acute distress. Vital signs are stable and have been reviewed by me. Nursing notes were reviewed. HEENT: Atraumatic, normocephalic, pupils equal and reactive bilaterally, negative for conjunctival pallor or scleral icterus, mucous membranes dry, trachea midline. No drooling or trismus noted. No meningeal signs. No hot potato voice noted. Lungs: Poor air exchange throughout with fine expiratory wheezing noted to the right anterior lower lung field, chest nontender. Moderate work of breathing, no accessory muscles used. Heart: S1S2, regular rate and rhythm without overt murmur Abdomen: Soft, nondistended, nontender. Negative for masses or costovertebral tenderness. Pelvis: Stable nontender. Skin: Intact, warm, dry. Has various healing bruises throughout body. No lesions or rashes noted. Hematologic: No petechiae or purpra. Mucosa appropriate color and normal nail bed color and refill. Extremities: Atraumatic, moves all extremities per self without difficulty or deficits, negative for cords or calf pain. Neurovascular unremarkable. Neuro: Awake, alert, oriented. Cranial nerves II through XII unremarkable. Cerebellum unremarkable. Motor and sensory unremarkable throughout. Exam nonfocal. Psychiatric: Mood and affect are appropriate. Normal thought process. Answering questions appropriately. Notes: Chest x-ray shows stable hyperinflation and chronic interstitial changes within the right upper lobe bulla similar to previous exam her EKG shows a sinus rhythm with a rate of 81, no evidence of STEMI. Chest CT shows no evidence of PE. She has moderate to severe emphysema is similar to prior imaging. Occlusion of the distal right upper lobe bronchus similar to prior exam and differential could include under lining inflammation, debris or mass. The radiologist is recommending bronchoscopy. 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 I have talked with the patient about today's findings, in addition to providing specific details for plan of care. Reassessment at the time of disposition demonstrates that the patient is in no acute distress. She is breathing easy and vital signs are stable. She is on 2 L of oxygen which she typically uses at home. The patient is stable for discharge, counseling was provided and we discussed in great detail signs and symptoms that would prompt them to return to the Emergency Department. Medication, follow up and supportive care measures were reviewed and discussed. Voices understanding and is agreeable to plan of care. Denies any further questions or concerns at this time. Diagnostics: CBC, CMP, Troponin, EKG, CXR, D.Dimer, COVID Therapeutics: Duo Neb Prescription: None Impression: COPD exacerbation Plan: 1. Today your CT shows an occlusion in the right upper lobe of your lungs and should be scoped. Please mention this in your appointment in [place]. 2. Wear your oxygen at home. 3. We encourage you to follow up with your primary care provider and/or recommended specialist in the next few days for re-evaluation and further care/management. If your symptoms should worsen, new symptoms develop or any of the signs and symptoms we discussed should arise please return to the emergency room or call 911 (if needed). Definitive disposition and diagnosis as appropriate pending reevaluation and review of above. Head Pain Score (Numeric/FACES): 7 - Related Data Allergies Allergy/AdvReac Type Severity Reaction Status Date / Time No Known Allergies Allergy Verified 05/20/20 14:21 Home Meds: Home Meds Venlafaxine HCl [Venlafaxine ER] 150 mg PO DAILY 09/22/18 [History] cloNIDine [Catapres] 0.1 mg PO BID 09/22/18 [History] Umeclidinium [place] [Incruse Ellipta*] 1 puff IH DAILY 05/19/19 [History] Escitalopram [Lexapro] 20 mg PO DAILY 08/06/19 [History] Oxybutynin 5 mg PO BID 08/06/19 [History] lisinopriL [Zestril] 10 mg PO DAILY 08/06/19 [History] Simvastatin [Zocor] 10 mg PO BEDTIME 09/01/19 [History] Acetaminophen [Tylenol] 650 mg PO Q6H PRN #20 tablet 11/16/19 [Rx] Hydrocodone/Acetaminophen [[place] 7.5-325 Tablet] 1 each PO Q4HR PRN #14 tablet 02/18/20 [Rx] Albuterol Sulfate [Albuterol Sulfate Hfa] 2 puff IH BID 03/01/20 [History] Budesonide/Formoterol [Symbicort 160-4.5 MCG] 1 puff INH BID 03/01/20 [History] LORazepam [Lorazepam] 0.5 mg PO BID PRN 03/01/20 [History] Ondansetron [Zofran] 4 mg PO Q6H PRN 03/01/20 [History] Verapamil [Calan] 40 mg PO TID 03/01/20 [History] Fluticasone Propionate 03/11/20 [History] Diphenhyd/Lidocaine/Nystatin [Magic Mouthwash] 5 ml PO QIDACANDBED PRN 04/06/20 [History] Omeprazole 20 mg PO DAILY 04/06/20 [History] Ciprofloxacin [Ciprofloxacin HCl] 500 mg PO BID 6 Days #12 tab 04/10/20 [Rx] Fluconazole [Diflucan] 100 mg PO DAILY 7 Days #7 tablet 04/10/20 [Rx] metroNIDAZOLE [Metronidazole] 500 mg PO Q8H 6 Days #18 tablet 04/10/20 [Rx] traMADol [Ultram] 50 mg PO Q8H PRN 4 Days #12 tab 04/10/20 [Rx] Past Medical History - Past Health History Medical/Surgical History: Denies Medical/Surgical History HEENT History: Reports: None Other HEENT History: wears glasses Cardiovascular History: Reports: Hypertension Respiratory History: Reports: COPD, Other (See Below) Other Respiratory History: Home O2 @ 2LPM Gastrointestinal History: Reports: Diverticulosis Genitourinary History: Reports: Other (See Below) Other Genitourinary History: kidney stones [employer]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: Musculoskeletal History: Reports: None Neurological History: Reports: None Psychiatric History: Reports: Addiction, Anxiety, Depression Endocrine/Metabolic History: Reports: None Insulin Pump Model and Substance Abuse Rn: None Hematologic History: Reports: None Immunologic History: Reports: None Oncologic (Cancer) History: Reports: None Dermatologic History: Reports: None - Infectious Disease History Infectious Disease History: Reports: Hepatitis C Other Infectious Disease History: unsure of which kind of hepatitis - Past Surgical History Head Surgeries/Procedures: Reports: None HEENT Surgical History: Reports: None Cardiovascular Surgical History: Reports: None Respiratory Surgical History: Reports: None GI Surgical History: Reports: Appendectomy Female Surgical History: Reports: None Endocrine Surgical History: Reports: None Neurological Surgical History: Reports: None Musculoskeletal Surgical History: Reports: Other (See Below) Other Musculoskeletal Surgeries/Procedures:: rt shoulder surg Oncologic Surgical History: Reports: None Dermatological Surgical History: Reports: None Social & Family History - Family History Family Medical History: No Pertinent Family History Respiratory: Reports: Asthma, COPD : Reports: Renal Disease/Insufficiency Psychiatric: Reports: Anxiety, Depression Endocrine/Metabolic: Reports: Diabetes, type II Oncologic: Reports: Hodgkin's Lymphoma - Caffeine Use Caffeine Use: Reports: Coffee, Soda Caffeine Use Comment: 4-5 cups a day - Living Situation & Occupation Living situation: Reports: Single ED ROS GENERAL - Review of Systems Review Of Systems: Comprehensive ROS is negative, except as noted in HPI. ED EXAM, GENERAL - Physical Exam Exam: See Below (See dictation) Course - Vital Signs Last Recorded V/S: Last Vital Signs Temp 98.9 F 05/20/20 16:38 Pulse 79 05/20/20 16:38 Resp 20 05/20/20 16:38 BP 139/80 05/20/20 16:38 Pulse Ox 100 05/20/20 16:38 - Orders/Labs/Meds Orders: Active Orders 24 hr Category Date Time Status EKG Documentation Completion [RC] STAT Care 05/20/20 14:20 Active RT Aerosol Therapy [RC] ASDIRECTED Care 05/20/20 14:21 Active CULTURE BLOOD [BC] Stat Lab 05/20/20 14:32 Results CULTURE BLOOD [BC] Stat Lab 05/20/20 16:26 Results UA RFX RYLEE AND CULT IF INDIC [URIN] Stat Lab 05/20/20 14:20 Ordered Sodium Chloride 0.9% [Saline Flush] Med 05/20/20 14:20 Active 10 ml FLUSH ASDIRECTED PRN Sodium Chloride 0.9% [Saline Flush] Med 05/20/20 14:20 Active 2.5 ml FLUSH ASDIRECTED PRN Blood Culture x2 Reflex Set [OM.PC] Stat Oth 05/20/20 15:50 Ordered Saline Lock Insert [OM.PC] Stat Oth 05/20/20 14:20 Ordered Medication Orders Sodium Chloride (Saline Flush) 10 ml FLUSH ASDIRECTED PRN PRN Reason: Keep Vein Open Last Admin: 05/20/20 14:34 Dose: 10 ml Documented by: BONITA Sodium Chloride (Saline Flush) 2.5 ml FLUSH ASDIRECTED PRN PRN Reason: Keep Vein Open Last Admin: 05/20/20 14:34 Dose: 2.5 ml Documented by: OBNITA Labs: Laboratory Tests 05/20/20 05/20/20 05/20/20 Range/Units 14:32 14:32 14:32 WBC 9.07 (4.0-11.0) K/uL RBC 4.71 (4.30-5.90) M/uL Hgb 12.7 (12.0-16.0) g/dL Hct 40.3 (36.0-46.0) % MCV 85.6 (80.0-98.0) fL MCH 27.0 (27.0-32.0) pg MCHC 31.5 (31.0-37.0) g/dL RDW Std Deviation 49.6 (28.0-62.0) fl RDW Coeff of Jamil 16 H (11.0-15.0) % Plt Count 278 (150-400) K/uL MPV 10.40 (7.40-12.00) fL Neut % (Auto) 56.0 (48.0-80.0) % Lymph % (Auto) 30.3 (16.0-40.0) % Parker % (Auto) 9.0 (0.0-15.0) % Eos % (Auto) 4.4 (0.0-7.0) % Baso % (Auto) 0.3 (0.0-1.5) % Neut # (Auto) 5.1 (1.4-5.7) K/uL Lymph # (Auto) 2.8 H (0.6-2.4) K/uL Parker # (Auto) 0.8 (0.0-0.8) K/uL Eos # (Auto) 0.4 (0.0-0.7) K/uL Baso # (Auto) 0.0 (0.0-0.1) K/uL Nucleated RBC % 0.0 /100WBC Nucleated RBCs # 0 K/uL D-Dimer, Quantitative 0.61 H (0.0-0.50) mg/L FEU VBG pH (7.31-7.41) VBG pCO2 (35-45) mmHG VBG pO2 (30-40) mmHG VBG HCO3 (22-30) mEq/L VBG Total CO2 (41-51) mmol/L VBG Base Excess (-3.0-3.0) Sodium 141 (136-145) mmol/L Potassium 4.6 (3.5-5.1) mmol/L Chloride 106 (98-107) mmol/L Carbon Dioxide 25.0 (21.0-32.0) mmol/L BUN 26 H (7.0-18.0) mg/dL Creatinine 1.0 (0.6-1.0) mg/dL Est Cr Clr Drug Dosing 53.60 mL/min Estimated GFR (MDRD) 56.0 ml/min Glucose 109 H (74-106) mg/dL Calcium 9.2 (8.5-10.1) mg/dL Total Bilirubin 0.3 (0.2-1.0) mg/dL AST 25 (15-37) IU/L ALT 18 (14-63) IU/L Alkaline Phosphatase 70 (46-116) U/L Troponin I < 0.050 (0.000-0.056) ng/mL Total Protein 8.0 (6.4-8.2) g/dL Albumin 3.8 (3.4-5.0) g/dL Globulin 4.2 H (2.6-4.0) g/dL Albumin/Globulin Ratio 0.9 (0.9-1.6) SARS-CoV-2 RNA (ONOFRE) (NEGATIVE) 05/20/20 05/20/20 Range/Units 14:32 15:00 WBC (4.0-11.0) K/uL RBC (4.30-5.90) M/uL Hgb (12.0-16.0) g/dL Hct (36.0-46.0) % MCV (80.0-98.0) fL MCH (27.0-32.0) pg MCHC (31.0-37.0) g/dL RDW Std Deviation (28.0-62.0) fl RDW Coeff of Jamil (11.0-15.0) % Plt Count (150-400) K/uL MPV (7.40-12.00) fL Neut % (Auto) (48.0-80.0) % Lymph % (Auto) (16.0-40.0) % Parker % (Auto) (0.0-15.0) % Eos % (Auto) (0.0-7.0) % Baso % (Auto) (0.0-1.5) % Neut # (Auto) (1.4-5.7) K/uL Lymph # (Auto) (0.6-2.4) K/uL Parker # (Auto) (0.0-0.8) K/uL Eos # (Auto) (0.0-0.7) K/uL Baso # (Auto) (0.0-0.1) K/uL Nucleated RBC % /100WBC Nucleated RBCs # K/uL D-Dimer, Quantitative (0.0-0.50) mg/L FEU VBG pH 7.32 (7.31-7.41) VBG pCO2 52 H (35-45) mmHG VBG pO2 35 (30-40) mmHG VBG HCO3 27 (22-30) mEq/L VBG Total CO2 25 L (41-51) mmol/L VBG Base Excess 0 (-3.0-3.0) Sodium (136-145) mmol/L Potassium (3.5-5.1) mmol/L Chloride (98-107) mmol/L Carbon Dioxide (21.0-32.0) mmol/L BUN (7.0-18.0) mg/dL Creatinine (0.6-1.0) mg/dL Est Cr Clr Drug Dosing mL/min Estimated GFR (MDRD) ml/min Glucose (74-106) mg/dL Calcium (8.5-10.1) mg/dL Total Bilirubin (0.2-1.0) mg/dL AST (15-37) IU/L ALT (14-63) IU/L Alkaline Phosphatase (46-116) U/L Troponin I (0.000-0.056) ng/mL Total Protein (6.4-8.2) g/dL Albumin (3.4-5.0) g/dL Globulin (2.6-4.0) g/dL Albumin/Globulin Ratio (0.9-1.6) SARS-CoV-2 RNA (ONOFRE) NEGATIVE (NEGATIVE) Meds: Medications Generic Name Dose Route Start Last Admin Trade Name Freq PRN Reason Stop Dose Admin Sodium Chloride 10 ml 05/20/20 14:20 05/20/20 14:34 Saline Flush FLUSH 10 ml ASDIRECTED PRN Administration Keep Vein Open Sodium Chloride 2.5 ml 05/20/20 14:20 05/20/20 14:34 Saline Flush FLUSH 2.5 ml ASDIRECTED PRN Administration Keep Vein Open Discontinued Medications Generic Name Dose Route Start Last Admin Trade Name Freq PRN Reason Stop Dose Admin Albuterol/Ipratropium 3 ml 05/20/20 14:20 05/20/20 14:28 Duoneb 3.0-0.5 Mg/3 Ml NEB 05/20/20 14:21 3 ml ONETIME ONE Administration Iopamidol 60 ml 05/20/20 16:03 05/20/20 16:04 Isovue Multipack-370 (76%) IVPUSH 05/20/20 16:04 60 ml ONETIME ONE Administration Lorazepam 1 mg 05/20/20 14:24 05/20/20 14:44 Ativan IVPUSH 05/20/20 14:25 1 mg ONETIME ONE Administration Departure - Departure Time of Disposition: 17:20 Disposition: Home, Self-Care 01 Clinical Impression: COPD exacerbation - Discharge Information Instructions: Chronic Obstructive Pulmonary Disease, [id number] Forms: ED Department Discharge Additional Instructions: The following information is given to patients seen in the emergency department who are being discharged to home. This information is to outline your options for follow-up care. We provide all patients seen in our emergency department with a follow-up referral. The need for follow-up, as well as the timing and circumstances, are variable depending upon the specifics of your emergency department visit. If you don't have a primary care physician on staff, we will provide you with a referral. We always advise you to contact your personal physician following an emergency department visit to inform them of the circumstance of the visit and for follow-up with them and/or the need for any referrals to a consulting specialist. The emergency department will also refer you to a specialist when appropriate. This referral assures that you have the opportunity for follow-up care with a specialist. All of these measure are taken in an effort to provide you with optimal care, which includes your follow-up. Under all circumstances we always encourage you to contact your private physician who remains a resource for coordinating your care. When calling for follow-up care, please make the office aware that this follow-up is from your recent emergency room visit. If for any reason you are refused follow-up, please contact the [facility] Emergency Department at and asked to speak to the emergency department charge nurse. [facility] [address] [place] [id number] [address] Thank you for choosing the [facility] emergency department in [place] for your medical needs today. It was a pleasure caring for you. Today you were seen in the emergency department for COPD exacerbation, body aches, and headache. 1. Today your CT shows an occlusion in the right upper lobe of your lungs and should be evaluated further. Please mention this in your appointment in [place]. 2. Wear your oxygen at home. Alternate Tylenol and/or ibuprofen as needed for your headache and body aches. 3. We encourage you to follow up with your primary care provider and/or recommended specialist in the next few days for re-evaluation and further care/management. If your symptoms should worsen, new symptoms develop or any of the signs and symptoms we discussed should arise please return to the emergency room or call 911 (if needed). Sepsis Event Note (ED) - Evaluation Sepsis Screening Result: No Definite Risk - Focused Exam Vital Signs: Vital Signs Temp Pulse Resp BP Pulse Ox 05/20/20 16:38 98.9 F 79 20 139/80 100 05/20/20 15:40 98.9 F 80 21 H 128/77 100 05/20/20 14:38 98.9 F 80 22 H 146/83 H 100 05/20/20 14:22 97.4 F 81 24 H 174/102 H 98 - My Orders Last 24 Hours: My Active Orders 05/20/20 14:20 EKG Documentation Completion [RC] STAT UA RFX RYLEE AND CULT IF INDIC [URIN] Stat Sodium Chloride 0.9% [Saline Flush] 10 ml FLUSH ASDIRECTED PRN Sodium Chloride 0.9% [Saline Flush] 2.5 ml FLUSH ASDIRECTED PRN Saline Lock Insert [OM.PC] Stat 05/20/20 14:21 RT Aerosol Therapy [RC] ASDIRECTED 05/20/20 14:32 CULTURE BLOOD [BC] Stat 05/20/20 15:50 Blood Culture x2 Reflex Set [OM.PC] Stat 05/20/20 16:26 CULTURE BLOOD [BC] Stat - Assessment/Plan Last 24 Hours: My Active Orders 05/20/20 14:20 EKG Documentation Completion [RC] STAT UA RFX RYLEE AND CULT IF INDIC [URIN] Stat Sodium Chloride 0.9% [Saline Flush] 10 ml FLUSH ASDIRECTED PRN Sodium Chloride 0.9% [Saline Flush] 2.5 ml FLUSH ASDIRECTED PRN Saline Lock Insert [OM.PC] Stat 05/20/20 14:21 RT Aerosol Therapy [RC] ASDIRECTED 05/20/20 14:32 CULTURE BLOOD [BC] Stat 05/20/20 15:50 Blood Culture x2 Reflex Set [OM.PC] Stat 05/20/20 16:26 CULTURE BLOOD [BC] Stat
--- NOTE | 2020-05-20 15:03 | PCM.SN.2 ---
#1 Interpretation EKG Date: 05/20/20 Time: 15:02 Rhythm: NSR Rate (Beats/Min): 81 [place]: Normal P-Wave: Present QRS: Normal ST-T: Normal QT: Normal CA/PQ Interval: 142 Comparison: NA - No Prior EKG EKG Interpretation Comments: normal EKG
[2020-05-20 15:14] LABS: BLOOD UREA NITROGEN,BUN 26 mg/dL (7.0-18.0); CHLORIDE,CL 106 mmol/L (98-107); GLUCOSE RANDOM 109 mg/dL (74-106); POTASSIUM,K 4.6 mmol/L (3.5-5.1); SODIUM,NA 141 mmol/L (136-145)
--- NOTE | 2020-05-20 15:25 | CR ---
Indication: Shortness of breath Comparison: Single view chest April 06, 2020 Technique: Single AP view chest Findings: There is hyperinflation and chronic interstitial change. There is redemonstration of likely a right apical bulla with associated atelectasis and scar. The cardiomediastinal silhouette is within normal limits. The bony thorax is grossly intact. Impression: Stable hyperinflation and chronic interstitial changes with a right upper lobe bulla similar to previous exam. Dictated by Ravindra Contreras MD @ May 20 2020 3:18PM Signed by Dr. Ravindra Contreras @ May 20 2020 3:23PM
[2020-05-20] MEDS ORDERED: Iopamidol 755 MG/ML 500 ML Multipack Bottle IVPUSH ONE (16:03)
--- NOTE | 2020-05-20 17:02 | CT ---
INDICATION: Chest pain and dyspnea. COMPARISON: 03/03/2020. TECHNIQUE: CT angiography of the chest PE protocol. 60 cc IV Isovue-370. FINDINGS: No filling defect to indicate acute PE. Heart is normal in size. No pericardial effusion. Right hilar soft tissue density appears similar to prior. Left renal cyst is again noted. Degenerative changes in the spine. Emphysema is again noted. No pleural effusion or pneumothorax. Occlusion of distal right upper lobe bronchus appears similar to prior exam. Focal atelectasis/consolidation in the anterior right upper lobe is similar to prior. IMPRESSION: 1. No evidence of acute PE. 2. Moderate to severe emphysema is similar to prior. 3. Occlusion of distal right upper lobe bronchus similar to prior exam and differential includes underlying inflammation, debris or mass. Bronchoscopy is recommended if not recently performed. 4. Focal atelectasis/consolidation is similar to prior exam in the anterior right upper lobe. Please note that all CT scans at this facility use dose modulation, iterative reconstruction, and/or weight-based dosing when appropriate to reduce radiation dose to as low as reasonably achievable. Dictated by Scout Douglas MD @ May 20 2020 4:49PM Signed by Dr. Scout Douglas @ May 20 2020 4:59PM
[2020-05-20 17:25] VITALS: BP 153/95; PULSE 74
== END 2020-05-20 17:38 | disposition home or self-care (01) ==
LOC: MW.ED 14:16
DX: J44.1 Chronic obstructive pulmonary disease with (acute) exacerbation (principal); I10 Essential (primary) hypertension; F41.9 Anxiety disorder, unspecified; F32.9 Major depressive disorder, single episode, unspecified; Z20.828 Contact with and (suspected) exposure to other viral communicable diseases; Z99.81 Dependence on supplemental oxygen
CPT/HCPCS: 36415; 71045; 71275; 80053; 82803; 84484; 85025; 85379; 87040; 93005; 96374; 99285; J2060; Q9967; U0002; 93010; 99283; J7620-GY

== ENCOUNTER 2020-07-18 16:10 | Emergency (ER) | payer MEDICARE, MEDICAID ==
[2020-07-18] MEDS ORDERED: methylPREDNISolone Sodium Succinate 125 MG/2 ML SDV IVPUSH ONE (16:12)
[2020-07-18] MEDS ORDERED: Sodium Chloride 0.9% 2.5 ML Syringe FLUSH PRN (16:12)
[2020-07-18] MEDS ORDERED: Sodium Chloride 0.9% 10 ML Syringe FLUSH PRN (16:12)
[2020-07-18] MEDS ORDERED: Albuterol/Ipratropium 3.0-0.5 MG/3 ML Neb Soln NEB ONE (16:13)
[2020-07-18] MEDS ORDERED: methylPREDNISolone Sodium Succinate 125 MG/2 ML SDV ONE (16:13)
--- NOTE | 2020-07-18 16:26 | EDM.PDOC ---
ED HPI GENERAL MEDICAL PROBLEM - General Chief Complaint: Respiratory Problem Stated Complaint: BREATHING PROBLEM Time Seen by Provider: 07/18/20 16:11 - History of Present Illness INITIAL COMMENTS - FREE TEXT/NARRATIVE: 65-year-old female with a history of significant COPD on 2.5 L O2 at home who ran out of her breathing treatments at unclear time ago but it appears either yesterday or the day before who is presenting in profound respiratory distress. Further history unavailable due to severity of respiratory distress - Related Data Allergies Allergy/AdvReac Type Severity Reaction Status Date / Time No Known Allergies Allergy Verified 07/18/20 16:11 Home Meds: Home Meds Venlafaxine HCl [Venlafaxine ER] 150 mg PO DAILY 09/22/18 [History] cloNIDine [Catapres] 0.1 mg PO BID 09/22/18 [History] Umeclidinium [place] [Incruse Ellipta*] 1 puff IH DAILY 05/19/19 [History] Escitalopram [Lexapro] 20 mg PO DAILY 08/06/19 [History] Oxybutynin 5 mg PO BID 08/06/19 [History] lisinopriL [Zestril] 10 mg PO DAILY 08/06/19 [History] Simvastatin [Zocor] 10 mg PO BEDTIME 09/01/19 [History] Acetaminophen [Tylenol] 650 mg PO Q6H PRN #20 tablet 11/16/19 [Rx] Hydrocodone/Acetaminophen [[place] 7.5-325 Tablet] 1 each PO Q4HR PRN #14 tablet 02/18/20 [Rx] Albuterol Sulfate [Albuterol Sulfate Hfa] 2 puff IH BID 03/01/20 [History] Budesonide/Formoterol [Symbicort 160-4.5 MCG] 1 puff INH BID 03/01/20 [History] LORazepam [Lorazepam] 0.5 mg PO BID PRN 03/01/20 [History] Ondansetron [Zofran] 4 mg PO Q6H PRN 03/01/20 [History] Verapamil [Calan] 40 mg PO TID 03/01/20 [History] Fluticasone Propionate 1 dose RAMSES ASDIRECTED 03/11/20 [History] Diphenhyd/Lidocaine/Nystatin [Magic Mouthwash] 5 ml PO QIDACANDBED PRN 04/06/20 [History] Omeprazole 20 mg PO DAILY 04/06/20 [History] Ciprofloxacin [Ciprofloxacin HCl] 500 mg PO BID 6 Days #12 tab 04/10/20 [Rx] Fluconazole [Diflucan] 100 mg PO DAILY 7 Days #7 tablet 04/10/20 [Rx] metroNIDAZOLE [Metronidazole] 500 mg PO Q8H 6 Days #18 tablet 04/10/20 [Rx] traMADol [Ultram] 50 mg PO Q8H PRN 4 Days #12 tab 04/10/20 [Rx] Albuterol/Ipratropium [DuoNeb 3.0-0.5 MG/3 ML] 1 ampule INH Q4HR PRN #1 box 05/20/20 [Rx] predniSONE [Prednisone] 40 mg PO DAILY 5 Days #10 tablet 05/20/20 [Rx] Past Medical History - Past Health History Medical/Surgical History: Denies Medical/Surgical History HEENT History: Reports: Other (See Below) Other HEENT History: wears glasses Cardiovascular History: Reports: Hypertension Respiratory History: Reports: COPD, Other (See Below) Other Respiratory History: Home O2 @ 2LPM Gastrointestinal History: Reports: Diverticulosis Genitourinary History: Reports: Other (See Below) Other Genitourinary History: kidney stones DA[employer]Y [employer] 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 History: Reports: Musculoskeletal History: Reports: None Neurological History: Reports: None Psychiatric History: Reports: Addiction, Anxiety, Depression Endocrine/Metabolic History: Reports: None Insulin Pump Model and General Lithographic Worker: None Hematologic History: Reports: None Immunologic History: Reports: None Oncologic (Cancer) History: Reports: None Dermatologic History: Reports: None - Infectious Disease History Infectious Disease History: Reports: Hepatitis C Other Infectious Disease History: unsure of which kind of hepatitis - Past Surgical History Head Surgeries/Procedures: Reports: None HEENT Surgical History: Reports: None Cardiovascular Surgical History: Reports: None Respiratory Surgical History: Reports: None GI Surgical History: Reports: Appendectomy Female Surgical History: Reports: None Endocrine Surgical History: Reports: None Neurological Surgical History: Reports: None Musculoskeletal Surgical History: Reports: Other (See Below) Other Musculoskeletal Surgeries/Procedures:: rt shoulder surg Oncologic Surgical History: Reports: None Dermatological Surgical History: Reports: None Social & Family History - Family History Family Medical History: No Pertinent Family History Respiratory: Reports: Asthma, COPD : Reports: Renal Disease/Insufficiency Psychiatric: Reports: Anxiety, Depression Endocrine/Metabolic: Reports: Diabetes, type II Oncologic: Reports: Hodgkin's Lymphoma - Tobacco Use Tobacco Use Status *Q: Unknown Ever Used Tobacco - Caffeine Use Caffeine Use: Reports: None Caffeine Use Comment: 4-5 cups a day - Recreational Drug Use Recreational Drug Use: No - Living Situation & Occupation Living situation: Reports: Single ED ROS GENERAL - Review of Systems Review Of Systems: Unable To Obtain Reason Not Obtained: Respiratory distress ED EXAM, GENERAL - Physical Exam Exam: See Below Free Text/Narrative:: General Appearance: Moderate to severe respiratory distress Skin: No rash HEENT: Normocephalic/atraumatic, sclera anicteric, mucous membranes moist Neck: Normal range of motion Chest and Lungs: Loud expiratory coarse wheezing audible across the room associated with prolonged expiratory phase tachypnea and peripheral cyanosis Cardiovascular: Tachycardic rate regular rhythm Abdomen: Soft, non-tender Back: Normal Musculoskeletal: No edema or tenderness Neurologic: Awake, alert, no obvious deficits, moving all extremities Psychiatric: Appropriate, cooperative ED RESPIRATORY PROCEDURES - Endotracheal Intubation Time of Intubation: 16:55 ET Intubation Indication: Respiratory Failure Preparation: Suction, Balloon Tested, BVM Set Up Pre-Oxygenation: 100% FiO2 Anesthesia Meds: Other (20mg etomidate, 120 mg succ) Placement: Orotracheal Cords Visualized: Yes, Grade 1 ETT Size In mm: 7 Number of Attempts: 1 Confirmed By: CO2 Indicator, Bilateral Breath Sounds, Chest Xray Tube Secured By: By RT Endotracheal Intubation Comment: Patient was intubated with a grade 1 view MAC 3 glide scope she did have a very small pea-sized volume of gastric contents at the opening of the larynx she did not have any frothy sputum or other contents noted on indirect laryngoscopy Course - Vital Signs Last Recorded V/S: Last Vital Signs Temp 98.1 F 07/18/20 16:13 Pulse 104 H 07/18/20 16:13 Resp 30 H 07/18/20 16:13 BP 154/81 H 07/18/20 16:13 Pulse Ox 75 L 07/18/20 16:13 - Orders/Labs/Meds Orders: Active Orders 24 hr Category Date Time Status EKG Documentation Completion [RC] STAT Care 07/18/20 16:14 Active RASS Sedation Scale [RC] ASDIRECTED Care 07/18/20 16:47 Active RT Aerosol Therapy [RC] ASDIRECTED Care 07/18/20 16:13 Active B-TYPE NATRIURETIC PEPTIDE,BNP [CHEM] Stat Lab 07/18/20 16:15 Received COVID-19/FLU A+B [MOLEC] Stat Lab 07/18/20 16:21 Ordered Sodium Chloride 0.9% [Saline Flush] Med 07/18/20 16:12 Active 10 ml FLUSH ASDIRECTED PRN Sodium Chloride 0.9% [Saline Flush] Med 07/18/20 16:12 Active 2.5 ml FLUSH ASDIRECTED PRN propofoL [Diprivan 100 ML] 100 ml Med 07/18/20 17:00 Active IV TITRATE BiPAP [RESPCARE] Stat Oth 07/18/20 16:13 Active Desired Level of Sedation (RASS) [AST] Click to Edit Oth 07/18/20 16:47 Ordered Saline Lock Insert [OM.PC] Stat Oth 07/18/20 16:12 Ordered Medication Orders Propofol (Diprivan 100 Ml) 100 mls @ 1.713 mls/hr IV TITRATE YASIR; Protocol Sodium Chloride (Saline Flush) 10 ml FLUSH ASDIRECTED PRN PRN Reason: Keep Vein Open Last Admin: 07/18/20 16:17 Dose: 10 ml Documented by: BONITA Sodium Chloride (Saline Flush) 2.5 ml FLUSH ASDIRECTED PRN PRN Reason: Keep Vein Open Last Admin: 07/18/20 16:17 Dose: 2.5 ml Documented by: BONITA Labs: Laboratory Tests 07/18/20 07/18/20 07/18/20 Range/Units 16:15 16:15 16:15 WBC 7.85 (4.0-11.0) K/uL RBC 4.35 (4.30-5.90) M/uL Hgb 11.9 L (12.0-16.0) g/dL Hct 36.9 (36.0-46.0) % MCV 84.8 (80.0-98.0) fL MCH 27.4 (27.0-32.0) pg MCHC 32.2 (31.0-37.0) g/dL RDW Std Deviation 45.4 (28.0-62.0) fl RDW Coeff of Jamil 15 (11.0-15.0) % Plt Count 289 (150-400) K/uL MPV 10.20 (7.40-12.00) fL Neut % (Auto) 85.5 H (48.0-80.0) % Lymph % (Auto) 13.6 L (16.0-40.0) % [place] % (Auto) 0.8 (0.0-15.0) % Eos % (Auto) 0.0 (0.0-7.0) % Baso % (Auto) 0.1 (0.0-1.5) % Neut # (Auto) 6.7 H (1.4-5.7) K/uL Lymph # (Auto) 1.1 (0.6-2.4) K/uL [place] # (Auto) 0.1 (0.0-0.8) K/uL Eos # (Auto) 0.0 (0.0-0.7) K/uL Baso # (Auto) 0.0 (0.0-0.1) K/uL Nucleated RBC % 0.0 /100WBC Nucleated RBCs # 0 K/uL VBG pH 7.26 L (7.31-7.41) VBG pCO2 42 (35-45) mmHG VBG pO2 76 H (30-40) mmHG VBG HCO3 19 L (22-30) mEq/L VBG Total CO2 18 L (41-51) mmol/L VBG Base Excess -8.0 L (-3.0-3.0) Lactate (0.20-2.00) mmol/L Sodium 139 (136-145) mmol/L Potassium 4.8 (3.5-5.1) mmol/L Chloride 103 (98-107) mmol/L Carbon Dioxide 18.7 L (21.0-32.0) mmol/L BUN 31 H (7.0-18.0) mg/dL Creatinine 1.7 H (0.6-1.0) mg/dL Est Cr Clr Drug Dosing TNP Estimated GFR (MDRD) 30.3 ml/min Glucose 230 H (74-106) mg/dL Calcium 9.1 (8.5-10.1) mg/dL Total Bilirubin 0.3 (0.2-1.0) mg/dL AST 21 (15-37) IU/L ALT 16 (14-63) IU/L Alkaline Phosphatase 103 (46-116) U/L Troponin I < 0.050 (0.000-0.056) ng/mL Total Protein 9.0 H (6.4-8.2) g/dL Albumin 4.5 (3.4-5.0) g/dL Globulin 4.5 H (2.6-4.0) g/dL Albumin/Globulin Ratio 1.0 (0.9-1.6) 07/18/20 Range/Units 16:15 WBC (4.0-11.0) K/uL RBC (4.30-5.90) M/uL Hgb (12.0-16.0) g/dL Hct (36.0-46.0) % MCV (80.0-98.0) fL MCH (27.0-32.0) pg MCHC (31.0-37.0) g/dL RDW Std Deviation (28.0-62.0) fl RDW Coeff of Jamil (11.0-15.0) % Plt Count (150-400) K/uL MPV (7.40-12.00) fL Neut % (Auto) (48.0-80.0) % Lymph % (Auto) (16.0-40.0) % [place] % (Auto) (0.0-15.0) % Eos % (Auto) (0.0-7.0) % Baso % (Auto) (0.0-1.5) % Neut # (Auto) (1.4-5.7) K/uL Lymph # (Auto) (0.6-2.4) K/uL [place] # (Auto) (0.0-0.8) K/uL Eos # (Auto) (0.0-0.7) K/uL Baso # (Auto) (0.0-0.1) K/uL Nucleated RBC % /100WBC Nucleated RBCs # K/uL VBG pH (7.31-7.41) VBG pCO2 (35-45) mmHG VBG pO2 (30-40) mmHG VBG HCO3 (22-30) mEq/L VBG Total CO2 (41-51) mmol/L VBG Base Excess (-3.0-3.0) Lactate 2.7 H* (0.20-2.00) mmol/L Sodium (136-145) mmol/L Potassium (3.5-5.1) mmol/L Chloride (98-107) mmol/L Carbon Dioxide (21.0-32.0) mmol/L BUN (7.0-18.0) mg/dL Creatinine (0.6-1.0) mg/dL Est Cr Clr Drug Dosing Estimated GFR (MDRD) ml/min Glucose (74-106) mg/dL Calcium (8.5-10.1) mg/dL Total Bilirubin (0.2-1.0) mg/dL AST (15-37) IU/L ALT (14-63) IU/L Alkaline Phosphatase (46-116) U/L Troponin I (0.000-0.056) ng/mL Total Protein (6.4-8.2) g/dL Albumin (3.4-5.0) g/dL Globulin (2.6-4.0) g/dL Albumin/Globulin Ratio (0.9-1.6) Meds: Medications Generic Name Dose Route Start Last Admin Trade Name Freq PRN Reason Stop Dose Admin Propofol 100 mls @ 1.713 mls/hr 07/18/20 17:00 Diprivan 100 Ml IV TITRATE YASIR Protocol 5 MCG/KG/MIN Sodium Chloride 10 ml 07/18/20 16:12 07/18/20 16:17 Saline Flush FLUSH 10 ml ASDIRECTED PRN Administration Keep Vein Open Sodium Chloride 2.5 ml 07/18/20 16:12 07/18/20 16:17 Saline Flush FLUSH 2.5 ml ASDIRECTED PRN Administration Keep Vein Open Discontinued Medications Generic Name Dose Route Start Last Admin Trade Name Freq PRN Reason Stop Dose Admin Albuterol 2.5 mg 07/18/20 16:28 07/18/20 16:32 Proventil Neb Soln NEB 07/18/20 16:29 2.5 mg ONETIME ONE Administration Albuterol 2.5 mg 07/18/20 16:29 07/18/20 16:42 Proventil Neb Soln NEB 07/18/20 16:30 2.5 mg ONETIME ONE Administration Albuterol 2.5 mg 07/18/20 16:29 Proventil Neb Soln NEB 07/18/20 16:30 ONETIME ONE Albuterol/Ipratropium 3 ml 07/18/20 16:13 07/18/20 16:18 Duoneb 3.0-0.5 Mg/3 Ml NEB 07/18/20 16:14 3 ml ONETIME ONE Administration Etomidate 20 mg 07/18/20 16:43 Amidate IVPUSH 07/18/20 16:44 ONETIME ONE Propofol Confirm 07/18/20 16:48 Diprivan 100 Ml Administered 07/18/20 16:49 Dose 100 mls @ as directed .ROUTE .STK-MED ONE Methylprednisolone Sodium Succinate 125 mg 07/18/20 16:12 07/18/20 16:16 Solu-Medrol IVPUSH 07/18/20 16:13 125 mg ONETIME ONE Administration Methylprednisolone Sodium Succinate Confirm 07/18/20 16:13 07/18/20 16:18 Solu-Medrol Administered 07/18/20 16:14 Not Given Dose 125 mg .ROUTE .STK-MED ONE Succinylcholine Chloride 120 mg 07/18/20 16:43 Succinylcholine Chloride IV 07/18/20 16:44 ONETIME ONE Departure - Departure Time of Disposition: 17:06 Disposition: DC/Tfer to Acute Hospital 02 Condition: Serious Clinical Impression: COPD exacerbation - Discharge Information *PRESCRIPTION DRUG MONITORING PROGRAM REVIEWED*: Not Applicable *COPY OF PRESCRIPTION DRUG MONITORING REPORT IN PATIENT KARIE: Not Applicable Referrals: PCP,None [Primary Care Provider] - Forms: ED Department Discharge Critical Care Note - Critical Care Note Total Time (mins): 50 Comments: Patient required intensive management with myself at the bedside for a prolonged period of time due to severe respiratory distress and risk of respiratory decompensation and failure Sepsis Event Note (ED) - Evaluation Sepsis Screening Result: Possible Sepsis Risk - Focused Exam Vital Signs: Vital Signs Temp Pulse Resp BP Pulse Ox 07/18/20 16:13 98.1 F 104 H 30 H 154/81 H 75 L - My Orders Last 24 Hours: My Active Orders 07/18/20 16:12 Sodium Chloride 0.9% [Saline Flush] 10 ml FLUSH ASDIRECTED PRN Sodium Chloride 0.9% [Saline Flush] 2.5 ml FLUSH ASDIRECTED PRN Saline Lock Insert [OM.PC] Stat 07/18/20 16:13 RT Aerosol Therapy [RC] ASDIRECTED BiPAP [RESPCARE] Stat 07/18/20 16:14 EKG Documentation Completion [RC] STAT 07/18/20 16:15 B-TYPE NATRIURETIC PEPTIDE,BNP [CHEM] Stat 07/18/20 16:21 COVID-19/FLU A+B [MOLEC] Stat 07/18/20 16:47 RASS Sedation Scale [RC] ASDIRECTED Desired Level of Sedation (RASS) [AST] Click to Edit 07/18/20 17:00 propofoL [Diprivan 100 ML] 100 ml IV TITRATE - Assessment/Plan Last 24 Hours: My Active Orders 07/18/20 16:12 Sodium Chloride 0.9% [Saline Flush] 10 ml FLUSH ASDIRECTED PRN Sodium Chloride 0.9% [Saline Flush] 2.5 ml FLUSH ASDIRECTED PRN Saline Lock Insert [OM.PC] Stat 07/18/20 16:13 RT Aerosol Therapy [RC] ASDIRECTED BiPAP [RESPCARE] Stat 07/18/20 16:14 EKG Documentation Completion [RC] STAT 07/18/20 16:15 B-TYPE NATRIURETIC PEPTIDE,BNP [CHEM] Stat 07/18/20 16:21 COVID-19/FLU A+B [MOLEC] Stat 07/18/20 16:47 RASS Sedation Scale [RC] ASDIRECTED Desired Level of Sedation (RASS) [AST] Click to Edit 07/18/20 17:00 propofoL [Diprivan 100 ML] 100 ml IV TITRATE Assessment:: 65-year-old female presenting in respiratory distress likely from severe COPD exacerbation I evaluated the patient immediately upon her arriving in the emergency department patient was given 125 of Solu-Medrol and immediately placed on BiPAP she received a DuoNeb and will receive 3 additional albuterol neb treatments through the BiPAP. Patient feels like it is helping somewhat but she does appear to still be in respiratory distress. We will continue to monitor the patient closely if she does not improve she will need intubation and patient nods understanding of this. Given her profound exam findings and the fact that she ran out of her breathing treatment is a clear trigger I do not think this represents a PE. In any case the patient is not currently stable for CT. Primary ACS is likewise felt unlikely profound CHF and flash pulmonary edema likewise felt unlikely given lack of findings of crackles on exam. Chest x-ray likewise without severe edema. Covid considered I think it is unlikely as the patient had proven Covid in January of last year. Relevant labs pending patient will require either admission to the ICU here or transfer depending on her clinical course. 1700: Pt only minimally improved on BiPaP. The patient and I discussed this and we agreed to proceed with intubation. Pt was given 20 mg etomidate and 120mg succ and intubated with a MAC 3 glide scope with no immediate complication and no desaturation. Pt was then given a 50 mg propofol and started on a propofol gtt. Pt was given 75mcg fentanyl and an additional 50mg propofol bolus for sedation. Pt was accepted for transfer to [place] by Dr. Latham at 1704.
[2020-07-18] MEDS ORDERED: Albuterol 0.083% 2.5 MG/3 ML Neb Soln NEB ONE ×3 (16:28→16:29)
--- NOTE | 2020-07-18 16:39 | CR ---
INDICATION: Severe dyspnea. TECHNIQUE: One portable view of the chest. COMPARISON: And chest CT 05/20/2025 and chest radiograph 05/20/2020. FINDINGS: Normal cardiomediastinal silhouette size. Severe emphysematous changes and flattening of the diaphragm consistent with COPD. Atelectasis/scarring in the right midlung is unchanged. No new focal pulmonary opacity, pleural effusion or pneumothorax. The visualized osseous structures are unremarkable for age. IMPRESSION: Severe emphysema. No acute cardiopulmonary abnormality. Dictated by Mikaela Douglas MD @ Jul 18 2020 4:35PM Signed by Dr. Mikaela Douglas @ Jul 18 2020 4:38PM
[2020-07-18] MEDS ORDERED: Etomidate 2 MG/ML 20 ML SDV IVPUSH ONE (16:43)
[2020-07-18] MEDS ORDERED: propofoL 100 ML ONE ×2 (16:48→17:39)
[2020-07-18 16:49] LABS: BLOOD UREA NITROGEN,BUN 31 mg/dL (7.0-18.0); CARBON DIOXIDE,CO2 18.7 mmol/L (21.0-32.0); CHLORIDE,CL 103 mmol/L (98-107); GLUCOSE RANDOM 230 mg/dL (74-106); POTASSIUM,K 4.8 mmol/L (3.5-5.1); SODIUM,NA 139 mmol/L (136-145)
[2020-07-18] MEDS ORDERED: propofoL 100 ML IV SCH (17:00)
[2020-07-18] MEDS ORDERED: fentaNYL 100 MCG/2 ML SDV ONE ×3 (17:02→17:45)
[2020-07-18] MEDS ORDERED: fentaNYL 50 MCG/ML SDV IVPUSH ONE ×3 (17:04→17:13)
[2020-07-18] MEDS ORDERED: fentaNYL 100 MCG/2 ML SDV IVPUSH PRN (17:10)
--- NOTE | 2020-07-18 17:34 | CR ---
INDICATION: Post intubation TECHNIQUE: Single view chest. Comparison chest x-ray 07/18/2020 no report available. FINDINGS: Endotracheal tube 4.5 centimeters above the lucas. Enteric tube in the stomach. Lungs are clear of acute airspace or interstitial process. No effusion or pneumothorax. Dictated by Ambreen Rosado MD @ Jul 18 2020 5:31PM Signed by Dr. Ambreen Rosado @ Jul 18 2020 5:32PM
--- NOTE | 2020-07-18 17:39 | PCM.EKG ---
#1 Interpretation EKG Date: 07/18/20 Time: 17:38 EKG Interpretation Comments: EKG demonstrates sinus rhythm with a rate of 99 prolonged QT at 531 otherwise normal intervals no acute ischemia
[2020-07-18 17:47] LABS: CORONAVIRUS COVID-19 NAA NEGATIVE (NEGATIVE); INFLUENZA A NAA NEGATIVE (NEGATIVE); INFLUENZA B NAA NEGATIVE (NEGATIVE)
[2020-07-18 18:10] VITALS: BP 105/59; PULSE 94
== END 2020-07-18 17:36 ==
LOC: MW.ED 16:10
DX: J44.1 Chronic obstructive pulmonary disease with (acute) exacerbation (principal); I10 Essential (primary) hypertension; Z79.899 Other long term (current) drug therapy; Z20.822 Contact with and (suspected) exposure to COVID-19
CPT/HCPCS: 0240U; 31500; 36415; 71045; 80053; 82803; 83605; 83880; 84484; 85025; 93005; 94660; 96365; 96375; 99285; J0330; J2704; J2930; J3010; J3490; 93010; 99291; J7620-GY

== ENCOUNTER 2020-09-08 12:03 | Emergency (ER) | payer MEDICARE, MEDICAID ==
[2020-09-08] MEDS ORDERED: Lactated Ringers 1,000 ML IV ONE (12:49)
[2020-09-08] MEDS ORDERED: ceFAZolin 1 GM in Premix Bag 1 BAG IV ONE (12:51)
[2020-09-08] MEDS ORDERED: Morphine 4 MG/ML Syringe IVPUSH ONE ×2 (13:11→17:04)
[2020-09-08] MEDS ORDERED: VANCOmycin 1.5 GM/300 ML 1.5 GM in Premix Bag 1 BAG IV ONE (13:45)
[2020-09-08 13:58] LABS: CARBON DIOXIDE,CO2 26.3 mmol/L (21.0-32.0); POTASSIUM,K 3.8 mmol/L (3.5-5.1)
[2020-09-08] MEDS ORDERED: Iopamidol 755 MG/ML 500 ML Multipack Bottle IVPUSH STA (15:05)
--- NOTE | 2020-09-08 15:38 | CT ---
INDICATION: Infection. Assess for abscess or free air. COMPARISON: None. TECHNIQUE: 100 mL Isovue-370 IV contrast with imaging from mid humerus through finger tips. Axial, coronal and sagittal reformats. FINDINGS: There is an irregularly margined abscess volar radial distal forearm superficial to the flexor carpi radialis and flexor digitorum musculotendinous junctions. Some fluid infiltrates in the tissue plane between the 2 muscles to the underlying flexor pollicis muscle. No associated soft tissue air appreciated. Rough estimated axial diameter 2.2 x 1.4 cm and the proximal to distal length of 3.4 cm. Hazy and reticular overlying subcutaneous edema. Distally no tenosynovitis is appreciated. Moderate edema extends into the hand. No bone finding of significance. Anatomic alignment at the elbow and wrist. IMPRESSION: Moderately large infiltrating soft tissue abscess volar radial distal forearm. Please note that all CT scans at this facility use dose modulation, iterative reconstruction, and/or weight-based dosing when appropriate to reduce radiation dose to as low as reasonably achievable. Dictated by Mik White MD @ Sep 08 2020 3:36PM (Electronically Signed)
[2020-09-08 17:44] VITALS: BP 141/83; PULSE 63
--- NOTE | 2020-09-08 18:44 | EDM.PDOC ---
ED HPI GENERAL MEDICAL PROBLEM - General Chief Complaint: Upper Extremity Injury/Pain Stated Complaint: RIGHT HAND/WRIST SWOLLEN Time Seen by Provider: 09/08/20 12:21 - History of Present Illness INITIAL COMMENTS - FREE TEXT/NARRATIVE: CHIEF COMPLAINT(S): Right arm pain HISTORY OF PRESENT ILLNESS: This is a 65-year-old woman with a past medical history of COPD on 2 L home oxygen and hypertension who comes to the emergency department with a chief complaint of right arm pain. The patient states that for approximately 4 days now she has been experiencing right arm pain, redness, and swelling. She describes her pain as burning and intermittently itching rated 6-8 out of 10. She denies any radiation of this pain, numbness, tingling, or weakness. She states that she has not yet tried anything for pain but given the redness and swelling she came to the emergency department. She states that anytime he touches it worsens the pain. She denies any GERD decreased range of motion of her fingers. She states that this initially started when she was cleaning 1/5 wheel which had some dirty tools. She denies any IV drug use. REVIEW OF SYSTEMS: Constitutional: Denies fever, chills. Eyes: Denies eye pain Ears, Nose, Mouth, & Throat: Denies earache Cardiovascular: Denies chest pain Respiratory: Denies shortness of breath Gastrointestinal: Denies Nausea, vomiting, diarrhea, hematochezia. Genitourinary: Denies hematuria Skin: Positive for swelling, redness to right arm MSK: Positive for right arm pain Neurological: Denies blurred vision, numbness, tingling, weakness Psychiatric: Denies depression PAST MEDICAL HISTORY: As per history of present illness and as reviewed below otherwise noncontributory. SURGICAL HISTORY: As per history of present illness and as reviewed below otherwise noncontributory. SOCIAL HISTORY: As per history of present illness and as reviewed below otherwise noncontributory. FAMILY HISTORY: As per history of present illness and as reviewed below otherwise noncontributory. EXAMINATION OF ORGAN SYSTEMS/BODY AREAS: Constitutional: Blood pressure is 149/81, heart rate 92, respiratory rate 26 with an oxygen saturation 98% on 2 L nasal cannula. Temperature 36.8 General: Who appears to be in no acute distress. Psychiatric: Appropriate mood and affect. Eyes: No scleral icterus or conjunctival erythema ENMT: Moist mucous membranes. No pharyngeal erythema Cardiovascular: Regular, rate, and rhythm. No gallops, murmurs, or rubs. Bilateral upper extremity pulses symmetric and intact. No peripheral edema. No JVD. Respiratory: Lungs clear to auscultation bilaterally. No wheezes, rales, or rhonchi. Gastrointestinal: Soft, non-tender, non-distended. Normoactive bowel sounds Genitourinary: No suprapubic tenderness Musculoskeletal: Patient has full range of motion of all the digits on her right hand. There is no medial or lateral wrist tenderness. Full range of motion at the elbow. Full range of motion at the shoulder. Skin: There is an area on the anterior distal forearm that is fluctuant, indurated with pustules. Otherwise there is some swelling of the hand with some erythema and the erythema also extends to the elbow. There is no crepitus. Neurological: Alert, GCS 15 strength and sensation grossly intact MEDICAL DECISION MAKING AND COURSE IN THE ED WITH INTERPRETATION/REVIEW OF DIAGNOSTIC STUDIES: This is a 65-year-old woman with a past medical history of COPD on 2 L home oxygen and hypertension who comes to the emergency department with 4 days of worsening right forearm pain and redness with an examination revealing possible abscess and cellulitis. There is no crepitus however we will obtain a CT with contrast of the upper extremity to evaluate for free air and abscess. The pain is not out of proportion however necrotizing fasciitis is a consideration. The patient denies any IV drug use however in the patient's chart she does have a history of methamphetamine in her urine. I do not see any track dixon on the patient's arms. We will provide the patient with morphine 4 mg IV for pain relief and obtain CBC, BMP, Covid, lactic acid, magnesium. We will provide the patient with 1 L of lactated Ringer's bolus. Patient does not have any vitals suggesting Sirs or sepsis at this time we will reevaluate after laboratory analysis, lactic acidosis. We will start the patient on vancomycin and cefazolin. RN notified me that they were unable to obtain IV access. Therefore, I did place ultrasound-guided IV with 18-gauge IV in the left basilic vein. No complications noted. Laboratory: CBC reveals a leukocytosis of 21.40 with neutrophilic predominance without left shift. Lactic acid was 1.1. BMP reveals a BUN of 28 and a creatinine of 1.1 which appears to be unchanged from prior. Magnesium is 1.8. Covid is negative. Given the elevated white count I did send blood cultures however at this time no further IV fluids will be administered and 30 cc/kg will not be given as the patient does not have a systolic less than 90 or lactic acid greater than 4. Patient was taken to CT however the patient's IV did fail. Therefore using ultrasound guidance I did place an 18-gauge in the left antecubital fossa. No complications noted. The radiological images were viewed by myself along with reading the report from the radiologist. CT of the upper extremity of the right with contrast reveals an irregularly marginated abscess on the volar radial distal forearm superficial to the flexor carpi radialis and flexor digitorum musculotendinous junctions. There is some fluid infiltrates in the tissue plane between 2 muscles to the underlying flexor pollicis muscle. No soft tissue air. This is roughly estimated to be 2.2 x 1.4 x 3.4 cm. There is swelling to the hand. No distal tenosynovitis is appreciated. After imaging given that the fact that we do not have orthopedics here at our institution I did contact [facility] in [place] and spoke with Dr. Jaimes hand surgeon who stated the patient does need incision and drainage however if general surgery is comfortable at our institution they could perform the incision and drainage. Otherwise he is amenable to transfer for incision and drainage. I contacted Dr. King and spoke with our general surgery about the patient's imaging and abscess. He did review the images and at this time given that it is in between the muscles and the location he does not feel comfortable performing this procedure in-house. Therefore I contacted [facility] in [place] and spoke with Dr. Saldivar and the patient will be transferred to their institution for admission and evaluation by hand surgery. This was all discussed with the patient prior to contacting specialist. She was amenable to transfer at this time. DISPOSITION: Patient was transferred to [facility] in stable condition CONDITION: Serious PROCEDURES: Ultrasound-guided IV x2 FINAL IMPRESSION(S)/DIAGNOSES: 1. Acute right forearm abscess 2. Acute right forearm cellulitis Haim Mae M.D. right fingers to elbow Pain Score (Numeric/FACES): 8 - Related Data Allergies Allergy/AdvReac Type Severity Reaction Status Date / Time No Known Allergies Allergy Verified 03/31/21 12:28 Home Meds: Home Meds Venlafaxine HCl [Venlafaxine ER] 150 mg PO DAILY 09/22/18 [History] cloNIDine [Catapres] 0.1 mg PO BID 09/22/18 [History] Umeclidinium Waldo [Incruse Ellipta*] 1 puff IH DAILY 05/19/19 [History] Escitalopram [Lexapro] 20 mg PO DAILY 08/06/19 [History] Oxybutynin 5 mg PO DAILY 08/06/19 [History] lisinopriL [Zestril] 20 mg PO DAILY 08/06/19 [History] Simvastatin [Zocor] 10 mg PO BEDTIME 09/01/19 [History] Acetaminophen [Tylenol] 650 mg PO Q6H PRN #20 tablet 11/16/19 [Rx] Albuterol Sulfate [Albuterol Sulfate Hfa] 2 puff IH BID 03/01/20 [History] Budesonide/Formoterol [Symbicort 160-4.5 MCG] 1 puff INH BID 03/01/20 [History] LORazepam [Lorazepam] 0.5 mg PO BID PRN 03/01/20 [History] Verapamil [Calan] 40 mg PO DAILY 03/01/20 [History] Fluticasone Propionate 1 dose RAMSES ASDIRECTED 03/11/20 [History] Diphenhyd/Lidocaine/Nystatin [Magic Mouthwash] 5 ml PO QIDACANDBED PRN 04/06/20 [History] Omeprazole 20 mg PO DAILY 04/06/20 [History] Albuterol/Ipratropium [DuoNeb 3.0-0.5 MG/3 ML] 1 ampule INH Q4HR PRN #1 box 05/20/20 [Rx] predniSONE [Prednisone] 40 mg PO DAILY 5 Days #10 tablet 05/20/20 [Rx] Past Medical History - Past Health History Medical/Surgical History: Denies Medical/Surgical History HEENT History: Reports: Other (See Below) Other HEENT History: wears glasses Cardiovascular History: Reports: Hypertension Respiratory History: Reports: COPD, Other (See Below) Other Respiratory History: Home O2 @ 2LPM Gastrointestinal History: Reports: Diverticulosis Genitourinary History: Reports: Other (See Below) Other Genitourinary History: kidney stones BEFORE SCHOOL History: Reports: Musculoskeletal History: Reports: None Neurological History: Reports: None Psychiatric History: Reports: Addiction, Anxiety, Depression Endocrine/Metabolic History: Reports: None Insulin Pump Model and Ludlow Machine Operator: None Hematologic History: Reports: None Immunologic History: Reports: None Oncologic (Cancer) History: Reports: None Dermatologic History: Reports: None - Infectious Disease History Infectious Disease History: Reports: Chicken Pox, Hepatitis C, Measles, Mumps, Novel Coronavirus Other Infectious Disease History: unsure of which kind of hepatitis - Past Surgical History Head Surgeries/Procedures: Reports: None HEENT Surgical History: Reports: None Cardiovascular Surgical History: Reports: None Respiratory Surgical History: Reports: None GI Surgical History: Reports: Appendectomy Female Surgical History: Reports: None Endocrine Surgical History: Reports: None Neurological Surgical History: Reports: None Musculoskeletal Surgical History: Reports: Other (See Below) Other Musculoskeletal Surgeries/Procedures:: rt shoulder surg Oncologic Surgical History: Reports: None Dermatological Surgical History: Reports: None Social & Family History - Family History Family Medical History: No Pertinent Family History Respiratory: Reports: Asthma, COPD : Reports: Renal Disease/Insufficiency Psychiatric: Reports: Anxiety, Depression Endocrine/Metabolic: Reports: Diabetes, type II Oncologic: Reports: Hodgkin's Lymphoma - Tobacco Use Tobacco Use Status *Q: Former Tobacco User Used Tobacco, but Quit: Yes Month/Year Tobacco Last Used: November 2019 - Caffeine Use Caffeine Use: Reports: None Caffeine Use Comment: 4-5 cups a day - Recreational Drug Use Recreational Drug Use: No - Living Situation & Occupation Living situation: Reports: Single Review of Systems - Review of Systems Review Of Systems: See Below ED EXAM, GENERAL - Physical Exam Exam: See Below Course - Vital Signs Last Recorded V/S: Last Vital Signs Temp 36.6 C 09/08/20 17:30 Pulse 63 09/08/20 17:30 Resp 22 H 09/08/20 17:30 BP 141/83 H 09/08/20 17:30 Pulse Ox 96 09/08/20 17:30 - Orders/Labs/Meds Orders: Active Orders 24 hr Category Date Time Status CULTURE BLOOD [BC] Stat Lab 09/08/20 13:05 Received CULTURE BLOOD [BC] Stat Lab 09/08/20 13:27 Received Blood Culture x2 Reflex Set [OM.PC] Stat Oth 09/08/20 13:20 Ordered Labs: Laboratory Tests 09/08/20 09/08/20 09/08/20 Range/Units 13:05 13:05 13:05 WBC 21.40 H (4.0-11.0) K/uL RBC 4.63 (4.30-5.90) M/uL Hgb 12.6 (12.0-16.0) g/dL Hct 40.1 (36.0-46.0) % MCV 86.6 (80.0-98.0) fL MCH 27.2 (27.0-32.0) pg MCHC 31.4 (31.0-37.0) g/dL RDW Std Deviation 48.1 (28.0-62.0) fl RDW Coeff of Jamil 15 (11.0-15.0) % Plt Count 253 (150-400) K/uL MPV 9.70 (7.40-12.00) fL Neut % (Auto) 81.8 H (48.0-80.0) % Lymph % (Auto) 11.6 L (16.0-40.0) % [place] % (Auto) 5.7 (0.0-15.0) % Eos % (Auto) 0.9 (0.0-7.0) % Baso % (Auto) 0.0 (0.0-1.5) % Neut # (Auto) 17.5 H (1.4-5.7) K/uL Lymph # (Auto) 2.5 H (0.6-2.4) K/uL [place] # (Auto) 1.2 H (0.0-0.8) K/uL Eos # (Auto) 0.2 (0.0-0.7) K/uL Baso # (Auto) 0.0 (0.0-0.1) K/uL Nucleated RBC % 0.0 /100WBC Nucleated RBCs # 0 K/uL Lactate 1.1 (0.20-2.00) mmol/L Sodium 139 (136-145) mmol/L Potassium 3.8 (3.5-5.1) mmol/L Chloride 104 (98-107) mmol/L Carbon Dioxide 26.3 (21.0-32.0) mmol/L BUN 28 H (7.0-18.0) mg/dL Creatinine 1.1 H (0.6-1.0) mg/dL Est Cr Clr Drug Dosing 51.80 mL/min Estimated GFR (MDRD) 50.0 ml/min Glucose 76 (74-106) mg/dL Calcium 8.7 (8.5-10.1) mg/dL Magnesium 1.8 (1.8-2.4) mg/dL SARS-CoV-2 RNA (ONOFRE) (NEGATIVE) 09/08/20 Range/Units 14:05 WBC (4.0-11.0) K/uL RBC (4.30-5.90) M/uL Hgb (12.0-16.0) g/dL Hct (36.0-46.0) % MCV (80.0-98.0) fL MCH (27.0-32.0) pg MCHC (31.0-37.0) g/dL RDW Std Deviation (28.0-62.0) fl RDW Coeff of Jamil (11.0-15.0) % Plt Count (150-400) K/uL MPV (7.40-12.00) fL Neut % (Auto) (48.0-80.0) % Lymph % (Auto) (16.0-40.0) % [place] % (Auto) (0.0-15.0) % Eos % (Auto) (0.0-7.0) % Baso % (Auto) (0.0-1.5) % Neut # (Auto) (1.4-5.7) K/uL Lymph # (Auto) (0.6-2.4) K/uL [place] # (Auto) (0.0-0.8) K/uL Eos # (Auto) (0.0-0.7) K/uL Baso # (Auto) (0.0-0.1) K/uL Nucleated RBC % /100WBC Nucleated RBCs # K/uL Lactate (0.20-2.00) mmol/L Sodium (136-145) mmol/L Potassium (3.5-5.1) mmol/L Chloride (98-107) mmol/L Carbon Dioxide (21.0-32.0) mmol/L BUN (7.0-18.0) mg/dL Creatinine (0.6-1.0) mg/dL Est Cr Clr Drug Dosing mL/min Estimated GFR (MDRD) ml/min Glucose (74-106) mg/dL Calcium (8.5-10.1) mg/dL Magnesium (1.8-2.4) mg/dL SARS-CoV-2 RNA (ONOFRE) NEGATIVE (NEGATIVE) Meds: Medications Discontinued Medications Generic Name Dose Route Start Last Admin Trade Name Freq PRN Reason Stop Dose Admin Lactated Ringer's 1,000 mls @ 999 mls/hr 09/08/20 12:49 09/08/20 13:50 Ringers, Lactated IV 09/08/20 13:49 999 mls/hr .BOLUS ONE Administration Cefazolin Sodium/Dextrose 1 gm 50 mls @ 100 mls/hr 09/08/20 12:51 09/08/20 13:53 / Premix IV 09/08/20 13:20 100 mls/hr ONETIME ONE Administration Vancomycin HCl 1.5 gm/ Premix 300 mls @ 200 mls/hr 09/08/20 13:45 09/08/20 15:52 IV 09/08/20 15:14 200 mls/hr ONETIME ONE Administration Iopamidol 100 ml 09/08/20 15:05 09/08/20 16:07 Iopamidol 755 Mg/Ml 500 Ml Multipack Bottle IVPUSH 09/08/20 15:06 100 ml ONETIME STA Administration Morphine Sulfate 4 mg 09/08/20 13:11 09/08/20 13:46 Morphine 4 Mg/Ml Syringe IVPUSH 09/08/20 13:12 4 mg ONETIME ONE Administration Morphine Sulfate 4 mg 09/08/20 17:04 09/08/20 17:11 Morphine 4 Mg/Ml Syringe IVPUSH 09/08/20 17:05 4 mg ONETIME ONE Administration Departure - Departure Time of Disposition: 17:45 Disposition: DC/Tfer to Acute Hospital 02 Condition: Serious Clinical Impression: Abscess - Discharge Information Referrals: Vu Stern MD [Primary Care Provider] - Forms: ED Department Discharge Sepsis Event Note (ED) - Evaluation Sepsis Screening Result: Possible Sepsis Risk - Focused Exam Vital Signs: Vital Signs Temp Pulse Resp BP Pulse Ox 09/08/20 17:30 36.6 C 63 22 H 141/83 H 96 09/08/20 16:52 36.6 C 73 20 132/57 L 99 09/08/20 15:57 66 20 147/88 H 95 09/08/20 15:27 69 20 131/76 98 09/08/20 14:00 75 20 158/71 H 94 L 09/08/20 12:24 36.8 C 92 26 H 149/81 H 98 - My Orders Last 24 Hours: My Active Orders 09/08/20 13:05 CULTURE BLOOD [BC] Stat 09/08/20 13:20 Blood Culture x2 Reflex Set [OM.PC] Stat 09/08/20 13:27 CULTURE BLOOD [BC] Stat - Assessment/Plan Last 24 Hours: My Active Orders 09/08/20 13:05 CULTURE BLOOD [BC] Stat 09/08/20 13:20 Blood Culture x2 Reflex Set [OM.PC] Stat 09/08/20 13:27 CULTURE BLOOD [BC] Stat
== END 2020-09-08 17:45 ==
LOC: MW.ED 12:03
DX: L02.413 Cutaneous abscess of right upper limb (principal); L03.113 Cellulitis of right upper limb; I10 Essential (primary) hypertension; J44.9 Chronic obstructive pulmonary disease, unspecified; Z87.891 Personal history of nicotine dependence; Z20.822 Contact with and (suspected) exposure to COVID-19; Z79.899 Other long term (current) drug therapy; Z99.81 Dependence on supplemental oxygen
CPT/HCPCS: 36415; 73201; 80048; 83605; 83735; 85025; 87040; 96365; 96366; 96367; 96375; 96376; 99285; J0690; J2270; J3370; J7120; Q9967; U0002; 99284

== ENCOUNTER 2020-09-26 16:49 | Emergency (ER) | payer MEDICARE, MEDICAID ==
--- NOTE | 2020-09-26 17:06 | EDM.PDOC ---
ED HPI GENERAL MEDICAL PROBLEM - General Chief Complaint: Wound Recheck Stated Complaint: RT WRIST WOUND CHECK Time Seen by Provider: 09/26/20 16:50 - History of Present Illness INITIAL COMMENTS - FREE TEXT/NARRATIVE: 65-year-old female multiple medical problems most notable for chronic hypoxic respiratory failure and severe COPD presents for wound check. Patient was seen here a number of weeks ago for right volar wrist abscess. She was transferred to [facility] for incision and drainage. They perform this in the OR and she was kept for 3 days prior to being discharged home on antibiotics. She is unable to get back and forth to [facility]. She had been soaking the area and Betadine once a day as recommended by her surgeon. She had been changing the dressing daily until yesterday when she ran out of supplies. No fevers no chills she feels otherwise quite well. She presents for wound check. - Related Data Allergies Allergy/AdvReac Type Severity Reaction Status Date / Time No Known Allergies Allergy Verified 09/26/20 17:04 Home Meds: Home Meds Venlafaxine HCl [Venlafaxine ER] 150 mg PO DAILY 09/22/18 [History] cloNIDine [Catapres] 0.1 mg PO BID 09/22/18 [History] Umeclidinium Fries [Incruse Ellipta*] 1 puff IH DAILY 05/19/19 [History] Escitalopram [Lexapro] 20 mg PO DAILY 08/06/19 [History] Oxybutynin 5 mg PO DAILY 08/06/19 [History] lisinopriL [Zestril] 20 mg PO DAILY 08/06/19 [History] Simvastatin [Zocor] 10 mg PO BEDTIME 09/01/19 [History] Acetaminophen [Tylenol] 650 mg PO Q6H PRN #20 tablet 11/16/19 [Rx] Albuterol Sulfate [Albuterol Sulfate Hfa] 2 puff IH BID 03/01/20 [History] Budesonide/Formoterol [Symbicort 160-4.5 MCG] 1 puff INH BID 03/01/20 [History] LORazepam [Lorazepam] 0.5 mg PO BID PRN 03/01/20 [History] Verapamil [Calan] 40 mg PO DAILY 03/01/20 [History] Fluticasone Propionate 1 dose RAMSES ASDIRECTED 03/11/20 [History] Diphenhyd/Lidocaine/Nystatin [Magic Mouthwash] 5 ml PO QIDACANDBED PRN 04/06/20 [History] Omeprazole 20 mg PO DAILY 04/06/20 [History] Albuterol/Ipratropium [DuoNeb 3.0-0.5 MG/3 ML] 1 ampule INH Q4HR PRN #1 box 05/20/20 [Rx] predniSONE [Prednisone] 40 mg PO DAILY 5 Days #10 tablet 05/20/20 [Rx] Past Medical History - Past Health History Medical/Surgical History: Denies Medical/Surgical History HEENT History: Reports: Other (See Below) Other HEENT History: wears glasses Cardiovascular History: Reports: Hypertension Respiratory History: Reports: COPD, Other (See Below) Other Respiratory History: Home O2 @ 2LPM Gastrointestinal History: Reports: Diverticulosis Genitourinary History: Reports: Other (See Below) Other Genitourinary History: kidney stones BARTENDER MANAGER History: Reports: Musculoskeletal History: Reports: None Neurological History: Reports: None Psychiatric History: Reports: Addiction, Anxiety, Depression Endocrine/Metabolic History: Reports: None Insulin Pump Model and Laboratory Equipment Cleaner: None Hematologic History: Reports: None Immunologic History: Reports: None Oncologic (Cancer) History: Reports: None Dermatologic History: Reports: None - Infectious Disease History Infectious Disease History: Reports: Chicken Pox, Hepatitis C, Measles, Mumps, Novel Coronavirus Other Infectious Disease History: unsure of which kind of hepatitis - Past Surgical History Head Surgeries/Procedures: Reports: None HEENT Surgical History: Reports: None Cardiovascular Surgical History: Reports: None Respiratory Surgical History: Reports: None GI Surgical History: Reports: Appendectomy Female Surgical History: Reports: None Endocrine Surgical History: Reports: None Neurological Surgical History: Reports: None Musculoskeletal Surgical History: Reports: Other (See Below) Other Musculoskeletal Surgeries/Procedures:: rt shoulder surg Oncologic Surgical History: Reports: None Dermatological Surgical History: Reports: None Social & Family History - Family History Family Medical History: No Pertinent Family History Respiratory: Reports: Asthma, COPD : Reports: Renal Disease/Insufficiency Psychiatric: Reports: Anxiety, Depression Endocrine/Metabolic: Reports: Diabetes, type II Oncologic: Reports: Hodgkin's Lymphoma - Caffeine Use Caffeine Use: Reports: None Caffeine Use Comment: 4-5 cups a day - Living Situation & Occupation Living situation: Reports: Single ED ROS GENERAL - Review of Systems Review Of Systems: See Below Free Text/Narrative/Comment: General: No fever. Skin: Per HPI Musculoskeletal: No myalgias/arthralgias. Neurologic: No headache. ED EXAM, GENERAL - Physical Exam Exam: See Below Free Text/Narrative:: General Appearance: No acute distress, appears comfortable Skin: 3 cm incision in the volar aspect of the right wrist just proximal to the proximal wrist crease wound is healing by secondary intention is approximately 5 to 6 mm at its widest point there is some retinaculum visible there is healthy granulation tissue there is no exudate there is no surrounding erythema there is no abnormal swelling. Hand is neurovascularly intact HEENT: Normocephalic/atraumatic, sclera anicteric, mucous membranes moist Neck: Normal range of motion Neurologic: Awake, alert, no obvious deficits, moving all extremities Psychiatric: Appropriate, cooperative Departure - Departure Time of Disposition: 17:04 Disposition: Home, Self-Care 01 Condition: Good Clinical Impression: Wound check, abscess - Discharge Information *PRESCRIPTION DRUG MONITORING PROGRAM REVIEWED*: Not Applicable *COPY OF PRESCRIPTION DRUG MONITORING REPORT IN PATIENT KARIE: Not Applicable Instructions: Wound Check Referrals: Vu Stern MD [Primary Care Provider] - Additional Instructions: Please continue to care for your wound and change the dressings once daily as instructed by your surgeon. If you notice worsening drainage worsening redness fevers or swelling please call your surgeon or return to the ER. Please complete your antibiotic course as prescribed by your surgeon. Please continue to change the dressing once a day. Please follow-up with your primary care doctor. The following information is given to patients seen in the emergency department who are being discharged to home. This information is to outline your options for follow-up care. We provide all patients seen in our emergency department with a follow-up referral. The need for follow-up, as well as the timing and circumstances, are variable depending upon the specifics of your emergency department visit. If you don't have a primary care physician on staff, we will provide you with a referral. We always advise you to contact your personal physician following an emergency department visit to inform them of the circumstance of the visit and for follow-up with them and/or the need for any referrals to a consulting specialist. The emergency department will also refer you to a specialist when appropriate. This referral assures that you have the opportunity for follow-up care with a specialist. All of these measure are taken in an effort to provide you with optimal care, which includes your follow-up. Under all circumstances we always encourage you to contact your private physician who remains a resource for coordinating your care. When calling for follow-up care, please make the office aware that this follow-up is from your recent emergency room visit. If for any reason you are refused follow-up, please contact the [facility] Emergency Department at and asked to speak to the emergency department charge nurse. - Assessment/Plan Assessment:: 65-year-old female presenting with right wrist surgical wound no active drainage or exudate no sign of overlying cellulitis or recurrent abscess. Patient will continue wound care as she was instructed to by her surgeon she will complete her antibiotic course. Return precaution discussed and understood.
[2020-09-26 17:07] VITALS: PULSE 97
[2020-09-26] MEDS ORDERED: Bacitracin Oint 1 GM U/D Packet TOP ONE (17:09)
[2020-09-26 17:26] VITALS: BP 100/70
== END 2020-09-26 17:29 | disposition home or self-care (01) ==
LOC: MW.ED 16:49
DX: L02.413 Cutaneous abscess of right upper limb (principal); I10 Essential (primary) hypertension; J44.9 Chronic obstructive pulmonary disease, unspecified; Z79.899 Other long term (current) drug therapy
CPT/HCPCS: 99282

== ENCOUNTER 2021-07-07 23:44 | Emergency (ER) | payer MEDICARE, MEDICAID, OTHER ==
[2021-07-08] MEDS ORDERED: Ondansetron 4 MG/2 ML SDV IVPUSH ONE (00:24)
[2021-07-08] MEDS ORDERED: Ketorolac 30 MG/ML SDV IVPUSH ONE (00:24)
[2021-07-08 00:59] LABS: BLOOD UREA NITROGEN,BUN 41 mg/dL (7.0-18.0); CARBON DIOXIDE,CO2 19.9 mmol/L (21.0-32.0); CHLORIDE,CL 104 mmol/L (98-107); GLUCOSE RANDOM 92 mg/dL (74-106); POTASSIUM,K 4.3 mmol/L (3.5-5.1); SODIUM,NA 138 mmol/L (136-145)
[2021-07-08 01:42] VITALS: BP 101/62; PULSE 75
== END 2021-07-08 01:42 | disposition home or self-care (01) ==
LOC: MW.ED 23:44
DX: B34.9 Viral infection, unspecified (principal); J44.9 Chronic obstructive pulmonary disease, unspecified; Z79.899 Other long term (current) drug therapy
CPT/HCPCS: 36415; 71045; 80053; 84484; 85025; 86140; 87804; 93005; 96374; 96375; 99284; J1885; J2405; U0002

== ENCOUNTER 2022-02-16 15:37 | Emergency (ER) | payer MEDICARE, MEDICAID ==
[2022-02-16 16:20] VITALS: BP 127/70; PULSE 96
[2022-02-16] MEDS ORDERED: Acetaminophen/Codeine 120-12 MG/5 ML Soln 5 ML UD Cup PO ONE (17:19)
== END 2022-02-16 17:46 | disposition home or self-care (01) ==
LOC: MW.ED 15:37
DX: U07.1 COVID-19 (principal); J44.9 Chronic obstructive pulmonary disease, unspecified; E78.00 Pure hypercholesterolemia, unspecified; I10 Essential (primary) hypertension; Z79.899 Other long term (current) drug therapy; Z86.16 Personal history of COVID-19; Z90.49 Acquired absence of other specified parts of digestive tract
CPT/HCPCS: 71045; 99285; A9270; U0002

== ENCOUNTER 2022-05-01 13:11 | Inpatient (IN) | payer MEDICARE, MEDICAID ==
[2022-05-01] MEDS ORDERED: Sodium Chloride 0.9% 10 ML Syringe FLUSH PRN (15:47)
[2022-05-01] MEDS ORDERED: Sodium Chloride 0.9% 2.5 ML Syringe FLUSH PRN (15:47)
[2022-05-01] MEDS ORDERED: Albuterol/Ipratropium 3.0-0.5 MG/3 ML Neb Soln NEB ONE (15:52)
[2022-05-01 17:35] LABS: CARBON DIOXIDE,CO2 22.5 mmol/L (21.0-32.0); POTASSIUM,K 4.3 mmol/L (3.5-5.1)
[2022-05-01] MEDS ORDERED: Azithromycin 250 MG Tab PO ONE (17:52)
[2022-05-01] MEDS ORDERED: cefTRIAXone 1 GM in Sodium Chloride 0.9% 50 ML IV STA (17:52)
[2022-05-01 17:53] LABS: CORONAVIRUS COVID-19 NAA NEGATIVE (NEGATIVE); INFLUENZA A NAA NEGATIVE (NEGATIVE); INFLUENZA B NAA NEGATIVE (NEGATIVE)
[2022-05-01] MEDS ORDERED: Magnesium Sulfate/Water 2 GM in Premix Bag 1 BAG IV ONE (18:04)
[2022-05-01] MEDS ORDERED: Ondansetron 4 MG/2 ML SDV IVPUSH PRN (20:16)
[2022-05-01] MEDS ORDERED: Docusate Sodium 100 MG Cap PO PRN (20:16)
[2022-05-01] MEDS ORDERED: LORazepam 0.5 MG Tab PO PRN (20:20)
[2022-05-01] MEDS ORDERED: Azithromycin 500 MG in Sodium Chloride 0.9% 250 ML IV SCH (20:30)
[2022-05-01] MEDS ORDERED: Pantoprazole 40 MG in Sodium Chloride 0.9% 10 ML IVPUSH SCH (21:00)
[2022-05-01] MEDS: Simvastatin 10 MG Tab PO SCH (22:03)
[2022-05-01] MEDS: Heparin Sodium 5,000 Units/ML Vial SUBCUT SCH (22:04)
[2022-05-01] MEDS: cloNIDine 0.1 MG Tab PO SCH (22:04)
[2022-05-01] MEDS: Acetaminophen 325 MG Tab PO PRN (22:05)
[2022-05-01] MEDS ORDERED: Lactated Ringers 1,000 ML IV ONE (23:00)
[2022-05-02] MEDS: Heparin Sodium 5,000 Units/ML Vial SUBCUT SCH ×3 (05:29→21:54)
[2022-05-02] MEDS: Albuterol/Ipratropium 3.0-0.5 MG/3 ML Neb Soln NEB PRN ×3 (05:57→19:58)
[2022-05-02 07:05] LABS: CARBON DIOXIDE,CO2 28.4 mmol/L (21.0-32.0); POTASSIUM,K 4.2 mmol/L (3.5-5.1)
[2022-05-02] MEDS: Morphine 2 MG/ML SYRINGE IVPUSH PRN ×2 (09:01→13:28)
[2022-05-02] MEDS: Lisinopril 10 MG Tab PO SCH (09:07)
[2022-05-02] MEDS: Venlafaxine 75 MG Cap.ER PO SCH (09:07)
[2022-05-02] MEDS: cloNIDine 0.1 MG Tab PO SCH ×2 (09:08→21:59)
[2022-05-02] MEDS: VERAPAMIL 120 MG PO SCH (09:19)
[2022-05-02] MEDS: FORMOTEROL INH SCH ×2 (09:20→21:58)
[2022-05-02] MEDS: BUDESONIDE INH SCH ×2 (09:20→21:58)
[2022-05-02] MEDS: UMECLIDINIUM BROMIDE 62.5 MCG INH SCH (09:20)
[2022-05-02] MEDS: Omeprazole 20 MG Cap.CR PO SCH (12:20)
[2022-05-02] MEDS ORDERED: Morphine 2 MG/ML SYRINGE IVPUSH PRN (21:27)
[2022-05-02] MEDS: Oxybutynin 5 MG Tab PO SCH (21:54)
[2022-05-02] MEDS: Simvastatin 10 MG Tab PO SCH (21:55)
[2022-05-02] MEDS: cefTRIAXone 1 GM in Sodium Chloride 0.9% 50 ML IV SCH (21:59)
[2022-05-02] MEDS: Azithromycin 500 MG in Sodium Chloride 0.9% 250 ML IV SCH (23:08)
[2022-05-03] MEDS: Heparin Sodium 5,000 Units/ML Vial SUBCUT SCH ×3 (05:32→20:54)
[2022-05-03] MEDS: Omeprazole 20 MG Cap.CR PO SCH (06:50)
[2022-05-03 08:18] LABS: CARBON DIOXIDE,CO2 27.2 mmol/L (21.0-32.0); POTASSIUM,K 4.6 mmol/L (3.5-5.1)
[2022-05-03] MEDS: Venlafaxine 75 MG Cap.ER PO SCH (09:34)
[2022-05-03] MEDS: FORMOTEROL INH SCH ×2 (09:36→20:58)
[2022-05-03] MEDS: BUDESONIDE INH SCH ×2 (09:36→20:58)
[2022-05-03] MEDS: UMECLIDINIUM BROMIDE 62.5 MCG INH SCH (09:37)
[2022-05-03] MEDS: VERAPAMIL 120 MG PO SCH (09:37)
[2022-05-03] MEDS: cloNIDine 0.1 MG Tab PO SCH (09:42)
[2022-05-03] MEDS: Lisinopril 10 MG Tab PO SCH (09:42)
[2022-05-03] MEDS: traMADol 50 MG Tab PO PRN (11:11)
[2022-05-03] MEDS ORDERED: Sodium Chloride 0.9% 1,000 ML IV ONE (14:30)
[2022-05-03] MEDS ORDERED: Sodium Chloride 0.9% 500 ML IV ONE (14:52)
[2022-05-03] MEDS: Simvastatin 10 MG Tab PO SCH (20:53)
[2022-05-03] MEDS: Oxybutynin 5 MG Tab PO SCH (20:53)
[2022-05-03] MEDS: cefTRIAXone 1 GM in Sodium Chloride 0.9% 50 ML IV SCH (20:53)
[2022-05-03] MEDS: Azithromycin 500 MG in Sodium Chloride 0.9% 250 ML IV SCH (22:26)
[2022-05-04] MEDS: Albuterol/Ipratropium 3.0-0.5 MG/3 ML Neb Soln NEB PRN (01:50)
[2022-05-04] MEDS: traMADol 50 MG Tab PO PRN (01:52)
[2022-05-04] MEDS: Heparin Sodium 5,000 Units/ML Vial SUBCUT SCH ×3 (05:42→21:20)
[2022-05-04] MEDS: Omeprazole 20 MG Cap.CR PO SCH (06:45)
[2022-05-04 06:57] LABS: CARBON DIOXIDE,CO2 26.1 mmol/L (21.0-32.0); POTASSIUM,K 4.4 mmol/L (3.5-5.1)
[2022-05-04] MEDS: BUDESONIDE INH SCH ×2 (08:51→21:23)
[2022-05-04] MEDS: VERAPAMIL 120 MG PO SCH (08:51)
[2022-05-04] MEDS: UMECLIDINIUM BROMIDE 62.5 MCG INH SCH (08:51)
[2022-05-04] MEDS: Venlafaxine 75 MG Cap.ER PO SCH (08:51)
[2022-05-04] MEDS: FORMOTEROL INH SCH ×2 (08:51→21:23)
[2022-05-04] MEDS: Acetaminophen 325 MG Tab PO PRN ×2 (09:10→23:44)
[2022-05-04] MEDS: Lisinopril 10 MG Tab PO SCH (09:12)
[2022-05-04] MEDS ORDERED: Benzonatate 100 MG Cap PO PRN (11:34)
[2022-05-04] MEDS: Oxybutynin 5 MG Tab PO SCH (21:21)
[2022-05-04] MEDS: cefTRIAXone 1 GM in Sodium Chloride 0.9% 50 ML IV SCH (21:22)
[2022-05-04] MEDS: Simvastatin 10 MG Tab PO SCH (21:22)
[2022-05-04] MEDS: Azithromycin 500 MG in Sodium Chloride 0.9% 250 ML IV SCH (22:50)
[2022-05-05] MEDS: Heparin Sodium 5,000 Units/ML Vial SUBCUT SCH ×2 (05:44→13:35)
[2022-05-05 06:32] LABS: CARBON DIOXIDE,CO2 26.6 mmol/L (21.0-32.0); POTASSIUM,K 4.6 mmol/L (3.5-5.1)
[2022-05-05] MEDS: Omeprazole 20 MG Cap.CR PO SCH (06:54)
[2022-05-05] MEDS: Venlafaxine 75 MG Cap.ER PO SCH (08:27)
[2022-05-05] MEDS: FORMOTEROL INH SCH (08:27)
[2022-05-05] MEDS: BUDESONIDE INH SCH (08:27)
[2022-05-05] MEDS: VERAPAMIL 120 MG PO SCH (08:28)
[2022-05-05] MEDS: UMECLIDINIUM BROMIDE 62.5 MCG INH SCH (08:28)
[2022-05-05] MEDS ORDERED: cefTRIAXone 1 GM in Sodium Chloride 0.9% 50 ML IV SCH (11:00)
[2022-05-05] MEDS ORDERED: Azithromycin 250 MG Tab PO SCH (11:00)
[2022-05-05 11:30] VITALS: BP 169/79; PULSE 68
== END 2022-05-05 11:35 | disposition home or self-care (01) | DRG 689 ==
LOC: MW.ED 13:11 → MW.MS 19:33 → OBSVTOIN 19:33 → MW.MS 05-02 13:00
PROVIDERS: ADMIT Student in an Organized Health Care Education/Training Program; ATTEND Student in an Organized Health Care Education/Training Program
DX: N12 Tubulo-interstitial nephritis, not specified as acute or chronic (principal); J18.9 Pneumonia, unspecified organism; I10 Essential (primary) hypertension; J44.0 Chronic obstructive pulmonary disease with (acute) lower respiratory infection; J44.1 Chronic obstructive pulmonary disease with (acute) exacerbation; I11.0 Hypertensive heart disease with heart failure; Z86.16 Personal history of COVID-19; I50.9 Heart failure, unspecified; Z79.51 Long term (current) use of inhaled steroids; N20.0 Calculus of kidney; R10.9 Unspecified abdominal pain; R51.9 Headache, unspecified; F32.9 Major depressive disorder, single episode, unspecified; B96.20 Unspecified Escherichia coli [E. coli] as the cause of diseases classified elsewhere; E78.00 Pure hypercholesterolemia, unspecified; K57.90 Diverticulosis of intestine, part unspecified, without perforation or abscess without bleeding; F41.9 Anxiety disorder, unspecified; F32.A Depression, unspecified; Z20.822 Contact with and (suspected) exposure to COVID-19; Z86.19 Personal history of other infectious and parasitic diseases; Z99.81 Dependence on supplemental oxygen; Z79.52 Long term (current) use of systemic steroids; Z79.899 Other long term (current) drug therapy; Z87.440 Personal history of urinary (tract) infections; Z87.891 Personal history of nicotine dependence
CPT/HCPCS: 0240U; 36415; 71045; 74176; 80048; 80053; 81001; 83735; 84100; 84484; 85025; 87040; 87086; 87088; 87186; 93005; 96365; 96366; 96372; 96375; 99285; A9270-GY; C9113; G0378; J0456; J0696; J1644; J2270; J3475; J3490; J7030; J7050; J7120; J7620-GY

== ENCOUNTER 2022-05-10 17:13 | Inpatient (IN) | payer MEDICARE, MEDICAID ==
[2022-05-10] MEDS ORDERED: LORazepam 0.5 MG Tab PO PRN (18:28)
[2022-05-10] MEDS ORDERED: Omeprazole 20 MG Cap.CR PO PRN (18:28)
[2022-05-10] MEDS ORDERED: Benzonatate 100 MG Cap PO PRN (18:28)
[2022-05-10] MEDS ORDERED: Levofloxacin/Dextrose 5%-Water 750 MG in Premix Bag 1 BAG IV SCH (18:30)
[2022-05-10] MEDS ORDERED: methylPREDNISolone Sodium Succinate 125 MG/2 ML SDV IVPUSH SCH (18:30)
[2022-05-10] MEDS ORDERED: Albuterol/Ipratropium 3.0-0.5 MG/3 ML Neb Soln ONE (19:06)
[2022-05-10] MEDS: Albuterol/Ipratropium 3.0-0.5 MG/3 ML Neb Soln NEB SCH ×2 (19:14→23:26)
[2022-05-10 19:18] LABS: CARBON DIOXIDE,CO2 23.4 mmol/L (21.0-32.0); POTASSIUM,K 4.5 mmol/L (3.5-5.1)
[2022-05-10 19:48] LABS: CORONAVIRUS COVID-19 NAA NEGATIVE (NEGATIVE); INFLUENZA A NAA NEGATIVE (NEGATIVE); INFLUENZA B NAA NEGATIVE (NEGATIVE); RESPIRATORY SYNCYTIAL VIR NAA NEGATIVE (NEGATIVE)
[2022-05-10] MEDS ORDERED: Acetaminophen 325 MG Tab PO PRN ×2 (20:13→20:14)
[2022-05-10] MEDS: Albuterol/Ipratropium 3.0-0.5 MG/3 ML Neb Soln NEB PRN (20:55)
[2022-05-10] MEDS ORDERED: cloNIDine 0.1 MG Tab PO SCH (21:00)
[2022-05-10] MEDS ORDERED: Simvastatin 10 MG Tab PO SCH (21:00)
[2022-05-10] MEDS ORDERED: Enoxaparin 40 MG/0.4 ML Syringe SUBCUT SCH (21:00)
[2022-05-10] MEDS ORDERED: LORazepam 2 MG/ML SDV IVPUSH ONE (22:30)
[2022-05-10] MEDS ORDERED: Lactated Ringers 1,000 ML IV SCH (23:15)
[2022-05-10 23:52] VITALS: PULSE 131
[2022-05-11] MEDS ORDERED: LORazepam 2 MG/ML SDV IVPUSH ONE
[2022-05-11] MEDS: Albuterol/Ipratropium 3.0-0.5 MG/3 ML Neb Soln NEB PRN (00:52)
[2022-05-11] MEDS ORDERED: propofoL 100 ML ONE (01:14)
[2022-05-11] MEDS ORDERED: fentaNYL 50 MCG/ML SDV IVPUSH PRN (02:07)
[2022-05-11] MEDS ORDERED: propofoL 100 ML IV SCH (02:15)
[2022-05-11] MEDS ORDERED: Etomidate 2 MG/ML 20 ML SDV IVPUSH ONE (02:44)
[2022-05-11] MEDS ORDERED: Rocuronium 100 MG/10 ML MDV IVPUSH ONE (02:44)
[2022-05-11 06:49] VITALS: BP 139/79
[2022-05-11] MEDS ORDERED: Venlafaxine 75 MG Cap.ER PO SCH (09:00)
[2022-05-11] MEDS ORDERED: Lisinopril 10 MG Tab PO SCH (09:00)
[2022-05-11] MEDS ORDERED: Albuterol/Ipratropium 3.0-0.5 MG/3 ML Neb Soln NEB SCH (18:30)
== END 2022-05-11 02:45 | DRG 193 ==
LOC: MW.MS 17:13 → MW.ICU 05-11 00:14 → OBSVTOIN 05-11 00:23
PROVIDERS: ADMIT Student in an Organized Health Care Education/Training Program; ATTEND Student in an Organized Health Care Education/Training Program
PROC: 0BH17EZ Insertion of Endotracheal Airway into Trachea, Via Natural or Artificial Opening (ICD-10-PCS; principal; 2022-05-11)
DX: J18.9 Pneumonia, unspecified organism (principal); J96.20 Acute and chronic respiratory failure, unspecified whether with hypoxia or hypercapnia; Z99.81 Dependence on supplemental oxygen; J44.0 Chronic obstructive pulmonary disease with (acute) lower respiratory infection; I10 Essential (primary) hypertension; E78.00 Pure hypercholesterolemia, unspecified; F17.200 Nicotine dependence, unspecified, uncomplicated; J44.1 Chronic obstructive pulmonary disease with (acute) exacerbation; N17.9 Acute kidney failure, unspecified; I11.0 Hypertensive heart disease with heart failure; I50.9 Heart failure, unspecified; F17.210 Nicotine dependence, cigarettes, uncomplicated; Z20.822 Contact with and (suspected) exposure to COVID-19; F41.9 Anxiety disorder, unspecified; F32.A Depression, unspecified; Z79.899 Other long term (current) drug therapy; Z97.3 Presence of spectacles and contact lenses; Z87.01 Personal history of pneumonia (recurrent); Z87.442 Personal history of urinary calculi; Z90.49 Acquired absence of other specified parts of digestive tract
CPT/HCPCS: 0241U; 36415; 36600; 71045; 80053; 82803; 83605; 85025; 87040; 94002; 94640; 94660; 31500; 36620; 96365; 96366; 96372; 96375; 96376; A9270-GY; G0378; G0379; J1650; J1956; J2060; J2704; J2930; J3490; J7120; J7620-GY

== ENCOUNTER 2022-06-27 14:17 | Emergency (ER) | payer MEDICARE, MEDICAID ==
[2022-06-27] MEDS ORDERED: propofoL 100 ML ONE (14:26)
[2022-06-27] MEDS ORDERED: Ondansetron 4 MG/2 ML SDV IVPUSH ONE (14:30)
[2022-06-27] MEDS ORDERED: methylPREDNISolone Sodium Succinate 125 MG/2 ML SDV IVPUSH ONE (14:30)
[2022-06-27] MEDS ORDERED: Albuterol/Ipratropium 3.0-0.5 MG/3 ML Neb Soln NEB ONE (14:30)
[2022-06-27] MEDS ORDERED: Sodium Chloride 0.9% 2.5 ML Syringe FLUSH PRN (14:30)
[2022-06-27] MEDS ORDERED: Sodium Chloride 0.9% 10 ML Syringe FLUSH PRN (14:30)
[2022-06-27] MEDS ORDERED: Cefepime 2 GM in Premix Bag 50 BAG IV ONE ×2 (14:36→15:30)
[2022-06-27 14:41] VITALS: BP 133/72; PULSE 113
[2022-06-27] MEDS ORDERED: Etomidate 2 MG/ML 20 ML SDV IVPUSH ONE (14:43)
[2022-06-27] MEDS ORDERED: Rocuronium 100 MG/10 ML MDV IVPUSH STA (14:43)
[2022-06-27] MEDS ORDERED: propofoL 100 ML IV SCH (14:45)
[2022-06-27 15:02] LABS: BLOOD UREA NITROGEN,BUN 50 mg/dL (7.0-18.0); CARBON DIOXIDE,CO2 19.1 mmol/L (21.0-32.0); CHLORIDE,CL 102 mmol/L (98-107); ESTIMATED GFR 13 mL/min (>60); GLUCOSE RANDOM 122 mg/dL (74-106); LIPASE 63 U/L (73-393); POTASSIUM,K 5.6 mmol/L (3.5-5.1); SODIUM,NA 137 mmol/L (136-145)
[2022-06-27] MEDS ORDERED: Sodium Chloride 0.9% 1,000 ML IV ONE ×2 (15:06)
[2022-06-27] MEDS ORDERED: Cefepime 2 GM in Sodium Chloride 0.9% 50 ML IV ONE (15:30)
[2022-06-27] MEDS ORDERED: Midazolam 5 MG/ML SDV ONE (15:32)
[2022-06-27 15:37] LABS: CORONAVIRUS COVID-19 NAA NEGATIVE (NEGATIVE); INFLUENZA A NAA NEGATIVE (NEGATIVE); INFLUENZA B NAA NEGATIVE (NEGATIVE); RESPIRATORY SYNCYTIAL VIR NAA NEGATIVE (NEGATIVE)
[2022-06-27] MEDS ORDERED: Midazolam 5 MG/ML SDV IVPUSH ONE (15:44)
[2022-06-27] MEDS ORDERED: Midazolam 1 MG/ML 2 ML SDV ONE (16:20)
[2022-06-27] MEDS ORDERED: Midazolam 1 MG/ML 2 ML SDV IVPUSH ONE (16:22)
== END 2022-06-27 17:20 ==
LOC: MW.ED 14:17
DX: J44.1 Chronic obstructive pulmonary disease with (acute) exacerbation (principal); J18.9 Pneumonia, unspecified organism; N17.9 Acute kidney failure, unspecified; E87.5 Hyperkalemia; I10 Essential (primary) hypertension; E78.00 Pure hypercholesterolemia, unspecified; Z79.899 Other long term (current) drug therapy; Z87.891 Personal history of nicotine dependence; Z20.822 Contact with and (suspected) exposure to COVID-19
CPT/HCPCS: 0241U; 31500; 36415; 36600; 43752; 51702; 71045; 80053; 80305; 80307; 81001; 82803; 83605; 83690; 83735; 84484; 85025; 85610; 85730; 87040; 93005; 94640; 96361; 96365; 96375; 99285; J0692; J2250; J2405; J2704; J2930; J3490; J7030; J7050; J7620-GY